=== PATIENT | female | born 1955 | race Caucasian/White ===

== ENCOUNTER → 2017-04-24 | Outpatient (CLI) | payer BC ==
[~2017-04-24] MED LIST: ATOR-54 PO; FLUO20CA37 PO; HYZ/10015 PO; LEVO75TA25 PO; METO1TAB31 PO; NITR0.4S UT; WLLSR/150 PO
[2017-04-24 16:19] LABS: RATIO 32.6 mcg/mg (0-30.0)
== END | disposition home or self-care (01) ==
LOC: C.LAB1850 14:45
PROVIDERS: ATTEND Internal Medicine Endocrinology, Diabetes & Metabolism
DX: E11.65 Type 2 diabetes mellitus with hyperglycemia (principal)

== ENCOUNTER → 2017-11-26 | Outpatient (CLI) | payer BC ==
[~2017-11-26] MED LIST changes: +METO-478 PO; -METO1TAB31 PO
[2017-11-26 09:46] LABS: HEMOGLOBIN A1C 7.5 % (4.5-5.6)
== END | disposition home or self-care (01) ==
LOC: C.LAB1850 07:34
PROVIDERS: ATTEND Internal Medicine Endocrinology, Diabetes & Metabolism
DX: E11.65 Type 2 diabetes mellitus with hyperglycemia (principal)

== ENCOUNTER 2018-01-03 19:08 | Emergency (ER) | payer BC ==
[~2018-01-03] VITALS: Ht 162.6 cm; Wt 81.6 kg
[2018-01-03 19:15] VITALS: TEMP 36.8; Ht 162.6 cm; Wt 81.6 kg
[2018-01-03 19:45] VITALS: O2SAT 97
[2018-01-03 19:47] LABS: BASO % 0.5 %; BASO ABS # 0.04 K/uL (0-0.2); EOS % 2.3 %; EOS ABS # 0.19 K/uL (0-0.5); HEMATOCRIT 41.8 % (37-47); HEMOGLOBIN 13.9 g/dL (12.0-16.0); IG# 0.02 K/uL (0.00-0.02); LYMPH % 25.3 %; LYMPH ABS # 2.05 K/uL (1.2-3.4); MEAN CELL VOLUME 88.2 fL (80-100); MEAN CORPUSCULAR HEMOGLOBIN 29.3 pg (25-34); MEAN CORPUSCULAR HGB CONC 33.3 g/dl (32-36); MEAN PLATELET VOLUME 10.1 fL (7.4-10.4); MONO % 5.8 %; MONO ABS # 0.47 K/uL (0.11-0.59); NEUT % 65.9 %; NEUT ABS # 5.34 K/uL (1.4-6.5); PLATELET COUNT 264 K/uL (130-400); RED CELL DISTRIBUTION WIDTH CV 14.1 % (11.5-14.5); RED CELL DISTRIBUTION WIDTH SD 45.7 fL (36.4-46.3); WHITE BLOOD COUNT 8.11 K/uL (4.8-10.8)
--- NOTE | 2018-01-03 19:50 | DIAGNOSTIC IMAGING REPORT ---
CHEST ONE VIEW PORTABLE CLINICAL HISTORY: EVALUATE ALTERED MENTAL STATUS/WEAKNESS COMPARISON STUDY: No previous studies for comparison. FINDINGS: The bones soft tissues and hemidiaphragms are normal. The cardiomediastinal silhouette is normal. The lungs are clear. The pulmonary vasculature is normal. IMPRESSION: Negative chest. The above report was generated using voice recognition software. It may contain grammatical, syntax or spelling errors. Electronically signed by: Víctor Pitts M.D. 01/03/2018 7:49 PM Dictated Date/Time: 01/03/2018 7:49 PM
[2018-01-03 19:57] LABS: INR 0.9 (0.9-1.1); PTT PATIENT 23.6 SECONDS (21.0-31.0)
[2018-01-03 20:05] LABS: ALBUMIN 4.3 gm/dl (3.4-5.0); ALT/SGPT 44 U/L (12-78); BLOOD UREA NITROGEN 16 mg/dl (7-18); CALCIUM 8.9 mg/dl (8.5-10.1); CARBON DIOXIDE 29 mmol/L (21-32); CREATININE 0.82 mg/dl (0.60-1.20); GLUCOSE 133 mg/dl (70-99); POTASSIUM 3.7 mmol/L (3.5-5.1); SODIUM 138 mmol/L (136-145)
[2018-01-03] MEDS ORDERED: ATOR-26 PO (20:15)
[2018-01-03 20:16] LABS: ALKALINE PHOSPHATASE 115 U/L (45-117); AST/SGOT 25 U/L (15-37); TOTAL PROTEIN 8.4 gm/dl (6.4-8.2)
[2018-01-03] MEDS ORDERED: ESCI1TAB10 PO (20:16)
[2018-01-03] MEDS ORDERED: FLUO10CA48 PO (20:18)
[2018-01-03] MEDS ORDERED: FURO-85 PO (20:20)
[2018-01-03] MEDS ORDERED: LEVO100T7 PO (20:22)
[2018-01-03] MEDS ORDERED: HYZ/10015 PO (20:29)
[2018-01-03] MEDS ORDERED: METF-384 PO (20:31)
[2018-01-03] MEDS ORDERED: MELO-84 PO (20:34)
[2018-01-03] MEDS ORDERED: NVLGI/PEN SQ ×2 (20:36→20:38)
[2018-01-03] MEDS ORDERED: LIRA1INJ2 SQ (20:42)
[2018-01-03] MEDS ORDERED: METO-217 PO (20:46)
[2018-01-03] MEDS ORDERED: CHOL500024 SQ (20:49)
--- NOTE | 2018-01-03 20:54 | DIAGNOSTIC IMAGING REPORT ---
BRAIN WITHOUT CONTRAST HISTORY: Neuropathy left facial numbness and drooping TECHNIQUE: Multiplanar multisequence MRI of the brain was performed without the use of contrast. COMPARISON STUDY: None. FINDINGS: Diffusion-weighted images are considered negative for an acute ischemic insult. There are several foci of increased signal within the periventricular deep white matter regions. This is consistent with chronic small vessel change. Ventricular system is midline. Sella and parasellar regions are unremarkable. IMPRESSION: No acute intracranial abnormality. Mild age-related chronic small vessel change. The above report was generated using voice recognition software. It may contain grammatical, syntax or spelling errors. Electronically signed by: Víctor Pitts M.D. 01/03/2018 8:53 PM Dictated Date/Time: 01/03/2018 8:52 PM
[2018-01-03] MEDS ORDERED: INSU100I23 SQ (21:11)
[2018-01-03] MEDS ORDERED: PRED20TA2 PO (21:16)
[2018-01-03] MEDS ORDERED: VALA1TAB2 PO (21:16)
--- NOTE | 2018-01-03 21:29 | EMERGENCY ROOM VISIT NOTE ---
History Report prepared by Beverley: Deanna Kinney Under the Supervision of: Dr. Silvestre Milner D.O. First contact with patient: 19:19 Chief Complaint: NEURO SYMPTOMS Stated Complaint: PARESTHESIA, LT SIDE FACE, NECK, HEADACHE History of Present Illness The patient is a 62 year old female who presents to the Emergency Room with complaints of persistent left sided facial numbness starting yesterday. She was sent to the ED after being seen at [facility]. She reports numbness to her tongue and left face. She has some spasms in the left side of her neck and a left sided headache. She feels like her balance is off and her feels that her speech is less clear than usual. She has never had this before. She denies numbness or weakness in the arms, legs, or back. She has a history of type 2 diabetes and hypothyroidism. She denies any history of stroke, [place] palsy, or shingles. She denies any chance of a tick bite. Source of History: patient, spouse/significant other Onset: yesterday Position: other (left face) Quality: numbness Timing: other (persistent) Associated Symptoms: + headache, + neck pain, No weakness Review of Systems See HPI for pertinent positives & negatives. A total of 10 systems reviewed and were otherwise negative. Past Medical & Surgical Medical Problems: (1) Diabetes (2) Hypertension Family History Cancer Diabetes mellitus Heart disease Hypertension Seizures Social History Smoking Status: Never Smoker Alcohol Use: none Drug Use: none Marital Status: Housing Status: lives with significant other Occupation Status: employed Current/Historical Medications Scheduled Atorvastatin (Lipitor), 80 MG PO DAILY Cholecalciferol (Vitamin D3 Ultra Potency), 50,000 UNITS SQ WK Escitalopram Oxalate (Lexapro), 20 MG PO DAILY Fluoxetine (Prozac), 30 MG PO DAILY Hctz/Losartan (Hyzaar 25MG/100MG), 1 TAB PO DAILY Insulin Aspart (Novolog Flexpen), 3 UNITS SQ BIDM Insulin Aspart (Novolog Flexpen), 15 UNITS SQ EVENING MEAL Insulin Glargine (Basaglar Kwikpen), 45 UNITS SQ HS Levothyroxine Sodium (Levothyroxine Sodium), 1 TAB PO DAILY Liraglutide (Weight Management (Saxenda), 1.2 MG SQ DAILY/UD Meloxicam (Mobic), 15 MG PO DAILY Metformin Hcl (Glucophage), 1,000 MG PO BID Metoprolol Succinate (Toprol Xl), 50 MG PO DAILY Prednisone (Prednisone Tab), 40 MG PO DAILY Valacyclovir Hcl (Valtrex), 1,000 MG PO TID Scheduled PRN Furosemide (Lasix), 20 MG PO BID PRN for EDEMA/WEIGHT GAIN Allergies Coded Allergies: No Known Allergies (Unverified , 09/22/12) Physical Exam Vital Signs Date Time Temp Pulse Resp B/P (MAP) Pulse Ox O2 Delivery O2 Flow Rate FiO2 01/03/18 21:33 96 24 146/88 98 01/03/18 21:08 84 01/03/18 19:47 78 16 154/97 97 Room Air 01/03/18 19:45 97 Room Air 01/03/18 19:15 36.8 76 18 170/91 98 Room Air Physical Exam GENERAL: Patient is awake, alert, and in no acute distress. Patient is resting comfortably and showing no signs of anxiety EYES: The conjunctivae are clear. The pupils are round and reactive. EARS, NOSE, MOUTH AND THROAT: The nose is without any evidence of any deformity. Mucous membranes are moist tongue is midline. TMs clear bilaterally. NECK: The neck is nontender and supple. RESPIRATORY: Normal respiratory effort is noted there is no evidence of wheezing rhonchi or rales CARDIOVASCULAR: Regular rate and rhythm noted there no murmurs rubs or gallops normal S1 normal S2 GASTROINTESTINAL: The abdomen is soft. Bowel sounds are present in all quadrants. Abdomen is nontender MUSCULOSKELETAL/EXTREMITIES: There is no evidence of gross deformity full range of motion is noted in the hips and shoulders SKIN: There is no obvious evidence of any rash. There are no petechiae, pallor or cyanosis noted. NEUROLOGIC: Patient is awake alert and oriented x3 strength is symmetric patellar reflexes are 2+ bilaterally. There was a left facial droop noted with involvement of the forehead, speech was clear. Medical Decision & Procedures ER Provider Diagnostic Interpretation: X-ray results as stated below per interpretation by me and the radiologist. Radiology results as stated below per my review and radiologist interpretation: CHEST ONE VIEW PORTABLE CLINICAL HISTORY: EVALUATE ALTERED MENTAL STATUS/WEAKNESS COMPARISON STUDY: No previous studies for comparison. FINDINGS: The bones soft tissues and hemidiaphragms are normal. The cardiomediastinal silhouette is normal. The lungs are clear. The pulmonary vasculature is normal. IMPRESSION: Negative chest. The above report was generated using voice recognition software. It may contain grammatical, syntax or spelling errors. Electronically signed by: Víctor Pitts M.D. 01/03/2018 7:49 PM Dictated Date/Time: 01/03/2018 7:49 PM BRAIN WITHOUT CONTRAST HISTORY: Neuropathy left facial numbness and drooping TECHNIQUE: Multiplanar multisequence MRI of the brain was performed without the use of contrast. COMPARISON STUDY: None. FINDINGS: Diffusion-weighted images are considered negative for an acute ischemic insult. There are several foci of increased signal within the periventricular deep white matter regions. This is consistent with chronic small vessel change. Ventricular system is midline. Sella and parasellar regions are unremarkable. IMPRESSION: No acute intracranial abnormality. Mild age-related chronic small vessel change. The above report was generated using voice recognition software. It may contain grammatical, syntax or spelling errors. Electronically signed by: Víctor Pitts M.D. 01/03/2018 8:53 PM Dictated Date/Time: 01/03/2018 8:52 PM Laboratory Results 01/03/18 19:30 Red Blood Count 4.74, Mean Corpuscular Volume 88.2, Mean Corpuscular Hemoglobin 29.3, Mean Corpuscular Hemoglobin Concent 33.3, Mean Platelet Volume 10.1, Neutrophils (%) (Auto) 65.9, Lymphocytes (%) (Auto) 25.3, Monocytes (%) (Auto) 5.8, Eosinophils (%) (Auto) 2.3, Basophils (%) (Auto) 0.5, Neutrophils # (Auto) 5.34, Lymphocytes # (Auto) 2.05, Monocytes # (Auto) 0.47, Eosinophils # (Auto) 0.19, Basophils # (Auto) 0.04 01/03/18 19:30 Test 01/03/18 19:30 01/03/18 20:02 White Blood Count 8.11 K/uL (4.8-10.8) Red Blood Count 4.74 M/uL (4.2-5.4) Hemoglobin 13.9 g/dL (12.0-16.0) Hematocrit 41.8 % (37-47) Mean Corpuscular Volume 88.2 fL (80-100) Mean Corpuscular Hemoglobin 29.3 pg (25-34) Mean Corpuscular Hemoglobin Concent 33.3 g/dl (32-36) Platelet Count 264 K/uL (130-400) Mean Platelet Volume 10.1 fL (7.4-10.4) Neutrophils (%) (Auto) 65.9 % Lymphocytes (%) (Auto) 25.3 % Monocytes (%) (Auto) 5.8 % Eosinophils (%) (Auto) 2.3 % Basophils (%) (Auto) 0.5 % Neutrophils # (Auto) 5.34 K/uL (1.4-6.5) Lymphocytes # (Auto) 2.05 K/uL (1.2-3.4) Monocytes # (Auto) 0.47 K/uL (0.11-0.59) Eosinophils # (Auto) 0.19 K/uL (0-0.5) Basophils # (Auto) 0.04 K/uL (0-0.2) RDW Standard Deviation 45.7 fL (36.4-46.3) RDW Coefficient of Variation 14.1 % (11.5-14.5) Immature Granulocyte % (Auto) 0.2 % Immature Granulocyte # (Auto) 0.02 K/uL (0.00-0.02) Prothrombin Time 9.4 SECONDS (9.0-12.0) Prothromb Time International Ratio 0.9 (0.9-1.1) Activated Partial Thromboplast Time 23.6 SECONDS (21.0-31.0) Partial Thromboplastin Ratio 0.9 Anion Gap 6.0 mmol/L (3-11) Est Creatinine Clear Calc Drug Dose 75.4 ml/min Estimated GFR () 90.1 Estimated GFR (Non- 77.8 BUN/Creatinine Ratio 20.0 (10-20) Calcium Level 8.9 mg/dl (8.5-10.1) Magnesium Level 2.2 mg/dl (1.8-2.4) Total Bilirubin 0.3 mg/dl (0.2-1) Direct Bilirubin < 0.1 mg/dl (0-0.2) Aspartate Amino Transf (AST/SGOT) 25 U/L (15-37) Alanine Aminotransferase (ALT/SGPT) 44 U/L (12-78) Alkaline Phosphatase 115 U/L (45-117) Troponin I < 0.015 ng/ml (0-0.045) Total Protein 8.4 gm/dl (6.4-8.2) Albumin 4.3 gm/dl (3.4-5.0) Thyroid Stimulating Hormone (TSH) 3.690 uIu/ml (0.300-4.500) Lyme Disease IgG Antibody NEG (NEG) Lyme Disease IgM Antibody NEG (NEG) Urine Color YELLOW Urine Appearance CLOUDY (CLEAR) Urine pH 7.5 (4.5-7.5) Urine Specific [place] 1.015 (1.000-1.030) Urine Protein NEG (NEG) Urine Glucose (UA) NEG (NEG) Urine Ketones NEG (NEG) Urine Occult Blood NEG (NEG) Urine Nitrite NEG (NEG) Urine Bilirubin NEG (NEG) Urine Urobilinogen NEG (NEG) Urine Leukocyte Esterase NEG (NEG) Urine WBC (Auto) 1-5 /hpf (0-5) Urine RBC (Auto) 0-4 /hpf (0-4) Urine Hyaline Casts (Auto) 0 /lpf (0-5) Urine Epithelial Cells (Auto) 20-30 /lpf (0-5) Urine Bacteria (Auto) NEG (NEG) Laboratory results per my review. Medications Administered Medications (Trade) Dose Ordered Sig/Monique Route Start Time Stop Time Status Last Admin Dose Admin Valacyclovir HCl (Valtrex Tab) 1,000 mg NOW ONCE PO 01/03/18 21:15 01/03/18 21:16 DC 01/03/18 21:31 1,000 MG Prednisone (PredniSONE TAB) 60 mg NOW STAT PO 01/03/18 21:09 01/03/18 21:11 DC 01/03/18 21:30 60 MG ECG Per My Interpretation Indication: weakness Rate (beats per minute): 70 Rhythm: normal sinus Findings: no ectopy, other (no acute ST segment abnormality) Comparison ECG Date: no prior available ED Course 1919: The patient was evaluated in room B12B. A complete history and physical examination were performed. 2108: Prednisone 60 mg PO. 2110: Upon reevaluation, the patient is resting comfortably. I discussed the results and treatment plan with her. She verbalized agreement of the treatment plan. She was discharged home. 2114: Valtrex Tab 1000 mg PO. Medical Decision Prior records/ancillary studies reviewed and summarized above. Nursing notes reviewed. Additional history obtained from spouse. Differential diagnosis: Etiologies such as metabolic, infection, hypo/hyperglycemia, electrolyte abnormalities, cardiac sources, intracerebral event, toxicologic, neurologic, as well as others were entertained. The patient is a 62-year-old female who presented to the emergency department for an evaluation of left-sided facial droop. The patient did not have any other symptoms and appears to have forehead involvement but she was seen at the [facility] and sent to the emergency department for possible stroke. I discussed patient's laboratory and radiographic studies with her. She was started on Valtrex and prednisone. She was encouraged to follow-up with her primary care physician as soon as possible. She was also encouraged to return the emergency department immediately if symptoms change worsen or the need arises. Medication Reconcilliation Current Medication List: was personally reviewed by me Blood Pressure Screening Patient's blood pressure: Elevated blood pressure Blood pressure disposition: Elevated BP felt to be situational Impression Primary Impression: Kevin's palsy Scribe Attestation The scribe's documentation has been prepared under my direction and personally reviewed by me in its entirety. I confirm that the note above accurately reflects all work, treatment, procedures, and medical decision making performed by me. Departure Information Dispostion Home / Self-Care Prescriptions Prednisone (Prednisone Tab) 20 Mg Tab 40 MG PO DAILY, #10 TAB Prov: Silvestre Milner, DO 01/03/18 Valacyclovir Hcl (VALTREX) 1 Gm Tab 1000 MG PO TID, #21 TAB Prov: Silvestre Milner, DO 01/03/18 Referrals Megan Valencia M.D. (PCP) Forms HOME CARE DOCUMENTATION FORM, IMPORTANT VISIT INFORMATION, WORK / SCHOOL INSTRUCTIONS Patient Instructions ED [place] Palsy, My [facility] Additional Instructions Continue all medications as prescribed. Call your family doctor to schedule a follow-up appointment. Continue to monitor your blood sugar. Your blood sugars may be very irregular while you are taking the prednisone. Consider starting [id number] medication for the stomach such as Prilosec while you are on the prednisone as it may irritate your stomach.
[2018-01-03 21:33] VITALS: BP 146/88; PULSE 96; O2SAT 98
== END 2018-01-03 21:33 | disposition home or self-care (01) ==
LOC: C.EDB 19:11
DX: G51.0 Bell's palsy (principal); E11.9 Type 2 diabetes mellitus without complications; I10 Essential (primary) hypertension; Z83.3 Family history of diabetes mellitus; Z82.49 Family history of ischemic heart disease and other diseases of the circulatory system; Z82.0 Family history of epilepsy and other diseases of the nervous system; Z79.4 Long term (current) use of insulin

== ENCOUNTER 2023-08-18 07:58 | Observation (INO) ==
--- NOTE | 2023-08-08 09:36 | Anesthesiology Consultation ---
Date of Service August 08, 2023 Assessment & Plan (1) Encounter for pre-operative examination: Chart Review Chart Review: Acceptable Risk for Surgery and Patient NOT seen in Pre Admission Testing -BMP and POC glucose to be checked AM of surgery Infectious Disease screening: Per PAT nursing assessment on 08/08/23, No known infectious disease contacts in past 10 days or current infectious disease symptoms. No recent travel outside the country. History Surgery Operation Date: 08/18/23 12:10 Proposed Procedures p Bilateral Mastectomies with Left Axillary [place] Lymph Node Biopsy - Robi Geiger MD Height/Weight Height: 5 ft Weight: 75.75 kg Allergies Allergy/AdvReac Type Severity Reaction Status Date / Time No Known Allergies Allergy Verified 08/08/23 08:04 Medications Home Medications Medication Instructions Recorded Confirmed Last Taken acetone (urine) test (Ketostix #25 ea 05/11/19 09/21/19 08/06/19 strips) atorvastatin 80 mg tablet 80 mg PO PM 05/11/19 08/08/23 08/06/19 ergocalciferol (vitamin D2) 1,250 50,000 units PO WEEKLY #14 caps 05/11/19 08/08/23 08/06/19 mcg (50,000 unit) capsule furosemide 20 mg tablet (Lasix) 20 mg PO .COMPLEX 05/11/19 08/08/23 08/06/19 insulin aspart U-100 100 unit/mL 45 units subcut UD 05/11/19 08/08/23 08/06/19 (3 mL) subcutaneous pen (Novolog FlexPen U-100 Insulin aspart) lancets 33 gauge (OneTouch Delica #100 ea 05/11/19 09/21/19 08/06/19 Lancets) levothyroxine 100 mcg tablet 100 mcg PO QAM 05/11/19 08/08/23 08/06/19 pen needle, diabetic 32 gauge x #10 ea 05/11/19 09/21/19 08/06/19 5/32" (BD Ultra-Fine Kamala Pen Needle) blood sugar diagnostic (FreeStyle #6 Boxes 05/21/19 09/21/19 08/06/19 Precision Humza Strips) alendronate 70 mg tablet 70 mg PO WK 08/07/19 08/08/23 08/06/19 aspirin 81 mg tablet,delayed 81 mg PO QAM 1008/08/23 08/06/19 release (Karrie Low Dose Aspirin) FreeStyle Adán 14 Day Dewitt #1 ea 02/17/20 Unknown (flash glucose scanning reader) FreeStyle Adán 14 Day Sensor #7 ea 02/17/20 Unknown (flash glucose sensor) atenolol 25 mg tablet 25 mg PO QAM 08/08/23 08/08/23 Unknown insulin glargine 100 unit/mL 35 unit subcut PM 08/08/23 08/08/23 Unknown subcutaneous solution losartan 100 1 tab PO PM 08/08/23 08/08/23 Unknown mg-hydrochlorothiazide 25 mg tablet tirzepatide 5 mg/0.5 mL 5 mg subcut WK 08/08/23 08/08/23 Unknown subcutaneous pen injector (Wardunjeffreyro) Past Medical History Medical History (Updated 08/08/23 @ 10:04 by Dara Pelaez PA-C) Anxiety hx of > none at present 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 tremor is mild; b/l hands and head. per neuro, 'mild and would not treat at this time'; plan to do further testing after breast surgery 2/2 FH of Parkinsons Past Family History Family History Other Diabetes Heart disease Hypertension Seizures Past Surgical History Surgical History History of breast biopsy History of cataract surgery bilat History of colonoscopy History of dilatation and curettage History of tonsillectomy History of tooth extraction Hx of laparoscopic gastric banding Social History Smoking Status: Never smoker Do You Dip or Chew Tobacco: No Hx Alcohol Use: Yes Alcohol type: hard liquor alcohol intake frequency: holidays/special occasions only Hx Substance Use: No substance use type: does not use Testing Laboratory Results 07/23/23 WBC: 8.32 H/H: 13.5/41.7 PLATELETS: 260 06/24/23 Ha1c: 8.2% Electrocardiogram Date: 07/23/23 Findings: + NSR @ (62bpm)
[~2023-08-18 07:58] MED LIST changes: +ACETAMINOPHEN 1000 MG/100 ML IV IV ONE; -ATOR-54 PO; +ENOXAPARIN INJ 30 MG/0.3 ML SYR SQ SCH; +FAMOTIDINE/PF 20 MG/2 ML VIAL IV ONE; -FLUO20CA37 PO; -HYZ/10015 PO; -LEVO75TA25 PO; +LR 15ML/HR IV SCH; -METO-478 PO; -NITR0.4S UT; -WLLSR/150 PO; +ceFAZolin 2000MG 2,000 MG/15 ML SYR IV SCH
[2023-08-18 09:45] LABS: BUN Creatinine Ratio 25.7 (10-20); Calcium 8.9 mg/dl (8.6-10.3); Creatinine Clr Calc Pharmacy 73.6 ml/min; Est GFR (African American) 105.4 ml/min; Est GFR (Non-African American) 90.9 ml/min; Potassium 3.9 mmol/L (3.5-5.1)
--- NOTE | 2023-08-18 09:47 | Nuclear Medicine Report ---
LYMPHOSCINTIGRAPHY CLINICAL HISTORY: Left breast cancer. PROCEDURE: Using standard sterile technique, 4 intradermal and one deep injection of 522.87 uCi of Ly mphoseek was placed in the left breast. The patient tolerated the procedure well. There were no immed iate complications. The patient was subsequently transported to the surgical suite. No imaging was ob tained at the referring physician's request. IMPRESSION: Injection of 522.87 uCi of Lymphoseek in the left breast. ACT 112: Negative or not required by law. Electronically signed by: Hola Lei M.D. 08/18/2023 9:45 AM
[2023-08-18] MEDS ORDERED: ONDANSETRON INJ 2 MG/ML 2 ML VIAL IV PRN (10:03)
[2023-08-18] MEDS ORDERED: SCOPOLAMINE 1 MG TDSY TD ONE ×3 (10:03→10:51)
[2023-08-18] MEDS ORDERED: ePHEDrine sulfate 50 MG/ML AMP IV PRN (10:03)
[2023-08-18] MEDS ORDERED: PROMETHAZINE HCL 6.25 MG in SODIUM CHLORIDE 0.9% 50 ML IV PRN (10:03)
[2023-08-18] MEDS ORDERED: ATROPINE SULFATE 0.1 MG/ML 10ML SYR IV PRN (10:03)
--- NOTE | 2023-08-18 10:11 | History & Physical Bridge Note ---
Date of Service August 18, 2023 History & Physical Bridge Note I have examined the patient, reviewed the History & Physical and in the interval since the performance of the History & Physical I have noted the following changes of clinical significance: no changes noted
[2023-08-18] MEDS ORDERED: BUPIVACAINE 0.25% PF 30 ML VIAL ONE (10:37)
[2023-08-18] MEDS ORDERED: BUPIVACAINE LIPOSOME 1.3% 266 MG/20 ML VIAL ONE (10:37)
[2023-08-18] MEDS ORDERED: ISOSULFAN BLUE 10 MG/ML VIAL 5 ML ONE (10:37)
[2023-08-18] MEDS ORDERED: SODIUM CHLORIDE 0.9% PF 50 ML VIAL ONE (10:37)
[2023-08-18] MEDS ORDERED: MIDAZOLAM HCL 1 MG/ML 2ML VIAL ONE ×2 (10:43)
[2023-08-18] MEDS ORDERED: LIDOCAINE 2% 2 ML VIAL/AMP(20MG/ML) INFIL ONE (10:44)
[2023-08-18] MEDS ORDERED: fentaNYL citrate PF 100 MCG/2 ML VIAL ONE ×2 (10:45)
[2023-08-18] MEDS ORDERED: HYDROmorphone INJ 2 MG/ML SYR/VIAL ONE (10:46)
[2023-08-18] MEDS ORDERED: DEXAMETHASONE SOD INJ 4 MG/ML VIAL ONE (10:48)
[2023-08-18] MEDS ORDERED: ONDANSETRON INJ 2 MG/ML 2 ML VIAL ONE ×2 (10:48→13:49)
[2023-08-18] MEDS ORDERED: METOCLOPRAMIDE HCL INJ 5 MG/ML 2 ML VIAL ONE (10:48)
[2023-08-18] MEDS ORDERED: PHENYLEPHRINE HCL 10 MG/ML VIAL ONE (11:30)
[2023-08-18] MEDS ORDERED: ePHEDrine sulfate 50 MG/ML AMP ONE (12:31)
[2023-08-18] MEDS ORDERED: SUGAMMADEX SODIUM 200 MG/2 ML VIAL IV ONE (12:36)
[2023-08-18] MEDS ORDERED: KETOROLAC 30 MG/ML VIAL ONE (12:37)
[2023-08-18] MEDS ORDERED: PROPOFOL IV EMULSION 10 MG/ML 20 ML VIAL IV ONE ×3 (12:38)
--- NOTE | 2023-08-18 14:08 | Post Operative Brief Note ---
Immediate Post Op Note v1 Date of Surgery August 18, 2023 Pre & Post Diagnosis Operation Date: 08/18/23 09:55 Pre-Op Diagnosis: Malignant Neoplasm Left Breast Post-Op Diagnosis: Malignant Neoplasm Left Breast I identified the patient and participated in the time-out.: Yes Procedure Operation Date: 08/18/23 09:55 Actual Procedures p Bilateral Mastectomies with Left Axillary [place] Lymph Node Biopsy(Bilateral) - Robi Geiger MD Surgeon Robi Geiger MD Appeals Assistant DUDLEY Schmitz assisted with tissue retraction, camera op, closure Estimated Blood Loss 30 Findings Consistent with Post-Op Diagnosis large mass left breast; sentinel lymph node x4 Drains Raheem-Wells Drain (10mm Flat. 1- right breast, 1- left breast)
--- NOTE | 2023-08-18 14:17 | Operative Report ---
Post Operative Report Pre & Post Diagnosis Operation Date: 08/18/23 09:55 Pre-Op Diagnosis: Malignant Neoplasm Left Breast Post-Op Diagnosis: Malignant Neoplasm Left Breast I identified the patient and participated in the time-out.: Yes Procedure Operation Date: 08/18/23 09:55 Actual Procedures p Bilateral Mastectomies with Left Axillary [place] Lymph Node Biopsy(Bilateral) - Robi Geiger MD Surgeon Robi Geiger MD [employer] Property Manager DUDLEY Schmitz assisted with tissue retraction, camera op, closure Estimated Blood Loss 30 Findings Consistent with Post-Op Diagnosis Specimens 1. Right breast mastectomy 2. Left breast mastectomy 3. [place] lymph x1, hot and blue, 2040 count 4. [place] lymph node x2, hot, 150 count 5. [place] lymph node #3, hot, 175 count 6. [place] lymph node #4, hot, 345, Drains 10 Danish flat FERNANDO drain right breast 10 Danish flat FERNANDO drain left breast Anesthesia Type General Complications no immediate complication Description of Procedure the patient was taken to the operating room, placed supine on the operating table. A timeout is performed, perioperative antibiotics were administered, SCD boots were placed. After adequate anesthesia and analgesia was obtained, Ramirez catheter was placed. 5 cc of Lymphazurin blue was injected into and around the nipple areolar complex on the left side The patient was prepped and draped in the normal sterile fashion. Prior incision lines had been drawn on the right and left breast. We began on the right. Elliptical incision was made using the drawn out incision line with a 15 blade scalpel. This carried into the subcutaneous tissue. Flaps were raised with the Bovie electrocautery using a traction countertraction technique with Connolly's and Nunn retractors. A good plane between the subcutaneous tissue and breast tissue was obtained. The limits of the dissection were superiorly the clavicle, medially to the sternum, inferiorly to the rectus sheath; and laterally the axillary fat pad. Bleeders were controlled with the harmonic scalpel. The breast was then removed from the underlying pectoralis major muscle with the Bovie electrocautery, taking care to remove the fascia with the specimen. The breast was removed, oriented with sutures and ink, and was sent off the field. Attention was turned to hemostasis, which was attended to. The wound was copiously irrigated and suctioned free. A 10 Danish flat FERNANDO drain was placed through separate stab incision and was secured with 3-0 nylon suture. Subcutaneous tissue was closed with interrupted 3-0 Vicryl. The skin was closed with a running 4-0 Monocryl subcuticular stitch. Dermabond was applied. We then turned our attention to the left side. Again, Elliptical incision was made using the drawn out incision line with a 15 blade scalpel. This carried into the subcutaneous tissue. Flaps were raised with the Bovie electrocautery using a traction countertraction technique with Connolly's and Nunn retractors. A good plane between the subcutaneous tissue and breast tissue was obtained. The limits of the dissection were superiorly the clavicle, medially to the sternum, inferiorly to the rectus sheath; and laterally the axillary fat pad. once the superior and lateral flaps were raised, we turned our attention to the sentinel node. Using the neoprobe, we were able to identify the sentinel node. This was dissected free circumferentially with Bovie electrocautery as well as the harmonic scalpel. The node was removed, and the count was 2040. The node was blue. Further dissection and use of the neoprobe yielded 3 other sentinel lymph nodes. These were also removed with the electrocautery and the harmonic scalpel. The background radiation count was 38. We then turned our attention back to the breast, and continued with the mastectomy. The medial and inferior flaps were raised. Bleeders were controlled with the harmonic scalpel. The breast was then removed from the underlying pectoralis major muscle with the Bovie electrocautery, taking care to remove the fascia with the specimen. The breast was removed, oriented with sutures and ink, and was sent off the field. Attention was turned to hemostasis, which was attended to. The wound was copiously irrigated and suctioned free. A 10 Danish flat FERNANDO drain was placed through separate stab incision and was secured with 3-0 nylon suture. Subcutaneous tissue was closed with interrupted 3-0 Vicryl. The skin was closed with a running 4-0 Monocryl subcuticular stitch. Dermabond was applied. my field technical assistant was necessary throughout the procedure for tissue retraction, possible camera operation, and closure of the wounds. I understand that section 1842(b)(7)(D) of the Social Security act generally prohibits Medicare physician fee schedule payment for the services of assistants at surgery in teaching hospitals when qualified residents are available to furnish such services. I certify that the services for which payment is claimed were medically necessary and that no qualified resident was available to perform the services. I further understand that these services are subject to postpayment review by the Medicare carrier. I attest to the content of the Intraoperative Record and any orders documented therein. Any exceptions are noted below.
--- NOTE | 2023-08-18 15:20 | Anesthesiology Progress Note ---
Date of Service August 18, 2023 Anesthesia Post Procedure Vital Signs Vital Signs: Temp Pulse Pulse Resp BP Pulse Ox O2 Del Method 08/18/23 15:15 88 16 142/78 H 95 Oxymask 08/18/23 15:05 87 16 139/91 95 Oxymask 08/18/23 14:55 88 16 160/83 H 96 Oxymask 08/18/23 14:46 36.2 C L 90 16 171/86 H 96 Oxymask 08/18/23 08:45 36.7 C 63 18 141/82 H 100 Room Air O2 Flow Rate 08/18/23 15:15 5 08/18/23 15:05 5 08/18/23 14:55 5 08/18/23 14:46 5 08/18/23 08:45 Transfer of Care Handoff Completed per policy Notes Mental Status: alert / awake / arousable Patient Amnestic to Procedure: Yes Nausea / Vomiting: adequately controlled Pain: adequately controlled Airway Patency, RR, SpO2: stable & adequate BP & HR: stable & adequate Hydration State: stable & adequate Anesthetic Complications: no major complications apparent
[2023-08-18] MEDS: HYDROmorphone INJ 1 MG/ML SYRINGE IV PRN ×5 (15:21→17:32)
[2023-08-18] MEDS ORDERED: PROMETHAZINE HCL 12.5 MG in SODIUM CHLORIDE 0.9% 50 ML IV PRN (16:23)
[2023-08-18] MEDS ORDERED: MoRPHine SULFATE 4 MG/ML 1 ML CARP\\VIAL IV PRN (16:23)
--- NOTE | 2023-08-18 17:13 | Hospitalist Consultation ---
Date of Consultation August 18, 2023 Assessment & Plan (1) Cancer of left breast: This is a 67 y/o female with insulin-requiring DM, hypothyroidism, dyslipidemia, HTN, recent diagnosis of breast cancer, and other medical history as outlined who underwent bilateral mastectomy today by Dr. Geiger for left breast cancer. Currently, she is seen in PACU for a post-operative medical management consult. Her only complaint is pain related to procedure, which is being managed with prn medications. POD #0 Bilateral Mastectomy - Pain control, DVT prophylaxis, Activity per primary team - Encourage incentive spirometry - Labs in AM - CBC, BMP (2) Diabetes type 2, uncontrolled: Fluctuating blood sugars at home including a recent low in the 60s. Basal Lantus but reduced dose until maintain oral intake post-op Novolog Insulin sliding scale Diabetic diet when appropriate BSG ACHS (3) Hypothyroidism: Continue outpatient levothyroxine (4) Hypertension: BP slightly high in PACU but suspect due to pain - will continue to monitor. Resume home meds tomorrow. (5) Dyslipidemia: Plan Pt seen and reviewed with collaborating physician, Dr. Hebert. Plan of care discussed and as outlined above. Thank you for this consultation. We will continue to follow the patient with you. A member of the [facility] team is available 05/05 via [employer]. Please don't hesitate to reach out with questions. Hector Cobb PA-C Supervising Physician Co-Signing Physician Notes 67-year-old female with PMH of DM, hypothyroidism, HLD, HTN with recent diagnosis of left breast cancer underwent bilateral mastectomy today, was evaluated at PACU at bedside for medical management consult. Patient reports operative pain fairly under control with pain medications. Can continue home medications as able, sliding scale insulin while in hospital for diabetes. Pain management, nausea control. On exam: GENERAL: Alert and oriented x3. NAD, on 2L NC O2. HEENT: No pallor, no icterus. Pupils equal, round and reactive to light. Oral mucosa moist. NECK: No JVD, no neck masses. Chest: Clean dressing without soakage, c/d/i. Drains in place. HEART: S1 and S2 heard. Regular rate and rhythm. No murmur, no gallop. RESPIRATORY SYSTEM: Normal AP diameter. No accessory muscle use. No wheezing, no crackles. ABDOMEN: Soft, bowel sounds present, nontender, no distention. CENTRAL NERVOUS SYSTEM: No facial droop. Speech is clear. Obeys simple commands. Moves extremities. EXTREMITIES: No edema, no erythema seen. I have seen and examined the patient and have discussed the case with the provider above. I agree with the assessment and plan as stated. History of Present Illness Reason for Consultation: Post-operative Medical Management Requesting Physician: Dr. Robi Geiger Attending Physician: Robi Geiger MD History of Present Illness This is a 67 y/o female with insulin-requiring DM, hypothyroidism, dyslipidemia, HTN, recent diagnosis of breast cancer, and other medical history as outlined below who underwent bilateral mastectomy with sentinel node biopsy today by Dr. Geiger. We have been consulted to assist with post-operative medical management. Currently, pt is seen in PACU. She has some operative pain but this has overall been controlled on ordered pain meds. She denies chest pain, shortness of breath, palpitations, N/V. She still feels groggy and lightheaded from anesthesia but reports this is gradually improving. She uses a DexCom to monitor her blood sugar home. Over the last few days, she had a high of >300 but relates to a missed dose of insulin. This morning, her sugar was in the 120s. Allergies Allergy/AdvReac Type Severity Reaction Status Date / Time No Known Allergies Allergy Verified 08/18/23 09:02 Home Medications Medication Instructions Recorded Confirmed Type acetone (urine) test (Ketostix #25 ea 05/11/19 09/21/19 History strips) atorvastatin 80 mg tablet 80 mg PO PM 05/11/19 08/18/23 History ergocalciferol (vitamin D2) 1,250 50,000 units PO WEEKLY #14 caps 05/11/19 08/18/23 History mcg (50,000 unit) capsule furosemide 20 mg tablet (Lasix) 20 mg PO .COMPLEX 05/11/19 08/18/23 History insulin aspart U-100 100 unit/mL 5 - 25 units subcut UD 05/11/19 08/18/23 History (3 mL) subcutaneous pen (Novolog FlexPen U-100 Insulin aspart) lancets 33 gauge ([facility] ea 05/11/19 09/21/19 History Lancets) levothyroxine 100 mcg tablet 100 mcg PO QAM 05/11/19 08/18/23 History pen needle, diabetic 32 gauge x #10 ea 05/11/19 09/21/19 History 5/32" (BD Ultra-Fine Kamala Pen Needle) blood sugar diagnostic (FreeStyle #6 Boxes 05/21/19 09/21/19 Rx Precision Humza Strips) alendronate 70 mg tablet 70 mg PO WK 08/07/19 08/18/23 History aspirin 81 mg tablet,delayed 81 mg PO QAM 08/07/19 08/18/23 History release (Karrie Low Dose Aspirin) FreeStyle Adán 14 Day [place] #1 ea 02/17/20 Rx (flash glucose scanning reader) FreeStyle Adán 14 Day Sensor #7 ea 02/17/20 Rx (flash glucose sensor) atenolol 25 mg tablet 25 mg PO QAM 08/08/23 08/18/23 History insulin glargine 100 unit/mL 35 unit subcut PM 08/08/23 08/18/23 History subcutaneous solution losartan 100 1 tab PO PM 08/08/23 08/18/23 History mg-hydrochlorothiazide 25 mg tablet tirzepatide 5 mg/0.5 mL 5 mg subcut WK 08/08/23 08/18/23 History subcutaneous pen injector (Wardunjaro) Patient History Medical History Tremor pt saw neuro 08/2023. tremor is mild; b/l hands and head. 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 Breast cancer dx jul 01 2023 at [facility] > left breast Anxiety hx of > none at present History of COVID-2021; resolved Dyslipidemia Hypothyroidism Diabetes type 2, uncontrolled 06/24/23 Ha1c: 8.2% Hypertension Surgical History History of dilatation and curettage History of breast biopsy History of colonoscopy History of tooth extraction History of cataract surgery bilat History of tonsillectomy Hx of laparoscopic gastric banding Family History Mother Breast cancer Other Diabetes Heart disease Hypertension Seizures Social History Smoking Status: Never smoker Second Hand Exposure: No; Do You Dip or Chew Tobacco: No; Tobacco Cessation Education Requested by Patient: No Hx Alcohol Use: Yes Alcohol type: hard liquor Hx Substance Use: No Preferred Language: Upper Sorbian Communication Ability: Effective 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 Beliefs That Will Affect Care: None Current Living Situation: Spouse Other Information That Helps Us Care for You: No Feels Safe at Home: Yes Safety Concerns: Feels Safe At This Time Assistive Devices: None Review of Systems Review of Systems: All systems reviewed & are unremarkable except as noted in HPI & below Constitutional: no fever and no chills Eyes: no diplopia Ear, Nose, Mouth, Throat: no nasal congestion and no sore throat Respiratory: no cough and no dyspnea Cardiovascular: no chest pain and no palpitations Gastrointestinal: no abdominal pain, no nausea and no vomiting Genitourinary: no dysuria and no hematuria Integumentary: no yellowing of the skin Neurologic: + tremor(s) (being worked up by neurolog y); no dizziness and no headache(s) Physical Exam Physical Exam: General: awake, slightly groggy but oriented x 3, answers questions appropriately, NAD Mouth: slightly dry oral mucosa Neck: trachea midline Heart: RRR Lungs: diminished but clear Abdomen: soft, NT, +BS Extremities: no pedal edema, distal pulses intact and equal Skin: no jaundice, chest dressings C/D/I, +drains in place Results & Data Results & Data Vital Signs (Past 12 Hours) Vital Signs Temp Pulse Pulse Resp BP Pulse Ox O2 Del Method 08/18/23 16:50 36.4 C L 80 15 137/67 95 Nasal Cannula 08/18/23 16:35 81 14 140/75 96 Nasal Cannula 08/18/23 16:20 81 13 153/77 H 96 Nasal Cannula 08/18/23 16:05 80 14 150/82 H 96 Nasal Cannula 08/18/23 15:55 36.4 C L 82 14 137/81 96 Nasal Cannula 08/18/23 15:45 82 12 143/84 H 96 Nasal Cannula 08/18/23 15:35 84 12 148/78 H 97 Nasal Cannula 08/18/23 15:25 84 14 158/74 H 98 Nasal Cannula 08/18/23 15:15 88 16 142/78 H 95 Oxymask 08/18/23 15:05 87 16 139/91 95 Oxymask 08/18/23 14:55 88 16 160/83 H 96 Oxymask 08/18/23 14:46 36.2 C L 90 16 171/86 H 96 Oxymask 08/18/23 08:45 36.7 C 63 18 141/82 H 100 Room Air O2 Flow Rate 08/18/23 16:50 2 08/18/23 16:35 2 08/18/23 16:20 2 08/18/23 16:05 2 08/18/23 15:55 2 08/18/23 15:45 2 08/18/23 15:35 2 08/18/23 15:25 2 08/18/23 15:15 5 08/18/23 15:05 5 08/18/23 14:55 5 08/18/23 14:46 5 08/18/23 08:45 Laboratory Results 08/18/23 08/18/23 08/18/23 08:51 09:07 15:05 Sodium 138 Potassium 3.9 Chloride 106 Carbon Dioxide 28 Anion Gap 4 BUN 18 Creatinine 0.70 Est Cr Clr Drug Dosing 73.6 Est GFR ( Amer) 105.4 Est GFR (Non-Af Amer) 90.9 BUN/Creatinine Ratio 25.7 H Glucose 138 H POC Glucose 122 H 173 H Calcium 8.9 Diagnostic Findings [place] Node Without Imaging Nuclear Med 08/18/23 08:13 LYMPHOSCINTIGRAPHY CLINICAL HISTORY: Left breast cancer. PROCEDURE: Using standard sterile technique, 4 intradermal and one deep injection of 522.87 uCi of Lymphoseek was placed in the left breast. The patient tolerated the procedure well. There were no immediate complications. The patient was subsequently transported to the surgical suite. No imaging was obtained at the referring physician's request. IMPRESSION: Injection of 522.87 uCi of Lymphoseek in the left breast. ACT 112: Negative or not required by law. Electronically signed by: Hola Lei M.D. 08/18/2023 9:45 AM Medications Administered Enoxaparin Sodium (Enoxaparin Inj 30 Mg/0.3 Ml Syr) 30 mg SQ PREOP JODY Stop: 08/18/23 18:00 Last Admin: 08/18/23 09:23 Dose: 30 mg Documented By: MARBIN Hydromorphone HCl (Hydromorphone Inj 1 Mg/Ml Syringe) 0.25 mg IV Q5M PRN PRN Reason: PACU Use Only-Pain Stop: 08/18/23 18:04 Last Admin: 08/18/23 17:32 Dose: 0.25 mg Documented By: Admin: 08/18/23 15:36 Dose: 0.25 mg Documented By: Admin: 08/18/23 15:31 Dose: 0.25 mg Documented By: Admin: 08/18/23 15:26 Dose: 0.25 mg Documented By: Admin: 08/18/23 15:21 Dose: 0.25 mg Documented By: ODIN Lactated Ringer's (Lr) 1,000 mls @ 15 mls/hr IV .Q24H JODY Stop: 08/19/23 05:59 Last Infusion: 08/18/23 10:58 Dose: Infused Documented By: Admin: 08/18/23 09:06 Dose: 15 mls/hr Documented By: MARBIN Cefazolin Sodium (Ancef 2000mg) 2,000 mg in 15 mls @ 3.75 mls/min IV PREOP JODY; Protocol Stop: 08/18/23 18:00 Last Admin: 08/18/23 10:58 Dose: 3.75 mls/min Documented By: LUZ ELENA Discontinued Medications Bupivacaine HCl (Bupivacaine 0.25% Pf 30 Ml Vial) Confirm Administered Dose 30 ml .ROUTE .STK-MED ONE Stop: 08/18/23 10:38 Last Admin: 08/18/23 13:48 Dose: 20 ml Documented By: FLORENCE Bupivacaine Liposome (Bupivacaine Liposome 1.3% 266 Mg/20 Ml Vial) Confirm Administered Dose 266 mg .ROUTE .STK-MED ONE Stop: 08/18/23 10:38 Last Admin: 08/18/23 13:49 Dose: 266 mg Documented By: FLORENCE Isosulfan Blue (Isosulfan Blue 10 Mg/Ml Vial 5 Ml) Confirm Administered Dose 50 mg .ROUTE .STK-MED ONE Stop: 08/18/23 10:38 Last Admin: 08/18/23 12:03 Dose: 45 mg Documented By: TARUN Scopolamine (Scopolamine 1 Mg Tdsy) 1 mg TD ONE ONE Stop: 08/18/23 10:04 Last Admin: 08/18/23 10:06 Dose: 1 mg Documented By: MARBIN Scopolamine (Scopolamine 1 Mg Tdsy) Confirm Administered Dose 1 mg TD .STK-MED ONE Stop: 08/18/23 10:06 Last Admin: 08/18/23 10:06 Dose: Not Given Documented By: MARBIN Sodium Chloride (Sodium Chloride 0.9% Pf 50 Ml Vial) Confirm Administered Dose 50 ml .ROUTE .STK-MED ONE Stop: 08/18/23 10:38 Last Admin: 08/18/23 13:49 Dose: 20 ml Documented By: FLORENCE (1) Cancer of left breast Breast location: unspecified site of breast Estrogen receptor status: unspecified Patient sex: female Qualified Code(s): C50.912 - Malignant neoplasm of unspecified site of left female breast (2) Diabetes type 2, uncontrolled Glycemic state: with hyperglycemia Qualified Code(s): E11.65 - Type 2 diabetes mellitus with hyperglycemia (3) Hypothyroidism Hypothyroidism type: unspecified Qualified Code(s): E03.9 - Hypothyroidism, unspecified (4) Hypertension Hypertension type: primary hypertension Qualified Code(s): I10 - Essential (primary) hypertension
[2023-08-18] MEDS ORDERED: MoRPHine SULFATE 4 MG/ML 1 ML CARP\\VIAL ONE (19:01)
[2023-08-18] MEDS: MoRPHine SULFATE 2 MG/ML CARP IV PRN (19:04)
[2023-08-18] MEDS: ONDANSETRON INJ 2 MG/ML 2 ML VIAL IV PRN (19:17)
[2023-08-18] MEDS ORDERED: GLUCOSE 40% GEL 15 GM TUBE PO PRN (19:58)
[2023-08-18] MEDS ORDERED: GLUCOSE 10 TAB/TUBE PO PRN (19:58)
[2023-08-18] MEDS ORDERED: DEXTROSE 50% 50 ML SYRINGE IV PRN (19:58)
[2023-08-18] MEDS ORDERED: CARBOHYDRATES FOR HYPOGLYCEMIA PO PRN (19:58)
[2023-08-18] MEDS ORDERED: GLUCAGON FOR INJ 1 MG VIAL SQ PRN (19:58)
[2023-08-18] MEDS: CHECK SCOPOLAMINE PATCH PLACEMENT SCH ×2 (20:58→23:21)
[2023-08-18] MEDS: ATORVASTATIN 40 MG TAB PO SCH (21:30)
[2023-08-18] MEDS: LOSARTAN/HCTZ 50/12.5MG TAB PO SCH (21:30)
[2023-08-18] MEDS: LANTUS PER UNIT CHARGE SQ SCH (21:30)
[2023-08-18] MEDS: INSULIN ASPART PER UNIT CHARGE SC SCH (21:30)
[2023-08-18] MEDS: oxyCODONE/ACETAMINOPHEN 5mg/325mg TAB PO PRN (22:29)
[2023-08-19] MEDS: MoRPHine SULFATE 2 MG/ML CARP IV PRN ×2 (00:56→21:03)
[2023-08-19] MEDS: oxyCODONE/ACETAMINOPHEN 5mg/325mg TAB PO PRN ×3 (05:42→18:03)
[2023-08-19] MEDS: LEVOTHYROXINE SODIUM 100 MCG TABLET PO SCH (06:22)
[2023-08-19 07:59] LABS: Basophils # (auto) 0.05 K/uL (0.00-0.20); Basophils % (auto) 0.6 %; Eosinophils # (auto) 0.06 K/uL (0.00-0.50); Eosinophils % (auto) 0.7 %; Hematocrit (blood only) 31.1 % (37.0-47.0); Hemoglobin 9.9 g/dl (12.0-16.0); Immature Granulocytes # (auto) 0.04 K/uL (0.01-0.20); Immature Granulocytes % (auto) 0.5 %; Lymphocytes # (auto) 1.53 K/uL (1.20-3.40); Lymphocytes % (auto) 18.6 %; Mean Corpuscular Hemoglobin 29.2 pg (25.0-34.0); Mean Corpuscular Hgb Conc 31.8 g/dL (32.0-36.0); Mean Corpuscular Volume 91.7 fL (80.0-100.0); Mean Platelet Volume 10.9 fL (9.4-12.4); Monocytes % (auto) 9.7 %; Neutrophils # (auto) 5.75 K/uL (1.40-6.50); Neutrophils % (auto) 69.9 %; Platelet Count 248 K/uL (130-400); RDW Standard Deviation 47.5 fL (36.4-46.3); Red Blood Count 3.39 M/uL (4.20-5.40); White Blood Count 8.23 K/ul (4.8-10.8)
[2023-08-19 08:21] LABS: BUN Creatinine Ratio 22.1 (10-20); Calcium 8.1 mg/dl (8.6-10.3); Creatinine Clr Calc Pharmacy 75.8 ml/min; Est GFR (African American) 106.4 ml/min; Est GFR (Non-African American) 91.8 ml/min
[2023-08-19] MEDS: ASPIRIN 81 MG ECTAB PO SCH (09:00)
[2023-08-19] MEDS: CHECK SCOPOLAMINE PATCH PLACEMENT SCH ×2 (09:00→17:46)
[2023-08-19] MEDS: ATENOLOL 25 MG TABLET PO SCH (09:00)
[2023-08-19] MEDS: INSULIN ASPART PER UNIT CHARGE SC SCH ×4 (09:13→21:00)
[2023-08-19] MEDS: LANTUS PER UNIT CHARGE SQ SCH ×2 (09:13→21:00)
[2023-08-19 09:49] LABS: Estimated Average Glucose 194 mg/dl; Hemoglobin A1C 8.4 % (4.5-5.6)
[2023-08-19] MEDS ORDERED: KETOROLAC 30 MG/ML VIAL IV ONE (11:14)
--- NOTE | 2023-08-19 12:20 | Surgery Progress Note ---
Date of Service August 19, 2023 Assessment & Plan (1) Cancer of left breast: Plan POD # 1 s/p bilateral mastectomy with left sentinel lymph node biopsy avss postop pain moderate but controlled no n,v tolerating diet Plan: Will add one time dose of Toradol now Continue Percocet prn pain continue diabetic diet will recheck this afternoon if pain controlled will plan to discharge home Continue tariq drains to bulb suction Dr. Geiger has seen and examined pt, agrees with above. patient re-evaluated at 3:15 pm: Pain better after Toradol this am, pain about 2/10. Has not had anything since Toradol. Tolerating diet, urinating without difficulty, ambulated hallway Okay to discharge after dinner if feeling well and pain controlled with oral Percocet discharge instructions reviewed f/u in 1 week Rx for Percocet sent to pharmacy Admission and Anticipated Discharge Date Admission Date: August 18, 2023 Subjective feeling okay, having some pain, pain starting to increase this am. Had percocet two tabs this morning around 9:30 am. Was up to bathroom and had some coughing which caused pain no fevers or chills tolerating diet Physical Exam Constitutional: WD/WN, vitals as above no acute distress and not ill appearing Respiratory: normal respiratory effort; no respiratory distress, no labored breathing, no retractions and no cough Chest (Breasts): Additional Comments: surgical bra in place, incisions not inspected. Drains with bloody serosanguineous output, right sided drain more bloody. Skin: no rashes, warm and dry Psychiatric: A+Ox3, euthymic affect Results & Data Vital Signs (Past 12 Hours) Vital Signs Temp Pulse Pulse Resp BP Pulse Ox O2 Del Method 08/19/23 11:46 36.8 C 61 18 120/73 97 Room Air 08/19/23 10:46 75 119/70 98 Room Air 08/19/23 09:02 75 122/68 97 Room Air 08/19/23 08:12 36.5 C 71 16 95/59 L 97 Room Air 08/19/23 03:21 36.6 C 81 16 104/65 96 Room Air Laboratory Results 08/19/23 08/19/23 08/19/23 Range/Units 11:26 07:44 07:14 WBC 8.23 (4.8-10.8) K/ul RBC 3.39 L (4.20-5.40) M/uL Hgb 9.9 L (12.0-16.0) g/dl Hct 31.1 L (37.0-47.0) % MCV 91.7 (80.0-100.0) fL MCH 29.2 (25.0-34.0) pg MCHC 31.8 L (32.0-36.0) g/dL RDW Std Deviation 47.5 H (36.4-46.3) fL RDW Coeff of El 14.0 (11.5-14.5) % Plt Count 248 (130-400) K/uL MPV 10.9 (9.4-12.4) fL Immature Gran % (Auto) 0.5 % Neut % (Auto) 69.9 % Lymph % (Auto) 18.6 % [place] % (Auto) 9.7 % Eos % (Auto) 0.7 % Baso % (Auto) 0.6 % Neut # (Auto) 5.75 (1.40-6.50) K/uL Lymph # (Auto) 1.53 (1.20-3.40) K/uL [place] # (Auto) 0.80 H (0.11-0.59) K/uL Eos # (Auto) 0.06 (0.00-0.50) K/uL Baso # (Auto) 0.05 (0.00-0.20) K/uL Immature Gran # (Auto) 0.04 (0.01-0.20) K/uL Sodium 137 (136-145) mmol/L Potassium 4.0 (3.5-5.1) mmol/L Chloride 104 (98-107) mmol/L Carbon Dioxide 28 (21-32) mmol/L Anion Gap 5 (3-11) BUN 15 (6-23) mg/dl Creatinine 0.68 (0.6-1.2) mg/dl Est Cr Clr Drug Dosing 75.8 ml/min Est GFR ( Amer) 106.4 ml/min Est GFR (Non-Af Amer) 91.8 ml/min BUN/Creatinine Ratio 22.1 H (10-20) Glucose 140 H (70-99(Fasting)) mg/dl POC Glucose 168 H 137 H (70-99) mg/dl Estimat Average Glucose 194 mg/dl Hemoglobin A1c 8.4 H (4.5-5.6) % Calcium 8.1 L (8.6-10.3) mg/dl 08/18/23 08/18/23 Range/Units 20:07 15:05 WBC (4.8-10.8) K/ul RBC (4.20-5.40) M/uL Hgb (12.0-16.0) g/dl Hct (37.0-47.0) % MCV (80.0-100.0) fL MCH (25.0-34.0) pg MCHC (32.0-36.0) g/dL RDW Std Deviation (36.4-46.3) fL RDW Coeff of El (11.5-14.5) % Plt Count (130-400) K/uL MPV (9.4-12.4) fL Immature Gran % (Auto) % Neut % (Auto) % Lymph % (Auto) % [place] % (Auto) % Eos % (Auto) % Baso % (Auto) % Neut # (Auto) (1.40-6.50) K/uL Lymph # (Auto) (1.20-3.40) K/uL [place] # (Auto) (0.11-0.59) K/uL Eos # (Auto) (0.00-0.50) K/uL Baso # (Auto) (0.00-0.20) K/uL Immature Gran # (Auto) (0.01-0.20) K/uL Sodium (136-145) mmol/L Potassium (3.5-5.1) mmol/L Chloride (98-107) mmol/L Carbon Dioxide (21-32) mmol/L Anion Gap (3-11) BUN (6-23) mg/dl Creatinine (0.6-1.2) mg/dl Est Cr Clr Drug Dosing ml/min Est GFR ( Amer) ml/min Est GFR (Non-Af Amer) ml/min BUN/Creatinine Ratio (10-20) Glucose (70-99(Fasting)) mg/dl POC Glucose 239 H 173 H (70-99) mg/dl Estimat Average Glucose mg/dl Hemoglobin A1c (4.5-5.6) % Calcium (8.6-10.3) mg/dl (1) Cancer of left breast Breast location: unspecified site of breast Estrogen receptor status: unspecified Patient sex: female Qualified Code(s): C50.912 - Malignant neoplasm of unspecified site of left female breast
--- NOTE | 2023-08-19 15:11 | Hospitalist Progress Note ---
Date of Service August 19, 2023 Assessment & Plan (1) Cancer of left breast: Plan: This is a 67 y/o female with insulin-requiring DM, hypothyroidism, dyslipidemia, HTN, recent diagnosis of breast cancer, and other medical history as outlined who underwent bilateral mastectomy today by Dr. Geiger for left breast cancer. Currently, she is seen in PACU for a post-operative medical management consult. Her only complaint is pain related to procedure, which is being managed with prn medications. POD #1 Bilateral Mastectomy done on 08/18/2023 - Pain control, DVT prophylaxis, Activity per primary team - Encourage incentive spirometry -Management will be as per surgeon -Minimal discomfort and remains medically stable Acute blood loss anemia Hemoglobin dropped to 9.9 from 15.3 The patient remained asymptomatic We will monitor CBC (2) Diabetes type 2, uncontrolled: Plan: Fluctuating blood sugars at home including a recent low in the 60s. Basal Lantus but reduced dose until maintain oral intake post-op Novolog Insulin sliding scale Diabetic diet when appropriate BSG ACHS Blood sugar remains stable (3) Hypothyroidism: Plan: Continue outpatient levothyroxine (4) Hypertension: Plan: BP slightly high in PACU but suspect due to pain - will continue to monitor. Resume home meds tomorrow. Blood pressure remains stable (5) Dyslipidemia: Admission and Anticipated Discharge Date Admission Date: August 18, 2023 Subjective 08/19/2023 The patient was seen and examined in medical floor She is a status post bilateral mastectomy and left axillary sentinel node biopsy Minimal symptoms but denies any other significant symptoms following the procedure Review of Systems Review of Systems: All systems reviewed and are unremarkable except as noted below Physical Exam Physical Exam: Lying in bed comfortably Constitutional: well developed, well nourished and + obese Eyes: PERRL, conjunctivae normal, anicteric sclerae ENMT: external ear and nose normal, oropharynx normal Neck: trachea midline, no thyromegaly Respiratory: no respiratory distress Auscultation: lungs clear to auscultation bilaterally Cardiovascular: Rate/Rhythm: regular rate and regular rhythm; not tachycardic Heart Sounds: normal S1 and normal S2; no murmur Extremities: + edema (Trace edema bilaterally) Gastrointestinal (Abdomen): Inspection/Auscultation: normal bowel sounds; abdomen not distended Percussion/Palpation: abdomen soft; abdomen nontender Musculoskeletal: No acute arthritis involving any of the joint Neurologic: normal touch/pain/proprioception and moves all extremities; no focal motor deficits Psychiatric: A+Ox3, euthymic affect Lymphatic: no cervical or axillary lymphadenopathy Results & Data Results & Data Vital Signs (Past 12 Hours) Vital Signs Temp Pulse Pulse Resp BP Pulse Ox O2 Del Method 08/19/23 13:59 36.8 C 66 18 124/71 96 Room Air 08/19/23 11:46 36.8 C 61 18 120/73 97 Room Air 08/19/23 10:46 75 119/70 98 Room Air 08/19/23 09:02 75 122/68 97 Room Air 08/19/23 08:12 36.5 C 71 16 95/59 L 97 Room Air 08/19/23 03:21 36.6 C 81 16 104/65 96 Room Air Laboratory Results Short CBC 08/19/23 Range/Units 07:14 WBC 8.23 (4.8-10.8) K/ul Hgb 9.9 L (12.0-16.0) g/dl Hct 31.1 L (37.0-47.0) % Plt Count 248 (130-400) K/uL BMP 08/19/23 07:14 Sodium 137 Potassium 4.0 Chloride 104 Carbon Dioxide 28 BUN 15 Creatinine 0.68 Glucose 140 H Calcium 8.1 L Medications Administered Current Inpatient Medications Aspirin (Aspirin 81 Mg Ectab) 81 mg PO QAM JODY Stop: 09/18/23 08:59 Last Admin: 08/19/23 09:00 Dose: 81 mg Atenolol (Atenolol 25 Mg Tablet) 25 mg PO QAM JODY Stop: 09/18/23 08:59 Last Admin: 08/19/23 09:00 Dose: Not Given Atorvastatin Calcium (Atorvastatin 40 Mg Tab) 80 mg PO PM JODY Stop: 09/17/23 20:59 Last Admin: 08/18/23 21:30 Dose: 80 mg Dextrose (Dextrose 50% 50 Ml Syringe) 25 - 50 ml IV UD PRN; Protocol PRN Reason: Hypoglycemia Protocol Stop: 09/17/23 19:57 Glucagon (Glucagon For Inj 1 Mg Vial) 1 mg SQ UD PRN; Protocol PRN Reason: Hypoglycemia Protocol Stop: 09/17/23 19:57 Glucose (Glucose 10 Tab/Tube) 4 - 8 tab PO UD PRN; Protocol PRN Reason: Hypoglycemia Treatment Stop: 09/17/23 19:57 Glucose (Glucose 40% Gel 15 Gm Tube) 15 - 30 gm PO UD PRN; Protocol PRN Reason: Hypoglycemia Protocol Stop: 09/17/23 19:57 HCTZ/Losartan Potassium (Losartan/Hctz 50/12.5mg Tab) 1 tab PO PM [facility] Stop: 09/17/23 20:59 Last Admin: 08/18/23 21:30 Dose: 1 tab Promethazine HCl 12.5 mg/ (Sodium Chloride) 50.5 mls @ 204 mls/hr IV Q6H PRN PRN Reason: Nausea And Vomiting Stop: 09/17/23 16:22 Insulin Aspart (Insulin Aspart Per Unit Charge) 0 units SC ACHS [facility] Stop: 09/17/23 20:59 Last Admin: 08/19/23 12:26 Dose: 5 units Insulin Glargine (Lantus Per Unit Charge) 8 units SQ BID [facility] Stop: 09/17/23 20:59 Last Admin: 08/19/23 09:13 Dose: 8 units Levothyroxine Sodium (Levothyroxine Sodium 100 Mcg Tablet) 100 mcg PO DAILYBB [facility] Stop: 09/18/23 06:29 Last Admin: 08/19/23 06:22 Dose: 100 mcg Miscellaneous (Remove Transderm-Scop Patch) 1 each N/A ONE ONE Stop: 08/21/23 06:01 Miscellaneous (Check Scopolamine Patch Placement) 1 each N/A QS [facility] Stop: 08/21/23 05:59 Last Admin: 08/19/23 09:00 Dose: 1 each Miscellaneous (Carbohydrates For Hypoglycemia ) 15 - 30 gm PO UD PRN PRN Reason: Hypoglycemia Protocol Stop: 09/17/23 19:57 Morphine Sulfate (Morphine Sulfate 4 Mg/Ml 1 Ml Carp\Vial) 4 mg IV Q3H PRN PRN Reason: Pain (6,7,8,9,10) Stop: 09/01/23 16:22 Morphine Sulfate (Morphine Sulfate 2 Mg/Ml Carp) 2 mg IV Q3H PRN PRN Reason: Pain (1,2,3,4,5) & Pre PT Stop: 09/01/23 16:22 Last Admin: 08/19/23 00:56 Dose: 2 mg Ondansetron HCl (Ondansetron Inj 2 Mg/Ml 2 Ml Vial) 4 mg IV Q4H PRN PRN Reason: Nausea And Vomiting Stop: 09/17/23 16:22 Last Admin: 08/18/23 19:17 Dose: 4 mg Oxycodone/Acetaminophen (Oxycodone/Acetaminophen 5mg/325mg Tab) 2 tab PO Q4H PRN PRN Reason: SEVERE Pain (7,8,9,10) Stop: 09/01/23 16:22 Last Admin: 08/19/23 09:45 Dose: 2 tab Oxycodone/Acetaminophen (Oxycodone/Acetaminophen 5mg/325mg Tab) 1 tab PO Q4H PRN PRN Reason: MODERATE Pain (4,5,6) & Pre PT Stop: 09/01/23 16:22 Last Admin: 08/19/23 05:42 Dose: 1 tab (1) Cancer of left breast Breast location: unspecified site of breast Estrogen receptor status: unspecified Patient sex: female Qualified Code(s): C50.912 - Malignant neoplasm of unspecified site of left female breast (2) Diabetes type 2, uncontrolled Glycemic state: with hyperglycemia Qualified Code(s): E11.65 - Type 2 diabetes mellitus with hyperglycemia (3) Hypothyroidism Hypothyroidism type: unspecified Qualified Code(s): E03.9 - Hypothyroidism, unspecified (4) Hypertension Hypertension type: primary hypertension Qualified Code(s): I10 - Essential (primary) hypertension
[2023-08-19] MEDS: ONDANSETRON INJ 2 MG/ML 2 ML VIAL IV PRN (18:45)
[2023-08-19] MEDS: ATORVASTATIN 40 MG TAB PO SCH (21:04)
[2023-08-19] MEDS: LOSARTAN/HCTZ 50/12.5MG TAB PO SCH (21:04)
[2023-08-20] MEDS: CHECK SCOPOLAMINE PATCH PLACEMENT SCH ×2 (00:06→08:12)
[2023-08-20] MEDS: oxyCODONE/ACETAMINOPHEN 5mg/325mg TAB PO PRN ×2 (05:37→09:33)
[2023-08-20] MEDS: LEVOTHYROXINE SODIUM 100 MCG TABLET PO SCH (05:37)
[2023-08-20] MEDS: ASPIRIN 81 MG ECTAB PO SCH (08:12)
[2023-08-20] MEDS: ATENOLOL 25 MG TABLET PO SCH (08:12)
[2023-08-20 08:21] LABS: Basophils # (auto) 0.05 K/uL (0.00-0.20); Basophils % (auto) 0.6 %; Eosinophils # (auto) 0.11 K/uL (0.00-0.50); Eosinophils % (auto) 1.3 %; Hematocrit (blood only) 31.5 % (37.0-47.0); Hemoglobin 10.2 g/dl (12.0-16.0); Immature Granulocytes # (auto) 0.03 K/uL (0.01-0.20); Immature Granulocytes % (auto) 0.3 %; Lymphocytes # (auto) 1.62 K/uL (1.20-3.40); Lymphocytes % (auto) 18.7 %; Mean Corpuscular Hemoglobin 28.9 pg (25.0-34.0); Mean Corpuscular Hgb Conc 32.4 g/dL (32.0-36.0); Mean Corpuscular Volume 89.2 fL (80.0-100.0); Mean Platelet Volume 10.9 fL (9.4-12.4); Monocytes # (auto) 0.68 K/uL (0.11-0.59); Monocytes % (auto) 7.9 %; Neutrophils # (auto) 6.16 K/uL (1.40-6.50); Neutrophils % (auto) 71.2 %; Platelet Count 251 K/uL (130-400); RDW Coefficient of Variation 14.2 % (11.5-14.5); RDW Standard Deviation 45.9 fL (36.4-46.3); Red Blood Count 3.53 M/uL (4.20-5.40); White Blood Count 8.65 K/ul (4.8-10.8)
[2023-08-20 08:46] LABS: Calcium 8.1 mg/dl (8.6-10.3); Magnesium 1.9 mg/dl (1.7-2.4); Potassium 4.1 mmol/L (3.5-5.1)
[2023-08-20 08:52] LABS: BUN Creatinine Ratio 21.7 (10-20); Creatinine Clr Calc Pharmacy 74.7 ml/min; Est GFR (African American) 105.9 ml/min; Est GFR (Non-African American) 91.4 ml/min; Phosphorus 2.5 mg/dl (2.5-4.9)
[2023-08-20] MEDS: INSULIN ASPART PER UNIT CHARGE SC SCH (08:52)
[2023-08-20] MEDS: LANTUS PER UNIT CHARGE SQ SCH (08:53)
--- NOTE | 2023-08-20 10:31 | Discharge Summary ---
Date of Service August 20, 2023 Admission HPI Per Admitting Provider Aixa is a 67 year-old female who presented to [facility] on Friday08[facility]18[facility]2023 for elective bilateral mastectomy with left sentinel lymph node biopsy for left breast cancer by Dr. Robi Geiger. Principal Diagnosis Left breast cancer Discharge Exam Constitutional WD/WN, vitals as above cooperative and comfortable; no acute distress and not ill appearing Respiratory normal respiratory effort; no respiratory distress, no labored breathing and no retractions Chest (Breasts) Additional Comments: Inspection of the dressings on chest wall are clean/dry/intact. incision not inspected. Drain with bloody serosanguineous output, more serosanguineous on left side. Skin no rashes, warm and dry Psychiatric A+Ox3, euthymic affect Discharge Data Allergies Allergy/AdvReac Type Severity Reaction Status Date / Time No Known Allergies Allergy Verified 08/18/23 09:02 Consultations 08/18/23 16:23 Consult Hospitalist Routine Procedures Performed Operation Date: 08/18/23 09:55 Actual Procedures p Bilateral Mastectomies with Left Axillary [place] Lymph Node Biopsy(Bilateral) - Robi Geiger MD Hospital Course (1) Cancer of left breast: Patient taken to operating room for bilateral mastectomy and left sentinel lymph node biopsy. Patient tolerated procedure without difficulty. Patient was transferred to recovery then to medical/surgical floor for postoperative care. Diet was advanced as tolerated. Pain management with po Percocet and IV morphin e as needed, IV antiemetics as needed, activity as tolerated, scds for dvt prophylaxis. POD # 1 pain was moderately increasing in morning and required IV morphine. One dose of IV Toradol was given which helped control pain. Patient then developed increasing pain in the evening on POD # 1 with diarrhea and some palpitations so she was kept overnight again for observation. POD # 2 avss, hemodynamically stable. Patients pain was better controlled in the morning and tolerating diet without any nausea or vomiting. She was discharged home on POD # 2 in stable condition. Total Time Total Time Spent Total Time Spent (In Minutes): 30 minutes Total Time Includes: Examination of the Patient, Discharge Planning and Medication Reconciliation Discharge Plan Discharge Items Patient Disposition: Home - Self-Care Reason For Visit: LEFT BREAST CANCER Discharge Diagnosis: Left breast cancer s/p bilateral mastectomy with left sentinel lymph node biopsy Activity: Per Instructions section Non-emergency contact: Primary Care Provider Call non-emergency contact if: you have any medication questions, your pain is not controlled, your pain is worsening, your pain is concerning for you, you have a fever, your temperature is above 101, your wound has increased redness, your wound has increased drainage and your wound pain has increased Follow-up/Referrals: Robi Geiger MD [Physician] - 08/28/23 10:15 am Favian Castellon, DO [Primary Care Provider] - Diet: Carb Consistent or DM2 Addtl Attending Provider Instructions: MEDICATIONS: Resume previous medications unless instructed otherwise by your surgeon. * Percocet 5/325 mg one tablet every 4 hours as needed for pain. * May take extra strength Tylenol as needed for mild to moderate pain. 500 mg every 6 hours as needed Avoid taking 3,00 mg of Tylenol in 24 hour period. Each tablet of Percocet has 325 mg of Tylenol in it SPECIAL CARE INSTRUCTIONS: * Wear bra day and night until seen in office. * Sponge bath around incision and drain sites. Try to keep area clean and dry. * Surgical glue will fall off on its own * you will go home with surgical drains, record output amount and color. Call office once this output becomes less than 30 cc in 24 hours period for 2 consecutive days. Call office if the output increases or there is a lot of bloody output. * Call the surgeon's office with any questions or concerns - (ex. temperature higher than 101 degrees F, excessive bleeding or pain). FOLLOW UP VISIT: If not already scheduled, please call the office for a follow-up appointment for next week at . Pending Studies at Discharge: Yes (pathology , will be reviewed at postop visit) Stand-Alone Forms: My [facility] [employer], Pain - Opioid Pain Management, Smoking Cessation Medications and DC Order Prescriptions: New oxycodone-acetaminophen [Percocet] 5-325 mg tablet 1 tab PO Q4H PRN (Reason: pain) Qty: 18 0RF Continued (DME) FreeStyle Precision Humza Strips strip See Dose Instructions .ROUTE .MEDSUPPLY Qty: 6 3RF Dose Instruction: As directed Rx Instructions: test 3 times daily as needed to calibrate meter (DME) FreeStyle Adán 14 Day [place] Misc See Dose Instructions .ROUTE .MEDSUPPLY Qty: 1 0RF Dose Instruction: As directed Rx Instructions: For use with FreeStyle Adán 14 Day Sensors (DME) FreeStyle Adán 14 Day Sensor Kit See Dose Instructions .ROUTE .MEDSUPPLY Qty: 7 3RF Dose Instruction: As directed Rx Instructions: For use with FreeStyle Adán 14 day [place] Device (DME) pen needle, diabetic [BD Ultra-Fine Kamala Pen Needle] 32 gauge x 5/32" needle See Dose Instructions .ROUTE .MEDSUPPLY Qty: 10 Rx Instructions: Inject insulin 4 times a day (DME) Ketostix strip See Dose Instructions .ROUTE .MEDSUPPLY Qty: 25 Rx Instructions: Test urine 2-3 times a day furosemide [Lasix] 20 mg tablet 20 mg PO .COMPLEX Patient Comments: 20 mg PO Twice a day prn for fluid accumulation or weight gain ; Rx Instructions: 20 mg PO Twice a day prn for fluid accumulation or weight gain ; Novolog FlexPen U-100 Insulin 100 unit/mL (3 mL) insulin pen 5 - 25 units SQ UD Patient Comments: 45 unit SQ Breakfast =5 and Lunch = 15 units, Dinner = 25 units plus sliding scale ; Rx Instructions: 5 units in am; 15 units lunch; 25 units at dinner ([facility]) lancets [OneTouch Delica Lancets] 33 gauge [facility] See Dose Instructions .ROUTE .MEDSUPPLY Qty: 100 Rx Instructions: Test blood sugars 2 times day ergocalciferol (vitamin D2) 50,000 unit capsule 50,000 units PO WEEKLY Qty: 14 Patient Comments: takes on Fridays alendronate 70 mg tablet 70 mg PO WK Patient Comments: takes on Fridays aspirin [Karrie Low Dose Aspirin] 81 mg Tablet,Delayed Release (Dr/Ec) 81 mg PO QAM levothyroxine 100 mcg tablet 100 mcg PO QAM Patient Comments: 100 mcg PO TAKE ON AN EMPTY STOMACH WITH A FULL GLASS OF WATER, WAIT 30 MINUTES TO EAT, DRINK, OR TAKE MEDICATIONS; Rx Instructions: 100 mcg PO TAKE ON AN EMPTY STOMACH WITH A FULL GLASS OF WATER, WAIT 30 MINUT ES TO EAT, DRINK, OR TAKE MEDICATIONS; atorvastatin 80 mg tablet 80 mg PO PM insulin glargine 100 unit/mL Solution 35 unit SUBCUT PM atenolol 25 mg Tablet 25 mg PO QAM losartan-hydrochlorothiazide 100-25 mg Tablet 1 tab PO PM Mounjaro 5 mg/0.5 mL Pen Injector 5 mg SUBCUT WK Patient Comments: takes on Fridays > last dose 08/08/23 Discharge Orders: Discharge Order (Routine); Ordered 08/20/23 Ordered By: Maria Teresa Paula/Other Patient Handouts: Managing Type 2 Diabetes, Mastectomy, Mastectomy: After Surgery Admission Data Admit Date/Time: 08/18/23 16:23 Attending Provider: Robi Geiger Admit Provider: Robi Geiger Primary Care Provider: Favian Castellon Other Providers: Brea Denny; Elke Klein I.; Aviva Tam; Cate Waite; Pita Cobb; Leatha Marie; Cony Dixon; Denver Joseph; Reza Shearer; Erwin Shaw; Clair Kelley; Vane Villegas; Carin Ryan; Arianna Roque; Valentin Grossman; Margarita Chambers; Lani Decker; Eleuterio Hay; Odette Gould I.; Ric Rivera; Charlotte Griffith; Frances Hebert; Mayco Anderson; Patrice Huitron; Anthony Fraga; Milan Wylie; Fanta Kirk; Jovita Fernandez Other Interventions: Discharge Summary Assessment (RN) Last Done: 08/19/23 16:19
--- OUTSIDE RECORDS SUMMARY | 2023-08-22 17:22 | External Medical Summary | Summary of Care ---
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 Encounter Details Date Type Department Care Team Description 07/23/2023 Office Visit General Surgery, [facility] [address] [place] [id number] Robi Geiger MD [address] [place] [id number] Pre-op examination*; Malignant neoplasm of overlapping sites of left female breast, unspecified estrogen receptor status (HCC) Allergies No known active allergiesdocumented as of this encounter (statuses as of 07/23/2023) Medications Medication Sig Dispensed Refills Start Date End Date Status B-D Ultrafine III, 5MM, Pen MISC Use daily with insulin pen 1 Box Dosing Unit 11 02/01/20 16 Active aspirin 81 MG chewable tabletIndications: DM type 2, 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 with food. 100 Tab 5 02/27/20 16 Active Insulin Pen Needle 31G X 5 MM Use with Lantus and Novolog 4 times a day. Can substitute for preferred brand Dx E11.9 400 Each 3 01/19/20 22 Active Furosemide 20 MG Oral Tablet (Lasix)Indications :Localized edema TAKE 1 TABLET BY MOUTH TWICE DAILY NEEDED FOR FEET SWELLING, FLUID ACCUMULATION, OR WEIGHT GAIN 180 Tablet 3 08/16/20 22 Active Atorvastatin Calcium 80 MG Oral Tablet (Lipitor) Take 1 tablet by mouth once daily 90 Tablet 1 09/30/20 22 Active Levothyroxine Sodium 100 MCG Oral TabletIndications: Acquired hypothyroidism TAKE 1 TABLET BY MOUTH IN THE MORNING 30 MIN PRIOR TO BREAKFAST OR OTHER MEDS 90 Tablet 2 10/12/20 22 Active Atenolol 25 MG Oral Tablet (Tenormin)Indicati ons:HTN, goal below 130/80 Take 1 Tablet by mouth in the morning. 90 Tablet 3 10/29/19 23 Active Vitamin D (Ergocalciferol) 1.25 MG (51752 UT) Oral Capsule (Drisdol) Take 1 capsule by mouth once a week 12 Capsule 0 11/28/19 23 Active Dexcom G7 Sensor Use to test blood sugar 3 Each 11 03/26/20 23 Active Losartan Potassium-HCTZ 100-25 MG Oral Tablet (Hyzaar)Indication s:HTN, goal below 130/80 Take 1 tablet by mouth once daily 90 Tablet 3 05/13/20 23 Active Semglee (yfgn) 100 UNIT/ML Subcutaneous Solution Pen-injector INJECT 35 UNITS SUBCUTANEOUSLY AT BEDTIME 0 03/14/20 23 Active Alendronate Sodium 70 MG Oral Tablet (Fosamax) Take 1 Tablet by mouth once a week. with 8 oz. water 30 minutes before first meal of the day. Remain upright for 30 min after taking tablet. 15 Tablet 5 05/13/20 23 Active NovoLOG FlexPen 100 UNIT/ML Subcutaneous Solution Pen-injector INJECT 5 UNITS SUBCUTANEOUSLY IN THE MORNING, 10 UNITS AT LUNCH, AND 20 UNITS AT SUPPER 15 mL 11 05/13/20 23 Active Trulicity 4.5 MG/0.5ML Subcutaneous Solution Pen-injector (Dulaglutide) Inject 1 pen once weekly 6 mL 3 06/30/20 23 Active Mounjaro 5 MG/0.5ML Subcutaneous Solution Pen-injector (Tirzepatide) Inject 5 mg under the skin once a week. 2 mL 11 07/17/20 23 024 Active Dexcom G6 Neurology Teacher Device Use as directed . Use to test blood sugar 1 Each 0 09/19/20 22 023 Discontinued documented as of this encounter (statuses as of 07/23/2023) Active Problems Problem Noted Date MDD (major depressive disorder), recurre nt episode, moderate 10/25/2021 Depression with anxiety 10/31/2020 Non compliance w medication regimen 02/2019 High risk for fracture due to osteoporos is by DEXA scan 10/02/2018 Type 2 diabetes mellitus with hemoglobin A1c goal of less than 8.0% 08/12/2017 HTN, goal below 130/80 12/18/2015 Overview: Per HTN Protocol #27. Dyslipidemia 09/27/2009 Overview: Per Lipid Taxonomy. 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 Mild LVH HTN, GOAL BELOW 140/80 06/01/2012 6 Overview: Per HTN Protocol #27. Dysfunction of eustachian tube 09/20/2011 0 10/31/2020 Acute suppurative otitis media 04/16/2011 0 07/10/2011 HTN, goal below 130/80 09/06/2009 2 DM type 2, not at goal 08/10/2009 7 Overview: Per Diabetes Taxonomy. Type 2 diabetes mellitus wit h hemoglobin A1c goal of less than 7.0% 12/02/2006 08/10/2009 Overview: Per Diabetes Taxonomy. ICD-10 update of inactive term ADVANCE DIRECTIVE INFORMATION 06/30/2006 Overview: Information gien to patient. Dyslipidemia, goal to be determined 12/20/2004 09/27/2009 Overview: Per Lipid Taxonomy. HTN, goal below 140/90 12/20/2004 9 FAMILY HX-BREAST MALIG 10/01/2001 1 Other otosclerosis 10/31/2020 documented as of this encounter (statuses as of 07/23/2023) Immunizations Name Administration Dates Next Due COVID-19 mRNA, LNP-s, No Pre serve, 2-Dose Series (Pfizer) 08/15/2021,01/23/2021,12/29/2020 Hepatitis B, 20+ yrs 06/29/2015,01/19/2015,01/19 Pneumococcal Conjugate Vacci ne, 20-valent ([id number]) 06/27/2022 Pneumococcal Polysaccharide PPV23 (Pneumovax) 02/10/2007 SEASONAL INFLUENZA, PF, 6 M & Above, IM , (FLULAVAL or FLUZONE) 10/13/2022,08/17/2020,09/14/2018 Season Influenza, Cell Culte r, 18+ Yrs, With Preserv (Flucelvax) 07/18/2017 Seasonal Influenza, Quadriva lent, No Preserve, Mdck 07/01/2019 Seasonal Influenza, Split, I IV3, With Preserve, Inj 07/01/2019,07/20/2015,08/13/2014,07/30,07/10/2011,07/05/2010,09/06/2009 ,08/20/2007 TD, Preservative Free 03/16/2019 TDAP (age 11 and older)(Adacel) 12/26/2008 Zoster Vaccine Recombinant (Shingrix) 04/23/2022 ,10/25/2021 documented as of this encounter Social History Tobacco Use Types Packs/Day Years Used Date Smoking Tobacco: Never Smokeless Tobacco: Never Alcohol Use Standard Drinks/Week Comments Yes 0 (1 standard drink = 0.6 oz pur e alcohol) rare Food Insecurity Answer Date Recorded Within the past 12 months, y ou worried that your food would run out before you got money to buy more. Never true 04/30/2023 Within the past 12 months, t he food you bought just didn't last and you didn't have money to get more. Never true 04/30/2023 Sex Assigned at Date Recorded Female 09/19/2020 8:[address] Job Start Date Occupation Industry Not on file Not on file Not on file documented as of this encounter Last Filed Vital Signs Vital Sign Reading Time Taken Comments Blood Pressure - - Pulse - - Temperature - - Respiratory Rate - - Oxygen Saturation - - Inhaled Oxygen Concentration - - Weight 77.7 kg (171 lb 3.2 oz) 07/23/2023 8:38 A M EDT Height - - Body Mass Index 33.72 07/08/2023 11:26 AM EDT documented in this encounter Progress Notes * Robi Geiger MD - 07/23/2023 2:13 PM EDT [facility] Chief Complaint Patient presents with Follow Up After MRI, enlarging mass of the left upper outer quadrant of her breast. REASON FOR CONSULTATION: Left breast mass HISTORY: Aixa Cruz is a 67 year old year old female who returns following ultrasound-guided needle biopsy of solid portion of large cystic lesion in her left breast. The pathology came back withfragments of adenocarcinoma, favoring breast primary. She denies any new complaints. She is now status post MRI, which demonstrated the large mass in the left breast as well as a satellite lesion. She has seen Dr. Zapata yesterday. BREAST HISTORY: Mass: Yes; left upper outer, duration 6 months to 1 year Breast Pain: no Nipple discharge: No Previous problems/surgeries: None Breast Cancer: no Other Cancers: no GYNECOLOGIC HISTORY: Menarche at age: 15 Menopause at age: Mid 50s Number of children: 1 Patient's age at first live : 37 Ever take oral contraceptives? Yes, history of use for 20 year(s) Ever take estrogen? No RADIOLOGIC INTERPRETATION: Result MAMMOGRAM DIAGNOSTIC JANET BILATERAL US BREAST LIMITED LEFT History Lump in upper outer quadrant of left breast Encounter for screening mammogram for breast cancer Family medical history includes breast cancer in mother (age of onset: 72). Films Compared 05/28/2022 MAMMOGRAM DIAGNOSTIC JANET LEFT, 05/28/2022 US BREAST LIMITED LEFT, 04/10/2022 MAMMOGRAM SCREENING JANET BILATERAL, and 04/10/2021 MAMMOGRAM SCREENING JANET BILATERAL Findings Left Patient presents with enlarging left breast upper outer quadrant mass. There is a visible contour bulge an easily palpable lump on my exam. MAMMOGRAM DIAGNOSTIC JANET BILATERAL The left breast is heterogeneously dense, which may obscure small masses. There is a 43 mm x 33 mm x 48 mm high density, oval mass with partly circumscribed/partly obscured margins seen in the upper outer quadrant of the left breast in the middle depth. US BREAST LIMITED LEFT The breast tissue has a heterogeneous background echotexture. There is an oval, parallel, complex cystic and solid mass with mostly circumscribed margins with posterior enhancement seen in the left breast at 2 o'clock, 2 cm from the nipple. The mass correlates with the palpable mass noted during physical examination. The mass correlates with the prior mammogram finding. This is mostly anechoic. Portions of the wall are thickened. There is a 4 x 4 mm avascular projection from the lateral wall. A thick septation is seen at the inferolateral margin. The massis otherwise anechoic. Further evaluation is recommended as this does not meet criteria for simple cyst. Ultrasound-guided core biopsy could be performed. The patient indicated that she would prefer to have it surgically excised rather than undergoing ultrasound core biopsy. No axillary lymphadenopathy is appreciated. Right MAMMOGRAM DIAGNOSTIC JANET BILATERAL There is no evidence of suspicious masses, calcifications, or other abnormal findings in the right breast. Impression Left MAMMOGRAM DIAGNOSTIC JANET BILATERAL: Left breast 43 mm x 33 mm x 48 mm mass at the upper outer middle position. Assessment: 4 - Suspicious finding. Surgical consultation/biopsy is recommended. US BREAST LIMITED LEFT: Left breast mass at the 2 o'clock position. Assessment: 4 - Suspicious finding. Surgical consultation/biopsy is recommended. Right MAMMOGRAM DIAGNOSTIC JANET BILATERAL No mammographic evidence of malignancy. BI-RADS Category: 4 - Suspicious. Recommendation Surgical consultation is recommended for the left breast for potential excision as desired by the patient. Resume annual screening mammography is recommended for the right breast. Result MRI BREAST BILATERAL W WO CONTRAST History Malignant neoplasm of overlapping sites of left female breast, unspecified estrogen receptor status(hcc). Recent diagnosis of adenocarcinoma of the left breast following ultrasound- guided biopsy of a suspicious complex cystic mass on 06/24/2023. Family medical history includes breast cancer in mother (age of onset: 72). Technique MR (magnetic resonance) imaging was performed utilizing multiple sequences. Following the intravenous administration of gadolinium, dynamic scanning was performed. Kinetic analysis was evaluated with[employer] software. Films Compared Mammogram and ultrasound dated 05/29/2023. Findings Left. The left breast has heterogeneous fibroglandular tissue. There is marked background parenchymal enhancement. The biopsy-proven malignancy, corresponds to a complex solid cystic mass with enhancement of the solid components and the thickened bet[place]ourt of the cystic component. It demonstrates mixed enhancement kinetics including washout. It measures approximately 4.2 x 4.0 x 4.2 cm (series 8, image 62 and series 18, image 128). Low suspicion enhancing foci are present inferior (series 8 image 70 and series 18, image 124 ) andanterior to the mass (series 8, image 63, and series 18, image 129). The anterior focus of enhancement is approximately 1 cm anterior to the biopsy-proven malignancy and approximately 1.6 cm from thenipple. The inferior foci of enhancement are approximately 1 cm from the biopsy-proven malignancy. Assuming the these foci of enhancement anterior and inferior to the malignancy represent additionaldisease, the total disease extent will measure 5.4 cm in the maximal nidia-posterior, and 4.5 cm in the maximal craniocaudal dimensions. There is no axillary or internal mammary lymphadenopathy. Right. The right breast has heterogeneous fibroglandular tissue. There is marked background parenchymal enhancement. No suspicious mass or nonmass enhancement is seen. There is no axillary or internal mammary lymphadenopathy. Impression The biopsy-proven malignancy corresponds to a mixed cystic/solid enhancing mass with mixed kineticsincluding washout in the upper outer and central left breast measuring approximately 4.2 x 4.0 x 4.2 cm. Low suspicion foci of enhancement are inferior and anterior to the biopsy-proven malignancy. If these represent additional disease, the total disease extent would measure 5.4 cm and 4.5 cm in the maximal anterior-posterior and craniocaudal dimensions respectively. No MRI evidence of malignancy in the right breast. No suspicious axillary or internal mammary lymphadenopathy. BI-RADS Category: 6 - Known Biopsy-Proven Malignancy. Recommendation Continued surgical follow-up regarding biopsy-proven malignancy in the left breast. If confirmation of anterior or inferior extent would alter management, the foci of enhancement anterior to the malignancy (series 8, image 63) and inferior to the malignancy (series 8, image 70) are amenable to MRI guided biopsy. MY INTERPRETATION: I have reviewed the films personally and concur with the read. FAMILY HISTORY: Family history of breast or ovarian cancer: Yes; and mother - postmenopausal unilateral Family history of other cancer: See below Family History Problem Relation Age of Onset Neurological Disorder Father seizures, hearing loss Hearing loss Father Heart Disorder Mother CABG age 72, lifelong tachycardias Hypertension Mother Diabetes Mother Arthritis Mother Breast Cancer Mother 72 Hearing loss Mother Heart Disorder Grandfather (Paternal) [place] Hearing loss Grandfather (Paternal) Stroke Grandmother (Maternal) Hearing loss Sister Hearing loss Brother Hearing loss Grandfather (Maternal) Asthma Son PAST MEDICAL HISTORY: Past Medical History: Diagnosis Date Depression with anxiety 10/31/2020 Dyslipidemia, goal to be determined Essential and other specified forms of tremor essential tremor High risk for fracture due to osteoporosis by DEXA scan 10/02/2018 HTN, goal below 140/90 Non compliance w medication regimen 09/16/2019 PAST SURGICAL HISTORY: Past Surgical History: Procedure Laterality Date COLONOSCOPY, DIAGNOSTIC (RECTUM) 02/11/2011 diverticulosis, repeat in 5 years COLONOSCOPY, DIAGNOSTIC (RECTUM) 02/13/2016 adenomatous polyp, repeat 3 yrs/COLONOSCOPY FLEXIBLE PROXIMAL DIAGNOSTIC performed by Silvestre Max MD at ENDOSCOPY [facility] COLONOSCOPY, DIAGNOSTIC (RECTUM) 07/20/2019 biopsies show adenomatous polyps/recall 3 years/COLONOSCOPY FLEXIBLE PROXIMAL DIAGNOSTIC performed by Sudhakar Martell MD at ENDOSCOPY [facility] COLONOSCOPY, DIAGNOSTIC (RECTUM) 08/23/2022 benign adenomatous polyp, diverticulosis, repeat 3 yrs / COLONOSCOPY FLEXIBLE PROXIMAL DIAGNOSTIC performed by Sudhakar Martell MD at ENDOSCOPY [facility] INJECT DX/THER SUBSTANCE INTERLAMINAR LUMBAR/SACRAL W IMAGE GUIDE 11/05/2021 INJECTION SPINE LUMBAR OR SACRAL performed by Raimundo An DO at OR [facility] INJECT DX/THER SUBSTANCE INTERLAMINAR LUMBAR/SACRAL W IMAGE GUIDE 03/20/2022 INJECTION SPINE LUMBAR OR SACRAL performed by Raimundo An DO at OR [facility] INJECT DX/THER SUBSTANCE INTERLAMINAR LUMBAR/SACRAL W IMAGE GUIDE 11/13/2022 INJECTION SPINE LUMBAR OR SACRAL performed by Raimundo An DO at OR [facility] INJECT DX/THER SUBSTANCE INTERLAMINAR LUMBAR/SACRAL W IMAGE GUIDE 05/14/2023 INJECTION SPINE LUMBAR OR SACRAL performed by Raimundo An DO at OR [facility] PATIENT EDU, LAP-BAND SURGERY REMOVE CATARACT, INSERT LENS PROSTH Left 04/30/2018 left EXTRACAPSULAR CATARACT REMOVAL WITH INTRAOCULAR LENS performed by Martin Donnelly MD at OR [facility] REMOVE CATARACT, INSERT LENS PROSTH Right 05/12/2018 right EXTRACAPSULAR CATARACT REMOVAL WITH INTRAOCULAR LENS performed by Martin Donnelly MD at OR [facility] REMOVE TONSILS & ADENOIDS, UNDER 12 REVISION OF MIDDLE EAR BONE Dr. Allred US GUIDED BREAST BIOPSY LEFT Left 06/24/2023 ALLERGIES: Allergies as of 07/23/2023 (No Known Allergies) MEDICATIONS: Current Outpatient Medications Medication Sig Dispense Refill B-D Ultrafine III, 5MM, Pen MISC Use daily with insulin pen 1 Box Dosing Unit 11 aspirin 81 MG chewable tablet Take 1 Tab by mouth daily. with food. 100 Tab 5 Insulin Pen Needle 31G X 5 MM Use with Lantus and Novolog 4 times a day. Can substitute for preferred brand Dx E11.9 400 Each 3 Furosemide 20 MG Oral Tablet (Lasix) TAKE 1 TABLET BY MOUTH TWICE DAILY NEEDED FOR FEET SWELLING, FLUID ACCUMULATION, OR WEIGHT GAIN 180 Tablet 3 Atorvastatin Calcium 80 MG Oral Tablet (Lipitor) Take 1 tablet by mouth once daily 90 Tablet 1 Levothyroxine Sodium 100 MCG Oral Tablet TAKE 1 TABLET BY MOUTH IN THE MORNING 30 MIN PRIOR TO BREAKFAST OR OTHER MEDS 90 Tablet 2 Atenolol 25 MG Oral Tablet (Tenormin) Take 1 Tablet by mouth in the morning. 90 Tablet 3 Vitamin D (Ergocalciferol) 1.25 MG (21059 UT) Oral Capsule (Drisdol) Take 1 capsule by mouth once aweek 12 Capsule 0 Dexcom G7 Sensor Use to test blood sugar 3 Each 11 Losartan Potassium-HCTZ 100-25 MG Oral Tablet (Hyzaar) Take 1 tablet by mouth once daily 90 Tablet 3 Semglee (yfgn) 100 UNIT/ML Subcutaneous Solution Pen-injector INJECT 35 UNITS SUBCUTANEOUSLY AT BEDTIME Alendronate Sodium 70 MG Oral Tablet (Fosamax) Take 1 Tablet by mouth once a week. with 8 oz. water30 minutes before first meal of the day. Remain upright for 30 min after taking tablet. 15 Tablet 5 NovoLOG FlexPen 100 UNIT/ML Subcutaneous Solution Pen-injector INJECT 5 UNITS SUBCUTANEOUSLY IN THEMORNING, 10 UNITS AT LUNCH, AND 20 UNITS AT SUPPER 15 mL 11 Trulicity 4.5 MG/0.5ML Subcutaneous Solution Pen-injector (Dulaglutide) Inject 1 pen once weekly 6 mL 3 Mounjaro 5 MG/0.5ML Subcutaneous Solution Pen-injector (Tirzepatide) Inject 5 mg under the skin once a week. 2 mL 11 No current facility-administered medications for this visit. SOCIAL HISTORY: Social History Socioeconomic History Marital status: Spouse name: Not on file Number of children: Not on file Years of education: Not on file Highest education level: Not on file Occupational History Occupation: unemployed Tobacco Use Smoking status: Never Smokeless tobacco: Never Vaping Use Vaping Use: Never used Substance and Sexual Activity Alcohol use: Yes Comment: rare Drug use: No Sexual activity: Not Currently Partners: Male Other Topics Concern Not on file Social History Narrative Not on file Social Determinants of Health Financial Resource Strain: Not on file Food Insecurity: No Food Insecurity Worried About Running Out of Food in the Last Year: Never true Ran Out of Food in the Last Year: Never true Transportation Needs: Not on file Physical Activity: Not on file Stress: Not on file Social Connections: Not on file Intimate Partner Violence: Not on file Housing Stability: Not on file ROS: GEN: no weight loss, fever, fatigue HEENT: no changes in vision or hearing, no sinus problems, no sore throat, no hoarseness RESPIRATORY: no cough, wheezing, SOB or change in breathing CARDIOVASCULAR: no exertional chest pain, dyspnea, palpitations GI: no melena or hemetemeis, no change in bowel habits : no dysuria, hematuria, frequency MUSCULOSKELETAL: no change in joint pains, no new arthritis PSYCHIATRIC: no significant anxiety or depression, unchanged sleep pattern HEME: no bleeding tendency, no clotting tendency NEURO: no significant headache, no seizures , no tremors SKIN: no new rashes, no itching PHYSICAL EXAM: Weight 77.7 kg (171 lb 3.2 oz), last menstrual period 03/13/2011. Constitutional: alert, healthy, well nourished Head: normocephalic, atraumatic Eyes: conjunctiva non-injected, sclera white Extremities: no edema, no skin discoloration Neuro: alert, gait normal, motor normal Skin: no obvious rashes or significant lesions ASSESSMENT: 67-year-old woman with enlarging mass of the left upper outer quadrant of her breast. Biopsy demonstrates adenocarcinoma. PLAN: I had a long discussion with her concerning the MRI findings. We went over the biopsy findings as well as the other imaging. I presented mastectomy versus breast conservation therapy. In this situation, breast conservation therapy would be incredibly difficult in terms of conserving a decent cosmetic outcome. She is leaning towards bilateral mastectomy. We did discuss mastectomy in detail including risks, benefits, postoperative course and restrictions. I discussed contralateral mastectomy with her as well. We discussed that the overall absolute risk reduction for breast cancer is smallwith contralateral risk reduction mastectomy. After discussion with multiple questions that were ans wered to her satisfaction, she would like to proceed with bilateral mastectomy with left sentinel lymph node biopsy. Consent has been obtained, and we will proceed with bilateral mastectomy with left sentinel lymph node biopsy at the hospital at the earliest convenience. I spent a total of 40-54 minutes (exact time 45 mins) on the date of service in preparation, delivery, and documentation of the care provided to Aixa Cruz excluding any time spent in the performance of separately billed services. Robi Geiger MD 07/02/2023 documented in this encounter Procedure Notes * Madi Garsia DO - 07/23/2023 8:40 AM EDTAssociated Order(s): EKG REASON FOR STUDY: pre op CONCLUSIONS: Normal sinus rhythm Normal ECG No previous ECGs available Ventricular Rate: 62 Atrial Rate: 62 ME Interval: 130 QRS Duration: 86 QT/QTc: 404/410 ms P-R-T [place]: 53 : 53 : 36 degrees documented in this encounter Nursing Notes * Marianna Hernandez LPN - 07/23/2023 10:36 AM EDT Patient scheduled at [facility] for bilateral mastectomy with Dr Robi Geiger. Date of Test: tbs Medications reviewed. EKG not obtained, needs one but was not given, will call her to go to [facility] Labs: obtained Permit signed. Patient verbalizes understanding of pre- and post op instructions. Written instructions given for review at later date. Marianna Hernandez LPN 07/23/2023 * ANYI Ward - 07/23/2023 8:38 AM EDT Chief Complaint Patient presents with Follow Up After MRI, enlarging mass of the left upper outer quadrant of her breast. Verified patient. No pain. Patient is here after MRI. documented in this encounter Plan of Treatment Upcoming Encounters Date Type Specialty Care Team Description 09/01/2023 Office Visit Hematology Oncology Eleuterio Zapata MD [address] [facility] [place] [address] 09/03/2023 Office Visit General Surgery Robi Geiger MD [address] [place] [id number] 09/24/2023 Office Visit Pharmacy [facility] [address] [place] [id number] 10/29/2023 Imaging Radiology 10/29/2023 Imaging Radiology 12/19/2023 Telemedicine Hematology Oncology Alisson Waters, MS [address] [place] [address] 01/20/2024 Office Visit Family Medicine Favian Castellon DO [address] [place] [id number] 01/26/2024 Office Visit Neurology Sommer Che PA-C [address] [facility] [place], [place] [address] Scheduled Procedures Name Priority Associated Diagnoses Date/Ti me COLONOSCOPY FLEXIBLE PROXIMAL DIAGNOSTIC Recall History of colon polyps Health Maintenance Due Date Last Done Comments DIABETES-EYE EXAM 05/31/2023 05/31/2022, , 08/11/2020, Additional history exists COVID-19 Vaccine ( season) 2023 08/15/2021, 01/23/2021, 12/29/2020 Influenza Vaccine (FLU shot) (#1) 2023 10/13/2022, 08/17/2020, 07/01/2019, Additional history exists Depression Screening 10/29/2023 10/29/2022 HbA1c 12/23/2023 06/24/2023, 03/13, 01/07/2023, Additional history exists Albumin/Creatinine Ratio 01/08/2024 023, 06/26/2022, 01/02/2022, Additional history exists TSH 01/08/2024 01/07/2023, 06/13, 07/03/2021, Additional history exists Diabetic Foot Exam 05/13/2024 05/13/2023, 0 04/23/2022, 04/24/2021, Additional history exists GFR 05/13/2024 05/13/2023, 12/12, 06/26/2022, Additional history exists Mammogram 05/29/2024 05/29/2023, 05/13, 04/10/2022, Additional history exists DXA Scan 12/18/2024 12/18/2022, 10/02/2018 COLONOSCOPY-EVERY 3 YRS AGES 18-100 08/23/2025 08/23/2022, 08/23/2022, 07/20/2019, Additional history exists Lipid Panel 01/08/2028 01/07/2023, 06/13, 01/02/2022, Additional history exists DTaP,Tdap,and Td Vaccines (3 - Td or Tdap) 03/16/2029 03/16/2019, 12/26/2008 Hepatitis B Completed 06/29/2015, 0 06/2015, 01/19/2014 Pap Smear Discontinued 09/19/2020, 10/2016, 09/25/2012, Additional history exists Zoster Vaccines Completed 04/23/2022, 10/25/2021 Pneumococcal Vaccine: 65+ Years Completed 06/27/2022, 02/10/2007 VITAMIN D LEVEL ONCE IN A LIFETIME-USE SMARTSET# 43361 Completed 02/14/2023, 09/15/2019, 01/21/2019, Additional history exists GARDASIL-HPV IMMUNIZATION SERIES Aged Out No longer eligible based on patient's age to complete this topic HIV Screening Discontinued MENINGOCOCCAL (MENACTRA/MENVEO) Aged Out No longer eligible based on patient's age to complete this topic documented as of this encounter Medical Devices Implanted Type Area Heavy Duty Diesel Mechanic Device Identifier Shelf Expiration Date Model / Serial / Lot Lens 24.0 Mx60e - [id number] - [id number] Implanted:Qty: 1 on 04/30/2018 by Martin Donnelly MD at OR [facility] Left: Eye [employer] LOMB 01/10/2021 [id number]-25.0 / [id number] / [id number] +23.0d Implanted:Qty: 1 on 05/12/2018 by Martin Donnelly MD at OR [facility] Right: Eye 07/12/2020 [id number] / [id number] / [id number] Duraclip 16mm Xlg Repostn - [id number] Implanted:Qty: 2 on 08/23/2022 by Sudhakar Martell MD at ENDOSCOPY [facility] CONMED JESSICA 11/28/2023 [id number] / / documented as of this encounter Procedures Procedure Name Priority Date/Time Associated Diagnosis Comments ME ECG ROUTINE ECG W/LEAST 12 LDS I&R ONLY Routine 07/23/2023 8:40 AM EDT Pre-op examination documented in this encounter Results * CBC (07/23/2023 10:02 AM EDT) WBC 8.32 4.00 - 10.80 K/uL 07/23/2023 10:12 AM EDT LABORATORY [facility] 57-10 RBC 4.52 3.85 - 5.15 M/uL 07/23/2023 10:12 AM EDT LABORATORY [place] 57-10 HGB 13.5 12.0 - 15.3 g/dL 07/23/2023 10:12 AM EDT LABORATORY [facility] [place] 57-10 HCT 41.7 36.0 - 45.2 % 07/23/2023 10:12 AM EDT LABORATORY [facility] 57-10 MCV 92.3 81.5 - 97.5 fL 07/23/2023 10:12 AM EDT LABORATORY [facility] 57-10 MCH 29.9 27.0 - 34.0 pg 07/23/2023 10:12 AM EDT LABORATORY [facility] 57-10 MCHC 32.4 32.0 - 36.0 g/dL 07/23/2023 10:12 AM EDT LABORATORY [facility] [place] 57-10 RDW 14.1 11.5 - 15.5 % 07/23/2023 10:12 AM EDT LABORATORY [facility] 57-10 PLT 260 140 - 400 K/uL 07/23/2023 10:12 AM EDT LABORATORY [facility] 57-10 MPV 10.7 6.6 - 11.1 fL 07/23/2023 10:12 AM EDT LABORATORY [facility] 57-10 Blood Venous blood specimen / Unknown Venipuncture / Unknown 07/23/2023 10:02 AM EDT 07/23/2023 10:02 AM EDT Robi Geiger MD LAB BLOOD ORDER MIN LABORATORY [facility] [place] 57-10 [address] [place] [address] * EKG (07/23/2023 8:40 AM EDT) 07/23/2023 8:40 AM EDT Procedure Note Madi Garsia, DO - 07/23/2023 8:40 AM EDT REASON FOR STUDY: pre op CONCLUSIONS: Normal sinus rhythm Normal ECG No previous ECGs available Ventricular Rate: 62 Atrial Rate: 62 ME Interval: 130 QRS Duration: 86 QT/QTc: 404/410 ms P-R-T [place]: 53 : 53 : 36 degrees Robi Geiger MD EKG [facility] documented in this encounter Visit Diagnoses Diagnosis Pre-op examination- Primary Preoperative examination, unspecified Malignant neoplasm of overlapping sites of left female breast, unspecified estrogen receptor status (HCC) documented in this encounter Advance Directives Latest Code Status on File Code Status Date Activated Date Inactivated Comments Full Code 05/12/2018 7:34 AM 05/12/2018 1:41 PM This order reflects the patients wishes and were consensually agreed upon. Code Status History Code Status Date Activated Date Inactivated Comments Full Code 04/30/2018 7:25 AM 04/30/2018 1:27 PM This order reflects the patients wishes and were consensually agreed upon. Care Teams Handhole Machine Operator Relationship Specialty Start Date End Date Favian Castellon DO [address] [place] [address] PCP - General Family Medicine 11/05/19 documented as of this encounter
--- OUTSIDE RECORDS SUMMARY | 2023-08-22 17:22 | External Medical Summary | Summary of Care ---
Author Name Unknown Organization [facility] Address [address] [facility] [place] [address] Phone [phone] Care Team Providers Care Outside Barrel Lathe Operator Name Role Phone Favian Castellon Primary Care Provider Reason for Referral * Precert (Within 10 days (routine)) - Pending Review Specialty Diagnoses / Procedures Referred By Suellen mercer Referred To Contact Radiology Diagnoses Tremor Procedures NM BRAIN SPECT WITH Sommer Grubbs PA-C [address] [facility] [place] [address] Referral ID Status Reason Start Date Expiration Date V isits Requested Visits Authorized [id number] Pending Review 07/30/2023 999 999 Reason for Visit * Reason Comments Return Neuro Tremor Encounter Details Date Type Department Care Team Description 07/23/2023 Office Visit Neurology State Fariha Callahan [address] [facility] [place] [address] Sommer Che PA-C [address] [facility] [place] [address] Tremor* Allergies No known active allergiesdocumented as of [...] 23 Active Vitamin D (Ergocalciferol) 1.25 MG (62393 UT) Oral Capsule (Drisdol) Take 1 capsule by mouth once a week 12 Capsule 0 11/28/19 23 Active Dexcom G7 Sensor Use to test blood sugar 3 Each 03/26/20 23 Active Losartan Potassium-HCTZ 100-25 MG [...] 11 07/17/20 23 024 Active Dexcom G6 Trucking Contractor Device Use as directed . Use to [...] mRNA, LNP-s, No Pre serve, 2-Dose Series ([employer]) 08/15/2021,01/23/2021,12/29/2020 Hepatitis B, 20+ yrs 06/29/2015,01/19/2015,01/19 Pneumococcal Conjugate Vacci ne, 20-valent ([id number]) 06/27/2022 Pneumococcal Polysaccharide PPV23 (Pneumovax) 02/10/2007 SEASONAL [...] Sign Reading Time Taken Comments Blood Pressure 132/80 07/23/2023 10:31 AM EDT Pulse 61 07/23/2023 10:31 AM EDT Temperature 36.4 C (97.5 F) 07/23/2023 10:31 AM E DT Respiratory Rate 16 07/23/2023 10:31 AM EDT Oxygen Saturation - - Inhaled Oxygen Concentration - - Weight 77.6 kg (171 lb) 07/23/2023 10:31 AM EDT Height - - Body Mass Index 33.68 07/08/2023 11:26 AM EDT documented in this encounter Progress Notes * Sommer Che PA-C - 07/23/2023 10:32 AM EDT HISTORY & PHYSICAL EXAMINATION - NEUROLOGY Name: Aixa Cruz Date: 07/23/2023 Time: 10:32 AM Referring Provider: Sommer Che, * Chief Complaint: Chief Complaint Patient presents with Return Neuro Tremor This is a 67 year old right handed woman returns today for follow up for tremor. HPI & Source of HPI The patient was the historian, and she is reliable. She started to have a tremor over 10 years ago predominantly her head but some in her hands with writing. It has been getting a bit worse but not interfering with her ADLs. The head tremor is intermittent and the hand tremor is not as often more with writing at this point. There are 3 siblings of her fathers that have parkinson's and she was concerns that is what she is developing. She does not smoke, minimal EtOH use, modest caffeine use, no other drugs. No change in medications has been on Effexor for about 3 years. She is doing well and would not want to start a medication at this point. It is getting worse but still not interrupting her ADL. Stress brings out the tremor. She did have a fall going up stairs shewas carrying a lot and missed a step, she did not hit her head. She was recently diagnosed with breast CA which she is having a double mastectomy. She still thinksshe has parkinson's because of the strong family history. The tremor is getting worse. CP, SOB, abdominal pain, one sided weakness, numbness tingling N, V, new bowel or bladder issues. I have reviewed the patient's medications and allergies, past medical, surgical, social and family history, updating these as appropriate. See Histories section of the electronic medical record for adisplay of this information. Patient Active Problem List Diagnosis Code Acquired hypothyroidism E03.9 Bariatric surgery status Z98.84 Dyslipidemia E78.5 HTN, goal below 130/80 I10 Type 2 diabetes mellitus with hemoglobin A1c goal of less than 8.0% (HCC) E11.9 High risk for fracture due to osteoporosis by DEXA scan M81.0 Non compliance w medication regimen Z91.148 Depression with anxiety F41.8 MDD (major depressive disorder), recurrent episode, moderate (HCC) F33.1 Family History Problem Relation Age of Onset Neurological Disorder Father seizures, hearing loss Hearing loss Father Heart Disorder Mother CABG age 72, lifelong tachycardias Hypertension Mother Diabetes Mother Arthritis Mother Breast Cancer Mother 72 Hearing loss Mother Heart Disorder Grandfather (Paternal) CA Hearing loss Grandfather (Paternal) Stroke Grandmother (Maternal) Hearing loss Sister Hearing loss Brother Hearing loss Grandfather (Maternal) Asthma Son Medications: Are you taking your medications? yes Current Outpatient Medications Medication Sig Dispense Refill [...] Tablet 3 Vitamin D (Ergocalciferol) 1.25 MG (94865 UT) Oral Capsule (Drisdol) Take 1 capsule [...] No current facility-administered medications for this visit. Review of patient's allergies indicates: No Known Allergies Review of Systems: A total number of 10 systems were reviewed pertinent negative and positives not addressed in HPI are listed in the following review. Physical Exam: Constitutional: BP 132/80 | Pulse 61 | Temp 36.4 C (97.5 F) (Tympanic) | Resp 16 | Wt 77.6 kg (171 lb) | LMP 03/13/2011 | BMI 33.68 kg/m | BSA 1.81 m , appearance nourished, healthy, and normal Ears, Nose, Mouth and Throat: mucous membranes moist, no injection and skin normal, eyes normal Cardiovascular: normal S-1 and S-2 and regular rate and rhythm Respiratory: clear to auscultation (CTA) and no rales, ronchi or wheeze Musculoskeletal: no peripheral edema Skin: normal and intact Eyes: extraocular muscles intact (EOMI), normal eye blink frequency NEUROLOGIC EXAMINATION: Mental status: Alert and interactive Oriented to full date and location Oriented to person Speech fluent with no evidence of aphasia Cranial Nerves Normal findings for Cranial Nerves II - XII Coordination: rapid alternating movements are intact: Bilateral and on [id number], fine reaching tremor no resting tremor no cogwheeling. Gait/Stance: Posture normal. Gait tandem gait steady bilateral arm swing Motor: Negative for pronator drift of out stretched arms with eyes closed. Strength: Normal - 5/5 all extremities LABORATORY: Recent labs reviewed Review of prior Studies: No recent imaging available. Impression: Aixa Cruz is a 67 year old woman with a history of tremor. Her neurologic examination today reveals no new focal deficit. The history and examination are suggestive of diagnosis/problem list. Testing and Referrals ordered: JG scan ICD-10-CM 1. Tremor R25.1 Return in 6 months or sooner if needed JG scan order to confirm or refute parkinsonism- will wait until after her breast surgery to have done Tremor is mild at this point would not treat PCP for medical management Call with questions concerns. Medical Decision Making (determined by lowest of 2 of 3 elements): The medical decision making element of the number and complexity of problems addressed included at least 1 or more chronic illnesses with exacerbation, progression, or side effects of treatment (level 4). The medical decision making element of risk of complications, morbidity, and mortality of patient management is moderate (level 4) due to prescription drug management (moderate risk). The medical decision making element of the amount and complexity of data reviewed and analyzed included an independent interpretation of a test (level 4 at least). When 2 of 3 reach level 4, then this element is considered extensive (level 5). I personally spent a total of 30 minutes. This time was for a new office or established visit and was on the same calendar day. Education / Consultation - Topics covered as I spent 20 minutes, which is greater than 50% of this visit, counseling the patient on: Diagnostic Results Prognosis Importance of compliance with chosen treatment options Risk factor reductions Patient and family education Consulted with physician: Jovanny Avila DO was available for direct supervision. Copy of note sent to PCP and Referring Provider. Total time of visit: 30 minutes. Sommer Che PA-C Neurology [facility] [place] [address] [facility] [place] [address] 07/23/2023 10:32 AM documented in this encounter Nursing Notes * ANYI Juarez - 07/23/2023 10:31 AM EDT Chief Complaint Patient presents with Return Neuro Tremor documented in this encounter Plan of Treatment Upcoming Encounters Date Type Specialty Care Team Description 09/01/2023 Office Visit Hematology Oncology Eleuterio Zapata MD [address] [place] [address] 09/03/2023 Office Visit General Surgery Robi Geiger MD [address] [place] [address] 09/24/2023 Office Visit Pharmacy [facility] [address] [place] [address] 12/19/2023 Telemedicine Hematology Oncology Alisson Waters, MS [address] [place] [address] 01/20/2024 Office Visit Family Medicine Favian Castellon DO [address] [place] [address] 01/26/2024 Office Visit Neurology Sommer Che PA-C [address] [place] [address] Scheduled Orders Name Type Priority Associated Diagnoses Orde r Schedule NM BRAIN SPECT WITH DATSCAN Medical Imaging Routine Tremor Expected: 07/30/2023, Expires: 08/23/2024 Scheduled Procedures Name Priority Associated Diagnoses Date/Ti [...] 03/16/2029 03/16/2019, 12/26/2008 Hepatitis B Completed 06/29/2015, 04/0 06/2015, 01/19/2014 Pap Smear Discontinued 09/19/2020, 06/0 10/2016, 09/25/2012, Additional history exists Zoster Vaccines Completed 04/23/2022, 10/25/2021 Pneumococcal Vaccine: 65+ Years Completed 06/27/2022, 02/10/2007 VITAMIN D LEVEL ONCE IN A LIFETIME-USE SMARTSET# [id number] Completed 02/14/2023, 09/15/2019, 01/21/2019, Additional history exists GARDASIL-HPV IMMUNIZATION SERIES Aged Out No longer eligible based on patient's age to complete this topic HIV Screening Discontinued MENINGOCOCCAL (MENACTRA/MENVEO) Aged Out No longer eligible based on patient's age to complete this topic documented as of this encounter Medical Devices Implanted Type Area Whipper Beater Device Identifier Shelf Expiration Date Model / Serial / Lot Lens 24.0 Mx60e - [id number] - [id number] Implanted:Qty: 1 on 04/30/2018 by Martin Donnelly MD at OR [facility] Left: Eye [employer]CH [employer] LOMB 01/10/2021 [id number]-22.0 / [id number] / [id number] Mx60 +23.0d Implanted:Qty: 1 on 05/12/2018 by Martin Donnelly MD at OR [facility] Right: Eye 07/12/2020 EQ7432.0 / [id number] / [id number] Duraclip 16mm Xlg Repostn - [id number] Implanted:Qty: 2 on 08/23/2022 by Sudhakar Martell MD at ENDOSCOPY [facility] CONMED JESSICA 11/28/2023 [id number] / / documented as of this encounter Visit Diagnoses Diagnosis Tremor- Primary Abnormal involuntary movements documented in this encounter Advance Directives Latest [...] and were consensually agreed upon. Care Teams Outside Barrel Lathe Operator Relationship Specialty Start Date End Date Favian Castellon DO [address] [place] [address] PCP - General Family Medicine 11/05/19 documented as of this encounter"
--- OUTSIDE RECORDS SUMMARY | 2023-08-22 17:22 | External Medical Summary | Summary of Care ---
Author Name Unknown Organization [facility] Address [address] [facility] [place] [address] Phone [phone] Care Team Providers Care Water Supply Technician Name Role Phone Favian Castellon Primary Care Provider Reason for Visit * Reason Onset Date Comments Appointment 07/23/2023 Nuclear Med Encounter Details Date Type Department Care Team Description 07/23/2023 Telephone Neurology [facility] [place] [address] [place] [address] Sommer Che PA-C [address] [place] [address] Appointment (Nuclear Med) Allergies No known active allergiesdocumented as of this encounter (statuses as of 07/23/2023) Medications Medication Sig Dispensed Refills Start Date End Date Status B-D Ultrafine III, 5MM, Pen MISC Use daily with insulin pen 1 Box Dosing Unit 11 02/01/2016 Active aspirin 81 MG chewable tabletIndications:D M type 2, 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 with food. 100 Tab 5 02/27/2016 Active Insulin Pen Needle 31G X 5 MM Use with Lantus and Novolog 4 times a day. Can substitute for preferred brand Dx E11.9 400 Each 3 01/18/2022 Active Furosemide 20 MG Oral Tablet (Lasix)Indications: Localized edema TAKE 1 TABLET BY MOUTH TWICE DAILY NEEDED FOR FEET SWELLING, FLUID ACCUMULATION, OR WEIGHT GAIN 180 Tablet 3 08/16/2022 Active Atorvastatin Calcium 80 MG Oral Tablet (Lipitor) Take 1 tablet by mouth once daily 90 Tablet 1 09/30/2022 Active Levothyroxine Sodium 100 MCG Oral TabletIndications:A cquired hypothyroidism TAKE 1 TABLET BY MOUTH IN THE MORNING 30 MIN PRIOR TO BREAKFAST OR OTHER MEDS 90 Tablet 2 10/12/2022 Active Atenolol 25 MG Oral Tablet (Tenormin)Indicatio ns:HTN, goal below 130/80 Take 1 Tablet by mouth in the morning. 90 Tablet 3 10/29/2022 Active Vitamin D (Ergocalciferol) 1.25 MG (40055 UT) Oral Capsule (Drisdol) Take 1 capsule by mouth once a week 12 Capsule 0 11/28/2022 Active Dexcom G7 Sensor Use to test blood sugar 3 Each 11 03/26/2023 Active Losartan Potassium-HCTZ 100-25 MG Oral Tablet (Hyzaar)Indications :HTN, goal below 130/80 Take 1 tablet by mouth once daily 90 Tablet 3 05/13/2023 Active Semglee (yfgn) 100 UNIT/ML Subcutaneous Solution Pen-injector INJECT 35 UNITS SUBCUTANEOUSLY AT BEDTIME 0 03/14/2023 Active Alendronate Sodium 70 MG Oral Tablet (Fosamax) Take 1 Tablet by mouth once a week. with 8 oz. water 30 minutes before first meal of the day. Remain upright for 30 min after taking tablet. 15 Tablet 5 05/13/2023 Active NovoLOG FlexPen 100 UNIT/ML Subcutaneous Solution Pen-injector INJECT 5 UNITS SUBCUTANEOUSLY IN THE MORNING, 10 UNITS AT LUNCH, AND 20 UNITS AT SUPPER 15 mL 11 05/13/2023 Active Trulicity 4.5 MG/0.5ML Subcutaneous Solution Pen-injector (Dulaglutide) Inject 1 pen once weekly 6 mL 3 06/30/2023 Active Mounjaro 5 MG/0.5ML Subcutaneous Solution Pen-injector (Tirzepatide) Inject 5 mg under the skin once a week. 2 mL 11 07/17/2023 07/16/20 24 Active documented as of this encounter (statuses as [...] yrs 06/29/2015,01/19/2015,01/19 Pneumococcal Conjugate Vacci ne, 20-valent ([id number]) 06/27/2022 Pneumococcal Polysaccharide PPV23 (Pneumovax) 02/10/2007 SEASONAL [...] on file documented as of this encounter Miscellaneous Notes * Telephone Encounter - Marianna Hernandez LPN - 07/23/2023 10:47 AM EDT Please schedule patient for EKG either here or [place] office. It was ordered but not given * Telephone Encounter - DONAVAN Norris - 07/23/2023 10:45 AM EDT Please call pt to schedule a nuc med datscan documented in this encounter Plan of Treatment Upcoming Encounters Date Type Specialty Care Team Description 09/01/2023 Office Visit Hematology Oncology Eleuterio Zapata MD [address] [place] [address] 09/03/2023 Office Visit General Surgery Robi Geiger MD [address] [place] [address] 09/24/2023 Office Visit Pharmacy [facility] [address] [place] [address] 12/19/2023 Telemedicine Hematology Oncology Uriel Watersher [place], MS [address] [place] [address] 01/20/2024 Office Visit Family Medicine Favian Castellon DO [address] [place] [address] 01/26/2024 Office Visit Neurology Sommer Che PA-C [address] [place] [address] Scheduled Procedures Name Priority Associated Diagnoses Date/Ti [...] 03/16/2029 03/16/2019, 12/26/2008 Hepatitis B Completed 06/29/2015, 040 06/2015, 01/19/2014 Pap Smear Discontinued 09/19/2020, 06/0 10/2016, 09/25/2012, Additional history exists Zoster Vaccines Completed 04/23/2022, 10/25/2021 Pneumococcal Vaccine: 65+ Years Completed 06/27/2022, 02/10/2007 VITAMIN D LEVEL ONCE IN A LIFETIME-USE SMARTSET# [id number] Completed 02/14/2023, 09/15/2019, 01/21/2019, Additional history exists GARDASIL-HPV IMMUNIZATION SERIES Aged Out No longer eligible based on patient's age to complete this topic HIV Screening Discontinued MENINGOCOCCAL (MENACTRA/MENVEO) Aged Out No longer eligible based on patient's age to complete this topic documented as of this encounter Medical Devices Implanted Type Area Design Lead Device Identifier Shelf Expiration Date Model / Serial / Lot Lens 24.0 Mx60e - [id number] - [id number] Implanted:Qty: 1 on 04/30/2018 by Martin Donnelly MD at OR [facility] Left: Eye BAUSCH & LOMB 01/10/2021 [id number]-24.0 / [id number] / [id number] Mx60 +23.0d Implanted:Qty: 1 on 05/12/2018 by Martin Donnelly MD at OR [facility] Right: Eye 07/12/2020 [id number] / [id number] / [id number] Duraclip 16mm Xlg Repostn - [id number] Implanted:Qty: 2 on 08/23/2022 by Sudhakar Martell MD at ENDOSCOPY [facility] [employer] JESSICA 11/28/2023 [id number] / / documented as of this encounter Advance Directives Latest Code Status [...] and were consensually agreed upon. Care Teams Water Supply Technician Relationship Specialty Start Date End Date Favian Castellon DO [address] [place] [address] PCP - General Family Medicine 11/05/19 documented as of this encounter
--- OUTSIDE RECORDS SUMMARY | 2023-08-22 17:22 | External Medical Summary | Summary of Care ---
Author Name Unknown Organization [facility] Address [address] [facility] [place] [address] Phone [phone] Care Team Providers Care Drain Layer Name Role Phone Favian Castellon Primary Care Provider Reason for Visit * Reason Comments Outpatient Testing Encounter Details Date Type Department Care Team Description 07/23/2023 [facility] [address] [facility] [address] [facility] [address] Pre-op examination Allergies No known active allergiesdocumented as of [...] WEIGHT GAIN 180 Tablet 3 08/16/2022 Active Dexcom G6 Quilt Maker Device Use as directed . Use to test blood sugar 1 Each 0 09/19/2022 Active Atorvastatin Calcium 80 MG Oral Tablet [...] 10/29/2022 Active Vitamin D (Ergocalciferol) 1.25 MG (59824 UT) Oral Capsule (Drisdol) Take 1 capsule [...] yrs 06/29/2015,01/19/2015,01/19 Pneumococcal Conjugate Vacci ne, 20-valent ([id number]) 06/27/2022 Pneumococcal Polysaccharide PPV23 (Pneumovax) 02/10/2007 SEASONAL [...] on file documented as of this encounter Plan of Treatment Upcoming Encounters Date Type Specialty Care Team Description 07/23/2023 Office Visit Neurology Sommer Che PA-C [address] [place] [address] 09/01/2023 Office Visit Hematology Oncology Eleuterio Zapata MD [address] [place] [address] 09/03/2023 Office Visit General Surgery Robi Geiger MD [address] [place] [address] 09/24/2023 Office Visit Pharmacy [facility] [address] [place] [address] 12/19/2023 Telemedicine Hematology Oncology Alisson Waters, MS [address] [place], [place] [id number] 01/20/2024 Office Visit Family Medicine Favian Castellon DO [address] [place] [address] Scheduled Procedures Name Priority Associated Diagnoses Date/Ti [...] 03/16/2029 03/16/2019, 12/26/2008 Hepatitis B Completed 06/29/2015, 06/2015, 01/19/2014 Pap Smear Discontinued 09/19/2020, 0610/2016, 09/25/2012, Additional history exists Zoster Vaccines Completed 04/23/2022, 10/25/2021 Pneumococcal Vaccine: 65+ Years Completed 06/27/2022, 02/10/2007 VITAMIN D LEVEL ONCE IN A LIFETIME-USE SMARTSET# 39248 Completed 02/14/2023, 09/15/2019, 01/21/2019, Additional history exists GARDASIL-HPV IMMUNIZATION SERIES Aged Out No longer eligible based on patient's age to complete this topic HIV Screening Discontinued MENINGOCOCCAL (MENACTRA/MENVEO) Aged Out No longer eligible based on patient's age to complete this topic documented as of this encounter Medical Devices Implanted Type Area Hand Mold Maker Device Identifier Shelf Expiration Date Model / Serial / Lot Lens 24.0 Mx60e - [id number] - [id number] Implanted:Qty: 1 on 04/30/2018 by Martin Donnelly MD at OR [facility] Left: Eye [employer] LOMB 01/10/2021 [id number]-32.0 / [id number] / [id number] Mx60 +23.0d Implanted:Qty: 1 on 05/12/2018 by Martin Donnelly MD at OR [facility] Right: Eye 07/12/2020 UT4807.0 / [id number] / [id number] Duraclip 16mm Xlg Repostn - [id number] Implanted:Qty: 2 on 08/23/2022 by Sudhakar Martell MD at [facility] CONMED JESSICA 11/28/2023 [id number] / / documented as of this encounter Procedures Procedure Name Priority Date/Time Associated Diagnosis Comments CBC Routine 07/23/2023 10:02 AM EDT Pre-op examination documented in this encounter Results * CBC (07/23/2023 10:02 AM EDT) WBC 8.32 4.00 - 10.80 K/uL 07/23/2023 10:12 AM EDT [facility]10 RBC 4.52 3.85 - 5.15 M/uL 07/23/2023 10:12 AM EDT [facility] 57-10 HGB 13.5 12.0 - 15.3 g/dL 07/23/2023 10:12 AM EDT [facility] 57-10 HCT 41.7 36.0 - 45.2 % 07/23/2023 10:12 AM EDT [facility] 57-10 MCV 92.3 81.5 - 97.5 fL 07/23/2023 10:12 AM EDT [facility] 57-10 MCH 29.9 27.0 - 34.0 pg 07/23/2023 10:12 AM EDT [facility] 57-10 MCHC 32.4 32.0 - 36.0 g/dL 07/23/2023 10:12 AM EDT [facility] 57-10 RDW 14.1 11.5 - 15.5 % 07/23/2023 10:12 AM EDT [facility] 57-10 PLT 260 140 - 400 K/uL 07/23/2023 10:12 AM EDT [facility] 57-10 MPV 10.7 6.6 - 11.1 fL 07/23/2023 10:12 AM EDT [facility] 57-10 Blood Venous blood specimen / Unknown Venipuncture / Unknown 07/23/2023 10:02 AM EDT 07/23/2023 10:02 AM EDT Robi Geiger MD LAB BLOOD ORDER MIN [facility] 57-10 [address] [place] [address] documented in this encounter Visit Diagnoses Diagnosis Pre-op examination Preoperative examination, unspecified documented in this encounter Advance Directives Latest [...] and were consensually agreed upon. Care Teams Drain Layer Relationship Specialty Start Date End Date Favian Castellon DO [address] [place] [address] PCP - General Family Medicine 11/05/19 documented as of this encounter
--- OUTSIDE RECORDS SUMMARY | 2023-08-22 17:22 | External Medical Summary | Summary of Care ---
Author Name Unknown Organization [facility] Address [address] [facility] [place] [address] Phone [phone] Care Team Providers Care Reel Operator Name Role Phone Favian Castellon Primary Care Provider Reason for Visit * Reason Onset Date Comments Appointment 07/23/2023 Nuclear Med Encounter Details Date Type Department Care Team Description 07/23/2023 Telephone Neurology [facility] [place] [address] [place] [address] Sommer Che PA-C [address] [place] [address] Appointment (Nuclear Med) Allergies No known active [...] 10/29/2022 Active Vitamin D (Ergocalciferol) 1.25 MG (32691 UT) Oral Capsule (Drisdol) Take 1 capsule [...] yrs 06/29/2015,01/19/2015,01/19 Pneumococcal Conjugate Vacci ne, 20-valent ([id number]) 06/27/2022 Pneumococcal Polysaccharide PPV23 (Pneumovax) 02/10/2007 SEASONAL [...] schedule patient for EKG either here or [place] office. It was ordered but not given * Telephone Encounter - DONAVAN Norris - 07/23/2023 10:45 AM EDT Please call pt to schedule a nuc med datscan documented in this encounter Plan of Treatment Upcoming Encounters Date Type Specialty Care Team Description 09/01/2023 Office Visit Hematology Oncology Eleuterio Zapata MD [address] [place] [address] 09/03/2023 Office Visit General Surgery Robi Geiger MD [address] [place] [address] 09/24/2023 Office Visit Pharmacy [facility] [address] [place] [address] 12/19/2023 Telemedicine Hematology Oncology Uriel Watersher [place], MS [address] [place] [address] 01/20/2024 Office Visit Family Medicine Favian Castellon DO [address] [place] [address] 01/26/2024 Office Visit Neurology Sommer Che PA-C [address] [place] [address] [address] Scheduled Procedures Name Priority Associated Diagnoses Date/Ti [...] D LEVEL ONCE IN A LIFETIME-USE SMARTSET# 01431 Completed 02/14/2023, 09/15/2019, 01/21/2019, Additional history exists GARDASIL-HPV IMMUNIZATION SERIES Aged Out No longer eligible based on patient's age to complete this topic HIV Screening Discontinued MENINGOCOCCAL (MENACTRA/MENVEO) Aged Out No longer eligible based on patient's age to complete this topic documented as of this encounter Medical Devices Implanted Type Area Roll Repairer Device Identifier Shelf Expiration Date Model / Serial / Lot Lens 24.0 Mx60e - [id number] - [id number] Implanted:Qty: 1 on 04/30/2018 by Martin Donnelly MD at OR [facility] Left: Eye BAUSCH [employer] LOMB 01/10/2021 [id number]-44.0 / [id number] / [id number] Mx60 +23.0d Implanted:Qty: 1 on 05/12/2018 by Martin Donnelly MD at OR [facility] Right: Eye 07/12/2020 BF2785.0 / [id number] / [id number] Duraclip 16mm Xlg Repostn - [id number] Implanted:Qty: 2 on 08/23/2022 by Sudhakar aMrtell MD at ENDOSCOPY [facility] Sqrrl JESSICA 11/28/2023 [id number] / / documented as of this encounter [...] and were consensually agreed upon. Care Teams Reel Operator Relationship Specialty Start Date End Date Favian Castellon DO [address] [place] [address] PCP - General Family Medicine 11/05/19 documented as of this encounter
--- OUTSIDE RECORDS SUMMARY | 2023-08-22 17:22 | External Medical Summary | Summary of Care ---
Author Name Unknown Organization [facility] Address [address] [place] [address] Phone [phone] Care Team Providers Care Binder Layer Name Role Phone Favian Castellon Primary Care Provider Reason for Referral * Precert (Within 10 days (routine)) - Pending Review Specialty Diagnoses / Procedures Referred By Suellen mercer Referred To Contact Radiology Diagnoses Malignant neoplasm of overlapping sites of left female breast, unspecified estrogen receptor status (HCC) Procedures NM LYMPHATICS AND LYMPH NODE IMAGING Robi Geiger MD [address] [place] [address] Referral ID Status Reason Start Date Expiration Date V isits Requested Visits Authorized [id number] Pending Review 08/18/2023 999 999 Reason for Visit * Reason Onset Date Comments Order Request 07/28/2023 Encounter Details Date Type Department Care Team Description 07/28/2023 Telephone General Surgery, [facility] [address] [place] [address] Robi Geiger MD [address] [place] [address] Order Request Allergies No known active allergiesdocumented as of this encounter (statuses as of 07/28/2023) Medications Medication Sig Dispensed Refills Start Date [...] 10/29/2022 Active Vitamin D (Ergocalciferol) 1.25 MG (93884 UT) Oral Capsule (Drisdol) Take 1 capsule [...] as of this encounter (statuses as of 07/28/2023) Active Problems Problem Noted Date MDD (major [...] as of this encounter (statuses as of 07/28/2023) Resolved Problems Problem Noted Date Resolved Date [...] as of this encounter (statuses as of 07/28/2023) Immunizations Name Administration Dates Next Due COVID-19 mRNA, LNP-s, No Pre serve, 2-Dose Series (Pfizer) 08/15/2021,01/23/2021,12/29/2020 Hepatitis B, 20+ yrs 06/29/2015,01/19/2015,01/19 Pneumococcal Conjugate Vacci ne, 20-valent (Llqhttk69) 06/27/2022 Pneumococcal Polysaccharide PPV23 (Pneumovax) 02/10/2007 SEASONAL [...] encounter Miscellaneous Notes * Telephone Encounter - Jeny Mcgrath LPN - 07/28/2023 9:59 AM EDT Order placed. Erika, please print and fax to [facility]. * Telephone Encounter - DONAVAN Pacheco - 07/28/2023 9:43 AM EDT Kelly at [facility] calling requesting order be sent for Lymphocentigraphy injection for Nuc Med for pt'supcoming appt. Please fax to [phone]. documented in this encounter Plan of Treatment Upcoming Encounters Date Type Specialty Care Team Description 08/18/2023 Office Visit Surgery Robi Geiger MD [address] [place] [address] 09/01/2023 Office Visit Hematology Oncology Eleuterio Zapata MD 200 [place] [address] 09/03/2023 Office Visit General Surgery Robi Geiger MD [address] [place] [address] 09/24/2023 Office Visit Pharmacy [facility] [address] [place] [address] 10/29/2023 Imaging Radiology 10/29/2023 Imaging Radiology 12/19/2023 Telemedicine Hematology Oncology Jt Alisson Adamson, MS [address] [place] [address] 01/20/2024 Office Visit Family Medicine Favian Castellon DO [address] [place] [address] 01/26/2024 Office Visit Neurology Sommer Che PA-C 200 [place] [address] Scheduled Orders Name Type Priority Associated Diagnoses Orde r Schedule NM LYMPHATICS AND LYMPH NODE IMAGING Medical Imaging Routine Malignant neoplasm of overlapping sites of left female breast, unspecified estrogen receptor status (HCC) Expected: 08/18/2023, Expires: 08/28/2024 Scheduled Procedures Name Priority Associated Diagnoses Date/Ti [...] 03/13, 01/07/2023, Additional history exists Albumin/Creatinine Ratio 01/08/202401/07/2 023, 06/26/2022, 01/02/2022, Additional history exists TSH [...] 040 06/2015, 01/19/2014 Pap Smear Discontinued 09/19/2020, 060 10/2016, 09/25/2012, Additional history exists Zoster Vaccines Completed 04/23/2022, 10/25/2021 Pneumococcal Vaccine: 65+ Years Completed 06/27/2022, 02/10/2007 VITAMIN D LEVEL ONCE IN A LIFETIME-USE SMARTSET# 34033 Completed 02/14/2023, 09/15/2019, 01/21/2019, Additional history exists GARDASIL-HPV IMMUNIZATION SERIES Aged Out No longer eligible based on patient's age to complete this topic HIV Screening Discontinued MENINGOCOCCAL (MENACTRA/MENVEO) Aged Out No longer eligible based on patient's age to complete this topic documented as of this encounter Medical Devices Implanted Type Area Batter Out Device Identifier Shelf Expiration Date Model / Serial / Lot Lens 24.0 Mx60e - [id number] - [id number] Implanted:Qty: 1 on 04/30/2018 by Martin Donnelly MD at OR [facility] Left: Eye BAUSCH [employer] LOMB 01/10/2021 [id number]-80.0 / [id number] / [id number] Mx60 +23.0d Implanted:Qty: 1 on 05/12/2018 by Martin Donnelly MD at OR [facility] Right: Eye 07/12/2020 [id number] / [id number] / [id number] Duraclip 16mm Xlg Repostn - [id number] Implanted:Qty: 2 on 08/23/2022 by Sudhakar Martell MD at [facility] CONMED JESSICA 11/28/2023 [id number] / / documented as of this encounter Visit Diagnoses Diagnosis Malignant neoplasm of overlapping sites of left female breast, unspecified estrogen receptor status (HCC)- Primary documented in this encounter Advance Directives Latest [...] and were consensually agreed upon. Care Teams Binder Layer Relationship Specialty Start Date End Date Favian Castellon DO [address] [place] [address] PCP - General Family Medicine 11/05/19 documented as of this encounter
--- OUTSIDE RECORDS SUMMARY | 2023-08-22 17:23 | External Medical Summary | Summary of Care ---
Author Name Unknown Organization [facility] Address [address] [facility] [place] [address] Phone [phone] Care Team Providers Care Police Detention Attendant Name Role Phone Favian Castellon DO Primary Care Provider Reason for Visit * Reason Onset Date Comments Pre Cert/Prior Auth 07/17/2023 Peer to peer needed for PET Encounter Details Date Type Department Care Team Description 07/17/2023 Telephone Hematology/Oncology [facility] [address] [place] [address] Outpatient, Precert DO NOT CHANGE - JS Pre Cert/Prior Auth (Peer to peer needed f... Allergies No known active allergiesdocumented as of this encounter (statuses as of 07/17/2023) Medications Medication Sig Dispensed Refills Start Date [...] 180 Tablet 3 08/16/2022 Active Dexcom G6 Manager Of Internal Audit Device Use as directed . Use to [...] 10/29/2022 Active Vitamin D (Ergocalciferol) 1.25 MG (94268 UT) Oral Capsule (Drisdol) Take 1 capsule [...] Trulicity 4.5 MG/0.5ML Subcutaneous Solution Pen-injector (Dulaglutide) INJECT 1 PEN SUBCUTANEOUSLY ONCE A WEEK 4 mL 3 07/01/2023 Active Trulicity 4.5 MG/0.5ML Subcutaneous Solution Pen-injector (Dulaglutide) Inject 1 pen once weekly 6 mL 3 06/30/2023 Active documented as of this encounter (statuses as of 07/17/2023) Active Problems Problem Noted Date MDD (major [...] as of this encounter (statuses as of 07/17/2023) Resolved Problems Problem Noted Date Resolved Date [...] as of this encounter (statuses as of 07/17/2023) Immunizations Name Administration Dates Next Due COVID-19 mRNA, LNP-s, No Pre serve, 2-Dose Series (Pfizer) 08/15/2021,01/23/2021,12/29/2020 Hepatitis B, 20+ yrs 06/29/2015,01/19/2015,01/19 Pneumococcal Conjugate Vacci ne, 20-valent (Fssdkxg16) 06/27/2022 Pneumococcal Polysaccharide PPV23 (Pneumovax) 02/10/2007 SEASONAL [...] encounter Miscellaneous Notes * Telephone Encounter - Vicki Bledsoe LPN - 07/17/2023 12:55 PM EDT Called [employer] and spoke to insurance healthcare representative, gave number #[phone] for phone call. Cannot schedule peer to peer, Dr. Zapata needs to call today. Dr. Zapata: Please call and reference tracking #[id number] for denial of PET CT that is scheduled for tomorrow at [facility]. Also sent TT to Dr. Zapata to notify since he is at [facility] today. * Telephone Encounter - Alisson DONAVAN Padron - 07/17/2023 12:12 PM EDT The PET SCAN requested for Aixa Cruz is currently awaiting Txad-ga-Rvxf Review with [employer]. We kindly request a Nurse, [place], [place], or Physician, call and reference tracking #[id number] to engage in a discussion with a Physician Reviewer to obtain the necessary authorization. PT IS COMING IN TOMORROW 07/18 Based on the clinical documentation provided, the approval of the requested imaging study is contingent upon the completion of a Ymqx-im-Yunm Review. We urge you to initiate this review process promptly, adhering to any specified timeframes, or at your earliest convenience if no specific timeframe has been provided. In the event that a Rjpj-ro-Hzcl Review cannot be conducted, we kindly request that a Clinician contact the patient to discuss and propose an alternative treatment plan. Your prompt attention to thismatter is greatly appreciated. Denial Rationale: Requests for further information and a peer to peer discussion are being sent to the ordering physician. However, if no further information is received within the regulatory time frame, this determination will become final. Your doctors request for a(n) PET Scan with CT for Attenuation has been denied. Your doctor asked for coverage for you to have a(n) PET Scan with CT for Attenuation to treat the following problem that you have: you have a breast problem. This request was denied because all the clinical notes needed to make a decision were not sent. The following notes were requested but have not been sent: doctor's notes that say you did other picture tests first (such as CT (Computed Tomography), MRI (Magnetic Resonance Imaging), ultrasound and/or bone scan). We need to know those tests do not show your doctor how to treat you DONAVAN Estevez 07/17/2023, 12:12 PM documented in this encounter Plan of Treatment Upcoming Encounters Date Type Specialty Care Team Description 07/18/2023 Imaging Radiology 07/21/2023 Office Visit Hematology Oncology Eleuterio Zapata MD [address] [facility] [address] 07/23/2023 Office Visit General Surgery Robi Geiger MD [address] [place] [address] 09/24/2023 Office Visit Pharmacy [facility] [address] [place] [address] 10/31/2023 Office Visit Neurology Sommer Che PA-C [address] [facility] [place] [address] 12/19/2023 Telemedicine Hematology Oncology Alisson Waters, MS [address] [place] [address] 01/20/2024 Office Visit Family Medicine Favian Castellon DO [address] [place] [address] Scheduled Procedures Name Priority Associated Diagnoses Date/Ti [...] 04/0 06/2015, 01/19/2014 Pap Smear Discontinued 09/19/2020, 060 10/2016, 09/25/2012, Additional history exists Zoster Vaccines Completed 04/23/2022, 10/25/2021 Pneumococcal Vaccine: 65+ Years Completed 06/27/2022, 02/10/2007 VITAMIN D LEVEL ONCE IN A LIFETIME-USE SMARTSET# 09465 Completed 02/14/2023, 09/15/2019, 01/21/2019, Additional history exists GARDASIL-HPV IMMUNIZATION SERIES Aged Out No longer eligible based on patient's age to complete this topic HIV Screening Discontinued MENINGOCOCCAL (MENACTRA/MENVEO) Aged Out No longer eligible based on patient's age to complete this topic documented as of this encounter Medical Devices Implanted Type Area Gas Dispatcher Device Identifier Shelf Expiration Date Model / Serial / Lot Lens 24.0 Mx60e - [id number] - [id number] Implanted:Qty: 1 on 04/30/2018 by Martin Donnelly MD at OR [facility] Left: Eye BAUSCH [employer] LOMB 01/10/2021 [id number]-46.0 / [id number] / [id number] Mx60 +23.0d Implanted:Qty: 1 on 05/12/2018 by Martin Donnelly MD at OR [facility] Right: Eye 07/12/2020 [id number] / [id number] / [id number] Duraclip 16mm Xlg Repostn - [id number] Implanted:Qty: 2 on 08/23/2022 by Sudhakar Martell MD at ENDOSCOPY [facility] Handmade Mobile JESSICA 11/28/2023 [id number] / / documented as of this encounter [...] and were consensually agreed upon. Care Teams Police Detention Attendant Relationship Specialty Start Date End Date Favian Castellon DO [address] [place] [address] PCP - General Family Medicine 11/05/19 documented as of this encounter
--- OUTSIDE RECORDS SUMMARY | 2023-08-22 17:23 | External Medical Summary | Summary of Care ---
Author Name Unknown Organization [facility] Address [address] [facility] [place] [address] Phone [phone] Care Team Providers Care Airdrop Systems Technician Name Role Phone Favian Castellon Primary Care Provider Encounter Details Date Type Department Care Team Description 07/17/2023 Orders Only Pharmacy, [facility] [address] [facility] [place] [address] [facility] [place] [address] Allergies No known active allergiesdocumented as of this encounter (statuses as of 07/17/2023) Medications Medication Sig Dispensed Refills Start Date End Date Status B-D Ultrafine III, 5MM, Pen MISC Use daily with insulin pen 1 Box Dosing Unit 11 6 Active aspirin 81 MG chewable tabletIndications:D M type 2, 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 with food. 100 Tab 5 6 Active Insulin Pen Needle 31G X 5 MM Use with Lantus and Novolog 4 times a day. Can substitute for preferred brand Dx E11.9 400 Each 3 2 Active Furosemide 20 MG Oral Tablet (Lasix)Indications: Localized edema TAKE 1 TABLET BY MOUTH TWICE DAILY NEEDED FOR FEET SWELLING, FLUID ACCUMULATION, OR WEIGHT GAIN 180 Tablet 3 2 Active Dexcom G6 Dry Can Tender Device Use as directed . Use to test blood sugar 1 Each 0 2 Active Atorvastatin Calcium 80 MG Oral Tablet (Lipitor) Take 1 tablet by mouth once daily 90 Tablet 1 2 Active Levothyroxine Sodium 100 MCG Oral TabletIndications:A cquired hypothyroidism TAKE 1 TABLET BY MOUTH IN THE MORNING 30 MIN PRIOR TO BREAKFAST OR OTHER MEDS 90 Tablet 2 2 Active Atenolol 25 MG Oral Tablet (Tenormin)Indicatio ns:HTN, goal below 130/80 Take 1 Tablet by mouth in the morning. 90 Tablet 3 3 Active Vitamin D (Ergocalciferol) 1.25 MG (39477 UT) Oral Capsule (Drisdol) Take 1 capsule by mouth once a week 12 Capsule 0 3 Active Dexcom G7 Sensor Use to test blood sugar 3 Each 11 3 Active Losartan Potassium-HCTZ 100-25 MG Oral Tablet (Hyzaar)Indications :HTN, goal below 130/80 Take 1 tablet by mouth once daily 90 Tablet 3 3 Active Semglee (yfgn) 100 UNIT/ML Subcutaneous Solution Pen-injector INJECT 35 UNITS SUBCUTANEOUSLY AT BEDTIME 0 3 Active Alendronate Sodium 70 MG Oral Tablet (Fosamax) Take 1 Tablet by mouth once a week. with 8 oz. water 30 minutes before first meal of the day. Remain upright for 30 min after taking tablet. 15 Tablet 5 3 Active NovoLOG FlexPen 100 UNIT/ML Subcutaneous Solution Pen-injector INJECT 5 UNITS SUBCUTANEOUSLY IN THE MORNING, 10 UNITS AT LUNCH, AND 20 UNITS AT SUPPER 15 mL 11 3 Active Trulicity 4.5 MG/0.5ML Subcutaneous Solution Pen-injector (Dulaglutide) Inject 1 pen once weekly 6 mL 3 3 Active Mounjaro 5 MG/0.5ML Subcutaneous Solution Pen-injector (Tirzepatide) Inject 5 mg under the skin once a week. 2 mL 3 07/16/20 24 Active Trulicity 4.5 MG/0.5ML Subcutaneous Solution Pen-injector (Dulaglutide) INJECT 1 PEN SUBCUTANEOUSLY ONCE A WEEK 4 mL 3 07/17/20 23 Discontinu ed(Medicat ion List Clean Up) documented as of this encounter (statuses as [...] yrs 06/29/2015,01/19/2015,01/19 Pneumococcal Conjugate Vacci ne, 20-valent (Onszkvo59) 06/27/2022 Pneumococcal Polysaccharide PPV23 (Pneumovax) 02/10/2007 SEASONAL [...] Encounters Date Type Specialty Care Team Description 07/21/2023 Office Visit Hematology Oncology Eleuterio Zapata MD [address] [place] [address] 07/23/2023 Office Visit General Surgery Robi Geiger MD [address] [place] [address] 09/24/2023 Office Visit Pharmacy [facility] [place] [address] [place] [address] 10/31/2023 Office Visit Neurology Sommer Che PA-C [address] [place] [address] 12/19/2023 Telemedicine Hematology Oncology Alisson Waters, MS [address], [place] [id number] 01/20/2024 Office Visit Family Medicine Favian Castellon DO [address] [place] [address] Scheduled Procedures Name Priority Associated Diagnoses Date/Ti [...] D LEVEL ONCE IN A LIFETIME-USE SMARTSET# 36567 Completed 02/14/2023, 09/15/2019, 01/21/2019, Additional history exists GARDASIL-HPV IMMUNIZATION SERIES Aged Out No longer eligible based on patient's age to complete this topic HIV Screening Discontinued MENINGOCOCCAL (MENACTRA/MENVEO) Aged Out No longer eligible based on patient's age to complete this topic documented as of this encounter Medical Devices Implanted Type Area Post Doc Fellowship Device Identifier Shelf Expiration Date Model / Serial / Lot Lens 24.0 Mx60e - [id number] - [id number] Implanted:Qty: 1 on 04/30/2018 by Martin Donnelly MD at OR [facility] Left: Eye BAUSCH & LOMB 01/10/2021 [id number]-42.0 / [id number] / [id number] Mx60 +23.0d Implanted:Qty: 1 on 05/12/2018 by Martin Donnelly MD at OR [facility] Right: Eye 07/12/2020 ND0649.0 / [id number] / [id number] Duraclip 16mm Xlg [facility] - [id number] Implanted:Qty: 2 on 08/23/2022 by Sudhakar Martell MD at [facility] [employer] JESSICA 11/28/2023 [id number] / / documented as of this encounter [...] and were consensually agreed upon. Care Teams Airdrop Systems Technician Relationship Specialty Start Date End Date Favian Castellon DO [address] [place] [address] PCP - General Family Medicine 11/05/19 documented as of this encounter
--- OUTSIDE RECORDS SUMMARY | 2023-08-22 17:23 | External Medical Summary | Summary of Care ---
Author Name Unknown Organization [facility] Address [address] [facility] [place] [address] Phone [phone] Care Team Providers Care Collar Runner Name Role Phone Favian Castellon DO Primary Care Provider Reason for Visit * Reason Onset Date Comments Pre Cert/Prior Auth 07/17/2023 Peer to peer needed for PET Encounter Details Date Type Department Care Team Description 07/17/2023 Telephone Hematology/Oncology [facility] [address] [place] [address] Outpatient, Precert DO NOT CHANGE - JS [...] 180 Tablet 3 08/16/2022 Active Dexcom G6 Rum Processing Operator Device Use as directed . Use to [...] 10/29/2022 Active Vitamin D (Ergocalciferol) 1.25 MG (03329 UT) Oral Capsule (Drisdol) Take 1 capsule [...] yrs 06/29/2015,01/19/2015,01/19 Pneumococcal Conjugate Vacci ne, 20-valent (Cudnntz87) 06/27/2022 Pneumococcal Polysaccharide PPV23 (Pneumovax) 02/10/2007 SEASONAL [...] Encounter - Vicki Bledsoe LPN - 07/17/2023 2:[address] Zapata states: "Denied for pet. No more test at this point " [place]: Appointment needs to be canceled for PET scan tomorrow. Scan was denied. Called patient, she is meeting with Dr. Geiger on Friday. Notified that scan was denied and she will talk to Dr. Zapata about options and care during appointment on 07/21/23, verbalizes understanding. * Telephone Encounter - Vicki Bledsoe LPN - 07/17/2023 12:55 PM EDT Called [employer] and spoke to union contract representative, gave number #[phone] for phone call. Cannot schedule peer to peer, Dr. Zapata needs to call today. Dr. Zapata: Please call and reference tracking #[id number] for denial of PET CT that is scheduled for tomorrow at [facility]. Also sent TT to Dr. Zapata to notify since he is at [facility] today. * Telephone Encounter - DONAVAN Estevez - 07/17/2023 12:12 PM EDT The PET SCAN requested for Aixa Cruz is currently awaiting Wpve-mb-Lxrg Review with [employer]. We kindly request a Nurse, DUDLEY, [place], or Physician, call and reference tracking #[id number] to engage in a discussion with a Physician Reviewer to obtain the necessary authorization. PT IS COMING IN TOMORROW 07/18 Based on the clinical documentation provided, the approval of the requested imaging study is contingent upon the completion of a Ywdn-ot-Anaw Review. We urge you to initiate this review process promptly, adhering to any specified timeframes, or at your earliest convenience if no specific timeframe has been provided. In the event that a Fvfx-ay-Oznm Review cannot be conducted, we kindly request [...] Hematology Oncology Eleuterio Zapata MD [address] [place] [address] 07/23/2023 Office Visit General Surgery Robi Geiger MD [address] [place] [address] 09/24/2023 Office Visit Pharmacy [facility] [place] [address] [place] [address] 10/31/2023 Office Visit Neurology Sommer Che PA-C [address] [place] [address] 12/19/2023 Telemedicine Hematology Oncology Alisson Waters, MS [address] [place] [address] 01/20/2024 Office Visit Family Medicine Favian Castellon, [address] [place] [address] Scheduled Procedures Name Priority Associated Diagnoses Date/Ti [...] D LEVEL ONCE IN A LIFETIME-USE SMARTSET# 38202 Completed 02/14/2023, 09/15/2019, 01/21/2019, Additional history exists GARDASIL-HPV IMMUNIZATION SERIES Aged Out No longer eligible based on patient's age to complete this topic HIV Screening Discontinued MENINGOCOCCAL (MENACTRA/MENVEO) Aged Out No longer eligible based on patient's age to complete this topic documented as of this encounter Medical Devices Implanted Type Area Manager Market Device Identifier Shelf Expiration Date Model / Serial / Lot Lens 24.0 Mx60e - [id number] - [id number] Implanted:Qty: 1 on 04/30/2018 by Martin Donnelly MD at OR [facility] Left: Eye BAUSCH & LOMB 01/10/2021 [id number]-42.0 / [id number] / [id number] Mx60 +23.0d Implanted:Qty: 1 on 05/12/2018 by Martin Donnelly MD at OR [facility] Right: Eye 07/12/2020 WA9597.0 / [id number] / [id number] Duraclip 16mm Xlg [employer] - [id number] Implanted:Qty: 2 on 08/23/2022 by Sudhakar Martell MD at ENDOSCOPY [facility] CONMED JESSICA 11/28/2023 [id number] / / documented as of this encounter [...] and were consensually agreed upon. Care Teams Collar Runner Relationship Specialty Start Date End Date Favian Castellon DO [address] [place] [address] PCP - General Family Medicine 11/05/19 documented as of this encounter
--- OUTSIDE RECORDS SUMMARY | 2023-08-22 17:23 | External Medical Summary | Summary of Care ---
Author Name Unknown Organization [facility] Address [address] [facility] [place] [address] Phone [phone] Care Team Providers Care Project Development Engineer Name Role Phone Favian Castellon Primary Care Provider Encounter Details Date Type Department Care Team Description 07/17/2023 Telephone Pharmacy, [facility] [address] [facility] [place] [phone] [facility] [address] [facility] [place] [id number] Allergies No known active allergiesdocumented as of [...] 180 Tablet 3 2 Active Dexcom G6 Cell Manager Device Use as directed . Use to [...] 3 Active Vitamin D (Ergocalciferol) 1.25 MG (12430 UT) Oral Capsule (Drisdol) Take 1 capsule [...] once weekly 6 mL 3 3 Active Trulicity 4.5 MG/0.5ML Subcutaneous Solution Pen-injector (Dulaglutide) INJECT 1 PEN SUBCUTANEOUSLY ONCE A WEEK 4 mL 3 3 07/17/20 23 Discontinu ed(Medicat ion List [...] yrs 06/29/2015,01/19/2015,01/19 Pneumococcal Conjugate Vacci ne, 20-valent (Xzhuilo32) 06/27/2022 Pneumococcal Polysaccharide PPV23 (Pneumovax) 02/10/2007 SEASONAL [...] encounter Miscellaneous Notes * Telephone Encounter - Piper Reyez [facility] - 07/17/2023 3:26 PM EDT Patient Phone Numbers Spoke to patient via phone. She was recently diagnosed with blood cancer. Notes having some issues with dexcom but has that in hand. Piper Reyez, Pharm D, BCACP Clinical Pharmacist 07/17/2023, 3:29 PM documented in this encounter Plan of Treatment Upcoming Encounters Date Type Specialty Care Team Description 07/21/2023 Office Visit Hematology Oncology Eleuterio Zapata MD [address] [facility] [place] [address] 07/23/2023 Office Visit General Surgery Robi Geiger MD [address] [place] [address] 09/24/2023 Office Visit Pharmacy [facility] [place] [address] [place] [address] 10/31/2023 Office Visit Neurology Sommer Che PA-C [address] [place] [address] 12/19/2023 Telemedicine Hematology Oncology Alisson Waters, MS [address] [place] [address] 01/20/2024 Office Visit Family Medicine Favian Castellon DO [address] [place] [address] Scheduled Procedures Name Priority Associated Diagnoses Date/Ti me COLONOSCOPY FLEXIBLE PROXIMAL DIAGNOSTIC Recall History of colon polyps Health Maintenance Due Date Last Done Comments DIABETES-EYE EXAM 05/31/2023 05/31/2022, , 08/11/2020, Additional history exists COVID-19 Vaccine (24 season) 2023 08/15/2021, 01/23/2021, 12/29/2020 Influenza Vaccine [...] D LEVEL ONCE IN A LIFETIME-USE SMARTSET# 56772 Completed 02/14/2023, 09/15/2019, 01/21/2019, Additional history exists GARDASIL-HPV IMMUNIZATION SERIES Aged Out No longer eligible based on patient's age to complete this topic HIV Screening Discontinued MENINGOCOCCAL (MENACTRA/MENVEO) Aged Out No longer eligible based on patient's age to complete this topic documented as of this encounter Medical Devices Implanted Type Area Bag Mender Device Identifier Shelf Expiration Date Model / Serial / Lot Lens 24.0 Mx60e - [id number] - [id number] Implanted:Qty: 1 on 04/30/2018 by Martin Donnelly MD at OR [facility] Left: Eye BAUSCH & LOMB 01/10/2021 IJ52E-09.0 / [id number] / [id number] Mx60 +23.0d Implanted:Qty: 1 on 05/12/2018 by Martin Donnelly MD at OR [facility] Right: Eye 07/12/2020 TT2191.0 / [id number] / [id number] Duraclip 16mm Xlg [facility] - [id number] Implanted:Qty: 2 on 08/23/2022 by Sudhakar Martell MD at ENDOSCOPY [facility] [employer] 11/28/2023 [id number] / / documented as of this encounter [...] and were consensually agreed upon. Care Teams Project Development Engineer Relationship Specialty Start Date End Date Favian Castellon DO [address] [place] [address] PCP - General Family Medicine 11/05/19 documented as of this encounter
--- OUTSIDE RECORDS SUMMARY | 2023-08-22 17:23 | External Medical Summary | Summary of Care ---
Author Name Unknown Organization [facility] Address [address] [facility] [place] [address] Phone [phone] Care Team Providers Care Wrapper Caser Name Role Phone Favian Castellon DO Primary Care Provider Reason for Visit * Reason Onset Date Comments Pre Cert/Prior Auth 07/17/2023 Peer to peer needed for PET Encounter Details Date Type Department Care Team Description 07/17/2023 Telephone Hematology/Oncology [facility] [address] [place] [address] Outpatient, Precert DO NOT CHANGE - JS [...] 180 Tablet 3 2 Active Dexcom G6 Historian Research Assistant Device Use as directed . Use to [...] 3 Active Vitamin D (Ergocalciferol) 1.25 MG (67433 UT) Oral Capsule (Drisdol) Take 1 capsule [...] yrs 06/29/2015,01/19/2015,01/19 Pneumococcal Conjugate Vacci ne, 20-valent (Salxjxs22) 06/27/2022 Pneumococcal Polysaccharide PPV23 (Pneumovax) 02/10/2007 SEASONAL [...] encounter Miscellaneous Notes * Telephone Encounter - Debra Robles RN - 07/17/2023 3:35 PM EDT Scheduling: please cancel PET tomorrow. Thanks! * Telephone Encounter - Vicki Bledsoe LPN - 07/17/2023 2:[address] Zapata states: "Denied for pet. No more test at this point " [place]: Appointment needs to be canceled for PET scan tomorrow. Scan was denied. Called patient, she is meeting with Dr. Geiger on Friday. Notified that scan was denied and she will talk to Dr. Zapata about options and care during appointment on 07/21/23, verbalizes understanding. * Telephone Encounter - Vicki Bledsoe LPN - 07/17/2023 12:55 PM EDT Called [employer] and spoke to bank representative, gave number #[phone] for phone call. Cannot schedule peer to peer, Dr. Zapata needs to call today. Dr. Zapata: Please call and reference tracking #[id number] for denial of PET CT that is scheduled for tomorrow at [facility]. Also sent TT to Dr. Zapata to notify since he is at [facility] today. * Telephone Encounter - DONAVAN Estevez - 07/17/2023 12:12 PM EDT The PET SCAN requested for Aixa Cruz is currently awaiting Duai-qk-Xjfc Review with [employer]. We kindly request a Nurse, DUDLEY, [place], or Physician, call and reference tracking #[id number] to engage in a discussion with a Physician Reviewer to obtain the necessary authorization. PT IS COMING IN TOMORROW 07/18 Based on the clinical documentation provided, the approval of the requested imaging study is contingent upon the completion of a Qhjf-oc-Onpr Review. We urge you to initiate this review process promptly, adhering to any specified timeframes, or at your earliest convenience if no specific timeframe has been provided. In the event that a Yher-td-Llsm Review cannot be conducted, we kindly request [...] Hematology Oncology Eleuterio [facility]ata MD [address] [facility] [address] 07/23/2023 Office Visit General Surgery Robi Geiger MD [address] [place] [address] 09/24/2023 Office Visit Pharmacy [place] [address] [place] [address] 10/31/2023 Office Visit Neurology Sommer Che PA-C [address] [facility] [place] [address] 12/19/2023 Telemedicine Hematology Oncology [place], MS [address] [facility] [address] 01/20/2024 Office Visit Family Medicine Favian Castellon, [address] [place] [address] Scheduled Procedures Name Priority Associated Diagnoses Date/Ti [...] D LEVEL ONCE IN A LIFETIME-USE SMARTSET# 42150 Completed 02/14/2023, 09/15/2019, 01/21/2019, Additional history exists GARDASIL-HPV IMMUNIZATION SERIES Aged Out No longer eligible based on patient's age to complete this topic HIV Screening Discontinued MENINGOCOCCAL (MENACTRA/MENVEO) Aged Out No longer eligible based on patient's age to complete this topic documented as of this encounter Medical Devices Implanted Type Area Household Appliance Installer Device Identifier Shelf Expiration Date Model / Serial / Lot Lens 24.0 Mx60e - [id number] - [id number] Implanted:Qty: 1 on 04/30/2018 by Martin Donnelly MD at OR [facility] Left: Eye BAUSCH & LOMB 01/10/2021 GD14O-24.0 / [id number] / [id number] Mx60 +23.0d Implanted:Qty: 1 on 05/12/2018 by Martin Donnelly MD at OR [facility] Right: Eye 07/12/2020 [id number] / [id number] / [id number] Duraclip 16mm Xlg Repostn - [id number] Implanted:Qty: 2 on 08/23/2022 by Sudhakar Martell MD at ENDOSCOPY [facility] [employer]otemed[employer] JESSICA 11/28/2023 [id number] / / documented as of this encounter [...] and were consensually agreed upon. Care Teams Wrapper Caser Relationship Specialty Start Date End Date Favian Castellon DO [address] [place] [address] PCP - General Family Medicine 11/05/19 documented as of this encounter
--- OUTSIDE RECORDS SUMMARY | 2023-08-22 17:23 | External Medical Summary ---
Author Name Unknown Address Unknown Organization [facility] [place] [address] [place] [address] Laboratory Report Ordering Provider Test Date Status KATARINA CACERES 07/23/2023 10:02:18 Final Observation Date Value Abnormality Reference (Units ) Status WBC, Total 07/23/2023 10:02:18 8.32 4.00-10.8 0 (K/uL) Final RBC 07/23/2023 10:02:18 4.52 3.85-5.15 (M/uL) Final Hemoglobin 07/23/2023 10:02:18 13.5 12.0-15.3 (g/dL) Final HCT 07/23/2023 10:02:18 41.7 36.0-45.2 (%) Final MCV 07/23/2023 10:02:18 92.3 81.5-97.5 (fL) Final MCH 07/23/2023 10:02:18 29.9 27.0-34.0 (pg) Final MCHC 07/23/2023 10:02:18 32.4 32.0-36.0 (g/dL) Final RDW 07/23/2023 10:02:18 14.1 11.5-15.5 (%) Final Platelets 07/23/2023 10:02:18 260 140-400 (K /uL) Final MPV 07/23/2023 10:02:18 10.7 6.6-11.1 ( fL) Final Performing Location [facility] [place] [address]
--- OUTSIDE RECORDS SUMMARY | 2023-08-22 17:23 | External Medical Summary | Summary of Care ---
Author Name Unknown Organization [facility] Address [address] [facility] [place] [address] Phone [phone] Care Team Providers Care Engineering Psychologist Name Role Phone Favian Castellon Primary Care Provider Reason for Visit * Reason Comments Follow Up Encounter Details Date Type Department Care Team Description 07/21/2023 Office Visit Hematology/Oncology [place] Fariha Callahan [address] [facility] [place] [address] Eleuterio Zapata MD [address] [facility] [place] [address] Breast carcinoma, female, left (HCC)* Allergies No known active allergiesdocumented as of this encounter (statuses as of 07/21/2023) Medications Medication Sig Dispensed Refills Start Date [...] 180 Tablet 3 08/16/2022 Active Dexcom G6 Patient Service Rep Device Use as directed . Use to [...] 10/29/2022 Active Vitamin D (Ergocalciferol) 1.25 MG (70991 UT) Oral Capsule (Drisdol) Take 1 capsule [...] as of this encounter (statuses as of 07/21/2023) Active Problems Problem Noted Date MDD (major [...] as of this encounter (statuses as of 07/21/2023) Resolved Problems Problem Noted Date Resolved Date [...] as of this encounter (statuses as of 07/21/2023) Immunizations Name Administration Dates Next Due COVID-19 mRNA, LNP-s, No Pre serve, 2-Dose Series (Pfizer) 08/15/2021,01/23/2021,12/29/2020 Hepatitis B, 20+ yrs 06/29/2015,01/19/2015,01/19 Pneumococcal Conjugate Vacci ne, 20-valent ([id number]) 06/27/2022 Pneumococcal Polysaccharide PPV23 (Pneumovax) 02/10/2007 SEASONAL [...] Date Smoking Tobacco: Never Smokeless Tobacco: Never Tobacco Cessation:Counseling Given: Not Answered Alcohol Use Standard Drinks/Week Comments Yes 0 [...] Sign Reading Time Taken Comments Blood Pressure 152/78 07/21/2023 8:40 AM EDT Pulse 66 07/21/2023 8:40 AM EDT Temperature 36.7 C (98.1 F) 07/21/2023 8:40 AM ED T Respiratory Rate 16 07/21/2023 8:40 AM EDT Oxygen Saturation 97% 07/21/2023 8:40 AM EDT Inhaled Oxygen Concentration - - Weight 77.6 kg (171 lb) 07/21/2023 8:40 AM EDT Height - - Body Mass Index 33.68 07/08/2023 11:26 AM EDT documented in this encounter Progress Notes * Eleuterio Zapata MD - 07/21/2023 8:41 AM EDT Outpatient Consult Note Data Source: Patient, Epic record. Data Source: Patient, Epic record. 07/21/2023 8:41 AM Aixa G Salomonmaile [id number] 67 year old Patient Encounter: HEMATOLOGY/ONCOLOGY [facility] Cancer Diagnosis: Left breast cancer, pathology consistent with complex cystic lesion with the small detached fragments of adenocarcinoma, ER/NJ and HER2 Musa negative. She shani clinically stage T2 N0 disease. Current Treatment: For discussion Previous Treatment: None Oncologic History : 67-year-old and mammogram done on 05/29/2023 which revealed 43 mm x 33 mm x 48 mm mass at the upperouter middle position, no enlarged lymph nodes in the axillary area. Ultrasound-guided core biopsy was done on 06/24/2023 and pathology is consistent with complex cystic mass core biopsy with few small detached fragments of adenocarcinoma, ER/NJ and HER2 Musa negative. Final Diagnosis A. Left breast, 2:00 complex cystic lesion, core biopsy: Cores of breast tissue with few small detached fragments of adenocarcinoma Estrogen Receptor (ER) protein expression is NEGATIVE Progesterone Receptor (NJ) protein expression is NEGATIVE HER2 oncoprotein expression is NEGATIVE Patient is scheduled for the MRI breast on 07/14/2023. Overall clinically she is stable without any new symptoms. Denies any headache, blurred vision, chest pain shortness breath palpitation abdominal pain or distention, new bone pain, nausea, vomiting, fever, night sweats, weight loss, bleeding. She denies smoking. Drinks alcohol rarely/socially. Family history significant for mother was diagnosed of breast cancer at the age of 72. Interval History: I had discussed with the pathology and the recommended repeat biopsy diagnosis. Overall clinically she is stable without any new symptoms complain. She had MRI breast done on 07/14/2023 which shows complex solid cystic mass with enhancement of the solid components and the thickened betancourt of the cystic component. It demonstrates mixed enhancement kinetics including washout, It measures approximately 4.2 x 4.0 x 4.2 cm, Low suspicion enhancing foci are present inferior, no axillary or internal mammary lymphadenopathy. LABS/IMAGING: Results for orders placed or performed in visit on 06/24/23 HEMOGLOBIN A1C Result Value Ref Range Hemoglobin A1C 8.2 (H) 4.0 - 5.6 % Estimated Average Glucose 189 (H) <126 mg/dL REVIEW OF SYSTEMS: General: No Fever, chills, night sweats, or weight loss. HEENT: No change in visual acuity, blurred or double vision. No epistaxis, facial pain, nasal discharge or change in hearing. Denies dysphagia, no muscosal ulceration, or sores noted. Cardiovascular: No chest pain, ASHTON, or palpitations Respiratory: No shortness of breath, cough, hemoptysis, or pleuritic chest pain Gastrointestinal: No abdominal pain, nausea, vomiting, diarrhea, rectal pain or bleeding Genitourinary: Denies Hematuria or dysuria Musculoskeletal: Chronic back pain Psychiatric: No vegetative signs of depression Endocrine: No symptoms of hypothyroidism or hyperglycemia Hematologic: No bleeding or lymph nodes noted As mentioned above, all of the systems were reviewed in full and are unremarkable. Past Medical History: Diagnosis Date Depression with anxiety 10/31/2020 Dyslipidemia, goal to be determined Essential and other specified forms of tremor essential tremor High risk for fracture due to osteoporosis by DEXA scan 10/02/2018 HTN, goal below 140/90 Non compliance w medication regimen 09/16/2019 Current Outpatient Medications Medication Sig Dispense Refill [...] ACCUMULATION, OR WEIGHT GAIN 180 Tablet 3 Dexcom G6 Patient Service Rep Device Use as directed . Use to test blood sugar 1 Each 0 Atorvastatin Calcium 80 MG Oral Tablet (Lipitor) [...] Tablet 3 Vitamin D (Ergocalciferol) 1.25 MG (88232 UT) Oral Capsule (Drisdol) Take 1 capsule [...] No current facility-administered medications for this visit. Social History Tobacco Use Smoking status: Never Smokeless tobacco: Never Vaping Use Vaping Use: Never used Substance Use Topics Alcohol use: Yes Comment: rare Drug use: No Review of patient's allergies indicates: No Known Allergies PHYSICAL EXAMINATION: General Appearance: Healthy appearing patient in no acute distress BP 152/78 (BP Site: Left Arm, BP Position: Sitting, BP Cuff Size: Regular) | Pulse 66 | Temp 36.7 C (98.1 F) (Tympanic) | Resp 16 | Wt 77.6 kg (171 lb) | LMP 03/13/2011 | SpO2 97% | BMI 33.68 kg/m | BSA 1.81 m Vitals reviewed. HEENT: No oral or pharyngeal masses, ulceration or thrush noted, no sinus tenderness. Neck is supple with no thyromegaly or JVD noted. Lymph Nodes: No lymphadenopathy noted in the occipital, pre and post auricular, cervical, supra andinfraclavicular, axillary, epitrochlear, inguinal, and popliteal region. Lungs/Thorax: Clear to auscultation, no accessory muscles of respiration being used. Heart: Regular rate and rhythm, normal S1, S2 Abdomen: Soft, nontender, bowel sounds present, no appreciable hepatosplenomegaly, no palpable masses Extremeties: Good pulses bilaterally, no peripheral edema. Musculoskeletal: No pain on palpation over bony prominence, no edema, no evidence of gout, no jointor bony deformity ASSESSMENT: 67-year-old female with a past medical history significant for dyslipidemia, hypertension and diabetes was referred with recent diagnosis of left breast cancer which was found the mammogram. On the ultrasound there is complex cystic and solid mass with mostly circumscribed margins. Biopsy from the mass revealed complex cystic mass with small few detached fragments of adenocarcinoma. ER/NJ and HER2 Musa negative. Clinically patient has stage T2 N0 disease. She had MRI breast done which shows the same solid/cystic component and the tumor size is 4.2 x 4 x4.2 cm and there is a low suspicious enhancing foci present inferiorly, no enlarged lymph nodes on the MRI. I had also discussed pathology with the pathologist and recommend repeat biopsy for confirming the diagnosis. Patient has follow-up appointment with Dr. Geiger on 07/23/2023. She is considering bilateral mastectomy. Again discussed with the patient and family including son and about the diagnosis and MRI finding. Further management will depend on the final pathology. PET scan was denied by the insurance. PLAN: As above. Return to clinic in 6 weeks. The patient voiced understanding of all of the above. All questions and concerns were addressed in an apparently satisfactory manner. Eleuterio Zapata MD (This note was completed using the dictation program Fluency Direct. As such, there may be misspellings, word substitutions, or other variations that should not change the essence of the clinical content of this encounter note. If there is need for further clarification, please direct questions to me.) documented in this encounter Nursing Notes * Jackie Castellon CMA - 07/21/2023 8:41 AM EDT Patient identifed by name and birthdate Do you have any concerns about pain management for today's visit? Yes. Patient instructed to discuss pain concerns with provider during the visit today Living Will or Advance Directive for Health Care as noted on the problem list. [facility] is a way you can talk to your provider on line through e-mail. Would you like to sign up? I can activate it for you? ALREADY ACTIVE Filed Vitals: 07/21/23 0840 BP: 152/78 Pulse: 66 Resp: 16 Temp: 36.7 C (98.1 F) TempSrc: Tympanic SpO2: 97% Weight: 77.6 kg (171 lb) Patient was instructed to not get up on the exam table/exam chair until directed and assisted by their provider; patient is to remain seated in the chair/ wheelchair/ exam table/ exam chair for fall prevention and safety reasons. Patient is aware to have assistance to step down off exam table/exam chair with personnel. Patient voiced full comprehension of instructions. documented in this encounter Plan of Treatment Upcoming Encounters Date Type Specialty Care Team Description 07/23/2023 Office Visit General Surgery Robi Geiger MD [address] [place] [address] 07/23/2023 Office Visit Neurology Sommer Che PA-C [address] [place] [address] 09/01/2023 Office Visit Hematology Oncology Eleuterio Zapata MD [address] [place] [address] 09/24/2023 Office Visit [facility] [place] [address] [place] [address] 12/19/2023 Telemedicine Hematology Oncology [place] Alisson Adamson, MS [address] [facility] [place] [address] 01/20/2024 Office Visit Family Medicine Favian Castellon DO [address] [place] [address] Scheduled Procedures Name Priority Associated Diagnoses Date/Ti [...] D LEVEL ONCE IN A LIFETIME-USE SMARTSET# 28560 Completed 02/14/2023, 09/15/2019, 01/21/2019, Additional history exists GARDASIL-HPV IMMUNIZATION SERIES Aged Out No longer eligible based on patient's age to complete this topic HIV Screening Discontinued MENINGOCOCCAL (MENACTRA/MENVEO) Aged Out No longer eligible based on patient's age to complete this topic documented as of this encounter Medical Devices Implanted Type Area Barrel Assembler Helper Device Identifier Shelf Expiration Date Model / Serial / Lot Lens 24.0 Mx60e - [id number] - [id number] Implanted:Qty: 1 on 04/30/2018 by Martin Donnelly MD at OR [facility] Left: Eye [employer] LOMB 01/10/2021 [id number]-18.0 / [id number] / [id number] Mx60 +23.0d Implanted:Qty: 1 on 05/12/2018 by Martin Donnelly MD at OR [facility] Right: Eye 07/12/2020 [id number] / [id number] / [id number] Duraclip 16mm Xlg Repostn - [id number] Implanted:Qty: 2 on 08/23/2022 by Sudhakar Martell MD at ENDOSCOPY [facility] [employer] 11/28/2023 [id number] / / documented as of this encounter Visit Diagnoses Diagnosis Breast carcinoma, female, left (HCC)- Primary documented in this encounter Advance [...] and were consensually agreed upon. Care Teams Engineering Psychologist Relationship Specialty Start Date End Date Favian Castellon DO [address] [place] [address] PCP - General Family Medicine 11/05/19 documented as of this encounter"
--- OUTSIDE RECORDS SUMMARY | 2023-08-22 17:24 | External Medical Summary | Summary of Care ---
Author Name Unknown Organization [facility] Address [address] [place] [address] Phone [phone] Care Team Providers Care Tour Bus Driver/Guide Name Role Phone Favian Castellon DO Primary Care Provider Reason for Visit * Reason Onset Date Comments Genetic Counseling 07/08/2023 Referral Encounter Details Date Type Department Care Team Description 07/08[facility]2023 [facility] [address] [place] [address] Radha Perkins CHRA Genetic Counseling (Referral) Allergies No known active allergiesdocumented as of this encounter (statuses as of 07/08/2023) Medications Medication Sig Dispensed Refills Start Date [...] 180 Tablet 3 08/16/2022 Active Dexcom G6 Inbound Sales Consultant Device Use as directed . Use to [...] 10/29/2022 Active Vitamin D (Ergocalciferol) 1.25 MG (60219 UT) Oral Capsule (Drisdol) Take 1 capsule [...] as of this encounter (statuses as of 07/08/2023) Active Problems Problem Noted Date MDD (major [...] as of this encounter (statuses as of 07/08/2023) Resolved Problems Problem Noted Date Resolved Date [...] as of this encounter (statuses as of 07/08/2023) Immunizations Name Administration Dates Next Due COVID-19 mRNA, LNP-s, No Pre serve, 2-Dose Series (Pfizer) 08/15/2021,01/23/2021,12/29/2020 Hepatitis B, 20+ yrs 06/29/2015,01/19/2015,01/19 Pneumococcal Conjugate Vacci ne, 20-valent ([id number]) 06/27/2022 Pneumococcal Polysaccharide PPV23 (Pneumovax) 02/10/2007 Season Influenza, Cell Culte r, 18+ Yrs, With Preserv (Flucelvax) 07/18/2017 Seasonal Influenza, PF, 6 mo ns & Above, IM , (Flulaval) 10/13/2022,08/17/2020,09/14/2018 Seasonal Influenza, Quadriva lent, No Preserve, Mdck [...] Encounters Date Type Specialty Care Team Description 07/14/2023 Hospital Encounter Radiology 07/18/2023 Appointment Radiology 07/21/2023 Office Visit Hematology Oncology Eleuterio Zapata MD [address] [place] [address] 09/09/2023 Office Visit Neurology Sommer Che PA-C [address] [facility], [place] [address] 09/24/2023 Office Visit Pharmacy [facility] [place] [address] [place] [address] 01/20/2024 Office Visit Family Medicine Favian Castellon DO [address] [place] [address] Scheduled Procedures Name Priority Associated Diagnoses Date/Ti me COLONOSCOPY FLEXIBLE PROXIMAL DIAGNOSTIC Recall History of colon polyps Health Maintenance Due Date Last Done Comments COVID-19 Vaccine (4 - Pfizer series) 10/10/2021 08/15/2021, 01/23/2021, 12/29/2020 DIABETES-EYE EXAM 05/31/2023 05/31/2022, , 08/11/2020, Additional history exists Influenza Vaccine (FLU shot) (#1) 2023 10/13/2022, 08/17/2020, 07/01/2019, Additional history exists Depression Screening 10/29/2023 10/29/2022 HbA1c 12/23/2023 06/24/2023, 03/13, 01/07/2023, Additional history exists Albumin/Creatinine Ratio 01/08/2024 023, 06/26/2022, 01/02/2022, Additional history exists TSH 01/08/2024 01/07/2023, 06/13, 07/03/2021, Additional history exists Diabetic Foot Exam 05/13/2024 05/13/2023, 0 04/23/2022, 04/24/2021, Additional history exists GFR 05/13/2024 05/13/2023, 0305/2023, 06/26/2022, Additional history exists Mammogram 05/29/2024 05/29/2023, 05/13, 04/10/2022, Additional history exists DXA Scan 12/18/2024 12/18/2022, 10/02/2018 COLONOSCOPY-EVERY 3 YRS AGES 18-100 08/23/2025 08/23/2022, 08/23/2022, 07/20/2019, Additional history exists Lipid Panel 01/08/2028 01/07/2023, 06/13, 01/02/2022, Additional history exists DTaP,Tdap,and Td Vaccines (3 - Td or Tdap) 03/16/2029 03/16/2019, 12/26/2008 Hepatitis B Completed 06/29/2015, 06/2015, 01/19/2014 Pap Smear Discontinued 09/19/2020, 10/2016, 09/25/2012, Additional history exists Zoster Vaccines Completed 04/23/2022, 10/25/2021 Pneumococcal Vaccine: 65+ Years Completed 06/27/2022, 02/10/2007 VITAMIN D LEVEL ONCE IN A LIFETIME-USE SMARTSET# 60732 Completed 02/14/2023, 09/15/2019, 01/21/2019, Additional history exists GARDASIL-HPV IMMUNIZATION SERIES Aged Out No longer eligible based on patient's age to complete this topic HIV Screening Discontinued MENINGOCOCCAL (MENACTRA/MENVEO) Aged Out No longer eligible based on patient's age to complete this topic documented as of this encounter Medical Devices Implanted Type Area Aircraft Pilot Device Identifier Shelf Expiration Date Model / Serial / Lot Lens 24.0 Mx60e - [id number] - [id number] Implanted:Qty: 1 on 04/30/2018 by Martin Donnelly MD at OR [facility] Left: Eye [employer] LOMB 01/10/2021 [id number]-16.0 / [id number] / [id number] Mx60 +23.0d Implanted:Qty: 1 on 05/12/2018 by Martin Donnelly MD at OR [facility] Right: Eye 07/12/2020 [id number] / [id number] / [id number] Duraclip 16mm Xlg Repostn - [id number] Implanted:Qty: 2 on 08/23/2022 by Sudhakar Martell MD at [facility] [employer] [facility] 11/28/2023 [id number] / / documented as of this encounter [...] and were consensually agreed upon. Care Teams Tour Bus Driver/Guide Relationship Specialty Start Date End Date Favian Castellon DO [address] [place] [address] PCP - General Family Medicine 11/05/19 documented as of this encounter
--- OUTSIDE RECORDS SUMMARY | 2023-08-22 17:24 | External Medical Summary | Summary of Care ---
Author Name Unknown Organization [facility] Address [address] [facility] [place] [address] Phone [phone] Care Team Providers Care Picture Painter Name Role Phone Favian Castellon DO Primary Care Provider Reason for Visit * Reason Onset Date Comments Pre Cert/Prior Auth 07/17/2023 Peer to peer needed for PET Encounter Details Date Type Department Care Team Description 07/17/2023 Telephone Hematology/Oncology [facility] [address] [place] [address] Outpatient, Precert DO NOT CHANGE - JS [...] 180 Tablet 3 08/16/2022 Active Dexcom G6 Patch Sander Device Use as directed . Use to [...] 10/29/2022 Active Vitamin D (Ergocalciferol) 1.25 MG (83864 UT) Oral Capsule (Drisdol) Take 1 capsule [...] yrs 06/29/2015,01/19/2015,01/19 Pneumococcal Conjugate Vacci ne, 20-valent ([id number]) 06/27/2022 Pneumococcal Polysaccharide PPV23 (Pneumovax) 02/10/2007 SEASONAL [...] PM EDT Called [employer] and spoke to field representative, gave number #[phone] for phone call. Cannot schedule peer to peer, Dr. Zapata needs to call today. Dr. Zapata: Please call and reference tracking #[id number] for denial of PET CT that is scheduled for tomorrow at [facility]. Also sent TT to Dr. Zapata to notify since he is at [facility] today. * Telephone Encounter - Alisson DONAVAN Padron - 07/17/2023 12:12 PM EDT The PET SCAN requested for Aixa Cruz is currently awaiting Bvge-up-Twkl Review with [employer]. We kindly request a Nurse, [place]UD[place], [place], or Physician, call and reference tracking #[id number] to engage in a discussion with a Physician Reviewer to obtain the necessary authorization. PT IS COMING IN TOMORROW 07/18 Based on the clinical documentation provided, the approval of the requested imaging study is contingent upon the completion of a Zecm-fi-Qrkr Review. We urge you to initiate this review process promptly, adhering to any specified timeframes, or at your earliest convenience if no specific timeframe has been provided. In the event that a Kvfz-zg-Atby Review cannot be conducted, we kindly request [...] Visit Hematology Oncology Eleuterio Zapata MD [address] [place] [address] 07/23/2023 Office Visit General Surgery Robi Geiger MD [address] [place] [address] 09/24/2023 Office Visit Pharmacy [facility] [address] [place] [address] 10/31/2023 Office Visit Neurology Sommer Che PA-C [address] [facility] [place] [address] 12/19/2023 Telemedicine Hematology Oncology Alisson [place], MS [address] [place] [address] 01/20/2024 Office Visit Family Medicine Favian Castellon DO [address] [place] [address] Scheduled Procedures Name Priority Associated Diagnoses Date/Ti [...] D LEVEL ONCE IN A LIFETIME-USE SMARTSET# 32903 Completed 02/14/2023, 09/15/2019, 01/21/2019, Additional history exists GARDASIL-HPV IMMUNIZATION SERIES Aged Out No longer eligible based on patient's age to complete this topic HIV Screening Discontinued MENINGOCOCCAL (MENACTRA/MENVEO) Aged Out No longer eligible based on patient's age to complete this topic documented as of this encounter Medical Devices Implanted Type Area School Bus Technician Device Identifier Shelf Expiration Date Model / Serial / Lot Lens 24.0 Mx60e - [id number] - [id number] Implanted:Qty: 1 on 04/30/2018 by Martin Donnelly MD at OR [facility] Left: Eye BAUSCH [employer] LOMB 01/10/2021 [id number]-91.0 / [id number] / [id number] Mx60 +23.0d Implanted:Qty: 1 on 05/12/2018 by Martin Donnelly MD at OR [facility] Right: Eye 07/12/2020 [id number] / [id number] / [id number] Duraclip 16mm Xlg Repostn - [id number] Implanted:Qty: 2 on 08/23/2022 by Sudhakar Martell MD at ENDOSCOPY [facility] [employer]ESS[employer] 11/28/2023 [id number] / / documented as of this encounter [...] and were consensually agreed upon. Care Teams Picture Painter Relationship Specialty Start Date End Date Favian Castellon DO [address] [place] [address] PCP - General Family Medicine 11/05/19 documented as of this encounter
--- OUTSIDE RECORDS SUMMARY | 2023-08-22 17:24 | External Medical Summary | Summary of Care ---
Author Name Unknown Organization [facility] Address [address] [place] [facility] [place] [address] Phone [phone] Care Team Providers Care [employer] Teacher Name Role Phone Favian Castellon Primary Care Provider Reason for Referral * Precert (Within 10 days (routine)) - Authorized Specialty Diagnoses / Procedures Referred By Contac t Referred To Contact Radiology Diagnoses Malignant neoplasm of overlapping sites of left female breast, unspecified estrogen receptor status (HCC) Procedures MRI BREAST BILATERAL W WO CONTRAST Robi Geiger MD [address] [place] [address] Referral ID Status Reason Start Date Expiration Date V isits Requested Visits Authorized [id number] Authorized Precert 07/02/2023 08/01/2023 999 999 Reason for Visit * Precert (Within 10 days (routine)) - Authorized Specialty Diagnoses / Procedures Referred By Contac t Referred To Contact Radiology Diagnoses Malignant neoplasm of overlapping sites of left female breast, unspecified estrogen receptor status (HCC) Procedures MRI BREAST BILATERAL W WO CONTRAST Robi Geiger MD [address] [place] [address] Referral ID Status Reason Start Date Expiration Date V isits Requested Visits Authorized [id number] Authorized Precert 07/02/2023 08/01/2023 999 999 Encounter Details Date Type Department Care Team Description 07/14/2023 Hospital Encounter Radiology, [address] [place] [address] Arrived Allergies No known active allergiesdocumented as of this encounter (statuses as of 07/15/2023) Medications Medication Sig Dispensed Refills Start Date [...] 180 Tablet 3 08/16/2022 Active Dexcom G6 Commercial Art Instructor Device Use as directed . Use to [...] 10/29/2022 Active Vitamin D (Ergocalciferol) 1.25 MG (79485 UT) Oral Capsule (Drisdol) Take 1 capsule [...] as of this encounter (statuses as of 07/15/2023) Active Problems Problem Noted Date MDD (major [...] as of this encounter (statuses as of 07/15/2023) Resolved Problems Problem Noted Date Resolved Date [...] as of this encounter (statuses as of 07/15/2023) Immunizations Name Administration Dates Next Due COVID-19 mRNA, LNP-s, No Pre serve, 2-Dose Series ([employer]) 08/15/2021,01/23/2021,12/29/2020 Hepatitis B, 20+ yrs 06/29/2015,01/19/2015,01/19 Pneumococcal Conjugate Vacci ne, 20-valent ([id number]) 06/27/2022 Pneumococcal Polysaccharide PPV23 (Pneumovax) 02/10/2007 SEASONAL [...] Date Type Specialty Care Team Description 07/18/2023 Appointment Radiology 07/21/2023 Office Visit Hematology Oncology Eleuterio Zapata MD [address] [facility] [place] [address] 09/24/2023 Office Visit Pharmacy [facility] [place] [facility] [place] [address] 10/31/2023 Office Visit Neurology Sommer Che PA-C [address] [place] [address] 12/19/2023 Telemedicine Hematology Oncology Alisson Waters, MS [address] [place] [address] 01/20/2024 Office Visit Family Medicine Favian Castellon DO [address] [place] [address] Pending Results Name Type Priority Associated Diagnoses Date /Time MRI BREAST BILATERAL W WO CONTRAST Medical Imaging Routine Malignant neoplasm of overlapping sites of left female breast, unspecified estrogen receptor status (HCC) 07/14/2023 9:51 AM EDT Scheduled Orders Name Type Priority Associated Diagnoses Orde r Schedule MRI BREAST BILATERAL W WO CONTRAST Medical Imaging Routine Malignant neoplasm of overlapping sites of left female breast, unspecified estrogen receptor status (HCC) 1 Occurrences starting 07/14/2023 until 07/14/2023 Scheduled Procedures Name Priority Associated Diagnoses Date/Ti [...] D LEVEL ONCE IN A LIFETIME-USE SMARTSET# 31390 Completed 02/14/2023, 09/15/2019, 01/21/2019, Additional history exists GARDASIL-HPV IMMUNIZATION SERIES Aged Out No longer eligible based on patient's age to complete this topic HIV Screening Discontinued MENINGOCOCCAL (MENACTRA/MENVEO) Aged Out No longer eligible based on patient's age to complete this topic documented as of this encounter Medical Devices Implanted Type Area Investment Accountant Device Identifier Shelf Expiration Date Model / Serial / Lot Lens 24.0 Mx60e - [id number] - [id number] Implanted:Qty: 1 on 04/30/2018 by Martin Donnelly MD at OR [facility] Left: Eye BAUSCH & LOMB 01/10/2021 [id number]-25.0 / [id number] / [id number] Mx60 +23.0d Implanted:Qty: 1 on 05/12/2018 by Martin Donnelly MD at OR [facility] Right: Eye 07/12/2020 [id number] / [id number] / [id number] Duraclip 16mm Xlg Repostn - [id number] Implanted:Qty: 2 on 08/23/2022 by Sudhakar Martell MD at ENDOSCOPY [facility] [employer]ing JESSICA 11/28/2023 [id number] / / documented as of this encounter Visit Diagnoses Diagnosis Malignant neoplasm of overlapping sites of left female breast, unspecified estrogen receptor status (HCC) documented in this encounter Administered Medications Inactive Administered Medications - up to 3 most recent administrations Medication Order MAR Action Action Date Dose Rate Site gadobutrol (Gadavist) inj 7.6 mL 7.6 mL (rounded from 7.61 mL = 0.1 mL/kg 76.1 kg), Intravenous, ONCE, On Fri07/14/23 at 0933, For 1 dose, Radiology Medication Routing (Non-IR) Given 07/14/2023 9:27 AM EDT 10 mL documented in this encounter Advance Directives Latest [...] and were consensually agreed upon. Care Teams [employer] Teacher Relationship Specialty Start Date End Date Favian Castellon DO [address] [place] [address] PCP - General Family Medicine 11/05/19 documented as of this encounter
--- OUTSIDE RECORDS SUMMARY | 2023-08-22 17:24 | External Medical Summary | Summary of Care ---
Author Name Unknown Organization [facility] Address [address] [facility] [place] [address] Phone [phone] Care Team Providers Care Screwhead Polisher Name Role Phone Favian Castellon DO Primary Care Provider Reason for Visit * Reason Onset Date Comments Appointment 07/08/2023 Encounter Details Date Type Department Care Team Description 07/08/2023 Telephone Hematology/Oncology Sergio Zavala [place] [address] [place] [address] Eleuterio Zapata MD [address] [place] [address] Appointment Allergies No known active allergiesdocumented as of [...] 180 Tablet 3 08/16/2022 Active Dexcom G6 Ict Support Engineer Device Use as directed . Use to [...] 10/29/2022 Active Vitamin D (Ergocalciferol) 1.25 MG (25571 UT) Oral Capsule (Drisdol) Take 1 capsule [...] yrs 06/29/2015,01/19/2015,01/19 Pneumococcal Conjugate Vacci ne, 20-valent ([id number]) 06/27/2022 Pneumococcal Polysaccharide PPV23 (Pneumovax) 02/10/2007 Season [...] encounter Miscellaneous Notes * Telephone Encounter - DONAVAN Vargas - 07/08/2023 12:08 PM EDT Patient scheduled for a PET/CT SCAN @ [facility] for 07/18/23 @ 8:45am. Patient given prep instructions. documented in this encounter Plan of Treatment Upcoming Encounters Date Type Specialty Care Team Description 07/14/2023 Hospital Encounter Radiology 07/18/2023 Appointment Radiology 07/21/2023 Office Visit Hematology Oncology Eleuterio Zapata MD [address] [place] [address] 09/09/2023 Office Visit Neurology Sommer Che PA-C [address] [place] [address] 09/24/2023 Office Visit Pharmacy [facility] [place] [address] [place] [address] 01/20/2024 Office Visit Family Medicine Favian Castellon DO [address] [place] [address] Scheduled Procedures Name Priority Associated Diagnoses Date/Ti [...] D LEVEL ONCE IN A LIFETIME-USE SMARTSET# [id number] Completed 02/14/2023, 09/15/2019, 01/21/2019, Additional history exists GARDASIL-HPV IMMUNIZATION SERIES Aged Out No longer eligible based on patient's age to complete this topic HIV Screening Discontinued MENINGOCOCCAL (MENACTRA/MENVEO) Aged Out No longer eligible based on patient's age to complete this topic documented as of this encounter Medical Devices Implanted Type Area Staff Research Associate Device Identifier Shelf Expiration Date Model / Serial / Lot Lens 24.0 Mx60e - [id number] - [id number] Implanted:Qty: 1 on 04/30/2018 by Martin Donnelly MD at OR [facility] Left: Eye BAUSCH & LOMB 01/10/2021 [id number]-24.0 / [id number] / [id number] Mx60 +23.0d Implanted:Qty: 1 on 05/12/2018 by Martin Donnelly MD at OR [facility] Right: Eye 07/12/2020 [id number] / [id number] / [id number] Duraclip 16mm Xlg Repostn - [id number] Implanted:Qty: 2 on 08/23/2022 by Sudhakar Martell MD at [facility] [employer] JESSICA 11/28/2023 [id number] / / documented as of this encounter [...] and were consensually agreed upon. Care Teams Screwhead Polisher Relationship Specialty Start Date End Date Favian Castellon DO [address] [place] [address] PCP - General Family Medicine 11/05/19 documented as of this encounter
--- OUTSIDE RECORDS SUMMARY | 2023-08-22 17:24 | External Medical Summary | Summary of Care ---
Author Name Unknown Organization [facility] Address [address] [place] [address] Phone [phone] Care Team Providers Care Crystal Mounter Name Role Phone Favian Castellon DO Primary Care Provider Reason for Referral * Evaluate & Treat - Unlimited Visits (Within 10 days (routine)) - Pending Review Specialty Diagnoses / Procedures Referred By Suellen mercer Referred To Contact Medical Genetics / Hematology Oncology Diagnoses Breast carcinoma, female, left (HCC) Eleuterio Zapata MD [address] [place] [address] Referral ID Status Reason Start Date Expiration Date Visits Requested Visits Authorized [id number] Pending Review Specialty Services Required 07/08/2023 999 999 Question Answer Referral Priority Within 10 days (routine) Is this referral request related to one of the following genetics sub-specialties? If unsure of category, use Medical Genetics Ask-A-Doc. Cancer Personal history of cancer? Yes Type of cancer and age at diagnosis: Breast Family history of cancer? Yes Describe family history of cancer: Mother amrbella ca * Precert (Within 10 days (routine)) - Pending Review Specialty Diagnoses / Procedures Referred By Suellen mercer Referred To Contact Radiology Diagnoses Breast carcinoma, female, left (HCC) Procedures PET CT SKULL BASE TO MID-THIGH Eleuterio Zapata MD [address] [place] [address] Referral ID Status Reason Start Date Expiration Date V isits Requested Visits Authorized [id number] Pending Review 07/15/2023 999 999 Reason for Visit * Reason Comments Consultation Consultation - Hernandez rodriguez neoplasm of Overlapping sites of the left breast * Evaluate & Treat - Unlimited Visits (Within 3 days (urgent)) - Pending Review Specialty Diagnoses / Procedures Referred By Suellen mercer Referred To Contact Hematology/Oncology / Hematology Oncology Diagnoses Malignant neoplasm of overlapping sites of left female breast, unspecified estrogen receptor status (HCC) Robi Geiger MD [address] [place] [address] Referral ID Status Reason Start Date Expiration Date Visits Requested Visits Authorized [id number] Pending Review Specialty Services Required 07/02/2023 999 999 Encounter Details Date Type Department Care Team Description 07/08/2023 Office Visit [facility]ology[facility] [place] [address] [facility] [place] [address] Eleuterio Zapata MD [address] [facility] [place] [address] Breast carcinoma, female, left (HCC)* Allergies No [...] 180 Tablet 3 08/16/2022 Active Dexcom G6 Physical Education Teacher Device Use as directed . Use [...] 10/29/2022 Active Vitamin D (Ergocalciferol) 1.25 MG (99656 UT) Oral Capsule (Drisdol) Take 1 capsule [...] Lipid Taxonomy. HTN, goal below 140/90 12/20/2004 11/25/200 9 FAMILY HX-BREAST MALIG 10/01/2001 1 Other otosclerosis 10/31/2020 documented as of this encounter (statuses as of 07/08/2023) Immunizations Name Administration Dates Next Due COVID-19 mRNA, LNP-s, No Pre serve, 2-Dose Series (Pfizer) 08/15/2021,01/23/2021,12/29/2020 Hepatitis B, 20+ yrs 06/29/2015,01/19/2015,01/19 Pneumococcal Conjugate Vacci ne, 20-valent ([id number]) 06/27/2022 Pneumococcal Polysaccharide PPV23 (Pneumovax) 02/10/2007 Season [...] Sign Reading Time Taken Comments Blood Pressure 138/79 07/08/2023 11:26 AM EDT Pulse 83 07/08/2023 11:26 AM EDT Temperature 36.9 C (98.4 F) 07/08/2023 1 1:26 AM EDT Respiratory Rate 16 07/08/2023 11:2 6 AM EDT Oxygen Saturation 97% 07/08/2023 11: 26 AM EDT Inhaled Oxygen Concentration - - Weight 76.1 kg (167 lb 11.2 oz) 023 11:26 AM EDT Height 151.8 cm (4' 11.75") 07/08/2023 11:26 AM EDT Body Mass Index 33.03 07/08/2023 11:26 AM EDT documented in this encounter Progress Notes * Eleuterio Zapata MD - 07/08/2023 11:36 AM EDT Outpatient Consult Note Data Source: Patient, Epic record. 07/08/2023 11:36 AM Aixa Elie Cruz [id number] 67 year old DO Robi Martínez MD Patient Encounter: HEMATOLOGY/ONCOLOGY [facility] Reason for consult: Left breast cancer, pathology consistent with complex cystic lesion with the small detached fragments of adenocarcinoma, ER/MN and HER2 Musa negative. She shani clinically stage T2 N0 disease. HPI: 67-year-old female with a past medical history significant for dyslipidemia, hypertension and diabetes was referred with the above diagnosis. She underwent a mammogram on 05/28/2022 which shows the left breast is heterogeneously dense, which may obscure small masses. There is a 28 mm mass within the left upper outer quadrant breast at area of palpable concern. Targeted ultrasound demonstrates a corresponding simple cyst within the left breast 2 o'clock 1 cm from the nipple measuring 23 x 16 x 26 mm. She had follow-up ultrasound and mammogram done on 05/29/2023 which revealed 43 mm x 33 mm x 48 mm mass at the upper outer middle position, no enlarged lymph nodes in the axillary area. Ultrasound-guided core biopsy was done on 06/24/2023 and pathology is consistent with complex cystic mass core biopsy with few small detached fragments of adenocarcinoma, ER/MN and HER2 Musa negative. Final Diagnosis A. Left breast, 2:00 complex cystic lesion, core biopsy: Cores of breast tissue with few small detached fragments of adenocarcinoma Estrogen Receptor (ER) protein expression is NEGATIVE Progesterone Receptor (MN) protein expression is NEGATIVE HER2 oncoprotein expression [...] breast cancer at the age of 74. Past Medical History: Diagnosis Date Depression with [...] WEIGHT GAIN 180 Tablet 3 Dexcom G6 Physical Education Teacher Device Use as directed . Use [...] Tablet 3 Vitamin D (Ergocalciferol) 1.25 MG (31929 UT) Oral Capsule (Drisdol) Take 1 capsule [...] Subcutaneous Solution Pen-injector (Dulaglutide) INJECT 1 PEN SUBCUTANEOUSLYONCE A WEEK 4 mL 3 Trulicity 4.5 MG/0.5ML Subcutaneous Solution Pen-injector (Dulaglutide) Inject 1 pen once weekly 6 mL 3 No current facility-administered medications for this visit. Social History Socioeconomic History Marital status: Spouse [...] on file Housing Stability: Not on file Family History Problem Relation Age of Onset Neurological Disorder Father seizures, hearing loss Hearing loss Father Heart Disorder Mother CABG age 72, lifelong tachycardias Hypertension Mother Diabetes Mother Arthritis Mother Breast Cancer Mother 72 Hearing loss Mother Heart Disorder Grandfather (Paternal) ID Hearing loss Grandfather (Paternal) Stroke Grandmother (Maternal) Hearing loss Sister Hearing loss Brother Hearing loss Grandfather (Maternal) Asthma Son REVIEW OF SYSTEMS: General: No Fever, chills, [...] bleeding Genitourinary: Denies Hematuria or dysuria Musculoskeletal: No bone pain Skin: No skin rash or lesions noted Neurologic: No numbness, weakness, neuropathic pain or change in cognitive function Psychiatric: No vegetative signs of depression Endocrine: No symptoms of hypothyroidism or hyperglycemia Hematologic: No bleeding or lymph nodes noted As mentioned above, all other systems were reviewed in full and are unremarkable. Review of patient's allergies indicates: No Known Allergies PHYSICAL EXAMINATION: General Appearance: Healthy appearing patient in no acute distress BP 138/79 (BP Site: Left Arm, BP Position: Sitting, BP Cuff Size: Regular) | Pulse 83 | Temp 36.9 C (98.4 F) (Oral) | Resp 16 | Ht 1.518 m (4' 11.75") | Wt 76.1 kg (167 lb 11.2 oz) | LMP 03/13/2011 | SpO2 97% | BMI 33.03 kg/m | BSA 1.79 m Vitals were reviewed. HEENT: No oral or pharyngeal masses, ulceration or thrush noted, no sinus tenderness. Neck is supple with no thyromegaly or JVD noted. Lymph Nodes: No lymphadenopathy noted in the occipital, pre and post auricular, cervical, supra andinfraclavicular, axillary, epitrochlear, inguinal, and popliteal region. Lungs/Thorax: Clear to auscultation, no accessory muscles of respiration being used. Heart: Regular rate and rhythm, normal S1, S2. Abdomen: Soft, nontender, bowel sounds present, no appreciable hepatosplenomegaly, no palpable masses Extremeties: Good pulses bilaterally, no peripheral edema. Skin: Normal skin tone with no rash, petechiae, ecchymosis noted. Musculoskeletal: No pain on palpation over bony [...] with small few detached fragments of adenocarcinoma. ER/MN and HER2 Musa negative. Clinically patient has stage T2 N0 disease. Discussed with Dr. Geiger about the ultrasound finding. Patient is scheduled for the MRI of the breast on 07/14/2023 to further clarify the cystic/solid component of the tumor. I will also request a PET scan to rule out any metastasis. I have also ask pathologist for his opinion about repeat biopsy. The options of treatment include surgery upfront followed by the adjuvant chemotherapy which will give more information about the pathology and the status of the markers including estrogen receptors/progesterone receptors and HER2 Musa. If the MRI shows mostly solid component then she will benefit with neoadjuvant chemotherapy. Discussed with the patient and family including , son and daughter in-law about the diagnosis and the pathology finding. Also discussed the finding of the ultrasound. Patient will be re-evaluated by Dr. Geiger after the MRI of the breast. I will also request the PET scan to rule out any metastatic disease. PLAN: As above. Return to clinic for follow-up after the MRI and PET scan on 07/21/2023. The patient voiced understanding of all of [...] in this encounter Nursing Notes * Jackie Castellon, CLINICAL DATA MANAGEMENT DIRECTOR - 07/08/2023 11:27 AM EDT Patient identifed by name and birthdate Do you have any concerns about pain management for today's visit? No Living Will or Advance Directive for Health Care as noted on the problem list. [facility] is a way you can talk to your provider on line through e-mail. Would you like to sign up? I can activate it for you? ALREADY ACTIVE Filed Vitals: 07/08/23 1126 BP: 138/79 Pulse: 83 Resp: 16 Temp: 36.9 C (98.4 F) TempSrc: Oral SpO2: 97% Weight: 76.1 kg (167 lb 11.2 oz) Height: 1.518 m (4' 11.75") Patient was instructed to not get up [...] Visit Hematology Oncology Eleuterio Zapata MD [address] [facility] [place] [address] 09/09/2023 Office Visit Neurology Sommer Che PA-C [address] [facility] [place] [address] 09/24/2023 Office Visit Pharmacy [facility] [place] [address] [place] [address] 01/20/2024 Office Visit Family Medicine Favian Castellon DO [address] [place] [address] Scheduled Orders Name Type Priority Associated Diagnoses Orde r Schedule PET CT SKULL BASE TO MID-THIGH Medical Imaging Routine Breast carcinoma, female, left (HCC) Expected: 07/15/2023, Expires: 08/07/2024 Scheduled Procedures Name Priority Associated Diagnoses Date/Ti me COLONOSCOPY FLEXIBLE PROXIMAL DIAGNOSTIC Recall History of colon polyps Scheduled Referrals Name Type Priority Associated Diagnoses Orde r Schedule GENETICS REFERRAL OP Referral Within 10 days (routine) Breast carcinoma, female, left (HCC) Ordered: 07/08/2023 Health Maintenance Due Date Last Done Comments [...] 040 06/2015, 01/19/2014 Pap Smear Discontinued 09/19/2020, 0610/2016, 09/25/2012, Additional history exists Zoster Vaccines Completed 04/23/2022, 10/25/2021 Pneumococcal Vaccine: 65+ Years Completed 06/27/2022, 02/10/2007 VITAMIN D LEVEL ONCE IN A LIFETIME-USE SMARTSET# 26517 Completed 02/14/2023, 09/15/2019, 01/21/2019, Additional history exists GARDASIL-HPV IMMUNIZATION SERIES Aged Out No longer eligible based on patient's age to complete this topic HIV Screening Discontinued MENINGOCOCCAL (MENACTRA/MENVEO) Aged Out No longer eligible based on patient's age to complete this topic documented as of this encounter Medical Devices Implanted Type Area Bricklayer Paving Brick Device Identifier Shelf Expiration Date Model / Serial / Lot Lens 24.0 Mx60e - [id number] - [id number] Implanted:Qty: 1 on 04/30/2018 by Martin Donnelly MD at OR [facility] Left: Eye BAUSCH & LOMB 01/10/2021 [id number]-94.0 / [id number] / [id number] Mx60 +23.0d Implanted:Qty: 1 on 05/12/2018 by Martin Donnelly MD at OR [facility] Right: Eye 07/12/2020 [id number] / [id number] / [id number] Duraclip 16mm Xlg Repostn - [id number] Implanted:Qty: 2 on 08/23/2022 by Sudhakar Martell MD at ENDOSCOPY [facility] [employer] JESSICA 11/28/2023 [id number] / / documented as of this encounter [...] and were consensually agreed upon. Care Teams Crystal Mounter Relationship Specialty Start Date End Date Favian Castellon DO [address] [facility] [place] [address] PCP - General Family Medicine 11/05/19 documented as of this encounter
--- OUTSIDE RECORDS SUMMARY | 2023-08-22 17:24 | External Medical Summary | Summary of Care ---
Author Name Unknown Organization [facility] Address [address] [place] [address] Phone [phone] Care Team Providers Care Director Of Federal Sales Name Role Phone Favian Castellon DO Primary Care Provider Reason for Referral * Evaluate & Treat - Unlimited Visits (Within 3 days (urgent)) - Pending Review Specialty Diagnoses / Procedures Referred By Contac t Referred To Contact Hematology/Oncology / Hematology Oncology Diagnoses Malignant neoplasm of overlapping sites of left female breast, unspecified estrogen receptor status (HCC) Robi Geiger MD [address] [address] Referral ID Status Reason Start Date Expiration Date Visits Requested Visits Authorized [id number] Pending Review Specialty Services Required 07/02/2023 999 999 Question Answer Referral Priority Within 3 days (urgent) Reason for Referral Malignant Oncology (Solid Organ Cancer) Comments Locally advanced left breast cancer * Precert (Within 10 days (routine)) - Authorized Specialty Diagnoses / Procedures Referred By Contac t Referred To Contact Radiology Diagnoses Malignant neoplasm of overlapping sites of left female breast, unspecified estrogen receptor status (HCC) Procedures MRI BREAST BILATERAL W WO CONTRAST Robi Geiger MD [address] [place] [address] Referral ID Status Reason Start Date Expiration Date V isits Requested Visits Authorized [id number] Authorized Precert 07/02/2023 08/01/2023 999 999 Reason for Visit * Reason Comments Follow Up Hx HRBC. A cyst on l eft breast increased. Encounter Details Date Type Department Care Team Description 07/02/2023 Office Visit General Surgery, [facility] [address] [place] [address] Robi Geiger MD [address] [place] [address] Malignant neoplasm of overlapping sites of left female breast, unspecified estrogen receptor status (HCC)* Allergies No known active allergiesdocumented as of this encounter (statuses as of 07/02/2023) Medications Medication Sig Dispensed Refills Start Date [...] 180 Tablet 3 2 Active Dexcom G6 Garment Fitter Device Use as directed . Use to [...] 3 Active Vitamin D (Ergocalciferol) 1.25 MG (25893 UT) Oral Capsule (Drisdol) Take 1 capsule [...] ONCE A WEEK 4 mL 3 3 Active Trulicity 4.5 MG/0.5ML Subcutaneous Solution Pen-injector (Dulaglutide) Inject 1 pen once weekly 6 mL 3 3 Active Escitalopram Oxalate 10 MG Oral Tablet (Lexapro)Indication s:MDD (major depressive disorder), recurrent episode, moderate (HCC) Take one tablet by mouth daily for 2-4 weeks, then decrease to a half tablet by mouth daily for 2-4 weeks, then stop the medication 30 Tablet 1 3 07/02/20 23 Discontinu ed(Patient preference /discontin uation) documented as of this encounter (statuses as of 07/02/2023) Active Problems Problem Noted Date MDD (major [...] as of this encounter (statuses as of 07/02/2023) Resolved Problems Problem Noted Date Resolved Date [...] as of this encounter (statuses as of 07/02/2023) Immunizations Name Administration Dates Next Due COVID-19 mRNA, LNP-s, No Pre serve, 2-Dose Series (Pfizer) 08/15/2021,01/23/2021,12/29/2020 Hepatitis B, 20+ yrs 06/29/2015,01/19/2015,01/19 Pneumococcal Conjugate Vacci ne, 20-valent ([id number]) 06/27/2022 Pneumococcal Polysaccharide PPV23 (Pneumovax) 02/10/2007 Season [...] Sign Reading Time Taken Comments Blood Pressure 126/59 07/02/2023 8:39 AM EDT Pulse 62 07/02/2023 8:39 AM EDT Temperature - - Respiratory Rate - - Oxygen Saturation - - Inhaled Oxygen Concentration - - Weight 75.8 kg (167 lb 3.2 oz) 07/02/2023 8:39 A M EDT Height - - Body Mass Index 32.65 08/23/2022 7:43 AM EST documented in this encounter Progress Notes * Robi Geiger MD - 07/02/2023 1:47 PM EDT [facility] Chief Complaint Patient presents with Follow Up Hx HRBC. A cyst on left breast increased. REASON FOR CONSULTATION: Left breast mass HISTORY: Aixa Cruz is a 67 year old year old female who returns following ultrasound-guided needle biopsy of solid portion of large cystic lesion in her left breast. The pathology came back with fragments of adenocarcinoma, favoring breast primary. She denies any new complaints. BREAST HISTORY: Mass: Yes; left upper outer, [...] mammography is recommended for the right breast. MY INTERPRETATION: I have reviewed the films personally with the radiologist and concur with the read. FAMILY HISTORY: [...] performed by Silvestre Max MD at [facility] COLONOSCOPY, DIAGNOSTIC (RECTUM) 07/20/2019 biopsies show adenomatous polyps/recall 3 years/COLONOSCOPY FLEXIBLE PROXIMAL DIAGNOSTIC performed by Sudhakar Martell MD at [facility] COLONOSCOPY, DIAGNOSTIC (RECTUM) 08/23/2022 benign adenomatous polyp, diverticulosis, repeat 3 yrs / COLONOSCOPY FLEXIBLE PROXIMAL DIAGNOSTIC performed by Sudhakar Martell MD at [facility] INJECT DX/THER SUBSTANCE INTERLAMINAR LUMBAR/SACRAL W IMAGE GUIDE 11/05/2021 INJECTION SPINE LUMBAR OR SACRAL performed by Haines Tae An, DO at OR [facility] INJECT DX/THER SUBSTANCE INTERLAMINAR LUMBAR/SACRAL W IMAGE GUIDE 03/20/2022 INJECTION SPINE LUMBAR OR SACRAL performed by Raimundo Tae An, DO at OR [facility] INJECT DX/THER SUBSTANCE INTERLAMINAR LUMBAR/SACRAL W IMAGE GUIDE 11/13/2022 INJECTION SPINE LUMBAR OR SACRAL performed by Raimundo Tae An, DO at OR [facility] INJECT DX/THER SUBSTANCE INTERLAMINAR LUMBAR/SACRAL W IMAGE GUIDE 05/14/2023 INJECTION SPINE LUMBAR OR SACRAL performed by Haines Tae An, DO at OR [facility] PATIENT EDU, LAP-BAND SURGERY REMOVE CATARACT, INSERT LENS PROSTH Left 04/30/2018 left EXTRACAPSULAR CATARACT REMOVAL WITH INTRAOCULAR LENS performed by Martin Donnelly MD at [facility] REMOVE CATARACT, INSERT LENS PROSTH Right 05/12/2018 right EXTRACAPSULAR CATARACT REMOVAL WITH INTRAOCULAR LENS performed by Martin Donnelly MD at [facility] REMOVE TONSILS & ADENOIDS, UNDER [address] REVISION OF MIDDLE EAR BONE Dr. Allred US GUIDED BREAST BIOPSY LEFT Left 06/24/2023 ALLERGIES: Allergies as of 07/02/2023 (No Known Allergies) MEDICATIONS: Current Outpatient Medications [...] WEIGHT GAIN 180 Tablet 3 Dexcom G6 Garment Fitter Device Use as directed . Use to [...] Tablet 3 Vitamin D (Ergocalciferol) 1.25 MG (18456 UT) Oral Capsule (Drisdol) Take 1 capsule [...] no new rashes, no itching PHYSICAL EXAM: Blood pressure 126/59, pulse 62, weight 75.8 kg (167 lb 3.2 oz), last menstrual period 03/13/2011. Constitutional: alert, healthy, well nourished Head: normocephalic, atraumatic Eyes: conjunctiva non-injected, sclera white Extremities: no edema, no skin discoloration Neuro: alert, gait normal, motor normal Skin: no obvious rashes or significant lesions BREAST EXAMINATION Right Breast: No evidence of mass, skin retraction, nipple inversion, Pagets, peau d'orange, arm edema, nipple discharge, palpable axillary adenopathy, or palpable supraclavicular adenopathy. There are no surgical scars. Left Breast: No evidence of skin retraction, nipple inversion, Pagets, peau d'orange, arm edema, nipple discharge, palpable axillary adenopathy, or palpable supraclavicular adenopathy. Evidence of mass, upper outer quadrant, 4 x 4.5 cm, 1-2 o'clock, 2 cm from nipple There are no surgical scars. ASSESSMENT: 67-year-old woman with enlarging mass of the left upper outer quadrant of her breast. Biopsy demonstrates adenocarcinoma. PLAN: I had a long discussion with her concerning the biopsy findings. The cystic lesion measures 4.8 x 4.4 cm, representing what appears to be a locally advanced breast cancer. We will have her undergo breast MRI for further evaluation. We will have her see the medical oncologists for evaluation. Given the size of the lesion, she may be a candidate for neoadjuvant treatment prior to surgery. We will have her return to clinic once the MRI and oncology appointments are complete. She will call with any new or concerning symptoms in the meantime. Robi Geiger MD 07/02/2023 documented in this encounter Nursing Notes * ANYI Ward - 07/02/2023 8:40 AM EDT Chief Complaint Patient presents with Follow Up Hx HRBC. A cyst on left breast increased. Verified patient. No pain, but some sensations in general. documented in this encounter Plan of Treatment Upcoming Encounters Date Type Specialty Care Team Description 07/08/2023 Office Visit Hematology Oncology Eleuterio Zapata MD [address] [facility] [place] [address] 07/14/2023 Appointment Radiology 09/09/2023 Office Visit Neurology Sommer Che PA-C [address] [place] [address] 09/24/2023 Office Visit Pharmacy [facility] [place] [address] [place] [address] 01/20/2024 Office Visit Family Medicine Favian Castellon DO [address] [place] [address] Scheduled Orders Name Type Priority Associated Diagnoses Orde r Schedule MRI BREAST BILATERAL W WO CONTRAST Medical Imaging Routine Malignant neoplasm of overlapping sites of left female breast, unspecified estrogen receptor status (HCC) Expected: 07/02/2023, Expires: 08/01/2024 Scheduled Procedures Name Priority Associated Diagnoses Date/Ti me COLONOSCOPY FLEXIBLE PROXIMAL DIAGNOSTIC Recall History of colon polyps Scheduled Referrals Name Type Priority Associated Diagnoses Orde r Schedule HEMATOLOGY/ONCOLOGY REFERRAL OP Referral Within 3 days (urgent) Malignant neoplasm of overlapping sites of left female breast, unspecified estrogen receptor status (HCC) Ordered: 07/02/2023 Health Maintenance Due Date Last Done Comments [...] 04/0 06/2015, 01/19/2014 Pap Smear Discontinued 09/19/2020, 0610/2016, 09/25/2012, Additional history exists Zoster Vaccines Completed 04/23/2022, 10/25/2021 Pneumococcal Vaccine: 65+ Years Completed 06/27/2022, 02/10/2007 VITAMIN D LEVEL ONCE IN A LIFETIME-USE SMARTSET# 02973 Completed 02/14/2023, 09/15/2019, 01/21/2019, Additional history exists GARDASIL-HPV IMMUNIZATION SERIES Aged Out No longer eligible based on patient's age to complete this topic HIV Screening Discontinued MENINGOCOCCAL (MENACTRA/MENVEO) Aged Out No longer eligible based on patient's age to complete this topic documented as of this encounter Medical Devices Implanted Type Area Technical Support Consultant Device Identifier Shelf Expiration Date Model / Serial / Lot Lens 24.0 Mx60e - [id number] - [id number] Implanted:Qty: 1 on 04/30/2018 by Martin Donnelly MD at OR [facility] Left: Eye [employer] 01/10/2021 [id number]-50.0 / [id number] / [id number] Mx60 +23.0d Implanted:Qty: 1 on 05/12/2018 by Martin Donnelly MD at OR [facility] Right: Eye 07/12/2020 HO5099.0 / [id number] / [id number] Duraclip 16mm Xlg Repostn - [id number] Implanted:Qty: 2 on 08/23/2022 by Sudhakar Martell MD at [facility] [employer] JESSICA 11/28/2023 [id number] / / documented as of this encounter [...] and were consensually agreed upon. Care Teams Director Of Federal Sales Relationship Specialty Start Date End Date Favian Castellon, DO [address] [place] [address] PCP - General Family Medicine 11/05/19 documented as of this encounter
--- OUTSIDE RECORDS SUMMARY | 2023-08-22 17:24 | External Medical Summary | Summary of Care ---
Author Name Unknown Organization [facility] Address [address] [facility] [place] [address] Phone [phone] Care Team Providers Care Telecommunications Equipment Installer Name Role Phone Favian Castellon DO Primary Care Provider Reason for Visit * Reason Onset Date Comments Appointment 07/08/2023 Encounter Details Date Type Department Care Team Description 07/08/2023 Telephone Hematology/Oncology [facility] [place] [address] [place] [address] Eleuterio Zapata MD [address] [place] [address] Appointment Allergies No known active allergiesdocumented as [...] 180 Tablet 3 08/16/2022 Active Dexcom G6 Finisher Card Tender Device Use as directed . Use [...] 10/29/2022 Active Vitamin D (Ergocalciferol) 1.25 MG (38187 UT) Oral Capsule (Drisdol) Take 1 capsule [...] yrs 06/29/2015,01/19/2015,01/19 Pneumococcal Conjugate Vacci ne, 20-valent ([id number]) 06/27/2022 Pneumococcal Polysaccharide PPV23 (Pneumovax) 02/10/2007 Season [...] Telephone Encounter - DONAVAN Vargas - 07/08/2023 12:16 PM EDT Genetics-please contact patient for an appt in regards to Answer Referral Priority Within 10 days (routine) Is this referral request related to one of the following genetics sub- specialties? If unsure of category, use Medical Genetics Ask-A-Doc. Cancer Personal history of cancer? Yes Type of cancer and age at diagnosis: Breast Family history of cancer? Yes Describe family history of cancer: Mother marbella ca Referral (Pending Review) ID: [id number] Created on: 07/08/2023 Referred by Referred to Eleuterio Zapata MD Medical Genetics Thank you documented in this encounter Plan of Treatment Upcoming Encounters Date Type Specialty Care Team Description 07/14/2023 Hospital Encounter Radiology 07/18/2023 Appointment Radiology 07/21/2023 Office Visit Hematology Oncology Eleuterio Zapata MD [address] [place] [address] 09/09/2023 Office Visit Neurology Sommer Che PA-C [address] [place] [address] 09/24/2023 Office Visit Pharmacy [facility] [place] [address] [place] [address] 01/20/2024 Office Visit Family Medicine Favian Castellon DO [address] [place] [address] Scheduled Procedures Name Priority Associated Diagnoses Date/Ti [...] D LEVEL ONCE IN A LIFETIME-USE SMARTSET# 93614 Completed 02/14/2023, 09/15/2019, 01/21/2019, Additional history exists GARDASIL-HPV IMMUNIZATION SERIES Aged Out No longer eligible based on patient's age to complete this topic HIV Screening Discontinued MENINGOCOCCAL (MENACTRA/MENVEO) Aged Out No longer eligible based on patient's age to complete this topic documented as of this encounter Medical Devices Implanted Type Area Technical Sales Director Device Identifier Shelf Expiration Date Model / Serial / Lot Lens 24.0 Mx60e - [id number] - [id number] Implanted:Qty: 1 on 04/30/2018 by Martin Donnelly MD at OR [facility] Left: Eye [employer]OM[employer] 01/10/2021 [id number]-12.0 / [id number] / [id number] Mx60 +23.0d Implanted:Qty: 1 on 05/12/2018 by Martin Donnelly MD at OR [facility] Right: Eye 07/12/2020 DX7623.0 / [id number] / [id number] Duraclip 16mm Xlg Repostn - [id number] Implanted:Qty: 2 on 08/23/2022 by Sudhakar Martell MD at ENDOSCOPY [facility] [employer] JESSICA 11/28/2023 [id number] / / documented as of this encounter [...] and were consensually agreed upon. Care Teams Telecommunications Equipment Installer Relationship Specialty Start Date End Date Favian Castellon DO [address] [place] [address] PCP - General Family Medicine 11/05/19 documented as of this encounter
--- OUTSIDE RECORDS SUMMARY | 2023-08-22 17:25 | External Medical Summary ---
Author Name Unknown Address Unknown Organization K01:[facility] - [address] [place] [address] Laboratory Report Ordering Provider Test Date Status DONOVAN BETANCOURT 06/24/2023 13:47:21 Final Observation Date Value Abnormality Reference (Units ) Status HbA1C 06/24/2023 13:47:21 8.2 Above high normal 4. 0-5.6 (%) Final The use of HbA1c to monitor glycemic status is based on normal hemoglobin and HbA composition. This test should not be used in patients with abnormal hemoglobin that affects the half life of the red blood cell or the in vivo glycation rates. Glucose, estimated average 06/24/2023 13:47:21 189 Above high normal <126 (mg/dL) Bobby murillo Performing Location [facility] - [address] [place] [address]
--- OUTSIDE RECORDS SUMMARY | 2023-08-22 17:25 | External Medical Summary | Summary of Care ---
Author Name Unknown Organization [facility] Address [address] [facility] [place] [address] Phone [phone] Care Team Providers Care Videographer Name Role Phone Favian Castellon DO Primary Care Provider Reason for Visit * Reason Onset Date Comments Medication Refill 06/30/2023 Encounter Details Date Type Department Care Team Description 06/30/2023 Telephone Pharmacy, [facility] [address] [place] [address] Otoniel Marroquin, [facility] [address] [place] [address] Medication Refill Allergies No known active allergiesdocumented as of this encounter (statuses as of 06/30/2023) Medications Medication Sig Dispensed Refills Start Date [...] 180 Tablet 3 2 Active Dexcom G6 Oncology Consultant Device Use as directed . Use [...] 3 Active Vitamin D (Ergocalciferol) 1.25 MG (98679 UT) Oral Capsule (Drisdol) Take 1 capsule [...] AT SUPPER 15 mL 11 3 Active Escitalopram Oxalate 10 MG Oral Tablet (Lexapro)Indication s:MDD (major depressive disorder), recurrent episode, moderate (HCC) Take one tablet by mouth daily for 2-4 weeks, then decrease to a half tablet by mouth daily for 2-4 weeks, then stop the medication 30 Tablet 1 3 Active Trulicity 4.5 MG/0.5ML Subcutaneous Solution Pen-injector (Dulaglutide) Inject 1 pen once weekly 6 mL 3 3 Active Trulicity 4.5 MG/0.5ML Subcutaneous Solution Pen-injector (Dulaglutide) Inject 1 pen once weekly 6 mL 3 2 06/30/20 23 Discontinu ed(Refill) documented as of this encounter (statuses as of 06/30/2023) Active Problems Problem Noted Date MDD (major [...] as of this encounter (statuses as of 06/30/2023) Resolved Problems Problem Noted Date Resolved Date [...] as of this encounter (statuses as of 06/30/2023) Immunizations Name Administration Dates Next Due COVID-19 mRNA, LNP-s, No Pre serve, 2-Dose Series (Pfizer) 08/15/2021,01/23/2021,12/29/2020 Hepatitis B, 20+ yrs 06/29/2015,01/19/2015,01/19 Pneumococcal Conjugate Vacci ne, 20-valent ([id number]) 06/27/2022 Pneumococcal Polysaccharide PPV23 (Pneumovax) 02/10/2007 Season [...] encounter Miscellaneous Notes * Telephone Encounter - Otoniel Marroquin RPh - 06/30/2023 3:25 PM EDT Trulicity order sent. Otoniel Marroquin PharmD Clinical Pharmacist [facility] 06/30/2023 3:30 PM documented in this encounter Plan of Treatment Upcoming Encounters Date Type Specialty Care Team Description 07/02/2023 Office Visit General Surgery Robi Geiger MD [address] [place] [address] 09/09/2023 [facility] [address] 09/24/2023 Office Visit Pharmacy [facility] [place] [address] [place] [address] 01/20/2024 Office Visit Family Medicine Favian Castellon DO [address] [place] [address] Scheduled Procedures Name Priority Associated Diagnoses Date/Ti [...] D LEVEL ONCE IN A LIFETIME-USE SMARTSET# 63136 Completed 02/14/2023, 09/15/2019, 01/21/2019, Additional history exists GARDASIL-HPV IMMUNIZATION SERIES Aged Out No longer eligible based on patient's age to complete this topic HIV Screening Discontinued MENINGOCOCCAL (MENACTRA/MENVEO) Aged Out No longer eligible based on patient's age to complete this topic documented as of this encounter Medical Devices Implanted Type Area Forest Firefighter Device Identifier Shelf Expiration Date Model / Serial / Lot Lens 24.0 Mx60e - [id number] - [id number] Implanted:Qty: 1 on 04/30/2018 by Martin Donnelly MD at OR [facility] Left: Eye [employer]OM[employer] 01/10/2021 [id number]-43.0 / [id number] / [id number] Mx60 +23.0d Implanted:Qty: 1 on 05/12/2018 by Martin Donnlely MD at OR [facility] Right: Eye 07/12/2020 ON7770.0 / [id number] / [id number] Duraclip 16mm Xlg Repostn - [id number] Implanted:Qty: 2 on 08/23/2022 by Sudhakar Martell MD at [facility] [employer] 11/28/2023 [id number] / / documented as of this encounter [...] and were consensually agreed upon. Care Teams Videographer Relationship Specialty Start Date End Date Favian Castellon DO [address] [facility] [place] [address] PCP - General Family Medicine 11/05/19 documented as of this encounter
--- OUTSIDE RECORDS SUMMARY | 2023-08-22 17:25 | External Medical Summary | Summary of Care ---
Author Name Unknown Organization [facility] Address [address] [facility] [place] [address] Phone [phone] Care Team Providers Care Sound Recording Technician Name Role Phone Favian Castellon Primary Care Provider Reason for Visit * Reason Comments Dosage Adjustment In Person (Anticoag Cl inic) Diabetes Follow-Up Encounter Details Date Type Department Care Team Description 06/25/2023 Office Visit Pharmacy, [facility] [address] [facility] [place] [address] [facility] [address] [place] [address] Type 2 diabetes mellitus with hemoglobin A1c goal of less than 8.0% ([facility])* Allergies No known active allergiesdocumented as of this encounter (statuses as of 06/25/2023) Medications Medication Sig Dispensed Refills Start Date [...] Dx E11.9 400 Each 3 01/18/2022 Active Trulicity 4.5 MG/0.5ML Subcutaneous Solution Pen-injector (Dulaglutide) Inject 1 pen once weekly 6 mL 3 03/28/2022 Active Furosemide 20 MG Oral Tablet (Lasix)Indications: Localized edema TAKE 1 TABLET BY MOUTH TWICE DAILY NEEDED FOR FEET SWELLING, FLUID ACCUMULATION, OR WEIGHT GAIN 180 Tablet 3 08/16/2022 Active Dexcom G6 Supply Specialist Device Use as directed . Use to [...] 10/29/2022 Active Vitamin D (Ergocalciferol) 1.25 MG (16788 UT) Oral Capsule (Drisdol) Take 1 capsule [...] AT SUPPER 15 mL 11 05/13/2023 Active Escitalopram Oxalate 10 MG Oral Tablet (Lexapro)Indication s:MDD (major depressive disorder), recurrent episode, moderate (HCC) Take one tablet by mouth daily for 2-4 weeks, then decrease to a half tablet by mouth daily for 2-4 weeks, then stop the medication 30 Tablet 1 05/13/2023 Active documented as of this encounter (statuses as of 06/25/2023) Active Problems Problem Noted Date MDD (major [...] as of this encounter (statuses as of 06/25/2023) Resolved Problems Problem Noted Date Resolved Date [...] as of this encounter (statuses as of 06/25/2023) Immunizations Name Administration Dates Next Due COVID-19 mRNA, LNP-s, No Pre serve, 2-Dose Series (Pfizer) 08/15/2021,01/23/2021,12/29/2020 Hepatitis B, 20+ yrs 06/29/2015,01/19/2015,01/19 Pneumococcal Conjugate Vacci ne, 20-valent (Smumahg19) 06/27/2022 Pneumococcal Polysaccharide PPV23 (Pneumovax) 02/10/2007 Season [...] on file documented as of this encounter Progress Notes * Piperaron Reyez, [facility] - 06/25/2023 8:37 AM EDT Images from the original note were not included. Medication Therapy Disease [facility] - Diabetes Management Progress Note Aixa Cruz, identified by name and date of , is a 67 year old female being seen for diabetes management/education. Patient presents for return diabetic visit. DIABETES: Current diabetic medications: INCREASE: Novolog 5 units with breakfast 10 units with lunch and 20 units with supper Semglee 35 units at bedtime Trulicity 4.5 mg weekly Medication Injection Site: Abdomen Lifestyle: Diet: unchanged Glucose Review/SMBG: Readings obtained from patient device Hypoglycemia: Does your blood sugar go below 70 mg/dL? No Hyperglycemia symptoms present: none Recent Labs Units 06/24/23 1347 03/25/23 1244 01/07/23 0751 HEMOGLOBIN A1C - [facility] % 8.2* 8.4* 8.4* Recent Labs Units 05/13/23 0857 01/07/23 0751 06/26/22 0925 ESTIMATED GLOMERULAR FILTRATION RATE - [facility] mL/min >90 >90 >90 CREATININE - [facility] mg/dL 0.7 0.6 0.6 HYPERTENSION: Patient on ACEi/ARB: yes BP Readings from Last 3 Encounters: 06/06/23 141/77 05/14/23 132/94 05/13/23 122/76 Blood pressure at goal: yes HYPERLIPIDEMIA: Patient is taking moderate or high intensity statin: yes HEALTH MAINTENANCE REVIEW: Health Maintenance Due Topic Date Due COVID-19 Vaccine (4 - Pfizer series) 10/10/2021 DIABETES-EYE EXAM 05/31/2023 Influenza Vaccine (FLU shot) (1) 06/13/2023 ASSESSMENT & PLAN: No diagnosis found. BG Readings - Blood sugars uncontrolled. A1c did improve slightly, still having elevations especially after lunch and dinner. Medications - Reviewed current regimen, patient is adherent to regimen. Recommending increase novolog with lunch and dinner meals. Diet, Exercise, Lifestyle - No significant lifestyle changes since last visit. Discussed with patient . Patient is agreeable to CGM- Dexcom Patient aware to contact clinic if any hypoglycemia before next visit. MEDICATION CHANGES: yes, see below; [facility] pharmacy[facility] Medications: INCREASE: Novolog 5 units with breakfast 15 units with lunch and 25 units with supper Semglee 35 units at bedtime Trulicity 4.5 mg weekly HEALTH MAINTENANCE INTERVENTIONS: Labs: Up to Date Immunizations: due for influenza Foot Exam: Up to Date Eye Exam: Up to Date Annual Wellness Visit: N/A FOLLOW UP: Return to clinic in 12 weeks 09/24/2023 Piper Reyez [facility] Clinical Pharmacist - Hvac Technician [facility] 06/25/2023, 8:37 AM documented in this encounter Plan of Treatment Upcoming Encounters Date Type Specialty Care Team Description 07/02/2023 Office Visit General Surgery Robi Geiger MD [address] [place] [address] 09/09/2023 Office Visit Neurology Sommer Che PA-C [address] [place] [address] 09/24/2023 Office Visit Pharmacy [facility] [place] [address] [place] [address] 01/20/2024 Office Visit Family Medicine Favian Castellon DO [address] [place] [address] Scheduled Procedures Name Priority Associated Diagnoses Date/Ti [...] D LEVEL ONCE IN A LIFETIME-USE SMARTSET# 30304 Completed 02/14/2023, 09/15/2019, 01/21/2019, Additional history exists GARDASIL-HPV IMMUNIZATION SERIES Aged Out No longer eligible based on patient's age to complete this topic HIV Screening Discontinued MENINGOCOCCAL (MENACTRA/MENVEO) Aged Out No longer eligible based on patient's age to complete this topic documented as of this encounter Medical Devices Implanted Type Area Benzol Still Operator Device Identifier Shelf Expiration Date Model / Serial / Lot Lens 24.0 Mx60e - [id number] - [id number] Implanted:Qty: 1 on 04/30/2018 by Martin Donnelly MD at OR [facility] Left: Eye [employer]OM[employer] 01/10/2021 [id number]-95.0 / [id number] / [id number] Mx60 +23.0d Implanted:Qty: 1 on 05/12/2018 by Martin Donnelly MD at OR [facility] Right: Eye 07/12/2020 HC7972.0 / [id number] / [id number] Duraclip 16mm Xlg Repostn - [id number] Implanted:Qty: 2 on 08/23/2022 by Sudhakar Martell MD at ENDOSCOPY [facility] [employer] 11/28/2023 [id number] / / documented as of this encounter Visit Diagnoses Diagnosis Type 2 diabetes mellitus with hemoglobin A1c goal of less than 8.0% (HCC)- Primary documented in this encounter Advance [...] and were consensually agreed upon. Care Teams Sound Recording Technician Relationship Specialty Start Date End Date Favian Castellon DO [address] [place] [address] PCP - General Family Medicine 11/05/19 documented as of this encounter
--- OUTSIDE RECORDS SUMMARY | 2023-08-22 17:25 | External Medical Summary | Summary of Care ---
Author Name Unknown Organization [facility] Address [address] [facility] [place] [address] Phone [phone] Care Team Providers Care Speech Professor Name Role Phone Favian Castellon Primary Care Provider Reason for Visit * Reason Onset Date Comments Appointment 07/02/2023 Encounter Details Date Type Department Care Team Description 07/02/2023 Telephone General Surgery, [facility] [address] [place] [address] Robi Geiger MD [address] [place] [address] Appointment Allergies No known active allergiesdocumented as [...] 180 Tablet 3 08/16/2022 Active Dexcom G6 Flange Machine Operator Device Use as directed . Use [...] 10/29/2022 Active Vitamin D (Ergocalciferol) 1.25 MG (89923 UT) Oral Capsule (Drisdol) Take 1 capsule [...] yrs 06/29/2015,01/19/2015,01/19 Pneumococcal Conjugate Vacci ne, 20-valent ([id number]) 06/27/2022 Pneumococcal Polysaccharide PPV23 (Pneumovax) 02/10/2007 Season [...] Miscellaneous Notes * Telephone Encounter - DONAVAN Major - 07/02/2023 9:31 AM EDT Patient needs scheduled with med/onc. Please call patient and arrange. documented in this encounter Plan of Treatment Upcoming Encounters Date Type Specialty Care Team Description 07/14/2023 Appointment Radiology 09/09/2023 Office Visit Neurology Sommer Che PA-C [address] [place], [place] [address] 09/24/2023 Office Visit Pharmacy [facility] [place] [address] [place] [address] 01/20/2024 Office Visit Family Medicine Favian Castellon DO [address] [place] [address] Scheduled Procedures Name Priority Associated Diagnoses Date/Ti [...] 0 06/2015, 01/19/2014 Pap Smear Discontinued 09/19/2020, 060 10/2016, 09/25/2012, Additional history exists Zoster Vaccines Completed 04/23/2022, 10/25/2021 Pneumococcal Vaccine: 65+ Years Completed 06/27/2022, 02/10/2007 VITAMIN D LEVEL ONCE IN A LIFETIME-USE SMARTSET# 24928 Completed 02/14/2023, 09/15/2019, 01/21/2019, Additional history exists GARDASIL-HPV IMMUNIZATION SERIES Aged Out No longer eligible based on patient's age to complete this topic HIV Screening Discontinued MENINGOCOCCAL (MENACTRA/MENVEO) Aged Out No longer eligible based on patient's age to complete this topic documented as of this encounter Medical Devices Implanted Type Area Aircraft Powerplant Repairer Device Identifier Shelf Expiration Date Model / Serial / Lot Lens 24.0 Mx60e - [id number] - [id number] Implanted:Qty: 1 on 04/30/2018 by Martin Donnelly MD at [facility] Left: Eye [employer]OM[employer] 01/10/2021 [id number]-15.0 / [id number] / [id number] Mx60 +23.0d Implanted:Qty: 1 on 05/12/2018 by Martin Donnelly MD at OR [facility] Right: Eye 07/12/2020 FN7751.0 / [id number] / [id number] Duraclip 16mm Xlg Repostn - [id number] Implanted:Qty: 2 on 08/23/2022 by Sudhakar Martell MD at [facility] [employer] 11/28/2023 [id number] / / documented as of this encounter [...] and were consensually agreed upon. Care Teams Speech Professor Relationship Specialty Start Date End Date Favian Castellon DO [address] [place] [address] PCP - General Family Medicine 11/05/19 documented as of this encounter
--- OUTSIDE RECORDS SUMMARY | 2023-08-22 17:25 | External Medical Summary | Summary of Care ---
Author Name Unknown Organization [facility] Address [address] [facility] [place] [address] Phone [phone] Care Team Providers Care Policy Advisor Name Role Phone Lesly Castellon DO Primary Care Provider Reason for Visit * Reason Comments eRx-Medication Refill Encounter Details Date Type Department Care Team Description 06/28/2023 Refill Pharmacy, [facility] [address] [place] [address] Lesly Castellon DO [address] [place] [address] Allergies No known active allergiesdocumented as of this encounter (statuses as of 07/01/2023) Medications Medication Sig Dispensed Refills Start Date [...] 180 Tablet 3 08/16/2022 Active Dexcom G6 Fish And Wildlife Technician Device Use as directed . Use to [...] 10/29/2022 Active Vitamin D (Ergocalciferol) 1.25 MG (53660 UT) Oral Capsule (Drisdol) Take 1 capsule [...] the medication 30 Tablet 1 05/13/2023 Active Trulicity 4.5 MG/0.5ML Subcutaneous Solution Pen-injector (Dulaglutide) INJECT 1 PEN SUBCUTANEOUSLY ONCE A WEEK 4 mL 3 07/01/2023 Active documented as of this encounter (statuses as of 07/01/2023) Active Problems Problem Noted Date MDD (major [...] as of this encounter (statuses as of 07/01/2023) Resolved Problems Problem Noted Date Resolved Date [...] as of this encounter (statuses as of 07/01/2023) Immunizations Name Administration Dates Next Due COVID-19 mRNA, LNP-s, No Pre serve, 2-Dose Series (Pfizer) 08/15/2021,01/23/2021,12/29/2020 Hepatitis B, 20+ yrs 06/29/2015,01/19/2015,01/19 Pneumococcal Conjugate Vacci ne, 20-valent ([id number]) 06/27/2022 Pneumococcal Polysaccharide PPV23 (Pneumovax) 02/10/2007 Season [...] encounter Miscellaneous Notes * Telephone Encounter - Lesly Castellon DO - 07/01/2023 7:52 AM EDTSigned Prescriptions: Disp Refills Trulicity 4.5 MG/0.5ML Subcutaneous Soluti*4 mL 3 Sig: INJECT 1 PEN SUBCUTANEOUSLY ONCE A WEEK Authorizing Provider: LESLY CASTELLON * Telephone Encounter - Kaitlyn Fournier LPN - 07/01/2023 7:42 AM EDTPending Prescriptions: Disp Refills Trulicity 4.5 MG/0.5ML Subcutaneous Soluti*4 mL 0 Sig: INJECT 1 PEN SUBCUTANEOUSLY ONCE A WEEK * Telephone Encounter - Kaitlyn Fournier LPN - 07/01/2023 7:40 AM EDT Duplicate request, script filled yesterday documented in this encounter Plan of Treatment Upcoming Encounters Date Type Specialty Care Team Description 07/02/2023 Office Visit General Surgery Robi Geiger MD [address] [place] [address] 09/09/2023 Office Visit Neurology Sommer Che PA-C [address] [facility] [place], [place] [address] 09/24/2023 Office Visit Pharmacy [facility] [place] [address] [place] [address] 01/20/2024 Office Visit Family Medicine Lesly Castellon DO [address] [place] [address] Scheduled Procedures Name Priority Associated Diagnoses Date/Ti [...] D LEVEL ONCE IN A LIFETIME-USE SMARTSET# 40147 Completed 02/14/2023, 09/15/2019, 01/21/2019, Additional history exists GARDASIL-HPV IMMUNIZATION SERIES Aged Out No longer eligible based on patient's age to complete this topic HIV Screening Discontinued MENINGOCOCCAL (MENACTRA/MENVEO) Aged Out No longer eligible based on patient's age to complete this topic documented as of this encounter Medical Devices Implanted Type Area Energy Management Specialist Device Identifier Shelf Expiration Date Model / Serial / Lot Lens 24.0 Mx60e - [id number] - [id number] Implanted:Qty: 1 on 04/30/2018 by Martin Donnelly MD at OR [facility] Left: Eye [employer]OM[employer] 01/10/2021 [id number]-77.0 / [id number] / [id number] Mx60 +23.0d Implanted:Qty: 1 on 05/12/2018 by Martin Donnelly MD at OR [facility] Right: Eye 07/12/2020 BT1463.0 / [id number] / [id number] Duraclip 16mm Xlg Repostn - [id number] Implanted:Qty: 2 on 08/23/2022 by Sudhakar Martell MD at [facility] [employer] JESSICA 11/28/2023 [id number] / / documented as of this encounter [...] and were consensually agreed upon. Care Teams Policy Advisor Relationship Specialty Start Date End Date Lesly Castellon DO [address] [place] [address] PCP - General Family Medicine 11/05/19 documented as of this encounter
--- OUTSIDE RECORDS SUMMARY | 2023-08-22 17:25 | External Medical Summary | Summary of Care ---
Author Name Unknown Organization [facility] Address [address] [facility] [place] [address] Phone [phone] Care Team Providers Care Gauger Delivery Name Role Phone Favian Castellon Primary Care Provider Reason for Visit * Reason Comments Outpatient Testing Encounter Details Date Type Department Care Team Description 06/24/2023 Laboratory Laboratory, [facility] [address] [facility] [place] [address] [facility] [address] [facility] [address] Type 2 diabetes mellitus with hemoglobin A1c goal of less than 8.0% ([facility]) Allergies No known active allergiesdocumented as of this encounter (statuses as of 06/24/2023) Medications Medication Sig Dispensed Refills Start Date [...] 180 Tablet 3 08/16/2022 Active Dexcom G6 Web Services Architect Device Use as directed . Use to [...] 10/29/2022 Active Vitamin D (Ergocalciferol) 1.25 MG (34472 UT) Oral Capsule (Drisdol) Take 1 capsule [...] as of this encounter (statuses as of 06/24/2023) Active Problems Problem Noted Date MDD (major [...] as of this encounter (statuses as of 06/24/2023) Resolved Problems Problem Noted Date Resolved Date [...] as of this encounter (statuses as of 06/24/2023) Immunizations Name Administration Dates Next Due COVID-19 mRNA, LNP-s, No Pre serve, 2-Dose Series (Pfizer) 08/15/2021,01/23/2021,12/29/2020 Hepatitis B, 20+ yrs 06/29/2015,01/19/2015,01/19 Pneumococcal Conjugate Vacci ne, 20-valent (Midrucw86) 06/27/2022 Pneumococcal Polysaccharide PPV23 (Pneumovax) 02/10/2007 Season [...] Encounters Date Type Specialty Care Team Description 06/25/2023 Office Visit [facility]acy [facility] [place] [address] [place] [address] 07/02/2023 Office Visit General Surgery Robi Geiger MD [address] [place] [address] 09/09/2023 [facility] [address] 01/20/2024 Office Visit Family Medicine Favian Castellon DO [address] [place] [address] Pending Results Name Type Priority Associated Diagnoses Date /Time HEMOGLOBIN A1C Lab Routine Type 2 diabetes mellitus with hemoglobin A1c goal of less than 8.0% ([facility]) 06/24/2023 1:47 PM EDT Scheduled Procedures Name Priority Associated Diagnoses Date/Ti me COLONOSCOPY FLEXIBLE PROXIMAL DIAGNOSTIC Recall History of colon polyps Health Maintenance Due Date Last Done Comments COVID-19 Vaccine (4 - Pfizer series) 10/10/2021 08/15/2021, 01/23/2021, 12/29/2020 DIABETES-EYE EXAM 05/31/2023 05/31/2022, , 08/11/2020, Additional history exists Influenza Vaccine (FLU shot) (#1) 2023 10/13/2022, 08/17/2020, 07/01/2019, Additional history exists HbA1c 09/24/2023 03/25/2023, 12/12, 09/18/2022, Additional history exists Depression Screening 10/29/2023 10/29/2022 Albumin/Creatinine Ratio 01/08/2024 023, 06/26/2022, 01/02/2022, Additional [...] 040 06/2015, 01/19/2014 Pap Smear Discontinued 09/19/2020, 10/2016, 09/25/2012, Additional history exists Zoster Vaccines Completed 04/23/2022, 10/25/2021 Pneumococcal Vaccine: 65+ Years Completed 06/27/2022, 02/10/2007 VITAMIN D LEVEL ONCE IN A LIFETIME-USE SMARTSET# 36945 Completed 02/14/2023, 09/15/2019, 01/21/2019, Additional history exists GARDASIL-HPV IMMUNIZATION SERIES Aged Out No longer eligible based on patient's age to complete this topic HIV Screening Discontinued MENINGOCOCCAL (MENACTRA/MENVEO) Aged Out No longer eligible based on patient's age to complete this topic documented as of this encounter Medical Devices Implanted Type Area Cat Tender Device Identifier Shelf Expiration Date Model / Serial / Lot Lens 24.0 Mx60e - [id number] - [id number] Implanted:Qty: 1 on 04/30/2018 by Martin Donnelly MD at OR [facility] Left: Eye [employer]OM[employer] 01/10/2021 [id number]-12.0 / [id number] / [id number] Mx60 +23.0d Implanted:Qty: 1 on 05/12/2018 by Martin Donnelly MD at OR [facility] Right: Eye 07/12/2020 CU4346.0 / [id number] / [id number] Duraclip 16mm Xlg Repostn - [id number] Implanted:Qty: 2 on 08/23/2022 by Sudhakar Martell MD at [facility] [employer] 11/28/2023 [id number] / / documented as of this encounter Visit Diagnoses Diagnosis Type 2 diabetes mellitus with hemoglobin A1c goal of less than 8.0% (HCC) documented in this encounter Advance Directives [...] and were consensually agreed upon. Care Teams Gauger Delivery Relationship Specialty Start Date End Date Favian Castellon DO [address] [place] [address] PCP - General Family Medicine 11/05/19 documented as of this encounter
--- OUTSIDE RECORDS SUMMARY | 2023-08-22 17:25 | External Medical Summary | Summary of Care ---
Author Name Unknown Organization [facility] Address [address] [facility] [place] [address] Phone [phone] Care Team Providers Care Fashion Buyer Name Role Phone Favian Castellon Primary Care Provider Reason for Visit * Reason Comments NEW PATIENT Evaluate for breast biopsy,mass of left breast * Evaluate & Treat - Unlimited Visits (Within 10 days (routine)) - Pending Review Specialty Diagnoses / Procedures Referred By Suellen mercer Referred To Contact General Surgery - Breast Surgery / Surgical Oncology Diagnoses Mass of upper outer quadrant of left breast Ledy Rodriguez CRNP [address] [place] [address] Referral ID Status Reason Start Date Expiration Date Visits Requested Visits Authorized [id number] Pending Review Specialty Services Required 05/13/[phone] Encounter Details Date Type Department Care Team Description 06/06/2023 Office Visit General Surgery, [facility] [address] [place] [address] Robi Geiger MD [address] [place] [address] Mass of upper outer quadrant of left breast* Allergies No known active allergiesdocumented as of this encounter (statuses as of 06/06/2023) Medications Medication Sig Dispensed Refills Start Date [...] 180 Tablet 3 08/16/2022 Active Dexcom G6 Jewelry Sales Associate Device Use as directed . Use to [...] 10/29/2022 Active Vitamin D (Ergocalciferol) 1.25 MG (71029 UT) Oral Capsule (Drisdol) Take 1 capsule [...] as of this encounter (statuses as of 06/06/2023) Active Problems Problem Noted Date MDD (major [...] as of this encounter (statuses as of 06/06/2023) Resolved Problems Problem Noted Date Resolved Date [...] as of this encounter (statuses as of 06/06/2023) Immunizations Name Administration Dates Next Due COVID-19 mRNA, LNP-s, No Pre serve, 2-Dose Series (TagArray) 08/15/2021,01/23/2021,12/29/2020 Hepatitis B, 20+ yrs 06/29/2015,01/19/2015,01/19 Pneumococcal Conjugate Vacci ne, 20-valent ([id number]) 06/27/2022 Pneumococcal Polysaccharide PPV23 (Pneumovax) 02/10/2007 Season [...] Sign Reading Time Taken Comments Blood Pressure 141/77 06/06/2023 8:00 AM EDT Pulse 67 06/06/2023 8:00 AM EDT Temperature 36.4 C (97.5 F) 06/06/2023 8:00 AM ED T Respiratory Rate - - Oxygen Saturation - - Inhaled Oxygen Concentration - - Weight 76 kg (167 lb 8 oz) 06/06/2023 8:00 AM ED T Height - - Body Mass Index 32.71 08/23/2022 7:43 AM EST documented in this encounter Progress Notes * Robi Geiger MD - 06/06/2023 8:39 AM EDT [facility] Chief Complaint Patient presents with NEW PATIENT Evaluate for breast biopsy,mass of left breast REASON FOR CONSULTATION: Left breast mass HISTORY: Aixa Cruz is a 67 year old year old female who is seen at the request of ALEXANDRIA Boyce for evaluation of an enlarging left breast mass. She underwent a mammogram in May of last year which demonstrated a 2.2 cm simple cyst in the left breast. A proximally 1 month later, shenoted a mass in this location. It has been increasing in size. She just underwent routine screeningmammography this month which demonstrated a 4.4 x 4.5 cm mass in the left upper outer quadrant. This was labeled BI-RADS 4. She has a family history of breast cancer in her mother at 72. No history of ovarian cancer. She denies any new onset of headaches, abdominal pain, bone pain, fevers or chills, weight loss or fatigue. She denies chest pain or shortness of breath. BREAST HISTORY: Mass: Yes; left upper outer, [...] performed by Silvestre Max MD at ENDOSCOPY [facility] COLONOSCOPY, DIAGNOSTIC (RECTUM) 07/20/2019 biopsies show adenomatous polyps/recall 3 years/COLONOSCOPY FLEXIBLE PROXIMAL DIAGNOSTIC performed by Sudhakar Martell MD at ENDOSCOPY [facility] COLONOSCOPY, DIAGNOSTIC (RECTUM) 08/23/2022 benign adenomatous polyp, diverticulosis, repeat 3 yrs / COLONOSCOPY FLEXIBLE PROXIMAL DIAGNOSTIC performed by Sudhakar Martell MD at ENDOSCOPY [facility] INJECT DX/THER SUBSTANCE INTERLAMINAR LUMBAR/SACRAL W IMAGE GUIDE 11/05/2021 INJECTION SPINE LUMBAR OR SACRAL performed by Raimundo An DO at [facility] INJECT DX/THER SUBSTANCE INTERLAMINAR LUMBAR/SACRAL W IMAGE GUIDE 03/20/2022 INJECTION SPINE LUMBAR OR SACRAL performed by Raimundo An DO at [facility] INJECT DX/THER SUBSTANCE INTERLAMINAR LUMBAR/SACRAL W IMAGE GUIDE 11/13/2022 INJECTION SPINE LUMBAR OR SACRAL performed by Raimundo An DO at OR [facility] INJECT DX/THER SUBSTANCE INTERLAMINAR LUMBAR/SACRAL W IMAGE GUIDE 05/14/2023 INJECTION SPINE LUMBAR OR SACRAL performed by Raimundo An DO at OR [facility] PATIENT EDU, LAP-BAND SURGERY REMOVE CATARACT, INSERT LENS PROSTH Left 04/30/2018 left EXTRACAPSULAR CATARACT REMOVAL WITH INTRAOCULAR LENS performed by Martin Donnelly MD at OR [facility] REMOVE CATARACT, INSERT LENS PROSTH Right 05/12/2018 right EXTRACAPSULAR CATARACT REMOVAL WITH INTRAOCULAR LENS performed by Martin Donnelly MD at OR [facility] REMOVE TONSILS & ADENOIDS, UNDER 12 REVISION OF MIDDLE EAR BONE Dr. Allred ALLERGIES: Allergies as of 06/06/2023 (No Known Allergies) MEDICATIONS: Current Outpatient Medications [...] preferred brand Dx E11.9 400 Each 3 Trulicity 4.5 MG/0.5ML Subcutaneous Solution Pen-injector (Dulaglutide) Inject 1 pen once weekly 6 mL 3 Furosemide 20 MG Oral Tablet (Lasix) TAKE 1 TABLET BY MOUTH TWICE DAILY NEEDED FOR FEET SWELLING, FLUID ACCUMULATION, OR WEIGHT GAIN 180 Tablet 3 Dexcom G6 Jewelry Sales Associate Device Use as directed . Use to [...] Tablet 3 Vitamin D (Ergocalciferol) 1.25 MG (37443 UT) Oral Capsule (Drisdol) Take 1 capsule [...] 20 UNITS AT SUPPER 15 mL 11 Escitalopram Oxalate 10 MG Oral Tablet (Lexapro) Take one tablet by mouth daily for 2-4 weeks, thendecrease to a half tablet by mouth daily for 2-4 weeks, then stop the medication 30 Tablet 1 No current facility-administered medications for this visit. [...] rashes, no itching PHYSICAL EXAM: Blood pressure 141/77, pulse 67, temperature 36.4 C (97.5 F), weight 76 kg (167 lb 8 oz), last menstrual period 03/13/2011. Constitutional: alert, healthy, well nourished Head: normocephalic, atraumatic Eyes: conjunctiva non-injected, sclera white Neck: supple, no adenopathy Lungs: clear to auscultation, breath sounds are equal and symmetric Heart: regular rate & rhythm and no murmur, gallops or rubs Abdomen: soft, non-tender Extremities: no edema, no skin discoloration Neuro: [...] the left upper outer quadrant of her breast PLAN: I had a long discussion with her concerning the mass/cyst. There is a thickened wall and solid component to the cystic lesion. I discussed with her that prefer having a biopsy of this area to determine whether this is a cyst or cancer prior to excision. If there were to be cancer, she may require alternate modalities of therapy prior to a surgery. All her questions were extensively answered. We will plan to set her up for ultrasound-guided biopsy of the solid portion of the mass. She willreturn to clinic once this is complete. She will call with any new or concerning symptoms in the meantime. I spent a total of 40-54 minutes (exact time 50 mins) on the date of service in preparation, delivery, and documentation of the care provided to Aixa Cruz excluding any time spent in the performance of separately billed services. Robi Geiger MD 06/06/2023 8:39 AM documented in this encounter Nursing Notes * Marianna Hernandez LPN - 06/06/2023 8:16 AM EDT Social Director Documentation Provider requested hotel concierge. Name of hotel concierge: Marianna Hernandez * Marianna Hernandez LPN - 06/06/2023 8:02 AM EDT Chief Complaint Patient presents with NEW PATIENT Evaluate for breast biopsy,mass of left breast Patient presents today for evaluation of patient found the lump. Patient had mammogram done at [facility] on 06/08/2023. BREAST HISTORY: Mass: No Breast Pain: no Nipple discharge: No Previous problems/surgeries: None Breast Cancer: no Other Cancers: no GYNECOLOGIC HISTORY: LMP: Patient's last menstrual period was 03/13/2011. Patient is postmenopausal. Menarche at age: 15 Menopause at age: mid 50's Number of children: 1 Patient's age at first live : 37 Did you breast feed any of your children: Yes Ever take oral contraceptives? Yes, history of use for 20 year(s) Ever take estrogen? No Family History of Breast Cancer: Yes documented in this encounter Plan of Treatment Upcoming Encounters Date Type Specialty Care Team Description 06/24/2023 Imaging Radiology 06/24/2023 Imaging Radiology 06/25/2023 Office Visit [facility] [address] [place] [address] 07/02/2023 Office Visit General Surgery Robi Geiger MD [address] [place] [address] 09/09/2023 Office Visit Neurology Sommer Che PA-C [address] [place] [address] 01/20/2024 Office Visit Family Medicine Favian Castellon DO [address] [place] [address] Scheduled Orders Name Type Priority Associated Diagnoses Orde r Schedule US GUIDED BREAST BIOPSY LEFT Medical Imaging Routine Mass of upper outer quadrant of left breast Expected: 06/06/2023, Expires: 07/07/2024 Scheduled Procedures Name Priority Associated Diagnoses Date/Ti [...] 03/25/2023, 12/12, 09/18/2022, Additional history exists Depression Screening, Annual for Pts 12 and Over 10/29/2023 10/29/2022 Albumin/Creatinine Ratio 01/08/2024 023, 06/26/2022, 01/02/2022, Additional history exists TSH 01/08/2024 01/07/2023, 06/13, 07/03/2021, Additional history exists DIABETES-FOOT EXAM 05/13/2024 05/13/2023, 0 04/23/2022, 04/24/2021, Additional history [...] D LEVEL ONCE IN A LIFETIME-USE SMARTSET# 56784 Completed 02/14/2023, 09/15/2019, 01/21/2019, Additional history exists GARDASIL-HPV IMMUNIZATION SERIES Aged Out No longer eligible based on patient's age to complete this topic HIV Screening Discontinued MENINGOCOCCAL (MENACTRA/MENVEO) Aged Out No longer eligible based on patient's age to complete this topic documented as of this encounter Medical Devices Implanted Type Area Lathmaker Device Identifier Shelf Expiration Date Model / Serial / Lot Lens 24.0 Mx60e - [id number] - [id number] Implanted:Qty: 1 on 04/30/2018 by Martin Donnelly MD at OR [facility] Left: Eye BAUSCH & LOMB 01/10/2021 [id number]-23.0 / [id number] / [id number] Mx60 +23.0d Implanted:Qty: 1 on 05/12/2018 by Martin Donnelly MD at OR [facility] Right: Eye 07/12/2020 [id number] / [id number] / [id number] Duraclip 16mm Xlg Repostn - [id number] Implanted:Qty: 2 on 08/23/2022 by Sudhakar Martell MD at [facility] [employer] 11/28/2023 [id number] / / documented as of this encounter Visit Diagnoses Diagnosis Mass of upper outer quadrant of left breast- Primary documented in this encounter Advance Directives [...] and were consensually agreed upon. Care Teams Fashion Buyer Relationship Specialty Start Date End Date Favian Castellon DO [address] [place] [address] PCP - General Family Medicine 11/05/19 documented as of this encounter
--- OUTSIDE RECORDS SUMMARY | 2023-08-22 17:25 | External Medical Summary | Summary of Care ---
Author Name Unknown Organization [facility] Address [address] [facility] [place] [address] Phone [phone] Care Team Providers Care Natural Remedy Consultant Name Role Phone Favian Castellon Primary Care Provider Encounter Details Date Type Department Care Team Description 06/24/2023 Orders Only Pharmacy, [facility] [address] [facility] [place] [address] [facility] [address] [facility] [place] [id number] Type 2 diabetes mellitus with hemoglobin A1c goal of less than 8.0% ([facility])* Allergies No known active allergiesdocumented as of [...] 180 Tablet 3 08/16/2022 Active Dexcom G6 Park Superintendent Device Use as directed . Use to [...] 10/29/2022 Active Vitamin D (Ergocalciferol) 1.25 MG (34697 UT) Oral Capsule (Drisdol) Take 1 capsule [...] yrs 06/29/2015,01/19/2015,01/19 Pneumococcal Conjugate Vacci ne, 20-valent ([id number]) 06/27/2022 Pneumococcal Polysaccharide PPV23 (Pneumovax) 02/10/2007 Season [...] Specialty Care Team Description 06/24/2023 Imaging Radiology Mass of upper outer quadrant of left breast 06/25/2023 Office Visit Pharmacy [facility] [place] [address] [place] [address] 07/02/2023 Office Visit General Surgery Robi Geiger MD [address] [place] [address] 09/09/2023 Office [facility] [address] [facility] [address] 01/20/2024 Office Visit Family Medicine Favian Castellon DO [address] [place] [address] Scheduled Orders Name Type Priority Associated Diagnoses Orde r Schedule HEMOGLOBIN A1C Lab Routine Type 2 diabetes mellitus with hemoglobin A1c goal of less than 8.0% (HCC) Expected: 06/24/2023 (Approximate), Expires: 06/24/2024 Scheduled Procedures Name Priority Associated Diagnoses Date/Ti [...] 0 06/2015, 01/19/2014 Pap Smear Discontinued 09/19/2020, 0610/2016, 09/25/2012, Additional history exists Zoster Vaccines Completed 04/23/2022, 10/25/2021 Pneumococcal Vaccine: 65+ Years Completed 06/27/2022, 02/10/2007 VITAMIN D LEVEL ONCE IN A LIFETIME-USE SMARTSET# 37074 Completed 02/14/2023, 09/15/2019, 01/21/2019, Additional history exists GARDASIL-HPV IMMUNIZATION SERIES Aged Out No longer eligible based on patient's age to complete this topic HIV Screening Discontinued MENINGOCOCCAL (MENACTRA/MENVEO) Aged Out No longer eligible based on patient's age to complete this topic documented as of this encounter Medical Devices Implanted Type Area Lift Builder Whole Device Identifier Shelf Expiration Date Model / Serial / Lot Lens 24.0 Mx60e - [id number] - [id number] Implanted:Qty: 1 on 04/30/2018 by Martin Donnelly MD at OR [facility] Left: Eye BAUSCH & LOMB 01/10/2021 [id number]-74.0 / [id number] / [id number] Mx60 +23.0d Implanted:Qty: 1 on 05/12/2018 by Martin Donnelly MD at OR [facility] Right: Eye 07/12/2020 [id number] / [id number] / [id number] Duraclip 16mm Xlg Repostn - [id number] Implanted:Qty: 2 on 08/23/2022 by Sudhakar Martell MD at ENDOSCOPY [facility] CONBawte JESSICA 11/28/2023 [id number] / / documented as of this encounter Visit Diagnoses Diagnosis Mass of upper outer quadrant of left breast Type 2 diabetes mellitus with hemoglobin A1c [...] and were consensually agreed upon. Care Teams Natural Remedy Consultant Relationship Specialty Start Date End Date Favian Castellon DO [address] [place] [address] PCP - General Family Medicine 11/05/19 documented as of this encounter
--- OUTSIDE RECORDS SUMMARY | 2023-08-22 17:26 | External Medical Summary | Summary of Care ---
Author Name Unknown Organization [facility] Address [address] [place] [address] Phone [phone] Care Team Providers Care Book Sorter Name Role Phone Favian Castellon Primary Care Provider Reason for Visit * Reason Onset Date Comments Referral 05/13/2023 Encounter Details Date Type Department Care Team Description 05/13/2023 Telephone General Surgery, [place] [address] [place] [address] Services, Scheduling [address] [place] [address] Referral Allergies No known active allergiesdocumented as of this encounter (statuses as of 05/13/2023) Medications Medication Sig Dispensed Refills Start Date [...] 180 Tablet 3 08/16/2022 Active Dexcom G6 Strategic Marketing Leader Device Use as directed . Use to [...] 10/29/2022 Active Vitamin D (Ergocalciferol) 1.25 MG (47545 UT) Oral Capsule (Drisdol) Take 1 capsule [...] as of this encounter (statuses as of 05/13/2023) Active Problems Problem Noted Date MDD (major [...] as of this encounter (statuses as of 05/13/2023) Resolved Problems Problem Noted Date Resolved Date [...] as of this encounter (statuses as of 05/13/2023) Immunizations Name Administration Dates Next Due COVID-19 mRNA, LNP-s, No Pre serve, 2-Dose Series (Pfizer) 08/15/2021,01/23/2021,12/29/2020 Hepatitis B, 20+ yrs 06/29/2015,01/19/2015,01/19 Pneumococcal Conjugate Vacci ne, 20-valent ([id number]) 06/27/2022 Pneumococcal Polysaccharide PPV23 (Pneumovax) 02/10/2007 Seasonal Influenza, Cell Cul ture, 18 Yrs & Older 07/18/2017 Seasonal Influenza, Quadriva lent, No Preserve, 6 Mons & Above, IM 10/13/2022,08/17/2020,09/14/2018 Seasonal Influenza, Quadriva lent, No Preserve, [...] encounter Miscellaneous Notes * Telephone Encounter - Cassy Mcdowell LPN - 05/13/2023 2:17 PM EDT Sent my g * Addendum Note - ALEXANDRIA Boyce - 05/13/2023 12:40 PM EDTAddended by: ALEXIA RUSSELL on: 05/13/2023 12:40 PM Modules accepted: Orders * Telephone Encounter - ALEXANDRIA Boyce - 05/13/2023 12:40 PM EDT Please notify patient she will need to have updated imaging prior to breast center visit * Telephone Encounter - Fanta Becerra LPN - 05/13/2023 12:10 PM EDT Referral from: Zeke IBRAHIM Consult: Breast Surgery For: left breast mass Referral received as detailed above. Noted that this cyst was documented on imaging from last year, 05/28/22. Updated imaging will be needed prior to scheduling, and pt is due for annual imaging this month. Prerequisite imaging has not been ordered/completed. Will request from referring provider. Cailin Becerra LPN Intake Nurse Navigator General Surgery and Breast Clinic [facility] documented in this encounter Plan of Treatment Upcoming Encounters Date Type Specialty Care Team Description 05/14/2023 Hospital Encounter Surgery Raimundo An, [address] [place] [address] 05/14/2023 Surgery Surgery Raimundo An DO [address] [place] [address] INJECTION SPINE LUMBAR OR SACRAL 06/25/2023 Office Visit Pharmacy [facility] [place] [address] [place] [address] 09/09/2023 Office Visit Neurology Sommer Che PA-C [address] [place] [address] 01/20/2024 Office Visit Family Medicine Favian Castellon DO [address] [place] [address] Scheduled Orders Name Type Priority Associated Diagnoses Orde r Schedule US BREAST LIMITED BILATERAL Medical Imaging Routine Lump in upper outer quadrant of left breast Encounter for screening mammogram for breast cancer Expected: 05/13/2023, Expires: 06/13/2024 MAMMOGRAM DIAGNOSTIC BILATERAL Medical Imaging Routine Lump in upper outer quadrant of left breast Encounter for screening mammogram for breast cancer Expected: 05/20/2023, Expires: 06/13/2024 Scheduled Procedures Name Priority Associated Diagnoses Date/Ti me INJECTION SPINE LUMBAR OR SACRAL Lumbar radiculopathy 05/14/2023 9:00 AM EDT COLONOSCOPY FLEXIBLE PROXIMAL DIAGNOSTIC Recall History of colon polyps Health Maintenance Due Date Last Done Comments COVID-19 Vaccine (4 - Pfizer series) 10/10/2021 08/15/2021, 01/23/2021, 12/29/2020 Mammogram 05/28/2023 05/28/2022, 03/14, 04/10/2021, Additional history exists DIABETES-EYE EXAM 05/31/2023 05/31/2022, , 08/11/2020, Additional [...] 05/13/2024 05/13/2023, 12/12, 06/26/2022, Additional history exists DXA Scan 12/18/2024 12/18/2022, [...] D LEVEL ONCE IN A LIFETIME-USE SMARTSET# 50081 Completed 02/14/2023, 09/15/2019, 01/21/2019, Additional history exists GARDASIL-HPV IMMUNIZATION SERIES Aged Out No longer eligible based on patient's age to complete this topic HIV Screening Discontinued MENINGOCOCCAL (MENACTRA/MENVEO) Aged Out No longer eligible based on patient's age to complete this topic documented as of this encounter Medical Devices Implanted Type Area Automatic Glove Turner And Former Device Identifier Shelf Expiration Date Model / Serial / Lot Lens 24.0 Mx60e - [id number] - [id number] Implanted:Qty: 1 on 04/30/2018 by Martin Donnelly MD at OR [facility] Left: Eye BAUSCH & LOMB 01/10/2021 [id number]-98.0 / [id number] / [id number] Mx60 +23.0d Implanted:Qty: 1 on 05/12/2018 by Martin Donnelly MD at OR [facility] Right: Eye 07/12/2020 [id number] / [id number] / [id number] Duraclip 16mm Xlg Repostn - [id number] Implanted:Qty: 2 on 08/23/2022 by Sudhakar Martell MD at [facility] CONMED JESSICA 11/28/2023 [id number] / / documented as of this encounter Visit Diagnoses Diagnosis Lump in upper outer quadrant of left breast- Primary Encounter for screening mammogram for breast cancer Lumbar radiculopathy Thoracic or lumbosacral neuritis or radiculitis, unspecified documented in this encounter Advance Directives [...] and were consensually agreed upon. Care Teams Book Sorter Relationship Specialty Start Date End Date Favian Castellon DO [address] [place] [address] PCP - General Family Medicine 11/05/19 documented as of this encounter
--- OUTSIDE RECORDS SUMMARY | 2023-08-22 17:26 | External Medical Summary | Summary of Care ---
Author Name Unknown Organization [facility] Address [address] [facility] [place] [address] Phone [phone] Care Team Providers Care Ivf Embryologist Name Role Phone Favian Castellon DO Primary Care Provider Reason for Visit * Auth/Cert Specialty Diagnoses / Procedures Referred By Contac t Referred To Contact Diagnoses Lumbar radiculopathy Lumbar radiculopathy [M54.16] Procedures INJECT DX/THER SUBSTANCE INTERLAMINAR LUMBAR/SACRAL W IMAGE GUIDE INJECTION SPINE LUMBAR OR SACRAL Referral ID Status Reason Start Date Expiration Date Visits Re quested Visits Authorized [id number] Encounter Details Date Type Department Care Team Description 05/14/2023 Hospital Encounter OR [facility], Operating Room [facility] [address] [place] [phone] CouRaimundo pathakDO [address] [place] [address] Allergies No known active allergiesdocumented as of this encounter (statuses as of 05/14/2023) Medications Medication Sig Dispensed Refills Start Date [...] 180 Tablet 3 08/16/2022 Active Dexcom G6 Turntable Engineer Device Use as directed . Use [...] 10/29/2022 Active Vitamin D (Ergocalciferol) 1.25 MG (73539 UT) Oral Capsule (Drisdol) Take 1 capsule [...] as of this encounter (statuses as of 05/14/2023) Active Problems Problem Noted Date MDD (major [...] as of this encounter (statuses as of 05/14/2023) Resolved Problems Problem Noted Date Resolved Date [...] as of this encounter (statuses as of 05/14/2023) Immunizations Name Administration Dates Next Due COVID-19 mRNA, LNP-s, No Pre serve, 2-Dose Series ([employer]) 08/15/2021,01/23/2021,12/29/2020 Hepatitis B, 20+ yrs 06/29/2015,01/19/2015,01/19 Pneumococcal Conjugate Vacci ne, 20-valent (Sqatizp45) 06/27/2022 Pneumococcal Polysaccharide PPV23 (Pneumovax) 02/10/2007 Seasonal [...] Sign Reading Time Taken Comments Blood Pressure 132/94 05/14/2023 9:06 AM EDT Pulse 68 05/14/2023 9:06 AM EDT Temperature 36.1 C (97 F) 05/14/2023 8:42 AM EDT Respiratory Rate 15 05/14/2023 9:06 AM EDT Oxygen Saturation 97% 05/14/2023 9:06 AM EDT Inhaled Oxygen Concentration - - Weight - - Height - - Body Mass Index - - documented in this encounter Discharge Instructions * Discharge Instr - AVS* Raimundo An DO - 05/14/2023 9:04 AM EDT [facility] [address] [place] [address] Discharge Date: 05/14/2023 You may call [facility] at [phone] during business hours. For after-hours emergencies call 911. Your attending physician at the time of your discharge was: Raimundo An DO [address] [place] [address] The information below provides you with the instructions and the list of medications you need to betaking following discharge from the hospital. If you have any questions, please ask before leaving.Please carry this letter with you when you see your doctor in the clinic. Diet: Resume your normal diet If you are diabetic, follow your blood sugars closely for next 2-3 days as they are likely to be elevated. If you are having difficulty controlling your blood sugars call your family doctor or the physician that treats your diabetes. Activity: Do not engage in strenuous activity today Resume your normal activities tomorrow Do not soak in water for 24 hours. No swimming, hot tub or bath but showering is allowed. Do not use heat on the injection site for 24 hours. If uncomfortable ice may be helpful. Some injections may make your arms or legs weak for a few hours. Be extremely careful when walking or changing positions that you do not fall. Have someone assist you for the next 6 hours. If weakness or numbness becomes progressive CALL IMMEDIATELY or GO TO THE NEAREST EMERGENCY ROOM Keep a diary of your pain until seen in the office to help us determine how effective the injectionwas Do not restart physical therapy or chiropractic manipulation until 48 hours after your injection Call : If weakness or numbness suddenly becomes worse or become progressive If the injection site becomes red, swollen, warm to the touch, begins to bleed or drain fluid, or is excessively painful. If you have any questions Medications: Resume all the medications you were taking prior to your injection. Resume your anticoagulants tomorrow unless otherwise instructed by your family physician, statistics professor or the anticoagulation clinic. Additional Instructions: Driving: . Date you may return to work or school: Follow Up: Call [phone] in 4 weeks. documented in this encounter Progress Notes * Raimundo An DO - 05/14/2023 9:04 AM EDT [facility] [address] [address] OUTPATIENT SURGERY DISCHARGE SUMMARY NOTE Name: Aixa Cruz Location: [facility] Date: 05/14/2023 Time: 9:04 AM Surgery Date: 05/14/2023 Procedure: Procedure(s): INJECTION SPINE LUMBAR OR SACRAL No laterality found for procedure #1 Surgeon: Surgeon(s): Raimundo An DO Discharge Diagnosis: Lumbar radicular pain After examination of this patient, I have determined she is ready for discharge to home when the patient meets criteria. Discharge instructions were given to the patient. documented in this encounter H&P Notes * Raimundo An DO - 05/14/2023 6:43 AM EDT Interventional Pain Pre-Procedure Assessment Name:Aixa Cruz Date:05/14/2023 Time:6:44 AM Procedure(s): Caudal epidural steroid injection Diagnosis: Lumbar radicular pain Pre-Procedure Assessment: Prior to the procedure, the patient was identified. The patient's history, medications and allergies were reviewed . The patient is competent. The risks and benefits of the proposed procedure and theplanned sedation were discussed with the patient. All questions were answered and informed consent for the procedure was obtained. Prior to Admission medications Medication Sig Last Dose Discont. Alendronate Sodium 70 MG Oral Tablet (Fosamax) Take 1 Tablet by mouth once a week. with 8 oz. water30 minutes before first meal of the day. Remain upright for 30 min after taking tablet. Escitalopram Oxalate 10 MG Oral Tablet (Lexapro) Take one tablet by mouth daily for 2-4 weeks, thendecrease to a half tablet by mouth daily for 2-4 weeks, then stop the medication Losartan Potassium-HCTZ 100-25 MG Oral Tablet (Hyzaar) Take 1 tablet by mouth once daily NovoLOG FlexPen 100 UNIT/ML Subcutaneous Solution Pen-injector INJECT 5 UNITS SUBCUTANEOUSLY IN THEMORNING, 10 UNITS AT LUNCH, AND 20 UNITS AT SUPPER Semglee (yfgn) 100 UNIT/ML Subcutaneous Solution Pen-injector INJECT 35 UNITS SUBCUTANEOUSLY AT BEDTIME Dexcom G7 Sensor Use to test blood sugar Vitamin D (Ergocalciferol) 1.25 MG (12863 UT) Oral Capsule (Drisdol) Take 1 capsule by mouth once aweek Atenolol 25 MG Oral Tablet (Tenormin) Take 1 Tablet by mouth in the morning. Levothyroxine Sodium 100 MCG Oral Tablet TAKE 1 TABLET BY MOUTH IN THE MORNING 30 MIN PRIOR TO BREAKFAST OR OTHER MEDS Atorvastatin Calcium 80 MG Oral Tablet (Lipitor) Take 1 tablet by mouth once daily Dexcom G6 Turntable Engineer Device Use as directed . Use to test blood sugar Furosemide 20 MG Oral Tablet (Lasix) TAKE 1 TABLET BY MOUTH TWICE DAILY NEEDED FOR FEET SWELLING, FLUID ACCUMULATION, OR WEIGHT GAIN Trulicity 4.5 MG/0.5ML Subcutaneous Solution Pen-injector (Dulaglutide) Inject 1 pen once weekly Insulin Pen Needle 31G X 5 MM Use with Lantus and Novolog 4 times a day. Can substitute for preferred brand Dx E11.9 aspirin 81 MG chewable tablet Take 1 Tab by mouth daily. with food. B-D Ultrafine III, 5MM, Pen MISC Use daily with insulin pen Review of patient's allergies indicates: No Known Allergies LMP 03/13/2011 Physical Exam: Mental Status Examination: alert and oriented. Airway Examination: normal oropharyngeal airway and neck mobility. Respiratory Examination: clear to auscultation. CV Examination: normal. ASA Grade: II - A patient with mild systemic disease. After reviewing the risks and benefits, the patient was deemed in satisfactory condition to undergothe procedure. The anesthesia plan was to use local anesthesia. Raimundo An DO 05/14/2023 documented in this encounter Nursing Notes * Ana Lilia Etienne RN - 05/14/2023 9:06 AM EDT Visited by Dr An. Verbalized understanding of discharge directions. Ready for discharge to home. * Azucena Villeda RN - 05/14/2023 9:01 AM EDT Band aid applied to area. Patient transferred to PACU 11 via wheelchair * Azucena Villeda RN - 05/14/2023 8:59 AM EDT Patient tolerating pain management injection well. documented in this encounter OR Notes * OR Surgeon - Raimundo An DO - 05/14/2023 9:05 AM EDT OPERATIVE RECORD OR [facility], Operating Room [facility] [address] [facility] [place] [address] Aixa Cruz : 1955 DOS: 05/14/2023 SERVICE: INTERVENTIONAL PAIN MANAGEMENT PRE-OP DIAGNOSIS: Lumbar radicular pain. POST-OP DIAGNOSIS: Same. SURGEON: Raimundo An DO. ASSISTANTS: None. ANESTHESIA: 2 cubic centimeters of 1% lidocaine. OPERATION: Caudal epidural steroid injection. FINDINGS: No intraoperative findings. ESTIMATED BLOOD LOSS: None. DRAINS: There were no drains placed. FLUIDS: No IV fluids. URINE OUTPUT: None. SPECIMEN: No specimens collected. COMPLICATIONS: None. CONDITION: Good. INDICATIONS AND HISTORY: Aixa Cruz presents in anticipation of undergoing epidural steroid injection for persistent low back and lower extremity radicular pain refractory to conservative treatment. The injection procedure was reviewed, as well as the risks of bleeding, infection, headache, nerve or spinal cord injury, worsening pain, or steroid side effects. DESCRIPTION OF OPERATION: After obtaining appropriate informed consent, Aixa Cruz was taken tothe fluoroscopy suite, placed in a prone position. Time-out was taken to properly identify the patient and procedure, and the sacral hiatus was identified and the overlying skin sterilely prepped with ChloraPrep and draped. 1% lidocaine, 2 cubic centimeters, was infiltrated in skin and subcutaneoustissue and a #25 gauge, 3-1/2 inch spinal needle was directed with fluoroscopic guidance through the sacral hiatus, into the sacral canal without pain or paresthesia. After negative aspiration for blood or cerebrospinal fluid, Omnipaque 180, 0.5 cubic centimeter was easily injected, showed appropriate epidural spread in P-A and lateral fluoroscopic views. There was no evidence of intravascular orsubarachnoid spread of contrast. Kenalog 40 mg with 5 cubic centimeters of preservative-free normalsaline was slowly and easily injected without pain. There was appropriate washout of contrast. The needle was removed. Patient tolerated procedure well. Aixa Cruz will be re-evaluated by phone in approximately 4 weeks, and was given appropriate discharge instructions following postprocedure monitoring. Raiumndo An DO 05/14/2023 9:05 AM documented in this encounter Plan of Treatment Upcoming Encounters Date Type Specialty Care Team Description 06/25/2023 Office Visit Pharmacy [facility] [address] [facility] [address] 09/09/2023 Office Visit Neurology Sommer Che PA-C [address] [facility] [place], [place] [address] 01/20/2024 Office Visit Family Medicine Favian Castellon DO [address] [place] [address] Scheduled Procedures Name Priority Associated Diagnoses Date/Ti me INJECTION SPINE LUMBAR OR SACRAL Lumbar radiculopathy 05/14/2023 8:57 AM EDT COLONOSCOPY FLEXIBLE PROXIMAL DIAGNOSTIC Recall [...] D LEVEL ONCE IN A LIFETIME-USE SMARTSET# 92394 Completed 02/14/2023, 09/15/2019, 01/21/2019, Additional history exists GARDASIL-HPV IMMUNIZATION SERIES Aged Out No longer eligible based on patient's age to complete this topic HIV Screening Discontinued MENINGOCOCCAL (MENACTRA/MENVEO) Aged Out No longer eligible based on patient's age to complete this topic documented as of this encounter Medical Devices Implanted Type Area Incident Response Engineer Device Identifier Shelf Expiration Date Model / Serial / Lot Lens 24.0 Mx60e - [id number] - [id number] Implanted:Qty: 1 on 04/30/2018 by Martin Donnelly MD at OR [facility] Left: Eye [employer]OMB 01/10/2021 [id number]-56.0 / [id number] / [id number] Mx60 +23.0d Implanted:Qty: 1 on 05/12/2018 by Martin Donnelly MD at OR [facility] Right: Eye 07/12/2020 [id number] / [id number] / [id number] Duraclip 16mm Xlg Repostn - [id number] Implanted:Qty: 2 on 08/23/2022 by Sudhakar Martell MD at ENDOSCOPY [facility] Property [employer] 11/28/2023 [id number] / / documented as of this encounter Procedures Procedure Name Priority Date/Time Associated Diagnosis Comments FLUORO INTERVENTIONAL PAIN PROCEDURE NONBILLABLE Routine 05/14/2023 9:05 AM EDT documented in this encounter Results * FLUORO INTERVENTIONAL PAIN PROCEDURE NONBILLABLE (05/14/2023 9:05 AM EDT) Narrative Scheduling, Silent - 05/14/2023 9:05 AM EDT This procedure will not be read by a Radiologist. Please see operative note. Raimundo An DO RAD FLUOROSCOPY documented in this encounter Administered Medications Inactive Administered Medications - up to 3 most recent administrations Medication Order MAR Action Action Date Dose Rate Site Iohexol (Omnipaque 180) inj 0.5 mL 0.5 mL, Injection, ONCE, On Fri05/14/23 at 0915, For 1 dose Given 05/14/2023 8:59 AM EDT 0.5 mL lidocaine 1 % inj 20 mg 20 mg (2 mL), Subcutaneous, ONCE, On Fri05/14/23 at 0915, For 1 dose Given 05/14/2023 8:58 AM EDT 20 mg Other-Specify Triamcinolone Acetonide (Kenalog) 40 MG/ML inj 40 mg 40 mg, Injection, ONCE, On Fri05/14/23 at 0915, For 1 dose Given 05/14/2023 9:00 AM EDT 40 mg documented in this encounter Active and Recently Administered Medications Times are shown in EDT. Scheduled Medication Order 05/12/2023 05/13/2023 05/14/2023 Iohexol (Omnipaque 180) inj 0.5 mL (COMPLETED) 0.5 mL, Injection, ONCE, On Fri05/14/23 at 0915, For 1 dose 0859 (Given - Provid er: Azucena Villeda RN) lidocaine 1 % inj 20 mg (COMPLETED) 20 mg (2 mL), Subcutaneous, ONCE, On Fri05/14/23 at 0915, For 1 dose 0858 (Given - Provid er: Azucena Villeda RN - Comment: caudal) Triamcinolone Acetonide (Kenalog) 40 MG/ML inj 40 mg (COMPLETED) 40 mg, Injection, ONCE, On Fri05/14/23 at 0915, For 1 dose 0900 (Given - Provid er: Azucena Villeda RN) documented in this encounter Advance Directives Latest [...] and were consensually agreed upon. Care Teams Ivf Embryologist Relationship Specialty Start Date End Date Favian Castellon, [address] [place] [address] PCP - General Family Medicine 11/05/19 documented as of this encounter
--- OUTSIDE RECORDS SUMMARY | 2023-08-22 17:26 | External Medical Summary | Summary of Care ---
Author Name Unknown Organization [facility] Address [address] [facility] [place] [address] Phone [phone] Care Team Providers Care Electrical Fitter Name Role Phone Favian Castellon Primary Care Provider Encounter Details Date Type Department Care Team Description 05/29/2023 Telephone Family Practice [facility] [address] [place] [address] Ledy Rodriguez CRNP [address] [place] [address] Allergies No known active allergiesdocumented as of this encounter (statuses as of 05/30/2023) Medications Medication Sig Dispensed Refills Start Date [...] 180 Tablet 3 08/16/2022 Active Dexcom G6 Claim Agent Device Use as directed . Use to [...] 10/29/2022 Active Vitamin D (Ergocalciferol) 1.25 MG (99393 UT) Oral Capsule (Drisdol) Take 1 capsule [...] as of this encounter (statuses as of 05/30/2023) Active Problems Problem Noted Date MDD (major [...] as of this encounter (statuses as of 05/30/2023) Resolved Problems Problem Noted Date Resolved Date [...] as of this encounter (statuses as of 05/30/2023) Immunizations Name Administration Dates Next Due COVID-19 mRNA, LNP-s, No Pre serve, 2-Dose Series (Pfizer) 08/15/2021,01/23/2021,12/29/2020 Hepatitis B, 20+ yrs 06/29/2015,01/19/2015,01/19 Pneumococcal Conjugate Vacci ne, 20-valent (Jufgeob20) 06/27/2022 Pneumococcal Polysaccharide PPV23 (Pneumovax) 02/10/2007 Season [...] encounter Miscellaneous Notes * Telephone Encounter - Fanta Becerra LPN - 05/30/2023 11:05 AM EDT Left message for patient yesterday after 1600 and again this morning at 1105, left my direct line and requested callback. All documented in the INN encounter from 05/13, and will continue documentation there. Cailin Becerra LPN Intake Nurse Navigator General Surgery and Breast Clinic [facility] * Telephone Encounter - ALEXANDRIA Boyce - 05/29/2023 10:21 PM EDT Breast imaging updated per request (see other encounter). Please schedule for breast clinic visit (referral placed at recent visit). documented in this encounter Plan of Treatment Upcoming Encounters Date Type Specialty Care Team Description 06/25/2023 Office Visit Pharmacy [facility] [place] [address] [place] [address] 09/09/2023 Office Visit Neurology Sommer Che PA-C [address] [facility] [place] [address] 01/20/2024 Office Visit Family Medicine Favian Castellon DO [address] [place] [address] Scheduled Procedures Name Priority Associated Diagnoses Date/Ti [...] D LEVEL ONCE IN A LIFETIME-USE SMARTSET# [id number] Completed 02/14/2023, 09/15/2019, 01/21/2019, Additional history exists GARDASIL-HPV IMMUNIZATION SERIES Aged Out No longer eligible based on patient's age to complete this topic HIV Screening Discontinued MENINGOCOCCAL (MENACTRA/MENVEO) Aged Out No longer eligible based on patient's age to complete this topic documented as of this encounter Medical Devices Implanted Type Area House Manager Device Identifier Shelf Expiration Date Model / Serial / Lot Lens 24.0 Mx60e - [id number] - [id number] Implanted:Qty: 1 on 04/30/2018 by Martin Donnelly MD at OR [facility] Left: Eye [employer]CH [employer] LOMB 01/10/2021 [id number]-36.0 / [id number] / [id number] Mx60 +23.0d Implanted:Qty: 1 on 05/12/2018 by Martin Donnelly MD at OR [facility] Right: Eye 07/12/2020 PA9807.0 / [id number] / [id number] Duraclip 16mm Xlg Repostn - [id number] Implanted:Qty: 2 on 08/23/2022 by Sudhakar Martell MD at ENDOSCOPY [facility] CONMED JESSICA 11/28/2023 [id number] / / documented as of this encounter [...] and were consensually agreed upon. Care Teams Electrical Fitter Relationship Specialty Start Date End Date Favian Castellon DO [address] [place] [address] PCP - General Family Medicine 11/05/19 documented as of this encounter
--- OUTSIDE RECORDS SUMMARY | 2023-08-22 17:26 | External Medical Summary | Summary of Care ---
Author Name Unknown Organization [facility] Address [address] [facility] [place] [address] Phone [phone] Care Team Providers Care Certified Pesticide Applicator Name Role Phone Favian Castellon Primary Care Provider Encounter Details Date Type Department Care Team Description 05/29/2023 Telephone Family Practice [facility] [address] [place] [address] Ledy Rodriguez CRNP [address] [place] [phone] Allergies No known active allergiesdocumented as of this encounter (statuses as of 06/02/2023) Medications Medication Sig Dispensed Refills Start Date [...] 180 Tablet 3 08/16/2022 Active Dexcom G6 Drupal Php Developer Device Use as directed . Use to [...] 10/29/2022 Active Vitamin D (Ergocalciferol) 1.25 MG (13307 UT) Oral Capsule (Drisdol) Take 1 capsule [...] as of this encounter (statuses as of 06/02/2023) Active Problems Problem Noted Date MDD (major [...] as of this encounter (statuses as of 06/02/2023) Resolved Problems Problem Noted Date Resolved Date [...] as of this encounter (statuses as of 06/02/2023) Immunizations Name Administration Dates Next Due COVID-19 mRNA, LNP-s, No Pre serve, 2-Dose Series (Pfizer) 08/15/2021,01/23/2021,12/29/2020 Hepatitis B, 20+ yrs 06/29/2015,01/19/2015,01/19 Pneumococcal Conjugate Vacci ne, 20-valent (Igdhucw90) 06/27/2022 Pneumococcal Polysaccharide PPV23 (Pneumovax) 02/10/2007 Season [...] Miscellaneous Notes * Telephone Encounter - DONAVAN Rojo - 06/02/2023 10:56 AM EDT Patient scheduled with Dr. Geiger on 06/06/23. * Telephone Encounter - DONAVAN Rojo - 05/30/2023 12:54 PM EDT LMOM for patient to callback and schedule. * Telephone Encounter - Fanta Becerra LPN - 05/30/2023 11:05 AM EDT Left message for patient yesterday after 1600 and again this morning at 1105, left my direct line and requested callback. All documented in the INN encounter from 05/13, and will continue documentation there. Cailin Becerra LPN Intake Nurse Navigator General Surgery and Breast Clinic [facility] * Telephone Encounter - ALEXANDRIA Boyce - 05/29/2023 10:21 PM EDT Breast imaging updated per request (see other encounter). Please schedule for breast clinic visit (referral placed at recent visit). documented in this encounter Plan of Treatment Upcoming Encounters Date Type Specialty Care Team Description 06/06/2023 Office Visit General Surgery Robi Geiger MD [address] [place] [address] 06/25/2023 Office Visit [facility] [place] [address] [place] [address] 09/09/2023 Office Visit Neurology Sommer Che PA-C [address] [facility] [place] [address] 01/20/2024 Office Visit Family Medicine Favian Castellon DO [address] [place] [address] Scheduled Procedures Name Priority Associated Diagnoses Date/Ti [...] 0 06/2015, 01/19/2014 Pap Smear Discontinued 09/19/2020, 0 10/2016, 09/25/2012, Additional history exists Zoster Vaccines Completed 04/23/2022, 10/25/2021 Pneumococcal Vaccine: 65+ Years Completed 06/27/2022, 02/10/2007 VITAMIN D LEVEL ONCE IN A LIFETIME-USE SMARTSET# 12970 Completed 02/14/2023, 09/15/2019, 01/21/2019, Additional history exists GARDASIL-HPV IMMUNIZATION SERIES Aged Out No longer eligible based on patient's age to complete this topic HIV Screening Discontinued MENINGOCOCCAL (MENACTRA/MENVEO) Aged Out No longer eligible based on patient's age to complete this topic documented as of this encounter Medical Devices Implanted Type Area Flare Breaker Device Identifier Shelf Expiration Date Model / Serial / Lot Lens 24.0 Mx60e - [id number] - [id number] Implanted:Qty: 1 on 04/30/2018 by Martin Donnelly MD at OR [facility] Left: Eye BAUSCH [employer] LOMB 01/10/2021 [id number]-96.0 / [id number] / [id number] Mx60 +23.0d Implanted:Qty: 1 on 05/12/2018 by Martin Donnelly MD at OR [facility] Right: Eye 07/12/2020 DM4808.0 / [id number] / [id number] Duraclip 16mm Xlg Repostn - [id number] Implanted:Qty: 2 on 08/23/2022 by Sudhakar Martell MD at ENDOSCOPY [facility] [employer] JESSICA 11/28/2023 [id number] / / documented as of this encounter [...] and were consensually agreed upon. Care Teams Certified Pesticide Applicator Relationship Specialty Start Date End Date Favian Castellon DO [address] [place] [address] PCP - General Family Medicine 11/05/19 documented as of this encounter
--- OUTSIDE RECORDS SUMMARY | 2023-08-22 17:26 | External Medical Summary | Summary of Care ---
Author Name Unknown Organization [facility] Address [address] [facility] [place] [address] Phone [phone] Care Team Providers Care Documentation Spec Name Role Phone Favian Castellon Primary Care Provider Encounter Details Date Type Department Care Team Description 05/29/2023 Telephone Family Practice [facility] [address] [place] [address] Ledy Rodriguez CRNP [address] [place] [address] Allergies No known active allergiesdocumented as of [...] 180 Tablet 3 08/16/2022 Active Dexcom G6 Global Director Air And Climate Change Device Use as directed . Use to [...] 10/29/2022 Active Vitamin D (Ergocalciferol) 1.25 MG (70844 UT) Oral Capsule (Drisdol) Take 1 capsule [...] yrs 06/29/2015,01/19/2015,01/19 Pneumococcal Conjugate Vacci ne, 20-valent ([id number]) 06/27/2022 Pneumococcal Polysaccharide PPV23 (Pneumovax) 02/10/2007 Season [...] Nurse Navigator General Surgery and Breast Clinic [facility] * Telephone Encounter - ALEXANDRIA Boyce - 05/29/2023 10:21 PM EDT Breast imaging updated per request (see other encounter). Please schedule for breast clinic visit (referral placed at recent visit). documented in this encounter Plan of Treatment Upcoming Encounters Date Type Specialty Care Team Description 06/25/2023 Office Visit Pharmacy [facility] [place] [address] [place] [address] 09/09/2023 Office Visit Neurology Sommer Che PA-C [facility] [place] [address] 01/20/2024 Office Visit Family Medicine Favian Castellon DO [address] [place] [address] Scheduled Procedures Name Priority Associated Diagnoses Date/Ti [...] D LEVEL ONCE IN A LIFETIME-USE SMARTSET# 77140 Completed 02/14/2023, 09/15/2019, 01/21/2019, Additional history exists GARDASIL-HPV IMMUNIZATION SERIES Aged Out No longer eligible based on patient's age to complete this topic HIV Screening Discontinued MENINGOCOCCAL (MENACTRA/MENVEO) Aged Out No longer eligible based on patient's age to complete this topic documented as of this encounter Medical Devices Implanted Type Area Hourly Sign Language Interpreter Device Identifier Shelf Expiration Date Model / Serial / Lot Lens 24.0 Mx60e - [id number] - [id number] Implanted:Qty: 1 on 04/30/2018 by Martin Donnelly MD at OR [facility] Left: Eye BAUSCH [employer] LOMB 01/10/2021 [id number]-28.0 / [id number] / [id number] Mx60 +23.0d Implanted:Qty: 1 on 05/12/2018 by Martin Donnelly MD at OR [facility] Right: Eye 07/12/2020 TH7256.0 / [id number] / [id number] Duraclip 16mm Xlg Repostn - [id number] Implanted:Qty: 2 on 08/23/2022 by Sudhakar Martell MD at ENDOSCOPY [facility] [employer] JESSICA 11/28/2023 [id number] / / documented as of this encounter [...] and were consensually agreed upon. Care Teams Documentation Spec Relationship Specialty Start Date End Date Favian Castellon DO [address] [place] [address] PCP - General Family Medicine 11/05/19 documented as of this encounter
--- OUTSIDE RECORDS SUMMARY | 2023-08-22 17:26 | External Medical Summary | Summary of Care ---
Author Name Unknown Organization [facility] Address [address] [place] [address] Phone [phone] Care Team Providers Care Yarn Wrapper Name Role Phone Favian Castellon Primary Care Provider Reason for Visit * Reason Onset Date Comments Referral 05/13/2023 Encounter Details Date Type Department Care Team Description 05/13/2023 Telephone General Surgery, [place] [address] [place] [address] Services, Scheduling [address] [place] [address] Referral Allergies No known active allergiesdocumented as [...] 180 Tablet 3 08/16/2022 Active Dexcom G6 Electronic Lab Technician Device Use as directed . Use [...] 10/29/2022 Active Vitamin D (Ergocalciferol) 1.25 MG (87636 UT) Oral Capsule (Drisdol) Take 1 capsule [...] yrs 06/29/2015,01/19/2015,01/19 Pneumococcal Conjugate Vacci ne, 20-valent ([id number]) 06/27/2022 Pneumococcal Polysaccharide PPV23 (Pneumovax) 02/10/2007 Season [...] Becerra LPN - 05/30/2023 11:05 AM EDT Second attempt to contact pt - left message asking for return call. First attempted yesterday after 1600. Cailin Becerra LPN Intake Nurse Navigator General Surgery and Breast Clinic 05/30/2023 * Telephone Encounter - Cassy Mcdowell LPN - 05/13/2023 2:17 PM EDT Sent my g * Addendum Note - ALEXANDRIA Boyce - 05/13/2023 12:40 PM EDTAddended by: LEDY RUSSELL on: 05/13/2023 12:40 PM Modules accepted: [...] Nurse Navigator General Surgery and Breast Clinic [facility] documented in this encounter Plan of Treatment Upcoming Encounters Date Type Specialty Care Team Description 06/25/2023 Office Visit Pharmacy [facility] [place] [address] [place] [address] 09/09/2023 [facility] [address] 01/20/2024 Office Visit Family Medicine Favian Castellon DO [address] [place] [address] Scheduled Procedures Name Priority Associated Diagnoses Date/Ti [...] D LEVEL ONCE IN A LIFETIME-USE SMARTSET# 46798 Completed 02/14/2023, 09/15/2019, 01/21/2019, Additional history exists GARDASIL-HPV IMMUNIZATION SERIES Aged Out No longer eligible based on patient's age to complete this topic HIV Screening Discontinued MENINGOCOCCAL (MENACTRA/MENVEO) Aged Out No longer eligible based on patient's age to complete this topic documented as of this encounter Medical Devices Implanted Type Area Brick Carrier Device Identifier Shelf Expiration Date Model / Serial / Lot Lens 24.0 Mx60e - [id number] - [id number] Implanted:Qty: 1 on 04/30/2018 by Martin Donnelly MD at OR [facility] Left: Eye BAUSCH & LOMB 01/10/2021 [id number]-99.0 / [id number] / [id number] Mx60 +23.0d Implanted:Qty: 1 on 05/12/2018 by Martin Donnelly MD at OR [facility] Right: Eye 07/12/2020 SV9545.0 / [id number] / [id number] Duraclip 16mm [facility]lg [facility] - [id number] Implanted:Qty: 2 on 08/23/2022 by Sudhakar Martell MD at [facility] [employer] [facility] 11/28/2023 [id number] / / documented as of this encounter Results * (ABNORMAL) MAMMOGRAM DIAGNOSTIC JANET BILATERAL (05/29/2023 12:42 PM EDT) Anatomical Region Laterality Modality Breast Bilateral Mammography Narrative 05/29/2023 1:46 PM EDT Result MAMMOGRAM DIAGNOSTIC JANET BILATERAL US BREAST [...] is seen at the inferolateral margin. The mass is otherwise anechoic. Further evaluation is recommended as [...] mammography is recommended for the right breast. Digital breast tomosynthesis was performed. This digital mammogram has been analyzed with the computer aided detection system. The findings and recommendations were discussed with the patient who expressed understanding. The referring clinical service was also notified. This notice contains the results of your recent mammogram, including information about breast density. If your mammogram shows that your breast tissue is dense, you should know that dense breast tissue is a common finding and is not abnormal. Statistics show many women could have dense or highly dense breasts. Dense breast tissue can make it harder to find cancer on a mammogram and may be associated with an increased risk of cancer. This information about the result of your mammogram is given to you to raise your awareness and to inform your conversations with your physician. Together, you can decide which screening options are right for you, based on your mammogram results, individual risk factors or physical examination. A report of your results was sent to your physician. Your mammographic breast density on today's study is described above. There are four categories of breast density on mammography. Fatty breasts and those with scattered fibroglandular tissue are not considered dense. Heterogeneously dense or extremely dense tissue is considered "dense". Please understand that assessment of breast density may vary from year to year. This examination was performed at [facility], [address] [place] [id number]. Ledy [facility] documented in this encounter Visit Diagnoses Diagnosis Lump in upper outer quadrant of left breast- Primary Encounter for screening mammogram for breast cancer Lump in upper outer quadrant of left breast Encounter for screening mammogram for breast cancer documented in this encounter Advance Directives Latest [...] and were consensually agreed upon. Care Teams Yarn Wrapper Relationship Specialty Start Date End Date Favian Castellon DO [address] [place] [address] PCP - General Family Medicine 11/05/19 documented as of this encounter
--- OUTSIDE RECORDS SUMMARY | 2023-08-22 17:27 | External Medical Summary ---
Author Name Unknown Address Unknown Organization K0G:[facility] [place] [address] Laboratory Report Ordering Provider Test Date Status DREW HALE 05/13/2023 08:57:20 Final Observation Date Value Abnormality Reference (Units ) Status BUN 05/13/2023 08:57:20 21 Above high normal 6-20 (mg/dL) Final Creatinine 05/13/2023 08:57:20 0.7 0.5-1.0 (mg/dL) Final Glomerular filtration rate/1.73 sq M.predicted [Volume Rate/Area] in Serum, Plasma or Blood by Creatinine-based formula (CKD-EPI) 05/13/2023 08:57:20 >90 >=60 (mL/min) Final eGFR is calculated based on the CKD-EPI 2020 equation SODIUM 05/13/2023 08:57:20 141 135-146 (m mol/L) Final Potassium 05/13/2023 08:57:20 4.5 3.5-5.1 (m mol/L) Final Cl 05/13/2023 08:57:20 102 98-107 (mm ol/L) Final CO2 05/13/2023 08:57:20 27 22-32 (mmo l/L) Final Anion gap 05/13/2023 08:57:20 12 7-15 (mmol /L) Final Glucose 05/13/2023 08:57:20 193 Above high normal 70 -120 (mg/dL) Final Calcium 05/13/2023 08:57:20 10.2 8.4-10.2 ( mg/dL) Final Performing Location [facility] [address] [place] [address]
--- OUTSIDE RECORDS SUMMARY | 2023-08-22 17:27 | External Medical Summary | Summary of Care ---
Author Name Unknown Organization [facility] Address [address] [facility] [place] [address] Phone [phone] Care Team Providers Care Director Of Customer Service Name Role Phone Lesly Castellon DO Primary Care Provider Reason for Visit * Reason Comments eRx-Medication Refill Encounter Details Date Type Department Care Team Description 05/11/2023 Refill Family Practice [facility] [address] [place] [phone] Lesly Castellon DO [address] [place] [id number] HTN, goal below 130/80 Allergies No known active allergiesdocumented as of [...] Dx E11.9 400 Each 3 2 Active Trulicity 4.5 MG/0.5ML Subcutaneous Solution Pen-injector (Dulaglutide) Inject 1 pen once weekly 6 mL 3 2 Active Furosemide 20 MG Oral Tablet (Lasix)Indications: Localized edema TAKE 1 TABLET BY MOUTH TWICE DAILY NEEDED FOR FEET SWELLING, FLUID ACCUMULATION, OR WEIGHT GAIN 180 Tablet 3 2 Active Dexcom G6 Painter Apprentice Device Use as directed . Use to [...] 3 Active Vitamin D (Ergocalciferol) 1.25 MG (67340 UT) Oral Capsule (Drisdol) Take 1 capsule by mouth once a week 12 Capsule 0 3 Active Dexcom G7 Sensor Use to test blood sugar 3 Each 11 3 Active Losartan Potassium-HCTZ 100-25 MG Oral Tablet (Hyzaar)Indications :HTN, goal below 130/80 Take 1 tablet by mouth once daily 90 Tablet 3 3 Active Losartan Potassium-HCTZ 100-25 MG Oral Tablet (Hyzaar)Indications :HTN, goal below 130/80 Take 1 tablet by mouth once daily 90 Tablet 1 2 05/13/20 23 Discontinued documented as of this encounter (statuses [...] mRNA, LNP-s, No Pre serve, 2-Dose Series ([employer]) 08/15/2021,01/23/2021,12/29/2020 Hepatitis B, 20+ yrs 06/29/2015,01/19/2015,01/19 Pneumococcal Conjugate Vacci ne, 20-valent (Xzdllaf58) 06/27/2022 Pneumococcal Polysaccharide PPV23 (Pneumovax) 02/10/2007 Seasonal [...] encounter Miscellaneous Notes * Telephone Encounter - Lauren Thomspon, [facility] - 05/13/2023 11:11 AM EDT Signed Prescriptions: Disp Refills Losartan Potassium-HCTZ 100-25 MG Oral Tab*90 Tab*3 Sig: Take 1tablet by mouth once dailyAuthorizing Provider: LESLY CASTELLON User: LAUREN THOMPSON documented in this encounter Plan of Treatment Upcoming Encounters Date Type Specialty Care Team Description 05/14/2023 Hospital Encounter Surgery Raimundo An, DO [address] [place] [address] 05/14/2023 Surgery Surgery Raimundo An, DO [address] [place] [address] INJECTION SPINE LUMBAR OR SACRAL 06/25/2023 Office Visit Pharmacy [facility] [place] [address] [place] [address] 09/09/2023 Office Visit Neurology Sommer Che PA-C [address] [place] [address], [place] [address] 01/20/2024 Office Visit Family Medicine Lesly Casteloln, [address] [place] [address] Scheduled Procedures Name Priority Associated Diagnoses Date/Ti [...] D LEVEL ONCE IN A LIFETIME-USE SMARTSET# 91672 Completed 02/14/2023, 09/15/2019, 01/21/2019, Additional history exists GARDASIL-HPV IMMUNIZATION SERIES Aged Out No longer eligible based on patient's age to complete this topic HIV Screening Discontinued MENINGOCOCCAL (MENACTRA/MENVEO) Aged Out No longer eligible based on patient's age to complete this topic documented as of this encounter Medical Devices Implanted Type Area Brush Holder Assembler Device Identifier Shelf Expiration Date Model / Serial / Lot Lens 24.0 Mx60e - [id number] - [id number] Implanted:Qty: 1 on 04/30/2018 by Martin Donnelly MD at OR [facility] Left: Eye BAUSCH & LOMB 01/10/2021 [id number]-03.0 / [id number] / [id number] Mx60 +23.0d Implanted:Qty: 1 on 05/12/2018 by Martin Donnelly MD at OR [facility] Right: Eye 07/12/2020 [id number] / [id number] / [id number] Duraclip 16mm Xlg Repostn - [id number] Implanted:Qty: 2 on 08/23/2022 by Sudhakar Martell MD at [facility] 11/28/2023 [id number] / / documented as of this encounter Visit Diagnoses Diagnosis HTN, goal below 130/80 Unspecified essential hypertension Lumbar radiculopathy Thoracic or lumbosacral neuritis or [...] consensually agreed upon. Care Teams Director Of Customer Service Relationship Specialty Start Date End Date Lesly Castellon DO [address] [place] [address] PCP - General Family Medicine 11/05/19 documented as of this encounter
--- OUTSIDE RECORDS SUMMARY | 2023-08-22 17:27 | External Medical Summary | Summary of Care ---
Author Name Unknown Organization [facility] Address [address] [facility] [place] [address] Phone [phone] Care Team Providers Care Supervising Chef Name Role Phone Favian Castellon DO Primary Care Provider Reason for Visit * Reason Onset Date Comments Follow Up 04/16/2023 Encounter Details Date Type Department Care Team Description 04/16/2023 Telephone Interventional [facility] Center, [facility] [address] [place] [address] CousinsFloydDO [address] [place] [address] Follow Up Allergies No known active allergiesdocumented as of this encounter (statuses as of 04/16/2023) Medications Medication Sig Dispensed Refills Start Date [...] once weekly 6 mL 3 03/28/2022 Active Escitalopram Oxalate 20 MG Oral Tablet (Lexapro)Indication s:MDD (major depressive disorder), recurrent episode, moderate (HCC) Take 1 tablet by mouth once daily 90 Tablet 3 05/29/2022 Active Additional Information Patient not taking.Reported on 10/29/2022 Furosemide 20 MG Oral Tablet (Lasix)Indications: Localized edema TAKE 1 TABLET BY MOUTH TWICE DAILY NEEDED FOR FEET SWELLING, FLUID ACCUMULATION, OR WEIGHT GAIN 180 Tablet 3 08/16/2022 Active Insulin Glargine 100 UNIT/ML Subcutaneous Solution Pen-injector (Lantus) Inject under the skin 35 Units before bedtime. 30 mL 3 08/16/2022 Active Takumii [place] G6 Senior Microsoft Consultant Device Use as directed . Use to test blood sugar 1 Each 0 09/19/2022 Active Dexcom G6 Transmitter Use as directed . Use 1 transmitter every 90 days to test blood sugar 1 Each 3 09/19/2022 Active Additional Information Patient not taking.Reported on 10/29/2022 Atorvastatin Calcium 80 MG Oral Tablet (Lipitor) Take 1 tablet by mouth once daily 90 Tablet 1 09/30/2022 Active Losartan Potassium-HCTZ 100-25 MG Oral Tablet [...] the morning. 90 Tablet 3 10/29/2022 Active NovoLOG FlexPen 100 UNIT/ML Subcutaneous Solution Pen-injector INJECT 5 UNITS SUBCUTANEOUSLY IN THE MORNING, 10 UNITS AT LUNCH, AND 15 UNITS AT SUPPER 15 mL 11 11/14/2022 Active Dulaglutide 1.5 MG/0.5ML Subcutaneous Solution Pen-injector (Trulicity) Inject 1.5 mg under the skin once a week. 2 mL 11 11/14/2022 Active Alendronate Sodium 70 MG Oral Tablet (Fosamax) Take 1 Tablet by mouth once a week. with 8 oz. water 30 minutes before first meal of the day. Remain upright for 30 min after taking tablet. 15 Tablet 5 11/25/2022 Active Vitamin D (Ergocalciferol) 1.25 MG (35433 UT) Oral Capsule (Drisdol) Take 1 capsule by mouth once a week 12 Capsule 0 11/28/2022 Active Dexcom G7 Sensor Use to test blood sugar 3 Each 11 03/26/2023 Active documented as of this encounter (statuses as of 04/16/2023) Active Problems Problem Noted Date MDD (major [...] as of this encounter (statuses as of 04/16/2023) Resolved Problems Problem Noted Date Resolved Date [...] as of this encounter (statuses as of 04/16/2023) Immunizations Name Administration Dates Next Due COVID-19 mRNA, LNP-s, No Pre serve, 2-Dose Series (Self-A-r-T) 08/15/2021,01/23/2021,12/29/2020 Hepatitis B, 20+ yrs 06/29/2015,01/19/2015,01/19 Pneumococcal Conjugate Vacci ne, 20-valent ([id number]) 06/27/2022 Pneumococcal Polysaccharide PPV23 (Pneumovax) 02/10/2007 Seasonal [...] got money to buy more. Never true 04/22/2022 Within the past 12 months, t he food you bought just didn't last and you didn't have money to get more. Never true 04/22/2022 Sex Assigned at Date Recorded Female 09/19/2020 8:[address] Job Start Date Occupation Industry Not on file Not on file Not on file documented as of this encounter Miscellaneous Notes * Addendum Note - Floyd Servin DO - 04/16/2023 9:13 AM EDTAddended by: FLOYD SERVIN on: 04/16/2023 09:13 AM Modules accepted: Orders * Telephone Encounter - Jolanta Mcnair - 04/16/2023 9:06 AM EDT Patient states she had 70-80% relief from her injection. The pain came back last month and she is requesting another injection. documented in this encounter Plan of Treatment Upcoming Encounters Date Type Specialty Care Team Description 05/14/2023 Office Visit Family Medicine Favian Castellon DO [address] [place] [address] 06/25/2023 Office Visit Pharmacy [facility] [place] [address] [place] [address] 09/09/2023 [facility] [address] Scheduled Orders Name Type Priority Associated Diagnoses Orde r Schedule INJECT DX/THER SUBSTANCE INTERLAMINAR LUMBAR/SACRAL W IMAGE GUIDE Procedures Routine Lumbar radicular pain Expected: 04/30/2023, Expires: 05/17/2024 Scheduled Procedures Name Priority Associated Diagnoses Date/Ti me COLONOSCOPY FLEXIBLE PROXIMAL DIAGNOSTIC Recall History of colon polyps Health Maintenance Due Date Last Done Comments COVID-19 Vaccine (4 - Pfizer series) 10/10/2021 08/15/2021, 01/23/2021, 12/29/2020 DIABETES-FOOT EXAM 04/23/2023 04/23/2022, 0 04/24/2021, 12/23/2019, Additional history exists Mammogram 05/28/2023 05/28/2022, 03/14, 04/10/2021, Additional history exists DIABETES-EYE EXAM 05/31/2023 05/31/2022, , 08/11/2020, Additional history exists Influenza Vaccine (FLU shot) (#1) 2023 10/13/2022, 08/17/2020, 07/01/2019, Additional history exists HbA1c 09/24/2023 03/25/2023, 12/12, 09/18/2022, Additional history exists Depression Screening, Annual for Pts 12 and Over 10/29/2023 10/29/2022 Albumin/Creatinine Ratio 01/08/2024 023, 06/26/2022, 01/02/2022, Additional history exists GFR 01/08/2024 01/07/2023, 06/13, 01/02/2022, Additional history exists TSH 01/08/2024 01/07/2023, 06/13, 07/03/2021, Additional history exists DXA Scan 12/18/2024 12/18/2022, [...] D LEVEL ONCE IN A LIFETIME-USE SMARTSET# [id number] Completed 02/14/2023, 09/15/2019, 01/21/2019, Additional history exists GARDASIL-HPV IMMUNIZATION SERIES Aged Out No longer eligible based on patient's age to complete this topic HIV Screening Discontinued MENINGOCOCCAL (MENACTRA/MENVEO) Aged Out No longer eligible based on patient's age to complete this topic documented as of this encounter Medical Devices Implanted Type Area Log Chain Worker Device Identifier Shelf Expiration Date Model / Serial / Lot Lens 24.0 Mx60e - [id number] - [id number] Implanted:Qty: 1 on 04/30/2018 by Martin Donnelly MD at OR [facility] Left: Eye BAUSCH & LOMB 01/10/2021 [id number]-40.0 / [id number] / [id number] Mx60 +23.0d Implanted:Qty: 1 on 05/12/2018 by Martin oDnnelly MD at OR [facility] Right: Eye 07/12/2020 [id number] / [id number] / [id number] Duraclip 16mm Xlg Repostn - [id number] Implanted:Qty: 2 on 08/23/2022 by Sudhakar Martell MD at ENDOSCOPY [facility] [email or web address] JESSICA 11/28/2023 [id number] / / documented as of this encounter Visit Diagnoses Diagnosis Lumbar radicular pain- Primary Thoracic or lumbosacral neuritis or radiculitis, unspecified [...] and were consensually agreed upon. Care Teams Supervising Chef Relationship Specialty Start Date End Date Favian Castellon DO [address] [place] [address] PCP - General Family Medicine 11/05/19 documented as of this encounter
--- OUTSIDE RECORDS SUMMARY | 2023-08-22 17:27 | External Medical Summary | Summary of Care ---
Author Name Unknown Organization [facility] Address [address] [place] [address] Phone [phone] Care Team Providers Care German Professor Name Role Phone Favian Castellon Primary Care Provider Reason for Visit * Reason Onset Date Comments Referral 05/13/2023 Encounter Details Date Type Department Care Team Description 05/13/2023 Telephone General Surgery, [place] [address] [place] [address] Services, Scheduling [address] [place] [address] Referral Allergies No known active allergiesdocumented as [...] 180 Tablet 3 08/16/2022 Active Dexcom G6 Wrapper Leaf Inspector Device Use as directed . Use to [...] 10/29/2022 Active Vitamin D (Ergocalciferol) 1.25 MG (98913 UT) Oral Capsule (Drisdol) Take 1 capsule [...] yrs 06/29/2015,01/19/2015,01/19 Pneumococcal Conjugate Vacci ne, 20-valent (Tcscayr26) 06/27/2022 Pneumococcal Polysaccharide PPV23 (Pneumovax) 02/10/2007 Seasonal [...] encounter Miscellaneous Notes * Addendum Note - ALEXANDRIA Boyce - [...] Nurse Navigator General Surgery and Breast [facility] documented in this encounter Plan of Treatment Upcoming Encounters Date Type Specialty Care Team Description 05/14/2023 Hospital Encounter Surgery Raimundo An DO [address] [place] [id number] 05/14/2023 Surgery Surgery Raimundo An DO [address] [place] [address] INJECTION SPINE LUMBAR OR SACRAL 06/25/2023 Office Visit Pharmacy [facility] [place] [address] [place] [address] 09/09/2023 Office Visit Neurology Sommer Che PA-C [address] [place] [address] 01/20/2024 Office Visit Family Medicine Favian Castellon DO [address] [place] [address] Scheduled Orders Name Type Priority Associated Diagnoses [...] D LEVEL ONCE IN A LIFETIME-USE SMARTSET# [id number] Completed 02/14/2023, 09/15/2019, 01/21/2019, Additional history exists GARDASIL-HPV IMMUNIZATION SERIES Aged Out No longer eligible based on patient's age to complete this topic HIV Screening Discontinued MENINGOCOCCAL (MENACTRA/MENVEO) Aged Out No longer eligible based on patient's age to complete this topic documented as of this encounter Medical Devices Implanted Type Area Portal Architect Device Identifier Shelf Expiration Date Model / Serial / Lot Lens 24.0 Mx60e - [id number] - [id number] Implanted:Qty: 1 on 04/30/2018 by Martin Donnelly MD at OR [facility] Left: Eye BAUSCH & LOMB 01/10/2021 [id number]-80.0 / [id number] / [id number] Mx60 +23.0d Implanted:Qty: 1 on 05/12/2018 by Martin Donnelly MD at OR [facility] Right: Eye 07/12/2020 VA1230.0 / [id number] / [id number] Duraclip 16mm Xlg Repostn - [id number] Implanted:Qty: 2 on 08/23/2022 by Sudhakar Martell MD at [facility] CONMED JESSICA 11/28/2023 [id number] / / documented as of this encounter [...] and were consensually agreed upon. Care Teams German Professor Relationship Specialty Start Date End Date Favian Castellon DO [address] [place] [id number] PCP - General Family Medicine 11/05/19 documented as of this encounter
--- OUTSIDE RECORDS SUMMARY | 2023-08-22 17:27 | External Medical Summary ---
Author Name Unknown Address Unknown Organization K01:[facility] - [address] [place] [address] Laboratory Report Ordering Provider Test Date Status ALEXIARICHCR 05/13/2023 08:57:20 Final Observation Date Value Abnormality Reference (Units ) Status Ferritin 05/13/2023 08:57:20 120 13-150 (ng /mL) Final Postmenopausal women have hi gher ferritin levels than pre-menopausal women. The above reference interval is based on pre-menopausal women. Performing Location [facility] - [address] [place] [address]
--- OUTSIDE RECORDS SUMMARY | 2023-08-22 17:27 | External Medical Summary | Summary of Care ---
Author Name Unknown Organization [facility] Address [address] [facility] [place] [address] Phone [phone] Care Team Providers Care Political Organizer Name Role Phone Favian Castellon DO Primary Care Provider Reason for Visit * Reason Onset Date Comments Follow Up 04/16/2023 Encounter Details Date Type Department Care Team Description 04/16/2023 Telephone Interventional Pain Center, [facility] [address] [place] [address] CousinsFloydDO [address] [place] [address] Follow Up Allergies No known active allergiesdocumented [...] before bedtime. 30 mL 3 08/16/2022 Active Vizsafe G6 Salvage Repairer Device Use as directed . Use to [...] 11/25/2022 Active Vitamin D (Ergocalciferol) 1.25 MG (80185 UT) Oral Capsule (Drisdol) Take 1 capsule [...] mRNA, LNP-s, No Pre serve, 2-Dose Series (Content Circles) 08/15/2021,01/23/2021,12/29/2020 Hepatitis B, 20+ yrs 06/29/2015,01/19/2015,01/19 Pneumococcal Conjugate Vacci ne, 20-valent ([id number]) 06/27/2022 Pneumococcal Polysaccharide PPV23 (Pneumovax) 02/10/2007 Seasonal [...] Favian Castellon DO [address] [place] [address] 06/25/2023 Office Visit Pharmacy [facility] [place] [address] [place] [address] 09/09/2023 [facility] [address] [facility] [address] Scheduled Orders Name Type Priority Associated Diagnoses [...] D LEVEL ONCE IN A LIFETIME-USE SMARTSET# [id number] Completed 02/14/2023, 09/15/2019, 01/21/2019, Additional history exists GARDASIL-HPV IMMUNIZATION SERIES Aged Out No longer eligible based on patient's age to complete this topic HIV Screening Discontinued MENINGOCOCCAL (MENACTRA/MENVEO) Aged Out No longer eligible based on patient's age to complete this topic documented as of this encounter Medical Devices Implanted Type Area Clam Dredge Boat Captain Device Identifier Shelf Expiration Date Model / Serial / Lot Lens 24.0 Mx60e - [id number] - [id number] Implanted:Qty: 1 on 04/30/2018 by Martin Donnelly MD at OR [facility] Left: Eye BAUSCH & LOMB 01/10/2021 [id number] / [id number] / [id number] Mx60 +23.0d Implanted:Qty: 1 on 05/12/2018 by Martin Donnelly MD at OR [facility] Right: Eye 07/12/2020 [id number] / [id number] / [id number] Duraclip 16mm Xlg Repostn - [id number] Implanted:Qty: 2 on 08/23/2022 by Sudhakar Martell MD at ENDOSCOPY [facility] Sphere 3d JESSICA 11/28/2023 [id number] / / documented as of this encounter [...] and were consensually agreed upon. Care Teams Political Organizer Relationship Specialty Start Date End Date Favian Castellon DO [address] [place] [address] PCP - General Family Medicine 11/05/19 documented as of this encounter
--- OUTSIDE RECORDS SUMMARY | 2023-08-22 17:27 | External Medical Summary | Summary of Care ---
Author Name Unknown Organization [facility] Address [address] [place] [address] Phone [phone] Care Team Providers Care Warehouse Attendant Name Role Phone Favian Castellon DO Primary Care Provider Reason for Referral * Evaluate & Treat - Unlimited Visits (Within 10 days (routine)) - Pending Review Specialty Diagnoses / Procedures Referred By Suellen mercer Referred To Contact General Surgery - Breast Surgery / Surgical Oncology Diagnoses Mass of upper outer quadrant of left breast Ledy Rodriguez CRNP [address] [place] [address] Referral ID Status Reason Start Date Expiration Date Visits Requested Visits Authorized [id number] Pending Review Specialty Services Required 05/13/[phone] Question Answer Referral Priority Within 10 days (routine) Is there suspicion that patient has Breast Cancer? No - she has a large, uncomfortable simple cyst Does the patient have 1st degree relative with history of breast cancer? Yes - mom diagnosed in 60s Reason for Visit * Reason Comments Return Visit 6 month Encounter Details Date Type Department Care Team Description 05/13/2023 Office Visit Family [facility] [address] [place] [id number] Ledy Rodriguez CRNP [address] [place] [address] Encounter for long-term (current) use of medications*; DM type 2 nursing care encounter ([facility]); Mass of upper outer quadrant of left breast; HTN, goal below 130/80; Acquired hypothyroidism; MDD (major depressive disorder), recurrent episode, moderate ([facility]); B12 deficiency; Dyslipidemia; Lumbar radiculopathy; Type 2 diabetes mellitus with hemoglobin A1c goal of less than 8.0% ([facility]); Lower leg edema; Nocturnal leg cramps Allergies No known active allergiesdocumented as of this encounter (statuses as of 05/13/2023) Medications Medication Sig Dispensed Refills Start Date End Date Status B-D Ultrafine III, 5MM, Pen MISC Use daily with insulin pen 1 Box Dosing Unit 11 02/01/20 16 Active aspirin 81 MG chewable tabletIndications: DM type 2, not at goal ([facility]) Take 1 Tab by mouth daily. with food. 100 Tab 5 02/27/20 16 Active Insulin Pen Needle 31G X 5 MM Use with Lantus and Novolog 4 times a day. Can substitute for preferred brand Dx E11.9 400 Each 3 01/19/20 22 Active Trulicity 4.5 MG/0.5ML Subcutaneous Solution Pen-injector (Dulaglutide) Inject 1 pen once weekly 6 mL 3 03/28/20 22 Active Furosemide 20 MG Oral Tablet (Lasix)Indications :Localized edema TAKE 1 TABLET BY MOUTH TWICE DAILY NEEDED FOR FEET SWELLING, FLUID ACCUMULATION, OR WEIGHT GAIN 180 Tablet 3 08/16/20 22 Active Dexcom G6 Clean Room Operator Device Use as directed . Use to test blood sugar 1 Each 0 09/19/20 22 Active Atorvastatin Calcium 80 MG Oral Tablet (Lipitor) Take 1 tablet by mouth once daily 90 Tablet 1 09/30/20 22 Active Losartan Potassium-HCTZ 100-25 MG Oral Tablet [...] 23 Active Vitamin D (Ergocalciferol) 1.25 MG (90987 UT) Oral Capsule (Drisdol) Take 1 capsule by mouth once a week 12 Capsule 0 11/28/19 23 Active Dexcom G7 Sensor Use to test blood sugar 3 Each 11 03/26/20 23 Active Semglee (yfgn) 100 UNIT/ML Subcutaneous [...] SUPPER 15 mL 11 05/13/20 23 Active Escitalopram Oxalate 10 MG Oral Tablet (Lexapro)Indicatio ns:MDD (major depressive disorder), recurrent episode, moderate (HCC) Take one tablet by mouth daily for 2-4 weeks, then decrease to a half tablet by mouth daily for 2-4 weeks, then stop the medication 30 Tablet 1 05/13/20 23 Active Escitalopram Oxalate 20 MG Oral Tablet (Lexapro)Indicatio ns:MDD (major depressive disorder), recurrent episode, moderate (HCC) Take 1 tablet by mouth once daily 90 Tablet 3 05/29/20 22 023 Discontinued Insulin Glargine 100 UNIT/ML Subcutaneous Solution Pen-injector (Lantus) Inject under the skin 35 Units before bedtime. 30 mL 3 08/16/20 22 023 Discontinued(Me dication List Clean Up) Dexcom G6 Transmitter Use as directed . Use 1 transmitter every 90 days to test blood sugar 1 Each 3 09/19/20 22 023 Discontinued(Me dication List Clean Up) NovoLOG FlexPen 100 UNIT/ML Subcutaneous Solution Pen-injector INJECT 5 UNITS SUBCUTANEOUSLY IN THE MORNING, 10 UNITS AT LUNCH, AND 15 UNITS AT SUPPER 15 mL 11 11/14/19 23 023 Discontinued Dulaglutide 1.5 MG/0.5ML Subcutaneous Solution Pen-injector (Trulicity) Inject 1.5 mg under the skin once a week. 2 mL 11 11/14/19 23 023 Discontinued Alendronate Sodium 70 MG Oral Tablet (Fosamax) Take 1 Tablet by mouth once a week. with 8 oz. water 30 minutes before first meal of the day. Remain upright for 30 min after taking tablet. 15 Tablet 5 11/25/19 23 023 Discontinued(Re fill) documented as of this encounter (statuses as [...] mRNA, LNP-s, No Pre serve, 2-Dose Series (Manflu) 08/15/2021,01/23/2021,12/29/2020 Hepatitis B, 20+ yrs 06/29/2015,01/19/2015,01/19 Pneumococcal Conjugate Vacci ne, 20-valent ([id number]) 06/27/2022 Pneumococcal Polysaccharide PPV23 (Pneumovax) 02/10/2007 Seasonal [...] Sign Reading Time Taken Comments Blood Pressure 122/76 05/13/2023 8:14 AM EDT Pulse 77 05/13/2023 8:14 AM EDT Temperature 36.7 C (98.1 F) 05/13/2023 8:14 AM ED T Respiratory Rate - - Oxygen Saturation 98% 05/13/2023 8:14 AM EDT Inhaled Oxygen Concentration - - Weight 74.8 kg (164 lb 14.4 oz) 05/13/2023 8:14 AM EDT Height - - Body Mass Index 32.2 08/23/2022 7:43 AM EST documented in this encounter Patient Instructions * Patient Instructions* Cassy Mcdowell LPN - 05/13/2023 8:06 AM EDT Diabetes: Keeping Feet Healthy Inspect your feet every day for signs of a problem. Diabetes can damage nerves in your feet and cause neuropathy. This condition makes it hard for you to feel injuries or sore spots. Diabetes can also change blood flow, making it harder for small problems, like a blister, to heal properly. In fact, minor injuries can quickly become serious infections that send you to the hospital. Practice self-care to protect your feet and keep them healthy. Take Special Care Inspect your feet daily for problems such as redness, blisters, cracks, dry skin, or numbness. Use a mirror to see the bottoms of your feet. Or, ask for help. Manage your diabetes. Monitor and control your blood sugar. Take all your medications as prescribed. Avoid walking barefoot, even indoors. Wash your feet with warm water and mild soap. Dry well, especially between toes. Dont treat corns or calluses yourself. Talk to your doctor or floor representative (a doctor who specializes in foot care) if you need assistance trimming your toenails. Use moisturizing cream or lotion if you have dry skin, but dont use it between toes. Dont use heating pads on your feet. If you have neuropathy, you could get a burn and not feel it. Stop smoking. Smoking restricts blood flow and can make it harder for wounds to heal. Have Regular Checkups Foot problems can develop quickly. So be sure to follow your healthcare teams schedule for regular checkups. During office visits, take off your shoes and socks as soon as you get in the exam room. Ask your healthcare provider to examine your feet for problems. This will make it easier to find and treat small skin irritations before they get worse. Regular checkups can also help keep track of the blood flow and feeling in your feet. If you have neuropathy, you may need to have checkups more often. Wear Proper Footwear Wearing proper footwear is very important. If areas of your feet have been damaged by too much pressure, your healthcare provider may recommend changing your footwear. In some cases, avoiding high heels or tight work boots may be all thats needed. Or, your healthcare provider may recommend special shoes or custom inserts. These help protect your feet and keep existing irritations from getting worse. If you need special footwear, ask your healthcare provider if you qualify for [employer] diabetic shoe program. Make Sure Shoes and Socks Fit Any pair of shoes--new or old--should feel comfortable as soon as you put them on. There shouldnt be any rubbing when you walk. Wear the right shoe for any activity. For instance, a running shoe is designed to keep your feet injury-free while jogging. Buy shoes at the end of the day, when your feet are larger. Make sure they provide support without feeling too loose. Make sure your socks fit, t oo. Wear soft, seamless, well-padded socks for activity. Cotton or microfiber socks are best to help to absorb sweat. To protect your feet, avoid shoes that are open-toed or open-heeled. If you have questions about what kinds of shoes and socks are best, talk to your healthcare team. Get Regular Exercise Regular exercise improves blood flow in your feet. It also increases foot strength and flexibility.Gentle exercises, like walking or riding a stationary bicycle, are best. You can also do special foot exercises. Just be sure to talk with your healthcare provider before starting any exercise program. Also mention if any exercise causes pain, redness, or other signs of foot problems. Note: If you have any kind of break in the skin of your foot or ankle, keep the area clean. Then call your doctor--especially if the area doesnt appear to be healing. 3518-0395 [employer], [address] [place] [address]. All rights reserved. This information is not intended as a substitute for professional medical care. Always follow your healthcare professional's instructions. documented in this encounter Progress Notes * ALEXANDRIA Boyce - 05/13/2023 8:47 AM EDT Images from the original note were not included. History of Present Illness Aixa Cruz is a 67 year old female that presents for Return Visit (6 month ) HPI Here for routine follow up. Having nocturnal leg cramps as well as a tightness in both legs with some mild edema. She's been taking lasix daily instead of PRN. She is following with [facility] for diabetes. Glucose has been improving, however she hasn't had her dexcom on for a couple of weeks because the new version is not adhering to her skin. She would like a referral to a breast surgeon to discuss removal of a cyst on her breast. It is benign but it is uncomfortable and painful. Her mother had breast cancer and it makes her nervous to have such a large cyst on her breast. She'd like to wean off of her lexapro. She went on it during a stressful time in her life many years ago and feels that things are going well now. She is following with Dr An for low back injections. She is also doing PT and massages every 3weeks. She follows with [facility]. Outpatient Medications Marked as Taking for the 05/13/23 encounter (Office Visit) with ALEXANDRIA Boyce Medication Sig Alendronate Sodium 70 MG Oral Tablet (Fosamax) [...] for 2-4 weeks, then stop the medication NovoLOG FlexPen 100 UNIT/ML Subcutaneous Solution Pen-injector INJECT 5 UNITS SUBCUTANEOUSLY INTHE MORNING, 10 UNITS AT LUNCH, AND 20 UNITS AT SUPPER Semglee (yfgn) 100 UNIT/ML Subcutaneous Solution Pen-injector INJECT 35 UNITS SUBCUTANEOUSLY ATBEDTIME Dexcom G7 Sensor Use to test blood sugar Vitamin D (Ergocalciferol) 1.25 MG (10589 UT) Oral Capsule (Drisdol) Take 1 capsule by mouth once a week Atenolol 25 MG Oral Tablet (Tenormin) Take 1 Tablet by mouth in the morning. Levothyroxine Sodium 100 MCG Oral Tablet TAKE 1 TABLET BY MOUTH IN THE MORNING 30 MIN PRIOR TO BREAKFAST OR OTHER MEDS Atorvastatin Calcium 80 MG Oral Tablet (Lipitor) Take 1 tablet by mouth once daily Losartan Potassium-HCTZ 100-25 MG Oral Tablet (Hyzaar) Take 1 tablet by mouth once daily Dexcom G6 Clean Room Operator Device Use as directed . Use [...] Pen MISC Use daily with insulin pen Physical Exam Vitals: 05/13/23 0814 Temp: 36.7 C (98.1 F) Pulse: 77 SpO2: 98% BP: 122/76 Physical Exam Vitals reviewed. Constitutional: Appearance: Normal appearance. HENT: Head: Normocephalic and atraumatic. Right Ear: Tympanic membrane, ear canal and external ear normal. Left Ear: Tympanic membrane, ear canal and external ear normal. Nose: Nose normal. Mouth/Throat: Mouth: Mucous membranes are moist. Eyes: Extraocular Movements: Extraocular movements intact. Conjunctiva/sclera: Conjunctivae normal. Pupils: Pupils are equal, round, and reactive to light. Cardiovascular: Rate and Rhythm: Normal rate and regular rhythm. Heart sounds: Normal heart sounds. Pulmonary: Effort: Pulmonary effort is normal. Breath sounds: Normal breath sounds. Abdominal: General: Bowel sounds are normal. There is no distension. Palpations: Abdomen is soft. Tenderness: There is no abdominal tenderness. Musculoskeletal: General: No swelling or tenderness. Cervical back: Neck supple. Right lower leg: No edema. Left lower leg: No edema. Lymphadenopathy: Cervical: No cervical adenopathy. Skin: General: Skin is warm and dry. Capillary Refill: Capillary refill takes less than 2 seconds. Neurological: Mental Status: She is alert and oriented to person, place, and time. Psychiatric: Behavior: Behavior normal. Assessment and Plan Encounter for long-term (current) use of medications Discussed relevant HM topics DM type 2 nursing care encounter (HCC) - DIABETES FOOT EXAM Mass of upper outer quadrant of left breast - HIGH RISK BREAST CLINIC, BREAST SURGERY REFERRAL OP HTN, goal below 130/80 At goal, continue current mgmt - BASIC METABOLIC PANEL; Future Acquired hypothyroidism Stable on recent labs MDD (major depressive disorder), recurrent episode, moderate ([facility]) Discussed indications for follow up; return if symptoms worsen - Escitalopram Oxalate 10 MG Oral Tablet (Lexapro); Take one tablet by mouth daily for 2-4 weeks, then decrease to a half tablet by mouth daily for 2-4 weeks, then stop the medication B12 deficiency Dyslipidemia Lumbar radiculopathy Managing as above Type 2 diabetes mellitus with hemoglobin A1c goal of less than 8.0% ([facility]) - BASIC METABOLIC PANEL; Future Lower leg edema Nocturnal leg cramps Consider gabapentin 300mg at bedtime if no improvement with the B-complex and benadryl discussed attoday's visit - BASIC METABOLIC PANEL; Future - FERRITIN; Future Wrap-Up Follow Up: Return in about 8 months (around 01/12/2024) for Return with Physician. | For: Return withPhysician | Check-out note: Labs today Schedule breast clinic Time: I spent a total of 40-54 minutes (exact time 40 mins) on the date of service in preparation, delivery, and documentation of the care provided to Aixa Cruz excluding any time spent in the performance of separately billed services. * Cassy Mcdowell LPN - 05/13/2023 8:06 AM EDT DM Foot Exam completed today. Provider aware. Cassy Mcdowell LPN Socks and Shoes Removed for Annual Diabetic Foot Screening RIGHT FOOT: No Reddened, Cracking, Or Open Areas Noted. RIGHT Dorsalis Pedis Pulse: Palpable RIGHT Posterior Tibial Pulse: Palpable RIGHT Monofilament:Patient reports feeling monofilament pressure on plantar surface of foot LEFT FOOT: No Reddened, Cracking or Open Areas Noted. LEFT Dorsalis Pedis Pulse: Palpable LEFT Posterior Tibial Pulse: Palpable LEFT Monofilament:Patient reports feeling monofilament pressure on plantar surface of foot Do you need diabetic shoes: No documented in this encounter Nursing Notes * Cassy Mcdowell LPN - 05/13/2023 8:07 AM EDT The patient has been properly identified by confirmation of name and date of . Chief Complaint Patient presents with Return Visit 6 month Pt had recent mammo & US, Dx with a cyst in L breast. Pt concerned with it due to the sensations she gets, mild pain. Mother had breast cancer and pt prefers it be removed and biopsied. BL legs feel very tight, pt is on Lasix. PT has been taking her med daily rather than PRN. Pt concerned with neuropathy. Sciatica pain, ongoing. Getting injection at Dr. An. Pt states she would like to taper off her lexapro. Feels like she dose not need it. documented in this encounter Plan of Treatment Upcoming Encounters Date Type Specialty Care Team Description 05/14/2023 Hospital Encounter Surgery Raimundo An, DO [address] [place] [address] 05/14/2023 Surgery Surgery Raimundo An, DO [address] [place] [address] INJECTION SPINE LUMBAR OR SACRAL 06/25/2023 Office Visit Pharmacy [facility] [address] [place] [id number] 09/09/2023 Office Visit Neurology Sommer Che PA-C [address] [facility], [place] [address] 01/20/2024 Office Visit Family Medicine Favian Castellon, [address] [place] [address] Pending Results Name Type Priority Associated Diagnoses Date /Time BASIC METABOLIC PANEL Lab Routine HTN, goal below 130/80 Type 2 diabetes mellitus with hemoglobin A1c goal of less than 8.0% (HCC) Nocturnal leg cramps 05/13/2023 8:57 AM EDT FERRITIN Lab Routine Nocturnal leg cramps 05/13/2023 8:57 AM EDT Scheduled Orders Name Type Priority Associated Diagnoses Orde r Schedule BASIC METABOLIC PANEL Lab Routine HTN, goal below 130/80 Type 2 diabetes mellitus with hemoglobin A1c goal of less than 8.0% (HCC) Nocturnal leg cramps Expected: 05/13/2023 (Approximate), Expires: 05/12/2024 FERRITIN Lab Routine Nocturnal leg cramps Expected: 05/13/2023 (Approximate), Expires: 05/12/2024 Scheduled Procedures Name Priority Associated Diagnoses Date/Ti me INJECTION SPINE LUMBAR OR SACRAL Lumbar radiculopathy 05/14/2023 9:00 AM EDT COLONOSCOPY FLEXIBLE PROXIMAL DIAGNOSTIC Recall History of colon polyps Scheduled Referrals Name Type Priority Associated Diagnoses Orde r Schedule HIGH RISK BREAST CLINIC, BREAST SURGERY REFERRAL OP Referral Within 10 days (routine) Mass of upper outer quadrant of left breast Ordered: 05/13/2023 Health Maintenance Due Date Last Done Comments [...] 05/13/2023, 0 04/23/2022, 04/24/2021, Additional history exists DXA Scan 12/18/2024 12/18/2022, [...] D LEVEL ONCE IN A LIFETIME-USE SMARTSET# [id number] Completed 02/14/2023, 09/15/2019, 01/21/2019, Additional history exists GARDASIL-HPV IMMUNIZATION SERIES Aged Out No longer eligible based on patient's age to complete this topic HIV Screening Discontinued MENINGOCOCCAL (MENACTRA/MENVEO) Aged Out No longer eligible based on patient's age to complete this topic documented as of this encounter Medical Devices Implanted Type Area Blanket Washer Device Identifier Shelf Expiration Date Model / Serial / Lot Lens 24.0 [id number] - [id number] - [id number] Implanted:Qty: 1 on 04/30/2018 by Martin Donnelly MD at OR [facility] Left: Eye [employer] 01/10/2021 [id number] / [id number] / [id number] Mx60 +23.0d Implanted:Qty: 1 on 05/12/2018 by Martin Donnelly MD at OR [facility] Right: Eye 07/12/2020 [id number] / [id number] / [id number] Duraclip 16mm Xlg Repostn - [id number] Implanted:Qty: 2 on 08/23/2022 by Sudhakar Martell MD at ENDOSCOPY [facility] [employer] 11/28/2023 [id number] / / documented as of this encounter Visit Diagnoses Diagnosis Encounter for long-term (current) use of medications- Primary Encounter for long-term (current) use of other medications DM type 2 nursing care encounter (HCC) Type II or unspecified type diabetes mellitus without mention of complication, not stated as uncontrolled Mass of upper outer quadrant of left breast HTN, goal below 130/80 Unspecified essential hypertension Acquired hypothyroidism Unspecified hypothyroidism MDD (major depressive disorder), recurrent episode, moderate (HCC) Major depressive disorder, recurrent episode, moderate B12 deficiency Other B-complex deficiencies Dyslipidemia Other and unspecified hyperlipidemia Lumbar radiculopathy Thoracic or lumbosacral neuritis or radiculitis, unspecified Type 2 diabetes mellitus with hemoglobin A1c goal of less than 8.0% (HCC) Lower leg edema Edema Nocturnal leg cramps Sleep related leg cramps Lumbar radiculopathy Thoracic or lumbosacral neuritis or [...] and were consensually agreed upon. Care Teams Warehouse Attendant Relationship Specialty Start Date End Date Favian Castellon DO [address] [place] [address] PCP - General Family Medicine 11/05/19 documented as of this encounter"
--- OUTSIDE RECORDS SUMMARY | 2023-08-22 17:27 | External Medical Summary | Summary of Care ---
Author Name Unknown Organization [facility] Address [address] [facility] [place] [address] Phone [phone] Care Team Providers Care Certified Prosthetist Vice President Name Role Phone Favian Castellon Primary Care Provider Reason for Visit * Reason Comments Outpatient Testing Encounter Details Date Type Department Care Team Description 05/13/2023 Laboratory Laboratory, [facility] [address] [facility] [place] [address] [facility] [address] [facility] [place] [address] [employer] Other*[id number]; HTN, goal below 130/80; Type 2 diabetes mellitus with hemoglobin A1c goal of less than 8.0% (HCC); Nocturnal leg cramps Allergies No known active [...] 180 Tablet 3 08/16/2022 Active Dexcom G6 Field Counsel Device Use as directed . Use to [...] 10/29/2022 Active Vitamin D (Ergocalciferol) 1.25 MG (39174 UT) Oral Capsule (Drisdol) Take 1 capsule by mouth once a week 12 Capsule 0 11/28/2022 Active Dexcom G7 Sensor Use to test blood sugar 3 Each 11 03/26/2023 Active Semglee (yfgn) 100 UNIT/ML Subcutaneous Solution [...] mRNA, LNP-s, No Pre serve, 2-Dose Series (ConsiderC) 08/15/2021,01/23/2021,12/29/2020 Hepatitis B, 20+ yrs 06/29/2015,01/19/2015,01/19 Pneumococcal Conjugate Vacci ne, 20-valent (Newdywy91) 06/27/2022 Pneumococcal Polysaccharide PPV23 (Pneumovax) 02/10/2007 Seasonal [...] Care Team Description 05/14/2023 Hospital Encounter Surgery DennyjanetteRaimundo Tae, DO [address] [place] [address] 05/14/2023 Surgery Surgery Raimundo An, DO [address] [place] [address] INJECTION SPINE LUMBAR OR SACRAL 06/25/2023 Office Visit Pharmacy [facility] [place] [address] [place] [address] 09/09/2023 Office Visit Neurology Sommer Che PA-C [address] [facility], [place] [address] 01/20/2024 Office Visit Family Medicine Favian Castellon, [address] [place] [address] Pending Results Name Type Priority Associated Diagnoses Date /Time MYCODE SUBSEQUENT ADULT Lab Routine [employer] Other*[id number] 05/13/2023 8:57 AM EDT BASIC METABOLIC PANEL Lab Routine HTN, goal below 130/80 Type 2 diabetes mellitus with hemoglobin A1c goal of less than 8.0% ([facility]) Nocturnal leg cramps 05/13/2023 8:57 AM EDT FERRITIN Lab Routine Nocturnal leg cramps 05/13/2023 8:57 AM EDT MYCODE SST1 Lab Routine [employer] Other*[id number] 05/13/2023 8:57 AM EDT MYCODE SST2 Lab Routine [employer] Other*[id number] 05/13/2023 8:57 AM EDT Scheduled Procedures Name Priority Associated Diagnoses [...] D LEVEL ONCE IN A LIFETIME-USE SMARTSET# 76704 Completed 02/14/2023, 09/15/2019, 01/21/2019, Additional history exists GARDASIL-HPV IMMUNIZATION SERIES Aged Out No longer eligible based on patient's age to complete this topic HIV Screening Discontinued MENINGOCOCCAL (MENACTRA/MENVEO) Aged Out No longer eligible based on patient's age to complete this topic documented as of this encounter Medical Devices Implanted Type Area Public Relations Counselor Device Identifier Shelf Expiration Date Model / Serial / Lot Lens 24.0 Mx60e - [id number] - [id number] Implanted:Qty: 1 on 04/30/2018 by Martin Donnelly MD at OR [facility] Left: Eye BAUSCH & LOMB 01/10/2021 [id number]-92.0 / [id number] / [id number] Mx60 +23.0d Implanted:Qty: 1 on 05/12/2018 by Martin Donnelly MD at OR [facility] Right: Eye 07/12/2020 UE3201.0 / [id number] / [id number] Duraclip 16mm Xlg Repostn - [id number] Implanted:Qty: 2 on 08/23/2022 by Sudhakar Martell MD at ENDOSCOPY [facility] CONSayah JESSICA 11/28/2023 [id number] / / documented as of this encounter Visit Diagnoses Diagnosis My[employer] Other*[id number] HTN, goal below 130/80 Unspecified essential hypertension Type 2 diabetes mellitus with hemoglobin A1c goal of less than 8.0% (HCC) Nocturnal leg cramps Sleep related leg cramps [...] were consensually agreed upon. Care Teams Certified Prosthetist Vice President Relationship Specialty Start Date End Date Favian Castellon DO [address] [place] [address] PCP - General Family Medicine 11/05/19 documented as of this encounter
--- OUTSIDE RECORDS SUMMARY | 2023-08-22 17:27 | External Medical Summary ---
Author Name Unknown Address Unknown Organization K01:LABORATORY [facility] [place] - [address] [place] [address] Laboratory Report Ordering Provider Test Date Status KELLY FAUST 05/13/2023 08:57:20 Final Observation Date Value Abnormality Reference (Units ) Status MYCODE SPECIMEN-SST 05/13/2023 08:57:20 Freezing of extracted DNA, whole blood and/or serum. Final Performing Location LABORATORY [facility] - [address] [place] [address]
--- OUTSIDE RECORDS SUMMARY | 2023-08-22 17:27 | External Medical Summary | Summary of Care ---
Author Name Unknown Organization [facility] Address [address] [place] [address] Phone [phone] Care Team Providers Care Construction Manager Name Role Phone Favian Castellon Primary Care Provider Reason for Visit * Reason Onset Date Comments Referral 05/13/2023 Encounter Details Date Type Department Care Team Description 05/13/2023 Telephone General Surgery, [place] [address] [place] [address] Services, Scheduling [address] [place] [address] Referral Allergies No known active allergiesdocumented as [...] 180 Tablet 3 08/16/2022 Active Dexcom G6 Sleeve Machine Tender Device Use as directed . Use [...] 10/29/2022 Active Vitamin D (Ergocalciferol) 1.25 MG (67507 UT) Oral Capsule (Drisdol) Take 1 capsule [...] yrs 06/29/2015,01/19/2015,01/19 Pneumococcal Conjugate Vacci ne, 20-valent (Qtnaxlj70) 06/27/2022 Pneumococcal Polysaccharide PPV23 (Pneumovax) 02/10/2007 Seasonal [...] Nurse Navigator General Surgery and Breast Clinic [facility] documented in this encounter Plan of Treatment Upcoming Encounters Date Type Specialty Care Team Description 05/14/2023 Hospital Encounter Surgery Raimundo An, [address] [place] [address] 05/14/2023 Surgery Surgery Raimundo An, [address] [place] [address] INJECTION SPINE LUMBAR OR SACRAL 06/25/2023 Office Visit Pharmacy [facility] [place] [address] [place] [address] 09/09/2023 Office Visit Neurology Sommer Che PA-C [address] [place], [place] [address] [address] 01/20/2024 Office Visit Family Medicine Favian Castellon, [address] [place] [address] Scheduled Procedures Name Priority Associated Diagnoses Date/Ti [...] D LEVEL ONCE IN A LIFETIME-USE SMARTSET# 38815 Completed 02/14/2023, 09/15/2019, 01/21/2019, Additional history exists GARDASIL-HPV IMMUNIZATION SERIES Aged Out No longer eligible based on patient's age to complete this topic HIV Screening Discontinued MENINGOCOCCAL (MENACTRA/MENVEO) Aged Out No longer eligible based on patient's age to complete this topic documented as of this encounter Medical Devices Implanted Type Area Media Professional Device Identifier Shelf Expiration Date Model / Serial / Lot Lens 24.0 Mx60e - [id number] - [id number] Implanted:Qty: 1 on 04/30/2018 by Martin Donnelly MD at OR [facility] Left: Eye BAUSCH & LOMB 01/10/2021 [id number]-75.0 / [id number] / [id number] Mx60 +23.0d Implanted:Qty: 1 on 05/12/2018 by Martin Donnelly MD at OR [facility] Right: Eye 07/12/2020 NW0639.0 / [id number] / [id number] Duraclip 16mm Xlg Repostn - [id number] Implanted:Qty: 2 on 08/23/2022 by Sudhakar Martell MD at ENDOSCOPY [facility] [employer] JESSICA 11/28/2023 [id number] / / documented as of this encounter [...] and were consensually agreed upon. Care Teams Construction Manager Relationship Specialty Start Date End Date Favian Castellon DO [address] [place] [address] PCP - General Family Medicine 11/05/19 documented as of this encounter
--- OUTSIDE RECORDS SUMMARY | 2023-08-22 17:27 | External Medical Summary ---
Author Name Unknown Address Unknown Organization K01:LAB[facility]ORY [facility] - [address] [place] [address] Laboratory Report Ordering Provider Test Date Status KELLY FAUST 05/13/2023 08:57:20 Final Observation Date Value Abnormality Reference (Units ) Status MYCODE SPECIMEN-SST 05/13/2023 08:57:20 Freezing of extracted DNA, whole blood and/or serum. Final Performing Location [facility] - [address] [place] [address]
--- OUTSIDE RECORDS SUMMARY | 2023-08-22 17:28 | External Medical Summary | Summary of Care ---
Author Name Unknown Organization [facility] Address [address] [facility] [place] [address] Phone [phone] Care Team Providers Care Bung Driver Name Role Phone Favian Castellon Primary Care Provider Reason for Visit * Reason Comments Outpatient Testing Encounter Details Date Type Department Care Team Description 03/25/2023 Laboratory Laboratory, [facility] [address] [facility] [place] [address] [facility] [address] [facility] [address] Type 2 diabetes mellitus with hemoglobin A1c goal of less than 8.0% ([facility]) Allergies No known active allergiesdocumented as of this encounter (statuses as of 03/25/2023) Medications Medication Sig Dispensed Refills Start Date [...] before bedtime. 30 mL 3 08/16/2022 Active Dexcom G6 Laundry Attendant Device Use as directed . Use to test blood sugar 1 Each 0 09/19/2022 Active Dexcom G6 Sensor Use as directed . Apply 1 sensor every 10 days 9 Each 3 09/19/2022 Active Additional Information Patient not taking.Reported on 10/29/2022 Dexcom G6 Transmitter Use as directed . [...] AT SUPPER 15 mL 11 11/14/2022 Active FreeStyle Adán 2 Sensor Use as directed. Use to test BG values every 14 days 2 Each 11 11/14/2022 Active Dulaglutide 1.5 MG/0.5ML Subcutaneous [...] 11/25/2022 Active Vitamin D (Ergocalciferol) 1.25 MG (83373 UT) Oral Capsule (Drisdol) Take 1 capsule by mouth once a week 12 Capsule 0 11/28/2022 Active documented as of this encounter (statuses as of 03/25/2023) Active Problems Problem Noted Date MDD (major [...] as of this encounter (statuses as of 03/25/2023) Resolved Problems Problem Noted Date Resolved Date [...] as of this encounter (statuses as of 03/25/2023) Immunizations Name Administration Dates Next Due COVID-19 mRNA, LNP-s, No Pre serve, 2-Dose Series (Pfizer) 08/15/2021,01/23/2021,12/29/2020 Hepatitis B, 20+ yrs 06/29/2015,01/19/2015,01/19 Pneumococcal Conjugate Vacci ne, 20-valent (Dfnljdm18) 06/27/2022 Pneumococcal Polysaccharide PPV23 (Pneumovax) 02/10/2007 Seasonal [...] Encounters Date Type Specialty Care Team Description 03/26/2023 Office Visit Pharmacy [facility] [place] [address] [place] [address] 05/14/2023 Office Visit Family Medicine Favian Castellon DO [address] [place] [address] 09/09/2023 Office Visit Neurology Sommer Che PA-C [address] [place] [address] Pending Results Name Type Priority Associated Diagnoses Date /Time HEMOGLOBIN A1C Lab Routine Type 2 diabetes mellitus with hemoglobin A1c goal of less than 8.0% ([facility]) 03/25/2023 12:44 PM EDT Scheduled Procedures Name Priority Associated Diagnoses Date/Ti me COLONOSCOPY FLEXIBLE PROXIMAL DIAGNOSTIC Recall History of colon polyps Health Maintenance Due Date Last Done Comments COVID-19 Vaccine (4 - Pfizer series) 10/10/2021 08/15/2021, 01/23/2021, 12/29/2020 DIABETES-FOOT EXAM 04/23/2023 04/23/2022, 0 04/24/2021, 12/23/2019, Additional history exists Mammogram 05/28/2023 05/28/2022, 03/14, 04/10/2021, Additional history exists DIABETES-EYE EXAM 05/31/2023 05/31/2022, , 08/11/2020, Additional history exists HbA1c 07/10/2023 01/07/2023, 04/2022, 06/26/2022, Additional history exists Depression Screening, Annual for Pts 12 and Over 10/29/2023 10/29/2022 Albumin/Creatinine Ratio 01/08/202401/07/ 023, 06/26/2022, 01/02/2022, Additional history exists GFR [...] Pneumococcal Vaccine: 65+ Years Completed 06/27/2022, 02/10/2007 Influenza Vaccine (FLU shot) Completed 10/13/2022, 08/17/2020, 07/01/2019, Additional history exists VITAMIN D LEVEL ONCE IN A LIFETIME-USE SMARTSET# 43638 Completed 02/14/2023, 09/15/2019, 01/21/2019, Additional history exists GARDASIL-HPV IMMUNIZATION SERIES Aged Out No longer eligible based on patient's age to complete this topic HIV Screening Discontinued MENINGOCOCCAL (MENACTRA/MENVEO) Aged Out No longer eligible based on patient's age to complete this topic documented as of this encounter Medical Devices Implanted Type Area Stripping Machine Operator Device Identifier Shelf Expiration Date Model / Serial / Lot Lens 24.0 Mx60e - [id number] - [id number] Implanted:Qty: 1 on 04/30/2018 by Martin Donnelly MD at OR [facility] Left: Eye BAUSCH & LOMB 01/10/2021 [id number]-86.0 / [id number] / [id number] Mx60 +23.0d Implanted:Qty: 1 on 05/12/2018 by Martin Donnelly MD at OR [facility] Right: Eye 07/12/2020 PG6880.0 / [id number] / [id number] Duraclip 16mm Xlg Repostn - [id number] Implanted:Qty: 2 on 08/23/2022 by [facility] [place] [facility] Navera 11/28/2023 [id number] / / documented as of this encounter [...] and were consensually agreed upon. Care Teams Bung Driver Relationship Specialty Start Date End Date Favian Castellon DO [address] [place] [address] PCP - General Family Medicine 11/05/19 documented as of this encounter
--- OUTSIDE RECORDS SUMMARY | 2023-08-22 17:28 | External Medical Summary ---
Author Name Unknown Address Unknown Organization K01:LAB[facility] [place] - [address] [place] [address] Laboratory Report Ordering Provider Test Date Status DONOVAN BETANCOURT 03/25/2023 12:44:42 Final Observation Date Value Abnormality Reference (Units ) Status HbA1C 03/25/2023 12:44:42 8.4 Above high normal 4. 0-5.6 (%) Final The use of HbA1c to monitor glycemic status is based on normal hemoglobin and HbA composition. This test should not be used in patients with abnormal hemoglobin that affects the half life of the red blood cell or the in vivo glycation rates. Glucose, estimated average 03/25/2023 12:44:42 194 Above high normal <126 (mg/dL) Bobby murillo Performing Location LAB[facility]ATORY [facility] - [address] [place] [address]
--- OUTSIDE RECORDS SUMMARY | 2023-08-22 17:28 | External Medical Summary | Summary of Care ---
Author Name Unknown Organization [facility] Address [address] [facility] [place] [address] Phone [phone] Care Team Providers Care Administrative Sales Assistant Name Role Phone Favian Castellon Primary Care Provider Encounter Details Date Type Department Care Team Description 03/01/2023 Patient Reported Data Patient Survey Ortho OBERD Allergies No known active allergiesdocumented as of this encounter (statuses as of 03/01/2023) Medications Medication Sig Dispensed Refills Start Date [...] 30 mL 3 08/16/2022 Active Dexcom G6 Manager Floral Device Use as directed . Use to [...] the skin once a week. 2 mL 11/14/2022 Active Alendronate Sodium 70 MG Oral Tablet (Fosamax) Take 1 Tablet by mouth once a week. with 8 oz. water 30 minutes before first meal of the day. Remain upright for 30 min after taking tablet. 15 Tablet 5 11/25/2022 Active Vitamin D (Ergocalciferol) 1.25 MG (48326 UT) Oral Capsule (Drisdol) Take 1 capsule by mouth once a week 12 Capsule 0 11/28/2022 Active documented as of this encounter (statuses as of 03/01/2023) Active Problems Problem Noted Date MDD (major [...] as of this encounter (statuses as of 03/01/2023) Resolved Problems Problem Noted Date Resolved Date [...] as of this encounter (statuses as of 03/01/2023) Immunizations Name Administration Dates Next Due COVID-19 mRNA, LNP-s, No Pre serve, 2-Dose Series (Egoscue) 08/15/2021,01/23/2021,12/29/2020 Hepatitis B, 20+ yrs 06/29/2015,01/19/2015,01/19 Pneumococcal Conjugate Vacci ne, 20-valent (Xewsnhd74) 06/27/2022 Pneumococcal Polysaccharide PPV23 (Pneumovax) 02/10/2007 Seasonal [...] Encounters Date Type Specialty Care Team Description 03/12/2023 Office Visit Pharmacy [facility] [place] [address] [place] [address] 03/17/2023 Office Visit Orthopedics Mikel Matias MD [address] [place] [address] 05/14/2023 Office Visit Family Medicine Favian Castellon DO [address] [place] [address] 09/05/2023 Office Visit Neurology Sommer Che PA-C [address] [place] [address] Scheduled Procedures Name Priority Associated Diagnoses Date/Ti me COLONOSCOPY FLEXIBLE PROXIMAL DIAGNOSTIC Recall History of colon polyps Health Maintenance Due Date Last Done Comments COVID-19 Vaccine (4 - Booster for Pfizer series) 10/10/2021 08/15/2021, 01/23/2021, 12/29/2020 DIABETES-FOOT EXAM 04/23/2023 04/23/2022, 0 04/24/2021, 12/23/2019, Additional history exists Mammogram 05/28/2023 05/28/2022, 0606/2022, 04/10/2021, Additional history exists DIABETES-EYE EXAM 05/31/2023 05/31/2022, , 08/11/2020, Additional history exists HgA1C 07/10/2023 01/07/2023, 12/0 04/2022, 06/26/2022, Additional history exists Depression Screening, Annual for Pts 12 and Over 10/29/2023 10/29/2022 Albumin/Creatinine Ratio 01/08/2024 023, 06/26/2022, 01/02/2022, Additional history exists GFR - Renal Function 01/08/2024 01/07/2023, 06/26/2022, 01/02/2022, Additional history exists TSH FOR THYROID MEDICATION MONITORING YEARLY 01/08/2024 01/07/2023, 06/26/2022, 07/03/2021, Additional history exists DXA Scan 12/18/2024 [...] D LEVEL ONCE IN A LIFETIME-USE SMARTSET# 87714 Completed 02/14/2023, 09/15/2019, 01/21/2019, Additional history exists GARDASIL-HPV IMMUNIZATION SERIES Aged Out No longer eligible based on patient's age to complete this topic HIV Screening Discontinued MENINGOCOCCAL (MENACTRA/MENVEO) Aged Out No longer eligible based on patient's age to complete this topic documented as of this encounter Medical Devices Implanted Type Area Seaming Inspector Device Identifier Shelf Expiration Date Model / Serial / Lot Lens 24.0 Mx60e - [id number] - [id number] Implanted:Qty: 1 on 04/30/2018 by Martin Donnelly MD at OR [facility] Left: Eye BAUSCH & LOMB 01/10/2021 [id number]-07.0 / [id number] / [id number] Mx60 +23.0d Implanted:Qty: 1 on 05/12/2018 by Martin Donnelly MD at OR [facility] Right: Eye 07/12/2020 VL3742.0 / [id number] / [id number] Duraclip 16mm Xlg Repostn - [id number] Implanted:Qty: 2 on 08/23/2022 by Sudhakar [place] MD at [facility] CONMED JESSICA 11/28/2023 [id number] / / documented as of this encounter [...] and were consensually agreed upon. Care Teams Administrative Sales Assistant Relationship Specialty Start Date End Date Favian Castellon DO [address] [place] [address] PCP - General Family Medicine 11/05/19 documented as of this encounter
--- OUTSIDE RECORDS SUMMARY | 2023-08-22 17:28 | External Medical Summary | Summary of Care ---
Author Name Unknown Organization [facility] Address [address] [facility] [place] [address] Phone [phone] Care Team Providers Care Compo Conveyor Operator Name Role Phone Favian Castellon Primary [...] 30 mL 3 08/16/2022 Active Dexcom G6 Adjunct Professor Of [place] History Device Use as directed . Use to [...] 11/25/2022 Active Vitamin D (Ergocalciferol) 1.25 MG (37904 UT) Oral Capsule (Drisdol) Take 1 capsule [...] mRNA, LNP-s, No Pre serve, 2-Dose Series (MST) 08/15/2021,01/23/2021,12/29/2020 Hepatitis B, 20+ yrs 06/29/2015,01/19/2015,01/19 Pneumococcal Conjugate Vacci ne, 20-valent (Uxcunxs30) 06/27/2022 Pneumococcal Polysaccharide PPV23 (Pneumovax) 02/10/2007 Seasonal [...] [facility] [place] [address] [place] [address] 03/17/2023 Office Visit Orthopedics Mikel Matias MD [address] [place] [address] 05/14/2023 Office Visit Family Medicine Favian Castellon DO [address] [place] [address] 09/05/2023 Office Visit Neurology Sommer Che PA-C [address] [place] [address] Scheduled Procedures Name Priority Associated Diagnoses Date/Ti [...] D LEVEL ONCE IN A LIFETIME-USE SMARTSET# 43825 Completed 02/14/2023, 09/15/2019, 01/21/2019, Additional history exists GARDASIL-HPV IMMUNIZATION SERIES Aged Out No longer eligible based on patient's age to complete this topic HIV Screening Discontinued MENINGOCOCCAL (MENACTRA/MENVEO) Aged Out No longer eligible based on patient's age to complete this topic documented as of this encounter Medical Devices Implanted Type Area Head Sampler Device Identifier Shelf Expiration Date Model / Serial / Lot Lens 24.0 Mx60e - [id number] - [id number] Implanted:Qty: 1 on 04/30/2018 by Martin Donnelly MD at OR [facility] Left: Eye BAUSCH & LOMB 01/10/2021 KP64Y-91.0 / [id number] / [id number] Mx60 +23.0d Implanted:Qty: 1 on 05/12/2018 by Martin Donnelly MD at OR [facility] Right: Eye 07/12/2020 XI0488.0 / [id number] / [id number] Duraclip 16mm Xlg Repostn - [id number] Implanted:Qty: 2 on 08/23/2022 by Sudhakar Mart[place] MD at [facility] CONMED JESSICA 11/28/2023 [id number] / / documented as of this encounter [...] and were consensually agreed upon. Care Teams Compo Conveyor Operator Relationship Specialty Start Date End Date Favian Castellon DO [address] [place] [address] PCP - General Family Medicine 11/05/19 documented as of this encounter
--- OUTSIDE RECORDS SUMMARY | 2023-08-22 17:28 | External Medical Summary | Summary of Care ---
Author Name Unknown Organization [facility] Address [address] [facility] [place] [address] Phone [phone] Care Team Providers Care Allied Health Professional Name Role Phone Favian Castellon Primary Care Provider Reason for Visit * Reason Comments Dosage Adjustment In Person (Anticoag Cl inic) Diabetes Follow-Up Encounter Details Date Type Department Care Team Description 03/26/2023 Office Visit Pharmacy, [facility] [address] [facility] [place] [address] [facility] [address] [facility] [place] [address] Type 2 diabetes mellitus with hemoglobin A1c goal of less than 8.0% ([facility])* Allergies No known active allergiesdocumented as of this encounter (statuses as of 03/26/2023) Medications Medication Sig Dispensed Refills Start Date [...] weekly 6 mL 3 03/28/20 22 Active Escitalopram Oxalate 20 MG Oral Tablet (Lexapro)Indicatio ns:MDD (major depressive disorder), recurrent episode, moderate (HCC) Take 1 tablet by mouth once daily 90 Tablet 3 05/29/20 22 Active Additional Information Patient not taking.Reported on 10/29/2022 Furosemide 20 MG Oral Tablet (Lasix)Indications :Localized edema TAKE 1 TABLET BY MOUTH TWICE DAILY NEEDED FOR FEET SWELLING, FLUID ACCUMULATION, OR WEIGHT GAIN 180 Tablet 3 08/16/20 22 Active Insulin Glargine 100 UNIT/ML Subcutaneous Solution Pen-injector (Lantus) Inject under the skin 35 Units before bedtime. 30 mL 3 08/16/20 22 Active Dexcom G6 Movie Stunt Performer Device Use as directed . Use to test blood sugar 1 Each 0 09/19/20 Active Dexcom G6 Transmitter Use as directed . Use 1 transmitter every 90 days to test blood sugar 1 Each 3 09/19/20 Active Additional Information Patient not taking.Reported on [...] morning. 90 Tablet 3 10/29/19 23 Active NovoLOG FlexPen 100 UNIT/ML Subcutaneous Solution Pen-injector INJECT 5 UNITS SUBCUTANEOUSLY IN THE MORNING, 10 UNITS AT LUNCH, AND 15 UNITS AT SUPPER 15 mL 11/14/19 23 Active Dulaglutide 1.5 MG/0.5ML Subcutaneous Solution Pen-injector (Trulicity) Inject 1.5 mg under the skin once a week. 2 mL 11/14/19 23 Active Alendronate Sodium 70 MG Oral Tablet (Fosamax) Take 1 Tablet by mouth once a week. with 8 oz. water 30 minutes before first meal of the day. Remain upright for 30 min after taking tablet. 15 Tablet 5 11/25/19 23 Active Vitamin D (Ergocalciferol) 1.25 MG (72222 UT) Oral Capsule (Drisdol) Take 1 capsule by mouth once a week 12 Capsule 0 11/28/19 23 Active Dexcom G7 Sensor Use to test blood sugar 3 Each 11 03/26/20 23 Active Dexcom G6 Sensor Use as directed . Apply 1 sensor every 10 days 9 Each 3 09/19/20 22 023 Discontinued FreeStyle Adán 2 Sensor Use as directed. Use to test BG values every 14 days 2 Each 11 11/14/19 23 023 Discontinued documented as of this encounter (statuses as of 03/26/2023) Active Problems Problem Noted Date MDD (major [...] as of this encounter (statuses as of 03/26/2023) Resolved Problems Problem Noted Date Resolved Date [...] as of this encounter (statuses as of 03/26/2023) Immunizations Name Administration Dates Next Due COVID-19 mRNA, LNP-s, No Pre serve, 2-Dose Series (Pfizer) 08/15/2021,01/23/2021,12/29/2020 Hepatitis B, 20+ yrs 06/29/2015,01/19/2015,01/19 Pneumococcal Conjugate Vacci ne, 20-valent ([id number]) 06/27/2022 Pneumococcal Polysaccharide PPV23 (Pneumovax) 02/10/2007 Seasonal [...] as of this encounter Progress Notes * Piper Reyez, [facility] - 03/26/2023 8:38 AM EDT Images from the original note were not included. Medication Therapy Disease Management [facility] - Diabetes Management Progress Note Aixa Cruz, identified by name and date of , is a 67 year old female being seen for diabetes management/education. Patient presents for return diabetic visit. DIABETES: Current diabetic medications: Novolog 5 units with breakfast 5 units with lunch and 15 units with supper plus sliding scale Semglee 35 units at bedtime Trulicity4.5mg weekly Medication Injection Site: Abdomen Lifestyle: Diet: unchanged Glucose Review/SMBG: Readings obtained from patient device Hypoglycemia: Does your blood sugar go below 70 mg/dL? No Hyperglycemia symptoms present: none Recent Labs Units 03/25/23 1244 01/07/23 0751 09/18/22 1158 HEMOGLOBIN A1C - [facility] % 8.4* 8.4* 7.4* Recent Labs Units 01/07/23 0751 06/26/22 0925 01/02/22 1106 ESTIMATED GLOMERULAR FILTRATION RATE - [facility] mL/min >90 >90 >90 CREATININE - [facility] mg/dL 0.6 0.6 0.6 HYPERTENSION: Patient on ACEi/ARB: yes BP Readings from Last 3 Encounters: 11/13/22 139/79 10/29/22 110/60 09/03/22 104/66 Blood pressure at goal: yes HYPERLIPIDEMIA: Patient is taking moderate or high intensity statin: yes HEALTH MAINTENANCE REVIEW: Health Maintenance Due Topic Date Due COVID-19 Vaccine (4 - Pfizer series) 10/10/2021 DIABETES-FOOT EXAM 04/23/2023 ASSESSMENT & PLAN: No diagnosis found. BG Readings - Blood sugars uncontrolled. A1c remains 8.4%. Medications - Reviewed current regimen, patient is adherent to regimen. Recommending based on CGM download to increase meal time insulin with lunch and dinner. Patient notes she will also be restarting golo supplement. Diet, Exercise, Lifestyle - No significant lifestyle changes since last visit. Discussed with patient. Patient is agreeable to CGM- will change to G7 Patient aware to contact clinic if any hypoglycemia before next visit. MEDICATION CHANGES: yes, see below; [facility] pharmacy[facility] Medications: INCREASE: Novolog 5 units with breakfast 10 units with lunch and 20 units with supper Semglee 35 units at bedtime Trulicity4.5mg weekly HEALTH MAINTENANCE INTERVENTIONS: Labs: Up to Date Immunizations: Up to Date Foot Exam: Up to Date Eye Exam: Up to Date Annual Wellness Visit: N/A FOLLOW UP: Return to clinic in 12 weeks 06/25/2023 Piper Reyez RPh Clinical Pharmacist - Cnc Router Operator Medication Therapy Management Clinic 03/26/2023, 8:39 AM documented in this encounter Plan of Treatment Upcoming Encounters Date Type Specialty Care Team Description 05/14/2023 Office Visit Family Medicine Favian Castellon DO [address] [place] [address] 06/25/2023 Office Visit [facility]acy [facility] [place] [address] [place] [address] 09/09/2023 Office Visit Neurology Sommer Che PA-C [address] [place] [address] Scheduled Procedures Name Priority Associated Diagnoses Date/Ti me COLONOSCOPY FLEXIBLE PROXIMAL DIAGNOSTIC Recall History of colon polyps Health Maintenance Due Date Last Done Comments COVID-19 Vaccine (4 - Pfizer series) 10/10/2021 08/15/2021, 01/23/2021, 12/29/2020 DIABETES-FOOT EXAM 04/23/2023 04/23/2022, 0 04/24/2021, 12/23/2019, Additional history exists Mammogram 05/28/2023 05/28/2022, 03/14, 04/10/2021, Additional history exists DIABETES-EYE EXAM 05/31/2023 05/31/2022, , 08/11/2020, Additional history exists HbA1c 09/24/2023 03/25/2023, 12/12, [...] D LEVEL ONCE IN A LIFETIME-USE SMARTSET# 17556 Completed 02/14/2023, 09/15/2019, 01/21/2019, Additional history exists GARDASIL-HPV IMMUNIZATION SERIES Aged Out No longer eligible based on patient's age to complete this topic HIV Screening Discontinued MENINGOCOCCAL (MENACTRA/MENVEO) Aged Out No longer eligible based on patient's age to complete this topic documented as of this encounter Medical Devices Implanted Type Area Medical Laboratory Manager Device Identifier Shelf Expiration Date Model / Serial / Lot Lens 24.0 Mx60e - [id number] - [id number] Implanted:Qty: 1 on 04/30/2018 by Martin Donnelly MD at OR [facility] Left: Eye BAUSCH & LOMB 01/10/2021 [id number]-82.0 / [id number] / [id number] Mx60 +23.0d Implanted:Qty: 1 on 05/12/2018 by Martin Donnelly MD at OR [facility] Right: Eye 07/12/2020 [id number] / [id number] / [id number] Duraclip 16mm Xlg Repostn - [id number] Implanted:Qty: 2 on 08/23/2022 by Sudhakar Martell MD at [facility] [employer] JESSICA 11/28/2023 [id number] / / documented as of this encounter Visit Diagnoses Diagnosis Type 2 diabetes mellitus with hemoglobin A1c goal of less than 8.0% ([facility])- Primary documented in this encounter Advance Directives [...] and were consensually agreed upon. Care Teams Allied Health Professional Relationship Specialty Start Date End Date Favian Castellon DO [address] [place] [address] PCP - General Family Medicine 11/05/19 documented as of this encounter
--- OUTSIDE RECORDS SUMMARY | 2023-08-22 17:28 | External Medical Summary | Summary of Care ---
Author Name Unknown Organization [facility] Address [address] [facility] [place] [address] Phone [phone] Care Team Providers Care Dyed Raw Stock Blower Feeder Name Role Phone Favian Castellon Primary Care [...] 30 mL 3 08/16/2022 Active Dexcom G6 Formula Bottler Device Use as directed . Use to [...] 11/25/2022 Active Vitamin D (Ergocalciferol) 1.25 MG (90605 UT) Oral Capsule (Drisdol) Take 1 capsule [...] mRNA, LNP-s, No Pre serve, 2-Dose Series (Bitnami) 08/15/2021,01/23/2021,12/29/2020 Hepatitis B, 20+ yrs 06/29/2015,01/19/2015,01/19 Pneumococcal Conjugate Vacci ne, 20-valent ([id number]) 06/27/2022 Pneumococcal Polysaccharide PPV23 (Pneumovax) 02/10/2007 Seasonal [...] [facility] [place] [address] [place] [address] 03/17/2023 Office Visit Orthopedics Mikel Matisa MD [address] [place] [address] 05/14/2023 Office Visit Family Medicine Favian Castellon DO [address] [place] [address] 09/05/2023 Office Visit Neurology Sommer Che PA-C [address] [place] [address] Scheduled Procedures Name Priority Associated Diagnoses Date/Ti [...] D LEVEL ONCE IN A LIFETIME-USE SMARTSET# [id number] Completed 02/14/2023, 09/15/2019, 01/21/2019, Additional history exists GARDASIL-HPV IMMUNIZATION SERIES Aged Out No longer eligible based on patient's age to complete this topic HIV Screening Discontinued MENINGOCOCCAL (MENACTRA/MENVEO) Aged Out No longer eligible based on patient's age to complete this topic documented as of this encounter Medical Devices Implanted Type Area Golf Tournament Consultant Device Identifier Shelf Expiration Date Model / Serial / Lot Lens 24.0 Mx60e - [id number] - [id number] Implanted:Qty: 1 on 04/30/2018 by Martin Donnelly MD at OR [facility] Left: Eye BAUSCH & LOMB 01/10/2021 [id number]-10.0 / [id number] / [id number] Mx60 +23.0d Implanted:Qty: 1 on 05/12/2018 by Martin Donnelly MD at OR [facility] Right: Eye 07/12/2020 [id number] / [id number] / [id number] Duraclip 16mm Xlg Repostn - [id number] Implanted:Qty: 2 on 08/23/2022 by Sudhakar Martell MD at [facility] [employer] JESSICA 11/28/2023 [id number] / / documented as of this encounter [...] and were consensually agreed upon. Care Teams Dyed Raw Stock Blower Feeder Relationship Specialty Start Date End Date Favian Castellon DO [address] [place] [address] PCP - General Family Medicine 11/05/19 documented as of this encounter
--- OUTSIDE RECORDS SUMMARY | 2023-08-22 17:28 | External Medical Summary | Summary of Care ---
Author Name Unknown Organization [facility] Address [address] [facility] [place] [address] Phone [phone] Care Team Providers Care Slimer Name Role Phone Favian Castellon Primary Care [...] 30 mL 3 08/16/2022 Active Dexcom G6 Group Chief Operator Device Use as directed . Use [...] 11/25/2022 Active Vitamin D (Ergocalciferol) 1.25 MG (99594 UT) Oral Capsule (Drisdol) Take 1 capsule [...] mRNA, LNP-s, No Pre serve, 2-Dose Series ([employer]) 08/15/2021,01/23/2021,12/29/2020 Hepatitis B, 20+ yrs 06/29/2015,01/19/2015,01/19 Pneumococcal Conjugate Vacci ne, 20-valent (Fvivydw89) 06/27/2022 Pneumococcal Polysaccharide PPV23 (Pneumovax) 02/10/2007 Seasonal [...] [facility] [place] [address] [place] [address] 03/17/2023 Office Visit Orthopedics Mikel Matias MD [address] [place] [address] 05/14/2023 Office Visit Family Medicine Favian Castellon DO [address] [place] [address] 09/05/2023 Office Visit Neurology Sommer Che PA-C [address] [place] [address] Scheduled Procedures Name Priority Associated Diagnoses Date/Ti [...] D LEVEL ONCE IN A LIFETIME-USE SMARTSET# 09663 Completed 02/14/2023, 09/15/2019, 01/21/2019, Additional history exists GARDASIL-HPV IMMUNIZATION SERIES Aged Out No longer eligible based on patient's age to complete this topic HIV Screening Discontinued MENINGOCOCCAL (MENACTRA/MENVEO) Aged Out No longer eligible based on patient's age to complete this topic documented as of this encounter Medical Devices Implanted Type Area Community Association Manager Device Identifier Shelf Expiration Date Model / Serial / Lot Lens 24.0 Mx60e - [id number] - [id number] Implanted:Qty: 1 on 04/30/2018 by Martin Donnelly MD at OR [facility] Left: Eye BAUSCH & LOMB 01/10/2021 [id number]-75.0 / [id number] / [id number] Mx60 +23.0d Implanted:Qty: 1 on 05/12/2018 by Martin Donnelly MD at OR [facility] Right: Eye 07/12/2020 WR7921.0 / [id number] / [id number] Duraclip 16mm Xlg Repostn - [id number] Implanted:Qty: 2 on 08/23/2022 by Sudhakar Martell MD at [facility] [employer] JESSICA 11/28/2023 [id number] / / documented as of this encounter [...] and were consensually agreed upon. Care Teams Slimer Relationship Specialty Start Date End Date Favian Castellon DO [address] [place] [address] PCP - General Family Medicine 11/05/19 documented as of this encounter
--- OUTSIDE RECORDS SUMMARY | 2023-08-22 17:28 | External Medical Summary | Summary of Care ---
Author Name Unknown Organization [facility] Address [address] [facility] [place] [address] Phone [phone] Care Team Providers Care Process Engineering Intern Name Role Phone Favian Castellon Primary Care [...] 30 mL 3 08/16/2022 Active Dexcom G6 Financing Analyst Device Use as directed . Use to [...] 11/25/2022 Active Vitamin D (Ergocalciferol) 1.25 MG (40339 UT) Oral Capsule (Drisdol) Take 1 capsule [...] mRNA, LNP-s, No Pre serve, 2-Dose Series (Burt) 08/15/2021,01/23/2021,12/29/2020 Hepatitis B, 20+ yrs 06/29/2015,01/19/2015,01/19 Pneumococcal Conjugate Vacci ne, 20-valent (Kuclujh97) 06/27/2022 Pneumococcal Polysaccharide PPV23 (Pneumovax) 02/10/2007 Seasonal [...] [facility] [place] [address] [place] [address] 03/17/2023 Office Visit Orthopedics Mikel Matias MD [address] [place] [address] 05/14/2023 Office Visit Family Medicine Favian Castellon DO [address] [place] [address] 09/05/2023 Office Visit Neurology Sommer Che PA-C [address] [place] [address] Scheduled Procedures Name Priority Associated Diagnoses Date/Ti [...] D LEVEL ONCE IN A LIFETIME-USE SMARTSET# 19077 Completed 02/14/2023, 09/15/2019, 01/21/2019, Additional history exists GARDASIL-HPV IMMUNIZATION SERIES Aged Out No longer eligible based on patient's age to complete this topic HIV Screening Discontinued MENINGOCOCCAL (MENACTRA/MENVEO) Aged Out No longer eligible based on patient's age to complete this topic documented as of this encounter Medical Devices Implanted Type Area Cab Supervisor Device Identifier Shelf Expiration Date Model / Serial / Lot Lens 24.0 Mx60e - [id number] - [id number] Implanted:Qty: 1 on 04/30/2018 by Martin Donnelly MD at OR [facility] Left: Eye BAUSCH & LOMB 01/10/2021 [id number]-85.0 / [id number] / [id number] Mx60 +23.0d Implanted:Qty: 1 on 05/12/2018 by Martin Donnelly MD at OR [facility] Right: Eye 07/12/2020 TH0627.0 / [id number] / [id number] Duraclip 16mm Xlg Repostn - [id number] Implanted:Qty: 2 on 08/23/2022 by Sudhakar Martell MD at [facility] CONMED JESSICA 11/28/2023 [id number] / / documented as of this encounter [...] and were consensually agreed upon. Care Teams Process Engineering Intern Relationship Specialty Start Date End Date Favian Castellon DO [address] [place] [address] PCP - General Family Medicine 11/05/19 documented as of this encounter
--- OUTSIDE RECORDS SUMMARY | 2023-08-22 17:28 | External Medical Summary | Summary of Care ---
Author Name Unknown Organization [facility] Address [address] [facility] [place] [address] Phone [phone] Care Team Providers Care Custodian Manager Name Role Phone Favian Castellon DO Primary Care Provider Reason for Visit * Reason Comments eRx-Medication Refill Encounter Details Date Type Department Care Team Description 02/12/2023 Refill Family Practice [facility] [address] [place] [phone] Favian Castellon DO [address] [place] [address] Encounter for long-term (current) use of medications* Allergies No known active allergiesdocumented as of this encounter (statuses as of 03/02/2023) Medications Medication Sig Dispensed Refills Start Date [...] 30 mL 3 08/16/2022 Active Dexcom G6 Dough Scaler And Mixer Device Use as directed . Use to [...] Active Dulaglutide 1.5 MG/0.5ML Subcutaneous Solution Pen-injector ([email or web address]) Inject 1.5 mg under the skin once a week. 2 mL 11 11/14/2022 Active Alendronate Sodium 70 MG Oral Tablet (Fosamax) Take 1 Tablet by mouth once a week. with 8 oz. water 30 minutes before first meal of the day. Remain upright for 30 min after taking tablet. 15 Tablet 5 11/25/2022 Active Vitamin D (Ergocalciferol) 1.25 MG (67237 UT) Oral Capsule (Drisdol) Take 1 capsule by mouth once a week 12 Capsule 0 11/28/2022 Active documented as of this encounter (statuses as of 03/02/2023) Active Problems Problem Noted Date MDD (major [...] as of this encounter (statuses as of 03/02/2023) Resolved Problems Problem Noted Date Resolved Date [...] as of this encounter (statuses as of 03/02/2023) Immunizations Name Administration Dates Next Due COVID-19 mRNA, LNP-s, No Pre serve, 2-Dose Series (Pfizer) 08/15/2021,01/23/2021,12/29/2020 Hepatitis B, 20+ yrs 06/29/2015,01/19/2015,01/19 Pneumococcal Conjugate Vacci ne, 20-valent ([id number]) 06/27/2022 Pneumococcal Polysaccharide PPV23 (Pneumovax) 02/10/2007 Seasonal [...] Telephone Encounter - Cassy Mcdowell LPN - 02/13/2023 8:39 AM EDT Sent my g * Telephone Encounter - Mk Aleman MD - 02/12/2023 5:32 PM EDT Refused Prescriptions: Disp Refills Vitamin D (Ergocalciferol) 1.25 MG (37537 *12 Cap*0 Sig: Take 1 capsule by mouth once a week Refused By: MK ALEMAN Reason for Refusal: Refill Not Appropriate * Telephone Encounter - Mk [place] MD - 02/12/2023 5:31 PM EDT Last vitamin D level from 2019. Needs updated bloodwork prior to refilling prescription vitamin D supplement. Lab work ordered. * Telephone Encounter - Ayana Orosco [facility] - 02/12/2023 5:12 PM EDTPending Prescriptions: Disp Refills Vitamin D (Ergocalciferol) 1.25 MG (26770 *12 Cap*0 Sig: Take 1 capsule by mouth once a week * Telephone Encounter - Ayana Orosco [facility] - 02/12/2023 5:11 PM EDT Telepharmacy is currently not authorized to approve refills for the pended medication(s) per refillprotocol. Please approve if appropriate. Patient needs update Vit D level. Lab ordered. Pending Prescriptions: Disp Refills Vitamin D (Ergocalciferol) 1.25 MG (41595*12 Cap*0 Sig: Take 1 capsule by mouth once a week Thank you, Ayana Orosco [facility] Clinical Pharmacist TelePharmacy 02/12/23 5:11 PM [phone] * Telephone Encounter - Ayana Orosco [facility] - 02/12/2023 5:08 PM EDT Did you pend patient's preferred pharmacy and medication before forwarding?yes Pharmacy: [facility] [address] [place] Pending Prescriptions: Disp Refills Vitamin D (Ergocalciferol) 1.25 MG (53113*12 Cap*0 Sig: Take 1 capsule by mouth once a week Last Visit: 10/29/2022 (in office), 11/03/2020 (telemedicine) Next Visit: 05/14/2023 If no future appointments scheduled, and last appointment is greater than a year ago, please schedule patient for a follow-up appointment Last date the medication was ordered: 11/28/2022 Is this request for a controlled substance?No Urine Drug Screen:No results found for this or any previous visit. Patient Phone Numbers Labs: Lab Results Component Value Date/Time CREAT 0.6 01/07/2023 07:51 AM CREAT 0.6 09/19/2020 09:00 AM POTASSIUM 4.4 01/07/2023 07:51 AM POTASSIUM 4.9 09/19/2020 09:00 AM TSH 0.26 (L) 01/07/2023 07:51 AM TSH 5.52 (H) 09/19/2020 09:00 AM LDLCALC 74 01/07/2023 07:51 AM LDLCALC 169 (H) 09/19/2020 09:00 AM LDLDIRECT 97 01/02/2022 11:06 AM LDLDIRECT NOT APPLICABLE 09/19/2020 09:00 AM LDLDIRECT 203 (H) 01/21/2019 08:28 AM ALT 30 01/07/2023 07:51 AM ALT 24 03/18/2017 08:02 AM HGBA1C 8.4 (H) 01/07/2023 07:51 AM HGBA1C 8.3 (H) 09/19/2020 09:00 AM documented in this encounter Plan of Treatment Upcoming Encounters Date Type Specialty Care Team Description 03/12/2023 Office Visit Pharmacy [facility] [place] [address] [place] [address] 03/17/2023 Office Visit Orthopedics Mikel Matias MD [address] [place] [address] 05/14/2023 Office Visit Family Medicine Favian Castellon DO [address] [place] [address] 09/05/2023 Office Visit Neurology Sommer Che PA-C [address] [place], [place] [address] [address] Scheduled Procedures Name Priority Associated Diagnoses Date/Ti [...] 08/11/2020, Additional history exists HgA1C 07/10/2023 01/07/2023, 04/2022, 06/26/2022, Additional history exists [...] D LEVEL ONCE IN A LIFETIME-USE SMARTSET# 00555 Completed 02/14/2023, 09/15/2019, 01/21/2019, Additional history exists GARDASIL-HPV IMMUNIZATION SERIES Aged Out No longer eligible based on patient's age to complete this topic HIV Screening Discontinued MENINGOCOCCAL (MENACTRA/MENVEO) Aged Out No longer eligible based on patient's age to complete this topic documented as of this encounter Medical Devices Implanted Type Area Gun Perforator Loader Device Identifier Shelf Expiration Date Model / Serial / Lot Lens 24.0 Mx60e - [id number] - [id number] Implanted:Qty: 1 on 04/30/2018 by Martin Donnelly MD at OR [facility] Left: Eye BAUSCH & LOMB 01/10/2021 [id number]-95.0 / [id number] / [id number] Mx60 +23.0d Implanted:Qty: 1 on 05/12/2018 by Martin Donnelly MD at OR [facility] Right: Eye 07/12/2020 VQ5699.0 / [id number] / [id number] Duraclip 16mm Xlg Repostn - [id number] Implanted:Qty: 2 on 08/23/2022 by Sudhakar Martell MD at ENDOSCOPY [facility] CONMED JESSICA 11/28/2023 [id number] / / documented as of this encounter Results * 25-HYDROXY VITAMIN D (02/14/2023 11:56 AM EDT) 25-Hydroxy Vitamin D 71 >19 ng/mL 02/14/2023 8:37 PM EDT [facility] [place] Venous blood specimen / Unknown Venipuncture / Unknown 02/14/2023 11:56 AM EDT 02/14/2023 11:56 AM EDT Narrative [facility] [place] 02/14/2023 8:37 PM EDT Deficient: <20 ng/mL Insufficient: 20-29 ng/mL Recommended/Optimum:30-50 ng/mL Vitamin D intoxication is rare. If suspicious of Vitamin D toxicity, evaluation of serum Calcium and PTH is recommended. Ayana Baigvanessa [facility] LAB BLOOD ORDERAB LES [facility] [address] [facility] [place] [address] documented in this encounter Visit Diagnoses Diagnosis Encounter for long-term (current) use of medications- Primary Encounter for long-term (current) use of other medications documented in this encounter Advance Directives Latest [...] and were consensually agreed upon. Care Teams Custodian Manager Relationship Specialty Start Date End Date Favian Castellon DO [address] [place] [address] PCP - General Family Medicine 11/05/19 documented as of this encounter
--- OUTSIDE RECORDS SUMMARY | 2023-08-22 17:28 | External Medical Summary | Summary of Care ---
Author Name Unknown Organization [facility] Address [address] [facility] [place] [address] Phone [phone] Care Team Providers Care Scientist Engineer Name Role Phone Favian Castellon Primary [...] 30 mL 3 08/16/2022 Active Dexcom G6 Automatic Toe Laster Device Use as directed . Use to [...] SUPPER 15 mL 11 11/14/2022 Active FreeStyle Aádn 2 Sensor Use as directed. Use to [...] 11/25/2022 Active Vitamin D (Ergocalciferol) 1.25 MG (30529 UT) Oral Capsule (Drisdol) Take 1 capsule [...] mRNA, LNP-s, No Pre serve, 2-Dose Series (BootstrapLabs) 08/15/2021,01/23/2021,12/29/2020 Hepatitis B, 20+ yrs 06/29/2015,01/19/2015,01/19 Pneumococcal Conjugate Vacci ne, 20-valent ([id number]) 06/27/2022 Pneumococcal Polysaccharide PPV23 (Pneumovax) 02/10/2007 Seasonal [...] [facility] [address] [place] [address] 03/17/2023 Office Visit Orthopedics Mikel Matias MD [address] [place] [address] 05/14/2023 Office Visit Family Medicine Favian Castellon DO [address] [place] [address] 09/05/2023 Office Visit Neurology Sommer Che PA-C [address] [place] [address] Scheduled Procedures Name Priority Associated Diagnoses Date/Ti [...] D LEVEL ONCE IN A LIFETIME-USE SMARTSET# 15090 Completed 02/14/2023, 09/15/2019, 01/21/2019, Additional history exists GARDASIL-HPV IMMUNIZATION SERIES Aged Out No longer eligible based on patient's age to complete this topic HIV Screening Discontinued MENINGOCOCCAL (MENACTRA/MENVEO) Aged Out No longer eligible based on patient's age to complete this topic documented as of this encounter Medical Devices Implanted Type Area Explosive Operator Bomb Device Identifier Shelf Expiration Date Model / Serial / Lot Lens 24.0 Mx60e - [id number] - [id number] Implanted:Qty: 1 on 04/30/2018 by Martin Donnelly MD at OR [facility] Left: Eye BAUSCH [employer] LOMB 01/10/2021 [id number]-84.0 / [id number] / [id number] Mx60 +23.0d Implanted:Qty: 1 on 05/12/2018 by Martin Donnelly MD at OR [facility] Right: Eye 07/12/2020 [id number] / [id number] / [id number] Duraclip 16mm Xlg Repostn - [id number] Implanted:Qty: 2 on 08/23/2022 by Sudhakar Martell MD at [facility] [employer] JESSICA 11/28/2023 [id number] / / documented as of this encounter [...] and were consensually agreed upon. Care Teams Scientist Engineer Relationship Specialty Start Date End Date Favian Castellon DO [address] [place] [address] PCP - General Family Medicine 11/05/19 documented as of this encounter
--- OUTSIDE RECORDS SUMMARY | 2023-08-22 17:28 | External Medical Summary | Summary of Care ---
Author Name Unknown Organization [facility] Address [address] [facility] [place] [address] Phone [phone] Care Team Providers Care Waterproofing Supervisor Name Role Phone Favian Castellon Primary Care Provider Reason for Visit * Reason Comments NEW PATIENT Encounter Details Date Type Department Care Team Description 03/17/2023 Office Visit Orthopaedics [facility] [address] [place] [address] Mikel Matias MD [address] [place] [address] Chronic left shoulder pain* Allergies No known active allergiesdocumented as of this encounter (statuses as of 03/17/2023) Medications Medication Sig Dispensed Refills Start Date [...] 30 mL 3 08/16/2022 Active Dexcom G6 Plant Protection Supervisor Device Use as directed . Use to [...] 11/25/2022 Active Vitamin D (Ergocalciferol) 1.25 MG (52178 UT) Oral Capsule (Drisdol) Take 1 capsule by mouth once a week 12 Capsule 0 11/28/2022 Active documented as of this encounter (statuses as of 03/17/2023) Active Problems Problem Noted Date MDD (major [...] as of this encounter (statuses as of 03/17/2023) Resolved Problems Problem Noted Date Resolved Date [...] as of this encounter (statuses as of 03/17/2023) Immunizations Name Administration Dates Next Due COVID-19 mRNA, LNP-s, No Pre serve, 2-Dose Series (Woto) 08/15/2021,01/23/2021,12/29/2020 Hepatitis B, 20+ yrs 06/29/2015,01/19/2015,01/19 Pneumococcal Conjugate Vacci ne, 20-valent ([id number]) 06/27/2022 Pneumococcal Polysaccharide PPV23 (Pneumovax) 02/10/2007 Seasonal [...] on file documented as of this encounter Patient Instructions * Patient Instructions* Mikel Matias MD - 03/17/2023 9:00 AM EDT Tylenol (Acetaminophen) Regular Strength 325 mg (1-2 tablets up to 4 times per day)and/or Ibuprofen 200mg (1-3 tab up to 4 times per day) with food (No other over the counter NSAID medications) Okay to take these medications at the same time or alternate. Use the lowest amount of medication as infrequently as possible to control your pain at a tolerablelevel Do not take Tylenol if drinking more than 3 alcohol drinks daily You can also try topical Voltaren gel (Diclofenac Sodium Topical Gel) which is over the counter up to 4 times per day Try heating pad documented in this encounter Progress Notes * Mikel Matias MD - 03/17/2023 8:52 AM EDT Aixa Cruz [id number] Aixa Cruz is a 67 year old female who presents for consultation to [facility] for left shoulder injury/pain. Consult requested by Self. Aixa Cruz is here unaccompanied History: Level of pain: reviewed and agree with Nursing Notes for HPI elements History - New patient right hand dominant left shoulder pain 12/20 x DOI injury 10/29/2022 fell Patient notes has been going to PT for shoulder is doing it at home now, has not seen improvement in pain. Last A1C 8.4 01/07/2023 Patient denies any injections or bracing or surgery ROS: ROS per HPI otherwise non-contributory Past Medical History: Diagnosis Date Depression with anxiety 10/31/2020 Dyslipidemia, goal to be determined Essential and other specified forms of tremor essential tremor High risk for fracture due to osteoporosis by DEXA scan 10/02/2018 HTN, goal below 140/90 Non compliance w medication regimen 09/16/2019 Family History Problem Relation Age of Onset Neurological Disorder Father seizures, hearing loss Hearing loss Father Heart Disorder Mother CABG age 72, lifelong tachycardias Hypertension Mother Diabetes Mother Arthritis Mother Breast Cancer Mother 72 Hearing loss Mother Heart Disorder Grandfather (Paternal) VA Hearing loss Grandfather (Paternal) Stroke Grandmother (Maternal) Hearing loss Sister Hearing loss Brother Hearing loss Grandfather (Maternal) Asthma Son Social History Socioeconomic History Marital status: Spouse [...] on file Housing Stability: Not on file Physical Exam Constitutional: Generally well-nourished and in no acute distress Psychiatric: Mood and Affect normal Eyes: EOMI Respiratory: Normal respiratory effort with regular rate and rhythm Shoulder Exam Inspection: Palpation: Tender palpate subacromial space left shoulder ROM: Forward Flexion (normal 180): L - 180, R - 180 Abduction (normal 180): L - 180, R - 180 External Rotation at 90 Abduction: L - 90, R - 90 Internal rotation at 90 Abduction: L - 90, R - 90 External rotation at 0: L - 70, R - 70 Internal Rotation: T12 bilateral Abduction created the greatest pain Strength: Forward flexion: L - 5/5, R - 5/5 Abduction: L - 5/5, R - 5/5 External Rotation: L - 5/5, R - 5/5 Internal Rotation: L - 5/5, R - 5/5 Special Tests: Motor to Distal AIN, PIN, Medial, Radial, Ulnar: Intact Bilateral Drop Arm: Negative Bilateral Impingment Tests: Neer: Positive left Biceps and labral tests: Speed (Biceps): Negative Bilateral Radiology (I have personally reviewed the following films): 10/30/2022: 3 View x-ray left shoulder FINDINGS There is no fracture or dislocation. Acromiohumeral distance is normal. There is mild degenerative change at the acromioclavicular joint. The bones are osteopenic. IMPRESSION IMPRESSION No acute fracture or dislocation of the left shoulder. Assessment and Plan: 1) left shoulder injury resulting in chronic pain Has been mostly doing home exercises which she was taught in physical therapy where she attends forher lumbar spine Has had improvement but not resolution of symptoms with those exercises I do not suspect a significant rotator cuff tear given she has full motion Suspect rotator cuff strain with underlying tendinosis Discussed options of continued home exercise program along with adding xisw-gtp-bynryeo medications, steroid injection, MRI For now she plans to continue home exercise program and likely use Voltaren gel. Medication recommendations I made were the following Tylenol (Acetaminophen) Regular Strength 325 mg (1-2 tablets up to 4 times per day)and/or Ibuprofen 200mg (1-3 tab up to 4 times per day) with food (No other over the counter NSAID medications) Okay to take these medications at the same time or alternate. Use the lowest amount of medication as infrequently as possible to control your pain at a tolerablelevel Do not take Tylenol if drinking more than 3 alcohol drinks daily You can also try topical Voltaren gel (Diclofenac Sodium Topical Gel) which is over the counter up to 4 times per day She will follow-up p.r.n. Mikel Matias MD Primary Care Sports Medicine Orthopaedics [address] [address] documented in this encounter Nursing Notes * Génesis Manning LPN - 03/17/2023 8:45 AM EDT New patient right hand dominant left shoulder pain 3/10 x DOI injury 10/29/2022 fell Patient notes has been going to PT for shoulder is doing it at home now, has not seen improvement in pain. Last A1C 8.4 01/07/2023 Patient denies any injections or bracing or surgery h/o INJECTION SPINE LUMBAR OR SACRAL 11/13/2022 documented in this encounter Plan of Treatment Upcoming Encounters Date Type Specialty Care Team Description 03/26/2023 Office Visit [facility]acy [facility] [address] [place] [address] 05/14/2023 Office Visit Family Medicine Favian Castellon DO [address] [place] [address] 09/05/2023 Office Visit Neurology Sommer Che PA-C [address] [facility] [place] [address] Scheduled Procedures Name Priority Associated Diagnoses Date/Ti me COLONOSCOPY FLEXIBLE PROXIMAL DIAGNOSTIC Recall History of colon polyps Health Maintenance Due Date Last Done Comments COVID-19 Vaccine (4 - Booster for Pfizer series) 10/10/2021 08/15/2021, 01/23/2021, 12/29/2020 DIABETES-FOOT EXAM 04/23/2023 04/23/2022, 0 04/24/2021, 12/23/2019, Additional history exists Mammogram 05/28/2023 05/28/2022, 06/06/2022, 04/10/2021, Additional history exists DIABETES-EYE EXAM 05/31/2023 05/31/2022, , 08/11/2020, Additional history exists HbA1c 07/10/2023 01/07/2023, 12/0 04/2022, 06/26/2022, Additional history [...] D LEVEL ONCE IN A LIFETIME-USE SMARTSET# 38203 Completed 02/14/2023, 09/15/2019, 01/21/2019, Additional history exists GARDASIL-HPV IMMUNIZATION SERIES Aged Out No longer eligible based on patient's age to complete this topic HIV Screening Discontinued MENINGOCOCCAL (MENACTRA/MENVEO) Aged Out No longer eligible based on patient's age to complete this topic documented as of this encounter Medical Devices Implanted Type Area Supervisor Customer Complaint Service Device Identifier Shelf Expiration Date Model / Serial / Lot Lens 24.0 Mx60e - [id number] - [id number] Implanted:Qty: 1 on 04/30/2018 by Martin Donnelly MD at OR [facility] Left: Eye BAUSCH [employer] LOMB 01/10/2021 [id number]-68.0 / [id number] / [id number] Mx60 +23.0d Implanted:Qty: 1 on 05/12/2018 by Martin Donnelly MD at OR [facility] Right: Eye 07/12/2020 LS3116.0 / [id number] / [id number] Duraclip 16mm Xlg Repostn - [id number] Implanted:Qty: 2 on 08/23/2022 by Sudhakar Martell MD at [facility] CONMED JESSICA 11/28/2023 [id number] / / documented as of this encounter Visit Diagnoses Diagnosis Chronic left shoulder pain- Primary Pain in joint, shoulder region documented in this encounter Advance Directives Latest [...] and were consensually agreed upon. Care Teams Waterproofing Supervisor Relationship Specialty Start Date End Date Favian Castellon DO [address] [place] [address] PCP - General Family Medicine 11/05/19 documented as of this encounter
--- OUTSIDE RECORDS SUMMARY | 2023-08-22 17:28 | External Medical Summary | Summary of Care ---
Author Name Unknown Organization [facility] Address [address] [facility] [place] [address] Phone [phone] Care Team Providers Care Loan And Credit Manager Name Role Phone Favian Castellon Primary Care Provider Encounter Details Date Type Department Care Team Description 02/28/2023 Orders Only Pharmacy, [facility] [address] [facility] [place] [id number] [facility] [address] [facility] [place] [id number] Type 2 diabetes mellitus with hemoglobin A1c goal of less than 8.0% ([facility])* Allergies No known active allergiesdocumented as of this encounter (statuses as of 02/28/2023) Medications Medication Sig Dispensed Refills Start Date [...] 30 mL 3 08/16/2022 Active Dexcom G6 Home Care Companion Device Use as directed . Use to [...] 11/25/2022 Active Vitamin D (Ergocalciferol) 1.25 MG (18199 UT) Oral Capsule (Drisdol) Take 1 capsule by mouth once a week 12 Capsule 0 11/28/2022 Active documented as of this encounter (statuses as of 02/28/2023) Active Problems Problem Noted Date MDD (major [...] as of this encounter (statuses as of 02/28/2023) Resolved Problems Problem Noted Date Resolved Date [...] as of this encounter (statuses as of 02/28/2023) Immunizations Name Administration Dates Next Due COVID-19 mRNA, LNP-s, No Pre serve, 2-Dose Series (Pfizer) 08/15/2021,01/23/2021,12/29/2020 Hepatitis B, 20+ yrs 06/29/2015,01/19/2015,01/19 Pneumococcal Conjugate Vacci ne, 20-valent ([id number]) 06/27/2022 Pneumococcal Polysaccharide PPV23 (Pneumovax) 02/10/2007 Seasonal [...] [facility] [address] [place] [address] 05/14/2023 Office Visit Family Medicine Favian Castellon DO [address] [place] [address] 09/05/2023 Office Visit Neurology Sommer Che PA-C [address] [place] [address] Scheduled Orders Name Type Priority Associated Diagnoses Orde r Schedule HEMOGLOBIN A1C Lab Routine Type 2 diabetes mellitus with hemoglobin A1c goal of less than 8.0% (HCC) Expected: 02/28/2023 (Approximate), Expires: 02/29/2024 Scheduled Procedures Name Priority Associated Diagnoses Date/Ti [...] D LEVEL ONCE IN A LIFETIME-USE SMARTSET# 28045 Completed 02/14/2023, 09/15/2019, 01/21/2019, Additional history exists GARDASIL-HPV IMMUNIZATION SERIES Aged Out No longer eligible based on patient's age to complete this topic HIV Screening Discontinued MENINGOCOCCAL (MENACTRA/MENVEO) Aged Out No longer eligible based on patient's age to complete this topic documented as of this encounter Medical Devices Implanted Type Area Garden Worker Device Identifier Shelf Expiration Date Model / Serial / Lot Lens 24.0 Mx60e - [id number] - [id number] Implanted:Qty: 1 on 04/30/2018 by Martin Donnelly MD at OR [facility] Left: Eye BAUSCH [employer] LOMB 01/10/2021 [id number]-51.0 / [id number] / [id number] Mx60 +23.0d Implanted:Qty: 1 on 05/12/2018 by Martin Donnelly MD at OR [facility] Right: Eye 07/12/2020 AG0038.0 / [id number] / [id number] Duraclip 16mm Xlg Repostn - [id number] Implanted:Qty: 2 on 08/23/2022 by Sudhakar Martell MD at [facility] [employer] 11/28/2023 [id number] / / documented as of this encounter Visit Diagnoses Diagnosis Type 2 diabetes mellitus with hemoglobin A1c goal of less than 8.0% ([facility])- Primary documented in this encounter Advance [...] and were consensually agreed upon. Care Teams Loan And Credit Manager Relationship Specialty Start Date End Date Favian Castellon DO [address] [place] [address] PCP - General Family Medicine 11/05/19 documented as of this encounter
--- OUTSIDE RECORDS SUMMARY | 2023-08-22 17:29 | External Medical Summary | Summary of Care ---
Author Name Unknown Organization [facility] Address [address] [facility] [place] [address] Phone [phone] Care Team Providers Care Salvage Cutter Name Role Phone Favian Castellon DO Primary Care Provider Reason for Visit * Reason Comments eRx-Medication Refill Encounter Details Date Type Department Care Team Description 02/12/2023 Refill Family Practice [facility] [address] [place] [phone] Favian Castellon DO [address] [place] [address] Encounter for long-term (current) use of medications* Allergies No known active allergiesdocumented as of this encounter (statuses as of 02/25/2023) Medications Medication Sig Dispensed Refills Start Date [...] mL 3 08/16/2022 Active Dexcom G6 Adjunct Faculty Device Use as directed . Use to [...] Active Dulaglutide 1.5 MG/0.5ML Subcutaneous Solution Pen-injector (CipherApps) Inject 1.5 mg under the skin once a week. 2 mL 11 11/14/2022 Active Alendronate Sodium 70 MG Oral Tablet (Fosamax) Take 1 Tablet by mouth once a week. with 8 oz. water 30 minutes before first meal of the day. Remain upright for 30 min after taking tablet. 15 Tablet 5 11/25/2022 Active Vitamin D (Ergocalciferol) 1.25 MG (45371 UT) Oral Capsule (Drisdol) Take 1 capsule by mouth once a week 12 Capsule 0 11/28/2022 Active documented as of this encounter (statuses as of 02/25/2023) Active Problems Problem Noted Date MDD (major [...] as of this encounter (statuses as of 02/25/2023) Resolved Problems Problem Noted Date Resolved Date [...] as of this encounter (statuses as of 02/25/2023) Immunizations Name Administration Dates Next Due COVID-19 mRNA, LNP-s, No Pre serve, 2-Dose Series (Pfizer) 08/15/2021,01/23/2021,12/29/2020 Hepatitis B, 20+ yrs 06/29/2015,01/19/2015,01/19 Pneumococcal Conjugate Vacci ne, 20-valent ([id number]) 06/27/2022 Pneumococcal Polysaccharide PPV23 (Pneumovax) 02/10/2007 Seasonal [...] Disp Refills Vitamin D (Ergocalciferol) 1.25 MG (44043 *12 Cap*0 Sig: Take 1 capsule by mouth once a week Refused By: MK ALEMAN Reason for Refusal: Refill Not Appropriate * Telephone Encounter - Mk Aleman MD - 02/12/2023 5:31 PM EDT Last vitamin D level from 2019. Needs updated bloodwork prior to refilling prescription vitamin D supplement. Lab work ordered. * Telephone Encounter - Ayana Orosco [facility] - 02/12/2023 5:12 PM EDTPending Prescriptions: Disp Refills Vitamin D (Ergocalciferol) 1.25 MG (35380 *12 Cap*0 Sig: Take 1 capsule by mouth once a week * Telephone Encounter - Ayana Orosco [facility] - 02/12/2023 5:11 PM EDT Telepharmacy is currently not authorized to approve refills for the pended medication(s) per refillprotocol. Please approve if appropriate. Patient needs update Vit D level. Lab ordered. Pending Prescriptions: Disp Refills Vitamin D (Ergocalciferol) 1.25 MG (32944*12 Cap*0 Sig: Take 1 capsule by mouth once a week Thank you, Ayana Orosco [facility] Clinical Pharmacist TelePharmacy 02/12/23 5:11 PM [phone] * Telephone Encounter - Ayana Orosco [facility] - 02/12/2023 5:08 PM EDT Did you pend patient's preferred pharmacy and medication before forwarding?yes Pharmacy: [facility] [address] Pending Prescriptions: Disp Refills Vitamin D (Ergocalciferol) 1.25 MG (75980*12 Cap*0 Sig: Take 1 capsule by mouth [...] Care Team Description 03/12/2023 Office Visit Pharmacy [facility] [place] [address] [place] [address] 05/14/2023 Office Visit Family Medicine Favian Castellon DO [address] [place] [address] 09/05/2023 Office Visit Neurology Sommer Che PA-C [address] [place], [place] [address] [address] Scheduled Procedures Name Priority Associated Diagnoses Date/Ti [...] 08/11/2020, Additional history exists HgA1C 07/10/2023 01/07/2023, 1204/2022, 06/26/2022, Additional history exists Depression Screening, Annual [...] D LEVEL ONCE IN A LIFETIME-USE SMARTSET# 59612 Completed 02/14/2023, 09/15/2019, 01/21/2019, Additional history exists GARDASIL-HPV IMMUNIZATION SERIES Aged Out No longer eligible based on patient's age to complete this topic HIV Screening Discontinued MENINGOCOCCAL (MENACTRA/MENVEO) Aged Out No longer eligible based on patient's age to complete this topic documented as of this encounter Medical Devices Implanted Type Area Citrix Lead Device Identifier Shelf Expiration Date Model / Serial / Lot Lens 24.0 Mx60e - [id number] - [id number] Implanted:Qty: 1 on 04/30/2018 by Martin Donnelly MD at OR [facility] Left: Eye BAUSCH & LOMB 01/10/2021 HH71N-67.0 / [id number] / [id number] Mx60 +23.0d Implanted:Qty: 1 on 05/12/2018 by Martin Donnelly MD at OR [facility] Right: Eye 07/12/2020 GP5954.0 / [id number] / [id number] Duraclip 16mm Xlg Repostn - [id number] Implanted:Qty: 2 on 08/23/2022 by Sudhakar Martell MD at ENDOSCOPY [facility] CONMED JESSICA 11/28/2023 [id number] / / documented as of this encounter Results * 25-HYDROXY VITAMIN D (02/14/2023 11:56 AM EDT) 25-Hydroxy Vitamin D 71 >19 ng/mL 02/14/2023 8:37 PM EDT LABORATORY [facility] Blood Venous blood specimen / Unknown Venipuncture / Unknown 02/14/2023 11:56 AM EDT 02/14/2023 11:56 AM EDT Narrative [facility]ATORY [facility] - 02/14/2023 8:37 PM EDT Deficient: <20 ng/mL Insufficient: 20-29 ng/mL Recommended/Optimum:30-50 ng/mL Vitamin D intoxication is rare. If suspicious of Vitamin D toxicity, evaluation of serum Calcium and PTH is recommended. Ayana Baigsanchezrobinson [facility] LAB BLOOD ORDERAB LES [facility] [address] [facility] [place] [address] documented in [...] and were consensually agreed upon. Care Teams Salvage Cutter Relationship Specialty Start Date End Date Favian Castellon DO [address] [place] [address] PCP - General Family Medicine 11/05/19 documented as of this encounter
== END 2023-08-20 11:31 | disposition home or self-care (01) ==
LOC: 3N 07:58 → ASU 07:58

== ENCOUNTER 2025-01-19 11:38 | Inpatient (IN) ==
[2025-01-19] MEDS: SODIUM CHLORIDE 0.9% 1,000 ML IV ONE (13:32)
[2025-01-19] MEDS: MoRPHine SULFATE 4 MG/ML 1 ML CARP\\VIAL IV STA ×2 (13:33→18:28)
[2025-01-19] MEDS: PANTOprazole 40 MG/10 ML SYR IV ONE (13:33)
[2025-01-19] MEDS: ONDANSETRON INJ 2 MG/ML 2 ML VIAL IV STA (13:33)
[2025-01-19 13:39] LABS: Basophils # (auto) 0.02 K/uL (0.00-0.20); Basophils % (auto) 0.3 %; Eosinophils # (auto) 0.18 K/uL (0.00-0.50); Eosinophils % (auto) 2.8 %; Hematocrit (blood only) 37.5 % (37.0-47.0); Hemoglobin 12.1 g/dl (12.0-16.0); Immature Granulocytes # (auto) 0.03 K/uL (0.01-0.20); Immature Granulocytes % (auto) 0.5 %; Lymphocytes # (auto) 0.51 K/uL (1.20-3.40); Mean Corpuscular Hemoglobin 27.3 pg (25.0-34.0); Mean Corpuscular Hgb Conc 32.3 g/dL (32.0-36.0); Mean Corpuscular Volume 84.7 fL (80.0-100.0); Mean Platelet Volume 9.7 fL (9.4-12.4); Monocytes # (auto) 0.52 K/uL (0.11-0.59); Monocytes % (auto) 8.2 %; Neutrophils % (auto) 80.2 %; Platelet Count 223 K/uL (130-400); RDW Coefficient of Variation 15.5 % (11.5-14.5); Red Blood Count 4.43 M/uL (4.20-5.40); White Blood Count 6.36 K/ul (4.8-10.8)
[2025-01-19 14:01] LABS: Albumin Globulin Ratio 1.1 (0.9-2); Albumin Level 3.8 gm/dl (3.4-5.0); BUN Creatinine Ratio 18.8 (10-20); Bilirubin,Total 0.5 mg/dl (0.2-1.0); Calcium 9.6 mg/dl (8.6-10.3); Creatinine Clr Calc Pharmacy 59.1 ml/min; Globulin 3.4 gm/dl (2.5-4.0); Magnesium 2.2 mg/dl (1.7-2.4); Potassium 4.1 mmol/L (3.5-5.1); Total Protein 7.2 gm/dl (6.0-8.3)
[2025-01-19 14:06] LABS: Prothrombin Time 10.9 Seconds (9.0-12.0)
[2025-01-19 14:46] LABS: Adenovirus PCR Not Detected (NotDetected); Bordetella parapertussis PCR Not Detected (NotDetected); Bordetella pertussis PCR Not Detected (NotDetected); Chlamydia pneumoniae PCR Not Detected (NotDetected); Coronavirus 229E PCR Not Detected (NotDetected); Coronavirus CoV-2 (COVID19)PCR Not Detected (NotDetected); Coronavirus HKU1 PCR Not Detected (NotDetected); Coronavirus NL63 PCR Not Detected (NotDetected); Coronavirus OC43PCR Not Detected (NotDetected); Human Metapneumovirus PCR Not Detected (NotDetected); Influenza A PCR Not Detected (NotDetected); Influenza B PCR Not Detected (NotDetected); Mycoplasma pneumoniae PCR Not Detected (NotDetected); Parainfluenza Virus 1 PCR Not Detected (NotDetected); Parainfluenza Virus 2 PCR Not Detected (NotDetected); Parainfluenza Virus 3 PCR Not Detected (NotDetected); Parainfluenza Virus 4 PCR Not Detected (NotDetected); Respiratory Syncytial VirusPCR Not Detected (NotDetected); Rhinovirus/Enterovirus PCR Not Detected (NotDetected)
[2025-01-19 15:06] LABS: Appearance Urine Clear (Clear); Bacteria Urine Automated None Seen (None Seen); Bilirubin Urine 1+ (Negative); Blood Urine Negative (Negative); Cast Urine Automated >20 /lpf (0-2); Color Urine Dark Yellow; Glucose Urine UA Negative (Negative); Hyaline Casts Urine Present /lpf (None Presnt); Ketones Urine Trace (Negative); Leukocyte Esterase Urine Negative (Negative); Mucus Urine Present (None Prsent); Nitrite Urine Negative (Negative); Protein Urine Trace (Negative); RBC Urine Automated 0-2 /hpf (0-2); Specific Gravity Urine 1.025 (1.000-1.030); Urobilinogen Urine Negative (Negative); WBC Urine Automated 0-5 /hpf (0-5)
[2025-01-19] MEDS: SODIUM CHLORIDE 0.9% 500 ML IV ONE (15:57)
[2025-01-19 16:08] LABS: Troponin I High Sensitivity 9.9 pg/ml (0-14)
--- NOTE | 2025-01-19 17:15 | Emergency Department Note ---
Impression & Plan Acute dehydration, Nausea & vomiting, Diarrhea, Intractable back pain, Metastasis to spinal column ED Provider Note ED Provider Note NAME: ARCELIA BARBOSA AGE:69 SEX: Female : 1955 ARRIVES VIA: Private vehicle INFORMANT: Patient ED PROVIDER(s): Marika Hutchins DO CHIEF COMPLAINT: Dehydration, referred by radiation oncology HPI: This is a 69-year-old female with known metastatic breast cancer who presents the emergency department after being seen for a radiation oncology appointment today. Staff there sent the patient here due to concern for 2 to 3 days of nausea, vomiting, diarrhea and concern for dehydration or electrolyte abnormalities. Patient is not currently receiving chemotherapy. Family bedside states she has not been taking her medications the last 2 to 3 days additionally. They note waxing and waning of her cognition as patient has mets in the brain additionally. Patient complains of mild abdominal pain and back pain but has known liver mets and spine mets. They states she has complained of these areas of pain previously. Patient was recently changed from oxycodone to morphine at home to help with pain control. No recent trauma or injury, no known sick contacts. She denies fevers or chills, chest pain, shortness of breath. She denies noting any blood in the emesis or stools. I did contact Urszula in radiation oncology via [employer] who had seen the patient this am and sent her to the ER. PAST MEDICAL HISTORY:See Below PAST SURGICAL HISTORY:See Below FAMILY HISTORY:See Below SOCIAL HISTORY:See Below HOME MEDICATIONS:See Below ALLERGIES:See Below VITALS:See Below PHYSICAL EXAMINATION: GENERAL: alert, well appearing, well nourished, no distress, non-toxic EYE EXAM: normal conjunctiva, PERRL and EOM's grossly intact OROPHARYNX: no exudate, no erythema, lips, buccal mucosa, and tongue normal and mucous membranes are dry NECK: supple, no nuchal rigidity, no adenopathy, non-tender LUNGS: Decreased bilaterally to auscultation. Normal chest wall mechanics, no w/r/r HEART: no murmurs, S1 normal and S2 normal ABDOMEN: abdomen soft, non-tender, normo-active bowel sounds, no masses, no rebound or guarding. SKIN: no rashes, petechiae, orbruising UPPER EXTREMITIES: upper extremities are grossly normal. FROM, nml pulses b/l. LOWER EXTREMITIES: No pitting edema. FROM, nml pulses b/l. NEURO EXAM: Intermittently confused, cranial nerves II-XII grossly intact, normal speech, no facial droop,nogross weakness of arms, no gross weakness of legs. Gross sensation intact. No ataxia. Vital Signs: reviewed and remarkable Differential Diagnosis: Dehydration, LURDES, medication ADR, electrolyte abnormality, GI bleed, typhlitis, worsening metastatic burden, bowel obstruction, as well as others were considered MEDICAL DECISION MAKING: This is a 69 yo female who presents to the ER after being referred here by radiation oncology due to concern for dehydration and electrolyte abnormality. She was afebrile and VS stable. Labs drawn and sent, IV established, EKG and CXR performed and interpreted at bedside, and patient placed on telemetry. She was started on IVF and given IV zofran and IV morphine. IV protonix added. Labs reassuring. Abd exam soft and nontender. No further vomiting or diarrhea while in the ER. Patient asked to try juice and felt well. She began to tolerate po. She was given additional IV pain medication and still had persistent back pain. She was given her oral keppra, morphine, and steroids. Patient continued to complain of pain. Lidoderm patch added. We discussed prior meds for her pain and concern for adequate pain control at home. After further discussion with family, case discussed with hospitalist team for additional evaluation. Consultation(s): 1824: Discussed with Heladio Cifuentes hospitalist team, for additional evaluation and mgmt. ER Treatment Provided: See below Diagnostics Interpreted By Me: -ECG: Normal sinus 93, normal axis, normal intervals, no acute ST/T wave changes -Cardiac Monitoring: An order was placed for continuous cardiac monitoring. The monitor shows a rate of 98 with normal sinus rhythm. -Laboratory studies: As stated above and show below. -Imaging studies: X-ray Chest: A single view study of the chest was reviewed and was negative for cardiomegaly, focal infiltrate, effusion, pulmonary edema, or wide mediastinum. Triage Nursing Note Reviewed Prior/Outside Records Reviewed Past Med/Surg History Problem List (Updated 01/20/25 @ 09:50 by Kalpana Corral PA-C) Metastatic breast cancer Metastasis to spinal column (Acute) Intractable back pain (Acute) Diarrhea (Acute) Nausea & vomiting (Acute) Acute dehydration (Acute) Breast cancer metastasized to brain (Acute 12/30/24) Malignant neoplasm of upper-outer quadrant of left breast in female, estrogen receptor negative (Chronic 06/24/23) Cancer of left breast Tremor pt saw neuro 08/2023. tremor is mild; b/l hands and head. per neuro, 'mild and would not treat at this time'; plan to do further testing after breast surgery 2/2 FH of Parkinsons Lumbar radiculopathy receives injections Lower extremity edema mild; takes lasix PRN Obesity Diabetes (Chronic) Hypertension (Chronic) Dyslipidemia Hypothyroidism Diabetes type 2, uncontrolled 06/24/23 Ha1c: 8.2% Medical History Port-A-Cath in place (09/18/23) Kevin's palsy hx 2017 > no further problems Breast cancer dx jul 01 2023 at [facility] > left breast Anxiety hx of > none at present History of COVID-2021; resolved Hypertension Surgical History History of bilateral mastectomy (08/18/23) Bilateral Mastectomies with Left Axillary [place] Lymph Node Biopsy(Bilateral) Dr. Robi Geiger History of dilatation and curettage History of breast biopsy (06/24/23) Left History of colonoscopy History of tooth extraction History of cataract surgery bilat History of tonsillectomy Hx of laparoscopic gastric banding Family History Mother , Passed Age 90 Breast cancer, Onset Age: 75 Lumpectomy and RT Father No problems noted. Brother No problems noted. Brother No problems noted. Brother No problems noted. Sister No problems noted. Sister No problems noted. Son No problems noted. 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 [employer] How many Children do You have: 1 Other Information That Helps Us Care for You: No Feels Safe at Home: Yes Safety Concerns: Feels Safe At This Time Childhood Exposure to Second-Hand Smoke: No Diet: regular caffeine: Yes during the past year weight has: remained stable Dental Care, Regularly: Yes Assistive Devices: Cane and Walker Allergies Allergies Allergy/AdvReac Type Severity Reaction Status Date / Time No Known Allergies Allergy Verified 01/03/25 09:48 Home Meds Home Medications Medication Instructions Recorded Confirmed acetone (urine) test (Ketostix #25 ea 05/11/19 01/10/25 strips) atorvastatin 80 mg tablet 80 mg PO PM 05/11/19 01/19/25 ergocalciferol (vitamin D2) 1,250 50,000 units PO WEEKLY #14 caps 05/11/19 01/19/25 mcg (50,000 unit) capsule insulin aspart U-100 100 unit/mL 5 - 25 units subcut UD 05/11/19 01/19/25 (3 mL) subcutaneous pen (Novolog FlexPen U-100 Insulin aspart) lancets 33 gauge (OneTouch Delica #100 ea 05/11/19 01/10/25 Lancets) levothyroxine 100 mcg tablet 100 mcg PO QAM 05/11/19 01/19/25 pen needle, diabetic 32 gauge x #10 ea 05/11/19 01/10/25 5/32" (BD Ultra-Fine [place]ala Pen Needle) aspirin 81 mg tablet,delayed 81 mg PO QAM 08/07/19 01/19/25 release (Karrie Low Dose Aspirin) atenolol 25 mg tablet 25 mg PO QAM 08/08/23 01/19/25 losartan 100 1 tab PO PM 08/08/23 01/19/25 mg-hydrochlorothiazide 25 mg tablet urea 20 % topical cream 1 applic topical BID PRN Other 02/24/24 01/19/25 insulin glargine 100 unit/mL 30 unit subcut HS 01/03/25 01/19/25 subcutaneous solution (Lantus U-100 Insulin) acetaminophen 500 mg tablet 1,000 mg PO Q8H PRN Pain 01/19/25 01/19/25 levetiracetam 500 mg tablet 500 mg PO BID 01/19/25 01/19/25 memantine 5 mg tablet 5 mg PO UD Memory 01/19/25 01/19/25 morphine 15 mg immediate release 15 mg PO Q4H PRN Pain 01/19/25 01/19/25 tablet omeprazole 20 mg capsule,delayed 20 mg PO DAILY 01/19/25 01/19/25 release sennosides 8.6 mg tablet 8.6 mg PO BID 01/19/25 01/19/25 tirzepatide 12.5 mg/0.5 mL 12.5 mg subcut WK 01/19/25 01/19/25 subcutaneous pen injector ([place]) Previous Rx's Medication Instructions Recorded blood sugar diagnostic (FreeStyle #6 Boxes 05/21/19 Precision Humza Strips) FreeStyle Adán 14 Day [place] #1 ea 02/17/20 (flash glucose scanning reader) FreeStyle Adán 14 Day Sensor #7 ea 02/17/20 (flash glucose sensor) dexamethasone 4 mg tablet 4 mg PO Q12H #30 tabs 01/17/25 Results & Data (ED) Vital Signs Vital Signs - 24 hr 01/19/25 11:40 01/19/25 12:18 01/19/25 12:28 Temperature 36.5 C Temperature Source Temporal Artery Scan Pulse Rate 99 H 91 H Pulse Rate [Apical] 90 Pulse Rhythm Regular Pulse Rhythm [Apical] Regular Pulse Strength [Apical] Normal Respiratory Rate 20 18 Respiratory Effort / Characteristics Non-Labored Spontaneous Non-Labored Spontaneous Respiratory Depth Normal Normal Respiratory Pattern Regular Regular Blood Pressure 118/77 Blood Pressure [Right Arm] 126/79 Blood Pressure Mean 90 Blood Pressure Mean [Right Arm] 94 Blood Pressure Position Sitting Blood Pressure Position [Right Arm] Lying Pulse Oximetry 95 96 Oxygen Delivery Method Room Air Room Air Sepsis Recent Fever Within 48 Hours No Sepsis New/Unexplained Change in Mental Status No Sepsis Action Taken by Nursing No Action Required 01/19/25 14:00 01/19/25 15:07 01/19/25 16:27 Temperature Temperature Source Pulse Rate 100 H Pulse Rate [Apical] 94 H 95 H Pulse Rhythm Pulse Rhythm [Apical] Regular Regular Pulse Strength [Apical] Normal Respiratory Rate 16 18 Respiratory Effort / Characteristics Non-Labored Spontaneous Non-Labored Spontaneous Respiratory Depth Normal Normal Respiratory Pattern Regular Blood Pressure Blood Pressure [Right Arm] 149/108 H 127/80 Blood Pressure Mean Blood Pressure Mean [Right Arm] 121 95 Blood Pressure Position Blood Pressure Position [Right Arm] Lying Pulse Oximetry 98 96 Oxygen Delivery Method Room Air Room Air Sepsis Recent Fever Within 48 Hours Sepsis New/Unexplained Change in Mental Status Sepsis Action Taken by Nursing 01/19/25 17:00 01/19/25 19:00 Temperature Temperature Source Pulse Rate Pulse Rate [Apical] 97 H 102 H Pulse Rhythm Pulse Rhythm [Apical] Regular Regular Pulse Strength [Apical] Normal Respiratory Rate 20 21 Respiratory Effort / Characteristics Non-Labored Spontaneous Non-Labored Spontaneous Respiratory Depth Normal Normal Respiratory Pattern Regular Regular Blood Pressure Blood Pressure [Right Arm] 146/81 H 125/88 Blood Pressure Mean Blood Pressure Mean [Right Arm] 102 100 Blood Pressure Position Blood Pressure Position [Right Arm] Lying Lying Pulse Oximetry 96 94 Oxygen Delivery Method Room Air Room Air Sepsis Recent Fever Within 48 Hours Sepsis New/Unexplained Change in Mental Status Sepsis Action Taken by Nursing Laboratory Data 01/20/25 06:00 01/20/25 06:00 Lab Results 01/19/25 01/19/25 01/19/25 Range/Units 13:15 13:20 14:40 WBC 6.36 (4.8-10.8) K/ul RBC 4.43 (4.20-5.40) M/uL Hgb 12.1 (12.0-16.0) g/dl Hct 37.5 (37.0-47.0) % MCV 84.7 (80.0-100.0) fL MCH 27.3 (25.0-34.0) pg MCHC 32.3 (32.0-36.0) g/dL RDW Std Deviation 47.0 H (36.4-46.3) fL RDW Coeff of El 15.5 H (11.5-14.5) % Plt Count 223 (130-400) K/uL MPV 9.7 (9.4-12.4) fL Immature Gran % (Auto) 0.5 % Neut % (Auto) 80.2 % Lymph % (Auto) 8.0 % [place] % (Auto) 8.2 % Eos % (Auto) 2.8 % Baso % (Auto) 0.3 % Neut # (Auto) 5.10 (1.40-6.50) K/uL Lymph # (Auto) 0.51 L (1.20-3.40) K/uL [place]lier # (Auto) 0.52 (0.11-0.59) K/uL Eos # (Auto) 0.18 (0.00-0.50) K/uL Baso # (Auto) 0.02 (0.00-0.20) K/uL Immature Gran # (Auto) 0.03 (0.01-0.20) K/uL PT 10.9 (9.0-12.0) Seconds INR 1.0 (0.9-1.1) Sodium 137 (136-145) mmol/L Potassium 4.1 (3.5-5.1) mmol/L Chloride 99 (98-107) mmol/L Carbon Dioxide 30 (21-32) mmol/L Anion Gap 8 (3-11) BUN 15 (6-23) mg/dl Creatinine 0.80 (0.6-1.2) mg/dl Est Cr Clr Drug Dosing 59.1 ml/min eGFR 80.71 BUN/Creatinine Ratio 18.8 (10-20) Glucose 123 H (70-99(Fasting)) mg/dl Calcium 9.6 (8.6-10.3) mg/dl Magnesium 2.2 (1.7-2.4) mg/dl Total Bilirubin 0.5 (0.2-1.0) mg/dl AST 47 H (13-39) U/L ALT 62 H (7-52) U/L Alkaline Phosphatase 211 H (34-104) U/L Troponin I High Sens 9.9 (0-14) pg/ml Total Protein 7.2 (6.0-8.3) gm/dl Albumin 3.8 (3.4-5.0) gm/dl Globulin 3.4 (2.5-4.0) gm/dl Albumin/Globulin Ratio 1.1 (0.9-2) Lipase 10 L (11-82) U/L Urine Color Dark Yellow Urine Appearance Clear (Clear) Urine pH 5.0 (4.5-7.5) Ur Specific [place] 1.025 (1.000-1.030) Urine Protein Trace H (Negative) Urine Glucose (UA) Negative (Negative) Urine Ketones Trace H (Negative) Urine Blood Negative (Negative) Urine Nitrite Negative (Negative) Urine Bilirubin 1+ H (Negative) Urine Urobilinogen Negative (Negative) Ur Leukocyte Esterase Negative (Negative) Urine WBC (Auto) 0-5 (0-5) /hpf Urine RBC (Auto) 0-2 (0-2) /hpf U Hyaline Cast (Auto) >20 H (0-2) /lpf U Epithel Cells (Auto) 6-10 H (0-2) /hpf Urine Bacteria (Auto) None Seen (None Seen) Hyaline Casts Present A (None Presnt) /lpf Urine Mucus Present A (None Prsent) Adenovirus (PCR) Not Detected (NotDetected) B. pertussis DNA (PCR) Not Detected (NotDetected) B.parapertussis DNA PCR Not Detected (NotDetected) C. pneumoniae DNA (PCR) Not Detected (NotDetected) Coronavirus OC43 (PCR) Not Detected (NotDetected) Coronavirus HKU1 (PCR) Not Detected (NotDetected) Coronavirus 229E (PCR) Not Detected (NotDetected) SARS-CoV-2 (PCR) Not Detected (NotDetected) Coronavirus NL63 (PCR) Not Detected (NotDetected) Human Metapneumovir PCR Not Detected (NotDetected) Influenza Type A (PCR) Not Detected (NotDetected) Influenza Type B (PCR) Not Detected (NotDetected) M. pneumoniae (PCR) Not Detected (NotDetected) Parainfluenza 1 (PCR) Not Detected (NotDetected) Parainfluenza 2 (PCR) Not Detected (NotDetected) Parainfluenza 3 (PCR) Not Detected (NotDetected) Parainfluenza 4 (PCR) Not Detected (NotDetected) RSV (PCR) Not Detected (NotDetected) Entero/Rhino (PCR) Not Detected (NotDetected) 01/19/25 Range/Units 16:44 WBC (4.8-10.8) K/ul RBC (4.20-5.40) M/uL Hgb (12.0-16.0) g/dl Hct (37.0-47.0) % MCV (80.0-100.0) fL MCH (25.0-34.0) pg MCHC (32.0-36.0) g/dL RDW Std Deviation (36.4-46.3) fL RDW Coeff of El (11.5-14.5) % Plt Count (130-400) K/uL MPV (9.4-12.4) fL Immature Gran % (Auto) % Neut % (Auto) % Lymph % (Auto) % [place] % (Auto) % Eos % (Auto) % Baso % (Auto) % Neut # (Auto) (1.40-6.50) K/uL Lymph # (Auto) (1.20-3.40) K/uL [place] # (Auto) (0.11-0.59) K/uL Eos # (Auto) (0.00-0.50) K/uL Baso # (Auto) (0.00-0.20) K/uL Immature Gran # (Auto) (0.01-0.20) K/uL PT (9.0-12.0) Seconds INR (0.9-1.1) Sodium (136-145) mmol/L Potassium (3.5-5.1) mmol/L Chloride (98-107) mmol/L Carbon Dioxide (21-32) mmol/L Anion Gap (3-11) BUN (6-23) mg/dl Creatinine (0.6-1.2) mg/dl Est Cr Clr Drug Dosing ml/min eGFR BUN/Creatinine Ratio (10-20) Glucose (70-99(Fasting)) mg/dl Calcium (8.6-10.3) mg/dl Magnesium (1.7-2.4) mg/dl Total Bilirubin (0.2-1.0) mg/dl AST (13-39) U/L ALT (7-52) U/L Alkaline Phosphatase (34-104) U/L Troponin I High Sens 7.3 (0-14) pg/ml Total Protein (6.0-8.3) gm/dl Albumin (3.4-5.0) gm/dl Globulin (2.5-4.0) gm/dl Albumin/Globulin Ratio (0.9-2) Lipase (11-82) U/L Urine Color Urine Appearance (Clear) Urine pH (4.5-7.5) Ur Specific [place] (1.000-1.030) Urine Protein (Negative) Urine Glucose (UA) (Negative) Urine Ketones (Negative) Urine Blood (Negative) Urine Nitrite (Negative) Urine Bilirubin (Negative) Urine Urobilinogen (Negative) Ur Leukocyte Esterase (Negative) Urine WBC (Auto) (0-5) /hpf Urine RBC (Auto) (0-2) /hpf U Hyaline Cast (Auto) (0-2) /lpf U Epithel Cells (Auto) (0-2) /hpf Urine Bacteria (Auto) (None Seen) Hyaline Casts (None Presnt) /lpf Urine Mucus (None Prsent) Adenovirus (PCR) (NotDetected) B. pertussis DNA (PCR) (NotDetected) B.parapertussis DNA PCR (NotDetected) C. pneumoniae DNA (PCR) (NotDetected) Coronavirus OC43 (PCR) (NotDetected) Coronavirus HKU1 (PCR) (NotDetected) Coronavirus 229E (PCR) (NotDetected) SARS-CoV-2 (PCR) (NotDetected) Coronavirus NL63 (PCR) (NotDetected) Human Metapneumovir PCR (NotDetected) Influenza Type A (PCR) (NotDetected) Influenza Type B (PCR) (NotDetected) M. pneumoniae (PCR) (NotDetected) Parainfluenza 1 (PCR) (NotDetected) Parainfluenza 2 (PCR) (NotDetected) Parainfluenza 3 (PCR) (NotDetected) Parainfluenza 4 (PCR) (NotDetected) RSV (PCR) (NotDetected) Entero/Rhino (PCR) (NotDetected) Administered Medications Acetaminophen (Acetaminophen 500 Mg Tab) 1,000 mg PO Q8H [facility] Stop: 02/18/25 21:59 Last Admin: 01/20/25 13:06 Dose: 1,000 mg Documented By: Admin: 01/20/25 05:53 Dose: 1,000 mg Documented By: Admin: 01/19/25 23:16 Dose: 1,000 mg Documented By: ACO Aspirin (Aspirin 81 Mg Ectab) 81 mg PO QAM JODY Stop: 02/19/25 08:59 Last Admin: 01/20/25 08:08 Dose: 81 mg Documented By: SHAILESH Atenolol (Atenolol 25 Mg Tablet) 25 mg PO QAM [facility] Stop: 02/18/25 21:53 Last Admin: 01/20/25 08:08 Dose: 25 mg Documented By: Admin: 01/19/25 23:19 Dose: 25 mg Documented By: IVA Dexamethasone (Dexamethasone 4 Mg Tab) 4 mg PO Q12H [facility] Stop: 02/19/25 08:59 Last Admin: 01/20/25 08:08 Dose: 4 mg Documented By: SHAILESH Enoxaparin Sodium (Enoxaparin Inj 40 Mg/0.4 Ml Syr) 40 mg SQ PM [facility] Stop: 02/18/25 21:53 Last Admin: 01/19/25 23:17 Dose: 40 mg Documented By: IVA Hydromorphone HCl (Hydromorphone Inj 1 Mg/Ml Syringe) 1 mg IV Q6H PRN PRN Reason: Severe Pain (Scale 7, 8, 9,10) Stop: 02/02/25 21:53 Last Admin: 01/20/25 15:21 Dose: 1 mg Documented By: SHAILESH Insulin Aspart (Insulin Aspart Per Unit Charge) 0 units SC ACHS [facility] Stop: 02/18/25 21:53 Last Admin: 01/20/25 17:44 Dose: 12 units Documented By: SHAILESH Co-signed By: MIRZA Admin: 01/20/25 13:03 Dose: 12 units Documented By: SHAILESH Co-signed By: MMS Admin: 01/20/25 09:09 Dose: 5 units Documented By: SHAILESH Co-signed By: [facility] Admin: 01/19/25 22:20 Dose: Not Given Documented By: IVA Co-signed By: ALE Levetiracetam (Levetiracetam 500 Mg Tab) 500 mg PO BID [facility] Stop: 02/18/25 21:53 Last Admin: 01/20/25 08:08 Dose: 500 mg Documented By: Admin: 01/19/25 23:19 Dose: 500 mg Documented By: IVA Levothyroxine Sodium (Levothyroxine Sodium 100 Mcg Tablet) 100 mcg PO DAILYBB [facility] Stop: 02/19/25 06:29 Last Admin: 01/20/25 05:53 Dose: 100 mcg Documented By: IVA Memantine (Memantine Hcl 5 Mg Tab) 5 mg PO BID JODY Stop: 02/18/25 21:53 Last Admin: 01/20/25 08:08 Dose: 5 mg Documented By: Admin: 01/19/25 23:18 Dose: 5 mg Documented By: IVA Ondansetron HCl (Ondansetron Inj 2 Mg/Ml 2 Ml Vial) 4 mg IV Q6H PRN PRN Reason: Nausea Stop: 02/18/25 21:53 Last Admin: 01/19/25 23:15 Dose: 4 mg Documented By: IVA Pantoprazole Sodium (Pantoprazole 40 Mg Tab) 40 mg PO DAILY JODY Stop: 02/19/25 08:59 Last Admin: 01/20/25 08:08 Dose: 40 mg Documented By: SHAILESH Discontinued Medications Dexamethasone (Dexamethasone 4 Mg Tab) 4 mg PO NOW ONE Stop: 01/19/25 18:09 Last Admin: 01/19/25 18:28 Dose: 4 mg Documented By: SALLIE Pantoprazole Sodium (Protonix) 40 mg in 10 mls @ 5 mls/min IV NOW ONE Stop: 01/19/25 12:49 Last Admin: 01/19/25 13:33 Dose: 5 mls/min Documented By: CHRISTEL Sodium Chloride (Nss) 1,000 mls @ 999 mls/hr IV .Q1H1M ONE Stop: 01/19/25 13:48 Last Infusion: 01/19/25 14:34 Dose: Infused Documented By: Admin: 01/19/25 13:32 Dose: 999 mls/hr Documented By: CHRISTEL Sodium Chloride (Nss) 500 mls @ 999 mls/hr IV .Q31M ONE Stop: 01/19/25 16:08 Last Infusion: 01/19/25 21:37 Dose: Infused Documented By: Admin: 01/19/25 15:57 Dose: 999 mls/hr Documented By: SALLIE Sodium Chloride (Nss) 500 mls @ 80 mls/hr IV .Q6H15M JODY Stop: 01/20/25 04:08 Last Infusion: 01/20/25 04:26 Dose: Infused Documented By: Admin: 01/19/25 22:11 Dose: 80 mls/hr Documented By: IVA Levetiracetam (Levetiracetam 500 Mg Tab) 500 mg PO NOW STA Stop: 01/19/25 16:50 Last Admin: 01/19/25 17:25 Dose: 500 mg Documented By: SALLIE Lidocaine (Lidocaine 5% 1 Patch) 1 patch TD NOW STA Stop: 01/19/25 18:11 Last Admin: 01/19/25 18:27 Dose: 1 patch Documented By: SALLIE Miscellaneous (Remove Lidoderm Patch) 1 each N/A ONE ONE Stop: 01/20/25 06:01 Last Admin: 01/20/25 05:53 Dose: 1 each Documented By: IVA Morphine Sulfate (Morphine Sulfate 4 Mg/Ml 1 Ml Carp\\Vial) 4 mg IV NOW STA Stop: 01/19/25 12:49 Last Admin: 01/19/25 13:33 Dose: 4 mg Documented By: CHRISTEL Morphine Sulfate (Morphine Sulfate Cr 15 Mg Tabcr) 15 mg PO NOW STA Stop: 01/19/25 16:50 Last Admin: 01/19/25 17:25 Dose: 15 mg Documented By: SALLIE Morphine Sulfate (Morphine Sulfate 4 Mg/Ml 1 Ml Carp\\Vial) 4 mg IV NOW STA Stop: 01/19/25 18:11 Last Admin: 01/19/25 18:28 Dose: 4 mg Documented By: SALLIE Ondansetron HCl (Ondansetron Inj 2 Mg/Ml 2 Ml Vial) 4 mg IV NOW STA Stop: 01/19/25 12:49 Last Admin: 01/19/25 13:33 Dose: 4 mg Documented By: CHRISTEL Discharge Plan Visit Data Chief Complaint: Vomiting Stated Complaint: CANCER, NOT EATING, VOMIT ED Provider: Marika Hutchins Discharge Problem: Acute dehydration, Nausea & vomiting, Diarrhea, Intractable back pain, Metastasis to spinal column Patient Disposition: Admitted As Inpatient Discharge Instructions Interventions: ED Discharge Assessment Last Done: 01/19/25 21:18
[2025-01-19] MEDS: levETIRAcetam 500 MG TAB PO STA (17:25)
[2025-01-19] MEDS: MoRPHine SULFATE CR 15 MG TABCR PO STA (17:25)
[2025-01-19] MEDS: LIDOCAINE 5% 1 PATCH TD STA (18:27)
[2025-01-19] MEDS: dexAMETHasone 4 MG TAB PO ONE (18:28)
--- OUTSIDE RECORDS SUMMARY | 2025-01-19 18:31 | External Medical Summary | Summary of Care ---
Author Name Unknown Organization [facility] Address [address] [facility] [place] [address] Phone [phone] Care Team Providers Care Corporate Driver Name Role Phone Favian Castellon Primary Care Provider Reason for Visit * Reason Onset Date Comments Outpatient Testing 01/12/2025 PDL1/ MyGenva r Encounter Details Date Type Department Care Team (Late st Contact Info) Description 01/12/2025 Telephone Hematology/Oncology Treatment, [place] [address] [place] [address] Eleuterio Zapata MD [address] [place] [address] Outpatient Testing (PDL1/ MyGenvar) Allergies No known active allergiesdocumented as of this encounter (statuses as of 01/18/2025) Medications B-D Ultrafine III, 5MM, Pen MISC Use [...] E11.9 400 Each 3 01/19/20 22 Active Levothyroxine Sodium 100 MCG Oral TabletIndications: Acquired hypothyroidism TAKE 1 TABLET BY MOUTH ONCE DAILY 30 MINUTES BEFORE BREAKFAST OR OTHER MEDICATIONS 90 Tablet 3 02/24/20 24 Active Alendronate Sodium 70 MG Oral Tablet (Fosamax) Take 1 Tablet by mouth once a week. with 8 oz. water 30 minutes before first meal of the day. Remain upright for 30 min after taking tablet. 15 Tablet 5 02/26/20 24 Active Dexcom G7 Sensor USE TO TEST BLOOD SUGAR 3 Each 11 03/10/20 24 Active NovoLOG FlexPen 100 UNIT/ML Subcutaneous Solution Pen-injector (insulin aspart)Indications :Type 2 diabetes mellitus with hemoglobin A1c goal of less than 8.0% (HCC) Inject 5 units under the skin with breakfast, 15 units at lunch, and 23 units at supper plus CF of 7 units with lunch and dinner if blood sugar >220 max 60 units/day 60 mL 2 03/25/20 24 Active Acetaminophen 500 MG Oral Tablet (Tylenol)Indicatio ns:H/O laparoscopic adjustable gastric banding,Breast carcinoma, female, right (HCC),Obesity, Class I, BMI 30.0-34.9 (see actual BMI),Type 2 diabetes mellitus with hemoglobin A1c goal of less than 8.0% (HCC),Esophageal dysphagia,Malignan t neoplasm of overlapping sites of left female breast, unspecified estrogen receptor status (HCC),HTN, goal below 130/80,Problem with vascular access,Pre-operati ve examination take 2 tabs by mouth every 8 hours pain after surgery for 3 days 18 Tablet 07/13/20 24 Active Ondansetron HCl 4 MG Oral TabletIndications: H/O laparoscopic adjustable gastric banding,Breast carcinoma, female, right (HCC),Obesity, Class I, BMI 30.0-34.9 (see actual BMI),Type 2 diabetes mellitus with hemoglobin A1c goal of less than 8.0% (HCC),Esophageal dysphagia,Malignan t neoplasm of overlapping sites of left female breast, unspecified estrogen receptor status (HCC),HTN, goal below 130/80,Problem with vascular access,Pre-operati ve examination 1 tablet by mouth every 8 hours as needed for nausea after surgery. 30 Tablet 1 07/13/20 24 Active Vitamin D (Ergocalciferol) 1.25 MG (94084 UT) Oral Capsule (Drisdol) Take 1 capsule by mouth once a week 12 Capsule 08/19/20 24 Active Atenolol 25 MG Oral Tablet (Tenormin)Indicati ons:HTN, goal below 130/80 TAKE 1 TABLET BY MOUTH IN THE MORNING 90 Tablet 3 09/11/20 24 Active Mounjaro 12.5 MG/0.5ML Subcutaneous Solution Auto-injector (Tirzepatide) Inject 12.5 mg under the skin once a week. 6 mL 3 09/15/20 24 025 Active Losartan Potassium-HCTZ 100-25 MG Oral Tablet (Hyzaar)Indication s:HTN, goal below 130/80 Take 1 tablet by mouth once daily 90 Tablet 2 10/12/20 24 Active Atorvastatin Calcium 80 MG Oral Tablet (Lipitor) Take 1 tablet by mouth once daily 90 Tablet 2 10/12/20 24 Active Insulin Glargine Solostar 100 UNIT/ML Subcutaneous Solution Pen-injector (Lantus SoloStar) Inject 33 Units under the skin at bedtime. 30 mL 5 12/16/19 25 Active levETIRAcetam 500 MG Oral Tablet (Keppra) Take 1 Tablet by mouth in the morning and 1 Tablet before bedtime. 60 Tablet 5 2:28 PM EDT 01/01/20 25 025 Active Morphine Sulfate 15 MG Oral Tablet (Msir)Indications: Cancer related pain Take 1 Tablet by mouth every 4 hours as needed for Pain, Severe. 60 Tablet 01/13/20 25 Active Polyethylene Glycol 3350 17 GM Oral Packet (Miralax)Indicatio ns:Constipation due to pain medication Take 1 Packet by mouth in the morning. 14 Each 01/13/20 25 Active Sennosides 8.6 MG Oral Tablet (Senokot) Take 1 Tablet by mouth in the morning and 1 Tablet before bedtime. Do all this for 14 days. 28 Tablet 5 2:28 PM EDT 01/01/20 25 025 Omeprazole 20 MG Oral Capsule Delayed Release (PriLOSEC) Take 1 Capsule by mouth in the morning for 14 days. 14 Capsule 5 2:28 PM EDT 01/02/20 25 025 documented as of this encounter (statuses as of 01/18/2025) Active Problems Problem Noted Date Diagnosed Date Brain mass 12/31/2024 Breast cancer metastasized to brain, left 2024 Triple negative breast cancer 12/30/2024 Palliative care encounter 12/30/2024 Goals of care, counseling/discussion 12/30/2024 Esophageal dysphagia 05/20/2024 Obesity, Class I, BMI 30.0-34.9 (see actual BMI) 03/31/2024 Persistent insomnia 03/31/2024 Lumbar degenerative disc disease 03/31/2024 Breast carcinoma, female, right 09/01/2023 Depression with anxiety 10/31/2020 Non compliance w medication regimen 09/16/2019 High risk for fracture due to osteoporosis by DE XA scan 10/02/2018 Type 2 diabetes mellitus wit h hemoglobin A1c goal of less than 8.0% 08/12/2017 HTN, goal below 130/80 12/18/2015 Overview: Per HTN Protocol #27. Dyslipidemia 09/27/2009 Overview (09/27/2009): Per Lipid Taxonomy. History of adjustable gastric banding 12/26/2008 Acquired hypothyroidism 07/16/2006 documented as of this encounter (statuses as of 01/18/2025) Resolved Problems Problem Noted Date Diagnosed Date Resolved Date Epileptic seizure 12/30/2024 12/31/2024 Neoplasm related pain 12/30/20242024 Other constipation 12/30/2024 Nausea and vomiting 12/30/2024 01/01/20 25 History of morbid obesity 10/30/2023 Class 1 obesity due to exces s calories with serious comorbidity and body mass index (BMI) of 32.0 to 32.9 in adult 10/30/2023 03/31/2024 Encounter for antineoplastic chemotherapy 09/02/2023 03/31/2024 MDD (major depressive disord er), recurrent episode, moderate 10/25/2021 03/31/2024 MDD (major depressive disord er), recurrent episode, moderate 03/16/2019 09/16/2019 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 Mild LVH HTN, GOAL BELOW 140/80 06/01/201201/17 Overview: Per HTN Protocol #27. Dysfunction of eustachian tube 09/20/2011 10/31/2020 Acute suppurative otitis media 04/16/2011 07/10/2011 HTN, goal below 130/80 09/06/200906/04 DM type 2, not at goal 08/10/200903/13 Overview (08/10/2009): Per Diabetes Taxonomy. Type 2 diabetes mellitus wit h hemoglobin A1c goal of less than 7.0% 12/02/2006 08/10/2009 Overview (02/06/2016): Per Diabetes Taxonomy. ICD-10 update of inactive term ADVANCE DIRECTIVE INFORMATION 06/30/2006 10/31/2020 Overview (06/30/2006): Information gien to patient. Dyslipidemia, goal to be determined 12/20/2004 09/27/2009 Overview (09/27/2009): Per Lipid Taxonomy. HTN, goal below 140/90 12/20/200409/06 FAMILY HX-BREAST MALIG 10/01/200110/31 Other otosclerosis 1 documented as of this encounter (statuses as of 01/18/2025) Immunizations Name Administration Dates Next Due COVID-19 mRNA, LNP-s, No Pre serve, 2-Dose Series (Pfizer) 08/15/2021,01/23/2021,12/29/2020 Hepatitis B, 20+ yrs 06/29/2015,01/19/2015,01/19 Pneumococcal Conjugate Vacci ne, 20-valent ([id number]) 06/27/2022 Pneumococcal Polysaccharide PPV23 (Pneumovax) 02/10/2007 Seasonal Influenza Vac., MDV , IM, 0.5 mL (Fluzone) 07/01/2019,07/20/2015,08/13/2014,07/30,07/10/2011,07/05/2010,09/06/2009 ,08/20/2007 Seasonal Influenza, High Dos e, Trivalent, PF, IM (Fluzone HD) 06/29/2024 Seasonal Influenza, MDCK, Tr ivalent, PF, (Flucelvax) 07/18/2017 Seasonal Influenza, PF, 6 M & above, IM , (FluLaval or Fluzone) 10/13/2022,08/17/2020,09/14/2018 Seasonal Influenza, Quadriva lent Hd (Fluzone Hd) 09/03/2023 Seasonal Influenza, Quadriva lent, No Preserve, Mdck 07/01/2019 TD, Preservative Free 03/16/2019 TDAP, Age 7 and older, IM (Adacel) 06/03/2024, Zoster Vaccine Recombinant (Shingrix) 04/23/2022 ,10/25/2021 documented as of this encounter Social History Tobacco Use Types Packs/Day Years Used Date Smoking Tobacco: Never Smokeless Tobacco: Never Alcohol Use Standard Drinks/Week Comments Yes 0 (1 standard drink = 0.6 oz pur e alcohol) rare PHQ-2 Answer Date Recorded PHQ Adult Total Score 0 10/29/2022 Hunger Vital Sign Answer Date Recorded Within the past 12 months, y ou worried that your food would run out before you got the money to buy more. Patient declined Within the past 12 months, t he food you bought just didn't last and you didn't have money to get more. Patient declined Childcare Answer Date Recorded Do you feel overwhelmed with taking care of a child, family member or friend? No 07/12/2024 Does your family need help f inding childcare? (Household - for ages 0-17 years) Not on file 07/12/2024 Clothing Answer Date Recorded Have you been unable to get clothing when it was really needed? No 07/12/2024 Is your family able to get c lothes or diapers when needed? (Household - for ages 0-17 years) Not on file 07/12/2024 Personal Safety Answer Date Recorded Do you feel unsafe or have concerns for your saf ety? No 12/30/2024 Do you have concerns for you r family's safety? (Household - for ages 0-17 years) Not on file 12/30/2024 Utilities Answer Date Recorded Do you have trouble paying y our heating, water, or electric bill? No 12/30/2024 Is your family able to pay t he heat, water, or electric bill? (Household - for ages 0-17 years) Not on file 12/30/2024 Does your family have access to good internet? (Household - for ages 0-17 years) Not on file 12/30/2024 Employment Status Answer Date Recorded Are you unemployed or without regular income? No 07/12/2024 Does the household have a re lar source of income? (Household - for ages 0-17 years) Not on file 07/12/2024 Social Connections Answer Date Recorded How often do you feel lonely or isolated from th ose around you? Never 07/12/2024 Financial Resource Strain Answer Date R ecorded Do you have any trouble payi ng for your medications, or do you think you might in the future? No 07/12/2024 Does your family have troubl e paying for medicine? (Household - for ages 0-17 years) Not on file 07/12/2024 Transportation Needs Answer Date Record ed Do you have trouble getting a ride to medical visits or work? (Adult - for ages 18 years and over) Not on file 12/30/2024 Does your family have a hard time getting a ride to doctors visits? (Household - for ages 0-17 years) Not on file 12/30/2024 Has lack of transportation k ept you from medical appointments, meetings, work, or from getting things needed for daily living? Check all that apply. No 12/30/2024 Do you (or your family) have trouble finding or paying for a ride (transportation)? (Household - for ages 0-17 years) Not on file 12/30/2024 Housing Stability Answer Date Recorded Do you currently live in a s helter or have no steady place to sleep at night? No 12/30/2024 Do you think you are at risk of becoming homeless? (Adult - for ages 18 years and over) Not on file 12/30/2024 Does your family worry about paying for your home or becoming homeless? (Household - for ages 0-17 years) Not on file 0 12/30/2024 Are you homeless or worried that you might be in the future? No 12/30/2024 Are you (or your family) brianda eless or worried that you might be in the future? (Household - for ages 0-17 years) Not on file Food Insecurity Answer Date Recorded Do you need food for this week? No 07/12/2024 Are you able to get enough f ood for your family? (Household - for ages 0-17 years) Not on file 07/12/2024 Does your family need food t his week? (Household - for ages 0-17 years) Not on file 07/12/2024 Do you always have enough fo od for your family? (Household - for ages 0-17 years) Not on file 07/12/2024 Food Insecurity Answer Date Recorded Within the past 12 months, y ou worried that your food would run out before you got the money to buy more. Patient declined Within the past 12 months, t he food you bought just didn't last and you didn't have money to get more. Patient declined Do you need food for this week? No 12/30/2024 Comments No Sex and Gender Information Value Date Recorded Sex Assigned at Female 09/19/2020 8:17 AM EST Legal Sex Female 7:04 AM EST Gender Identity Female 09/19/2020 8:17 AM EST Sexual Orientation Straight 09/19/2020 8: 17 AM EST Occupation Industry Job Start Date Job End Date unemployed Not on file Not on file Not on file documented as of this encounter Functional Status * Are you deaf or do you have serious difficulty hearing? Answer Date of Assessment Author No 12/30/2024 3:10 AM Megan Daniels RN * Are you blind or do you have serious difficulty seeing, even when wearing glasses? Answer Date of Assessment Author No 12/30/2024 3:10 AM Megan Daniels RN * Do you have serious difficulty walking or climbing stairs? (5 years old or older) Answer Date of Assessment Author No 12/30/2024 3:10 AM Megan Daniels RN * Do you have difficulty dressing or bathing? (5 years old or older) Answer Date of Assessment Author No 12/30/2024 3:10 AM EDT Megan Bui RN * Because of a physical, mental, or emotional condition, do you have difficulty doing errands alone such as visiting a doctor’s office or shopping? (15 years old or older) Answer Date of Assessment Author No 12/30/2024 3:10 AM EDT Megan Bui RN documented as of this encounter Mental Status * Because of a physical, mental, or emotional condition, do you have serious difficulty concentrating, remembering, or making decisions? (5 years old or older) Answer Entry Date Author No 12/30/2024 3:10 AM EDT Megan Bui RN documented in this encounter Miscellaneous Notes * Telephone Encounter - Sabrina Robles RN - 01/18/2025 2:52 PM EDT TT sent to [facility] about biopsy. This is on their radar to schedule, radiologist is out untilnext week so patient will not be called until then to schedule. Clarified with Dr Zapata- biopsy can be providers choice, but would like it to be highest SUV that can be easily accessed. Left message for patient to return call to update her that [facility] will not be calling her until next week to schedule. Can offer to get her set up at [facility] for biopsy if she prefers. * Addendum Note - Sabrina Robles RN - 01/12/2025 3:19 PM EDTAddended by: SABRINA ROBLES on: 01/12/2025 03:19 PM Modules accepted: Orders * Telephone Encounter - Sabrina Robles RN - 01/12/2025 11:[address] Zapata saw patient today. Would like PDL1 added to previous biopsy. Order placed, message sent to pathology. Ordered repeat biopsy today- would like PDL1 and MyGenvar added to new biopsy as well. Will need towatch for this to be scheduled to add on testing. documented in this encounter Plan of Treatment Upcoming Encounters Date Type Department Care Team (Late st Contact Info) Description 01/19/2025 9:15 AM EDT Scheduled Telephone Palliative Medicine, [address] [place] [address] Oh, Nurse Palliative Medicine [address] [place] [address] 01/19/2025 12:30 PM EDT Telemedicine [facility] [address] [place] [address] Jose Mas PsyD [address] [place], [place] [id number] 01/27/2025 8:00 AM EDT Office Visit Family Practice [facility] [address] [place] [address] Favian Castellon, [address] [place] [address] 01/28/2025 1:28 PM EDT Hospital Encounter [facility], Operating Room [address] [address] Thom Palomino, DO [address] [place] [phone] 01/28/2025 1:28 PM EDT - 01/28/2025 1:54 PM EDT Surgery [facility], Operating Room [facility] [address] [facility] [place] [address] Thom Palomino DO [address] [place] [phone] INJECTION TRANSFORAMINAL EPIDURAL LUMBAR OR SACRAL 01/31/2025 2:30 PM EDT Imaging Radiology [address] [place] [address] 02/02/2025 10:00 AM EDT Office Visit Palliative Medicine [facility] [address] [place] [phone] Rakel Castillo MD [address] [place] [address] [place] [address] 02/02/2025 10:30 AM EDT Office Visit Hematology/Oncolo gy [facility] [address] [place] [phone] Eleuterio Zapata MD [address] [facility] [place] [address] 02/07/2025 10:45 AM EDT Office Visit Neurosurgery, [place] [address] [place] [address] Clinic, Brain Tumor Multidisciplinary [address] [place] [address] 03/23/2025 8:00 AM EDT Office Visit Pharmacy, [facility] [address] [place] [address] [facility] [address] [place] [address] 03/24/2025 8:40 AM EDT Office Visit Neurology [facility] [address] [place] [address] Tanya Mcpherson MD [address] [place] [address] Scheduled Procedures Name Priority Associated Diagnoses Date/Ti me INJECTION TRANSFORAMINAL EPIDURAL LUMBAR OR SACRAL Lumbar radiculopathy 01/28/2025 1:28 PM EDT COLONOSCOPY FLEXIBLE PROXIMAL DIAGNOSTIC Recall History of colon polyps Health Maintenance Due Date Last Done Comments Depression Monitoring 1969 COVID-19 Vaccine ( season) 2024 08/15/2021, 01/23/2021, 12/29/2020 TSH 01/21/2025 01/22/2024, 12/12, 06/26/2022, Additional history exists DXA Scan 12/18/2025 12/18/2022, 10/02/2018 Pap Smear Discontinued 09/19/2020, 10/2016, 09/25/2012, Additional history exists Zoster Vaccines Completed 04/23/2022, 10/25/2021 Colonoscopy Discontinued 08/23/2022, 08/13, 07/20/2019, Additional history exists Colorectal Cancer Screening Discontinued Diabetic Eye Exam Discontinued 11/13/2023, , 02/15/2021, Additional history exists Albumin/Creatinine Ratio Discontinued 024, 01/07/2023, 06/26/2022, Additional history exists Diabetic Foot Exam Discontinued 06/29/2024, 0 05/13/2023, 04/23/2022, Additional history exists Influenza Vaccine (FLU shot) Completed 06/29/2024, 09/03/2023, 10/13/2022, Additional history exists Cologuard Discontinued Fecal Occult Blood Test Discontinued Meningitis B Vaccine (Bexsero/Trumemba) Aged Out No longer eligible based on patient's age to complete this topic Sigmoidoscopy Discontinued documented as of this encounter Medical Devices Implanted Type Area Lace Paper Machine Operator Device Identifier Shelf Expiration Date Model / Serial / Lot Lens 24.0 [id number] - [id number] - [id number] Implanted:Qty : 1 on 04/30/2018 by Martin Donnelly MD at OR [facility] Left: Eye [employer] 01/10/2021 [id number]-97.0 / [id number] / [id number] Mx60 +23.0d Implanted:Qty : 1 on 05/12/2018 by Martin Donnelly MD at OR [facility] Right: Eye 07/12/2020 [id number] / [id number] / [id number] Duraclip 16mm Xlg Repostn - [id number] Implanted:Qty : 2 on 08/23/2022 by Sudhakar Martell MD at [facility] CONMED JESSICA 11/28/2023 [id number] / / Port Implant W/8f Poly Cath - [id number] Implanted:Qty : 1 on 09/18/2023 by Marty Quispe Jr., MD at OR [facility] BARD : PERIPHERAL VASCULAR [id number] 03/12/2025 [id number] / / [id number] documented as of this encounter Procedures Procedure Name Priority Date/Time Associated Diagnosis Comments ANATOMIC PATHOLOGY (BM/SURGICAL/CYTOLO GY) ADD ON REQUEST Routine 01/12/2025 3:17 PM EDT Breast carcinoma, female, right (HCC) Metastasis to bone (HCC) documented in this encounter Results * ANATOMIC PATHOLOGY (BM/SURGICAL/CYTOLOGY) ADD ON REQUEST (01/12/2025 3:17 PM EDT) 01/12/2025 3:17 PM EDT 01/12/2025 3:17 PM EDT Narrative LAB[facility]ORY [facility] - 01/18/2025 11:04 AM EDT Testing to be performed in house Eleuterio Zapata MD LAB BLOOD ORDERABLES Fin al Result LAB[facility]ATORY [facility] [address] [place] [address] documented in this encounter Visit Diagnoses Diagnosis Breast carcinoma, female, right (HCC)- Primary Metastasis to bone (HCC) Secondary malignant neoplasm of bone and bone marrow Lumbar radiculopathy Thoracic or lumbosacral neuritis or radiculitis, unspecified documented in this encounter Advance Directives * Full Code (Latest Code Status on File) Date Activated Date Inactivated Comments 12/30/2024 2:44 AM 12/31/2024 9:10 PM This order r eflects the patients wishes and were consensually agreed upon. Question Answer Comments Discussion of Advance Directives occurred with: Patient * Full Code Date Activated Date Inactivated Comments 08/04/2024 6:08 AM 08/04/2024 6:51 AM Question Answer Comments Discussion of Advance Direct kenzie occurred with: Not Discussed due to patient's condition * Full Code Date Activated Date Inactivated Comments 11/25/2023 9:19 AM 11/25/2023 5:03 PM This order r eflects the patients wishes and were consensually agreed upon. Question Answer Comments Discussion of Advance Direct kenzie occurred with: Not Discussed due to patient's condition * Full Code Date Activated Date Inactivated Comments 05/12/2018 7:34 AM 05/12/2018 1:41 PM This order r eflects the patients wishes and were consensually agreed upon. * Full Code Date Activated Date Inactivated Comments 04/30/2018 7:25 AM 04/30/2018 1:27 PM This order r eflects the patients wishes and were consensually agreed upon. Care Teams Corporate Driver Relationship Specialty Start Date End Date Favian Castellon DO [address] [place] [address] PCP - General Family Medicine 10/21/24 documented as of this encounter
--- OUTSIDE RECORDS SUMMARY | 2025-01-19 18:31 | External Medical Summary | Summary of Care ---
Author Name Unknown Organization [facility] Address [address] [facility] [address] Phone [phone] Care Team Providers Care Tester Sound Name Role Phone Favian Castellon Primary Care Provider Reason for Visit * Reason Onset Date Comments Encounter Created in Error 01/12/2025 Encounter Details Date Type Department Care Team (Late st Contact Info) Description 01/12/2025 Telephone Hematology/Oncology Treatment, [place] [address] [place] [address] Eleuterio Zapata MD 200 [place] [address] Encounter Created in Error Allergies No known active allergiesdocumented as of this encounter (statuses as of 01/12/2025) Medications B-D Ultrafine III, 5MM, Pen MISC [...] USE TO TEST BLOOD SUGAR 3 Each 03/10/20 24 Active NovoLOG FlexPen 100 UNIT/ML [...] 24 Active Vitamin D (Ergocalciferol) 1.25 MG (72815 UT) Oral Capsule (Drisdol) Take 1 capsule [...] and 1 Tablet before bedtime. 60 Tablet 12/31/2024 2:28 PM EDT 01/01/20 25 025 Active Sennosides 8.6 MG Oral Tablet (Senokot) Take 1 Tablet by mouth in the morning and 1 Tablet before bedtime. Do all this for 14 days. 28 Tablet 12/31/2024 2:28 PM EDT 01/01/20 25 025 Active Omeprazole 20 MG Oral Capsule Delayed Release (PriLOSEC) Take 1 Capsule by mouth in the morning for 14 days. 14 Capsule 12/31/2024 2:28 PM EDT 01/02/20 25 025 Active Morphine Sulfate 15 MG Oral Tablet (Msir)Indications: Cancer related pain Take 1 Tablet by mouth every 4 hours as needed for Pain, Severe. 60 Tablet 01/13/20 25 Active Polyethylene Glycol 3350 17 GM Oral Packet (Miralax)Indicatio ns:Constipation due to pain medication Take 1 Packet by mouth in the morning. 14 Each 01/13/20 25 Active documented as of this encounter (statuses as of 01/12/2025) Active Problems Problem Noted Date Diagnosed Date [...] as of this encounter (statuses as of 01/12/2025) Resolved Problems Problem Noted Date Diagnosed Date [...] as of this encounter (statuses as of 01/12/2025) Immunizations Name Administration Dates Next Due COVID-19 mRNA, LNP-s, No Pre serve, 2-Dose Series (Incuron) 08/15/2021,01/23/2021,12/29/2020 Hepatitis B, 20+ yrs 06/29/2015,01/19/2015,01/19 Pneumococcal Conjugate Vacci ne, 20-valent ([id number]) 06/27/2022 Pneumococcal Polysaccharide PPV23 (Pneumovax) 02/10/2007 Seasonal [...] Megan Bui RN documented in this encounter Plan of Treatment Upcoming Encounters Date Type Department Care Team (Late st Contact Info) Description 01/19/2025 9:15 AM EDT Scheduled Telephone Palliative Medicine, [address] 5th [place] [address] [place], Nurse Palliative Medicine [address] [address] 01/19/2025 12:30 PM EDT Telemedicine Psychology [facility] [address] [place] [address] Jose Mas PsyD [address] [place] [address] 01/27/2025 8:00 AM EDT Office Visit Family Practice [facility] [address] [place] [address] Favian Castellon, DO [address] [place] [address] 01/28/2025 1:28 PM EDT Hospital Encounter [facility], Operating Room [facility] [address] [place] [phone] Thom Palomino, DO [address] [place] [phone] 01/28/2025 1:28 PM EDT - 01/28/2025 1:54 PM EDT Surgery [place] [facility], Operating Room [facility] [address] [place] [address] Thom Palomino DO [address] [place] [phone] INJECTION TRANSFORAMINAL EPIDURAL LUMBAR OR SACRAL 01/31/2025 2:30 PM EDT Imaging Radiology [address] [place] [address] 02/02/2025 10:00 AM EDT Office Visit Palliative Medicine [facility] [phone] Rakel Castillo MD [address] [place] [address] [place], [place] [id number] 02/02/2025 10:30 AM EDT Office Visit Hematology/Oncolo gy [facility] 200 [facility] [place] [address] Eleuterio Zapata MD 200 [facility] [place] [address] 02/07/2025 10:45 AM EDT Office Visit Neurosurgery, [place] [address] [facility] [address] Clinic, Brain Tumor Multidisciplinary [address] [place] [address] 03/23/2025 8:00 AM EDT Office Visit Pharmacy, [facility] 132 [address] [facility] [place] [address] [facility] [place] [address] [place] [address] 03/24/2025 8:40 AM EDT Office Visit Neurology [facility] 200 [facility] [place] [address] Tanya Mcpherson MD 200 [facility] [place] [address] Scheduled Procedures Name Priority Associated Diagnoses Date/Ti [...] 12/18/2025 12/18/2022, 10/02/2018 Pap Smear Discontinued 09/19/2020, 0610/2016, 09/25/2012, Additional [...] this encounter Medical Devices Implanted Type Area Mask Inspector Device Identifier Shelf Expiration Date Model / Serial / Lot Lens 24.0 Mx60e - [id number] - [id number] Implanted:Qty : 1 on 04/30/2018 by Martin Donnelly MD at OR [facility] Left: Eye [employer]CH [employer] LOMB 01/10/2021 [id number]-73.0 / [id number] / [id number] Mx60 +23.0d Implanted:Qty : 1 on 05/12/2018 by Martin Donnelly MD at OR [facility] Right: Eye 07/12/2020 [id number] / [id number] / [id number] Duraclip 16mm Xlg Repostn - [id number] Implanted:Qty : 2 on 08/23/2022 by Sudhakar Martell MD at [facility] CONMED JESSICA 11/28/2023 [id number] / / Port Implant W/8f Poly Cath - [id number] Implanted:Qty : 1 on 09/18/2023 by Marty Quispe Jr., MD at [facility] BARD : PERIPHERAL VASCULAR [id number] 03/12/2025 [id number] / / [id number] documented as of this encounter Advance Directives * Full Code [...] and were consensually agreed upon. Care Teams Tester Sound Relationship Specialty Start Date End Date Favian Castellon DO 132 [place] [address] PCP - General Family Medicine 10/21/24 documented as of this encounter
--- OUTSIDE RECORDS SUMMARY | 2025-01-19 18:31 | External Medical Summary | Summary of Care ---
Author Name Unknown Organization [facility] Address [address] [facility] [place] [address] Phone [phone] Care Team Providers Care Book Cutter Name Role Phone Favian Castellon Primary Care Provider Reason for Visit * Reason Onset Date Comments Outpatient Testing 01/12/2025 PDL1/ MyGenva r Encounter Details Date Type Department Care Team (Late st Contact Info) Description 01/12/2025 Telephone Hematology/Oncology Treatment, [place] [address] [place] [address] Eleuterio Zapata MD 200 [place] [address] Outpatient Testing (PDL1/ MyGenvar) Allergies No known [...] 24 Active Vitamin D (Ergocalciferol) 1.25 MG (78488 UT) Oral Capsule (Drisdol) Take 1 capsule [...] yrs 06/29/2015,01/19/2015,01/19 Pneumococcal Conjugate Vacci ne, 20-valent ([id number]) 06/27/2022 Pneumococcal Polysaccharide PPV23 (Pneumovax) 02/10/2007 Seasonal [...] to return call to update her that [facility] will not be calling her until next week to schedule. Can offer to get her set up at [facility] for biopsy if she prefers. * Addendum [...] 9:15 AM EDT Scheduled Telephone Palliative Medicine, [address] 5th [place] [address] [place], Nurse Palliative Medicine [address] [place] [address] 01/19/2025 12:30 PM EDT Telemedicine Psychology [facility] [address] [place] [address] Jose Mas PsyD [address] [place], [place] [id number] 01/27/2025 8:00 AM EDT Office Visit Family Practice [facility] [address] [place] [address] Favian Castellon, [address] [place] [address] 01/28/2025 1:28 PM EDT Hospital Encounter [place] [facility], Operating Room [address] [phone] Thom Palomino, DO [address] [place] [phone] 01/28/2025 1:28 PM EDT - 01/28/2025 1:54 PM EDT Surgery [place] [facility], Operating Room [facility] [address] [place] [address] Thom Palomino DO [address] [place] [phone] INJECTION TRANSFORAMINAL EPIDURAL LUMBAR OR SACRAL 01/31/2025 2:30 PM EDT Imaging Radiology [address] [place] [address] 02/02/2025 10:00 AM EDT Office Visit Palliative Medicine [facility] [address] [place] [phone] Rakel Castillo MD [address] [place] [address] [place] [address] 02/02/2025 10:30 AM EDT Office Visit Hematology/Oncolo gy [facility] [address] [place] [address] Eleuterio Zapata MD [address] [facility] [place] [address] 02/07/2025 10:45 AM EDT Office Visit Neurosurgery, [place] [address] [place] [address] Clinic, Brain Tumor Multidisciplinary [address] [place] [address] 03/23/2025 8:00 AM EDT Office Visit Pharmacy, [facility] [address] [place] [address] [facility] [address] [place] [address] 03/24/2025 8:40 AM EDT Office Visit Neurology [facility] [address] [place] [address] Tanya Mcpherson MD [address] [place] [address] Scheduled Procedures Name Priority Associated Diagnoses Date/Ti [...] this encounter Medical Devices Implanted Type Area Assistant Sales Center Manager Device Identifier Shelf Expiration Date Model / Serial / Lot Lens 24.0 Mx60e - [id number] - [id number] Implanted:Qty : 1 on 04/30/2018 by Martin Donnelly MD at OR [facility] Left: Eye BAUSCH [employer] LOMB 01/10/2021 [id number]-43.0 / [id number] / [id number] Mx60 +23.0d Implanted:Qty : 1 on 05/12/2018 by Martin Donnelly MD at OR [facility] Right: Eye 07/12/2020 QU8884.0 / [id number] / [id number] Duraclip 16mm Xlg Repostn - [id number] Implanted:Qty : 2 on 08/23/2022 by Sudhakar Martell MD at [facility] [employer] JESSICA 11/28/2023 [id number] / / Port Implant W/8f Poly Cath - [id number] Implanted:Qty : 1 on 09/18/2023 by Marty Quispe Jr., MD at OR [facility] BARD : PERIPHERAL VASCULAR [id number] 03/12/2025 [id number] / / [id number] documented as of this encounter Procedures Procedure Name Priority Date/Time Associated Diagnosis Comments ANATOMIC PATHOLOGY (BM/SURGICAL/CYTOLO GY) ADD ON REQUEST Routine 01/12/2025 3:17 PM EDT Breast carcinoma, female, right (HCC) Metastasis to bone (HCC) documented in this encounter Results * ANATOMIC PATHOLOGY (BM/SURGICAL/CYTOLOGY) ADD ON REQUEST (01/12/2025 3:17 PM EDT) 01/12/2025 3:17 PM EDT 01/12/2025 3:17 PM EDT Narrative [facility] - 01/18/2025 11:04 AM EDT Testing to be performed in house Eleuterio Zapata MD LAB BLOOD ORDERABLES Fin al Result [facility] 100 [place] [address] documented in this encounter Visit [...] were consensually agreed upon. Care Teams Book Cutter Relationship Specialty Start Date End Date Favian Castellon DO 132 [place] [address] PCP - General Family Medicine 10/21/24 documented as of this encounter
--- OUTSIDE RECORDS SUMMARY | 2025-01-19 18:31 | External Medical Summary | Summary of Care ---
Author Name Unknown Organization [facility] Address [address] [facility] [address] Phone [phone] Care Team Providers Care Log Sawyer Name Role Phone Favian Castellon Primary Care Provider Reason for Visit * Reason Onset Date Comments Precert Approved 01/12/2025 Morphine Encounter Details Date Type Department Care Team (Late st Contact Info) Description 01/12/2025 Telephone Palliative Medicine, [facility] 400 [facility] 5th [place] [address] Rakel Castillo MD 400 [place] [address] Precert Approved (Morphine) Allergies No known active allergiesdocumented as of this encounter (statuses as of 01/14/2025) Medications B-D Ultrafine III, 5MM, Pen MISC [...] 24 Active Vitamin D (Ergocalciferol) 1.25 MG (07477 UT) Oral Capsule (Drisdol) Take 1 capsule [...] as of this encounter (statuses as of 01/14/2025) Active Problems Problem Noted Date Diagnosed Date [...] as of this encounter (statuses as of 01/14/2025) Resolved Problems Problem Noted Date Diagnosed Date [...] as of this encounter (statuses as of 01/14/2025) Immunizations Name Administration Dates Next Due COVID-19 mRNA, LNP-s, No Pre serve, 2-Dose Series (Pfizer) 08/15/2021,01/23/2021,12/29/2020 Hepatitis B, 20+ yrs 06/29/2015,01/19/2015,01/19 Pneumococcal Conjugate Vacci ne, 20-valent (Gcvtqvt69) 06/27/2022 Pneumococcal Polysaccharide PPV23 (Pneumovax) 02/10/2007 Seasonal [...] 12/30/2024 3:10 AM Megan Daniels RN * Because of a physical, mental, or emotional condition, do you have difficulty doing errands alone such as visiting a doctor’s office or shopping? (15 years old or older) Answer Date of Assessment Author No 12/30/2024 3:10 AM Megan Daniels RN documented as of this encounter Mental Status * Because of a physical, mental, or emotional condition, do you have serious difficulty concentrating, remembering, or making decisions? (5 years old or older) Answer Entry Date Author No 12/30/2024 3:10 AM Megan Daniels RN documented in this encounter Miscellaneous Notes * Telephone Encounter - Roseann Sadler LPN - 01/12/2025 3:51 PM EDT PRIOR AUTHORIZATION Medication Name and Strength: Morphine Sulfate 15 MG Oral Tablet (Msir) Qty & Days Supply: #60 tablets/10 day supply ICD 10 Code(s): Cancer related pain [G89.3] Is there medical record documentation that the prescriber or the prescriber's delegate conducted a search of the [place] Prescription Drug Monitoring Program (PDMP) for the beneficiary's controlled substance prescription history? YES Therapeutic failure, intolerance or contraindication to alternative medications? (If yes, please list the medications): Yes, Oxycodone 5mg Is there medical record documentation of a diagnosis of active cancer? YES Is there medical record documentation of a diagnosis of sickle cell disease with crisis? NO Is there medical record documentation that the member is receiving hospice services? NO Is there medical record documentation that the member is receiving palliative care? 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 Going through brain radiation at [facility], has had 3 of 10 sessions. Stopped dexamethasone last Friday.She says the first tx was bad but the rest have been OK. Palliative symptoms: Pain: Located at: Everywhere, mostly lower back, upper back Currently taking: Oxycodone 5mg before bed - helps her sleep fora bout 3h. One day she took Oxycodone twice and felt very groggy. : ASSESSMENT/PLAN: Aixa Cruz is a/an 69 year old female referred for consultation to Palliative Medicine with theprimary diagnosis of: L breast CA, initially underwent chemo and bilateral mastectomy, then found to have brain metastases in December leading to hospital stay [place] [facility]. Currently getting XRT at [facility]. Cancer related pain Opioid induced constipation R sided weakness Insomnia, likely with component of anxiety Chronic back pain, scheduled for injection on 01/28 Goals of care - improve symptoms Recommendations: At this time she is OK with continuing tx, wants to fight this as much as possible. For pain, will stop Oxycodone and change to Morphine IR 15mg q4h PRN to see if she tolerates this better I have reviewed the patient’s controlled substance dispensing history in the Prescription Drug Monitoring Program in compliance with the [facility] regulations before prescribing a controlled substance. documented in this encounter Plan of Treatment Upcoming Encounters Date Type Department Care Team (Late st Contact Info) Description 01/19/2025 9:15 AM EDT Scheduled Telephone Palliative Medicine, [address]th [place] [address] [place], Nurse Palliative Medicine [address] [address] 01/19/2025 12:30 PM EDT Telemedicine Psychology [place] [address] [place] [address] Jose Mas PsyD [address] [place] [address] 01/27/2025 8:00 AM EDT Office Visit Family [facility] [place] [address] Favian Castellon, [address] [place] [address] 01/28/2025 1:28 PM EDT Hospital Encounter [facility], Operating Room [facility] [address] [place], [place] [address] [address] Thom Palomino, DO [address] [place] [phone] 01/28/2025 1:28 PM EDT - 01/28/2025 1:54 PM EDT Surgery [facility], Operating Room [facility] [address] [place] [address] [place] [phone] Thom Palomino, DO [address] [place] [address] INJECTION TRANSFORAMINAL EPIDURAL LUMBAR OR SACRAL 01/31/2025 2:30 PM EDT Imaging Radiology [address] [place] [address] 02/02/2025 10:00 AM EDT Office Visit Palliative Medicine [facility] [place] [facility] [address] Rakel Castillo MD 400 [place] [address] 02/02/2025 10:30 AM EDT Office Visit Hematology/Oncolo gy [facility] [place] 200 [facility] [place] [address] Eleuterio Zapata MD 200 [facility] [place] [address] 02/07/2025 10:45 AM EDT Office Visit Neurosurgery, [place] [address] [place] [address] Clinic, Brain Tumor Multidisciplinary [facility] [place] [place] [address] 03/23/2025 8:00 AM EDT Office Visit Pharmacy, [place] [facility] 132 [facility] [place] [address] [facility] [address] [place] [address] 03/24/2025 8:40 AM EDT Office Visit Neurology [facility] 200 [facility] [place] [address] Tanya Mcpherson MD [address] [place] [address] Scheduled Procedures Name Priority Associated Diagnoses Date/Ti [...] 12/18/2025 12/18/2022, 10/02/2018 Pap Smear Discontinued 09/19/2020, 06/10/2016, 09/25/2012, Additional history exists Zoster Vaccines Completed [...] this encounter Medical Devices Implanted Type Area Produce Associate Device Identifier Shelf Expiration Date Model / Serial / Lot Lens 24.0 Mx60e - [id number] - [id number] Implanted:Qty : 1 on 04/30/2018 by Martin Donnelly MD at OR [facility] Left: Eye BAUSCH [employer] LOMB 01/10/2021 [id number]-87.0 / [id number] / [id number] Mx60 +23.0d Implanted:Qty : 1 on 05/12/2018 by Martin Donnelly MD at OR [facility] Right: Eye 07/12/2020 [id number] / [id number] / [id number] Duraclip 16mm Xlg Repostn - [id number] Implanted:Qty : 2 on 08/23/2022 by Sudhakar Martell MD at ENDOSCOPY [facility] [employer]ESS[employer] 11/28/2023 [id number] / / Port Implant W/8f Poly Cath - [id number] Implanted:Qty : 1 on 09/18/2023 by Marty Quispe Jr., MD at OR [facility] BARD : PERIPHERAL VASCULAR [id number] 03/12/2025 [id number] / / [id number] documented as of this encounter Advance Directives [...] and were consensually agreed upon. Care Teams Log Sawyer Relationship Specialty Start Date End Date Favian Castellon DO [address] [place] [address] PCP - General Family Medicine 10/21/24 documented as of this encounter
--- OUTSIDE RECORDS SUMMARY | 2025-01-19 18:32 | External Medical Summary | Summary of Care ---
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 Equipment Installer Name Role Phone Favian Castellon Primary Care Provider Reason for Visit * Reason Comments Follow Up Scan Review Encounter Details Date Type Department Care Team (Late st Contact Info) Description 01/12/2025 2:00 PM EDT Office Visit Hematology/Oncology [facility] [address] [facility] [place] [id number] Eleuterio Zapata MD [address] [facility] [place] [address] Triple negative breast cancer (HCC)* Allergies No known active allergiesdocumented as of this encounter (statuses as of 01/12/2025) Medications B-D Ultrafine III, 5MM, Pen MISC Use daily with insulin pen 1 Box Dosing Unit 11 016 Active aspirin 81 MG chewable tabletIndications :DM type 2, 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 with food. 100 Tab 5 016 Active Insulin Pen Needle 31G X 5 MM Use with Lantus and Novolog 4 times a day. Can substitute for preferred brand Dx E11.9 400 Each 3 022 Active Levothyroxine Sodium 100 MCG Oral TabletIndications :Acquired hypothyroidism TAKE 1 TABLET BY MOUTH ONCE DAILY 30 MINUTES BEFORE BREAKFAST OR OTHER MEDICATIONS 90 Tablet 3 Active Alendronate Sodium 70 MG Oral Tablet (Fosamax) Take 1 Tablet by mouth once a week. with 8 oz. water 30 minutes before first meal of the day. Remain upright for 30 min after taking tablet. 15 Tablet 5 Active Dexcom G7 Sensor USE TO TEST BLOOD SUGAR 3 Each 11 Active NovoLOG FlexPen 100 UNIT/ML Subcutaneous Solution Pen-injector (insulin aspart)Indication s:Type 2 diabetes mellitus with hemoglobin A1c goal of less than 8.0% (HCC) Inject 5 units under the skin with breakfast, 15 units at lunch, and 23 units at supper plus CF of 7 units with lunch and dinner if blood sugar >220 max 60 units/day 60 mL 2 Active Acetaminophen 500 MG Oral Tablet (Tylenol)Indicati ons:H/O laparoscopic adjustable gastric banding,Breast carcinoma, female, right (HCC),Obesity, Class I, BMI 30.0-34.9 (see actual BMI),Type 2 diabetes mellitus with hemoglobin A1c goal of less than 8.0% (HCC),Esophageal dysphagia,Maligna nt neoplasm of overlapping sites of left female breast, unspecified estrogen receptor status (HCC),HTN, goal below 130/80,Problem with vascular access,Pre-operat amilcar examination take 2 tabs by mouth every 8 hours pain after surgery for 3 days 18 Tablet Active Ondansetron HCl 4 MG Oral TabletIndications :H/O laparoscopic adjustable gastric banding,Breast carcinoma, female, right (HCC),Obesity, Class I, BMI 30.0-34.9 (see actual BMI),Type 2 diabetes mellitus with hemoglobin A1c goal of less than 8.0% (HCC),Esophageal dysphagia,Maligna nt neoplasm of overlapping sites of left female breast, unspecified estrogen receptor status (HCC),HTN, goal below 130/80,Problem with vascular access,Pre-operat amilcar examination 1 tablet by mouth every 8 hours as needed for nausea after surgery. 30 Tablet 1 024 Active Vitamin D (Ergocalciferol) 1.25 MG (62230 UT) Oral Capsule (Drisdol) Take 1 capsule by mouth once a week 12 Capsule Active Atenolol 25 MG Oral Tablet (Tenormin)Indicat ions:HTN, goal below 130/80 TAKE 1 TABLET BY MOUTH IN THE MORNING 90 Tablet 3 Active Mounjaro 12.5 MG/0.5ML Subcutaneous Solution Auto-injector (Tirzepatide) Inject 12.5 mg under the skin once a week. 6 mL 3 024 2024 Active Losartan Potassium-HCTZ 100-25 MG Oral Tablet (Hyzaar)Indicatio ns:HTN, goal below 130/80 Take 1 tablet by mouth once daily 90 Tablet 2 Active Atorvastatin Calcium 80 MG Oral Tablet (Lipitor) Take 1 tablet by mouth once daily 90 Tablet 2 Active Insulin Glargine Solostar 100 UNIT/ML Subcutaneous Solution Pen-injector (Lantus SoloStar) Inject 33 Units under the skin at bedtime. 30 mL 5 Active levETIRAcetam 500 MG Oral Tablet (Keppra) Take 1 Tablet by mouth in the morning and 1 Tablet before bedtime. 60 Tablet 01/01/20 25 2:28 PM EDT 025 2024 Active Sennosides 8.6 MG Oral Tablet (Senokot) Take 1 Tablet by mouth in the morning and 1 Tablet before bedtime. Do all this for 14 days. 28 Tablet 01/01/20 25 2:28 PM EDT 025 2024 Active Omeprazole 20 MG Oral Capsule Delayed Release (PriLOSEC) Take 1 Capsule by mouth in the morning for 14 days. 14 Capsule 01/01/20 25 2:28 PM EDT 025 2024 Active dexAMETHasone 4 MG Oral Tablet (Decadron) Take 1 Tablet by mouth in the morning and 1 Tablet at noon and 1 Tablet before bedtime. Do all this for 20 days. 60 Tablet 025 2024 Discontinued oxyCODONE HCl 5 MG Oral Tablet (Oxy IR)Indications:Br east carcinoma, female, right (HCC),Metastasis to bone (HCC) Take 1 Tablet by mouth every 4 hours as needed for Pain, Breakthrough or Pain, Severe. 60 Tablet 025 2024 Discontinued documented as of this encounter (statuses [...] constipation 12/30/2024 Nausea and vomiting 12/30/2024 01/01/20 History of morbid obesity 10/30/2023 Class 1 [...] mRNA, LNP-s, No Pre serve, 2-Dose Series (Pins) 08/15/2021,01/23/2021,12/29/2020 Hepatitis B, 20+ yrs 06/29/2015,01/19/2015,01/19 Pneumococcal Conjugate Vacci ne, 20-valent ([id number]) 06/27/2022 Pneumococcal Polysaccharide PPV23 (Pneumovax) 02/10/2007 Seasonal [...] Sign Reading Time Taken Comments Blood Pressure 142/80 01/12/2025 11:01 AM EDT Pulse 88 01/12/2025 11:01 AM EDT Temperature 36.1 °C (97 °F) 01/12/2025 11:01 AM EDT Respiratory Rate - - Oxygen Saturation 97% 01/12/2025 11:01 AM EDT Inhaled Oxygen Concentration - - Weight 64.9 kg (143 lb 1.6 oz) 01/12/2025 11:01 AM EDT Height - - Body Mass Index 27.95 12/30/2024 3:10 AM EDT documented in this encounter Functional Status * Are you deaf or do you have serious difficulty hearing? Answer Date of Assessment Author No 12/30/2024 3:10 AM EDT Megan Bui RN * Are you blind or do you have serious difficulty seeing, even when wearing glasses? Answer Date of Assessment Author No 12/30/2024 3:10 AM EDT Megan Bui RN * Do you have serious difficulty walking or climbing stairs? (5 years old or older) Answer Date of Assessment Author No 12/30/2024 3:10 AM EDT Megan Bui RN * Do you have difficulty dressing [...] Megan Bui RN documented in this encounter Progress Notes * Eleuterio Zapata MD - 01/12/2025 2:09 PM EDT Outpatient Consult Note Data Source: Patient, Epic record. Data Source: Patient, Epic record. 01/12/2025 2:09 PM Aixa Cruz [id number] 69 year old Patient Encounter: HEMATOLOGY/ONCOLOGY [facility] Cancer Diagnosis: Left breast cancer, pathology consistent with complex cystic lesion with the small detached fragments of adenocarcinoma, ER/UT and HER2 Musa negative. She had clinically stage T2 N0 disease. 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 Patient has pT2 pN1 disease. Current Treatment: Observation Previous Treatment: Status post bilateral mastectomy on 08/18/2023 Completed adjuvant chemotherapy including dose dense AC followed by paclitaxel. Completed 4 cycles of AC and weekly Taxol.(09/25/2023 to 02/12/2024) Completed radiation therapy on 04/28/2024 Oncologic History : 69-year-old female with a past medical history significant [...] with few small detached fragments of adenocarcinoma, ER/UT and HER2 Musa negative. Final Diagnosis A. Left breast, 2:00 complex cystic lesion, core biopsy: Cores of breast tissue with few small detached fragments of adenocarcinoma Estrogen Receptor (ER) protein expression is NEGATIVE Progesterone Receptor (UT) protein expression is NEGATIVE HER2 oncoprotein expression [...] breast cancer at the age of 74. Patient underwent bilateral mastectomy on 08/18/2023. The left side pathology is consistent with invasive ductal carcinoma with 2 positive lymph nodes. The largest tumor size is 15 mm and grade 3. FINAL DIAGNOSIS A. Breast, right, mastectomy: - Intraductal papilloma with usual ductal hyperplasia. Fibrocystic change. - One benign-appearing incidental lymph node. B. Gantt lymph node #1, left axilla, biopsy: - Metastatic carcinoma involving 1 lymph node (/). - Size of metastasis: 20 mm in greatest dimension. - No extranodal invasion identified. C. Gantt lymph node #2, left axilla, biopsy: - Metastatic carcinoma involving 1 lymph node (1/). - Size of metastasis: 1.2 mm in greatest dimension. - No extranodal invasion identified. D. Gantt lymph node #3, left axilla, biopsy: - Negative for metastatic carcinoma (0/1). E. Breast, left, mastectomy: - Invasive ductal carcinoma. - See synoptic report. F. Gantt lymph node #4, left axilla, biopsy: - Negative for metastatic carcinoma (0/1) TUMOR Histologic Type: Invasive carcinoma of no special type (ductal) Glandular (Acinar) / Tubular Differentiation: Score 3 Nuclear Pleomorphism: Score 3 Mitotic Rate: Score 2 Overall Grade: Grade 3 (scores of 8 or 9) Tumor Size: Greatest dimension of largest invasive focus (Millimeters) - 50 mm Ductal Carcinoma In Situ (DCIS): Present Lymphatic and / or Vascular Invasion: Not identified Treatment Effect in the Breast: No known presurgical therapy MARGINS Margin Status for Invasive Carcinoma: All margins negative for invasive carcinoma Distance from Invasive Carcinoma to Closest Margin: 10 mm Closest Margin(s) to Invasive Carcinoma: Deep margin. Margin Status for DCIS: All margins negative for DCIS Distance from DCIS to Closest Margin: Greater than - 20 mm Closest Margin(s) to DCIS: Deep margin pT Category: pT2 pN Category: pN1a Immunotherapy Markers Tumor Mutational [place] (TMB): TMB Unit [place] 3.79 m/MB Low Microsatellite Instability Status (MSI): MSI Status 1.32 Stable Result Detail Homologous Recombination Deficiency/Repair (HRD/HRR): NEGATIVE for pathogenic/likely pathogenic mutations in the common homologous recombination repair genes on this panel. Homologous recombination repair genes analyzed: LAURIE, ATR, BARD1, BRCA1, BRCA2, BRIP1, CDK12, CHEK1,CHEK2, FANCA, FANCC, FANCD2, FANCE, FANCF, FANCL, HDAC2, MRE11, NBN, PALB2, RAD50, RAD51, RAD51B, RAD51C, RAD51D, RAD54L. Pathogenic/likely pathogenic mutations in other homologous recombination repair genes on this panel, if detected, are reported below. Tier I: Strong Significance Variants Single Nucleotide Variants and Insertions/Deletions Gene Variant Tier Amino Acid Change Nucleotide Change Consequence Allele Frequency Sequencing Depth PIK3CA P9444O Tier 1: Strong significance [id number]: [id number] Missense Variant 39.1% 1999 Tier II: Potential Significance Variants Single Nucleotide Variants and Insertions/Deletions Gene Variant Tier Amino Acid Change Nucleotide Change Consequence Allele Frequency Sequencing Depth PIK3CA P539R Tier 2: Potential significance [id number]: c.[id number]>G Missense Variant 36.1% 1996 Interval History: She was last seen on 12/21/2024 with complaint of generalized weakness, fatigue and subcutaneous nodules. She had a PET scan done on 12/29/2024 which unfortunately shows wide limit estimated disease including brain, lung, liver, bone, hiro and subcutaneous metastasis. She subsequently [facility] with episode of seizure and had further workup done including MRI of the brain which revealed multiple brain metastasis the bilateral cerebral and cerebellar hemisphere, largest metastasis in the left parieto-occipital junction. She was evaluated by the neurosurgical team and Neurologyteam. He was treated with Keppra. Because of the brain metastasis she was evaluated with the Radiation Oncology and currently she completed 3/10 fraction of radiation therapy. She is complaining of generalized weakness, fatigue and back pain. LABS/IMAGING: Results for orders placed or performed during the hospital encounter of 12/30/24 CBC Result Value Ref Range WBC 11.05 (H) 4.00 - 10.80 K/uL RBC 4.28 3.85 - 5.15 M/uL HGB 11.8 (L) 12.0 - 15.3 g/dL HCT 37.4 36.0 - 45.2 % MCV 87.4 81.5 - 97.5 fL MCH 27.6 27.0 - 34.0 pg MCHC 31.6 32.0 - 36.0 g/dL RDW 14.3 11.5 - 15.5 % PLT 299 140 - 400 K/uL MPV 9.4 6.6 - 11.1 fL nRBCs 0 <=0 /100 WBCs LACTATE Result Value Ref Range Lactate 1.1 0.4 - 2.0 mmol/L BASIC METABOLIC PANEL Result Value Ref Range BUN 15 6 - 20 mg/dL CREATININE 0.6 0.5 - 1.0 mg/dL EGFR >90 >=60 mL/min SODIUM 133 (L) 135 - 146 mmol/L POTASSIUM 4.6 3.5 - 5.1 mmol/L CHLORIDE 99 98 - 107 mmol/L CO2 21 (L) 22 - 32 mmol/L ANION GAP 13 7 - 15 mmol/L GLUCOSE 180 (H) 70 - 120 mg/dL CALCIUM 9.3 8.4 - 10.2 mg/dL MAGNESIUM Result Value Ref Range Magnesium 2.1 1.5 - 2.6 mg/dL PHOSPHORUS Result Value Ref Range Phosphorus 3.4 2.5 - 4.8 mg/dL HEPATIC FUNCTION PANEL Result Value Ref Range Albumin 3.8 3.8 - 5.0 g/dL AST 68 (H) 10 - 35 U/L Alkaline Phosphatase 204 (H) 35 - 130 U/L ALT 64 (H) 10 - 35 U/L Bilirubin, Total 0.2 <=1.2 mg/dL Bilirubin, Direct 0.1 0.0 - 0.3 mg/dL Protein 7.3 6.0 - 8.3 g/dL APTT Result Value Ref Range aPTT 25 21 - 38 seconds PT INR Result Value Ref Range Prothrombin Time 12.7 11.6 - 15.2 seconds INR 0.9 0.8 - 1.2 HEMOGLOBIN A1C Result Value Ref Range Hemoglobin A1C 7.1 (H) 4.0 - 5.6 % Estimated Average Glucose 157 (H) <126 mg/dL CBC Result Value Ref Range WBC 11.49 (H) 4.00 - 10.80 K/uL RBC 4.23 3.85 - 5.15 M/uL HGB 11.6 (L) 12.0 - 15.3 g/dL HCT 35.7 (L) 36.0 - 45.2 % MCV 84.4 81.5 - 97.5 fL MCH 27.4 27.0 - 34.0 pg MCHC 32.5 32.0 - 36.0 g/dL RDW 14.1 11.5 - 15.5 % PLT 316 140 - 400 K/uL MPV 10.0 6.6 - 11.1 fL nRBCs 0 <=0 /100 WBCs BASIC METABOLIC PANEL Result Value Ref Range BUN 14 6 - 20 mg/dL CREATININE 0.5 0.5 - 1.0 mg/dL EGFR >90 >=60 mL/min SODIUM 135 135 - 146 mmol/L POTASSIUM 4.5 3.5 - 5.1 mmol/L CHLORIDE 101 98 - 107 mmol/L CO2 21 (L) 22 - 32 mmol/L ANION GAP 13 7 - 15 mmol/L GLUCOSE 154 (H) 70 - 120 mg/dL CALCIUM 9.2 8.4 - 10.2 mg/dL MAGNESIUM Result Value Ref Range Magnesium 2.0 1.5 - 2.6 mg/dL PHOSPHORUS Result Value Ref Range Phosphorus 3.4 2.5 - 4.8 mg/dL CBC Result Value Ref Range WBC 14.58 (H) 4.00 - 10.80 K/uL RBC 4.27 3.85 - 5.15 M/uL HGB 11.7 (L) 12.0 - 15.3 g/dL HCT 35.6 (L) 36.0 - 45.2 % MCV 83.4 81.5 - 97.5 fL MCH 27.4 27.0 - 34.0 pg MCHC 32.9 32.0 - 36.0 g/dL RDW 14.1 11.5 - 15.5 % PLT 343 140 - 400 K/uL MPV 9.7 6.6 - 11.1 fL nRBCs 0 <=0 /100 WBCs BASIC METABOLIC PANEL Result Value Ref Range BUN 16 6 - 20 mg/dL CREATININE 0.5 0.5 - 1.0 mg/dL EGFR >90 >=60 mL/min SODIUM 137 135 - 146 mmol/L POTASSIUM 4.9 3.5 - 5.1 mmol/L CHLORIDE 101 98 - 107 mmol/L CO2 20 (L) 22 - 32 mmol/L ANION GAP 16 (H) 7 - 15 mmol/L GLUCOSE 202 (H) 70 - 120 mg/dL CALCIUM 9.4 8.4 - 10.2 mg/dL MAGNESIUM Result Value Ref Range Magnesium 2.1 1.5 - 2.6 mg/dL PHOSPHORUS Result Value Ref Range Phosphorus 2.3 (L) 2.5 - 4.8 mg/dL GLUCOSE METER, POINT OF CARE Result Value Ref Range Glucose - POCT 157 (H) 70 - 120 mg/dL GLUCOSE METER, POINT OF CARE Result Value Ref Range Glucose - POCT 218 (H) 70 - 120 mg/dL GLUCOSE METER, POINT OF CARE Result Value Ref Range Glucose - POCT 254 (H) 70 - 120 mg/dL GLUCOSE METER, POINT OF CARE Result Value Ref Range Glucose - POCT 273 (H) 70 - 120 mg/dL GLUCOSE METER, POINT OF CARE Result Value Ref Range Glucose - POCT 180 (H) 70 - 120 mg/dL GLUCOSE METER, POINT OF CARE Result Value Ref Range Glucose - POCT 269 (H) 70 - 120 mg/dL *Note: Due to a large number of results and/or encounters for the requested time period, some results have not been displayed. A complete set of results can be found in Results Review. REVIEW OF SYSTEMS: General: No Fever, chills, night sweats, HEENT: No change in visual acuity, blurred or double vision. No epistaxis, facial pain, nasal discharge or change in hearing. Denies dysphagia, no muscosal ulceration, or sores noted. Cardiovascular: No chest pain, ASHT[place], or palpitations Respiratory: No shortness of breath, cough, hemoptysis, or pleuritic chest pain Gastrointestinal: No abdominal pain, nausea, vomiting, diarrhea, rectal pain or bleeding Genitourinary: Denies Hematuria or dysuria Musculoskeletal: Complaining of back pain Psychiatric: No vegetative signs of [...] DEXA scan 10/02/2018 HTN, goal below 140/90 Lumbar degenerative disc disease 03/31/2024 Non compliance w medication regimen 09/16/2019 Obesity, Class I, BMI 30.0-34.9 (see actual BMI) 03/31/2024 Persistent insomnia 03/31/2024 Current Outpatient Medications Medication Sig Dispense Refill [...] preferred brand Dx E11.9 400 Each 3 Levothyroxine Sodium 100 MCG Oral Tablet TAKE 1 TABLET BY MOUTH ONCE DAILY 30 MINUTES BEFORE BREAKFAST OR OTHER MEDICATIONS 90 Tablet 3 Alendronate Sodium 70 MG Oral Tablet (Fosamax) Take 1 Tablet by mouth once a week. with 8 oz. water30 minutes before first meal of the day. Remain upright for 30 min after taking tablet. 15 Tablet 5 Dexcom G7 Sensor USE TO TEST BLOOD SUGAR 3 Each 11 NovoLOG FlexPen 100 UNIT/ML Subcutaneous Solution Pen-injector (insulin aspart) Inject 5 units under the skin with breakfast, 15 units at lunch, and 23 units at supper plus CF of 7 units with lunch and dinner if blood sugar >220 max 60 units/day 60 mL 2 Acetaminophen 500 MG Oral Tablet (Tylenol) take 2 tabs by mouth every 8 hours pain after surgery for 3 days 18 Tablet 0 Ondansetron HCl 4 MG Oral Tablet 1 tablet by mouth every 8 hours as needed for nausea after surgery. 30 Tablet 1 Vitamin D (Ergocalciferol) 1.25 MG (87425 UT) Oral Capsule (Drisdol) Take 1 capsule by mouth once aweek 12 Capsule 0 Atenolol 25 MG Oral Tablet (Tenormin) TAKE 1 TABLET BY MOUTH IN THE MORNING 90 Tablet 3 Mounjaro 12.5 MG/0.5ML Subcutaneous Solution Auto-injector (Tirzepatide) Inject 12.5 mg under the skin once a week. 6 mL 3 Losartan Potassium-HCTZ 100-25 MG Oral Tablet (Hyzaar) Take 1 tablet by mouth once daily 90 Tablet 2 Atorvastatin Calcium 80 MG Oral Tablet (Lipitor) Take 1 tablet by mouth once daily 90 Tablet 2 Insulin Glargine Solostar 100 UNIT/ML Subcutaneous Solution Pen-injector (Lantus SoloStar) Inject 33 Units under the skin at bedtime. 30 mL 5 levETIRAcetam 500 MG Oral Tablet (Keppra) Take 1 Tablet by mouth in the morning and 1 Tablet beforebedtime. 60 Tablet 0 Sennosides 8.6 MG Oral Tablet (Senokot) Take 1 Tablet by mouth in the morning and 1 Tablet before bedtime. Do all this for 14 days. 28 Tablet 0 Omeprazole 20 MG Oral Capsule Delayed Release (PriLOSEC) Take 1 Capsule by mouth in the morning for14 days. 14 Capsule 0 Morphine Sulfate 15 MG Oral Tablet (Msir) Take 1 Tablet by mouth every 4 hours as needed for Pain, Severe. 60 Tablet 0 Polyethylene Glycol 3350 17 GM Oral Packet (Miralax) Take 1 Packet by mouth in the morning. 14 Each0 No current facility-administered medications for this visit. Social History Tobacco Use Smoking status: Never Smokeless tobacco: Never Vaping Use Vaping status: Never Used Substance Use Topics Alcohol use: Yes Comment: rare Drug use: No Review of patient's allergies indicates: No Known Allergies PHYSICAL EXAMINATION: General Appearance: Weak appearing patient in no acute distress BP 142/80 (BP Site: Left Arm, BP Position: Sitting, BP Cuff Size: Regular) | Pulse 88 | Temp 36.1 °C (97 °F) (Tympanic) | Wt 64.9 kg (143 lb 1.6 oz) | LMP 03/13/2011 | SpO2 97% | BMI 27.95 kg/m² |BSA 1.66 m² Vitals reviewed. HEENT: No oral or pharyngeal [...] Good pulses bilaterally, no peripheral edema. Skin: Stable nodule on the right shoulder and decreasing no done on the skull ASSESSMENT: 69-year-old female with a past medical history significant for dyslipidemia, hypertension and diabetes was referred with recent diagnosis of left breast cancer which was found the mammogram. On the ultrasound there is complex cystic and solid mass with mostly circumscribed margins. Biopsy from the mass revealed complex cystic mass with small few detached fragments of adenocarcinoma. ER/UT and HER2 Musa negative. Clinically patient has stage T2 N0 disease. She had MRI breast done which shows the same solid/cystic component and the tumor size is 4.2 x 4 x4.2 cm and there is a low suspicious enhancing foci present inferiorly, no enlarged lymph nodes on the MRI. She underwent bilateral mastectomy and pathology on the left side is consistent with 5 cm grade 3 invasive ductal carcinoma with positive lymph nodes. Patient has pT2 pN1 disease. Her baseline PET scan was denied by the insurance because of the negative clinical lymph nodes. ER/UT/HER2 Musa were negative. Subsequently because of the positive lymph node she had a PET scan done on 09/19/2023 which was negative for metastatic disease. She was treated with adjuvant chemotherapy including dose dense AC followed by Taxol. She had issues with neuropathy and swelling of the lower extremity most likely because of the Taxol. She also completed radiation therapy. Patient was complaining of generalized weakness and fatigue and on physical examination she had palpable skin nodules. She had a PET scan done which shows extensive metastatic disease involving the brain, bone, liver hiro and subcutaneous nodules. She also had episode of seizure and currently she is on Keppra. Currently patient is receiving radiation therapy to the whole brain. She is complaining of pain in the back which may be because of the metastatic disease. I discussed with Dr. Ly from the Radiation Oncology and he agreed to look at the PET scan and may consider giving palliative radiation therapy to the painful area. Discussed with the patient in detail about diagnosis and prognosis reviewed all the available bloodtests and PET scan finding with her. I also reviewed the radiology images of the PET scan. Patient has extensive metastatic disease which is incurable. She can benefit with the palliative chemotherapy including combination of gemcitabine and carboplatin. I will also request the pathology for PD-L1. I will also request the IR for possible biopsy from the liver lesion to confirm the diagnosis and also look for the molecular targets. PLAN: As above. Dr. Ly from the Radiation therapy will consider palliative radiation therapy to the painful area. She will return clinic for follow-up in 3 weeks after the completion of the radiation therapy and will discuss the options of further treatment. The patient voiced understanding of all of [...] documented in this encounter Nursing Notes * Fanta Marshall CMA - 01/12/2025 11:02 AM EDT Patient identifed by name and [...] it for you? ALREADY ACTIVE Filed Vitals: 01/12/25 1101 BP: 142/80 Pulse: 88 Temp: 36.1 °C (97 °F) TempSrc: Tympanic SpO2: 97% Weight: 64.9 kg (143 lb 1.6 oz) Patient was instructed to not get up [...] 9:15 AM EDT Scheduled Telephone Palliative Medicine, [address] [place] [address] [place], Nurse Palliative Medicine [address] [address] 01/19/2025 12:30 PM EDT Telemedicine Psychology [place] [address] [place] [address] Jose Mas PsyD [address] [place] [address] 01/27/2025 8:00 AM EDT Office Visit Family Practice [facility] [address] [place] [address] Favian Castellon DO [address] [place] [address] 01/28/2025 1:28 PM EDT Hospital Encounter [facility], Operating Room [facility] [address] [place] [address] Thom Palomino, [address] [place] [phone] 01/28/2025 1:28 PM EDT - 01/28/2025 1:54 PM EDT Surgery OR [facility], Operating Room [facility] [address] [place] [address] Thom Palomino, DO [address] [place] [phone] INJECTION TRANSFORAMINAL EPIDURAL LUMBAR OR SACRAL 01/31/2025 2:30 PM EDT Imaging Radiology [address] [place] [address] 02/02/2025 10:00 AM EDT Office Visit Palliative Medicine [facility] [place] [address] [facility] [id number] Rakel Castillo MD [address] [place] [address] [place] [address] 02/02/2025 10:30 AM EDT Office Visit Hematology/Oncolo gy [facility] [place] [address] [facility] [place] [address] Eleuterio Zapata MD [address] [facility] [place] [address] 02/07/2025 10:45 AM EDT Office Visit Neurosurgery, [place] [address] [place] [address] Clinic, Brain Tumor Multidisciplinary [address] [place] [address] 03/23/2025 8:00 AM EDT Office Visit Pharmacy, [facility] [address] [place] [address] [facility] [place] [address] [facility] [place] [address] 03/24/2025 8:40 AM EDT Office Visit Neurology State Fariha Callahan 200 [facility] [place] [address] Tanya Mcpherson MD [address] [place] [address] Scheduled Orders Name Type Priority Associated Diagnoses Orde r Schedule IR BIOPSY Medical Imaging Routine Triple negative breast cancer (HCC) Ordered: 01/12/2025 Scheduled Procedures Name Priority Associated Diagnoses Date/Ti [...] this encounter Medical Devices Implanted Type Area Door Machine Operator Device Identifier Shelf Expiration Date Model / Serial / Lot Lens 24.0 Mx60e - [id number] - [id number] Implanted:Qty : 1 on 04/30/2018 by Martin Donnelly MD at OR [facility] Left: Eye BAUSCH & LOMB 01/10/2021 [id number]-31.0 / [id number] / [id number] Mx60 +23.0d Implanted:Qty : 1 on 05/12/2018 by Martin Donnelly MD at OR [facility] Right: Eye 07/12/2020 [id number] / [id number] / [id number] Duraclip 16mm Xlg Repostn - [id number] Implanted:Qty : 2 on 08/23/2022 by Sudhakar Martell MD at [facility] CONMED JESSICA 11/28/2023 [id number] / / Port Implant W/8f Poly Cath - [id number] Implanted:Qty : 1 on 09/18/2023 by Marty Quispe Jr., MD at OR [facility] BARD : PERIPHERAL VASCULAR [id number] 03/12/2025 [id number] / / [id number] documented as of this encounter Visit Diagnoses Diagnosis Triple negative breast cancer (HCC)- Primary Lumbar radiculopathy Thoracic or lumbosacral neuritis or [...] and were consensually agreed upon. Care Teams Ventilating Equipment Installer Relationship Specialty Start Date End Date Favian Castellon DO [address] [place] [address] PCP - General Family Medicine 10/21/24 documented as of this encounter"
--- OUTSIDE RECORDS SUMMARY | 2025-01-19 18:32 | External Medical Summary | Summary of Care ---
Author Name Unknown Organization [facility] Address [address] [place] [address] Phone [phone] Care Team Providers Care Hematology Oncology Consultant Name Role Phone Favian Castellonhiwot Primary Care Provider Reason for Referral * Evaluate & Treat - Unlimited Visits (Within 10 days (routine)) - Authorized Specialty Diagnoses / Procedures Referred By Suellen t Referred To Contact Psychology Diagnoses Cancer related pain Rakel Castillo MD [address] [place] [address] Phone: tel: fax: Referral ID Status Reason Start Date Expiration Date Visits Requested Visits Authorized [id number] Authorized Specialty Services Required 01/12/2025 [id number] Question Answer Referral Priority Within 10 days (routine) Where should this appointment be scheduled? [facility] Comments VIDEO VISIT - metastatic breast CA Reason for Visit * Evaluate & Treat - Unlimited Visits (Within 10 days (routine)) - Authorized Specialty Diagnoses / Procedures Referred By Contac t Referred To Contact Hospice and Palliative Medicine / Palliative Medicine Diagnoses Breast carcinoma, female, right (HCC) Triple negative breast cancer (HCC) Eleuterio Christensen MD 200 [place] [address] Phone: tel: fax: Referral ID Status Reason Start Date Expiration Date Visits Requested Visits Authorized [id number] Authorized Specialty Services Required 01/04/2025 [id number] Encounter Details Date Type Department Care Team (Late st Contact Info) Description 01/12/2025 11:00 AM EDT Office Visit Palliative Medicine [facility] [address] [place] [address] Rakel Castillo MD [address] [place] [address] Cancer related pain*; Constipation due to pain medication Allergies No known active allergiesdocumented as of [...] BREAKFAST OR OTHER MEDICATIONS 90 Tablet 3 024 Active Alendronate Sodium 70 MG Oral Tablet (Fosamax) Take 1 Tablet by mouth once a week. with 8 oz. water 30 minutes before first meal of the day. Remain upright for 30 min after taking tablet. 15 Tablet 5 024 Active Dexcom G7 Sensor USE TO TEST BLOOD SUGAR 3 Each 11 024 Active NovoLOG FlexPen 100 UNIT/ML Subcutaneous Solution Pen-injector (insulin aspart)Indication s:Type 2 diabetes mellitus with hemoglobin A1c goal of less than 8.0% (HCC) Inject 5 units under the skin with breakfast, 15 units at lunch, and 23 units at supper plus CF of 7 units with lunch and dinner if blood sugar >220 max 60 units/day 60 mL 2 024 Active Acetaminophen 500 MG Oral Tablet (Tylenol)Indicati [...] for nausea after surgery. 30 Tablet 1 Active Vitamin D (Ergocalciferol) 1.25 MG (87838 UT) Oral Capsule (Drisdol) Take 1 capsule [...] morning for 14 days. 14 Capsule 01/01/20 2:28 PM EDT 025 2024 Active Morphine Sulfate 15 MG Oral Tablet (Msir)Indications :Cancer related pain Take 1 Tablet by mouth every 4 hours as needed for Pain, Severe. 60 Tablet Active Polyethylene Glycol 3350 17 GM Oral Packet (Miralax)Indicati ons:Constipation due to pain medication Take 1 Packet by mouth in the morning. 14 Each Active dexAMETHasone 4 MG Oral Tablet (Decadron) [...] mRNA, LNP-s, No Pre serve, 2-Dose Series ([employer]) 08/15/2021,01/23/2021,12/29/2020 Hepatitis B, 20+ yrs 06/29/2015,01/19/2015,01/19 Pneumococcal Conjugate Vacci ne, 20-valent (Kphltkl25) 06/27/2022 Pneumococcal Polysaccharide PPV23 (Pneumovax) 02/10/2007 Seasonal [...] 07/12/2024 Does the household have a re gular source of income? (Household - for ages [...] Megan Bui RN documented in this encounter Patient Instructions * Patient Instructions* Roseann Sadler LPN - 01/12/2025 11:26 AM EDT Our Palliative Medicine Clinic is available Friday through Friday during business hours, so we are unavailable on weekends and holidays. Please ensure that you request refills early in the week as itmay take 1-2 days for them to be addressed and filled, for authorizations to be approved, or for the pharmacy to order them if needed. You can contact our office at [phone], which is our clinic in [place], or you can message us on [employer] R[employer]. If you have an emergency outside of these hours, we recommend calling your primary care clinic, Oncology office, or going to the ER if you have a medical emergency.-- documented in this encounter Progress Notes * Rakel Castillo MD - 01/12/2025 11:00 AM EDT Images from the original note were not included. Palliative Medicine Outpatient Consult Note [facility] Palliative Medicine Outreach [address] [place] [id number] Name: Aixa Cruz Date: 01/12/2025 Referring Provider: Eleuterio Christensen MD Reason for Consult: Goals of care; Pain and symptom management Patient accompanied by , history obtained from pt and . 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 Going through brain radiation at [facility], has had 3 of 10 sessions. Stopped dexamethasone last Friday.She says the first tx was bad but the rest have been OK. Palliative symptoms: Pain: Located at: Everywhere, mostly lower back, upper back Currently taking: Oxycodone 5mg before bed - helps her sleep fora bout 3h. One day she took Oxycodone twice and felt very groggy. : Nausea/Vomiting: no Appetite: poor - overall - on Mounjaro so expected to have lower appetite Constipation: working OK, was on stool softener Confusion: yes per - has word finding difficulties Sleep issues: not sleeping at all Dyspnea: no Mood issues: "fluctuates" - angry, Falls: no Other: Functional Status: - Palliative Performance Scale: 60% - Activities of Daily Living: (bolded items indicate areas of independence) 6/6 BADL (transfer, toilet, continence, bathe, dress self, feed self) 0/7 IADL (meds, transport, telephone, shop, housekeeping, meal prep, money management) - Ambulates: with cane - cannot stand, falling to the right SHx: Family Support: Son Sloan - whole family - [employer]ian family - has a great [place] Prior employment: Still working for [employer] - Works in [employer] - [employer] - able to work right now, contemplating to take STD Spiritual practice: goes to synagogue Favorite activities: Has a 7 mo grandson - Rodney - lives in [place] Smoking history: no Seldom alcohol use PHYSICAL EXAMINATION: Constitutional: no acute distress HENT: normocephalic, atraumatic. Eyes: anicteric, sclera and conjunctiva normal. Neck: no stridor Chest: normal respiratory effort Abdominal: nondistended Extremities: no edema Neuro: alert, oriented to person, place, and time Psych: normal mood and affect Data Review: External notes reviewed: - Reviewed notes from Dr christensen 01/12/2025, onc, cancer has spread now unfortunately - Reviewed notes from Hem onc nursing, she was started on Oxycoodne 5mg q4h PRN pain Lab / Imaging Results: Hb 11.7, on 12/31, normal Information obtained from for collateral history Discussion with other team members: I discussed patient with dr Christensen about plan of care Decision-making Capacity: Does Patient have Decisional Capacity? y Does Patient have a Healthcare Agent? Y, /son Sloan Discussion with Patient & Family: Met with patient and Introduced role of Outpatient Palliative Medicine team and reviewed symptoms as above. Reviewed patient's/family's understanding of current medical situation. They know she has metastatic disease. Hopeful that tx helps. She wants to fight this. Son will be looking into second opinions as well. Advanced Care Planning: AD: Provided PA AD for completion ASSESSMENT/PLAN: Aixa Cruz is a/an 69 year old female referred for consultation to Palliative Medicine with theprimary diagnosis of: L breast CA, initially underwent chemo and bilateral mastectomy, then found to have brain metastases in December leading to hospital stay at [facility]. Currently getting XRT at [facility]. Cancer related pain Opioid induced constipation [...] Drug Monitoring Program in compliance with the [facility] regulations before prescribing a controlled substance. Could not print HUONG but reviewed in person For bowels, continue Miralax/Senna. High risk of OIC with being on GLP-1 Behavioral health referral Will go to [facility] to see what kind of wheelchair she wants Provided PA AD to complete Follow up in 3 weeks, nurse call in 1 weeks. Pt is possibly able to do video visits. Next visit with me. Thank you for this consult. We appreciate the opportunity to take part in the care of your patient. Note routed back to referring provider Eleuterio Christensen MD and PCP Favian Castellon DO I spent a total of 45 minutes on the date of service in preparation, delivery, and documentation ofthe care provided to Aixa Cruz excluding any time spent in the performance of separately billed services. Billed as return since she saw colleague in [facility] MD [facility] [place] [facility] [phone] documented in this encounter Plan of Treatment Upcoming Encounters Date Type Department Care Team (Late st Contact Info) Description 01/19/2025 9:15 AM EDT Scheduled Telephone Palliative Medicine, [facility] [address] 5th Floor [place] [address] [place], Nurse Palliative Medicine [facility] 5th [address] [place] [address] 01/27/2025 8:00 AM EDT Office Visit Family Practice [facility] [address] [place] [address] Favian Castellon, DO [address] [place] [address] 01/28/2025 1:28 PM EDT Hospital Encounter [facility], Operating Room [facility] [address] [place] [phone] Thom Palomino, DO [address] [place] [phone] 01/28/2025 1:28 PM EDT - 01/28/2025 1:54 PM EDT Surgery [facility], Operating Room [facility] [address] [place] [phone] Thom Palomino, DO [address] [place] [phone] INJECTION TRANSFORAMINAL EPIDURAL LUMBAR OR SACRAL 01/31/2025 2:30 PM EDT Imaging Radiology [address] [place] [address] 02/02/2025 10:00 AM EDT Office Visit Palliative Medicine [facility] [address] [place] [address] Rakel Castillo MD [address] [place] [place] [address] 02/02/2025 10:30 AM EDT Office Visit Hematology/Oncolo gy Sergio Zavala [place] [address] [facility] [place] [address] Eleuterio Christensen MD [address] [facility] [place] [address] 02/07/2025 10:45 AM EDT Office Visit Neurosurgery, [place] [address] [place] [address] Clinic, Brain Tumor Multidisciplinary [address] [place] [address] 02/22/2025 1:00 PM EDT Telemedicine Psychology, Cancer Center Jake SHORT [address] [facility] [place] [id number] Radha Pettit PsyD [address] [place] [address] 03/23/2025 8:00 AM EDT Office Visit Pharmacy, [facility] [address] [facility] 132 [facility] [place] [address] 03/24/2025 8:40 AM EDT Office Visit Neurology State Fariha Callahan 200 [facility] [place] [address] Tanya Mcpherson MD [address] [facility] [place] [address] Scheduled Procedures Name Priority Associated Diagnoses Date/Ti me INJECTION TRANSFORAMINAL EPIDURAL LUMBAR OR SACRAL Lumbar radiculopathy 01/28/2025 1:28 PM EDT COLONOSCOPY FLEXIBLE PROXIMAL DIAGNOSTIC Recall History of colon polyps Scheduled Referrals Name Type Priority Associated Diagnoses Orde r Schedule ONCOLOGY BEHAVIORAL HEALTH REFERRAL OP Referral Within 10 days (routine) Cancer related pain Ordered: 01/12/2025 Health Maintenance Due Date Last Done Comments Depression Monitoring 1969 COVID-19 Vaccine ( season) 2024 08/15/2021, 01/23/2021, 12/29/2020 TSH 01/21/2025 01/22/2024, 12/12, 06/26/2022, Additional history exists DXA Scan 12/18/2025 12/18/2022, 10/02/2018 Pap Smear Discontinued 09/19/2020, 06/0 10/2016, 09/25/2012, [...] this encounter Medical Devices Implanted Type Area Client Director Device Identifier Shelf Expiration Date Model / Serial / Lot Lens 24.0 Mx60e - [id number] - [id number] Implanted:Qty : 1 on 04/30/2018 by Martin Donnelly MD at OR [facility] Left: Eye BAUSCH & LOMB 01/10/2021 [id number]-13.0 / [id number] / [id number] Mx60 +23.0d Implanted:Qty : 1 on 05/12/2018 by Martin Donnelly MD at OR [facility] Right: Eye 07/12/2020 [id number] / [id number] / [id number] Duraclip 16mm Xlg Repostn - [id number] Implanted:Qty : 2 on 08/23/2022 by Sudhakar Martell MD at [facility] JESSICA 11/28/2023 [id number] / / Port Implant W/8f Poly Cath - [id number] Implanted:Qty : 1 on 09/18/2023 by Marty Quispe Jr., MD at OR [facility] BARD : PERIPHERAL VASCULAR [id number] 03/12/2025 [id number] / / [id number] documented as of this encounter Visit Diagnoses Diagnosis Cancer related pain- Primary Neoplasm related pain (acute) (chronic) Constipation due to pain medication Other constipation Lumbar radiculopathy Thoracic or lumbosacral neuritis or [...] and were consensually agreed upon. Care Teams Hematology Oncology Consultant Relationship Specialty Start Date End Date Favian Castellon DO [address] [place] [address] PCP - General Family Medicine 10/21/24 documented as of this encounter
--- OUTSIDE RECORDS SUMMARY | 2025-01-19 18:32 | External Medical Summary ---
Author Name Unknown Address Unknown Organization K01:[facility] - [address] [place] [address] Laboratory Report Ordering Provider Test Date Status ROSETTA BHAT 01/12/2025 15:17:50 Final Observation Date Value Abnormality Reference (Units ) Status COMMENT 01/12/2025 15:17:50 Testing to be performed in house Final Performing Location [facility] - [address] [place] [address]
--- OUTSIDE RECORDS SUMMARY | 2025-01-19 18:32 | External Medical Summary | Summary of Care ---
Author Name Unknown Organization [facility] Address [address] [facility] [place] [address] Phone [phone] Care Team Providers Care Aerotriangulation Specialist Name Role Phone Favian Castellon Primary Care Provider Reason for Visit * Reason Onset Date Comments Precert In Process 01/04/2025 26 Kim Wolf Oxycodone Encounter Details Date Type Department Care Team (Late st Contact Info) Description 01/04/2025 Telephone Hematology/Oncology Sergio Zavala [place] [address] [place] [address] Services, Scheduling [address] [place] [address] Precert In Process (26 Kim Wolf Oxycodo... Allergies No known active allergiesdocumented as of this encounter (statuses as of 01/06/2025) Medications B-D Ultrafine III, 5MM, Pen MISC [...] 24 Active Vitamin D (Ergocalciferol) 1.25 MG (34251 UT) Oral Capsule (Drisdol) Take 1 capsule [...] 2:28 PM EDT 01/01/20 25 025 Active dexAMETHasone 4 MG Oral Tablet (Decadron) Take 1 Tablet by mouth in the morning and 1 Tablet at noon and 1 Tablet before bedtime. Do all this for 20 days. 60 Tablet 01/01/20 25 025 Active Sennosides 8.6 MG [...] 5 2:28 PM EDT 01/02/20 25 025 Active oxyCODONE HCl 5 MG Oral Tablet (Oxy IR)Indications:Beverly ast carcinoma, female, right (HCC),Metastasis to bone (HCC) Take 1 Tablet by mouth every 4 hours as needed for Pain, Breakthrough or Pain, Severe. 60 Tablet 01/05/20 25 Active documented as of this encounter (statuses as of 01/06/2025) Active Problems Problem Noted Date Diagnosed Date [...] as of this encounter (statuses as of 01/06/2025) Resolved Problems Problem Noted Date Diagnosed Date [...] as of this encounter (statuses as of 01/06/2025) Immunizations Name Administration Dates Next Due COVID-19 mRNA, LNP-s, No Pre serve, 2-Dose Series ([employer]) 08/15/2021,01/23/2021,12/29/2020 Hepatitis B, 20+ yrs 06/29/2015,01/19/2015,01/19 Pneumococcal Conjugate Vacci ne, 20-valent ([id number]) 06/27/2022 Pneumococcal Polysaccharide PPV23 (Pneumovax) 02/10/2007 Seasonal [...] No 07/12/2024 Does the household have a [facility] source of income? (Household - for ages [...] Telephone Encounter - Debra Robles RN - 01/06/2025 12:01 PM EDT Referral entered. * Telephone Encounter - Kim Rivero OSA - 01/06/2025 11:43 AM EDT Approved/Denied: approved Drug Name and Formulation: oxycodone 5 mg tab How Prescribed(directions/sig): Take 1 Tablet by mouth every 4 hours as needed for Pain, Breakthrough or Pain, Severe., Qty and Day Supply: 60/10 Did you receive insurance information from outside the chart? No, received insurance information within the chart Valid auth start date: 01/06/2025 Valid auth end date: 07/09/2025 Rx Insurance Info: [facility] Reference #: [email or web address] Rivero Medication Channeler Outsole 01/06/2025.11:43 AM * Telephone Encounter - Kim Rivero OSA - 01/05/2025 11:20 AM EDT [facility] Authorization Submission Submission Information: Medication: oxycodone 5 mg tab Portal used: [facility] Insurance: [facility] Authorization #/Macdonald: [id number] Kim Rivero Medication Channeler Outsole 01/05/2025.11:20 AM * Telephone Encounter - Debra Robles RN - 01/05/2025 9:43 AM EDT ICD-10: c50.911, c79.51 Start date: STAT Drugs: Disp Refills Start End oxyCODONE HCl 5 MG Oral Tablet (Oxy IR) 60 Tablet 0 01/04/2025 -- Sig - Route: Take 1 Tablet by mouth every 4 hours as needed for Pain, Breakthrough or Pain, Severe.- Oral Physician: Dr Faisal Ly * Telephone Encounter - Marimar Medina OSA - 01/04/2025 4:49 PM EDT Vinicio from [facility] pharmacy calling stating they can not fill patient's oxycodone for more than 30 pills without a prior auth. Please call Vinicio at [phone] with any other questions documented in this encounter Plan of Treatment Upcoming Encounters Date Type Department Care Team (Latest Contact Info) Description 01/12/2025 11:00 AM EDT Office Visit Palliative Medicine Sergio Zavala [place] 200 [facility] [place] [address] Rakel Castillo MD [address] [place] [address] [place] [address] 01/12/2025 2:00 PM EDT Office Visit Hematology/Oncolog y [facility] [place] [address] [place] [address] Eleuterio Zapata MD [address] [place] [address] 01/27/2025 8:00 AM EDT Office Visit Family Practice [facility] [address] [place] [address] Favian Castellon, DO [address] [place] [address] 01/28/2025 1:46 PM EDT Hospital Encounter [facility], Operating Room [facility] [address] [place] [phone] Thom Palomino, [address] [place] [phone] 01/28/2025 1:46 PM EDT - 01/28/2025 2:12 PM EDT Surgery [facility], Operating Room [facility] [address] [place] [phone] Thom Palomino, DO [address] [place] [phone] INJECTION TRANSFORAMINAL EPIDURAL LUMBAR OR SACRAL 03/23/2025 8:00 AM EDT Office Visit Pharmacy, [facility] [address] [place] [address] [facility] [address] [place] [address] 03/24/2025 8:40 AM EDT Office Visit Neurology [facility] [address] [place] [address] Tanya Mcpherson MD [address] [place] [address] Scheduled Procedures Name Priority Associated Diagnoses Date/Ti me INJECTION TRANSFORAMINAL EPIDURAL LUMBAR OR SACRAL Lumbar radiculopathy 01/28/2025 1:46 PM EDT COLONOSCOPY FLEXIBLE PROXIMAL DIAGNOSTIC Recall History of colon polyps Health Maintenance Due Date Last Done Comments Depression Monitoring 10/29/2023 10/29/2022 COVID-19 Vaccine ( season) 2024 08/15/2021, 01/23/2021, [...] this encounter Medical Devices Implanted Type Area Physicist Solid Earth Device Identifier Shelf Expiration Date Model / Serial / Lot Lens 24.0 Mx60e - [id number] - [id number] Implanted:Qty : 1 on 04/30/2018 by Martin Donnelly MD at OR [facility] Left: Eye BAUSCH & LOMB 01/10/2021 [id number]-44.0 / [id number] / [id number] Mx60 +23.0d Implanted:Qty : 1 on 05/12/2018 by Martin Donnelly MD at OR [facility] Right: Eye 07/12/2020 [id number] / [id number] / [id number] Duraclip 16mm Xlg Repostn - [id number] Implanted:Qty : 2 on 08/23/2022 by Sudhakar Martell MD at [facility] CONMED JESSICA 11/28/2023 [id number] / / Port Implant W/8f Poly Cath - [id number] Implanted:Qty : 1 on 09/18/2023 by Marty Quispe Jr., MD at [facility] BARD : PERIPHERAL VASCULAR [id number] 03/12/2025 [id number] / / [id number] documented as of this encounter Advance Directives [...] and were consensually agreed upon. Care Teams Aerotriangulation Specialist Relationship Specialty Start Date End Date Favian Castellon DO [address] [place] [address] PCP - General Family Medicine 10/21/24 documented as of this encounter
--- OUTSIDE RECORDS SUMMARY | 2025-01-19 18:32 | External Medical Summary | Summary of Care ---
Author Name Unknown Organization [facility] Address [address] [facility] [place] [address] Phone [phone] Care Team Providers Care Rat Exterminator Name Role Phone Favian Castellon Primary Care Provider Reason for Visit * Reason Onset Date Comments Outpatient Testing 01/12/2025 PDL1/ MyGenva r Encounter Details Date Type Department Care Team (Late st Contact Info) Description 01/12/2025 Telephone Hematology/Oncology Treatment, [place] [address] [place] [address] Eleuterio Zapata MD [address] [place] [address] Outpatient Testing (PDL1/ MyGenvar) Allergies No known [...] 24 Active Vitamin D (Ergocalciferol) 1.25 MG (70894 UT) Oral Capsule (Drisdol) Take 1 capsule [...] yrs 06/29/2015,01/19/2015,01/19 Pneumococcal Conjugate Vacci ne, 20-valent ([id number]) 06/27/2022 Pneumococcal Polysaccharide PPV23 (Pneumovax) 02/10/2007 Seasonal [...] documented in this encounter Miscellaneous Notes * Addendum Note - Sabrina Robles RN [...] 9:15 AM EDT Scheduled Telephone Palliative Medicine, [address] 5th Floor [place] [address] [place], Nurse Palliative Medicine [address] [place] [address] 01/19/2025 12:30 PM EDT Telemedicine Psychology [facility] [address] [place] [address] Jose Mas PsAaron [address] [place] [facility] [address] 01/27/2025 8:00 AM EDT Office Visit [facility] [address] [place] [address] Favian Castellon, [address] [place] [address] 01/28/2025 1:28 PM EDT Hospital Encounter [facility] Operating [facility] [address] [place] [phone] Thom Palomino, [address] [place] [phone] 01/28/2025 1:28 PM EDT - 01/28/2025 1:54 PM EDT Surgery [facility], Operating Room [facility] [address] [place] [phone] Thom Palomino DO [address] [place] [phone] INJECTION TRANSFORAMINAL EPIDURAL LUMBAR OR SACRAL 01/31/2025 2:30 PM EDT Imaging Radiology [address] [place] [address] 02/02/2025 10:00 AM EDT Office Visit Palliative Medicine [facility] [address] [facility] [address] [place] [phone] Rakel Castillo MD [address] [place] [address] [place] [address] 02/02/2025 10:30 AM EDT Office Visit Hematology/Oncolo gy [facility] [address] [place], [place] [address] Eleuterio Zapata MD [address] [place] [address] 02/07/2025 10:45 AM EDT Office Visit Neurosurgery, [place] [address] [place] [address] Clinic, Brain Tumor Multidisciplinary [address] [place] [address] 03/23/2025 8:00 AM EDT Office Visit Pharmacy, [facility] 132 [place] [address] [facility] 132 [place] [address] 03/24/2025 8:40 AM EDT Office Visit Neurology [facility] [address] [place], [place] [address] Tanya Mcpherson MD [address] [facility] [place] [address] Pending Results Name Type Priority Associated Diagnoses Date /Time ANATOMIC PATHOLOGY (BM/SURGICAL/CYTOLOGY) ADD ON REQUEST Lab Routine Breast carcinoma, female, right (HCC) Metastasis to bone (HCC) 01/12/2025 3:17 PM EDT Scheduled Procedures Name Priority Associated [...] this encounter Medical Devices Implanted Type Area Fabric Sourcer Device Identifier Shelf Expiration Date Model / Serial / Lot Lens 24.0 Mx60e - [id number] - [id number] Implanted:Qty : 1 on 04/30/2018 by Martin Donnelly MD at OR [facility] Left: Eye BAUSCH & LOMB 01/10/2021 [id number]-43.0 / [id number] / [id number] Mx60 +23.0d Implanted:Qty : 1 on 05/12/2018 by Martin Donnelly MD at OR [facility] Right: Eye 07/12/2020 IV0241.0 / [id number] / [id number] Duraclip 16mm Xlg Repostn - [id number] Implanted:Qty : 2 on 08/23/2022 by Sudhakar Martell MD at ENDOSCOPY [facility] CONMED JESSICA 11/28/2023 [id number] / / Port Implant W/8f Poly Cath - [id number] Implanted:Qty : 1 on 09/18/2023 by Marty Quispe Jr., MD at OR [facility] BARD : PERIPHERAL VASCULAR [id number] 03/12/2025 [id number] / / [id number] documented as of this encounter Visit Diagnoses [...] and were consensually agreed upon. Care Teams Rat Exterminator Relationship Specialty Start Date End Date Favian Castellon DO [address] [place] [address] PCP - General Family Medicine 10/21/24 documented as of this encounter
--- OUTSIDE RECORDS SUMMARY | 2025-01-19 18:32 | External Medical Summary | Summary of Care ---
Author Name Unknown Organization [facility] Address [address] [facility] [place] [address] Phone [phone] Care Team Providers Care Chef Passenger Vessel Name Role Phone Favian Castellon Primary Care Provider Reason for Visit * Reason Onset Date Comments Outpatient Testing 01/12/2025 PDL1/ MyGenva r Encounter Details Date Type Department Care Team (Late st Contact Info) Description 01/12/2025 Telephone Hematology/Oncology Treatment, [place] [address] [place] [address] Eleuterio Zapata MD 200 [place] [address] Outpatient Testing (PDL1/ MyGenvar) Allergies No known [...] 24 Active Vitamin D (Ergocalciferol) 1.25 MG (63770 UT) Oral Capsule (Drisdol) Take 1 capsule [...] yrs 06/29/2015,01/19/2015,01/19 Pneumococcal Conjugate Vacci ne, 20-valent (Tnnonkj74) 06/27/2022 Pneumococcal Polysaccharide PPV23 (Pneumovax) 02/10/2007 Seasonal [...] 9:15 AM EDT Scheduled Telephone Palliative Medicine, [address] 5th Floor [place] [address] [place], Nurse Palliative Medicine [address] [place] [address] 01/19/2025 12:30 PM EDT Telemedicine Psychology [facility] [address] [place] [address] Jose Mas PsAaron [address] [place] [facility] [place] [address] 01/27/2025 8:00 AM EDT Office Visit [facility] [address] [place] [address] Favian Castellon, [address] [place] [address] 01/28/2025 1:28 PM EDT Hospital Encounter [facility], Operating Room [facility] [address] [place] [phone] Thom Palomino, [address] [place] [phone] 01/28/2025 1:28 PM EDT - 01/28/2025 1:54 PM EDT Surgery [facility], Operating Room [facility] [address] [place] [phone] Thom Palomino DO [address] [place] [phone] INJECTION TRANSFORAMINAL EPIDURAL LUMBAR OR SACRAL 01/31/2025 2:30 PM EDT Imaging Radiology [address] [place] [address] 02/02/2025 10:00 AM EDT Office Visit Palliative Medicine [facility] [address] [phone] Rakel Castillo MD [address] [place] [address] [place] [address] 02/02/2025 10:30 AM EDT Office Visit Hematology/Oncolo gy [facility] [address] [place], [place] [address] Eleuterio Zapata MD [address] [place] [address] 02/07/2025 10:45 AM EDT Office Visit Neurosurgery, [place] [address] [place] [address] Clinic, Brain Tumor Multidisciplinary [address] [place] [address] 03/23/2025 8:00 AM EDT Office Visit Pharmacy, [facility] 132 [place] [address] [facility] 132 [place] [address] 03/24/2025 8:40 AM EDT Office Visit Neurology [facility] [address] [place], [place] [address] Tanya Mcpherson MD 200 [facility] [place] [address] Pending Results Name Type Priority Associated Diagnoses [...] encounter Medical Devices Implanted Type Area Head Of Biology Device Identifier Shelf Expiration Date Model / Serial / Lot Lens 24.0 Mx60e - [id number] - [id number] Implanted:Qty : 1 on 04/30/2018 by Martin Donnelly MD at OR [facility] Left: Eye BAUSCH & LOMB 01/10/2021 [id number]-97.0 / [id number] / [id number] Mx60 +23.0d Implanted:Qty : 1 on 05/12/2018 by Martin Donnelly MD at OR [facility] Right: Eye 07/12/2020 GU0049.0 / [id number] / [id number] Duraclip 16mm Xlg Repostn - [id number] Implanted:Qty : 2 on 08/23/2022 by Sudhakar Martell MD at ENDOSCOPY [facility] CONMED JESSICA 11/28/2023 [id number] / / Port Implant W/8f Poly Cath - [id number] Implanted:Qty : 1 on 09/18/2023 by Marty Quispe Jr., MD at OR [facility] BARD : PERIPHERAL VASCULAR [id number] 03/12/2025 [id number] / / [id number] documented as of this encounter Visit Diagnoses [...] and were consensually agreed upon. Care Teams Chef Passenger Vessel Relationship Specialty Start Date End Date Favian Castellon DO [address] [place] [address] PCP - General Family Medicine 10/21/24 documented as of this encounter
--- OUTSIDE RECORDS SUMMARY | 2025-01-19 18:32 | External Medical Summary | Summary of Care ---
Author Name Unknown Organization [facility] Address [address] [facility] [address] Phone [phone] Care Team Providers Care Special Machine Stitcher Name Role Phone CastellonGilbertojesús Sonhiwot Primary Care Provider Reason for Referral * Evaluate & Treat - Unlimited Visits (Within 10 days (routine)) - Authorized Specialty Diagnoses / Procedures Referred By Contamrik mercer Referred To Contact Hospice and Palliative Medicine / Palliative Medicine Diagnoses Breast carcinoma, female, right (HCC) Triple negative breast cancer (HCC) Eleuterio Zapata MD [address] [place] [address] [address] Phone: tel: fax: Referral ID Status Reason Start Date Expiration Date Visits Requested Visits Authorized [id number] Authorized Specialty Services Required 01/04/[phone] Question Answer Referral Priority Within 10 days (routine) Where should this appointment be scheduled? [facility] Reason for Referral: Cancer Palliative Medicine To Address: Pain & Symptom Management Referral Location Office Comments Metastatic breast cancer. Please discuss pain control measures going forward and symptom control. Thank you. Reason for Visit * Reason Onset Date Comments Advice 01/03/2025 Benny Follow Up 01/03/2025 Encounter Details Date Type Department Care Team (Late st Contact Info) Description 01/03/2025 Telephone Hematology/Oncology [place] [facility] Call[place] [address] [place] [phone] Eleuterio Zapata MD 200 [facility] [place] [address] Advice (Benny); Follow Up Allergies No known active allergiesdocumented as of this encounter (statuses as of 01/06/2025) Medications B-D Ultrafine III, 5MM, Pen MISC Use daily with insulin pen 1 Box Dosing Unit 11 02/01/20 16 Active aspirin 81 MG chewable tabletIndications: DM type 2, not at goal ([facility]) Take 1 Tab by mouth daily. with [...] hemoglobin A1c goal of less than 8.0% ([facility]) Inject 5 units under the skin with [...] hemoglobin A1c goal of less than 8.0% ([facility]),Esophageal dysphagia,Malignan t neoplasm of overlapping sites of [...] 24 Active Vitamin D (Ergocalciferol) 1.25 MG (79163 UT) Oral Capsule (Drisdol) Take 1 capsule [...] 14 Capsule 12/31/2024 2:28 PM EDT 01/02/20 025 Active documented as of this encounter (statuses [...] Epileptic seizure 12/30/2024 12/31/2024 Neoplasm related pain 12/30/[address] Other constipation 12/30/2024 Nausea and vomiting 12/30/2024 [...] 12/20/200409/06 FAMILY HX-BREAST MALIG 10/01/200110/31 Other otosclerosis documented as of this encounter (statuses as of 01/06/2025) Immunizations Name Administration Dates Next Due COVID-19 mRNA, LNP-s, No Pre serve, 2-Dose Series (Pfizer) 08/15/2021,01/23/2021,12/29/2020 Hepatitis B, 20+ yrs 06/29/2015,01/19/2015,01/19 Pneumococcal Conjugate Vacci ne, 20-valent (Lccysfq84) 06/27/2022 Pneumococcal Polysaccharide PPV23 (Pneumovax) 02/10/2007 Seasonal [...] of Assessment Author No 12/30/2024 3:10 AM EDMegan Gleason RN * Because of a physical, mental, [...] Entry Date Author No 12/30/2024 3:10 AM EDMegan Gleason RN documented in this encounter Miscellaneous Notes * Telephone Encounter - Tonny Rojas RN - 01/06/2025 3:01 PM EDT Called patient ,she was able to pickle maker the oxycodone and her pain is now 3/10, much better and more controllable. She is seeing Palliative Care and Dr. Zapata on 01/12. * Telephone Encounter - Tonny Rojas RN - 01/04/2025 4:21 PM EDT Spoke with Dr. Ly- will prescribe oxycodone 5mg every 4 hrs as needed for severe pain and refer to Palliative Medicine if patient is agreeable. Called patient. She is ok with Palliative Care referral, order placed. Script for Percocet sent to Dr. Ly to sign. N:S- please follow up with patient in 2 days to check on her pain status. * Telephone Encounter - Tonny Rojas RN - 01/04/2025 7:45 AM EDT Pt seen by Rad Onc yesterday, had her SIM and is planning to start 10 tx of XRT to the brain on 01/06. Dr. Zapata- patient states she has having 8/10 pain in her left abdomen that is constant. She statesshe was previously having this pain on her right side but that has stopped and now its her left abdomen. She does have Tramadol which she has been taking with little to no effect. * Telephone Encounter - Tonny Rojas RN - 01/04/2025 7:35 AM EDT HEMATOLOGY/ONCOLOGY HOSPITAL DISCHARGE FOLLOW-UP Call placed to patient to follow up after hospital discharge. Dates patient was admitted: 12/30/24 to 12/31/24 with a primary diagnosis of Breast Cancer Metastasized to Brain. Currently has the following complaints: Fatigue/Insomnia. Left sided abdominal pain she rates 8/10 constant . All current medications reviewed with patient. Patient verbalizes understanding of regimen. Post discharge hospital visit is scheduled and patient is aware. * Telephone Encounter - Mikel Montero OSA - 01/03/2025 4:41 PM EDT Patient called in stating she was in the Hospital last week and a lot has happened while she was there and she now needs a biopsy done as soon as possible. Patient states someone was suppose to reachout to her concerning this but she has not heard from anyone. Patient is asking for a call back first thing in the morning. She is very concerned about her condition and what she needs to have done and really needs to speak with someone as soon as possible. Please call her back at [phone] documented in this encounter Plan of Treatment Upcoming Encounters Date Type Department Care Team (Latest Contact Info) Description 01/12/2025 11:00 AM EDT Office Visit Palliative Medicine [facility] 200 [place] [phone] Rakel Castillo MD [address] [facility] [place] [address] 01/12/2025 2:00 PM EDT Office Visit Hematology/Oncolog y [facility] [address] [place] [phone] Eleuterio Zapata MD [facility] [address] 01/27/2025 8:00 AM EDT Office Visit Family Practice [facility] [address] [place] [address] Favian Castellon, DO [address] [place] [address] 01/28/2025 1:46 PM EDT Hospital Encounter [facility], Operating Room [facility] [address] [place] [address] [place] [address] Thom Palomino, DO [address] [place] [phone] 01/28/2025 1:46 PM EDT - 01/28/2025 2:12 PM EDT Surgery [facility], Operating Room [facility] [address] [place] [address] [place] [address] Thom Palomino DO [address] [place] [phone] INJECTION TRANSFORAMINAL EPIDURAL LUMBAR OR SACRAL 03/23/2025 8:00 AM EDT Office Visit Pharmacy, [facility] [place] [address] [facility] [address] [place] [address] 03/24/2025 8:40 AM EDT Office Visit Neurology [facility] [address] [place] [address] Tanya Mcpherson MD [address] [place] [address] Scheduled Procedures Name Priority Associated Diagnoses Date/Ti me INJECTION TRANSFORAMINAL EPIDURAL LUMBAR OR SACRAL Lumbar radiculopathy 01/28/2025 1:46 PM EDT COLONOSCOPY FLEXIBLE PROXIMAL DIAGNOSTIC Recall History of colon polyps Scheduled Referrals Name Type Priority Associated Diagnoses Orde r Schedule PALLIATIVE CARE REFERRAL OP Referral Within 10 days (routine) Breast carcinoma, female, right (HCC) Triple negative breast cancer (HCC) Ordered: 01/04/2025 Health Maintenance Due Date Last Done Comments [...] this encounter Medical Devices Implanted Type Area Roofer Device Identifier Shelf Expiration Date Model / Serial / Lot Lens 24.0 Mx60e - [id number] - [id number] Implanted:Qty : 1 on 04/30/2018 by Martin Donnelly MD at OR [facility] Left: Eye BAUSCH & LOMB 01/10/2021 [id number]-78.0 / [id number] / [id number] Mx60 +23.0d Implanted:Qty : 1 on 05/12/2018 by Martin Donnelly MD at OR [facility] Right: Eye 07/12/2020 WA0554.0 / [id number] / [id number] Duraclip 16mm Xlg Repostn - [id number] Implanted:Qty : 2 on 08/23/2022 by Sudhakar Martell MD at ENDOSCOPY [facility] CONMED JESSICA 11/28/2023 [id number] / / Port Implant W/8f Poly Cath - [id number] Implanted:Qty : 1 on 09/18/2023 by Marty Quispe Jr., MD at OR [facility] BARD : PERIPHERAL VASCULAR [id number] 03/12/2025 [id number] / / [id number] documented as of this encounter Visit Diagnoses Diagnosis Breast carcinoma, female, right (HCC)- Primary Triple negative breast cancer (HCC) Lumbar radiculopathy Thoracic or lumbosacral neuritis or [...] and were consensually agreed upon. Care Teams Special Machine Stitcher Relationship Specialty Start Date End Date Favian Castellon DO [address] [place] [address] PCP - General Family Medicine 10/21/24 documented as of this encounter
--- OUTSIDE RECORDS SUMMARY | 2025-01-19 18:32 | External Medical Summary | Summary of Care ---
Author Name Unknown Organization [facility] Address [address] [place] [address] Phone [phone] Care Team Providers Care Lamination Operator Name Role Phone Favian Castellon Primary Care Provider Reason for Visit * Reason Onset Date Comments Appointment 01/06/2025 Encounter Details Date Type Department Care Team (Late st Contact Info) Description 01/06/2025 Telephone [facility], [place] [address] [place] [address] Specified, Z No Resource [address] [place] [address] Appointment Allergies No known active allergiesdocumented as of this encounter (statuses as of 01/10/2025) Medications B-D Ultrafine III, 5MM, Pen MISC [...] 24 Active Vitamin D (Ergocalciferol) 1.25 MG (75814 UT) Oral Capsule (Drisdol) Take 1 capsule [...] as of this encounter (statuses as of 01/10/2025) Active Problems Problem Noted Date Diagnosed Date [...] as of this encounter (statuses as of 01/10/2025) Resolved Problems Problem Noted Date Diagnosed Date [...] Routine general medical exam ination at a [facility] care facility 07/09/2012 01/19/2014 Overview (07/09/2012): 06/24 [...] as of this encounter (statuses as of 01/10/2025) Immunizations Name Administration Dates Next Due COVID-19 mRNA, LNP-s, No Pre serve, 2-Dose Series (Pfizer) 08/15/2021,01/23/2021,12/29/2020 Hepatitis B, 20+ yrs 06/29/2015,01/19/2015,01/19 Pneumococcal Conjugate Vacci ne, 20-valent (Pkjossz33) 06/27/2022 Pneumococcal Polysaccharide PPV23 (Pneumovax) 02/10/2007 Seasonal [...] encounter Miscellaneous Notes * Telephone Encounter - Shannan Carrasco OSA - 01/10/2025 3:07 PM EDT Spoke to patient to schedule for Brain Tumor MDC in 1 month with MRI prior. Patient is scheduled for MRI on 01/31 and appt with Brain Tumor MDC on 02/07 * Telephone Encounter - Fanta oCurtney OSA - 01/06/2025 4:09 PM EDT Appt Needed Within: (Specify # of Days, Weeks, Months) -> 1 Mo Provider -> BRAIN TUMOR MULTIDISCIPLINARY CLINIC Released on: 12/31/2024 8:43 AM Please advise Ty documented in this encounter Plan of Treatment Upcoming Encounters Date Type Department Care Team (Latest Contact Info) Description 01/12/2025 11:00 AM EDT Office Visit Palliative Medicine [facility] [address] Rakel Castillo MD [address] [place] [address] [place] [address] 01/12/2025 2:00 PM EDT Office Visit Hematology/Oncolog y [facility] [place] [address] [place] [phone] Eleuterio Zapata MD [address] [place] [address] 01/27/2025 8:00 AM EDT Office Visit Family Practice [facility] [address] [place] [address] Favian Castellon, DO [address] [place] [address] 01/28/2025 1:46 PM EDT Hospital Encounter [facility] Operating [facility] [address] [place] [phone] Thmo Palomino, DO [address] [place] [phone] 01/28/2025 1:46 PM EDT - 01/28/2025 2:12 PM EDT Surgery [facility], Operating Room [facility] [address] [place] [phone] Thom Palomino, DO [address] [place] [address] INJECTION TRANSFORAMINAL EPIDURAL LUMBAR OR SACRAL 01/31/2025 2:30 PM EDT Imaging Radiology [address] [place] [address] 02/07/2025 10:45 AM EDT Office Visit [facility], [place] [facility] [address] Clinic, [facility] [address] [facility] [address] 03/23/2025 8:00 AM EDT Office Visit Pharmacy, [facility] [address] [facility] [place] [address] [facility] [address] [facility] [place] [address] 03/24/2025 8:40 AM EDT Office Visit Neurology [facility] [address] [place] [address] Tanya Mcpherson MD 200 [facility] [place] [address] Scheduled Procedures Name Priority Associated Diagnoses Date/Ti me INJECTION TRANSFORAMINAL EPIDURAL LUMBAR OR SACRAL Lumbar radiculopathy 01/28/2025 1:46 PM EDT COLONOSCOPY FLEXIBLE PROXIMAL DIAGNOSTIC Recall History of colon polyps Health Maintenance Due Date Last Done Comments Depression Monitoring 10/29/2023 COVID-19 Vaccine ( season) 2024 08/15/2021, 01/23/2021, [...] this encounter Medical Devices Implanted Type Area Business Intelligence Developer Device Identifier Shelf Expiration Date Model / Serial / Lot Lens 24.0 Mx60e - [id number] - [id number] Implanted:Qty : 1 on 04/30/2018 by Martin Donnelly MD at OR [facility] Left: Eye BAUSCH & LOMB 01/10/2021 ER99G-52.0 / [id number] / [id number] Mx60 +23.0d Implanted:Qty : 1 on 05/12/2018 by Martin Donnelly MD at OR [facility] Right: Eye 07/12/2020 KR0780.0 / [id number] / [id number] Duraclip 16mm Xlg Repostn - [id number] Implanted:Qty : 2 on 08/23/2022 by Sudhakar Martell MD at [facility] CONMED JESSICA 11/28/2023 [id number] / / Port Implant W/8f Poly Cath - [id number] Implanted:Qty : 1 on 09/18/2023 by Marty Quispe Jr., MD at OR [facility] BARD : PERIPHERAL VASCULAR [id number] 03/12/2025 [id number] / / [id number] documented as of this encounter Advance Directives [...] and were consensually agreed upon. Care Teams Lamination Operator Relationship Specialty Start Date End Date Favian Castellon DO [address] [place] [address] PCP - General Family Medicine 10/21/24 documented as of this encounter
--- OUTSIDE RECORDS SUMMARY | 2025-01-19 18:33 | External Medical Summary | Summary of Care ---
Author Name Unknown Organization [facility] Address [address] [facility] [place] [address] Phone [phone] Care Team Providers Care Information Technology Program Manager Name Role Phone Favian Castellon Primary Care Provider Reason for Visit * Reason Onset Date Comments Precert In Process 01/04/2025 26 Kim Wolf Oxycodone Encounter Details Date Type Department Care Team (Late st Contact Info) Description 01/04/2025 Telephone Hematology/Oncology Sergio Z[place] [address] [place] [address] Services, Scheduling [address] [place] [address] Precert In Process (26 Kim Wolf Oxycodo... Allergies No known active allergiesdocumented as of this encounter (statuses as of 01/05/2025) Medications B-D Ultrafine III, 5MM, Pen MISC [...] 24 Active Vitamin D (Ergocalciferol) 1.25 MG (31142 UT) Oral Capsule (Drisdol) Take 1 capsule [...] as of this encounter (statuses as of 01/05/2025) Active Problems Problem Noted Date Diagnosed Date [...] as of this encounter (statuses as of 01/05/2025) Resolved Problems Problem Noted Date Diagnosed Date [...] as of this encounter (statuses as of 01/05/2025) Immunizations Name Administration Dates Next Due COVID-19 mRNA, LNP-s, No Pre serve, 2-Dose Series ([employer]) 08/15/2021,01/23/2021,12/29/2020 Hepatitis B, 20+ yrs 06/29/2015,01/19/2015,01/19 Pneumococcal Conjugate Vacci ne, 20-valent ([id number]) 06/27/2022 Pneumococcal Polysaccharide PPV23 (Pneumovax) 02/10/2007 Seasonal [...] No 07/12/2024 Does the household have a [facility] medical cent[facility] source of income? (Household - for ages [...] encounter Miscellaneous Notes * Telephone Encounter - Kim Rivero OSA - 01/05/2025 11:20 AM EDT [facility] Authorization Submission Submission Information: Medication: oxycodone 5 mg tab Portal used: [facility] Insurance: [facility] Authorization #/Macdonald: [id number] Kim Rivero Medication Senior Software Engineering Manager 01/05/2025.11:20 AM * Telephone Encounter - Debra [...] - 01/04/2025 4:49 PM EDT Vinicio from [facility] pharmacy calling stating they can not fill patient's oxycodone for more than 30 pills without a prior auth. Please call Vinicio at [phone] with any other questions documented in this encounter Plan of Treatment Upcoming Encounters Date Type Department Care Team (Latest Contact Info) Description 01/12/2025 2:00 PM EDT Office Visit Hematology/Oncolog [facility] [place] [address] [place] [address] Eleuterio Zapata MD 200 [facility] [address] [place] [address] 01/27/2025 8:00 AM EDT Office Visit Family Practice [facility] [address] [place] [address] Favian Castellon, DO [address] [place] [address] 01/28/2025 1:46 PM EDT Hospital Encounter [facility] [address] [place] [phone] Thom Palomino, DO [address] [place] [phone] 01/28/2025 1:46 PM EDT - 01/28/2025 2:12 PM EDT Surgery [place] [facility], Operating Room [facility] [address] [place] [phone] Thom Palomino, DO [address] [place] [phone] INJECTION TRANSFORAMINAL EPIDURAL LUMBAR OR SACRAL 03/23/2025 8:00 AM EDT Office Visit Pharmacy, [facility] [address] [place] [address] [facility] [place] [address] [place] [address] 03/24/2025 8:40 AM EDT Office Visit Neurology [place] Fariha Callahan 200 [facility] [place] [address] Tanya Mcpherson MD 200 [facility] [place] [address] Scheduled Procedures Name Priority Associated Diagnoses Date/Ti [...] this encounter Medical Devices Implanted Type Area Whizzer Hand Device Identifier Shelf Expiration Date Model / Serial / Lot Lens 24.0 Mx60e - [id number] - [id number] Implanted:Qty : 1 on 04/30/2018 by Martin Donnelly MD at OR [facility] Left: Eye BAUSCH & LOMB 01/10/2021 OB03O-88.0 / [id number] / [id number] Mx60 +23.0d Implanted:Qty : 1 on 05/12/2018 by Martin Donnelly MD at OR [facility] Right: Eye 07/12/2020 AE1998.0 / [id number] / [id number] Duraclip 16mm Xlg Repostn - [id number] Implanted:Qty : 2 on 08/23/2022 by Sudhakar Martell MD at [facility] CONMED JESSICA 11/28/2023 [id number] / / Port Implant W/8f Poly Cath - [id number] Implanted:Qty : 1 on 09/18/2023 by Marty Quispe Jr., MD at OR [facility] BARD : PERIPHERAL VASCULAR [id number] 03/12/2025 [id number] / / [id number] documented as of this encounter Advance Directives [...] and were consensually agreed upon. Care Teams Information Technology Program Manager Relationship Specialty Start Date End Date Favian Castellon DO [address] [place] [address] PCP - General Family Medicine 10/21/24 documented as of this encounter
--- OUTSIDE RECORDS SUMMARY | 2025-01-19 18:33 | External Medical Summary | Summary of Care ---
Author Name Unknown Organization [facility] Address [address] [facility] [place] [address] Phone [phone] Care Team Providers Care Enrollment Management Coordinator Name Role Phone Favian Castellon Primary Care Provider Reason for Visit * Reason Onset Date Comments Precert In Process 01/04/2025 26 Kim Wolf Oxycodone Encounter Details Date Type Department Care Team (Late st Contact Info) Description 01/04/2025 Telephone Hematology/Oncology Sergio Zavala [place] [address] [place] [address] Services, Scheduling [address] [place] [address] Precert In Process (26 Kim Wolf Oxycodo... [...] 24 Active Vitamin D (Ergocalciferol) 1.25 MG (26593 UT) Oral Capsule (Drisdol) Take 1 capsule [...] mRNA, LNP-s, No Pre serve, 2-Dose Series ([employer]) 08/15/2021,01/23/2021,12/29/2020 Hepatitis B, 20+ yrs 06/29/2015,01/19/2015,01/19 Pneumococcal Conjugate Vacci ne, 20-valent ([id number]) 06/27/2022 Pneumococcal Polysaccharide PPV23 (Pneumovax) 02/10/2007 Seasonal [...] No 07/12/2024 Does the household have a [facility] source of income? (Household - for [...] Rivero OSA - 01/05/2025 11:20 AM EDT [facility] Authorization Submission Submission Information: Medication: oxycodone 5 mg tab Portal used: [facility] Insurance: [facility] Authorization #/Macdonald: [id number] Kim Rivero Medication Fulling Machine Operator 01/05/2025.11:20 AM * Telephone Encounter - Debra [...] - 01/04/2025 4:49 PM EDT Vinicio from [facility] pharmacy calling stating they can not fill patient's oxycodone for more than 30 pills without a prior auth. Please call Vinicio at [phone] with any other questions documented in this encounter Plan of Treatment Upcoming Encounters Date Type Department Care Team (Latest Contact Info) Description 01/12/2025 2:00 PM EDT [facility] [place] [address] [place] [address] Eleuterio Zapata MD [address] [facility] [address] [place] [address] 01/27/2025 8:00 AM EDT Office Visit Family Practice [facility] [address] [place] [address] Favian Castellon, DO [address] [place] [address] 01/28/2025 1:46 PM EDT Hospital Encounter [place] [facility], Operating Room OSHP [address] [place] [phone] Thom Palomino, DO [address] [place] [phone] 01/28/2025 1:46 PM EDT - 01/28/2025 2:12 PM EDT Surgery [place] [facility], Operating Room OSHP [address] [place] [phone] Thom Palomino, DO [address] [place] [phone] INJECTION TRANSFORAMINAL EPIDURAL LUMBAR OR SACRAL 03/23/2025 8:00 AM EDT Office Visit Pharmacy, [facility] [address] [place] [address] [facility] [place] [address] [place] [address] 03/24/2025 8:40 AM EDT Office Visit Neurology State Fariha Callahan 200 [facility] [place] [address] Tanya Mcpherson MD 200 [facility] [place] [address] Scheduled Procedures Name Priority Associated Diagnoses Date/Ti [...] this encounter Medical Devices Implanted Type Area Wood Borer Device Identifier Shelf Expiration Date Model / Serial / Lot Lens 24.0 Mx60e - [id number] - [id number] Implanted:Qty : 1 on 04/30/2018 by Martin Donnelly MD at OR [facility] Left: Eye BAUSCH & LOMB 01/10/2021 SE16O-80.0 / [id number] / [id number] Mx60 +23.0d Implanted:Qty : 1 on 05/12/2018 by Martin Donnelly MD at OR [facility] Right: Eye 07/12/2020 KI4196.0 / [id number] / [id number] Duraclip 16mm Xlg Repostn - [id number] Implanted:Qty : 2 on 08/23/2022 by Sudhakar Martell MD at [facility] CONMED JESSICA 11/28/2023 [id number] / / Port Implant W/8f Poly Cath - [id number] Implanted:Qty : 1 on 09/18/2023 by Marty Quispe Jr., MD at OR [facility] BARD : PERIPHERAL VASCULAR [id number] 03/12/2025 [id number] / / [id number] documented as of this encounter Advance Directives [...] and were consensually agreed upon. Care Teams Enrollment Management Coordinator Relationship Specialty Start Date End Date Favian Castellon DO [address] [place] [address] PCP - General Family Medicine 10/21/24 documented as of this encounter
--- OUTSIDE RECORDS SUMMARY | 2025-01-19 18:33 | External Medical Summary | Summary of Care ---
Author Name Unknown Organization [facility] Address [address] [facility] [place] [address] Phone [phone] Care Team Providers Care Cryptologic Supervisor Name Role Phone Favian Castellon Primary Care Provider Reason for Visit * Reason Onset Date Comments Precert In Process 01/04/2025 26 Kim Wolf Oxycodone Encounter Details Date Type Department Care Team (Late st Contact Info) Description 01/04/2025 Telephone Hematology/Oncology Sergio Zavala [place] [address] [place] [address] Services, Scheduling [address] [place] [address] Precert In Process (26 Kim Wolf Oxycodo... [...] 24 Active Vitamin D (Ergocalciferol) 1.25 MG (16588 UT) Oral Capsule (Drisdol) Take 1 capsule [...] mRNA, LNP-s, No Pre serve, 2-Dose Series ([employer]) 08/15/2021,01/23/2021,12/29/2020 Hepatitis B, 20+ yrs 06/29/2015,01/19/2015,01/19 Pneumococcal Conjugate Vacci ne, 20-valent (Rezumjl36) 06/27/2022 Pneumococcal Polysaccharide PPV23 (Pneumovax) 02/10/2007 Seasonal [...] No 07/12/2024 Does the household have a [facility] source of income? (Household - for [...] Rivero OSA - 01/05/2025 11:20 AM EDT [facility] Authorization Submission Submission Information: Medication: oxycodone 5 mg tab Portal used: [facility] Insurance: [facility] Authorization #/Macdonald: [id number] Kim Rivero Medication Band Singer 01/05/2025.11:20 AM * Telephone Encounter - Debra [...] - 01/04/2025 4:49 PM EDT Vinicio from [facility] pharmacy calling stating they can not fill patient's oxycodone for more than 30 pills without a prior auth. Please call Vinicio at [phone] with any other questions documented in this encounter Plan of Treatment Upcoming Encounters Date Type Department Care Team (Latest Contact Info) Description 01/12/2025 2:00 PM EDT Office Visit [facility] [place] [address] [place] [address] Eleuterio Zapata MD 200 [facility] [place] [address] 01/27/2025 8:00 AM EDT Office Visit Family Practice [facility] [address] [place] [address] Favian Castellon, DO [address] [place] [address] 01/28/2025 1:46 PM EDT Hospital Encounter [facility], Operating Room OSHP [address] [place] [phone] Thom Palomino, DO [address] [place] [phone] 01/28/2025 1:46 PM EDT - 01/28/2025 2:12 PM EDT Surgery [place] [facility], Operating Room OSHP [address] [place] [phone] Thom Palomino, DO [address] [place] [phone] INJECTION TRANSFORAMINAL EPIDURAL LUMBAR OR SACRAL 03/23/2025 8:00 AM EDT Office Visit Pharmacy, [facility] [address] [place] [address] [facility] [place] [address] [place] [address] 03/24/2025 8:40 AM EDT Office Visit Neurology State Fariha Callahan 200 [facility] [place] [address] Tanya Mcpherson MD 200 [facility] [place] [address] Scheduled Procedures Name Priority Associated Diagnoses Date/Ti [...] this encounter Medical Devices Implanted Type Area Molding And Trim Installer Device Identifier Shelf Expiration Date Model / Serial / Lot Lens 24.0 Mx60e - [id number] - [id number] Implanted:Qty : 1 on 04/30/2018 by Martin Donnelly MD at OR [facility] Left: Eye BAUSCH & LOMB 01/10/2021 QB75T-23.0 / [id number] / [id number] Mx60 +23.0d Implanted:Qty : 1 on 05/12/2018 by Martin Donnelly MD at OR [facility] Right: Eye 07/12/2020 OR3500.0 / [id number] / [id number] Duraclip 16mm Xlg Repostn - [id number] Implanted:Qty : 2 on 08/23/2022 by Sudhakra Martell MD at [facility] CONMED JESSICA 11/28/2023 [id number] / / Port Implant W/8f Poly Cath - [id number] Implanted:Qty : 1 on 09/18/2023 by Marty Quispe Jr., MD at OR [facility] BARD : PERIPHERAL VASCULAR [id number] 03/12/2025 [id number] / / [id number] documented as of this encounter Advance Directives [...] and were consensually agreed upon. Care Teams Cryptologic Supervisor Relationship Specialty Start Date End Date Favian Castellon DO [address] [place] [address] PCP - General Family Medicine 10/21/24 documented as of this encounter
--- OUTSIDE RECORDS SUMMARY | 2025-01-19 18:33 | External Medical Summary | Summary of Care ---
Author Name Unknown Organization [facility] Address [address] [facility] [address] Phone [phone] Care Team Providers Care Skills Instructor Name Role Phone CastellonGilbertojesús Sonhiwot Primary Care Provider Reason for Referral * Evaluate & Treat - Unlimited Visits (Within 10 days (routine)) - Authorized Specialty Diagnoses / Procedures Referred By Contamrik mercer Referred To Contact Hospice and Palliative Medicine / Palliative Medicine Diagnoses Breast carcinoma, female, right (HCC) Triple negative breast cancer (HCC) Eleuterio Zapata MD [address] [address] Phone: tel: fax: Referral ID Status Reason Start Date Expiration Date Visits Requested Visits Authorized [id number] Authorized Specialty Services Required 01/04/2025 999 999 [...] Hematology/Oncology [place] Callahan [address] [place] [phone] Eleuterio Zapata MD 200 [facility] [place] [place] [address] Advice (Benny); Follow Up Allergies No known active allergiesdocumented as of this encounter (statuses as of 01/05/2025) Medications B-D Ultrafine III, 5MM, Pen MISC Use daily with insulin pen 1 Box Dosing Unit 11 02/01/20 16 Active aspirin 81 MG chewable tabletIndications: DM type 2, not at goal ([facility]) Take 1 Tab by mouth daily. with [...] hemoglobin A1c goal of less than 8.0% ([facility]) Inject 5 units under the skin with [...] hemoglobin A1c goal of less than 8.0% ([facility]),Esophageal dysphagia,Malignan t neoplasm of overlapping sites of [...] 24 Active Vitamin D (Ergocalciferol) 1.25 MG (40701 UT) Oral Capsule (Drisdol) Take 1 capsule [...] yrs 06/29/2015,01/19/2015,01/19 Pneumococcal Conjugate Vacci ne, 20-valent (Szexwtt29) 06/27/2022 Pneumococcal Polysaccharide PPV23 (Pneumovax) 02/10/2007 Seasonal [...] 12/30/2024 3:10 AM EDMegan Gleason RN * Are you blind or do you have serious difficulty seeing, even when wearing glasses? Answer Date of Assessment Author No 12/30/2024 3:10 AM EDMegan Gleason RN * Do you have serious difficulty [...] 01/04/2025 7:45 AM EDT Pt seen by Gerry Avelar yesterday, had her SIM and is planning [...] as possible. Please call her back at [phone] documented in this encounter Plan of Treatment Upcoming Encounters Date Type Department Care Team (Latest Contact Info) Description 01/12/2025 2:00 PM EDT Office Visit Hematology/Oncolog y [facility] [address] [place] [phone] Eleuterio Zapata MD [address] [place] [address] 01/27/2025 8:00 AM EDT Office Visit Family Practice [facility] [address] [place] [address] Favian Castellon DO [address] [place] [address] 01/28/2025 1:46 PM EDT Hospital Encounter [facility], Operating Room OSHP [address] [place] [phone] Thom Palomino DO [address] [place] [phone] 01/28/2025 1:46 PM EDT - 01/28/2025 2:12 PM EDT Surgery [place] [facility], Operating Room O[facility] [address] [place] [phone] Thom Palomino DO [address] [place] [phone] INJECTION TRANSFORAMINAL EPIDURAL LUMBAR OR SACRAL 03/23/2025 8:00 AM EDT [facility] [address] [place] [address] [facility] [address] [place] [address] 03/24/2025 8:40 AM EDT Office Visit Neurology [facility] [address] [place] [address] Tanya Mcpherson MD [address] [place] [address], [place] [address] Scheduled Procedures Name Priority Associated Diagnoses Date/Ti [...] this encounter Medical Devices Implanted Type Area It Security Manager Device Identifier Shelf Expiration Date Model / Serial / Lot Lens 24.0 Mx60e - [id number] - [id number] Implanted:Qty : 1 on 04/30/2018 by Martin Donnelly MD at OR [facility] Left: Eye BAUSCH & LOMB 01/10/2021 DN92J-77.0 / [id number] / [id number] Mx60 +23.0d Implanted:Qty : 1 on 05/12/2018 by Martin Donnelly MD at OR [facility] Right: Eye 07/12/2020 OX1624.0 / [id number] / [id number] Duraclip 16mm Xlg Repostn - [id number] Implanted:Qty : 2 on 08/23/2022 by Sudhakar Martell MD at [facility] CONMED EJSSICA 11/28/2023 [id number] / / Port Implant W/8f Poly Cath - [id number] Implanted:Qty : 1 on 09/18/2023 by Marty Quispe Jr., MD at OR [facility] BARD : PERIPHERAL VASCULAR [id number] 03/12/2025 [id number] / / [id number] documented as of this encounter Visit Diagnoses [...] and were consensually agreed upon. Care Teams Skills Instructor Relationship Specialty Start Date End Date Favian Castellon DO [address] [place] [address] PCP - General Family Medicine 10/21/24 documented as of this encounter
--- OUTSIDE RECORDS SUMMARY | 2025-01-19 18:33 | External Medical Summary | Summary of Care ---
Author Name Unknown Organization [facility] Address [address] [facility] [place] [address] Phone [phone] Care Team Providers Care Remote Operations Producer Name Role Phone Favian Castellon Primary Care Provider Reason for Visit * Reason Onset Date Comments Precert In Process 01/04/2025 26 Kim Wolf Oxycodone Encounter Details Date Type Department Care Team (Late st Contact Info) Description 01/04/2025 Telephone Hematology/Oncology Sergio Zavala [place] [address] [place] [address] Services, Scheduling [address] [place] [address] Precert In Process (26 Kim Wolf Oxycodo... [...] 24 Active Vitamin D (Ergocalciferol) 1.25 MG (53507 UT) Oral Capsule (Drisdol) Take 1 capsule [...] mRNA, LNP-s, No Pre serve, 2-Dose Series ([employer]) 08/15/2021,01/23/2021,12/29/2020 Hepatitis B, 20+ yrs 06/29/2015,01/19/2015,01/19 Pneumococcal Conjugate Vacci ne, 20-valent (Msiuzuv37) 06/27/2022 Pneumococcal Polysaccharide PPV23 (Pneumovax) 02/10/2007 Seasonal [...] No 07/12/2024 Does the household have a [facility] source of income? (Household - [...] Rivero OSA - 01/05/2025 11:20 AM EDT [facility] Authorization Submission Submission Information: Medication: oxycodone 5 mg tab Portal used: [facility] Insurance: [facility] Authorization #/Macdonald: [id number] Kim Rivero Medication Recruiting Associate 01/05/2025.11:20 AM * Telephone Encounter - Debra [...] - 01/04/2025 4:49 PM EDT Vinicio from [facility] pharmacy calling stating they can not fill patient's oxycodone for more than 30 pills without a prior auth. Please call Vinicio at [phone] with any other questions documented in this encounter Plan of Treatment Upcoming Encounters Date Type Department Care Team (Latest Contact Info) Description 01/12/2025 2:00 PM EDT Office Visit Hematology/Oncolog [facility] [place] [address] [place] [address] Eleuterio Zapata MD 200 [facility] [place] [address] 01/27/2025 8:00 AM EDT Office Visit Family Practice [facility] [address] [place] [address] Favian Castellon, DO [address] [place] [address] 01/28/2025 1:46 PM EDT Hospital Encounter [place] [facility], Operating Room O[facility] [address] [place] [phone] Thom Palomino, DO [address] [place] [phone] 01/28/2025 1:46 PM EDT - 01/28/2025 2:12 PM EDT Surgery [place] [facility], Operating Room [facility] [address] [place] [phone] Thom Palomino, DO [address] [place] [phone] INJECTION TRANSFORAMINAL EPIDURAL LUMBAR OR SACRAL 03/23/2025 8:00 AM EDT Office Visit Pharmacy, [facility] [address] [address] [address] [facility] [place] [address] [address] [address] 03/24/2025 8:40 AM EDT Office Visit Neurology [place] Fariha Callahan 200 [facility] [place] [address] Tanya Mcpherson MD 200 [facility] [place] [address] Scheduled Procedures Name Priority Associated Diagnoses Date/Ti [...] this encounter Medical Devices Implanted Type Area Md Senior Research Scientist Device Identifier Shelf Expiration Date Model / Serial / Lot Lens 24.0 Mx60e - [id number] - [id number] Implanted:Qty : 1 on 04/30/2018 by Martin Donnelly MD at OR [facility] Left: Eye BAUSCH & LOMB 01/10/2021 NJ62G-24.0 / [id number] / [id number] Mx60 +23.0d Implanted:Qty : 1 on 05/12/2018 by Martin Donnelly MD at OR [facility] Right: Eye 07/12/2020 MO5019.0 / [id number] / [id number] Duraclip 16mm Xlg Repostn - [id number] Implanted:Qty : 2 on 08/23/2022 by Sudhakar Martell MD at [facility] CONMED JESSICA 11/28/2023 [id number] / / Port Implant W/8f Poly Cath - [id number] Implanted:Qty : 1 on 09/18/2023 by Marty Quispe Jr., MD at OR [facility] BARD : PERIPHERAL VASCULAR [id number] 03/12/2025 [id number] / / [id number] documented as of this encounter Advance Directives [...] and were consensually agreed upon. Care Teams Remote Operations Producer Relationship Specialty Start Date End Date Favian Castellon DO [address] [place] [address] PCP - General Family Medicine 10/21/24 documented as of this encounter
--- OUTSIDE RECORDS SUMMARY | 2025-01-19 18:33 | External Medical Summary | Summary of Care ---
Author Name Unknown Organization [facility] Address [address] [facility] [address] Phone [phone] Care Team Providers Care Employment Recruiter Name Role Phone CastellonGilbertojesús Sonhiwot Primary Care Provider Reason for Referral * Evaluate & Treat - Unlimited Visits (Within 10 days (routine)) - Authorized Specialty Diagnoses / Procedures Referred By Contamrik mercer Referred To Contact Hospice and Palliative Medicine / Palliative Medicine Diagnoses Breast carcinoma, female, right (HCC) Triple negative breast cancer (HCC) Eleuterio Zapata MD [address] [address] Phone: tel: fax: Referral ID Status Reason Start Date Expiration Date Visits Requested Visits Authorized [id number] Authorized Specialty Services Required 01/04/2025 999 999 [...] Hematology/Oncology [place] Fariha Callahan [address] [place] [phone] Eleuterio Zapata MD 200 [facility] [place] [address] Advice (Benny); Follow Up Allergies No known active allergiesdocumented as of this encounter (statuses as of 01/05/2025) Medications B-D Ultrafine III, 5MM, Pen MISC Use daily with insulin pen 1 Box Dosing Unit 11 02/01/20 16 Active aspirin 81 MG chewable tabletIndications: DM type 2, not at goal ([facility]) Take 1 Tab by mouth daily. with [...] goal of less than 8.0% ([facility]) Inject 5 units under the skin with [...] goal of less than 8.0% ([facility]),Esophageal dysphagia,Malignan t neoplasm of overlapping sites of [...] 24 Active Vitamin D (Ergocalciferol) 1.25 MG (95218 UT) Oral Capsule (Drisdol) Take 1 capsule [...] yrs 06/29/2015,01/19/2015,01/19 Pneumococcal Conjugate Vacci ne, 20-valent (Aihybkb52) 06/27/2022 Pneumococcal Polysaccharide PPV23 (Pneumovax) 02/10/2007 Seasonal [...] as possible. Please call her back at [phone] documented in this encounter Plan of Treatment Upcoming Encounters Date Type Department Care Team (Latest Contact Info) Description 01/12/2025 2:00 PM EDT Office Visit Hematology/Oncolog y [facility] [address] [place] [phone] Eleuterio Zapata MD [address] [place] [address] 01/27/2025 8:00 AM EDT Office Visit Family Practice [facility] [address] [place] [address] Favian Castellon DO [address] [place] [address] 01/28/2025 1:46 PM EDT Hospital Encounter [facility], Operating Room [facility] [address] [place] [phone] Thom Palomino DO [address] [place] [phone] 01/28/2025 1:46 PM EDT - 01/28/2025 2:12 PM EDT Surgery [facility], Operating Room [facility] [address] [place] [phone] Thom Palomino DO [address] [place] [phone] INJECTION TRANSFORAMINAL EPIDURAL LUMBAR OR SACRAL 03/23/2025 8:00 AM EDT [facility] [address] [place] [address] [facility] [address] [place] [address] 03/24/2025 8:40 AM EDT Office Visit Neurology [facility] [address] [place] [address] Tanya Mcpherson MD [address] [place] [address], [place] [address] Scheduled Procedures Name Priority Associated Diagnoses Date/Ti [...] this encounter Medical Devices Implanted Type Area Denial Management Representative Device Identifier Shelf Expiration Date Model / Serial / Lot Lens 24.0 Mx60e - [id number] - [id number] Implanted:Qty : 1 on 04/30/2018 by Martin Donnelly MD at OR [facility] Left: Eye BAUSCH [employer] LOMB 01/10/2021 [id number]-89.0 / [id number] / [id number] Mx60 +23.0d Implanted:Qty : 1 on 05/12/2018 by Martin Donnelly MD at OR [facility] Right: Eye 07/12/2020 [id number] / [id number] / [id number] Duraclip 16mm Xlg Repostn - [id number] Implanted:Qty : 2 on 08/23/2022 by Sudhakar Martell MD at [facility] CONMED JESSICA 11/28/2023 [id number] / / Port Implant W/8f Poly Cath - [id number] Implanted:Qty : 1 on 09/18/2023 by Marty Quispe Jr., MD at OR [facility] BARD : PERIPHERAL VASCULAR [id number] 03/12/2025 [id number] / / [id number] documented as of this encounter Visit Diagnoses [...] and were consensually agreed upon. Care Teams Employment Recruiter Relationship Specialty Start Date End Date Favian Castellon DO [address] [address] PCP - General Family Medicine 10/21/24 documented as of this encounter
--- OUTSIDE RECORDS SUMMARY | 2025-01-19 18:33 | External Medical Summary | Summary of Care ---
Author Name Unknown Organization [facility] Address [address] [facility] [place] [address] Phone [phone] Care Team Providers Care Supercalender Operator Helper Name Role Phone Favian Castellon Primary Care Provider Reason for Visit * Reason Onset Date Comments Medication Refill 01/04/2025 Encounter Details Date Type Department Care Team (Late st Contact Info) Description 01/04/2025 Refill Hematology/Oncology [facility] [place] 200 [facility] [place] [phone] Faisal Ly MD 200 [facility] [place] [address] Breast carcinoma, female, right (HCC)*; Metastasis to bone (HCC) Allergies No known active allergiesdocumented as [...] 24 Active Vitamin D (Ergocalciferol) 1.25 MG (86101 UT) Oral Capsule (Drisdol) Take 1 capsule [...] mRNA, LNP-s, No Pre serve, 2-Dose Series (HexaTech) 08/15/2021,01/23/2021,12/29/2020 Hepatitis B, 20+ yrs 06/29/2015,01/19/2015,01/19 Pneumococcal Conjugate Vacci ne, 20-valent (Lfydtnx20) 06/27/2022 Pneumococcal Polysaccharide PPV23 (Pneumovax) 02/10/2007 Seasonal [...] encounter Miscellaneous Notes * Telephone Encounter - Faisal Ly MD - 01/04/2025 4:36 PM EDT E-prescribed oxycodone * Telephone Encounter - Tonny Rojas RN - 01/04/2025 4:25 PM EDT Pended 5mg Oxycodone for 8/10 pain. PDMP reviewed per [place] regulations. No concerns. Last Script written by N/A # of tablets ordered 60 for 10 day supply Date script written 01/04/25 documented in this encounter Plan of Treatment Upcoming Encounters Date Type Department Care Team (Latest Contact Info) Description 01/12/2025 2:00 PM EDT Office Visit Hematology/Oncolog y [place] Fariha Callahan [address] [phone] Eleuterio Zapata MD [address] [address] 01/27/2025 8:00 AM EDT Office Visit Family Practice [facility] [address] [place] [address] Favian Castellon, DO [address] [place] [address] 01/28/2025 1:46 PM EDT Hospital Encounter [facility], Operating Room [facility] [address] [place] [phone] Thom Palomino, DO [address] [place] [phone] 01/28/2025 1:46 PM EDT - 01/28/2025 2:12 PM EDT Surgery [place] [facility], Operating Room [address] [phone] Thom Palomino, DO [address] [place] [phone] INJECTION TRANSFORAMINAL EPIDURAL LUMBAR OR SACRAL 03/23/2025 8:00 AM EDT Office Visit Pharmacy, [facility] [address] [place] [address] [facility] [address] [place] [address] 03/24/2025 8:40 AM EDT Office Visit Neurology [facility] [address] [place] [address] Tanya Mcpherson MD [address] [place] [address] Scheduled Procedures Name Priority Associated Diagnoses Date/Ti [...] this encounter Medical Devices Implanted Type Area Research Geologist Device Identifier Shelf Expiration Date Model / Serial / Lot Lens 24.0 Mx60e - [id number] - [id number] Implanted:Qty : 1 on 04/30/2018 by Martin Donnelly MD at OR [facility] Left: Eye BAUSCH & LOMB 01/10/2021 [id number]-75.0 / [id number] / [id number] Mx60 +23.0d Implanted:Qty : 1 on 05/12/2018 by Martin Donnelly MD at OR [facility] Right: Eye 07/12/2020 ZU4020.0 / [id number] / [id number] Duraclip 16mm Xlg Repostn - [id number] Implanted:Qty : 2 on 08/23/2022 by Sudhakar Martell MD at ENDOSCOPY [facility] CONMED JESSICA 11/28/2023 [id number] / / Port Implant W/8f Poly Cath - [id number] Implanted:Qty : 1 on 09/18/2023 by Marty Quispe Jr., MD at OR [facility] BARD : PERIPHERAL VASCULAR [id number] 03/12/2025 [id number] / / [id number] documented as of this encounter Visit Diagnoses [...] and were consensually agreed upon. Care Teams Supercalender Operator Helper Relationship Specialty Start Date End Date Favian Castellon DO [address] [place] [address] PCP - General Family Medicine 10/21/24 documented as of this encounter
--- OUTSIDE RECORDS SUMMARY | 2025-01-19 18:33 | External Medical Summary | Summary of Care ---
Author Name Unknown Organization [facility] Address [address] [facility] [place] [address] Phone [phone] Care Team Providers Care Injection Mold Tooling Technician Name Role Phone Favian Castellon Primary Care Provider Reason for Visit * Reason Onset Date Comments Precert In Process 01/04/2025 26 Kim Wolf Oxycodone Encounter Details Date Type Department Care Team (Late st Contact Info) Description 01/04/2025 Telephone Hematology/Oncology [address] [place] [address] [place] [phone] Services, Scheduling [address] [place] [address] Precert In Process (26 Kim Wolf Oxycodo... [...] 24 Active Vitamin D (Ergocalciferol) 1.25 MG (36355 UT) Oral Capsule (Drisdol) Take 1 capsule [...] mRNA, LNP-s, No Pre serve, 2-Dose Series (Gemidis) 08/15/2021,01/23/2021,12/29/2020 Hepatitis B, 20+ yrs 06/29/2015,01/19/2015,01/19 Pneumococcal Conjugate Vacci ne, 20-valent (Xbvdoey23) 06/27/2022 Pneumococcal Polysaccharide PPV23 (Pneumovax) 02/10/2007 Seasonal [...] No 07/12/2024 Does the household have a [employer] source of income? (Household - for ages [...] auth end date: 07/09/2025 Rx Insurance Info: [facility] Reference #: [email or web address] Rivero Medication Power Bender Operator 01/06/2025.11:43 AM * Telephone Encounter - Kim Rivero OSA - 01/05/2025 11:20 AM EDT [facility] Authorization Submission Submission Information: Medication: oxycodone 5 mg tab Portal used: [facility] Insurance: [facility] Authorization #/Macdonald: [id number] Kim Rivero Medication Power Bender Operator 01/05/2025.11:20 AM * Telephone Encounter - [...] - 01/04/2025 4:49 PM EDT Vinicio from [facility] pharmacy calling stating they can not fill patient's oxycodone for more than 30 pills without a prior auth. Please call Vinicio at [phone] with any other questions documented in this encounter Plan of Treatment Upcoming Encounters Date Type Department Care Team (Latest Contact Info) Description 01/12/2025 11:00 AM EDT Office Visit Palliative Medicine [place] 200 [facility] [place] [phone] Rakel Castillo MD [address] [place] [address] [place] [address] 01/12/2025 2:00 PM EDT Office Visit Hematology/Oncolog y [facility] [place] [address] [place] [phone] Eleuterio Zapata MD [address] [place] [address] 01/27/2025 8:00 AM EDT Office Visit Family Practice [facility] [address] [place] [address] Favian Castellon, DO [address] [place] [address] 01/28/2025 1:46 PM EDT Hospital Encounter [facility], Operating Room [facility] [address] [place] [phone] Thom Palomino, [address] [place] [phone] 01/28/2025 1:46 PM EDT - 01/28/2025 2:12 PM EDT Surgery [facility], Operating Room [facility] [address] [place] [phone] Thom Palomino, DO [address] [place] [phone] INJECTION TRANSFORAMINAL EPIDURAL LUMBAR OR SACRAL 03/23/2025 8:00 AM EDT Office Visit Pharmacy, [facility] [address] [place] [address] [facility] [address] [place] [address] 03/24/2025 8:40 AM EDT Office Visit Neurology [facility] [address] [place] [address] Tanya Mcpherson MD [address] [place] [address] Scheduled Procedures Name Priority Associated Diagnoses Date/Ti [...] encounter Medical Devices Implanted Type Area Public Policy Coordinator Device Identifier Shelf Expiration Date Model / Serial / Lot Lens 24.0 Mx60e - [id number] - [id number] Implanted:Qty : 1 on 04/30/2018 by Martin Donnelly MD at OR [facility] Left: Eye BAUSCH & LOMB 01/10/2021 VX54P-97.0 / [id number] / [id number] Mx60 +23.0d Implanted:Qty : 1 on 05/12/2018 by Martin Donnelly MD at OR [facility] Right: Eye 07/12/2020 RG3027.0 / [id number] / [id number] Duraclip 16mm Xlg Repostn - [id number] Implanted:Qty : 2 on 08/23/2022 by Sudhakar Martell MD at [facility] CONMED JESSICA 11/28/2023 [id number] / / Port Implant W/8f Poly Cath - [id number] Implanted:Qty : 1 on 09/18/2023 by Marty Quispe Jr., MD at [facility] BARD : PERIPHERAL VASCULAR [id number] 03/12/2025 [id number] / / [id number] documented as of this encounter Advance Directives [...] and were consensually agreed upon. Care Teams Injection Mold Tooling Technician Relationship Specialty Start Date End Date Favian Castellon DO [address] [place] [address] PCP - General Family Medicine 10/21/24 documented as of this encounter
--- OUTSIDE RECORDS SUMMARY | 2025-01-19 18:33 | External Medical Summary | Summary of Care ---
Author Name Unknown Organization [facility] Address [address] [facility] [place] [address] Phone [phone] Care Team Providers Care Warehouse Person Name Role Phone Favian Castellon Primary Care Provider Reason for Visit * Reason Onset Date Comments Precert In Process 01/04/2025 26 Kim Wolf Oxycodone Encounter Details Date Type Department Care Team (Late st Contact Info) Description 01/04/2025 Telephone Hematology/Oncology [place] [address] [place] [address] Services, Scheduling [address] [place] [address] Precert In Process (26 Kim Wolf Oxycodo... [...] 24 Active Vitamin D (Ergocalciferol) 1.25 MG (28503 UT) Oral Capsule (Drisdol) Take 1 capsule [...] mRNA, LNP-s, No Pre serve, 2-Dose Series (NexMed) 08/15/2021,01/23/2021,12/29/2020 Hepatitis B, 20+ yrs 06/29/2015,01/19/2015,01/19 Pneumococcal Conjugate Vacci ne, 20-valent (Nclsfxa00) 06/27/2022 Pneumococcal Polysaccharide PPV23 (Pneumovax) 02/10/2007 Seasonal [...] No 07/12/2024 Does the household have a [facility] source of income? (Household - [...] Rivero OSA - 01/05/2025 11:20 AM EDT [facility] Authorization Submission Submission Information: Medication: oxycodone 5 mg tab Portal used: [facility] Insurance: [facility] Authorization #/Macdonald: [id number] Kim Rivero Medication Can Tender 01/05/2025.11:20 AM * Telephone Encounter - Debra [...] - 01/04/2025 4:49 PM EDT Vinicio from [facility] pharmacy calling stating they can not fill patient's oxycodone for more than 30 pills without a prior auth. Please call Vinicio at [phone] with any other questions documented in this encounter Plan of Treatment Upcoming Encounters Date Type Department Care Team (Latest Contact Info) Description 01/12/2025 2:00 PM EDT Office Visit [facility] [address] [place] [phone] Eleuterio Zapata MD 200 [facility] [place] [address] 01/27/2025 8:00 AM EDT Office Visit Family Practice [facility] [address] [place] [address] Favian Castellon, DO [address] [place] [address] 01/28/2025 1:46 PM EDT Hospital Encounter [facility], Operating Room [facility] [address] [place] [phone] Thom Palomino, DO [address] [place] [phone] 01/28/2025 1:46 PM EDT - 01/28/2025 2:12 PM EDT Surgery [facility], Operating Room [facility] [address] [place] [phone] Thom Palomino, DO [address] [place] [phone] INJECTION TRANSFORAMINAL EPIDURAL LUMBAR OR SACRAL 03/23/2025 8:00 AM EDT Office Visit Pharmacy, [facility] [address] [place] [address] [facility] [place] [address] [place] [address] 03/24/2025 8:40 AM EDT Office Visit Neurology [place] 200 [facility] [place] [address] Tanya Mcpherson MD 200 [facility] [place] [address] Scheduled Procedures Name Priority Associated Diagnoses Date/Ti [...] this encounter Medical Devices Implanted Type Area Fisheries Biologist Device Identifier Shelf Expiration Date Model / Serial / Lot Lens 24.0 Mx60e - [id number] - [id number] Implanted:Qty : 1 on 04/30/2018 by Martin Donnelly MD at OR [facility] Left: Eye BAUSCH & LOMB 01/10/2021 FM86H-88.0 / [id number] / [id number] Mx60 +23.0d Implanted:Qty : 1 on 05/12/2018 by Martin Donnelly MD at OR [facility] Right: Eye 07/12/2020 PG6987.0 / [id number] / [id number] Duraclip 16mm Xlg Repostn - [id number] Implanted:Qty : 2 on 08/23/2022 by Sudhakar Martell MD at [facility] CONMED JESSICA 11/28/2023 [id number] / / Port Implant W/8f Poly Cath - [id number] Implanted:Qty : 1 on 09/18/2023 by Marty Quispe Jr., MD at OR [facility] BARD : PERIPHERAL VASCULAR [id number] 03/12/2025 [id number] / / [id number] documented as of this encounter Advance Directives [...] were consensually agreed upon. Care Teams Warehouse Person Relationship Specialty Start Date End Date Favian Castellon DO [address] [place] [address] PCP - General Family Medicine 10/21/24 documented as of this encounter
--- OUTSIDE RECORDS SUMMARY | 2025-01-19 18:34 | External Medical Summary | Summary of Care ---
Author Name Unknown Organization [facility] Address [address] [facility] [place] [address] Phone [phone] Care Team Providers Care Mixing Engineer Name Role Phone Gilberto Castellonr Fran Primary Care Provider Encounter Details Date Type Department Care Team (Late st Contact Info) Description 12/29/2024 Orders Only Neurology, [place] [address] [place] [address] Prosper Jeronimo DO [address] [place] [address] Allergies No known active allergiesdocumented as of this encounter (statuses as of 12/31/2024) Medications B-D Ultrafine III, 5MM, Pen MISC Use daily with insulin pen 1 Box Dosing Unit 11 02/01/20 16 Suspended aspirin 81 MG chewable tabletIndications :DM type 2, 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 with food. 100 Tab 5 02/27/20 16 Suspended Insulin Pen Needle 31G X 5 MM Use with Lantus and Novolog 4 times a day. Can substitute for preferred brand Dx E11.9 400 Each 3 01/19/20 22 Suspended Levothyroxine Sodium 100 MCG Oral TabletIndications :Acquired hypothyroidism TAKE 1 TABLET BY MOUTH ONCE DAILY 30 MINUTES BEFORE BREAKFAST OR OTHER MEDICATIONS 90 Tablet 3 02/24/20 24 Suspended Miebo 1.338 GM/ML Ophthalmic Solution INSTILL ONE DROP INTO BOTH EYES FOUR TIMES DAILY . BOTTLE PREPARATION IS REQUIRED. REFER TO PACKAGE INSERT FOR SPECIAL PREPARATION AND ADMIN 02/19/20 24 Suspended Alendronate Sodium 70 MG Oral Tablet (Fosamax) Take 1 Tablet by mouth once a week. with 8 oz. water 30 minutes before first meal of the day. Remain upright for 30 min after taking tablet. 15 Tablet 5 02/26/20 24 Suspended Dexcom G7 Sensor USE TO TEST BLOOD SUGAR 3 Each 11 03/10/20 24 Suspended NovoLOG FlexPen 100 UNIT/ML Subcutaneous Solution Pen-injector (insulin aspart)Indication s:Type 2 diabetes mellitus with hemoglobin A1c goal of less than 8.0% (HCC) Inject 5 units under the skin with breakfast, 15 units at lunch, and 23 units at supper plus CF of 7 units with lunch and dinner if blood sugar >220 max 60 units/day 60 mL 2 03/25/20 24 Suspended Acetaminophen 500 MG Oral Tablet (Tylenol)Indicati ons:H/O [...] for 3 days 18 Tablet 07/13/20 24 Suspended Ondansetron HCl 4 MG Oral TabletIndications :H/O [...] after surgery. 30 Tablet 1 07/13/20 24 Suspended Additional Information Patient not taking.Reported on 10/21/2024 Vitamin D (Ergocalciferol) 1.25 MG (54688 UT) Oral Capsule (Drisdol) Take 1 capsule by mouth once a week 12 Capsule 08/19/20 24 Suspended Atenolol 25 MG Oral Tablet (Tenormin)Indicat ions:HTN, goal below 130/80 TAKE 1 TABLET BY MOUTH IN THE MORNING 90 Tablet 3 09/11/20 24 Suspended Furosemide 20 MG Oral Tablet (Lasix)Indication s:Localized edema TAKE 1 TABLET BY MOUTH TWICE DAILY NEEDED FOR FEET SWELLING, FLUID ACCUMULATION OR WEIGHT GAIN 180 Tablet 1 09/11/20 24 Suspended Mounjaro 12.5 MG/0.5ML Subcutaneous Solution Auto-injector (Tirzepatide) Inject 12.5 mg under the skin once a week. 6 mL 3 09/15/20 24 025 Suspended Losartan Potassium-HCTZ 100-25 MG Oral Tablet (Hyzaar)Indicatio ns:HTN, goal below 130/80 Take 1 tablet by mouth once daily 90 Tablet 2 10/12/20 24 Suspended Atorvastatin Calcium 80 MG Oral Tablet (Lipitor) Take 1 tablet by mouth once daily 90 Tablet 2 10/12/20 24 Suspended Insulin Glargine Solostar 100 UNIT/ML Subcutaneous Solution Pen-injector (Lantus SoloStar) Inject 33 Units under the skin at bedtime. 30 mL 5 12/16/19 25 Suspended dexAMETHasone 4 MG Oral Tablet (Decadron)Indicat ions:Breast carcinoma, female, right (HCC) Take 1 Tablet by mouth in the morning and 1 Tablet before bedtime. 20 Tablet 12/30/19 25 Suspended documented as of this encounter (statuses as of 12/31/2024) Active Problems Problem Noted Date Diagnosed Date Epileptic seizure 12/30/2024 Breast cancer metastasized to brain, left 2024 Triple negative breast cancer 12/30/2024 Neoplasm related pain 12/30/2024 Other constipation 12/30/2024 Nausea and vomiting 12/30/2024 Palliative care encounter 12/30/2024 Goals of [...] as of this encounter (statuses as of 12/31/2024) Resolved Problems Problem Noted Date Diagnosed Date Resolved Date History of morbid obesity 10/30/2023 Class 1 [...] as of this encounter (statuses as of 12/31/2024) Immunizations Name Administration Dates Next Due COVID-19 mRNA, LNP-s, No Pre serve, 2-Dose Series ([employer]) 08/15/2021,01/23/2021,12/29/2020 Hepatitis B, 20+ yrs 06/29/2015,01/19/2015,01/19 Pneumococcal Conjugate Vacci ne, 20-valent ([id number]) 06/27/2022 Pneumococcal Polysaccharide PPV23 (Pneumovax) 02/10/2007 Seasonal [...] PM EDT Office Visit Hematology/Oncolog y [facility] [address] [place] [phone] Eleuterio Zapata MD [address] [place] [address] 01/27/2025 8:00 AM EDT Office Visit Family Practice [facility] [address] [place] [address] Favian Castellon, DO [address] [place] [address] 01/28/2025 1:46 PM EDT Hospital Encounter [facility] [address] [place] [address] [place] [address] Thom Palomino, DO [address] [place] [phone] 01/28/2025 1:46 PM EDT - 01/28/2025 2:12 PM EDT Surgery [facility], Operating Room [facility] [address] [place] [address] [place] [address] Thom Palomino DO [address] [place] [phone] INJECTION TRANSFORAMINAL EPIDURAL LUMBAR OR SACRAL 03/23/2025 8:00 AM EDT Office Visit Pharmacy, [facility] [address] [place] [address] [facility] [address] [place] [address] 03/24/2025 8:40 AM EDT Office [facility] [address] [place] [address] Tanya Mcpherson MD [address] [place] [address] Scheduled Procedures Name Priority Associated Diagnoses Date/Ti me INJECTION TRANSFORAMINAL EPIDURAL LUMBAR OR SACRAL Lumbar radiculopathy 01/28/2025 1:46 PM EDT COLONOSCOPY FLEXIBLE PROXIMAL DIAGNOSTIC Recall History of colon polyps Health Maintenance Due Date Last Done Comments Cologuard 2002 Fecal Occult Blood Test 2002 Sigmoidoscopy 2002 Depression Monitoring 10/29/2023 10/29/2022 COVID-19 Vaccine ( season) 2024 08/15/2021, 01/23/2021, 12/29/2020 Diabetic Eye Exam 11/13/2024 11/13/2023, , 02/15/2021, Additional history exists TSH 01/21/2025 01/22/2024, 12/12, 06/26/2022, Additional history exists Diabetic Foot Exam 06/29/2025 06/29/2024, 0 05/13/2023, 04/23/2022, Additional history exists Colonoscopy 08/23/2025 08/23/2022, 08/13, 07/20/2019, Additional history exists Colorectal Cancer Screening 08/23/2025 DXA Scan 12/18/2025 12/18/2022, 10/02/2018 Lipid Panel 11/20/2028 11/20/2023, 12/12, 06/26/2022, Additional history exists DTap/Tdap Vaccines (4 - Td or Tdap) 06/03/2034 06/03/2024, 03/16/2019, 12/26/2008 Hepatitis B Vaccine Completed 06/29/2015, 01/19/2015, 01/19/2014 *NEPHROLOGY REFERRAL DUE TO RESISTANT HTN Addressed 04/27/2018 (Not indicated) Overridden with the intention of not completing the topic Pap Smear Discontinued 09/19/2020, 0610/2016, 09/25/2012, Additional history exists Zoster Vaccines Completed 04/23/2022, 10/25/2021 Pneumococcal Vaccine: 50+ Years Completed 06/27/2022, 02/10/2007 Albumin/Creatinine Ratio Discontinued 024, 01/07/2023, 06/26/2022, Additional history exists Influenza Vaccine (FLU shot) Completed 06/29/2024, 09/03/2023, 10/13/2022, Additional history exists HPV (Gardasil) Vaccine Aged Out No lo nger eligible based on patient's age to complete this topic MENINGOCOCCAL (MENACTRA/MENVEO) Aged Out No longer eligible based on patient's age to complete this topic Meningitis B Vaccine (Bexsero/Trumemba) Aged Out No longer eligible based on patient's age to complete this topic documented as of this encounter Medical Devices Implanted Type Area Client Support Coordinator Device Identifier Shelf Expiration Date Model / Serial / Lot Lens 24.0 Mx60e - [id number] - [id number] Implanted:Qty : 1 on 04/30/2018 by Martin Donnelly MD at OR [facility] Left: Eye [employer] LOMB 01/10/2021 [id number] / [id number] / [id number] Mx60 +23.0d Implanted:Qty : 1 on 05/12/2018 by Martin Donnelly MD at OR [facility] Right: Eye 07/12/2020 HO5424.0 / [id number] / [id number] Duraclip 16mm Xlg Repostn - [id number] Implanted:Qty : 2 on 08/23/2022 by Sudhakar Martell MD at ENDOSCOPY [facility] CONMED JESSICA 11/28/2023 [id number] / / Port Implant W/8f Poly Cath - [id number] Implanted:Qty : 1 on 09/18/2023 by Marty Quispe Jr., MD at OR [facility] BARD : PERIPHERAL VASCULAR [id number] 03/12/2025 [id number] / / [id number] documented as of this encounter Procedures Procedure Name Priority Date/Time Associated Diagnosis Comments RADIOLOGY EXAM - CT (IMAGES ONLY, NO REPORT) Routine 12/29/2024 9:00 PM EDT documented in this encounter Results * RADIOLOGY EXAM - CT (IMAGES ONLY, NO REPORT) (12/29/2024 9:00 PM EDT) 12/29/2024 9:00 PM EDT Narrative Scheduling, Silent - 12/31/2024 9:31 AM EDT This is an imaging study not interpreted or resulted by a [facility] or [employer] contracted radiologist. Prosper REDD CT Final Result documented in this encounter Advance Directives * Full Code (Latest Code Status on File) Date Activated Date Inactivated Comments 12/30/2024 2:44 AM This order ref lects the patients wishes and were consensually agreed [...] and were consensually agreed upon. Care Teams Mixing Engineer Relationship Specialty Start Date End Date Favian Castellon DO [address] [place] [address] PCP - General Family Medicine 10/21/24 documented as of this encounter
--- OUTSIDE RECORDS SUMMARY | 2025-01-19 18:34 | External Medical Summary | Summary of Care ---
Author Name Unknown Organization [facility] Address [address] [facility] [place] [address] Phone [phone] Care Team Providers Care Scanner Operator Name Role Phone Favian Castellon Primary Care Provider Reason for Visit * Reason Onset Date Comments Appointment 12/29/2024 Rad Onc Encounter Details Date Type Department Care Team (Late st Contact Info) Description 12/29/2024 Telephone Hematology/Oncology [facility] [place] [address] [place] [address] Eleuterio Zapata MD 200 [place] [address] Appointment (Rad Onc) Allergies No known active allergiesdocumented as of [...] for nausea after surgery. 30 Tablet 1 10/01/20 24 Suspended Additional Information Patient not taking.Reported on 10/21/2024 Vitamin D (Ergocalciferol) 1.25 MG (09733 UT) Oral Capsule (Drisdol) Take 1 capsule [...] yrs 06/29/2015,01/19/2015,01/19 Pneumococcal Conjugate Vacci ne, 20-valent ([id number]) 06/27/2022 Pneumococcal Polysaccharide PPV23 (Pneumovax) 02/10/2007 Seasonal [...] encounter Miscellaneous Notes * Telephone Encounter - Peng Purdy OSA - 12/31/2024 10:37 AM EDT Images pushed to [facility] as requested. * Telephone Encounter - Debra Robles RN - 12/31/2024 8:46 AM EDT Patient admitted in [place]. Radiology: can you please push MRI images from 12/30/24 to [facility]? Thanks! * Telephone Encounter - Tonny Rojas RN - 12/29/2024 4:53 PM EDT Sent TT to [facility] Rad Onc to see if patient can be seen for follow up prior to office visit with Dr. Zapata on 01/12. She is having Brain MRI completed tomorrow, will need to push images to [facility] system for them to review as well. documented in this encounter Plan of Treatment Upcoming Encounters Date Type Department Care Team (Latest Contact Info) Description 01/12/2025 2:00 PM EDT Office Visit Hematology/Oncolog y [facility] [address] [place] [phone] Eleuterio Zapata MD [address] [place] [address] 01/27/2025 8:00 AM EDT Office Visit Family Practice [facility] [address] [place] [address] Favian Castellon DO [address] [place] [address] 01/28/2025 1:46 PM EDT Hospital Encounter [facility], Operating Room [facility] [address] [place] [phone] Thom Palomino, [address] [place] [phone] 01/28/2025 1:46 PM EDT - 01/28/2025 2:12 PM EDT Surgery [facility], Operating Room [facility] [address] [place] [phone] Thom Palomino DO [address] [place] [phone] INJECTION TRANSFORAMINAL EPIDURAL LUMBAR OR SACRAL 03/23/2025 8:00 AM EDT Office Visit [facility] [address] [place] [address] [facility] [address] [place] [address] 03/24/2025 8:40 AM EDT Office Visit Neurology [facility] [address] [place] [address] Tanya Mcpherson MD 200 [facility], [place] [address] Scheduled Procedures Name Priority Associated Diagnoses Date/Ti [...] completing the topic Pap Smear Discontinued 09/19/2020, 06/0 10/2016, 09/25/2012, [...] this encounter Medical Devices Implanted Type Area Desulfurizer Operator Device Identifier Shelf Expiration Date Model / Serial / Lot Lens 24.0 Mx60e - [id number] - [id number] Implanted:Qty : 1 on 04/30/2018 by Martin Donnelly MD at OR [facility] Left: Eye [employer]CH [employer] LOMB 01/10/2021 [id number]-55.0 / [id number] / [id number] Mx60 +23.0d Implanted:Qty : 1 on 05/12/2018 by Martin Donnelly MD at OR [facility] Right: Eye 07/12/2020 OW1042.0 / [id number] / [id number] Duraclip 16mm Xlg Repostn - [id number] Implanted:Qty : 2 on 08/23/2022 by Sudhakar Martell MD at ENDOSCOPY [facility] CONMED JESSICA 11/28/2023 [id number] / / Port Implant W/8f Poly Cath - [id number] Implanted:Qty : 1 on 09/18/2023 by Marty Quispe Jr., MD at OR [facility] BARD : PERIPHERAL VASCULAR [id number] 03/12/2025 [id number] / / [id number] documented as of this encounter Advance Directives [...] and were consensually agreed upon. Care Teams Scanner Operator Relationship Specialty Start Date End Date Favian Castellon DO [address] [place] [address] PCP - General Family Medicine 10/21/24 documented as of this encounter
--- OUTSIDE RECORDS SUMMARY | 2025-01-19 18:34 | External Medical Summary | Summary of Care ---
Author Name Unknown Organization [facility] Address [address] [facility] [place] [place] [address] Phone [phone] Care Team Providers Care Anesthesia Attending Name Role Phone Favian Castellon Primary Care Provider Reason for Visit * Reason Onset Date Comments Advice 12/31/2024 Benny Encounter Details Date Type Department Care Team (Late st Contact Info) Description 12/31/2024 Telephone Hematology/Oncology, [facility] [address] [place] [address] Benny, Eleuterio Perez MD [address] [place], [place] [phone] Advice (Benny) Allergies No known active allergiesdocumented as of [...] 24 Active Vitamin D (Ergocalciferol) 1.25 MG (19575 UT) Oral Capsule (Drisdol) Take 1 capsule [...] 2:28 PM EDT 01/02/20 25 025 Active documented as of this encounter (statuses as of 12/31/2024) Active Problems Problem Noted Date Diagnosed Date Brain mass 12/31/2024 Breast cancer metastasized to brain, left 03/20/ 2025 Triple negative breast cancer 12/30/2024 Palliative care [...] mRNA, LNP-s, No Pre serve, 2-Dose Series ([employer]) 08/15/2021,01/23/2021,12/29/2020 Hepatitis B, 20+ yrs 06/29/2015,01/19/2015,01/19 Pneumococcal Conjugate Vacci ne, 20-valent ([id number]) 06/27/2022 Pneumococcal Polysaccharide PPV23 (Pneumovax) 02/10/2007 Seasonal [...] Assessment Author No 12/30/2024 3:10 AM Megan Daniels, RN * Because of a physical, mental, [...] Encounter - Debra Robles RN - 12/31/2024 4:05 PM EDT Per chart review, oncology met with patient after patient called office to discuss plan. * Telephone Encounter - Pari Medina OSA - 12/31/2024 2:12 PM EDT Patient calling insisting to speak to a nurse said she is about to be released from the hospital does not want to be released until she knows what her hem/onc plan of care is going to be and noone knows there. documented in this encounter Plan of Treatment Upcoming Encounters Date Type Department Care Team (Latest Contact Info) Description 01/12/2025 2:00 PM EDT Office Visit Hematology/Oncolog y [facility] [place] [address] [place] [phone] Eleuterio Zapata MD [address] [place] [address] 01/27/2025 8:00 AM EDT Office Visit [facility] [address] [place] [address] Favian Castellon DO [address] [place] [address] 01/28/2025 1:46 PM EDT Hospital Encounter [facility], Operating Room [facility] [address] [place] [phone] Thom Palomino, DO [address] [place] [phone] 01/28/2025 1:46 PM EDT - 01/28/2025 2:12 PM EDT Surgery [facility], Operating Room [facility] [address] [place] [phone] Thom Palomino, DO [address] [place] [phone] INJECTION TRANSFORAMINAL EPIDURAL LUMBAR OR SACRAL 03/23/2025 8:00 AM EDT Office Visit Pharmacy, [facility] [address] [place] [address] [facility] [address] [place] [address] 03/24/2025 8:40 AM EDT Office Visit Neurology [facility] 200 [facility] [address] Tanya Mcpherson MD [address] [facility] [place] [address] Scheduled Procedures Name Priority Associated Diagnoses Date/Ti me INJECTION TRANSFORAMINAL EPIDURAL LUMBAR OR SACRAL Lumbar radiculopathy 01/28/2025 1:46 PM EDT COLONOSCOPY FLEXIBLE PROXIMAL DIAGNOSTIC Recall History of colon polyps Health Maintenance Due Date Last Done Comments Depression Monitoring 10/29/2023 10/29/2022 COVID-19 Vaccine ( season) 2024 08/15/2021, 01/23/2021, 12/29/2020 TSH 01/21/2025 01/22/2024, 12/12, 06/26/2022, Additional history exists DXA Scan 12/18/2025 12/18/2022, 10/02/2018 *NEPHROLOGY REFERRAL DUE TO RESISTANT HTN Addressed [...] this encounter Medical Devices Implanted Type Area Editor City Device Identifier Shelf Expiration Date Model / Serial / Lot Lens 24.0 Mx60e - [id number] - [id number] Implanted:Qty : 1 on 04/30/2018 by Martin Donnelly MD at OR [facility] Left: Eye BAUSCH [employer] LOMB 01/10/2021 [id number]-27.0 / [id number] / [id number] Mx60 +23.0d Implanted:Qty : 1 on 05/12/2018 by Martin Donnelly MD at OR [facility] Right: Eye 07/12/2020 SD3609.0 / [id number] / [id number] Duraclip 16mm Xlg Repostn - [id number] Implanted:Qty : 2 on 08/23/2022 by Sudhakar Martell MD at ENDOSCOPY [facility] CONMED JESSICA 11/28/2023 [id number] / / Port Implant W/8f Poly Cath - [id number] Implanted:Qty : 1 on 09/18/2023 by Marty Quispe Jr., MD at OR [facility] BARD : PERIPHERAL VASCULAR [id number] 03/12/2025 [id number] / / [id number] documented as of this encounter Advance Directives [...] and were consensually agreed upon. Care Teams Anesthesia Attending Relationship Specialty Start Date End Date Favian Castellon DO [address] [place] [address] PCP - General Family Medicine 10/21/24 documented as of this encounter
--- OUTSIDE RECORDS SUMMARY | 2025-01-19 18:34 | External Medical Summary | Summary of Care ---
Author Name Unknown Organization [facility] Address [address] [place] [address] Phone [phone] Care Team Providers Care Journal Box Inspector Name Role Phone Lesly Castellon DO Primary Care Provider Reason for Referral * Evaluate & Treat - Unlimited Visits (Within 3 days (urgent)) - Authorized Specialty Diagnoses / Procedures Referred By Contac t Referred To Contact Occupational Medicine / Occupational Therapy Diagnoses Brain mass Triple negative breast cancer (HCC) Jason Sheppard DO [address] [place] [address] Phone: tel: fax: Referral ID Status Reason Start Date Expiration Date Visits Requested Visits Authorized [id number] Authorized Specialty Services Required 12/31/2024 [id number] Question Answer Referral Priority Within 3 days (urgent) Where should this appointment be scheduled? [facility] Comments Discharge Order * Evaluate & Treat - Unlimited Visits (Within 3 days (urgent)) - Authorized Specialty Diagnoses / Procedures Referred By Contac t Referred To Contact Physical Therapy / Physical Medicine And Rehab Diagnoses Brain mass Triple negative breast cancer (HCC) Jason Sheppard DO [address] [place] [address] Phone: tel: fax: Referral ID Status Reason Start Date Expiration Date Visits Requested Visits Authorized [id number] Authorized Specialty Services Required 12/31/2024 999 [id number] Question Answer Referral Priority Within 3 days (urgent) Where should this appointment be scheduled? [facility] Comments Discharge Order Reason for Visit * Auth/Cert Specialty Diagnoses / Procedures Referred By Suellen mercer Referred To Contact Diagnoses Status epilepticus (HCC) Status Epilepticus Eduardo Ly MD [address] [place] [address] Phone: tel: fax: Admissions, [facility] [address] [place] [address] Referral ID Status Reason Start Date Expiration Date Visits Re quested Visits Authorized [id number] Encounter Details Date Type Department Care Team (Latest Contact Info) Description 12/30/2024 2:43 AM EDT - 12/31/2024 5:10 PM EDT Hospital Encounter NSICU [facility], Neuroscience Intensive Care Unit, [place] 4th Floor [address] [id number] Eduardo Ly MD [address], [place] [id number] Bridgett Summers MD [address], [place] [id number] Pt Handout (on AVS) Discharge Disposition: Home - Self Care Allergies No known active allergiesdocumented as of this encounter (statuses as of 01/01/2025) Medications B-D Ultrafine III, 5MM, Pen MISC Use daily with insulin pen 1 Box Dosing Unit 11 016 Active aspirin 81 MG chewable tabletIndications :DM type 2, not at goal ([facility]) Take 1 Tab by mouth daily. with [...] 024 Active Vitamin D (Ergocalciferol) 1.25 MG (64507 UT) Oral Capsule (Drisdol) Take 1 capsule by mouth once a week 12 Capsule 024 Active Atenolol 25 MG Oral Tablet (Tenormin)Indicat [...] 60 Tablet 01/01/20 25 2:28 PM EDT 2024 Active dexAMETHasone 4 MG Oral Tablet (Decadron) Take 1 Tablet by mouth in the morning and 1 Tablet at noon and 1 Tablet before bedtime. Do all this for 20 days. 60 Tablet 025 2024 Active Sennosides 8.6 MG Oral Tablet (Senokot) Take 1 Tablet by mouth in the morning and 1 Tablet before bedtime. Do all this for 14 days. 28 Tablet 01/01/20 25 2:28 PM EDT 2024 Active Omeprazole 20 MG Oral Capsule Delayed Release (PriLOSEC) Take 1 Capsule by mouth in the morning for 14 days. 14 Capsule 01/01/20 25 2:28 PM EDT 2024 Active Miebo 1.338 GM/ML Ophthalmic Solution INSTILL ONE DROP INTO BOTH EYES FOUR TIMES DAILY . BOTTLE PREPARATION IS REQUIRED. REFER TO PACKAGE INSERT FOR SPECIAL PREPARATION AND ADMIN 2024 Discontinued Furosemide 20 MG Oral Tablet (Lasix)Indication s:Localized edema TAKE 1 TABLET BY MOUTH TWICE DAILY NEEDED FOR FEET SWELLING, FLUID ACCUMULATION OR WEIGHT GAIN 180 Tablet 1 024 2024 Discontinued dexAMETHasone 4 MG Oral Tablet (Decadron)Indicat ions:Breast carcinoma, female, right (HCC) Take 1 Tablet by mouth in the morning and 1 Tablet before bedtime. 20 Tablet 025 2024 Discontinued documented as of this encounter (statuses as of 01/01/2025) Active Problems Problem Noted Date Diagnosed Date [...] as of this encounter (statuses as of 01/01/2025) Resolved Problems Problem Noted Date Diagnosed Date [...] as of this encounter (statuses as of 01/01/2025) Immunizations Name Administration Dates Next Due COVID-19 mRNA, LNP-s, No Pre serve, 2-Dose Series (PandaDoc) 08/15/2021,01/23/2021,12/29/2020 Hepatitis B, 20+ yrs 06/29/2015,01/19/2015,01/19 Pneumococcal Conjugate Vacci ne, 20-valent ([id number]) 06/27/2022 Pneumococcal Polysaccharide PPV23 (Pneumovax) 02/10/2007 Seasonal [...] No 07/12/2024 Does the household have a [facility] source of income? (Household - for ages [...] Sign Reading Time Taken Comments Blood Pressure 123/79 12/31/2024 3:00 PM EDT Pulse 83 12/31/2024 3:00 PM EDT Temperature 36.4 °C (97.5 °F) 12/31/2024 2:00 PM ED T Respiratory Rate 18 12/31/2024 3:00 PM EDT Oxygen Saturation 98% 12/31/2024 3:00 PM EDT Inhaled Oxygen Concentration - - Weight 66.3 kg (146 lb 2.6 oz) 12/31/2024 6:00 A M EDT Height 152.4 cm (5') 12/30/2024 3:10 AM EDT Body Mass Index 28.55 12/30/2024 3:10 AM EDT documented in this [...] Megan Bui RN documented in this encounter Discharge Summaries * Jason Sheppard DO - 12/31/2024 4:00 PM EDT [address] [place] [address] Admission Date: 12/30/2024 Discharge Date: 12/31/2024 RECOMMENDED TO DO FOR NEXT PROVIDER(S): Dr. Lesly Castellon DO (or Covering PCP), Patient was seen at [facility] for neurological monitoring on EEG and evaluation for seizures REASON(S) FOR MEDICATION CHANGE(S): Started on Keppra for seizures Started on Dexamethasone for vasogenic edema from tumors Started on Omeprazole for steroids above DISPOSITION ON DISCHARGE: home DISCHARGE DIAGNOSES: Active Hospital Problems Diagnosis *Principal Diagnosis - Breast cancer metastasized to brain, left (HCC) Brain mass Triple negative breast cancer (HCC) Palliative care encounter Goals of care, counseling/discussion Resolved Hospital Problems Diagnosis Date Resolved Epileptic seizure (HCC) 12/31/2024 Neoplasm related pain 12/31/2024 Other constipation 12/31/2024 Nausea and vomiting 12/31/2024 ADMISSION HISTORY & PHYSICAL EXAM (focused): Aixa is a 69 y/o female with a PMH significant for depression, anxiety, DLD, hypothyroidism, DM, essential tremor, HTN, lumbar degenerative disc disease, obesity, breast cancer with mets to the lung, brain and bone. Aixa presented to [facility]'s ED with for evaluation of seizure like activity. While in the ED the patient was reported to have another seizure. She has no prior history of seizures and is not on any AEDs. She is being transferred to [facility] for neurological services. At the time of her ICU arrival the patient is alert and oriented to person, place and event. She explained that she was at [employer] study tonight went she started to "feel off" noting that she couldn't figure out how to get out of her car. She denied headache, motor or visual deficits. Her then took her to the ED for evaluation. At the time of my assessment the patient is complaint free and neurologically intact. ACTIVE HOSPITAL PROBLEMS: Principal Problem: Breast cancer metastasized to brain, left (HCC) Active Problems: Triple negative breast cancer (HCC) Palliative care encounter Goals of care, counseling/discussion Brain mass HOSPITAL COURSE (focused): Patient was loaded with Keppra and had head imaging that was concerning for a parietal lobe mass. She was evaluated by Neurology and Neurosurgery who agreed with continuingKeppra, obtaining LTM and MRI. She had imaging of her chest abdomen and pelvis which showed mets toher lung, liver, bone, peritoneum, and lymph nodes. She was evaluated Oncology and Radiation Oncology who agreed with whole-brain radiation and consider chemotherapy after a biopsy with tissue pathology. Patient had no seizure burden noted on long-term monitoring EEG and Neurosurgery signed off patient with follow-up outpatient Radiation Oncology along with medical Oncology. Patient was tolerating diet and was evaluated by PT/OT along with speech therapy. On 12/31 patient was deemed stable enough for discharge home and will follow-up with outpatient Radiation Oncology and has a appointment scheduled with Medical Oncology. Vent/ABG: no Operations & Procedures: None Complications: none significant Labs: CHEMISTRY: BUN, Creatinine, GFR Estimated, Sodium, Potassium, Chloride, Carbon Dioxide, Glucose, Calcium (see below for most recent value): Lab Results Component Value Date/Time BUN 16 12/31/2024 05:50 AM BUN 15 09/19/2020 09:00 AM CREAT 0.5 12/31/2024 05:50 AM CREAT 0.6 09/19/2020 09:00 AM GFRESTIMATED >60.0 09/19/2020 09:00 AM NA 137 12/31/2024 05:50 AM NA 141 09/19/2020 09:00 AM POTASSIUM 4.9 12/31/2024 05:50 AM POTASSIUM 4.9 09/19/2020 09:00 AM CL 101 12/31/2024 05:50 AM CL 105 09/19/2020 09:00 AM CO2 20 (L) 12/31/2024 05:50 AM CO2 25 09/19/2020 09:00 AM CA 9.4 12/31/2024 05:50 AM CA 9.2 09/19/2020 09:00 AM HEMOGLOBIN: Hgb (see below for last three most recent values): Lab Results Component Value Date/Time HGB 11.7 (L) 12/31/2024 05:50 AM HGB 11.6 (L) 12/30/2024 05:22 AM HGB 11.8 (L) 12/30/2024 03:10 AM HGB 13.9 09/19/2020 09:00 AM HGB 14.7 03/20/2020 09:36 AM HGB 13.9 01/03/2018 12:00 AM HGB 12.7 12/28/2015 04:41 PM Imaging (focused): CCM Imaging: yes - MRI BRAIN W WO CONTRAST Result Date: 12/30/2024 IMPRESSION 1. Multiple brain metastases in the bilateral cerebral and cerebellar hemispheres, several of them containing small amount of chronic blood products and/or mineralization. 2. The largest metastasis at the left parietooccipital junction measures up to 2.5 cm and in conjunction with moderate surrounding vasogenic edema is producing a local mass effect. All other metastases are subcentimeter in size without significant edema or mass effect. 3. Chronic unrelated findings as detailed above. MR GUIDED BRAIN LOCALIZATION BRAINLAB Result Date: 12/30/2024 IMPRESSION 1. Multiple brain metastases in the bilateral cerebral and cerebellar hemispheres, several of them containing small amount of chronic blood products and/or mineralization. 2. The largest metastasis at the left parietooccipital junction measures up to 2.5 cm and in conjunction with moderate surrounding vasogenic edema is producing a local mass effect. All other metastases are subcentimeter in size without significant edema or mass effect. 3. Chronic unrelated findings as detailed above. MRI NEURO 3-D RECONSTRUCTION Result Date: 12/30/2024 IMPRESSION 1. Multiple brain metastases in the bilateral cerebral and cerebellar hemispheres, several of them containing small amount of chronic blood products and/or mineralization. 2. The largest metastasis at the left parietooccipital junction measures up to 2.5 cm and in conjunction with moderate surrounding vasogenic edema is producing a local mass effect. All other metastases are subcentimeter in size without significant edema or mass effect. 3. Chronic unrelated findings as detailed above. CT CHEST/ABDOMEN/PELVIS WITH IV CONTRAST WITH ORAL CONTRAST Result Date: 12/30/2024 IMPRESSION Thoracic and abdominal metastases involving the lungs, liver, lymph nodes, peritoneum, subcutaneous tissues, and bones. PET CT SKULL BASE TO MID-THIGH FDG Result Date: 12/29/2024 IMPRESSION Widely disseminated disease, including brain, lung, liver, bone, hiro, and subcutaneousmetastases. Added to the [facility] result communication system on 12/29/2024 at 16:17. Test Results Still Pending at Discharge: none MEDICATIONS: CCM discharge medications: Discharge medications MEDICATION UPDATES AT DISCHARGE START taking these medications INSTRUCTIONS levETIRAcetam 500 MG Tablet Commonly known as: Keppra Take 1 Tablet by mouth in the morning and 1 Tablet before bedtime. omeprazole 20 MG Cpdr Commonly known as: PriLOSEC Start taking on: January 01, 2025 Take 1 Capsule by mouth in the morning for 14 days. Senna Tablet Take 1 Tablet by mouth in the morning and 1 Tablet before bedtime. Do all this for 14 days. CHANGE how you take these medications INSTRUCTIONS dexAMETHasone 4 MG Tabs Tablet Commonly known as: Decadron What changed: when to take this Take 1 Tablet by mouth in the morning and 1 Tablet at noon and 1 Tablet before bedtime. Do all thisfor 20 days. CONTINUE taking these medications INSTRUCTIONS Acetaminophen 500 MG Tablet Commonly known as: Tylenol take 2 tabs by mouth every 8 hours pain after surgery for 3 days alendronate 70 MG Tablet Commonly known as: Fosamax Take 1 Tablet by mouth once a week. with 8 oz. water 30 minutes before first meal of the day. Remain upright for 30 min after taking tablet. aspirin 81 MG chewable tablet Take 1 Tab by mouth daily. with food. Atenolol 25 MG Tablet Commonly known as: Tenormin TAKE 1 TABLET BY MOUTH IN THE MORNING atorvaSTATin 80 MG Tablet Commonly known as: Lipitor Take 1 tablet by mouth once daily B-D Ultrafine III (5MM) Pen Misc Use daily with insulin pen Dexcom G7 Sensor Misc USE TO TEST BLOOD SUGAR Ergocalciferol (Vitamin D2) 1.25 MG (43819 UT) Capsule Commonly known as: Drisdol Take 1 capsule by mouth once a week Insulin Glargine Solostar 100 UNIT/ML Sopn Commonly known as: Lantus SoloStar Inject 33 Units under the skin at bedtime. Insulin Pen Needle 31G X 5 MM Use with Lantus and Novolog 4 times a day. Can substitute for preferred brand Dx E11.9 levothyroxine 100 MCG Tablet Commonly known as: Levoxyl TAKE 1 TABLET BY MOUTH ONCE DAILY 30 MINUTES BEFORE BREAKFAST OR OTHER MEDICATIONS losartan-hctz 100-25 mg per tab 100-25 MG per tablet Commonly known as: Hyzaar Take 1 tablet by mouth once daily Mounjaro 12.5 MG/0.5ML Soaj Generic drug: Tirzepatide Inject 12.5 mg under the skin once a week. NovoLOG FlexPen 100 UNIT/ML Sopn Generic drug: insulin aspart Inject 5 units under the skin with breakfast, 15 units at lunch, and 23 units at supper plus CF of 7 units with lunch and dinner if blood sugar >220 max 60 units/day ondansetron 4 MG Tablet Commonly known as: Zofran 1 tablet by mouth every 8 hours as needed for nausea after surgery. STOP taking these medications Furosemide 20 MG Tablet Commonly known as: Lasix Miebo 1.338 GM/ML Soln Generic drug: Perfluorohexyloctane SCHEDULED FOLLOW-UP: Future Appointments Appt Date/Time Provider Department 01/12/2025 2:00 PM Eleuterio Zapata MD Hematology/Oncology [facility] 01/27/2025 8:00 AM Lesly Castellon DO Family Practice [facility] 03/23/2025 8:00 AM [facility] 03/24/2025 8:40 AM Tanya Mcpherson MD Neurology [facility] OTHER INFORMATION: Vital Signs (last recorded): Most Recent Systolic BP: 123 mmHg (12/31/24 1500) Most Recent Diastolic BP: 79 mmHg (12/31/24 1500) Pulse: 83 (12/31/24 1500) Resp: 18 (12/31/24 1500) Most Recent Temperature: 36.39 C (12/31/24 1400) Weight: 66.3 kg (146 lb 2.6 oz) (12/31/24 0600) SpO2: 98 % (12/31/24 1500) O2 flow rate: 2 L/MIN (12/30/24 0800) Allergies: Patient has no known allergies. Activity: Activity as tolerated, Can not drive or operate heavy machinery Diet: age appropriate diet and diabetic diet Code Status: Full Code Condition on Discharge: fair Indwelling Devices: none Delacruz Fall Scale: Fall Score: 35 (12/31/24 0800) Reference range: 0-24=minimal fall risk; 25-50=moderate fall risk; greater than 50=high fall risk. Isolation status: None Cognition: normal CONSULTS ORDERED: NEUROLOGY CONSULT IP NEUROLOGY CONSULT IP NEUROSURGERY CONSULT IP PALLIATIVE MEDICINE CONSULT IP ONCOLOGY CONSULT IP ADULT SPEECH THERAPY CONSULT IP (ACUTE CARE REHAB) RADIATION ONCOLOGY CONSULT IP ADULT PHYSICAL THERAPY CONSULT IP ADULT OCCUPATIONAL THERAPY CONSULT IP REFERRING PHYSICIAN: REF: TAE NOGUERA [address] [place] [address] (office) [phone] (fax) PRIMARY CARE PROVIDER: PCP: Lesly Castellon DO [address] / [place] [address] (office) [phone] (fax) Note: To contact a physician responsible for this patient’s hospital care, please call [facility] [phone]. Cosigned by Bridgett Summers MD at 12/31/2024 7:03 PM EDT documented in this encounter Discharge Instructions * Discharge Instr - AVS* Jason Sheppard DO - 12/31/2024 1:23 PM EDT Discharge Date: 12/31/2024 The information below provides you with the instructions and the list of medications you need to betaking following discharge from the hospital. If you have any questions, please ask before leaving. If you have questions after leaving, you can reach us at the numbers below. YOUR HOSPITAL PROVIDERS: Discharging Provider: Bridgett Summers MD Fellow Provider: Jason Sheppard DO Provider Department: Critical Care Medicine IF YOU HAVE QUESTIONS: - To reach this Provider Friday through Friday (8:00 AM to 4:30 PM) for any questions or test results: Call [phone] - For after-hours concerns: Call [phone] and have your provider paged, or the provider on callfor the Department of Critical Care Medicine paged. - Please note, the discharging provider will not be able to provide you with any medications refills. Please discuss these with your primary care provider. FOR WORSENING SYMPTOMS: - If you have new symptoms, or your symptoms get worse, please contact your Discharge Provider or Primary Care Provider (PCP). If these providers are not available, you can go to your local [facility] during their business hours. - In an EMERGENCY situation: Call 911 or go to the nearest emergency room. A BRIEF SUMMARY OF YOUR HOSPITAL STAY: You came to the hospital due to seizure like activity and had CT scan and MRI that showed metastatic disease from your breast cancer in your brain. You were evaluated by Neurosurgery, Neurology, Medical Oncology, Radiation Oncology, and Palliative medicine. You were started on Keppra an anti seizure medication and steroids to help reduce inflammation from your brain tumor. Your seizures stopped and your plan was discussed to go home and receive therapy near your house Your main diagnosis at discharge was: Metastatic breast cancer to brain, lung, bone, lymph nodes, and liver Operations & Procedures performed: None Complications: None Inpatient test results that are pending at discharge: None Advance Directive Documented: Advance Directive Does the Patient have an Advance Directive? No YOUR FOLLOW UP APPOINTMENTS: Primary Care Provider Information: PCP: LESLY CASTELLON [address] [place] [address] [phone] An appointment was requested with PCP within 1 week of discharge and your radiation oncologist willdiscuss with radiation here. (Please take this form to this visit with your primary care physician.) INSTRUCTIONS: Diet: Regular Activity: As tolerated You can not drive or operate heavy machinery Call your primary care physician or seek medical attention if you have fevers, chills, have chest pain, shortness of breath, non-stop vomiting or diarrhea, confusion, or seizures return If you fee suicidal or homicidal, please call the crisis hotline at [phone] ([phone]). MEDICATION CHANGES START TAKING THE FOLLOWING MEDICATIONS: 1. Keppra - Take 500 mg, twice daily 2. Dexamethasone - Take 4 mg, three times daily 3. Pepcid - Take 20 mg, once daily CONTINUE TAKING ALL OTHER MEDICINES PRESCRIBED documented in this encounter Progress Notes * Luis Martinez MD - 12/31/2024 4:26 PM EDT The patient was seen by Kim IBRAHIM under my direction. She discussed the case with me and I agreed with her workup and occlusions. I saw the patient the neuro ICU. We discussed that she needs palliative whole-brain radiation +/- hippocampal sparing. She would like to start as soon as possibleand we agreed that she should see her prior radiation oncologist in [place].. I called Mamie MARTINEZ, radiation oncologist [facility], on his cell phone. We discussed the patient's case and he agreed that he would contact the patient on Friday directly or through family for an appointment next week. The patient can have radiation in [place] closer to home. Thank you for allowing us to participate in the care of this patient. Thank you, Rey Armstrong documented in this encounter H&P Notes * Maria Del Carmen Cruz CRNP - 12/30/2024 2:19 AM EDT HISTORY & PHYSICAL EXAMINATION - Critical Care Medicine [facility] [address] Name: Aixa Cruz Location: [facility] A434/[id number] Date: 12/29/2024 Time: 11:19 PM Care during the described time interval was provided by me. I have reviewed this patient's available data, including medical history, events of note, physical examination and test results. DATE OF ADMISSION: 12/30/2024 PRESENTING PROBLEM: New onset seizures in the setting of metastatic disease HPI: Aixa is a 69 y/o female with a PMH significant for depression, anxiety, DLD, hypothyroidism,DM, essential tremor, HTN, lumbar degenerative disc disease, obesity, breast cancer with mets to the lung, brain and bone. Aixa presented to [facility] ED with for evaluation of seizure like activity. While in the ED the patient was reported to have another seizure. She has no prior history of seizures and is not on any AEDs. She is being transferred to [facility] for neurological services. At the time of her ICU arrival the patient is alert and oriented to person, place and event. She explained that she was at [employer] study tonight went she started to "feel off" noting that she couldn't figure out how to get out of her car. She denied headache, motor or visual deficits. Her then took her to the ED for evaluation. At the time of my assessment the patient is complaint free and neurologically intact. PAST MEDICAL HISTORY: Past Medical History: Diagnosis [...] (see actual BMI) 03/31/2024 Persistent insomnia 03/31/2024 PAST SURGICAL HISTORY: Past Surgical History: Procedure Laterality Date COLONOSCOPY, DIAGNOSTIC (RECTUM) 02/11/2011 diverticulosis, repeat in 5 years COLONOSCOPY, DIAGNOSTIC (RECTUM) 02/13/2016 adenomatous polyp, repeat 3 yrs/COLONOSCOPY FLEXIBLE PROXIMAL DIAGNOSTIC performed by Silvestre Max MD at ENDOSCOPY [facility] COLONOSCOPY, DIAGNOSTIC (RECTUM) 07/20/2019 biopsies show adenomatous polyps/recall 3 years/COLONOSCOPY FLEXIBLE PROXIMAL DIAGNOSTIC performed by Sudhakar Martell MD at ENDOSCOPY [facility] COLONOSCOPY, DIAGNOSTIC (RECTUM) 08/23/2022 benign adenomatous polyp, diverticulosis, repeat 3 yrs / COLONOSCOPY FLEXIBLE PROXIMAL DIAGNOSTIC performed by Sudhakar Martell MD at ENDOSCOPY [facility] EGD, FLEXIBLE, DIAGNOSTIC N/A 11/25/2023 ESOPHAGOGASTRODUODENOSCOPY (EGD), FLEXIBLE, TRANSORAL, DIAGNOSTIC performed by Kwesi Nichols MD at [facility] GASTRIC BAND & PORT REMOVAL, LAPAROSCOPIC N/A 08/04/2024 LAPAROSCOPIC GASTRIC RESTRICTIVE SURGERY REMOVE BAND AND PORT performed by Kwesi Nichols MD at [facility] INJECT DX/THER SUBSTANCE INTERLAMINAR LUMBAR/SACRAL W IMAGE GUIDE 11/05/2021 INJECTION SPINE LUMBAR OR SACRAL performed by Raimundo An DO at [facility] INJECT DX/THER SUBSTANCE INTERLAMINAR LUMBAR/SACRAL W IMAGE GUIDE 03/20/2022 INJECTION SPINE LUMBAR OR SACRAL performed by Raimundo An DO at OR [facility] INJECT DX/THER SUBSTANCE INTERLAMINAR LUMBAR/SACRAL W IMAGE GUIDE 11/13/2022 INJECTION SPINE LUMBAR OR SACRAL performed by Raimundo An DO at [facility] INJECT DX/THER SUBSTANCE INTERLAMINAR LUMBAR/SACRAL W IMAGE GUIDE 05/14/2023 INJECTION SPINE LUMBAR OR SACRAL performed by Raimundo An DO at [facility] INJECT DX/THER SUBSTANCE INTERLAMINAR LUMBAR/SACRAL W IMAGE GUIDE 05/31/2024 INJECTION SPINE LUMBAR OR SACRAL performed by Thom Palomino DO at [facility] INJECT DX/THER SUBSTANCE INTERLAMINAR LUMBAR/SACRAL W IMAGE GUIDE Left 10/21/2024 INJECTION SPINE LUMBAR OR SACRAL performed by Thom Palomino DO at [facility] TUNN ACC DEV;5 YRS/OLDER Right 09/18/2023 INSERT TUNNELED CENTRAL VENOUS ACCESS WITH SUBQ PORT performed by Marty Quispe Jr., MD at OR [facility] PATIENT EDU, LAP-BAND SURGERY REMOVE CATARACT, INSERT LENS PROSTH Left 04/30/2018 left EXTRACAPSULAR CATARACT REMOVAL WITH INTRAOCULAR LENS performed by Martin Donnelly MD at OR [facility] REMOVE CATARACT, INSERT LENS PROSTH Right 05/12/2018 right EXTRACAPSULAR CATARACT REMOVAL WITH INTRAOCULAR LENS performed by Martin Donnelly MD at OR [facility] REMOVE TONSILS & ADENOIDS, UNDER 12 REVISION OF MIDDLE EAR BONE Dr. Allred SURGICAL PROCEDURE ONLY Right 02/26/2024 Remove right port by Dr Robi Yun. US GUIDED BREAST BIOPSY LEFT Left 06/24/2023 FAMILY HISTORY: non-contributory SOCIAL HISTORY: Social History Tobacco Use Smoking status: Never Smokeless tobacco: Never Vaping Use Vaping status: Never Used Substance Use Topics Alcohol use: Yes Comment: rare Drug use: No PRIOR TO ADMISSION MEDS: Prior to Admission medications Medication Sig Last Dose Discont. dexAMETHasone 4 MG Oral Tablet (Decadron) Take 1 Tablet by mouth in the morning and 1 Tablet beforebedtime. Insulin Glargine Solostar 100 UNIT/ML Subcutaneous Solution Pen-injector (Lantus SoloStar) Inject 33 Units under the skin at bedtime. Atorvastatin Calcium 80 MG Oral Tablet (Lipitor) Take 1 tablet by mouth once daily Losartan Potassium-HCTZ 100-25 MG Oral Tablet (Hyzaar) Take 1 tablet by mouth once daily Mounjaro 12.5 MG/0.5ML Subcutaneous Solution Auto-injector (Tirzepatide) Inject 12.5 mg under the skin once a week. Atenolol 25 MG Oral Tablet (Tenormin) TAKE 1 TABLET BY MOUTH IN THE MORNING Furosemide 20 MG Oral Tablet (Lasix) TAKE 1 TABLET BY MOUTH TWICE DAILY NEEDED FOR FEET SWELLING, FLUID ACCUMULATION OR WEIGHT GAIN Vitamin D (Ergocalciferol) 1.25 MG (31360 UT) Oral Capsule (Drisdol) Take 1 capsule by mouth once aweek Acetaminophen 500 MG Oral Tablet (Tylenol) take 2 tabs by mouth every 8 hours pain after surgery for 3 days Ondansetron HCl 4 MG Oral Tablet 1 tablet by mouth every 8 hours as needed for nausea after surgery. Patient not taking: Reported on 10/21/2024 NovoLOG FlexPen 100 UNIT/ML Subcutaneous Solution Pen-injector (insulin aspart) Inject 5 units under the skin with breakfast, 15 units at lunch, and 23 units at supper plus CF of 7 units with lunch and dinner if blood sugar >220 max 60 units/day Dexcom G7 Sensor USE TO TEST BLOOD SUGAR Alendronate Sodium 70 MG Oral Tablet (Fosamax) Take 1 Tablet by mouth once a week. with 8 oz. water30 minutes before first meal of the day. Remain upright for 30 min after taking tablet. Levothyroxine Sodium 100 MCG Oral Tablet TAKE 1 TABLET BY MOUTH ONCE DAILY 30 MINUTES BEFORE BREAKFAST OR OTHER MEDICATIONS Miebo 1.338 GM/ML Ophthalmic Solution INSTILL ONE DROP INTO BOTH EYES FOUR TIMES DAILY . BOTTLE PREPARATION IS REQUIRED. REFER TO PACKAGE INSERT FOR SPECIAL PREPARATION AND ADMIN Patient not taking: Reported on 10/21/2024 Insulin Pen Needle 31G X 5 MM Use with Lantus and Novolog 4 times a day. Can substitute for preferred brand Dx E11.9 aspirin 81 MG chewable tablet Take 1 Tab by mouth daily. with food. B-D Ultrafine III, 5MM, Pen MISC Use daily with insulin pen ALLERGIES: Patient has no known allergies. ROS: Constitutional: (-) fever chills sweats or weight loss Eyes: (-) negative, no amaurosis fugax, pain, blurred vision, or redness Cardiovascular: (-) negative: no chest pain, dyspnea, syncope, or palpitations Pulmonary: (-) negative: no cough, wheezing, or shortness of breath Skin: (-) negative: no rash or new or changing moles Neurology: (-) negative: no focal neurologic defect PHYSICAL EXAMINATION: Most Recent Vital Signs: BP: 130 mmHg/82 mmHg (12/30/24244) Pulse: 93 (12/30/24244) Resp: 24 (12/30/24244) Temp: 36.22 C (12/30/24244) Temp Summary: Temp Min: 36.2 °C (97.2 °F) Max: 36.2 °C (97.2 °F) SpO2: 98 % (12/30/24244) O2 flow rate: 2 L/MIN (12/30/24244) Supplemental O2 Delivery: Nasal Cannula (12/30/24244) Constitutional: no acute distress Chest: normal respiratory effort, lungs clear to auscultation and percussion Abdomen: normal: soft, bowel sounds normal, no masses, tenderness or organomegaly Skin: warm, dry, intact: Neuro: alert, oriented to person, place, and time, normal mental status exam, sensory normal LABORATORY VALUES: reviewed RADIOGRAPHIC STUDIES: reviewed Patient is being admitted for: Tonic-clonic seizures Active Problems: L parietal metastatic lesion Transaminitis (Liver metastases) Hyperglycemia * No active hospital problems. * POA = Present On Admission SYSTEM BASED PLAN: Neurologic/Pain Seizure L parietal metastatic lesion PMH: Depression, Anxiety, Essential tremor, Breast CA with mets to the lung, bone, liver and brain - Neurology and neurosurgery following, appreciate recommendations -MRI imaging per neurosurgery -CT CAP w/ w/o -ASMs per neurology - Keppra 500 mg BID - Decadron 10 mg, now, 4 mg Q6 after - Seizure precautions - LTM 12-24 hours - Will obtain stat CT head for acute change in neurologic status Cardiovascular No active issues PMH: HTN, DLD, Obesity -Continuous cardio/pulmonary monitoring -Echo 11/28/2023 EF 60%, mild TR and MR -ANALOG [employer] DES[employer] atorvastatin continued, holding [employer] HTN meds Respiratory No active issues PMH: Breast CA with mets to the lung, liver, bone, and brain -Encourage flutter and incentive utilization Gastrointestinal/Hepatobiliary Transaminitis PMH: Breast CA with mets to the lung, liver, bone, and brain GI prophylaxis: Yes, while on steroids Diet: NPO, except meds Bowel regimen: senna Endocrine Hyperglycemia PMH: DM, hypothyroidism - Medium dose sliding scale insulin - [employer] levothyroxine continued Infectious Disease No signs of active infection at this time. Renal/Electrolytes/Fluids No acute concerns - Strict I/Os/daily weight - Replete electrolytes as needed Heme/Onc PMH: Breast CA with mets to the lung, bone, and brain -PET scan today 12/29 showing widely metastatic disease including brain, lung, liver, bone -Bilateral mastectomy 08/18/2023 DVT prophylaxis: SCDS only MSK/Other No acute issues PMH: Breast CA with mets to the lung, liver, bone, and brain - PT/OT as able Lines/Drains/Ramirez - PIV x 2 - PICC RUE GLOBAL ISSUES: Analgesia: no pain Sedation: N/A Delirium/Confusion Assessment Method for ICU (CAM-ICU): CAM-ICU negative HOB Elevation: greater than 30 degress Nutrition: NPO except medications DVT Prophylaxis: pneumatic compression devices alone due to chemoprophylaxis contraindication Stress Ulcer Prophylaxis: PPI therapy for other indication Glycemic Control: not controlled - put in protocol Central Line Necessity Reviewed: reviewed and needed Ramirez: N/A Disposition: transfer to step down Patient's decisional capacity: has capacity to make decisions Communication with Patient/Family: No meeting held. Goals of Care: improve mental status to baseline I have provided critical care diagnostic services for neurologic failure and therapeutic services with frequent evaluation and titration of therapies for this patient on the date referenced above. Time devoted to patient care services described in this note equal: 30 minutes total critical care time exclusive of time spent performing procedures or time spent by another provider or resident. ALEXANDRIA Robertson 12/30/2024 4:19 AM Cosigned by Eduardo Ly MD at 12/30/2024 6:56 AM EDT Associated attestation - Eduardo Ly MD - 12/30/2024 6:56 AM EDT I have reviewed the advanced practitioner's documentation on the date of service referenced in note, and I agree with, and take responsibility for the plan of care. documented in this encounter Procedure Notes * Junior Nava, - 12/31/2024 5:28 AM EDT VIDEO ELECTROENCEPHALOGRAM REPORT LONG-TERM MONITORING Name: Aixa Cruz Referring Provider: Malachi Location: Inpatient Date and Time of Study: 12/30/24 06:28 - 12/31/2024 1034; 16:52-18:08 Clinical Summary: Aixa Cruz is a 69 year old female with brain metastasis and seizures Neuroactive Medications: Keppra Technical Summary: This video EEG monitoring procedure was performed using 21 scalp electrodes in the international 10/20 system placement with additional scalp, precordial and other surface electrodes used for electrical referencing and artifact detection. Video monitoring was utilized and reviewed periodically by the diagnostic technologist and the physician for electroclinical correlation. Findings: The EEG background was continuous and reactive with good spontaneous variability. In the most wakeful state, the anterior-posterior gradient was well-organized with a posterior dominant rhythm of up to 9 Hz. Activity consisted of normal voltage alpha with intermixed faster frequencies. State changes were seen with symmetric stage II sleep transients, including vertex waves, sleep spindles, and K complexes. There were occasional intrusions of generalized theta slowing during wakefulness. There was nearly continuous polymorphic theta-delta slowing over the left temporoparietal region. There were no epileptiform discharges or electrographic seizures. No patient events were marked forreview. Impression: This was an abnormal continuous video EEG recording due to: 1. Left temporoparietal slowing suggesting focal cerebral dysfunction in that region. 2. Diffuse slowing suggesting a mild degree of diffuse or multifocal cerebral dysfunction of non-specific etiology. There were no epileptiform discharges. No electrographic seizures were captured. documented in this encounter Consult Notes * Adán Nettles, OTR/L - 12/31/2024 4:09 PM EDTAssociated Order(s): ADULT OCCUPATIONAL THERAPY CONSULT IP GENERAL EVALUATION - Occupational Therapy [address] [address] Name: Aixa Cruz Location: [facility] [place] A434/A Date: 12/31/2024 Time: 4:11 PM Aixa Cruz is a 69 year old female. Patient Status: Inpatient Insurance: Payor: [employer] [facility] ([employer]) Plan: [employer] Product Type: *No Product type* Patient Seen: at bedside, nursing cleared patient for therapy Patient Identified By: Name, ID Band and Date Diagnosis: breast cancer metastisized to brain (12/31/241543) Status of treatment: Evaluation completed (12/31/241543) Orders: OT evaluation and treatment (12/31/241543) Precautions: Falls;Safety (12/31/241543) Total Treatment Time: 14 (12/31/241543) Past Medical History: Past Medical History: Diagnosis Date Depression with anxiety 10/31/2020 Dyslipidemia, goal to be determined Essential and other specified forms of tremor essential tremor High risk for fracture due to osteoporosis by DEXA scan 10/02/2018 HTN, goal below 140/90 Lumbar degenerative disc disease 03/31/2024 Non compliance w medication regimen 09/16/2019 Obesity, Class I, BMI 30.0-34.9 (see actual BMI) 03/31/2024 Persistent insomnia 03/31/2024 Past Surgical History: Past Surgical History: Procedure Laterality Date COLONOSCOPY, DIAGNOSTIC (RECTUM) 02/11/2011 diverticulosis, repeat in 5 years COLONOSCOPY, DIAGNOSTIC (RECTUM) 02/13/2016 adenomatous polyp, repeat 3 yrs/COLONOSCOPY FLEXIBLE PROXIMAL DIAGNOSTIC performed by Silvestre Max MD at ENDOSCOPY [facility] COLONOSCOPY, DIAGNOSTIC (RECTUM) 07/20/2019 biopsies show adenomatous polyps/recall 3 years/COLONOSCOPY FLEXIBLE PROXIMAL DIAGNOSTIC performed by Sudhakar Martell MD at ENDOSCOPY [facility] COLONOSCOPY, DIAGNOSTIC (RECTUM) 08/23/2022 benign adenomatous polyp, diverticulosis, repeat 3 yrs / COLONOSCOPY FLEXIBLE PROXIMAL DIAGNOSTIC performed by Sudhakar Martell MD at ENDOSCOPY [facility] EGD, FLEXIBLE, DIAGNOSTIC N/A 11/25/2023 ESOPHAGOGASTRODUODENOSCOPY (EGD), FLEXIBLE, TRANSORAL, DIAGNOSTIC performed by Kwesi Nichols MD at [facility] GASTRIC BAND & PORT REMOVAL, LAPAROSCOPIC N/A 08/04/2024 LAPAROSCOPIC GASTRIC RESTRICTIVE SURGERY REMOVE BAND AND PORT performed by Kwesi Nichols MD at [facility] INJECT DX/THER SUBSTANCE INTERLAMINAR LUMBAR/SACRAL W IMAGE GUIDE 11/05/2021 INJECTION SPINE LUMBAR OR SACRAL performed by [place] Tae An, DO at OR [facility] INJECT DX/THER SUBSTANCE INTERLAMINAR LUMBAR/SACRAL W IMAGE GUIDE 03/20/2022 INJECTION SPINE LUMBAR OR SACRAL performed by [place] Tae An, DO at OR [facility] INJECT DX/THER SUBSTANCE INTERLAMINAR LUMBAR/SACRAL W IMAGE GUIDE 11/13/2022 INJECTION SPINE LUMBAR OR SACRAL performed by [place] Tae An, DO at OR [facility] INJECT DX/THER SUBSTANCE INTERLAMINAR LUMBAR/SACRAL W IMAGE GUIDE 05/14/2023 INJECTION SPINE LUMBAR OR SACRAL performed by [place] Tae An, DO at OR [facility] INJECT DX/THER SUBSTANCE INTERLAMINAR LUMBAR/SACRAL W IMAGE GUIDE 05/31/2024 INJECTION SPINE LUMBAR OR SACRAL performed by Thom Palomino DO at OR [facility] INJECT DX/THER SUBSTANCE INTERLAMINAR LUMBAR/SACRAL W IMAGE GUIDE Left 10/21/2024 INJECTION SPINE LUMBAR OR SACRAL performed by Thom Palomino DO at OR [facility] ACC DEV;5 YRS/OLDER Right 09/18/2023 INSERT TUNNELED CENTRAL VENOUS ACCESS WITH SUBQ PORT performed by Marty Quispe Jr., MD at OR [facility] PATIENT EDU, LAP-BAND SURGERY REMOVE CATARACT, INSERT LENS PROSTH Left 04/30/2018 left EXTRACAPSULAR CATARACT REMOVAL WITH INTRAOCULAR LENS performed by Martin Donnelly MD at OR [facility] REMOVE CATARACT, INSERT LENS PROSTH Right 05/12/2018 right EXTRACAPSULAR CATARACT REMOVAL WITH INTRAOCULAR LENS performed by Martin Donnelly MD at OR [facility] REMOVE TONSILS & ADENOIDS, UNDER [address] REVISION OF MIDDLE EAR BONE Dr. Allred SURGICAL PROCEDURE ONLY Right 02/26/2024 Remove right port by Dr Robi Yun. US GUIDED BREAST BIOPSY LEFT Left 06/24/2023 Social History/Disposition Lives with: Spouse (12/31/241539) Assistance available: Yes (12/31/241539) Dwelling type: Multi-story home (12/31/241539) Entry steps: 1 (12/31/241539) Inside steps: 4 - 6 (12/31/241539) Bedroom location: 2nd floor (12/31/241539) Bath location: 2nd floor full bath (12/31/241539) Prior Level of Function Reported by: Patient (12/31/241543) Ambulation: Ambulatory without device (12/31/241543) Grooming: Independent (12/31/241543) Bathing: Independent (12/31/241543) Dressing: Independent (12/31/241543) Feeding: Independent (12/31/241543) Toileting: Independent (12/31/241543) Driving: Yes (12/31/241543) Durable Medical Equipment at home: Quad cane;Rolling walker (12/31/241543) Subjective: Patient in chair upon arrival. Agreeable to OT session; family present at bedside. Pain: No complaints of pain Observations Consciousness: Alert (12/31/241543) Orientation: Oriented times 4 (12/31/241543) Psychosocial: Patient can communicate basic needs;Patient can converse in a social setting (12/31/241543) Sitting posture: Forward head;Rounded shoulders (12/31/241543) Standing posture: Forward head;Rounded shoulders (12/31/241543) Safety awareness: The Patient verbalizes insight of current deficits. (12/31/241543) Other Findings Endurance: Fair (12/31/241543) Light touch sensation: LUE;RUE;Intact (12/31/241543) Coordination: LUE;RUE;Intact (12/31/241543) Current Functional Status: Bilateral Upper Extremity Range of Motion: WFL (12/31/241543) Strength Assessment: (BUE at least 3+/5, not formally assessed) (12/31/241543) Dressing Upper Body: Supervision (Please comment) (12/31/241543) Lower Body: Supervision (Please comment) (to doff/don socks) (12/31/241543) Functional Ambulation Assistive Device: No device (handheld assist) (12/31/241543) Distance in feet:: 160 (12/31/241543) Level of Assistance: Contact Guard (12/31/241543) OT Transfers Sit-Stand: Supervision (Please comment) (12/31/241543) Stand-Sit: Supervision (Please comment) (12/31/241543) Balance Sit (Static): Fair (12/31/241543) Sit (Dynamic): Fair (12/31/241543) Stand (Static): Fair (12/31/241543) Stand (Dynamic): Fair (-) (12/31/241543) Alarm Status Patient positioned in: Chair (12/31/241543) With: Pressure pad alarm intact and functioning and call kevin in reach (12/31/241543) Patient and Family Goals: to get well and to return home Patient Education Education Topic: Role of OT;Plan of care goals (12/31/241543) Review of Precautions: Safety;Fall (12/31/241543) Method of Education: Verbalized to patient (12/31/241543) Education Provided to: Patient (12/31/241543) Response to Education: Receptive and agreeable to education (12/31/241543) Barriers to learning: Medical status (12/31/241543) Preferred learning method: Combination (12/31/241543) Treatment Provided: Evaluation Moderate Complexity 14 minutes - 01121: Patient was cooperative and pleasant during treatment session. Moderate complexity evaluation performed and 3-5 activity limitations were identified, including ADL deficit, functional mobility deficit, bed mobility deficit, decreased strength, decreased endurance, and impaired balance. Minimal or moderate modification of the functional task was necessary to complete the evaluation. Deficits Requiring O.T. Treatment: Deficits requiring O.T. treatment needs: ADL/self-care;Balance;Endurance;Functional mobility;Safety;Upper extremity strength (12/31/24 154) Assessment: Patient was admitted to [facility] [place] on 12/30/24 for above dx. Patient was cooperative and agreeable to participate in OT evaluation this date. Prior to admission patient was independent with ADLs/IADLs and mobility. During session patient performed functional transfers and self-care tasks with supervision. Functional mobility completed with contact guard and handheld assist. Patient slightly unsteady at times. Encouraged patient to perform dressing tasks seated and to use cane/walker if shefelt unsteady at home. Following session patient seated in chair with all needs met. Currently, patients presents with minor deficits in ADLs, functional transfers and mobility, as well as decreased s trength, endurance, balance and safety. Patient would benefit from continued OT services to improveindependence in ADLs and functional mobility. When medically appropriate, Please consider home withpost-acute care services which may include home health or outpatient therapy. The level of care will be determined in collaboration with the patient, family/caregiver and care team members. Goals: Demonstrates Self-Care at: UB Bathing: modified independent LB Bathing: modified independent UB Dressing: modified independent to don gown/robe/shirt LB Dressing: modified independent to don socks/shoes/pants Grooming: independent Toileting: modified independent Demonstrates Bed Mobility at: Supine to sit: modified independent Sit to supine: modified independent Rolling left/right: modified independent Side-lying<>sit: modified independent Demonstrates balance at: Dynamic/Static Sitting balance: Fair+ Dynamic/Static Standing balance: Fair+ Transfers: Sit to Stand: modified independent Stand to Sit: modified independent Toilet: modified independent Functional Ambulation at modified independent with AD PRN Demonstrates standing/activity endurance at 15 minutes to increase participation in functional mobility and ADL tasks Increase Strength of B UEs 1/2 muscle grade Goal Time Frame: 6 visits Treatment Plan: Safety, Bed mobility training, Functional Ambulation, Transfer Training, Upper extremity strengthening, Balance activities, ADL training and Endurance Anticipated Frequency (on eval): 1 to 3 times per week (12/31/24 1544) AM-PAC Help From Another Person Eating Meals: None (12/31/241543) Help From Another Person Taking Care of Personal Grooming: A little (12/31/241543) Help From Another Person To Put On/Take Off Upper Body Clothing: A little (12/31/241543) Help From Another Person To Put On/Take Off Lower Body Clothing: A little (12/31/241543) Help From Another Person Toileting: A little (12/31/241543) Help From Another Person Bathing: A little (12/31/241543) OT AM-PAC Score: 19 (12/31/241543) OT AM-PAC t-Scale Score: 40.22 (12/31/241543) HLM (Highest Level of Mobility) Goal: Level 6 walk 10 steps or more (12/31/241539) A portion of this AM-PAC assessment not scored based on functional assessment; rather clinical decision making utilized based on current findings and/or prior level of function. Please refer to future AM-PAC calculations of functional ability as they become available. * Grady Damico, PT - 12/31/2024 3:40 PM EDTAssociated Order(s): ADULT PHYSICAL THERAPY CONSULT IP GENERAL EVALUATION - Physical Therapy [address] [address] Name: Aixa Cruz Location: [facility] [place] A434/A Date: 12/31/2024 Time: 3:40 PM Aixa Cruz is a 69 year old female. Patient Status: Inpatient Insurance: Payor: [employer] - [place] ([facility]) Plan: [employer] Product Type: *No Product type* Patient Seen: at bedside, nursing cleared patient for therapy Patient Identified By: Name, ID Band, and Date Subjective: Pt seen in room, agreeable to exam. Pt sitting OOB in a chair. Diagnosis: seizures in the setting of metastatic disease (12/31/24 154) Status of treatment: Evaluation completed (12/31/241539) Orders: PT evaluation and treatment;OOB (12/31/24 154) Precautions: Alarms (12/31/24 154) Total Treatment Time--free text: 14 (12/31/24 154) Past Medical History: Past Medical History: Diagnosis Date Depression with anxiety 10/31/2020 Dyslipidemia, goal to be determined Essential and other specified forms of tremor essential tremor High risk for fracture due to osteoporosis by DEXA scan 10/02/2018 HTN, goal below 140/90 Lumbar degenerative disc disease 03/31/2024 Non compliance w medication regimen 09/16/2019 Obesity, Class I, BMI 30.0-34.9 (see actual BMI) 03/31/2024 Persistent insomnia 03/31/2024 Past Surgical History: Past Surgical History: Procedure Laterality Date COLONOSCOPY, DIAGNOSTIC (RECTUM) 02/11/2011 diverticulosis, repeat in 5 years COLONOSCOPY, DIAGNOSTIC (RECTUM) 02/13/2016 adenomatous polyp, repeat 3 yrs/COLONOSCOPY FLEXIBLE PROXIMAL DIAGNOSTIC performed by Silvestre Max MD at ENDOSCOPY [facility] COLONOSCOPY, DIAGNOSTIC (RECTUM) 07/20/2019 biopsies show adenomatous polyps/recall 3 years/COLONOSCOPY FLEXIBLE PROXIMAL DIAGNOSTIC performed by Sudhakar Martell MD at ENDOSCOPY [facility] COLONOSCOPY, DIAGNOSTIC (RECTUM) 08/23/2022 benign adenomatous polyp, diverticulosis, repeat 3 yrs / COLONOSCOPY FLEXIBLE PROXIMAL DIAGNOSTIC performed by Sudhakar Martell MD at ENDOSCOPY [facility] EGD, FLEXIBLE, DIAGNOSTIC N/A 11/25/2023 ESOPHAGOGASTRODUODENOSCOPY (EGD), FLEXIBLE, TRANSORAL, DIAGNOSTIC performed by Kwesi Nichols MD at [facility] GASTRIC BAND & PORT REMOVAL, LAPAROSCOPIC N/A 08/04/2024 LAPAROSCOPIC GASTRIC RESTRICTIVE SURGERY REMOVE BAND AND PORT performed by Kwesi Nichols MD at [facility] INJECT DX/THER SUBSTANCE INTERLAMINAR LUMBAR/SACRAL W IMAGE GUIDE 11/05/2021 INJECTION SPINE LUMBAR OR SACRAL performed by Raimundo An DO at OR [facility] INJECT DX/THER SUBSTANCE INTERLAMINAR LUMBAR/SACRAL W IMAGE GUIDE 03/20/2022 INJECTION SPINE LUMBAR OR SACRAL performed by Raimundo An DO at OR [facility] INJECT DX/THER SUBSTANCE INTERLAMINAR LUMBAR/SACRAL W IMAGE GUIDE 11/13/2022 INJECTION SPINE LUMBAR OR SACRAL performed by Raimundo An DO at OR [facility] INJECT DX/THER SUBSTANCE INTERLAMINAR LUMBAR/SACRAL W IMAGE GUIDE 05/14/2023 INJECTION SPINE LUMBAR OR SACRAL performed by Raimundo An DO at OR [facility] INJECT DX/THER SUBSTANCE INTERLAMINAR LUMBAR/SACRAL W IMAGE GUIDE 05/31/2024 INJECTION SPINE LUMBAR OR SACRAL performed by Thom Palomino DO at OR [facility] INJECT DX/THER SUBSTANCE INTERLAMINAR LUMBAR/SACRAL W IMAGE GUIDE Left 10/21/2024 INJECTION SPINE LUMBAR OR SACRAL performed by Thom Palomino DO at OR [facility] TUNN ACC DEV;5 YRS/OLDER Right 09/18/2023 INSERT TUNNELED CENTRAL VENOUS ACCESS WITH SUBQ PORT performed by Marty Quispe Jr., MD at OR [facility] PATIENT EDU, LAP-BAND SURGERY REMOVE CATARACT, INSERT LENS PROSTH Left 04/30/2018 left EXTRACAPSULAR CATARACT REMOVAL WITH INTRAOCULAR LENS performed by Martin Donnelly MD at OR [facility] REMOVE CATARACT, INSERT LENS PROSTH Right 05/12/2018 right EXTRACAPSULAR CATARACT REMOVAL WITH INTRAOCULAR LENS performed by Martin Donnelly MD at OR [facility] REMOVE TONSILS & ADENOIDS, UNDER 12 REVISION OF MIDDLE EAR BONE Dr. Allred SURGICAL PROCEDURE ONLY Right 02/26/2024 Remove right port by Dr Robi Yun. US GUIDED BREAST BIOPSY LEFT Left 06/24/2023 Social History/Disposition Lives with: Spouse (12/31/24 1540) Assistance available: Yes (12/31/24 1540) Dwelling type: Multi-story home (12/31/24 1540) Entry steps: 1 (12/31/24 1540) Inside steps: 4 - 6 (12/31/24 1540) Bedroom location: 2nd floor (12/31/24 1540) Bath location: 2nd floor full bath (12/31/24 1540) Prior Level of Function Reported by: Patient (12/31/24 1540) Ambulation: Ambulatory without device (12/31/24 1540) Devices at home: Rolling walker;Quad cane (12/31/24 1540) Observations Consciousness: Alert (12/31/24 1540) Orientation: Oriented times 4 (12/31/241539) Psychosocial: Patient can communicate basic needs;Patient can converse in a social setting (12/31/241539) Sitting Posture: Rounded shoulders (12/31/241539) Standing Posture: Rounded shoulders (12/31/241539) Pain: No complaints of pain LOWER EXTREMITY ASSESSMENT: LE MMT: WFL LE ROM: WFL Transfers Sit-Stand: Supervision (12/31/241539) Stand-Sit: Supervision (12/31/241539) Ambulation Assist: Supervision (12/31/241539) Distance Ambulated (feet): 160 (12/31/241539) Assistive Device: No device (12/31/241539) Number of Stairs: 12 (12/31/241539) Level of Assistance: Contact Guard;Right Rail (12/31/241539) Ambulatory safety: Patient verbalizes insight of current deficits;Patient demonstrates carryover ofinsight during functional tasks (12/31/241539) Balance Sit (Static): Fair (12/31/241539) Sit (Dynamic): Fair (12/31/241539) Stand (Static): Fair (12/31/241539) Stand (Dynamic): Fair (12/31/241539) Patient and or Family Goal(s): to get well and to return home Patient Education Review of Precautions: Fall (12/31/241539) Safety Awareness: Patient verbalizes insight of current deficits;Patient demonstrates carryover of insight during functional tasks (12/31/241539) Preferred learning method: Combination (12/31/241539) Barriers to learning: None (12/31/241539) Method of Education: Verbalized to patient;Patient demonstrated task (12/31/241539) Topic of Education: Safety with mobility, Goals/plan of care, and Stair training Method of Education: Verbal discussion and explanation provided to patient: verbalized understanding and or agreement of this information Treatment Provided: Evaluation Low Complexity 14 minutes - [id number]: Patient was cooperative during treatment session. Low complexity evaluation performed with indication of no personal factors or comorbidities that impact plan of care. Patient presents with limitations in transfers, gait, elevations,and balance, which will impact plan of care. These limitations will be addressed by the goals set for this patient. Alarm Status Patient positioned in: Chair (12/31/241539) With: Pressure pad alarm intact and functioning and call kevin in reach (12/31/241539) Following session patient seated OOB in chair with chair alarm activated. Chair alarm (did not havecord to plug into call kevin system and/or room did not have port to plug cord into call kevin system). Patient's nurse was made aware. Assessment: Aixa Cruz is a 69 year old female admitted with seizures in the setting of metastatic disease. On exam pt has good LE strength. Pt reports numbness in B feet 2º to chemotherapy. Pt was able to transfer and ambulate without device. Pt demonstrated mild imbalance however she was franklyn to self correct. Pt able to ambulate on stairs with railings. Pt demonstrated imbalance while attempting reciprocal gait however balance improved with step-to pattern. Pt may benefit from continued PT services to work on deficits to maximize functional independence. Please consider home with post-acute care services which may include home health or outpatient therapy. The level of care will be determined in collaboration with the patient, family/caregiver and care team members. Deficits requiring P.T. treatment needs: Mobility;Balance (12/31/241539) Goals: Demonstrate Bed Mobility with : Supine to Sit: Modified Independent Sit to Supine: Modified Independent Demonstrate Transfers with: Sit to Stand: Modified Independent Stand to Sit: Modified Independent Demonstrate Ambulation: Device: None Distance in feet: 200 feet Level of Assistance on level surface: Modified Independent Demonstrate Stairclimbing: Number of steps: 6 : 1 rail, and Level of Assistance: Modified Independent Increase Balance: Fair + with Dynamic Standing Time Frame: 6 visits Treatment Plan: Bed mobility training, Transfer training, Gait training, Elevation training, and Balance activities Equipment needs: No device (12/31/241539) Anticipated Frequency (on eval): 1 to 3 times per week (12/31/241539) AM-PAC Score With Stairs : 20 (12/31/241539) Some items of AM-PAC not tested due to overall medical status, grades determined based on clinical judgement of how patient may do at this time had they been assessed. * Kim Moreno, [place] - 12/31/2024 9:28 AM EDTAssociated Order(s): RADIATION ONCOLOGY CONSULT IP RADIATION ONCOLOGY CONSULT [address] [id number] Name: Aixa Cruz Location: [facility] [place] [facility] A434/A Date: 12/31/2024 Time: 9:29 AM REQUESTING SERVICE: Medicine REASON FOR CONSULT: "Triple negative breast cancer with mets to lung, liver, brain, bone and nodes" HPI: 69F with history of TN L breast cancer diagnosed via biopsy 06/2023, path showed complex cysticlesion with the small detached fragments of adenocarcinoma, ER/MT negative/HER2 Musa negative. S/p bilateral mastectomy on 08/18/2023, L-side pathology showed 5 cm grade 3 invasive ductal carcinoma with positive lymph nodes, pT2 pN1 disease. 09/2023 post b/l mastectomies PET CT showed no FDG PET- CT evidence for residual or metastatic breast cancer. Patient completed adjuvant chemotherapy 02/12/24. Patient completed adjuvant radiation therapy 04/28/24 (at [facility]). Patient was last seen in med/onc 12/21/24 where she c/o generalized weakness, episodes of lightheadedness, headache, altered balance, and new palpable nodule on the R scapula. Patient found to haveelevated liver enzymes and alkaline phosphatase, suspicious for recurrent/metastatic disease. Dr Zapata ordered MRI brain and PET scan. On 12/29 PET scan revealed widely disseminated disease, includingbrain, lung, liver, bone, hiro, and subcutaneous metastases. Patient presented to [facility] ED 12/29 with seizure like activity. Patient found to have a large left parietal mass with edema. She received steroids and was transferred to [facility] for further management. MRIbrain showed multiple brain metastases in the bilateral cerebral and cerebellar hemispheres, largest metastasis at the left parietooccipital junction measuring 2.5 cm and in conjunction with moderatesurrounding vasogenic edema. NSG consulted, no role for surgery given diffuse brain mets. Rad/onc consulted for evaluation and treatment recommendations. CT C/A/P showed thoracic and abdominal metastases involving the lungs, liver, lymph nodes, peritoneum, subcutaneous tissues, and bones. Neurologyfollowing for epilepsy, started on Keppra. 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 Patient reports altered gait for last two months which she at that time attributed to her neuropathy from her chemo. Patient reports new palpable nodule in R scapula area for 3 weeks. Patient reports acute onset confusion and seizure at home 2 days ago lead to ED evaluation. Patient denies any JOE, N/V, altered vision or double vision. Patient denies any fever, chills, shortness of breath, chest pain or cough. Patient denies any new focal musculoskeletal aches or pains or new focal numbness or weakness. Patient denies recent weight changes or decreased appetite. All additional systems were reviewed and are negative. PRIOR THERAPY: 06/2023 diagnosed via biopsy, complex cystic lesion with the small detached fragments of adenocarcinoma, ER/MT negative/HER2 Musa negative. 08/18/2023 bilateral mastectomy 09/25/23 - 02/12/24 adjuvant chemotherapy including dose dense AC followed by paclitaxel. Completed 4cycles of AC and weekly Taxol [Dr Zapata] 04/28/24 Adjuvant Radiation therapy L chestwall/regional Lns ([facility]) PAST MEDICAL HISTORY: Past Medical History: Diagnosis [...] (see actual BMI) 03/31/2024 Persistent insomnia 03/31/2024 PAST SURGICAL HISTORY: Past Surgical History: Procedure Laterality Date COLONOSCOPY, DIAGNOSTIC (RECTUM) 02/11/2011 diverticulosis, repeat in 5 years COLONOSCOPY, DIAGNOSTIC (RECTUM) 02/13/2016 adenomatous polyp, repeat 3 yrs/COLONOSCOPY FLEXIBLE PROXIMAL DIAGNOSTIC performed by Silvestre Max MD at [facility] COLONOSCOPY, DIAGNOSTIC (RECTUM) 07/20/2019 biopsies show adenomatous polyps/recall 3 years/COLONOSCOPY FLEXIBLE PROXIMAL DIAGNOSTIC performed by Sudhakar Martell MD at [facility] COLONOSCOPY, DIAGNOSTIC (RECTUM) 08/23/2022 benign adenomatous polyp, diverticulosis, repeat 3 yrs / COLONOSCOPY FLEXIBLE PROXIMAL DIAGNOSTIC performed by Sudhakar Martell MD at [facility]COPY [facility] EGD, FLEXIBLE, DIAGNOSTIC N/A 11/25/2023 ESOPHAGOGASTRODUODENOSCOPY (EGD), FLEXIBLE, TRANSORAL, DIAGNOSTIC performed by Kwesi Nichols MD at [facility] GASTRIC BAND & PORT REMOVAL, LAPAROSCOPIC N/A 08/04/2024 LAPAROSCOPIC GASTRIC RESTRICTIVE SURGERY REMOVE BAND AND PORT performed by Kwesi Nichols MD at [facility] INJECT DX/THER SUBSTANCE INTERLAMINAR LUMBAR/SACRAL W IMAGE GUIDE 11/05/2021 INJECTION SPINE LUMBAR OR SACRAL performed by Raimundo An DO at OR [facility] INJECT DX/THER SUBSTANCE INTERLAMINAR LUMBAR/SACRAL W IMAGE GUIDE 03/20/2022 INJECTION SPINE LUMBAR OR SACRAL performed by Raimundo An DO at OR [facility] INJECT DX/THER SUBSTANCE INTERLAMINAR LUMBAR/SACRAL W IMAGE GUIDE 11/13/2022 INJECTION SPINE LUMBAR OR SACRAL performed by Raimundo An DO at OR [facility] INJECT DX/THER SUBSTANCE INTERLAMINAR LUMBAR/SACRAL W IMAGE GUIDE 05/14/2023 INJECTION SPINE LUMBAR OR SACRAL performed by Raimundo An DO at OR [facility] INJECT DX/THER SUBSTANCE INTERLAMINAR LUMBAR/SACRAL W IMAGE GUIDE 05/31/2024 INJECTION SPINE LUMBAR OR SACRAL performed by Thom Palomino DO at OR [facility] INJECT DX/THER SUBSTANCE INTERLAMINAR LUMBAR/SACRAL W IMAGE GUIDE Left 10/21/2024 INJECTION SPINE LUMBAR OR SACRAL performed by Thom Palomino DO at OR [facility] INSER TUNN ACC DEV;5 YRS/OLDER Right 09/18/2023 INSERT TUNNELED CENTRAL VENOUS ACCESS WITH SUBQ PORT performed by Marty Quispe Jr., MD at OR [facility] PATIENT EDU, LAP-BAND SURGERY REMOVE CATARACT, INSERT LENS PROSTH Left 04/30/2018 left EXTRACAPSULAR CATARACT REMOVAL WITH INTRAOCULAR LENS performed by Martin Donnelly MD at OR [facility] REMOVE CATARACT, INSERT LENS PROSTH Right 05/12/2018 right EXTRACAPSULAR CATARACT REMOVAL WITH INTRAOCULAR LENS performed by Martin Donnelly MD at OR [facility] REMOVE TONSILS & ADENOIDS, UNDER 12 REVISION OF MIDDLE EAR BONE Dr. Allred SURGICAL PROCEDURE ONLY Right 02/26/2024 Remove right port by Dr Robi Yun. US GUIDED BREAST BIOPSY LEFT Left 06/24/2023 FAMILY HISTORY: Family History Problem Relation Name Age of Onset Coronary Artery disease Mother CABG age 72; tachycardia-lifelong Hypertension Mother Diabetes Mother Arthritis Mother Breast Cancer Mother 72 lumpectomy, radiation Hearing loss Mother age related Neurological Disorder Father seizures, hearing loss Hearing loss Father age related Hearing loss Sister 15 teens Hearing loss Brother age related Stroke Grandmother (Maternal) COD Hearing loss Grandfather (Maternal) began fairly young in life but not congenital Heart Disorder Grandfather (Paternal) AL Hearing loss Grandfather (Paternal) age related Other (Liang's Esophagus) Son Sloan Asthma Son Sloan Parkinsonism Aunt (Paternal) Cancer Aunt (Paternal) Parkinsonism Uncle (Paternal) Parkinsonism Uncle (Paternal) SOCIAL HISTORY: Social History Tobacco Use Smoking status: Never Smokeless tobacco: Never Vaping Use Vaping status: Never Used Substance Use Topics Alcohol use: Yes Comment: rare Drug use: No ALLERGIES: Patient has no known allergies. ROS: As per HPI MEDICATIONS: Medications were reviewed. Current Facility-Administered Medications Medication Dose Route Frequency Provider Last Rate Last Admin hEParin inj 5,000 Units 5,000 Units Subcutaneous Q8H Jason Sheppard DO insulin aspart (NovoLOG) inj Subcutaneous Q6H Maria Del Carmen Cruz CRNP 12 Units at 12/31/24 1202 Acetaminophen (Tylenol) tab 650 mg 650 mg Oral Q8H PRN Jason Sheppard DO 650 mg at 12/30/24 1606 atorvaSTATin (Lipitor) tab 80 mg 80 mg Oral Daily(AM) Maria Del Carmen Cruz CRNP 80 mg at 12/31/24 0826 chlorHEXIDINE (Periogard) 0.12 % oral rinse 15 mL 15 mL Oral mucosal membrane BID (799,1999) Maria Del Carmen Cruz CRNP 15 mL at 12/31/24 0831 dexAMETHasone (Decadron) tab 4 mg 4 mg Oral Q6H Maria Del Carmen Cruz CRNP 4 mg at 12/31/24 1201 dextrose 50% inj 25 mL 25 mL IV Push PRN Maria Del Carmen Cruz CRNP dextrose 50% inj 50 mL 50 mL IV Push PRN Maria Del Carmen Cruz CRNP glucagon (Glucagen) inj 1 mg 1 mg Intramuscular PRN Maria Del Carmen Cruz CRNP Glucose (Glutose 15) 40 % gel 15 g of glucose 15 g of glucose Oral PRN Maria Del Carmen Cruz CRNP Glucose (Glutose 15) 40 % gel 30 g of glucose 30 g of glucose Oral PRN Maria Del Carmen Cruz CRNP glucose chew tab 16 g 16 g Oral PRN Maria Del Carmen Cruz CRNP levETIRAcetam (Keppra) tab 500 mg 500 mg Oral BID(AM/PM) Maria Del Carmen Cruz CRNP 500 mg at 12/31/24 0826 levothyroxine (Levoxyl) tab 100 mcg 100 mcg Oral Daily 0630 Maria Del Carmen Cruz CRNP 100 mcgat 12/31/24 0614 omeprazole (PriLOSEC) cap 20 mg 20 mg Oral Daily(AM) Akanksha Greer DO 20 mg at 12/31/24 0826 ondansetron (Zofran) tab 4 mg 4 mg Oral Q8H PRN Maria Del Carmen Cruz CRNP Oral Hygiene: Mouth Swab with dentifrice Oral Q4H Limited (00;04;12;16) Maria Del Carmen Cruz CRNP Given at 12/31/24 0400 senna (Senokot) 1 Tablet 1 Tablet Oral BID(AM/PM) Jason Sheppard DO 1 Tablet at 12/31/24 0826 sodium chloride 0.9 % flush peripheral fernando 3 mL 3 mL IV Push Q8H Maria Del Carmen Cruz CRNP 3 mL at 12/31/24 0600 ZUBROD PERFORMANCE SCALE: 2 - ambulatory and capable of all self-care but unable to carry out any work activities, up and about more than 50% of waking hours PHYSICAL EXAMINATION: Most Recent Vital Signs: BP: 127 mmHg/79 mmHg (12/31/24 09) Pulse: 83 (12/31/24 09) Resp: 16 (12/31/24899) Temp: 36.28 C (12/31/24 08) Temp Summary: Temp Min: 36.2 °C (97.2 °F) Max: 36.9 °C (98.4 °F) SpO2: 98 % (12/31/24899) O2 flow rate: 2 L/MIN (12/30/24 0800) Supplemental O2 Delivery: Room Air, None (12/31/24899) Weight: 66.3 kg (146 lb 2.6 oz) (12/31/24 06) Weight: weight recently stable General: alert and oriented, no apparent distress, cognition normal, and speech normal Eyes: sclera non-icteric bilaterally and extra-ocular movements intact bilaterally Head and face: facial strength symmetric Lymphatics: no cervical adenopathy and no supraclavicular adenopathy Lower extremities: non-edematous bilaterally and palpable peripheral pulses bilaterally Upper extremities: non-edematous bilaterally and normal range of motion Neurologic: asymmetric strength, R-side weakness > L-side LABS: Labs reviewed as indicated below: CBC Results: Results for orders placed or performed during the hospital encounter of 12/30/24 CBC Result Value Ref Range WBC 14.58 [...] 11.1 fL nRBCs 0 <=0 /100 WBCs IMAGING: I personally reviewed the following images and diagnostic studies. (Impression copies from medical chart) 12/29/[address] IMPRESSION Widely disseminated disease, including brain, lung, liver, bone, hiro, and subcutaneous metastases. 12/30/24 CT C/A/P IMPRESSION Thoracic and abdominal metastases involving the lungs, liver, lymph nodes, peritoneum, subcutaneoustissues, and bones. 12/30/24 MRI brain IMPRESSION 1. Multiple brain metastases in the bilateral cerebral and cerebellar hemispheres, several of them containing small amount of chronic blood products and/or mineralization. 2. The largest metastasis at the left parietooccipital junction measures up to 2.5 cm and in conjunction with moderate surrounding vasogenic edema is producing a local mass effect. All other metastases are subcentimeter in size without significant edema or mass effect. IMPRESSION: 69F with history of TN L breast cancer diagnosed via biopsy 06/2023, path showed complex cystic lesion with the small detached fragments of adenocarcinoma, ER/MT negative/HER2 Musa negative. S/p bilateral mastectomy on 08/18/2023, L-side pathology showed 5 cm grade 3 invasive ductal carcinoma with positive lymph nodes, pT2 pN1 disease. 09/2023 post b/l mastectomies PET CT showed no FDG PET- CT evidence for residual or metastatic breast cancer. Patient completed adjuvant chemotherapy 02/12/24. Patient completed adjuvant radiation therapy 04/28/24 (at [facility]). Patient now admitted with new widely disseminated disease, including brain, lung, liver, bone, hiro,and subcutaneous metastases. PLAN: Patient was discussed with Dr Martinez. Recommend whole brain RT, +/- JOE. Patient would like to get her radiation closer to home in [place]. Thank you for having asked us to take part in this patient's care. I spent a total of 67 minutes coordinating, documenting, and providing care for this patient excluding time spent in the performance of separately billed services or time spent by another provider/QHP. Cosigned by Luis Martinez MD at 12/31/2024 4:25 PM EDT * Connor Cabrera MD - 12/30/2024 9:48 PM EDTAssociated Order(s): PALLIATIVE MEDICINE CONSULT IP CONSULT NOTE - Palliative Medicine [facility] [place]-[address] [id number] Name: Aixa Cruz Location: [facility] [place] [facility] A434/A Date: 12/30/2024 Time: 9:48 PM REQUESTING SERVICE: Critical Care REASON FOR CONSULT: We have been asked to see this patient for goals of care. " Ordered Notify Me 12/30/24 0255 Palliative Medicine Consult IP ONCE, Routine Complete Discontinue Comments: new onset seizures in the setting of metastatic breast ca with mets to the brain, liver, lung and bone Provider: (Not yet assigned) Question Answer Comment Reason for Consult: Cancer Palliative Medicine To Address: Goals of Care Consulting Provider: Heladio Mariscal " HPI: "Aixa is a 69 y/o female with a PMH significant for depression, anxiety, DLD, hypothyroidism, DM, essential tremor, HTN, lumbar degenerative disc disease, obesity, breast cancer with mets to the lung, brain and bone. Aixa presented to [facility] ED with for evaluation of seizure like activity. While in the ED the patient was reported to have another seizure. She was found to have a large left parietal mass with edema. She received steroids prior to transfer. She had no prior history of seizures and is not on any AEDs. She was transferred to [facility] for neurological services on 12/30/24 to ICU. Onc History: Patient of Dr Zapata: Cancer Diagnosis: Left breast cancer, pathology consistent with complex cystic lesion with the small detached fragments of adenocarcinoma, ER/MT and HER2 Musa negative. She had clinically [...] to 02/12/2024) Completed radiation therapy on 04/28/2024 Oncology History Treatment Summary Treatment Summary Breast carcinoma, female, right (HCC) 09/01/2023 Initial Diagnosis Breast carcinoma, female, right (HCC) 09/25/2023 - 02/12/2024 Chemotherapy OP Dose-Dense AC followed by Paclitaxel weekly (Breast) [id number] 03/24/2024 - 07/28/2024 Supportive Therapy SCP - PORT FLUSH Plan Provider: Eleuterio Zapata MD Treatment goal: Supportive Line of treatment: [No plan line of treatment] " This note was copy/pasted from Dr. Dean, dated on 12/30. PALLIATIVE ENCOUNTER FROM TODAY'S VISIT: 12/30/2024 very pleasant lady interviewed while son, [id number] and were at bedside. She recalls having noted 2-4 weeks ago that this development of nodular lesions 1st over her skull also over the neck and shoulder area, largest over the left parietal area, that was associated after a few days with increasing pain, persistent sharp to stabbing, partially improved with acetaminophen, 6 to 8/10, no significant noticeable exacerbating features. Patient was evaluated by Dr. Zapata, and was recommended to have an MRI of her brain, this then led to an episode where she started having difficulty with approximately, not knowing how to start her vehicle having to be driven home and subsequently developed being generalized tonic-clonic seizure that led to her presenting to [facility] Emergency Department for evaluation and treatment. She was started on steroid treatments and transferred to [facility] Associated 20 lb weight loss over 10 months well on GLP-1, no other major symptom management burden. REVIEW OF SYMPTOMS: [Severity scale of each symptom should be based on how the patient feels now.] 1. Pain Assessment: Yes: Location: see HPI Current Analgesic Regimen: Yes: Acetaminophen 2. Shortness of Breath Assessment: None Current Regimen: None 3. Nausea Assessment: None Current Regimen: Yes: 5-HT3 antagonists: Ondansetron 4. Tiredness/Fatigue Assessment: Yes: Severity: 5 10 Current Regimen: None 5. Drowsiness Assessment: Yes: / 10 6. Depression Assessment: 1. During the past month, has patient been bothered by feeling down, depressed, or hopeless? No 2. During the past month, has patient been bothered by having little interest or pleasure in doing things? No Current Regimen: none 7. Anxiety Assessment: None Current Regimen: None 8. Anorexia/Lack of Appetite: None Current Regimen: None 9. Delirium/Agitation: No Current Regimen: none 10. Well-being Assessment: None 11. Constipation Assessment: Yes Current Regimen: Yes: Stool softener: Docusate and Stimulant laxative (bisacodyl, senna) 12. Insomnia Assessment: None Current Regimen: None 13. Oropharyngeal Secretions or Cough: No Current Regimen: none Rest of the review of systems negative. FUNCTIONALITY: 50% - Ambulation: Mainly sit/lie, Unable to do any work / Extensive disease. Self-care: Considerable assistance required. Intake: Normal or reduced. Conscious level: Full or confusion. ADVANCED DIRECTIVES AND [place] ORDERS FOR LIFE-SUSTAINING TREATMENT: Patient has not completed PAST MEDICAL HISTORY: Past Medical History: Diagnosis [...] (see actual BMI) 03/31/2024 Persistent insomnia 03/31/2024 PAST SURGICAL HISTORY: Past Surgical History: Procedure Laterality Date COLONOSCOPY, DIAGNOSTIC (RECTUM) 02/11/2011 diverticulosis, repeat in 5 years COLONOSCOPY, DIAGNOSTIC (RECTUM) 02/13/2016 adenomatous polyp, repeat 3 yrs/COLONOSCOPY FLEXIBLE PROXIMAL DIAGNOSTIC performed by Silvestre Max MD at [facility]COPY [facility] COLONOSCOPY, DIAGNOSTIC (RECTUM) 07/20/2019 biopsies show adenomatous polyps/recall 3 years/COLONOSCOPY FLEXIBLE PROXIMAL DIAGNOSTIC performed by Sudhakar Martell MD at [facility] COLONOSCOPY, DIAGNOSTIC (RECTUM) 08/23/2022 benign adenomatous polyp, diverticulosis, repeat 3 yrs / COLONOSCOPY FLEXIBLE PROXIMAL DIAGNOSTIC performed by Sudhakar Martell MD at [facility] EGD, FLEXIBLE, DIAGNOSTIC N/A 11/25/2023 ESOPHAGOGASTRODUODENOSCOPY (EGD), FLEXIBLE, TRANSORAL, DIAGNOSTIC performed by Kwesi Nichols MD at [facility] GASTRIC BAND & PORT REMOVAL, LAPAROSCOPIC N/A 08/04/2024 LAPAROSCOPIC GASTRIC RESTRICTIVE SURGERY REMOVE BAND AND PORT performed by Kwesi Nichols MD at [facility] INJECT DX/THER SUBSTANCE INTERLAMINAR LUMBAR/SACRAL W IMAGE GUIDE 11/05/2021 INJECTION SPINE LUMBAR OR SACRAL performed by Raimundo An, DO at OR [facility] INJECT DX/THER SUBSTANCE INTERLAMINAR LUMBAR/SACRAL W IMAGE GUIDE 03/20/2022 INJECTION SPINE LUMBAR OR SACRAL performed by Raimundo Tae An, DO at OR [facility] INJECT DX/THER SUBSTANCE INTERLAMINAR LUMBAR/SACRAL W IMAGE GUIDE 11/13/2022 INJECTION SPINE LUMBAR OR SACRAL performed by Raimundo An, DO at OR [facility] INJECT DX/THER SUBSTANCE INTERLAMINAR LUMBAR/SACRAL W IMAGE GUIDE 05/14/2023 INJECTION SPINE LUMBAR OR SACRAL performed by Raimundo Tae An, DO at OR [facility] INJECT DX/THER SUBSTANCE INTERLAMINAR LUMBAR/SACRAL W IMAGE GUIDE 05/31/2024 INJECTION SPINE LUMBAR OR SACRAL performed by Thom Palomino DO at OR [facility] INJECT DX/THER SUBSTANCE INTERLAMINAR LUMBAR/SACRAL W IMAGE GUIDE Left 10/21/2024 INJECTION SPINE LUMBAR OR SACRAL performed by Thom Palomino DO at OR [facility] TUNN ACC DEV;5 YRS/OLDER Right 09/18/2023 INSERT TUNNELED CENTRAL VENOUS ACCESS WITH SUBQ PORT performed by Marty Quispe Jr., MD at OR [facility] PATIENT EDU, LAP-BAND SURGERY REMOVE CATARACT, INSERT LENS PROSTH Left 04/30/2018 left EXTRACAPSULAR CATARACT REMOVAL WITH INTRAOCULAR LENS performed by Martin Donnelly MD at OR [facility] REMOVE CATARACT, INSERT LENS PROSTH Right 05/12/2018 right EXTRACAPSULAR CATARACT REMOVAL WITH INTRAOCULAR LENS performed by Martin Donnelly MD at OR [facility] REMOVE TONSILS & ADENOIDS, UNDER 12 REVISION OF MIDDLE EAR BONE Dr. Allred SURGICAL PROCEDURE ONLY Right 02/26/2024 Remove right port by Dr Robi Yun. US GUIDED BREAST BIOPSY LEFT Left 06/24/2023 FAMILY HISTORY: Family History Problem Relation Name Age of Onset Coronary Artery disease Mother CABG age 72; tachycardia-lifelong Hypertension Mother Diabetes Mother Arthritis Mother Breast Cancer Mother 72 lumpectomy, radiation Hearing loss Mother age related Neurological Disorder Father seizures, hearing loss Hearing loss Father age related Hearing loss Sister 15 teens Hearing loss Brother age related Stroke Grandmother (Maternal) COD Hearing loss Grandfather (Maternal) began fairly young in life but not congenital Heart Disorder Grandfather (Paternal) [place] Hearing loss Grandfather (Paternal) age related Other (Liang's Esophagus) Son Sloan Asthma Son Sloan Parkinsonism Aunt (Paternal) Cancer Aunt (Paternal) Parkinsonism Uncle (Paternal) Parkinsonism Uncle (Paternal) SOCIAL HISTORY: Social History Tobacco Use Smoking status: Never Smokeless tobacco: Never Vaping Use Vaping status: Never Used Substance Use Topics Alcohol use: Yes Comment: rare Drug use: No Family Support: Spouse: Primary, Child: Secondary, and Other family: Secondary PSYCHOSOCIAL ASSESSMENT: At times, I worry I will be a burden to my family: Other not addressed today Pertinent Social Factors: 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 Excellent support. Strong jose,hindu community is a strong source of support. Restorationism denomination.. ALLERGIES: Patient has no known allergies. PHYSICAL EXAMINATION: Most Recent Vital Signs: BP: 116 mmHg/78 mmHg (12/30/242099) Pulse: 88 (12/30/242099) Resp: 17 (12/30/242099) Temp: 36.78 C (12/30/241999) Temp Summary: Temp Min: 35.9 °C (96.6 °F) Max: 36.8 °C (98.2 °F) SpO2: 98 % (12/30/242099) O2 flow rate: 2 L/MIN (12/30/24 08) Supplemental O2 Delivery: Room Air, None (12/30/242099) Vital Signs Last 24 Hours: Systolic BP: Most Recent Systolic BP Av.1 mmHg Min: 93 mmHg Max: 130 mmHg Temperature: Most Recent Temperature Av.4 C Min: 35.89 C Max: 36.78 C Pulse: Pulse Av.1 Min: 81 Max: 93 Respirations: Resp Av.7 Min: 11 Max: 24 SpO2: SpO2 Av.3 % Min: 94 % Max: 100 % On exam chronically ill appearing, gaunt, normocephalic, atraumatic, large tender, left parietal mass, behind left ear and over right shoulder, anicteric sclerae, normal respiratory effort. Awake, alert and oriented. Normal mood and affect. LABS REVIEWED: yes, reviewed Results for orders placed or performed during [...] Range Phosphorus 3.4 2.5 - 4.8 mg/dL GLUCOSE METER, POINT OF CARE Result Value Ref Range Glucose - POCT 157 (H) 70 - 120 mg/dL GLUCOSE METER, POINT OF CARE Result Value Ref Range Glucose - POCT 218 (H) 70 - 120 mg/dL GLUCOSE METER, POINT OF CARE Result Value Ref Range Glucose - POCT 254 (H) 70 - 120 mg/dL *Note: Due to a large number of results and/or encounters for the requested time period, some results have not been displayed. A complete set of results can be found in Results Review. IMAGING REVIEWED: yes, reviewed EXAM MRI scan of the brain without and with intravenous contrast, including the brain lab protocol, and DTI (diffusion tensor imaging) of the brain weighs white matter tractography - 12/30/2024. HISTORY 68 years old female with breast carcinoma and brain metastases scheduled for surgery. TECHNIQUE Multiplanar multisequential magnetic resonance imaging of the brain was performed before and after uneventful intravenous administration of gadolinium containing contrast as per brain tumor protocol and brain lab protocol. DTI imaging of the brain was performed in 3 orthogonal planes. Color coded white matter tractography maps were generated on the dedicated workstation. COMPARISON PET-CT scan from yesterday. FINDINGS There are multiple solid heterogeneously enhancing metastases in the bilateral cerebral and cerebellar hemispheres. The largest metastasis at the left parietooccipital junction measures up to 2.1 x 1.7 by 2.5 cm in the anteroposterior, transverse, and craniocaudal dimension. This tumor and surrounding moderate vasogenic edema are causing a local mass effect with partial effacement of surrounding cortical sulci and slight impingement of the posterior aspect of the left lateral ventricle. All other metastatic lesions are subcentimeter in size without significant associated edema or mass effect.Small foci of susceptibility artifact in the largest left parietooccipital and several other metastases probably represent small amount of chronic blood products and/or mineralization. There is no evidence of hemorrhage, midline shift, hydrocephalus, or extraaxial fluid collection. Mild generalizedage-related cerebral parenchymal atrophy is appreciated with compensatory dilatation of the ventricles, sulci, and basal cisterns. A few tiny nonspecific foci of T2 FLAIR hyperintensity in the bilateral cerebral white matter probably represent mild chronic small vessel ischemic changes. Themidline structures, including the pituitary gland, corpus callosum, brainstem, pineal region, and craniocervical junction are unremarkable. No restricted diffusion is identified to suspect acute ischemia. Expected flow voids are maintained in the main intracranial vessels. No calvarial abnormalities are detected. The [place] ocular lenses were surgically replaced; otherwise, the intraorbital contents are within normal limits. The paranasal sinuses and mastoid air cells are clear and well aerated. The brain metastases do not affect the main white matter tracks, which appear unremarkable. IMPRESSION IMPRESSION 1. Multiple brain metastases in the bilateral cerebral and cerebellar hemispheres, several of them containing small amount of chronic blood products and/or mineralization. 2. The largest metastasis at the left parietooccipital junction measures up to 2.5 cm and in conjunction with moderate surrounding vasogenic edema is producing a local mass effect. All other metastases are subcentimeter in size without significant edema or mass effect. 3. Chronic unrelated findings as detailed above. Exam Ended: 12/30/24 18:07 Last Resulted: 12/30/24 18:40 ASSESSMENT/PLAN: Aixa Cruz is a/an 69 year old female referred for consultation to Palliative Medicine with theprimary diagnosis of: Cancer: Metastatic left breast invasive ductal carcinoma, ER/MT and HER2 Musa negative, staged as T2 N0 disease upon diagnosis in August 2023, now with evidence of widely metastatic disease over lymph nodes, liver, osseous skeleton, now suspected over brain/central nervous system. She was treated with bilateral mastectomy in August 18, 2023 and completed adjuvant chemotherapy with dose dense AC followed by paclitaxel, as well as radiation therapy that was completed in April of 2024. Now admitted with development of neurocognitive changes together with new onset seizures beliefs be secondary to brain lesions suspected to be metastatic disease from a brain primary. Patient is scheduled to undergo resection and biopsy with subsequent NSG testing. Secondary Diagnoses are acquired hypothyroidism, hyperlipidemia, osteoporosis, vitamin-D deficiency, type 2 diabetes mellitus (insulin-dependent), essential hypertension, obesity class 1, generalizedosteoarthritis, history of depressive disorder with generalized anxiety disorder. Difficult conversations regarding setting goals of care: Introduced palliative care services. Discussed with patient and family understanding of disease etiology, trajectory of illness, and nature ofchronically progressive illness. Present during conversation with Dr. Cole, addressed role of palliative systemic treatment to look to stabilize disease. Communication was the we were before potentially very treatable disease. Patient has expressed a desire to pursue aggressive disease directed therapies as long as they are offered and deemed to be of meaningful benefit for life prolonging purposes. We did explore the importance of focusing on those elements of life that she finds to be most important, establishing based on values and beliefs what she would deemed acceptable and not acceptable. Encouraged further conversation with her family. Counseling and education on advance care planning, surrogacy. Provided emotional support through reflective listening and empathetic engagement. Triple negative breast cancer now with suspected metastatic SUSTAINABILITY OFFICER lesions: Goals to proceed with resection/excisional biopsy, conducting further molecular analysis/NGS analysis to direct further disease directed therapies. Seizure disorder/metastatic brain disease: Currently being provided with management of dexamethasone 4 mg by mouth every 6 hours, GI protection with PPI, and levetiracetam 500 mg by mouth twice daily. As soon as deemed adequate to initiate taper, look to dose dexamethasone in the morning and noon no later given prior history of persistent insomnia. Provide dosing with food. Neoplasm related pain: Appropriate to continue for now with as needed acetaminophen 650 mg by mouthevery 6 hours as needed. If insufficient relief may consider dosing with buprenorphine 0.1 mg IV every 6 hours as needed for [id number] neoplasm related pain. Other constipation/opioid-induced constipation: Patient to be continued continued on Senokot 1 tablet by mouth twice daily. Monitor symptom burden and adjust regimen as needed. Nausea/vomiting: Not an active issue, reasonable for now to keep the ondansetron at 4 mg IV/PO every 8 hours as needed. We appreciate your consult request and the opportunity to assist in the care of your patient. Please do not hesitate to call or page with additional questions or concerns. We will always try to remain available. * Farhana Crisostomo, LULY-OFFICE COORDINATOR RECEPTIONIST - 12/30/2024 2:48 PM EDT CLINICAL BEDSIDE SWALLOW EVALUATION - Speech-Language Pathology [address] [id number] Name: Aixa Cruz Location: [facility] [place] A434/A Date: 12/30/2024 Time: 2:48 PM Patient Status: Inpatient Insurance: Payor: [employer] [place] ([place] Clean) / Plan: [employer] / Product Type: *No Product type* / GENERAL INFORMATION: Admission Date: 12/30/2024 Referring Physician: DO Silver Pertinent Medical History: Per Epic H&P 12/30/24: " Aixa is a 69 y/o female with a PMH significant for depression, anxiety, DLD, hypothyroidism, DM, essential tremor, HTN, lumbar degenerative disc disease, obesity, breast cancer with mets to the lung, brain and bone. Aixa presented to [facility]'s ED with for evaluation of seizure like activity. While in the ED the patient was reported to have another seizure. She has no prior history of seizures and is not on any AEDs. She is being transferred to [facility] [place] [facility] for neurological services. At the time of her ICU arrival the patient is alert and oriented to person, place and event. She explained that she was at Bible study tonight went she started to "feel off" noting that she couldn't figure out how to get out of her car. She denied headache, motor or visual deficits. Her then took her to the ED for evaluation. At the time of my assessment the patient is complaint free and neurologically intact. " Per CT C/A/P 12/30/24: "IMPRESSION Thoracic and abdominal metastases involving the lungs, liver, lymph nodes, peritoneum, subcutaneoustissues, and bones." Past Medical History: Diagnosis Date Depression with anxiety 10/31/2020 Dyslipidemia, goal to be determined Essential and other specified forms of tremor essential tremor High risk for fracture due to osteoporosis by DEXA scan 10/02/2018 HTN, goal below 140/90 Lumbar degenerative disc disease 03/31/2024 Non compliance w medication regimen 09/16/2019 Obesity, Class I, BMI 30.0-34.9 (see actual BMI) 03/31/2024 Persistent insomnia 03/31/2024 Past Surgical History: Procedure Laterality Date COLONOSCOPY, DIAGNOSTIC (RECTUM) 02/11/2011 diverticulosis, repeat in 5 years COLONOSCOPY, DIAGNOSTIC (RECTUM) 02/13/2016 adenomatous polyp, repeat 3 yrs/COLONOSCOPY FLEXIBLE PROXIMAL DIAGNOSTIC performed by Silvestre Max MD at END[facility]COPY [facility] COLONOSCOPY, DIAGNOSTIC (RECTUM) 07/20/2019 biopsies show adenomatous polyps/recall 3 years/COLONOSCOPY FLEXIBLE PROXIMAL DIAGNOSTIC performed by Sudhakar Martell MD at [facility] COLONOSCOPY, DIAGNOSTIC (RECTUM) 08/23/2022 benign adenomatous polyp, diverticulosis, repeat 3 yrs / COLONOSCOPY FLEXIBLE PROXIMAL DIAGNOSTIC performed by Sudhakar Martell MD at [facility] EGD, FLEXIBLE, DIAGNOSTIC N/A 11/25/2023 ESOPHAGOGASTRODUODENOSCOPY (EGD), FLEXIBLE, TRANSORAL, DIAGNOSTIC performed by Kwesi Nichols MD at [facility] GASTRIC BAND & PORT REMOVAL, LAPAROSCOPIC N/A 08/04/2024 LAPAROSCOPIC GASTRIC RESTRICTIVE SURGERY REMOVE BAND AND PORT performed by Kwesi Nichols MD at [facility] INJECT DX/THER SUBSTANCE INTERLAMINAR LUMBAR/SACRAL W IMAGE GUIDE 11/05/2021 INJECTION SPINE LUMBAR OR SACRAL performed by [place] Tae An, DO at OR [facility] INJECT DX/THER SUBSTANCE INTERLAMINAR LUMBAR/SACRAL W IMAGE GUIDE 03/20/2022 INJECTION SPINE LUMBAR OR SACRAL performed by [place] Tae An, DO at OR [facility] INJECT DX/THER SUBSTANCE INTERLAMINAR LUMBAR/SACRAL W IMAGE GUIDE 11/13/2022 INJECTION SPINE LUMBAR OR SACRAL performed by Raimundo An, DO at OR [facility] INJECT DX/THER SUBSTANCE INTERLAMINAR LUMBAR/SACRAL W IMAGE GUIDE 05/14/2023 INJECTION SPINE LUMBAR OR SACRAL performed by Raimundo An, DO at OR [facility] INJECT DX/THER SUBSTANCE INTERLAMINAR LUMBAR/SACRAL W IMAGE GUIDE 05/31/2024 INJECTION SPINE LUMBAR OR SACRAL performed by Thom Palomino DO at OR [facility] INJECT DX/THER SUBSTANCE INTERLAMINAR LUMBAR/SACRAL W IMAGE GUIDE Left 10/21/2024 INJECTION SPINE LUMBAR OR SACRAL performed by Georgette, Max Navi, DO at OR [facility] INSER TUNN ACC DEV;5 YRS/OLDER Right 09/18/2023 INSERT TUNNELED CENTRAL VENOUS ACCESS WITH SUBQ PORT performed by Marty Quispe Jr., MD at OR [facility] PATIENT EDU, LAP-BAND SURGERY REMOVE CATARACT, INSERT LENS PROSTH Left 04/30/2018 left EXTRACAPSULAR CATARACT REMOVAL WITH INTRAOCULAR LENS performed by Martin Donnelly MD at OR [facility] REMOVE CATARACT, INSERT LENS PROSTH Right 05/12/2018 right EXTRACAPSULAR CATARACT REMOVAL WITH INTRAOCULAR LENS performed by Martin Donnelly MD at OR [facility] REMOVE TONSILS & ADENOIDS, UNDER 12 REVISION OF MIDDLE EAR BONE Dr. Allred SURGICAL PROCEDURE ONLY Right 02/26/2024 Remove right port by Dr Robi Yun. US GUIDED BREAST BIOPSY LEFT Left 06/24/2023 Current Diet/Dysphagia History: NPO except meds; nursing dysphagia screen not completed. Pt denies any hx of dysphagia and reports consuming regular solids with thin liquids prior to admission. Cognitive-Communication: Pt awake and alert, able to follow basic commands, and express wants/needsappropriately. Barriers to Learning: Medical Status Hearing Acuity: Deferred Best Learning Method: Auditory Pain: No complaints of pain ORAL MECHANISM EXAM: Facial Symmetry Within functional limits Labial Function Within functional limits Lingual Function Within functional limits Velar Function Did not assess Dentition: Natural PROTECTIVE MECHANISMS: Volitional Swallow Within Functional Limits Volitional Throat Clearing Did not test Volitional Cough Did not test Vocal Quality Within Functional Limits Tracheostomy Tube: Not Present Ventilator Status: Not Applicable SWALLOWING FUNCTION: ORAL PREPARATION PHASE: Puree (IDDSI Level 4): Within functional limits Soft and Bite-Sized (IDDSI Level 6): Within functional limits Regular (IDDSI Level 7): Within functional limits Thin Liquid (IDDSI Level 0): Within functional limits ORAL PHASE: Puree (IDDSI Level 4): Within functional limits Soft and Bite-Sized (IDDSI Level 6): Within functional limits Regular (IDDSI Level 7): Within functional limits Thin Liquid (IDDSI Level 0): Within functional limits PHARYNGEAL PHASE: Puree (IDDSI Level 4): Within functional limits Soft and Bite-Sized (IDDSI Level 6): Within functional limits Regular (IDDSI Level 7): Within functional limits Thin Liquid (IDDSI Level 0): Within functional limits RECOMMENDATIONS/PLAN: Videofluoroscopy: Not indicated Diet Level: Regular Liquid Level: Thin Presentation of Medication: As tolerated Positioning: Seated with 90 degree hip flexion Level of Supervision: Assist PRN Use of Straws: allowed Compensatory Techniques to be Utilized During PO Intake: Small Bites/Sips, Alternate Solids & Liquids, and Slow Rate of Intake Additional findings: N/A ANTICIPATED FREQUENCY (ON EVAL): N/A DIAGNOSIS/IMPRESSIONS: Diagnosis/Impressions: Oral and pharyngeal phases within functional limits Pt was presented with trials of thin liquids (IDDSI Level 0) via tsp, cup, and straw, puree (IDDSI level 4), soft & bite-sized (IDDSI level 6), and regular (IDDSI level 7) consistencies. Oral phase was judged to be within functional limits for trials presented. Pharyngeal phase suspected to be within functional limits for swallow timing and hyolaryngeal elevation. No overt s/s of penetration/aspiration noted for thin liquids via tsp, cup, and straw, puree, soft & bite-sized, or regular consistencies. Rehab Potential: N/A TREATMENT PLAN: Swallowing Treatment: Not Indicated Treatment Goals: N/A Additional Recommendations: If s/s of aspiration or difficulty noted, downgrade as appropriate and re-consult OFFICE COORDINATOR RECEPTIONIST. The above information was discussed with the patient/RN/Silver. Yes The patient/RN/Dr. Sheppard was in Agreement * Farhana Crisostomo CCC-OFFICE COORDINATOR RECEPTIONIST - 12/30/2024 2:03 PM EDTAssociated Order(s): ADULT SPEECH THERAPY CONSULT IP (ACUTE CARE REHAB) PROGRESS NOTE - Speech-Language Pathology [facility] [place]-[address] [id number] Name: Aixa Cruz Location: [facility] [place] A434/A Date: 12/30/2024 Time: 2:03 PM Patient Status: Inpatient Insurance: Payor: [employer] ([place] Clean) / Plan: [employer] / Product Type: *No Product type* / Patient Age: [age] year old Consult received and appreciated. Attempted to see pt for bedside swallow evaluation. Pt currently with Palliative Medicine. Will f/u as pt appropriate/available and as able. * Paula Dean MD - 12/30/2024 7:23 AM EDTAssociated Order(s): ONCOLOGY CONSULT IP CONSULT - Oncology [address] [id number] Name: Aixa Cruz Location: [facility] [place] A434/A Date: 12/30/2024 Time: 7:24 AM REQUESTING SERVICE: Critical care REASON FOR CONSULT: new onset seizures in the setting of metastatic breast ca with mets to the brain, liver, lung and bone Adm Dx: REFERRING PHYSICIAN: Dr Ly DIAGNOSIS: New onset seizures HISTORY OF PRESENT ILLNESS: Aixa is a 69 y/o female with a PMH significant for depression, anxiety, DLD, hypothyroidism, DM, essential tremor, HTN, lumbar degenerative disc disease, obesity, breastcancer with mets to the lung, brain and bone. Aixa presented to [facility]'s ED with for evaluation of seizure like activity. While in the ED the patient was reported to have another seizure. She was found to have a large left parietal mass with edema. She received steroids prior to transfer. She had no prior history of seizures and is not on any AEDs. She was transferred to [facility] [place] [facility] for neurological services on 12/30/24 to ICU. Onc History: Patient of Dr Zapata: Cancer Diagnosis: Left breast cancer, pathology consistent with complex cystic lesion with the small detached fragments of adenocarcinoma, ER/MT and HER2 Musa negative. She had clinically [...] to 02/12/2024) Completed radiation therapy on 04/28/2024 Treatment Summary Breast carcinoma, female, right (HCC) 09/01/2023 Initial Diagnosis Breast carcinoma, female, right (HCC) 09/25/2023 - 02/12/2024 Chemotherapy OP Dose-Dense AC followed by Paclitaxel weekly (Breast) [id number] 03/24/2024 - 07/28/2024 Supportive Therapy SCP - PORT FLUSH Plan Provider: Eleuterio Zapata MD Treatment goal: Supportive Line of treatment: [No plan line of treatment] PAST MEDICAL HISTORY: Past Medical History: Diagnosis [...] (see actual BMI) 03/31/2024 Persistent insomnia 03/31/2024 PAST SURGICAL HISTORY: Past Surgical History: Procedure Laterality Date COLONOSCOPY, DIAGNOSTIC (RECTUM) 02/11/2011 diverticulosis, repeat in 5 years COLONOSCOPY, DIAGNOSTIC (RECTUM) 02/13/2016 adenomatous polyp, repeat 3 yrs/COLONOSCOPY FLEXIBLE PROXIMAL DIAGNOSTIC performed by Silvestre Max MD at [facility]COPY [facility] COLONOSCOPY, DIAGNOSTIC (RECTUM) 07/20/2019 biopsies show adenomatous polyps/recall 3 years/COLONOSCOPY FLEXIBLE PROXIMAL DIAGNOSTIC performed by Sudhakar Martell MD at [facility] COLONOSCOPY, DIAGNOSTIC (RECTUM) 08/23/2022 benign adenomatous polyp, diverticulosis, repeat 3 yrs / COLONOSCOPY FLEXIBLE PROXIMAL DIAGNOSTIC performed by Sudhakar Martell MD at [facility] EGD, FLEXIBLE, DIAGNOSTIC N/A 11/25/2023 ESOPHAGOGASTRODUODENOSCOPY (EGD), FLEXIBLE, TRANSORAL, DIAGNOSTIC performed by Kwesi Nichols MD at [facility] GASTRIC BAND & PORT REMOVAL, LAPAROSCOPIC N/A 08/04/2024 LAPAROSCOPIC GASTRIC RESTRICTIVE SURGERY REMOVE BAND AND PORT performed by Kwesi Nichols MD at [facility] INJECT DX/THER SUBSTANCE INTERLAMINAR LUMBAR/SACRAL W IMAGE GUIDE 11/05/2021 INJECTION SPINE LUMBAR OR SACRAL performed by Raimundo An DO at [facility] INJECT DX/THER SUBSTANCE INTERLAMINAR LUMBAR/SACRAL W IMAGE GUIDE 03/20/2022 INJECTION SPINE LUMBAR OR SACRAL performed by Raimundo An DO at OR [facility] INJECT DX/THER SUBSTANCE INTERLAMINAR LUMBAR/SACRAL W IMAGE GUIDE 11/13/2022 INJECTION SPINE LUMBAR OR SACRAL performed by Raimundo An DO at OR [facility] INJECT DX/THER SUBSTANCE INTERLAMINAR LUMBAR/SACRAL W IMAGE GUIDE 05/14/2023 INJECTION SPINE LUMBAR OR SACRAL performed by Raimundo An, at OR [facility] INJECT DX/THER SUBSTANCE INTERLAMINAR LUMBAR/SACRAL W IMAGE GUIDE 05/31/2024 INJECTION SPINE LUMBAR OR SACRAL performed by Thom Palomino DO at OR [facility] INJECT DX/THER SUBSTANCE INTERLAMINAR LUMBAR/SACRAL W IMAGE GUIDE Left 10/21/2024 INJECTION SPINE LUMBAR OR SACRAL performed by Thom Palomino DO at OR [facility] INSER TUNN ACC DEV;5 YRS/OLDER Right 09/18/2023 INSERT TUNNELED CENTRAL VENOUS ACCESS WITH SUBQ PORT performed by Marty Quispe Jr., MD at OR [facility] PATIENT EDU, LAP-BAND SURGERY REMOVE CATARACT, INSERT LENS PROSTH Left 04/30/2018 left EXTRACAPSULAR CATARACT REMOVAL WITH INTRAOCULAR LENS performed by Martin Donnelly MD at OR [facility] REMOVE CATARACT, INSERT LENS PROSTH Right 05/12/2018 right EXTRACAPSULAR CATARACT REMOVAL WITH INTRAOCULAR LENS performed by Martin Donnelly MD at OR [facility] REMOVE TONSILS & ADENOIDS, UNDER 12 REVISION OF MIDDLE EAR BONE Dr. Allred SURGICAL PROCEDURE ONLY Right 02/26/2024 Remove right port by Dr Robi Yun. US GUIDED BREAST BIOPSY LEFT Left 06/24/2023 FAMILY HISTORY: Family History Problem Relation Name Age of Onset Coronary Artery disease Mother CABG age 72; tachycardia-lifelong Hypertension Mother Diabetes Mother Arthritis Mother Breast Cancer Mother 72 lumpectomy, radiation Hearing loss Mother age related Neurological Disorder Father seizures, hearing loss Hearing loss Father age related Hearing loss Sister 15 teens Hearing loss Brother age related Stroke Grandmother (Maternal) COD Hearing loss Grandfather (Maternal) began fairly young in life but not congenital Heart Disorder Grandfather (Paternal) AL Hearing loss Grandfather (Paternal) age related Other (Liang's Esophagus) Son Sloan Asthma Son Sloan Parkinsonism Aunt (Paternal) Cancer Aunt (Paternal) Parkinsonism Uncle (Paternal) Parkinsonism Uncle (Paternal) SOCIAL HISTORY: Social History Tobacco Use Smoking status: Never Smokeless tobacco: Never Vaping Use Vaping status: Never Used Substance Use Topics Alcohol use: Yes Comment: rare Drug use: No ALLERGIES: Patient has no known allergies. REVIEW OF SYSTEMS: JOE resoled post surgery, has palpable nodules on back of right shoulder and behind left ear which are painful, struggling with cognition at times, had 20 pound weight loss but was on mounjaro, reports peripheral neuropathy, _ loss of balance, couldn't remember how to start car and was taken to ER. PHYSICAL EXAM: Most Recent Vital Signs: BP: 109 mmHg/63 mmHg (12/30/24699) Pulse: 81 (12/30/24699) Resp: 14 (12/30/24699) Temp: 36.5 C (12/30/24599) Temp Summary: Temp Min: 35.9 °C (96.6 °F) Max: 36.5 °C (97.7 °F) SpO2: 98 % (12/30/24699) O2 flow rate: 2 L/MIN (12/30/24699) Supplemental O2 Delivery: Nasal Cannula (12/30/24699) PE: ECOG PS uncertain General: appears acutely ill but not in acute distress HEENT:Has bandage on head, PERRL, healing area on right side of tongue Lungs:CTA without use of accessory muscles, Card:S1S2 RRR Abd:Soft non tender EXT:HALE with equal strength bilaterally SKN: Palpable hard nodules behind left ear and right shoulder. LABS: I have personally reviewed the following labs CBC/DIFF CHEMISTRY Lab results within last 7 days (see chart for full results) Units 12/30/24 0522 BUN mg/dL 14 CREATININE mg/dL 0.5 EGFR mL/min >90 SODIUM mmol/L 135 POTASSIUM mmol/L 4.5 CHLORIDE mmol/L 101 CALCIUM mg/dL 9.2 Phosphorus mg/dL 3.4 Magnesium mg/dL 2.0 CO2 mmol/L 21* ANION GAP mmol/L 13 GLUCOSE mg/dL 154* Lab results within last 7 days (see chart for full results) Units 12/30/24 0522 WBC K/uL 11.49* HGB g/dL 11.6* PLT K/uL 316 LFTs Lab results within last 7 days (see chart for full results) Units 12/30/24 0310 Albumin g/dL 3.8 Protein g/dL 7.3 AST U/L 68* ALT U/L 64* Alkaline Phosphatase U/L 204* Bilirubin, Total mg/dL 0.2 Bilirubin, Direct mg/dL 0.1 RADIOLOGY: 12/29/24: PET CT: IMPRESSION Widely disseminated disease, including brain, lung, liver, bone, hiro, and subcutaneous metastases. 10/29/23: NM Brain: IMPRESSION Asymmetric dopamine transporter distribution, truncated on the right. Findings suggest Parkinsoniansyndrome, such as Parkinson's disease, multiple systems atrophy, or progressive supranuclear palsy. PATHOLOGY: 06/24/23: A. Left breast, 2:00 complex cystic lesion, core biopsy: Cores of breast tissue with few small detached fragments of adenocarcinoma 06/27/23 ER/MT/HER2 TMB 3.79, MSI 1.32, Tier 1: PIK3CA ER -, MT- ,HER2 -. 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 We reviewed all available records togetherincluding radiographic reports and images, pathologic reports, operative reports, procedure notes, and all available notes created by all medical providers involved in this case. I discussed the diagnosis, nature of the proposed intervention and its intended benefits, risks and adverse effects. Also discussed medically reasonable alternatives and their benefits, risks and adverse effects. Will need to await tissue diagnosis to confirm type of cancer and stage Will need to order NGS if this is cancer -Neurology is following -Keppra 500mg BID. 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 Left temporoparietal slowing suggesting focal cerebral dysfunction in that region. 2. Diffuse slowing suggesting a mild degree of diffuse or multifocal cerebral dysfunction of non-specific etiology. No epileptiform discharges or electrographic seizures were captured. Neurosurgical team is following -Ordered MRI brain, CT CAP to complete staging evaluation -Recommended Palliative consult -Recommended Radiation Oncology Awaiting possible surgical intervention - Recommend consult Radiation Oncology, -awaiting possible brain biopsy and path interpretation -Fu outpt Dr Zapata 01/12/25 after pathology has been obtained If this is cancer, then most likely treatment would be palliative and involve systemic chemo +/- RT Patient is seen and examined with Dr Dean. I spent a total of 80 minutes coordinating, documenting, and providing care for this patient excluding time spent in the performance of separately billed services or time spent by another provider/QHP. I have reviewed the advanced practitioner's documentation on the date of service referenced in note, and I agree with, and take responsibility for the plan of care. * Jordan Donaldson MD - 12/30/2024 2:49 AM EDTAssociated Order(s): NEUROLOGY CONSULT IP CONSULT - Neurology [address] [id number] Name: Aixa Cruz Location: [facility] [place] A434/A Date: 12/30/2024 Time: 2:49 AM Date and Time Neurology Team Notified of Consult: 12/30/2024 at 0250 Patient location: HOSPITAL. I was not in a hospital or clinic location. After connecting through [employer], patient was identified by name and date of and/or wristband checked. 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 My office door was closed. No one else was in the room with me.. Patient acknowledged consent and understanding of privacy and security of the Telemedicine visit and gave permission to have a telemedicine presenter stay in the room in order to assist with the history and to conduct the exam as needed. I informed the patient that I have reviewed their record in [employer] and presented the opportunity for them to ask any questions regarding the visit today. The patient agreed to participate. REQUESTING SERVICE: Critical Care Medicine REASON FOR CONSULT: seizure Person Providing History: Patient, chart review HPI: 69 year old female with metastatic breast cancer with metastases to liver, lung, bone, and brain evidenced on PET CT. Transferred from [facility] for new onset seizure. Found to have large left parietal mass with edema. Given steroids and transferred to [facility] [place] for further work up. She was treated with 2x doses of 20mg/kg Keppra. At the time of our encounter Aixa felt tired but was otherwise denying lateralized weakness, sensory changes, speech/language difficulties. PAST MEDICAL HISTORY: Past Medical History: Diagnosis [...] (see actual BMI) 03/31/2024 Persistent insomnia 03/31/2024 PAST SURGICAL HISTORY: Past Surgical History: Procedure Laterality Date COLONOSCOPY, DIAGNOSTIC (RECTUM) 02/11/2011 diverticulosis, repeat in 5 years COLONOSCOPY, DIAGNOSTIC (RECTUM) 02/13/2016 adenomatous polyp, repeat 3 yrs/COLONOSCOPY FLEXIBLE PROXIMAL DIAGNOSTIC performed by Silvestre Max MD at ENDOSCOPY [facility] COLONOSCOPY, DIAGNOSTIC (RECTUM) 07/20/2019 biopsies show adenomatous polyps/recall 3 years/COLONOSCOPY FLEXIBLE PROXIMAL DIAGNOSTIC performed by Sudhakar Martell MD at ENDOSCOPY [facility] COLONOSCOPY, DIAGNOSTIC (RECTUM) 08/23/2022 benign adenomatous polyp, diverticulosis, repeat 3 yrs / COLONOSCOPY FLEXIBLE PROXIMAL DIAGNOSTIC performed by Sudhakar Martell MD at ENDOSCOPY [facility] EGD, FLEXIBLE, DIAGNOSTIC N/A 11/25/2023 ESOPHAGOGASTRODUODENOSCOPY (EGD), FLEXIBLE, TRANSORAL, DIAGNOSTIC performed by Kwesi Nichols MD at [facility] GASTRIC BAND & PORT REMOVAL, LAPAROSCOPIC N/A 08/04/2024 LAPAROSCOPIC GASTRIC RESTRICTIVE SURGERY REMOVE BAND AND PORT performed by Kwesi Nichols MD at [facility] INJECT DX/THER SUBSTANCE INTERLAMINAR LUMBAR/SACRAL W IMAGE GUIDE 11/05/2021 INJECTION SPINE LUMBAR OR SACRAL performed by Raimundo An DO at [facility] INJECT DX/THER SUBSTANCE INTERLAMINAR LUMBAR/SACRAL W IMAGE GUIDE 03/20/2022 INJECTION SPINE LUMBAR OR SACRAL performed by Raimundo An DO at OR [facility] INJECT DX/THER SUBSTANCE INTERLAMINAR LUMBAR/SACRAL W IMAGE GUIDE 11/13/2022 INJECTION SPINE LUMBAR OR SACRAL performed by Raimundo An DO at [facility] INJECT DX/THER SUBSTANCE INTERLAMINAR LUMBAR/SACRAL W IMAGE GUIDE 05/14/2023 INJECTION SPINE LUMBAR OR SACRAL performed by Raimundo An DO at [facility] INJECT DX/THER SUBSTANCE INTERLAMINAR LUMBAR/SACRAL W IMAGE GUIDE 05/31/2024 INJECTION SPINE LUMBAR OR SACRAL performed by Thom Palomino DO at [facility] INJECT DX/THER SUBSTANCE INTERLAMINAR LUMBAR/SACRAL W IMAGE GUIDE Left 10/21/2024 INJECTION SPINE LUMBAR OR SACRAL performed by Thom Palomino DO at OR [facility] TUNN ACC DEV;5 YRS/OLDER Right 09/18/2023 INSERT TUNNELED CENTRAL VENOUS ACCESS WITH SUBQ PORT performed by Marty Quispe Jr., MD at OR [facility] PATIENT EDU, LAP-BAND SURGERY REMOVE CATARACT, INSERT LENS PROSTH Left 04/30/2018 left EXTRACAPSULAR CATARACT REMOVAL WITH INTRAOCULAR LENS performed by Martin Donnelly MD at OR [facility] REMOVE CATARACT, INSERT LENS PROSTH Right 05/12/2018 right EXTRACAPSULAR CATARACT REMOVAL WITH INTRAOCULAR LENS performed by Martin Donnelly MD at OR [facility] REMOVE TONSILS & ADENOIDS, UNDER 12 REVISION OF MIDDLE EAR BONE Dr. Allred SURGICAL PROCEDURE ONLY Right 02/26/2024 Remove right port by Dr Robi Yun. US GUIDED BREAST BIOPSY LEFT Left 06/24/2023 FAMILY HISTORY: Family History Problem Relation Name Age of Onset Coronary Artery disease Mother CABG age 72; tachycardia-lifelong Hypertension Mother Diabetes Mother Arthritis Mother Breast Cancer Mother 72 lumpectomy, radiation Hearing loss Mother age related Neurological Disorder Father seizures, hearing loss Hearing loss Father age related Hearing loss Sister 15 teens Hearing loss Brother age related Stroke Grandmother (Maternal) COD Hearing loss Grandfather (Maternal) began fairly young in life but not congenital Heart Disorder Grandfather (Paternal) AL Hearing loss Grandfather (Paternal) age related Other (Liang's Esophagus) Son Sloan Asthma Son Sloan Parkinsonism Aunt (Paternal) Cancer Aunt (Paternal) Parkinsonism Uncle (Paternal) Parkinsonism Uncle (Paternal) SOCIAL HISTORY: Social History Tobacco Use Smoking status: Never Smokeless tobacco: Never Vaping Use Vaping status: Never Used Substance Use Topics Alcohol use: Yes Comment: rare Drug use: No ALLERGIES: Patient has no known allergies. CURRENT MEDICATIONS: Note that completed medications (per the MAR) continue to display for 24 hours. Ordered medicationsto be given in the future also display. Current Facility-Administered Medications Medication Dose Route Frequency Provider atorvaSTATin (Lipitor) tab 80 mg 80 mg Oral Daily(AM) Maria Del Carmen Cruz CRNP chlorHEXIDINE (Periogard) 0.12 % oral rinse 15 mL 15 mL Oral mucosal membrane BID (0800,1999) Maria Del Carmen Cruz CRNP dexAMETHasone (Decadron) tab 4 mg 4 mg Oral BID(AM/PM) Maria Del Carmen Cruz CRNP dextrose 50% inj 25 mL 25 mL IV Push PRN Maria Del Carmen Cruz CRNP dextrose 50% inj 50 mL 50 mL IV Push PRN Maria Del Carmen Cruz CRNP glucagon (Glucagen) inj 1 mg 1 mg Intramuscular PRN Maria Del Carmen Cruz CRNP Glucose (Glutose 15) 40 % gel 15 g of glucose 15 g of glucose Oral PRN Maria Del Carmen Cruz CRNP Glucose (Glutose 15) 40 % gel 30 g of glucose 30 g of glucose Oral PRN Maria Del Carmen Cruz CRNP glucose chew tab 16 g 16 g Oral PRN Maria Del Carmen Cruz CRNP insulin aspart (NovoLOG) inj Subcutaneous Q6H Maria Del Carmen Cruz CRNP levETIRAcetam (Keppra) tab 500 mg 500 mg Oral BID(AM/PM) Maria Del Carmen Cruz CRNP levothyroxine (Levoxyl) tab 100 mcg 100 mcg Oral Daily 0630 Maria Del Carmen Cruz CRNP ondansetron (Zofran) tab 4 mg 4 mg Oral Q8H PRN Maria Del Carmen Cruz CRNP Oral Hygiene: Mouth Swab with dentifrice Oral Q4H Limited (00;04;12;16) Maria Del Carmen Cruz CRNP senna (Senokot) 1 Tablet 1 Tablet Oral Daily(AM) Maria Del Carmen Cruz CRNP sodium chloride 0.9 % flush peripheral fernando 3 mL 3 mL IV Push Q8H Gundlach, Maria Del Carmen Laney, CARD HAND ROS: All negative other than as noted in HPI PHYSICAL EXAMINATION: Most Recent Vital Signs: BP: 130 mmHg/82 mmHg (12/30/24244) Pulse: 93 (12/30/24244) Resp: 24 (12/30/24244) Temp: 36.22 C (12/30/24244) Temp Summary: Temp Min: 36.2 °C (97.2 °F) Max: 36.2 °C (97.2 °F) SpO2: 98 % (12/30/24244) O2 flow rate: 2 L/MIN (12/30/24244) Supplemental O2 Delivery: Nasal Cannula (12/30/24244) Weight: 66.6 kg (146 lb 13.2 oz) (12/30/24309) Height: 152.4 cm (5') (12/30/24309) Body mass index is 28.68 kg/m². Vital Signs Last 24 Hours: Systolic BP: Most Recent Systolic BP Av mmHg Min: 130 mmHg Max: 130 mmHg Temperature: Most Recent Temperature Av.22 C Min: 36.22 C Max: 36.22 C Pulse: Pulse Av Min: 93 Max: 93 Respirations: Resp Av Min: 24 Max: 24 SpO2: SpO2 Av % Min: 98 % Max: 98 % General Examination: Constitutional: Appearance non-obese, no deformities, and well groomed Head/face, ears, nose, throat, mouth: normocephalic, atraumatic. Right lateral tongue bite. Cardiovascular: regular rate and regular rhythm Psychiatric: normal judgement and insight, normal mood, and normal affect Neurologic Examination: Mental Status and Orientation: awake, alert, oriented x 3 Memory: intact to recent and remote recall Attention: normal Knowledge:normal Language: no aphasia Speech: no dysarthria Cranial Nerves: CN 2 - no visual defect on confrontation and pupils round, equal, reactive to light CN 3, 4, 6 - extra-ocular movements intact and no nystagmus CN 5 - facial sensation intact V1-3 CN 7 - no facial asymmetry CN 8 - intact hearing CN 9, 10 - palate symmetric, uvula midline, no deviation CN 11 - shoulder shrug full strength CN 12 - tongue protrudes midline Sensory: intact to light touch Coordination: intact with finger to nose testing and heel to bermudez normal Movement Examination: no no tremor noted in the head Muscle Tone: normal Muscle exam: strength 5/5 upper and lower extremities and no drift STUDIES: Labs: A1c 7.6% AST 49 Alk phos 206 ALT 58 Creatinine 0.6 Diagnostic Tests: PET CT Skull base 12/29/24: IMPRESSION Widely disseminated disease, including brain, lung, liver, bone, hiro, and subcutaneous metastases. Imaging: [place] Brain DATSCAN 10/29/23: IMPRESSION Asymmetric dopamine transporter distribution, truncated on the right. Findings suggest Parkinsoniansyndrome, such as Parkinson's disease, multiple systems atrophy, or progressive supranuclear palsy. CT Head ([facility]): large left parietal lobe mass with vasogenic edema IMPRESSION: 69 year old woman with history of Parkinson's disease (on no medications) and metastatic breast cancer with suspected metastatic lesion in the left parietal lobe. Multiple seizures of unclear semiology. Right lateral tongue bite on examination. Appears to be at her baseline now. RECOMMENDATIONS / PLAN: -Keppra 500mg BID. 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 Prosper Jeronimo acting as telepresenter. documented in this encounter Nursing Notes * Megan Bui RN - 12/30/2024 3:37 AM EDT Dual Licensed Skin Assessment completed by Megan Bui RN and Nhung Cid RN. The patient is/has a N/A Skin Breakdown (includes non blanchable erythema): Yes - Surgical/Procedural changes only. Patient has Double mastectomy healed, Dexcom RUQ, Tongue has reddened areas bilaterally on side appears patient bite tongue. documented in this encounter Miscellaneous Notes * Pt Handout (on AVS) - Jason Sheppard DO - 12/31/2024 1:13 PM EDT 97830 Metastatic Breast Cancer: What You Need to Know Being diagnosed with breast cancer can be scary. Learning that it has spread (metastasized) to other parts of the body can be even more upsetting. Researchers keep working on new treatments for metastatic breast cancer. Even though these can?t cure metastatic breast cancer, they can help manage it, sometimes for years. If you have been diagnosed with metastatic breast cancer, your healthcare team is there to support you. When breast cancer spreads In its early stages, breast cancer is only in the breast. Metastatic breast cancer is different. Itis called stage IV cancer. Cancer cells from the breast have spread and grown tumors in other partsof your body. This most often includes your bones, lungs, liver, or brain. These growths are still breast cancer. The new tumors are made up of breast cancer cells. Metastatic breast cancer can happen if you have an early-stage breast cancer that grows. Or stage IV breast cancer may be your first diagnosis. Healthcare providers can diagnose metastatic breast cancer with these: · Imaging tests like a CT scan, MRI, or PET scan · Tissue samples (biopsies) checked in a lab · Blood tests Know the symptoms Your symptoms depend on where the cancer has spread. Some common signs may include: · Bone pain or fractures · Shortness of breath · Lasting cough · Abdominal pain or swelling · Jaundice (yellowing of the skin or whites of the eyes) · Severe headaches or seizures · Vision problems · Confusion · Nausea or vomiting · Unexplained weight loss or loss of appetite It?s important to pay attention to your body. Tell your healthcare team about any new or worse symptoms. Finding cancer early can help your team manage it better. Ask your healthcare team what symptoms to watch for and when to report them. Understanding treatment options There is no cure for metastatic breast cancer. But treatment can help control it, manage symptoms, and improve your quality of life. Your treatment plan depends on the cancer?s subtype, location, and your overall health. Some commontreatment options include: · Hormone therapy. This treatment is used for hormone receptor-positive breast cancers. It helps block the ability of cancer cells to use hormones to grow. · Chemotherapy (chemo). This is medicine given by mouth or by IV (intravenous) line into a vein. It uses powerful medicines to kill or slow the growth of cancer cells. Chemo can be used alone or with other treatments. · Targeted therapy. These are medicines that target cancer cells with certain genetic mutations orproteins. This helps to block their growth and spread with less harm to healthy cells. · Immunotherapy. This treatment uses the body?s immune system to find and attack cancer cells. · Radiation therapy. This can relieve pain and control the spread of cancer in some parts of the body. It uses high-energy X-rays or other particles to kill cancer cells and shrink tumors. · Surgery. In some cases, surgery may be advised to remove tumors or ease symptoms caused by cancer growth. Be honest when you talk with your healthcare team. Make sure you fully understand your treatment options. This will help you make informed decisions about your care. Research and clinical trials Researchers are working to improve treatments. You can ask your cancer care provider about clinicaltrials. A clinical trial is a research study to test new treatments. You may have access to a new treatment when you join a study. Ask about the benefits and risks of a clinical trial for you. Getting support Living with metastatic breast cancer can be challenging. But you don?t have to face this on your own. There is a community of people ready to support you. You may deal with feelings like anxiety, sadness, anger, or hopelessness. But remember that many people who have stitcher operator active lives. Support groups and counseling can help you with your emotions. They can help you connect with others who have similar experiences. Ask your healthcare team for advice. They may recommend support groups online, in your area, or in your treatment center. There may be groups just for people with metastatic breast cancer. Ask your healthcare team who else you can talk to in your cancer care facility. There may be peopleto help you with stress, nutrition, financial questions, and other needs. This may include any of these: · Counselor · cinder worker · Navigator · facilities manager · Dietitian · boarding specialist · Machine Cutter Last Reviewed Date: 2023 00:00:00 © [employer]. All rights reserved. This information is not intended as a substitute for professional medical care. Always follow your healthcare professional's instructions. * Pt Handout (on AVS) - Jason Sheppard DO - 12/31/2024 1:12 PM EDT 76129 Breast Cancer: Support for Metastatic Cancer After a diagnosis of metastatic breast cancer, you may feel scared and overwhelmed. Know that you?re not alone. A community of people is available to share advice, knowledge, and resources. Finding support You can get help in many ways. Healthcare providers · Talk with your providers, including your oncologist. They know your situation better than anyone. They can advise support, counseling, and resources specific to you. · Your hospital may have a social worker aide, navigator, or case management director you can meet with. They can answer questions about your treatment. They can also connect you to hospital resources for treatment and counseling. Plus, they can discuss or point you to financial resources. Support groups · A support group connects you to people in a similar situation. It gives you a safe space to share your thoughts and concerns. You can also get information and tips from others. You can find both in-person or online groups through your local hospital, cancer center, and other cancer organizations. Online communities · There are online forums where people can share their experiences with metastatic breast cancer. Joining message boards and social media groups can make you feel less alone. This option works well for people who don?t feel comfortable speaking in public or can?t get to in-person support groups. Nonprofit organizations · Many nonprofit cancer organizations help people with cancer. Some may also provide financial assistance under certain conditions. Your healthcare team can suggest options. Or you can search onlinefor the right fit. Therapy and counseling · It can also be helpful to get professional help. There are mental health professionals who specialize in cancer-related counseling. But you can also talk with a personal therapist or counselor. Hospitals and cancer centers may provide these services. You can also see someone privately. Counseling options include in-person, phone, or online sessions. The most important thing is to find a way totalk that?s comfortable for you. Palliative care · Palliative care focuses on making the person more comfortable physically, emotionally, and spiritually at any point during a serious illness like advanced cancer. It may help ease pain and other distressing symptoms. It can improve quality of life. It?s also been shown to decrease anxiety and depression. Palliative care and resources may be available r in the hospital, clinic, or at home. It can also be offered at nursing homes and assisted living facilities. Hospice care · Hospice care may help when treatment for cancer is no longer the focus of care. It can offer comfort, resources, and support for end-of-life situations. Hospice care can occur at home, in hospitals, at a hospice residential facility, or assisted living and long term facilities depending on your needs. Communicating your needs It may feel hard or awkward telling your friends and family how to help. That?s normal. But it?s important to clearly express yourself openly and honestly. Sharing your diagnosis and treatment plan will allow your loved ones to understand your situation. They may want to help but don?t know how. Identify specific areas where they can step in to make your life easier, like cooking meals, running errands, driving you to an appointment, or taking care of your children. You may set boundaries with each person. That way they?ll have a clear idea of what you want (and what you don?t). It?s OK to ask for space or be alone when you need it. It may be helpful to share your fears and emotions with those closest to you when you?re ready. Youmay be feeling anxious, sad, angry, or hopeless, for example. Talking about how you feel could helpyou deal with your feelings. If all the offers of help and support are overwhelming, it may be a good idea to pick someone as your point person. They can communicate and coordinate your needs with others for you. Your needs will likely change as you continue through your treatment and when treatment ends. Let your loved ones know when that happens. Remember, you?re not alone during this time. You can be connected to the support you need. Last Reviewed Date: 2023 00:00:00 © [employer]. All rights reserved. This information is not intended as a substitute for professional medical care. Always follow your healthcare professional's instructions. * Pt Handout (on AVS) - Jason Sheppard DO - 12/31/2024 1:12 PM EDT Images from the original note were not included. Metastatic Breast Cancer - Video This is breast cancer that has spread to other parts of your body. We also call it "stage IV" breast cancer. This is the most advanced stage. It can affect you in different ways, depending on where the cancer cells have moved to. To view the video go to this web address: [email or web address] Or, scan this QR code with your smart phone 2019 [employer]. * Ancillary Progress Note - Akanksha Sarabia RDN - 12/31/2024 11:15 AM EDT CLINICAL NUTRITION ADULT RISK ASSESSMENT [address] [address] Name: Aixa Cruz Location: [facility] A434/A Date: 12/31/2024 Time: 1:22 PM How patient was identified (select 2): date and Name Aixa Cruz is a 69 year old female being assessed for clinical nutrition risk related to extended LOS Primary diagnosis: 69 year old female was admitted on 12/30/2024 and presents with New onset seizures in the setting of metastatic disease. Other pertinent information: The patient reports that she has a smaller appetite at baseline. Her food preferences were discussed and will be sent to the food production worker team. The patient denies consuming oral supplements at home, but she is amendable to trying some while she is admitted. The patient denies having any issues related to nausea, vomiting, constipation, or diarrhea. Anthropometrics Measurements Admission weight (for dietitians): 66.6 kg Height: 152.4 cm (5') (12/30/24 0310) Weight: 66.3 kg (146 lb 2.6 oz) (12/31/24 0600) BMI: 28.68 (12/30/24 0310) Usual Body Weight or EDW for Dialysis Patients: 66-68 kg Diet: Regular Previously followed diet: Regular Food Allergies/Intolerances: None. Oral Nutrition Supplement (ONS): N/A Pertinent medications/vitamins/minerals/supplements: Decadron, Novolog, Levoxyl, Senokot, Phos-Nak. RISK FACTORS: Adult Energy Intake: Less than 75% of estimated energy requirement for greater than 7 days (moderate, acute illness). Interpretation of Weight Change: No recent/significant weight change Skin: Intact NUTRITION RISK CATEGORY: Nutrition Risk Category: Low/Moderate (0-1 factors) Clinical Nutrition Recommendations: Diet: Continue current nutrition plan NUTRITION INTERVENTION/PLAN: Orders: Oral nutrition supplement added Milkshake, Vanilla (270 mL provides 319 calories, 7 grams protein, 35 grams carbohydrate) -daily Super Pudding Chocolate (188 kcals, 13g protein, 25.6 grams carbohydrate per 5.3oz)-daily Food preferences were sent to the food production worker team. Will follow and adjust nutritional plan as medical condition requires. Please contact for change(s)in patient condition requiring earlier intervention. Akanksha Sarabia RDN, LDN Registered Dietitian Hostess Host [facility] [phone] Available via [employer] * Communication - Ezequiel Ly MD - 12/31/2024 9:37 AM EDT Neurology Impression: brain tumor-related epilepsy Recommendations: disconnect from LTM EEG, continue Keppra at current dose. Do not start medicationsfor her Parkinson's at this encounter. Maintain March 24, 2025 neurology OP appointment. Patient should not drive; epilepsy reported to [facility]. Defer management of malignancy to medicine/oncology. Please call if further questions. * Care Plan - Megan Bui RN - 12/31/2024 6:28 AM EDT Clinical Goal(s): pt will remain free of seizures (12/30/241999) Possible barriers to meeting goal(s)/advancing plan of care: brain tumor Stability of the patient: Unstable - high likelihood or risk of patient condition declining or worsening Summary regarding today's goal(s): Met: NO ACTIVITY recorded Recommendations: continue Oral med reg. * Communication - Shabbir Hoff MD - 12/30/2024 7:54 AM EDT LTM EEG Preliminary Result Study reviewed 06:28-07:50. Findings: 1. Left temporoparietal slowing suggesting focal cerebral dysfunction in that region. 2. Diffuse slowing suggesting a mild degree of diffuse or multifocal cerebral dysfunction of non-specific etiology. No epileptiform discharges or electrographic seizures were captured. Final LTM EEG report to follow completion of the day's study. * Care Plan - Megan Bui RN - 12/30/2024 6:15 AM EDT Clinical Goal(s): patient remains seizure free for duration of shift. (12/30/24 0245) Possible barriers to meeting goal(s)/advancing plan of care: patient has brain tumor new Stability of the patient: Unstable - high likelihood or risk of patient condition declining or worsening Summary regarding today's goal(s): Met: patient had no sign of seizure activity Recommendations: continue to monitor * Respiratory Progress Note - Denilson Mccord RRT - 12/30/2024 4:23 AM EDT PATIENT DRIVEN PROTOCOL - Respiratory Care Services [address] [address] Name: Aixa Cruz Location: [facility] [place] A434/A Date: 12/30/2024 Time: 4:24 AM Patient Driven Protocol Summary: Initial evaluation performed. This Treatment Plan and medications will be reviewed by the Primary Care Team for any contraindications. Respiratory Care Treatment Plan Pulmonary Volume Expansion Therapy: Incentive Spirometry PRN to prevent or treat alveolar consolidation and atelectasis. . Secretion Management Treatment: Flutter TherapyPRN to enhance mobilization of secretions. . The patient will be re-evaluated: No re-evaluation needed. Indications for treatment met. The Triage Level is: (Assessment Score = 0 - 5) Level 5. Triage Level Definitions: Level 1 Severe Respiratory/Airway Compromise Level 2 Moderate Respiratory/Airway Compromise or high risk for pulmonary complications Level 3 Mild Respiratory/Airway Compromise or moderate risk for pulmonary complications Level 4 Episodic Respiratory/Airway Compromise or low risk for pulmonary complications Level 5 No Respiratory/Airway Compromise Triage 1 Triage 2 Triage 3 Triage 4 Triage 5 greater than 20 16 - 20 11 - 15 6 - 10 0 - 5 Medical Record Assessment Clinical Findings Pulmonary Status: 0 - No History Surgical Status: 0 - No Surgical History Chest X-Ray: 0 - Not Performed or performed greater than 3 days ago Assessment Score: 0 Patient Assessment Clinical Findings Respiratory Pattern: 1 - RR 21 - 25; Patient gets short of breath when hurrying on level ground or walking up a slight hill. Breath Sounds: 0 - Clear to auscultation Cough Effectiveness: 0 - Strong non-productive Sputum Production: 0 - No sputum production Level of Activity: 1 - Ambulatory with assist O2 needed to keep SpO2 greater than or equal to 92%: 1 - Oxygen 1-3 LPM or FiO2 less than 35% Assessment Score: 3 Total Assessment Score: 3 Breath Sounds: Inspiratory and expiratory clear and diminished bilaterally.. Cough and Sputum: A loose cough produced no sputum... CXR: NONE. Vital Signs: Resp: 24 (12/30/24244) Pulse: 93 (12/30/24244) Temp: 36.2 °C (97.2 °F) (12/30/24244) BP: 130/82 (12/30/24244) SpO2: 98 % (12/30/24244) PFT: Minimal Predicted IC: 0.675 L. Inspiratory capacity: 1.5L. Primary Service: Critical Care Medicine. Admitting Diagnosis: Status epilepticus (HCC) [G40.901] Pulmonary Diagnosis: Hypertension. documented in this encounter Plan of Treatment Upcoming Encounters Date Type Department Care Team (Latest Contact Info) Description 01/12/2025 2:00 PM EDT Office Visit Hematology/Oncolog y State Fariha Callahan [address] [place] [phone] Eleuterio Zapata MD [address] [place] [id number] 01/27/2025 8:00 AM EDT Office Visit Family Practice [facility] [address] [place] [address] Lesly Castellon, DO [address] [place] [address] 01/28/2025 1:46 PM EDT Hospital Encounter [facility] Operating Room [facility] [address] [place] [phone] Thom Palomino, DO [address] [place] [phone] 01/28/2025 1:46 PM EDT - 01/28/2025 2:12 PM EDT Surgery [facility], Operating Room [facility] [address] [place] [phone] Thom Palomino, DO [address] [place] [phone] INJECTION TRANSFORAMINAL EPIDURAL LUMBAR OR SACRAL 03/23/2025 8:00 AM EDT Office Visit Pharmacy, [facility] [address] [place] [id number] [facility] [address] [place] [address] 03/24/2025 8:40 AM EDT Office Visit Neurology [facility] [address] [place] [address] Tanya Mcpherson MD [address] [place] [id number] Scheduled Procedures Name Priority Associated Diagnoses Date/Ti me INJECTION TRANSFORAMINAL EPIDURAL LUMBAR OR SACRAL Lumbar radiculopathy 01/28/2025 1:46 PM EDT COLONOSCOPY FLEXIBLE PROXIMAL DIAGNOSTIC Recall History of colon polyps Scheduled Referrals Name Type Priority Associated Diagnoses Order Schedule PHYSICAL THERAPY REFERRAL OP Referral Within 3 days (urgent) Brain mass Triple negative breast cancer (HCC) Ordered: 12/31/2024 OCCUPATIONAL THERAPY REFERRAL OP Referral Within 3 days (urgent) Brain mass Triple negative breast cancer (HCC) Ordered: 12/31/2024 Health Maintenance Due Date Last Done Comments Depression Monitoring 10/29/2023 10/29/2022 COVID-19 Vaccine ( season) 2024 08/15/2021, 01/23/2021, 12/29/2020 TSH 01/21/2025 01/22/2024, 12/12, 06/26/2022, Additional history exists DXA Scan 12/18/2025 12/18/2022, 10/02/2018 *NEPHROLOGY REFERRAL DUE TO RESISTANT HTN Addressed 04/27/2018 (Not indicated) Overridden with the intention of not completing the topic Pap Smear Discontinued 09/19/2020, 10/2016, 09/25/2012, Additional [...] this encounter Medical Devices Implanted Type Area Filling And Packing Supervisor Device Identifier Shelf Expiration Date Model / Serial / Lot Lens 24.0 Mx60e - [id number] - [id number] Implanted:Qty : 1 on 04/30/2018 by Martin Donnelly MD at OR [facility] Left: Eye [employer]OMB 01/10/2021 [id number]-51.0 / [id number] / [id number] Mx60 +23.0d Implanted:Qty : 1 on 05/12/2018 by Martin Donnelly MD at OR [facility] Right: Eye 07/12/2020 CF7860.0 / [id number] / [id number] Duraclip 16mm Xlg Repostn - [id number] Implanted:Qty : 2 on 08/23/2022 by Sudhakar Martell MD at [facility] [employer]MED JESSICA 11/28/2023 [id number] / / Port Implant W/8f Poly Cath - [id number] Implanted:Qty : 1 on 09/18/2023 by Marty Quispe Jr., MD at OR [facility] BARD : PERIPHERAL VASCULAR [id number] 03/12/2025 [id number] / / [id number] documented as of this encounter Procedures Procedure Name Priority Date/Time Associated Diagnosis Comments GLUCOSE METER, POINT OF CARE KEVIN 12/31/2024 11:54 AM EDT GLUCOSE METER, POINT OF CARE KEVIN 12/31/2024 6:07 AM EDT BASIC METABOLIC PANEL Routine 12/31/2024 5:50 AM EDT PHOSPHORUS STAT 12/31/2024 5:50 AM EDT CBC Routine 12/31/2024 5:50 AM EDT MAGNESIUM STAT 12/31/2024 5:50 AM EDT GLUCOSE METER, POINT OF CARE KEVIN 12/31/2024 12:24 AM EDT EEG NEWSPAPER EDITOR MANAGING MONITORING Routine 12/31/2024 GLUCOSE METER, POINT OF CARE KEVIN 12/30/2024 6:12 PM EDT MRI NEURO 3-D RECONSTRUCTION Routine 12/30/2024 6:07 PM EDT MR GUIDED BRAIN LOCALIZATION BRAINLAB Routine 12/30/2024 6:06 PM EDT MRI BRAIN W WO CONTRAST Routine 12/31/19 6:05 PM EDT GLUCOSE METER, POINT OF CARE KEVIN 12/30/2024 11:[address] CHEST/ABDOMEN/PELVIS WITH IV CONTRAST WITH ORAL CONTRAST Routine 12/30/2024 8:38 AM EDT GLUCOSE METER, POINT OF CARE KEVIN 12/30/2024 5:39 AM EDT BASIC METABOLIC PANEL Routine 12/30/2024 5:22 AM EDT PHOSPHORUS STAT 12/30/2024 5:22 AM EDT CBC Routine 12/30/2024 5:22 AM EDT MAGNESIUM STAT 12/30/2024 5:22 AM EDT HEMOGLOBIN A1C Routine 12/30/2024 3:11 AM EDT HEPATIC FUNCTION PANEL STAT 3:10 AM EDT BASIC METABOLIC PANEL STAT 12/30/2024 3:10 AM EDT PT INR STAT 12/30/2024 3:10 AM EDT PHOSPHORUS STAT 12/30/2024 3:10 AM EDT APTT STAT 12/30/2024 3:10 AM EDT CBC STAT 12/30/2024 3:10 AM EDT MAGNESIUM STAT 12/30/2024 3:10 AM EDT LACTATE STAT 12/30/2024 3:09 AM EDT documented in this encounter Results * (ABNORMAL) GLUCOSE METER, POINT OF CARE (12/31/2024 11:54 AM EDT) Glucose - POCT 269(H) 70 - 120 mg/dL 12/31/2024 12:10 PM EDT So Protect Me Blood Whole blood specimen / Unknown 12/31/2024 11:54 AM EDT 12/31/2024 12:10 PM EDT Bridgett Summers MD LAB POINT OF CARE TEST DOCKED DEVICE UNSOLICITED RESULTS Final Result Performing Organization Address City/[facility]/ZIP Co de Phone Number [facility] [address] [place] [address] * (ABNORMAL) GLUCOSE METER, POINT OF CARE (12/31/2024 6:07 AM EDT) Glucose - POCT 180(H) 70 - 120 mg/dL 12/31/2024 6:12 AM EDT So Protect Me Blood Whole blood specimen / Unknown 12/31/2024 6:07 AM EDT 12/31/2024 6:12 AM EDT Bridgett Summers MD LAB POINT OF CARE TEST DOCKED DEVICE UNSOLICITED RESULTS Final Result [facility] [address] [place] [address] * (ABNORMAL) PHOSPHORUS (12/31/2024 5:50 AM EDT) Phosphorus 2.3(L) 2.5 - 4.8 mg/dL 12/31/2024 6:36 AM EDT LABORATORY [facility] Blood Venous blood specimen / Unknown Capillary / Unknown 12/31/2024 5:50 AM EDT 12/31/2024 6:09 AM EDT Maria Del Carmen Leeseric IBRAHIM LAB BLOOD ORDERABL ES Final Result Performing Organization Address City/[facility]/ZIP Co de Phone Number LABORATORY [facility] [address] [place] [address] * MAGNESIUM (12/31/2024 5:50 AM EDT) Magnesium 2.1 1.5 - 2.6 mg/dL 12/31/2024 6:36 AM EDT LABORATORY C Blood Venous blood specimen / Unknown Capillary / Unknown 12/31/2024 5:50 AM EDT 12/31/2024 6:09 AM EDT Maria Del Carmen Leeshervernell Cranetimur IBRAHIM LAB BLOOD ORDERABL ES Final Result Performing Organization Address [facility] de Phone Number LABORATORY [facility] [address] [place] [address] * (ABNORMAL) BASIC METABOLIC PANEL (12/31/2024 5:50 AM EDT) BUN 16 6 - 20 mg/dL 12/31/2024 6:36 AM EDT LABORATORY [facility] CREATININE 0.5 0.5 - 1.0 mg/dL 12/31/2024 6:36 AM EDT LABORATORY [facility] EGFR >90 >=60 mL/min 12/31/2024 6:36 AM EDT LABORATORY C Comment:eGFR is calculated b ased on the CKD-EPI 2020 equation. SODIUM 137 135 - 146 mmol/L 12/31/2024 6:36 AM EDT LABORATORY [facility] POTASSIUM 4.9 3.5 - 5.1 mmol/L 12/31/2024 6:36 AM EDT LABORATORY [facility] CHLORIDE 101 98 - 107 mmol/L 12/31/2024 6:36 AM EDT LABORATORY [facility] CO2 20(L) 22 - 32 mmol/L 12/31/2024 6:36 AM EDT LABORATORY [facility] ANION GAP 16(H) 7 - 15 mmol/L 12/31/2024 6:36 AM EDT LABORATORY [facility] GLUCOSE 202(H) 70 - 120 mg/dL 12/31/2024 6:36 AM EDT LABORATORY [facility] CALCIUM 9.4 8.4 - 10.2 mg/dL 12/31/2024 6:36 AM EDT LABORATORY [facility] Blood Venous blood specimen / Unknown Capillary / Unknown 12/31/2024 5:50 AM EDT 12/31/2024 6:09 AM EDT Maria Del Carmen IBRAHIM LAB BLOOD ORDERABL ES Final Result LABORATORY [facility] [address] [place] [address] * (ABNORMAL) CBC (12/31/2024 5:50 AM EDT) WBC 14.58(H) 4.00 - 10.80 K/uL 12/31/2024 6:03 AM EDT LABORATORY [facility] RBC 4.27 3.85 - 5.15 M/uL 12/31/2024 6:03 AM EDT LABORATORY [facility] HGB 11.7(L) 12.0 - 15.3 g/dL 12/31/2024 6:03 AM EDT LABORATORY [facility] HCT 35.6(L) 36.0 - 45.2 % 12/31/2024 6:03 AM EDT LABORATORY [facility] MCV 83.4 81.5 - 97.5 fL 12/31/2024 6:03 AM EDT LABORATORY [facility] MCH 27.4 27.0 - 34.0 pg 12/31/2024 6:03 AM EDT LABORATORY [facility] MCHC 32.9 32.0 - 36.0 g/dL 12/31/2024 6:03 AM EDT LABORATORY [facility] RDW 14.1 11.5 - 15.5 % 12/31/2024 6:03 AM EDT LABORATORY [facility] PLT 343 140 - 400 K/uL 12/31/2024 6:03 AM EDT LABORATORY [facility] MPV 9.7 6.6 - 11.1 fL 12/31/2024 6:03 AM EDT LABORATORY [facility] nRBCs 0 <=0 /100 WBCs 12/31/2024 6:03 AM EDT LABORATORY [facility] Blood Venous blood specimen / Unknown Capillary / Unknown 12/31/2024 5:50 AM EDT 12/31/2024 5:54 AM EDT us Maria Del Carmen IBRAHIM LAB BLOOD ORDERABL ES Final Result LABORATORY [facility] [address] [place] [address] * (ABNORMAL) GLUCOSE METER, POINT OF CARE (12/31/2024 12:24 AM EDT) [facility] Glucose - POCT 273(H) 70 - 120 mg/dL 12/31/2024 12:38 AM EDT [facility] Blood Whole blood specimen / Unknown 12/31/2024 12:24 AM EDT 12/31/2024 12:38 AM EDT us Bridgett Summers MD LAB POINT OF CARE TEST DOCKED DEVICE UNSOLICITED RESULTS Final Result Performing Organization Address City/[facility] Co de Phone Number [facility] [address] [place] [address] * EEG NEWSPAPER EDITOR MANAGING MONITORING (12/31/2024) Narrative Amber Altamirano TECH - 12/31/2024 [facility] MONIT[facility]-NEUROPHYSIOLOGY COMMENTS: NAME: Aixa Cruz MACHINE: [facility] 8947 MEDS: spenser Mccarthy HISTORY: 69 y/o female with a PMH significant for depression, anxiety, DLD, hypothyroidism, DM, essential tremor, HTN, lumbar degenerative disc disease, obesity, breast cancer with mets to the lung, brain and bone. Aixa presented to [facility] ED with for evaluation of seizure like activity. While in the ED the patient was reported to have another seizure. She has no prior history of seizures and is not on any AEDs. DATE/TIME STARTED:12/30 @ 627 DATE/TIME ENDED: 12/31@1034 DAY: 1 DATE: 12/30 -12/31 TIME: 7322-1203/ PB/EVENTS: COMMENTS: Bicentroparietal predom spike/slow discharges, L tp slow/bas This was an abnormal continuous video EEG recording due to: 1. Left temporoparietal slowing suggesting focal cerebral dysfunction in that region. 2. Diffuse slowing suggesting a mild degree of diffuse or multifocal cerebral dysfunction of non-specific etiology. REPORTING PHYS:MM BILLING: hu and 24hrs on 12/30 and 2-12hrs on 12/31 us Maria Del Carmen ISRAELNP MEDICINE Fi nal Result * (ABNORMAL) GLUCOSE METER, POINT OF CARE (12/30/2024 6:12 PM EDT) Pathologist [facility] Glucose - POCT 254(H) 70 - 120 mg/dL 12/30/2024 6:14 PM EDT Perfect CommerceEAST MOR[facility] COUNTY HOSPITALPossible Web Blood Whole blood specimen / Unknown 12/30/2024 6:12 PM EDT 12/30/2024 6:14 PM EDT us Bridgett Summers MD LAB POINT OF CARE TEST DOCKED DEVICE UNSOLICITED RESULTS Final Result [facility] [address] [place] [address] * MRI NEURO 3-D RECONSTRUCTION (12/30/2024 6:07 PM EDT) Anatomical Region Laterality Modality 3drecon Magnetic Resonan ce 12/30/2024 6:42 PM EDT Impressions 12/30/2024 6:40 PM EDT IMPRESSION 1. Multiple brain metastases in the bilateral cerebral and cerebellar hemispheres, several of them containing small amount of chronic blood products and/or mineralization. 2. The largest metastasis at the left parietooccipital junction measures up to 2.5 cm and in conjunction with moderate surrounding vasogenic edema is producing a local mass effect. All other metastases are subcentimeter in size without significant edema or mass effect. 3. Chronic unrelated findings as detailed above. Narrative 12/30/2024 6:40 PM EDT EXAM MRI scan of the brain without and with intravenous contrast, including the brain lab protocol, and DTI (diffusion tensor imaging) of the brain weighs white matter tractography - 12/30/2024. HISTORY 68 years old female with breast carcinoma and brain metastases scheduled for surgery. TECHNIQUE Multiplanar multisequential magnetic resonance imaging of the brain was performed before and after uneventful intravenous administration of gadolinium containing contrast as per brain tumor protocol and brain lab protocol. DTI imaging of the brain was performed in 3 orthogonal planes. Color coded white matter tractography maps were generated on the dedicated workstation. COMPARISON PET-CT scan from yesterday. FINDINGS There are multiple solid heterogeneously enhancing metastases in the bilateral cerebral and cerebellar hemispheres. The largest metastasis at the left parietooccipital junction measures up to 2.1 x 1.7 by 2.5 cm in the anteroposterior, transverse, and craniocaudal dimension. This tumor and surrounding moderate vasogenic edema are causing a local mass effect with partial effacement of surrounding cortical sulci and slight impingement of the posterior aspect of the left lateral ventricle. All other metastatic lesions are subcentimeter in size without significant associated edema or mass effect. Small foci of susceptibility artifact in the largest left parietooccipital and several other metastases probably represent small amount of chronic blood products and/or mineralization. There is no evidence of hemorrhage, midline shift, hydrocephalus, or extraaxial fluid collection. Mild generalized age-related cerebral parenchymal atrophy is appreciated with compensatory dilatation of the ventricles, sulci, and basal cisterns. A few tiny nonspecific foci of T2 FLAIR hyperintensity in the bilateral cerebral white matter probably represent mild chronic small vessel ischemic changes. The midline structures, including the pituitary gland, corpus callosum, brainstem, pineal region, and craniocervical junction are unremarkable. No restricted diffusion is identified to suspect acute ischemia. Expected flow voids are maintained in the main intracranial vessels. No calvarial abnormalities are detected. The [place] ocular lenses were surgically replaced; otherwise, the intraorbital contents are within normal limits. The paranasal sinuses and mastoid air cells are clear and well aerated. The brain metastases do not affect the main white matter tracks, which appear unremarkable. Procedure Note Jacob Gomez MD - 12/30/2024 EXAM MRI scan of the brain without and with intravenous contrast, including thebrain lab protocol, and DTI (diffusion tensor imaging) of the brain weighswhite matter tractography - 12/30/2024. HISTORY 68 years old female with breast carcinoma and brain metastases scheduledfor surgery. TECHNIQUE Multiplanar multisequential magnetic resonance imaging of the brain wasperformed before and after uneventful intravenous administration ofgadolinium containing contrast as per brain tumor protocol and brain labprotocol. DTI imaging of the brain was performed in 3 orthogonal planes. Colorcoded white matter tractography maps were generated on the dedicatedworkstation. COMPARISON PET-CT scan from yesterday. FINDINGS There are multiple solid heterogeneously enhancing metastases in thebilateral cerebral and cerebellar hemispheres. The largest metastasis atthe left parietooccipital junction measures up to 2.1 x 1.7 by 2.5 cm inthe anteroposterior, transverse, and craniocaudal dimension. This tumorand surrounding moderate vasogenic edema are causing a local mass effectwith partial effacement of surrounding cortical sulci and slightimpingement of the posterior aspect of the left lateral ventricle. Allother metastatic lesions are subcentimeter in size without significantassociated edema or mass effect. Small foci of susceptibility artifact inthe largest left parietooccipital and several other metastases probablyrepresent small amount of chronic blood products and/or mineralization.There is no evidence of hemorrhage, midline shift, hydrocephalus, orextraaxial fluid collection. Mild generalized age-related cerebralparenchymal atrophy is appreciated with compensatory dilatation of the ventricles, sulci, and basal cisterns. A few tiny nonspecific foci of [id number] hyperintensity in the bilateral cerebral white matter probablyrepresent mild chronic small vessel ischemic changes. The midlinestructures, including the pituitary gland, corpus callosum, brainstem,pineal region, and craniocervical junction are unremarkable. Norestricted diffusion is identified to suspect acute ischemia. Expectedflow voids are maintained in the main intracranial vessels. No calvarialabnormalities are detected. The [place] ocular lenses were surgicallyreplaced; otherwise, the intraorbital contents are within normal limits.The paranasal sinuses and mastoid air cells are clear and well aerated. The brain metastases do not affect the main white matter tracks, whichappear unremarkable. IMPRESSION IMPRESSION 1. Multiple brain metastases in the bilateral cerebral and cerebellarhemispheres, several of them containing small amount of chronic bloodproducts and/or mineralization. 2. The largest metastasis at the left parietooccipital junction measuresup to 2.5 cm and in conjunction with moderate surrounding vasogenic edemais producing a local mass effect. All other metastases are subcentimeter in size without significant edemaor mass effect. 3. Chronic unrelated findings as detailed above. us Denver Wade MD RAD MRI-MRA Final R esult * MR GUIDED BRAIN LOCALIZATION BRAINLAB (12/30/2024 6:06 PM EDT) Anatomical Region Laterality Modality Head, Neuro Magnetic Resonan ce 12/30/2024 6:42 PM EDT Impressions 12/30/2024 6:40 PM EDT IMPRESSION 1. Multiple brain metastases in the bilateral cerebral and cerebellar hemispheres, several of them containing small amount of chronic blood products and/or mineralization. 2. The largest metastasis at the left parietooccipital junction measures up to 2.5 cm and in conjunction with moderate surrounding vasogenic edema is producing a local mass effect. All other metastases are subcentimeter in size without significant edema or mass effect. 3. Chronic unrelated findings as detailed above. Narrative 12/30/2024 6:40 PM EDT EXAM MRI scan of the brain without and with intravenous contrast, including the brain lab protocol, and DTI (diffusion tensor imaging) of the brain weighs white matter tractography - 12/30/2024. HISTORY 68 years old female with breast carcinoma and brain metastases scheduled for surgery. TECHNIQUE Multiplanar multisequential magnetic resonance imaging of the brain was performed before and after uneventful intravenous administration of gadolinium containing contrast as per brain tumor protocol and brain lab protocol. DTI imaging of the brain was performed in 3 orthogonal planes. Color coded white matter tractography maps were generated on the dedicated workstation. COMPARISON PET-CT scan from yesterday. FINDINGS There are multiple solid heterogeneously enhancing metastases in the bilateral cerebral and cerebellar hemispheres. The largest metastasis at the left parietooccipital junction measures up to 2.1 x 1.7 by 2.5 cm in the anteroposterior, transverse, and craniocaudal dimension. This tumor and surrounding moderate vasogenic edema are causing a local mass effect with partial effacement of surrounding cortical sulci and slight impingement of the posterior aspect of the left lateral ventricle. All other metastatic lesions are subcentimeter in size without significant associated edema or mass effect. Small foci of susceptibility artifact in the largest left parietooccipital and several other metastases probably represent small amount of chronic blood products and/or mineralization. There is no evidence of hemorrhage, midline shift, hydrocephalus, or extraaxial fluid collection. Mild generalized age-related cerebral parenchymal atrophy is appreciated with compensatory dilatation of the ventricles, sulci, and basal cisterns. A few tiny nonspecific foci of T2 FLAIR hyperintensity in the bilateral cerebral white matter probably represent mild chronic small vessel ischemic changes. The midline structures, including the pituitary gland, corpus callosum, brainstem, pineal region, and craniocervical junction are unremarkable. No restricted diffusion is identified to suspect acute ischemia. Expected flow voids are maintained in the main intracranial vessels. No calvarial abnormalities are detected. The [place] ocular lenses were surgically replaced; otherwise, the intraorbital contents are within normal limits. The paranasal sinuses and mastoid air cells are clear and well aerated. The brain metastases do not affect the main white matter tracks, which appear unremarkable. Procedure Note Jacob Gomez MD - 12/30/2024 EXAM MRI scan of the brain without and with intravenous contrast, including thebrain lab protocol, and DTI (diffusion tensor imaging) of the brain weighswhite matter tractography - 12/30/2024. HISTORY 68 years old female with breast carcinoma and brain metastases scheduledfor surgery. TECHNIQUE Multiplanar multisequential magnetic resonance imaging of the brain wasperformed before and after uneventful intravenous administration ofgadolinium containing contrast as per brain tumor protocol and brain labprotocol. DTI imaging of the brain was performed in 3 orthogonal planes. Colorcoded white matter tractography maps were generated on the dedicatedworkstation. COMPARISON PET-CT scan from yesterday. FINDINGS There are multiple solid heterogeneously enhancing metastases in thebilateral cerebral and cerebellar hemispheres. The largest metastasis atthe left parietooccipital junction measures up to 2.1 x 1.7 by 2.5 cm inthe anteroposterior, transverse, and craniocaudal dimension. This tumorand surrounding moderate vasogenic edema are causing a local mass effectwith partial effacement of surrounding cortical sulci and slightimpingement of the posterior aspect of the left lateral ventricle. Allother metastatic lesions are subcentimeter in size without significantassociated edema or mass effect. Small foci of susceptibility artifact inthe largest left parietooccipital and several other metastases probablyrepresent small amount of chronic blood products and/or mineralization.There is no evidence of hemorrhage, midline shift, hydrocephalus, orextraaxial fluid collection. Mild generalized age-related cerebralparenchymal atrophy is appreciated with compensatory dilatation of the ventricles, sulci, and basal cisterns. A few tiny nonspecific foci of [id number] hyperintensity in the bilateral cerebral white matter probablyrepresent mild chronic small vessel ischemic changes. The midlinestructures, including the pituitary gland, corpus callosum, brainstem,pineal region, and craniocervical junction are unremarkable. Norestricted diffusion is identified to suspect acute ischemia. Expectedflow voids are maintained in the main intracranial vessels. No calvarialabnormalities are detected. The [place] ocular lenses were surgicallyreplaced; otherwise, the intraorbital contents are within normal limits.The paranasal sinuses and mastoid air cells are clear and well aerated. The brain metastases do not affect the main white matter tracks, whichappear unremarkable. IMPRESSION IMPRESSION 1. Multiple brain metastases in the bilateral cerebral and cerebellarhemispheres, several of them containing small amount of chronic bloodproducts and/or mineralization. 2. The largest metastasis at the left parietooccipital junction measuresup to 2.5 cm and in conjunction with moderate surrounding vasogenic edemais producing a local mass effect. All other metastases are subcentimeter in size without significant edemaor mass effect. 3. Chronic unrelated findings as detailed above. us Denver Wade MD RAD MRI-MRA Final R esult * MRI BRAIN W WO CONTRAST (12/30/2024 6:05 PM EDT) Anatomical Region Laterality Modality Neuro, Head Magnetic Resonan ce 12/30/2024 6:42 PM EDT Impressions 12/30/2024 6:40 PM EDT IMPRESSION 1. Multiple brain metastases in the bilateral cerebral and cerebellar hemispheres, several of them containing small amount of chronic blood products and/or mineralization. 2. The largest metastasis at the left parietooccipital junction measures up to 2.5 cm and in conjunction with moderate surrounding vasogenic edema is producing a local mass effect. All other metastases are subcentimeter in size without significant edema or mass effect. 3. Chronic unrelated findings as detailed above. Narrative 12/30/2024 6:40 PM EDT EXAM MRI scan of the brain without and with intravenous contrast, including the brain lab protocol, and DTI (diffusion tensor imaging) of the brain weighs white matter tractography - 12/30/2024. HISTORY 68 years old female with breast carcinoma and brain metastases scheduled for surgery. TECHNIQUE Multiplanar multisequential magnetic resonance imaging of the brain was performed before and after uneventful intravenous administration of gadolinium containing contrast as per brain tumor protocol and brain lab protocol. DTI imaging of the brain was performed in 3 orthogonal planes. Color coded white matter tractography maps were generated on the dedicated workstation. COMPARISON PET-CT scan from yesterday. FINDINGS There are multiple solid heterogeneously enhancing metastases in the bilateral cerebral and cerebellar hemispheres. The largest metastasis at the left parietooccipital junction measures up to 2.1 x 1.7 by 2.5 cm in the anteroposterior, transverse, and craniocaudal dimension. This tumor and surrounding moderate vasogenic edema are causing a local mass effect with partial effacement of surrounding cortical sulci and slight impingement of the posterior aspect of the left lateral ventricle. All other metastatic lesions are subcentimeter in size without significant associated edema or mass effect. Small foci of susceptibility artifact in the largest left parietooccipital and several other metastases probably represent small amount of chronic blood products and/or mineralization. There is no evidence of hemorrhage, midline shift, hydrocephalus, or extraaxial fluid collection. Mild generalized age-related cerebral parenchymal atrophy is appreciated with compensatory dilatation of the ventricles, sulci, and basal cisterns. A few tiny nonspecific foci of T2 FLAIR hyperintensity in the bilateral cerebral white matter probably represent mild chronic small vessel ischemic changes. The midline structures, including the pituitary gland, corpus callosum, brainstem, pineal region, and craniocervical junction are unremarkable. No restricted diffusion is identified to suspect acute ischemia. Expected flow voids are maintained in the main intracranial vessels. No calvarial abnormalities are detected. The [place] ocular lenses were surgically replaced; otherwise, the intraorbital contents are within normal limits. The paranasal sinuses and mastoid air cells are clear and well aerated. The brain metastases do not affect the main white matter tracks, which appear unremarkable. Procedure Note Jacob Gomez MD - 12/30/2024 EXAM MRI scan of the brain without and with intravenous contrast, including thebrain lab protocol, and DTI (diffusion tensor imaging) of the brain weighswhite matter tractography - 12/30/2024. HISTORY 68 years old female with breast carcinoma and brain metastases scheduledfor surgery. TECHNIQUE Multiplanar multisequential magnetic resonance imaging of the brain wasperformed before and after uneventful intravenous administration ofgadolinium containing contrast as per brain tumor protocol and brain labprotocol. DTI imaging of the brain was performed in 3 orthogonal planes. Colorcoded white matter tractography maps were generated on the dedicatedworkstation. COMPARISON PET-CT scan from yesterday. FINDINGS There are multiple solid heterogeneously enhancing metastases in thebilateral cerebral and cerebellar hemispheres. The largest metastasis atthe left parietooccipital junction measures up to 2.1 x 1.7 by 2.5 cm inthe anteroposterior, transverse, and craniocaudal dimension. This tumorand surrounding moderate vasogenic edema are causing a local mass effectwith partial effacement of surrounding cortical sulci and slightimpingement of the posterior aspect of the left lateral ventricle. Allother metastatic lesions are subcentimeter in size without significantassociated edema or mass effect. Small foci of susceptibility artifact inthe largest left parietooccipital and several other metastases probablyrepresent small amount of chronic blood products and/or mineralization.There is no evidence of hemorrhage, midline shift, hydrocephalus, orextraaxial fluid collection. Mild generalized age-related cerebralparenchymal atrophy is appreciated with compensatory dilatation of the ventricles, sulci, and basal cisterns. A few tiny nonspecific foci of [id number] hyperintensity in the bilateral cerebral white matter probablyrepresent mild chronic small vessel ischemic changes. The midlinestructures, including the pituitary gland, corpus callosum, brainstem,pineal region, and craniocervical junction are unremarkable. Norestricted diffusion is identified to suspect acute ischemia. Expectedflow voids are maintained in the main intracranial vessels. No calvarialabnormalities are detected. The [place] ocular lenses were surgicallyreplaced; otherwise, the intraorbital contents are within normal limits.The paranasal sinuses and mastoid air cells are clear and well aerated. The brain metastases do not affect the main white matter tracks, whichappear unremarkable. IMPRESSION IMPRESSION 1. Multiple brain metastases in the bilateral cerebral and cerebellarhemispheres, several of them containing small amount of chronic bloodproducts and/or mineralization. 2. The largest metastasis at the left parietooccipital junction measuresup to 2.5 cm and in conjunction with moderate surrounding vasogenic edemais producing a local mass effect. All other metastases are subcentimeter in size without significant edemaor mass effect. 3. Chronic unrelated findings as detailed above. us Denver Wade MD RAD MRI-MRA Final R esult * (ABNORMAL) GLUCOSE METER, POINT OF CARE (12/30/2024 11:45 AM EDT) Glucose - POCT 218(H) 70 - 120 mg/dL 12/30/2024 11:58 AM EDT [facility] [employer] [facility] Blood Whole blood specimen / Unknown 12/30/2024 11:45 AM EDT 12/30/2024 11:58 AM EDT us Bridgett Summers MD LAB POINT OF CARE TEST DOCKED DEVICE UNSOLICITED RESULTS Final Result [facility] [address] [place] [address] * CT CHEST/ABDOMEN/PELVIS WITH IV CONTRAST WITH ORAL CONTRAST (12/30/2024 8:38 AM EDT) Anatomical Region Laterality Modality Body, Chest, Abdomen, Pelvis, Cardio Computed Tomography 12/30/2024 9:16 AM EDT Impressions 12/30/2024 9:14 AM EDT IMPRESSION Thoracic and abdominal metastases involving the lungs, liver, lymph nodes, peritoneum, subcutaneous tissues, and bones. Narrative 12/30/2024 9:14 AM EDT EXAM EXAM: CT CHEST/ABDOMEN/PELVIS WITH IV CONTRAST WITH ORAL CONTRAST DATE and TIME: 12/30/2024 8:38 am HISTORY CLINICAL INFORMATION: Metastatic disease evaluation TECHNIQUE Oral contrast was administered. Intravenous contrast was administered. COMPARISON PET CT SKULL BASE TO MID-THIGH FDG, ACC: [id number], dated 2024-12-29 09:19:17 FINDINGS LINES AND DEVICES: None LUNGS AND AIRWAYS: *Multiple pulmonary nodules, including a 10 mm left upper lobe nodule, 13 mm right upper lobe nodule, 17 mm left lower lobe nodule, and 2.0 cm subpleural right lower lobe nodule. *Right lower lobe segmental endobronchial mucous plugging with mild partial atelectasis of the right lower lobe. PLEURA: No pleural effusion. VESSELS: Calcified coronary artery and thoracic aortic atherosclerotic plaque. HEART: No pericardial effusion. Mitral annular calcifications. MEDIASTINUM AND ARIE: Bilateral hilar lymphadenopathy, for example a left hilar lymph node measuring 1.5 cm in short axis. CHEST WALL/SOFT TISSUES: Bilateral mastectomies. Subcutaneous 1.2 x 2.1 cm lesion at the right upper back (4:32). No axillary lymphadenopathy by size criteria. 0.7 cm right axillary lymph node. ABDOMEN/PELVIS: LIVER: Multiple bilobar lesions, the largest measuring 3.9 cm in the left lobe and 3.0 cm in the right lobe. BILE DUCTS: Unremarkable GALLBLADDER: Cholelithiasis. PANCREAS: Unremarkable SPLEEN: 1.5 cm lesion. ADRENALS: Mild bilateral adrenal gland thickening. KIDNEYS/URETERS: Small cortical cysts and a few too small to characterize hypodensities. BLADDER: Ramirez catheter. BOWEL: Colonic diverticulosis. Normal caliber noninflamed appendix. Small hiatal hernia. Oral contrast in the thoracic esophagus consistent with reflux. LYMPH NODES: 1.3 cm aortocaval lymph node (4:413), 1.3 cm left peritoneal lymph node (4:14), and 0.9 cm left peritoneal lymph node (4:424). VESSELS: Atherosclerotic plaque. REPRODUCTIVE ORGANS: 0.6 cm hypodense lesion at the periphery of the posterior uterine body/fundus (11:98), possibly an implant. PERITONEUM/RETROPERITONEUM: 1.2 x 0.8 cm peritoneal nodule (4:519). Smaller peritoneal nodules, including a 0.5 cm nodule in the anterior abdomen (4:451). ABDOMINAL WALL/SOFT TISSUES: Partially calcified 1.8 x 2.8 cm subcutaneous nodule at the right anterior abdominal wall (4:436), and a few subcutaneous nodules measuring 0.6 cm (4:306), 0.7 cm (4:578), and 0.6 cm (4:686). BONES: Small lytic lesion at the right pubic tubercle additional FDG avid osseous foci on the preceding PET are less conspicuous on this study. Procedure Note Edgar Hernandez MD - 12/30/2024 EXAM EXAM: CT CHEST/ABDOMEN/PELVIS WITH IV CONTRAST WITH ORAL CONTRAST DATE and TIME: 12/30/2024 8:38 am HISTORY CLINICAL INFORMATION: Metastatic disease evaluation TECHNIQUE Oral contrast was administered. Intravenous contrast was administered. COMPARISON PET CT SKULL BASE TO MID-THIGH FDG, ACC: [id number], dated :19:17 FINDINGS LINES AND DEVICES: None LUNGS AND AIRWAYS: *Multiple pulmonary nodules, including a 10 mm left upper lobe nodule, 13mm right upper lobe nodule, 17 mm left lower lobe nodule, and 2.0 cmsubpleural right lower lobe nodule. *Right lower lobe segmental endobronchial mucous plugging with mildpartial atelectasis of the right lower lobe. PLEURA: No pleural effusion. VESSELS: Calcified coronary artery and thoracic aortic atheroscleroticplaque. HEART: No pericardial effusion. Mitral annular calcifications. MEDIASTINUM AND ARIE: Bilateral hilar lymphadenopathy, for example a lefthilar lymph node measuring 1.5 cm in short axis. CHEST WALL/SOFT TISSUES: Bilateral mastectomies. Subcutaneous 1.2 x 2.1cm lesion at the right upper back (4:32). No axillary lymphadenopathy bysize criteria. 0.7 cm right axillary lymph node. ABDOMEN/PELVIS: LIVER: Multiple bilobar lesions, the largest measuring 3.9 cm in the leftlobe and 3.0 cm in the right lobe. BILE DUCTS: Unremarkable GALLBLADDER: Cholelithiasis. PANCREAS: Unremarkable SPLEEN: 1.5 cm lesion. ADRENALS: Mild bilateral adrenal gland thickening. KIDNEYS/URETERS: Small cortical cysts and a few too small to characterizehypodensities. BLADDER: Ramirez catheter. BOWEL: Colonic diverticulosis. Normal caliber noninflamed appendix.Small hiatal hernia. Oral contrast in the thoracic esophagus consistentwith reflux. LYMPH NODES: 1.3 cm aortocaval lymph node (4:413), 1.3 cm left peritoneallymph node (4:14), and 0.9 cm left peritoneal lymph node (4:424). VESSELS: Atherosclerotic plaque. REPRODUCTIVE ORGANS: 0.6 cm hypodense lesion at the periphery of theposterior uterine body/fundus (11:98), possibly an implant. PERITONEUM/RETROPERITONEUM: 1.2 x 0.8 cm peritoneal nodule (4:519).Smaller peritoneal nodules, including a 0.5 cm nodule in the anteriorabdomen (4:451). ABDOMINAL WALL/SOFT TISSUES: Partially calcified 1.8 x 2.8 cm subcutaneousnodule at the right anterior abdominal wall (4:436), and a fewsubcutaneous nodules measuring 0.6 cm (4:306), 0.7 cm (4:578), and 0.6 cm(4:686). BONES: Small lytic lesion at the right pubic tubercle additional FDG avidosseous foci on the preceding PET are less conspicuous on this study. IMPRESSION IMPRESSION Thoracic and abdominal metastases involving the lungs, liver, lymph nodes,peritoneum, subcutaneous tissues, and bones. Maria Del Carmen IBRAHIM RAD CT Fi nal Result * (ABNORMAL) GLUCOSE METER, POINT OF CARE (12/30/2024 5:39 AM EDT) Pathologist [facility] Glucose - POCT 157(H) 70 - 120 mg/dL 12/30/2024 5:42 AM EDT [facility] Blood Whole blood specimen / Unknown 12/30/2024 5:39 AM EDT 12/30/2024 5:42 AM EDT Eduardo Ly MD LAB POINT OF CARE TE ST DOCKED DEVICE UNSOLICITED RESULTS Final Result [facility] [address] [place] [address] * PHOSPHORUS (12/30/2024 5:22 AM EDT) [facility] Phosphorus 3.4 2.5 - 4.8 mg/dL 12/30/2024 6:03 AM EDT LABORATORY [facility] Blood Capillary blood specimen / Unknown Capillary / Unknown 12/30/2024 5:22 AM EDT 12/30/2024 5:33 AM EDT Maria Del Carmen IBRAHIM LAB BLOOD ORDERABL ES Final Result LABORATORY [facility] [address] [place] [address] * MAGNESIUM (12/30/2024 5:22 AM EDT) Pathologist [facility] Magnesium 2.0 1.5 - 2.6 mg/dL 12/30/2024 6:03 AM EDT LABORATORY [facility] Blood Capillary blood specimen / Unknown Capillary / Unknown 12/30/2024 5:22 AM EDT 12/30/2024 5:33 AM EDT us Maria Del Carmen IBRAHIM LAB BLOOD ORDERABL ES Final Result Performing Organization Address City/[facility]/ZIP Co de Phone Number LABORATORY [facility] [address] [place] [address] * (ABNORMAL) BASIC METABOLIC PANEL (12/30/2024 5:22 AM EDT) Pathologist [facility] BUN 14 6 - 20 mg/dL 12/30/2024 6:03 AM EDT [facility] CREATININE 0.5 0.5 - 1.0 mg/dL 12/30/2024 6:03 AM EDT [facility] EGFR >90 >=60 mL/min 12/30/2024 6:03 AM EDT [facility] Comment:eGFR is calculated b ased on the CKD-EPI 2020 equation. SODIUM 135 135 - 146 mmol/L 12/30/2024 6:03 AM EDT [facility] POTASSIUM 4.5 3.5 - 5.1 mmol/L 12/30/2024 6:03 AM EDT [facility] CHLORIDE 101 98 - 107 mmol/L 12/30/2024 6:03 AM EDT [facility] CO2 21(L) 22 - 32 mmol/L 12/30/2024 6:03 AM EDT [facility] ANION GAP 13 7 - 15 mmol/L 12/30/2024 6:03 AM EDT [facility] GLUCOSE 154(H) 70 - 120 mg/dL 12/30/2024 6:03 AM EDT [facility] CALCIUM 9.2 8.4 - 10.2 mg/dL 12/30/2024 6:03 AM EDT [facility] Blood Capillary blood specimen / Unknown Capillary / Unknown 12/30/2024 5:22 AM EDT 12/30/2024 5:33 AM EDT us Maria Del Carmen IBRAHIM LAB BLOOD ORDERABL ES Final Result LABORATORY [facility] [address] [place] [address] * (ABNORMAL) CBC (12/30/2024 5:22 AM EDT) Pathologist [facility] WBC 11.49(H) 4.00 - 10.80 K/uL 12/30/2024 6:17 AM EDT LABORATORY [facility] RBC 4.23 3.85 - 5.15 M/uL 12/30/2024 6:17 AM EDT LABORATORY [facility] HGB 11.6(L) 12.0 - 15.3 g/dL 12/30/2024 6:17 AM EDT LAB[facility] HCT 35.7(L) 36.0 - 45.2 % 12/30/2024 6:17 AM EDT LABORATORY [facility] MCV 84.4 81.5 - 97.5 fL 12/30/2024 6:17 AM EDT LABORATORY [facility] MCH 27.4 27.0 - 34.0 pg 12/30/2024 6:17 AM EDT LABORATORY [facility] MCHC 32.5 32.0 - 36.0 g/dL 12/30/2024 6:17 AM EDT LABORATORY [facility] RDW 14.1 11.5 - 15.5 % 12/30/2024 6:17 AM EDT LABORATORY [facility] PLT 316 140 - 400 K/uL 12/30/2024 6:17 AM EDT LABORATORY [facility] MPV 10.0 6.6 - 11.1 fL 12/30/2024 6:17 AM EDT LABORATORY [facility] nRBCs 0 <=0 /100 WBCs 12/30/2024 6:17 AM EDT LABORATORY [facility] Blood Capillary blood specimen / Unknown Capillary / Unknown 12/30/2024 5:22 AM EDT 12/30/2024 5:33 AM EDT us Maria Del Carmen IBRAHIM LAB BLOOD ORDERABL ES Final Result LABORATORY [facility] [address] [place] [address] * (ABNORMAL) HEMOGLOBIN A1C (12/30/2024 3:11 AM EDT) [facility] Hemoglobin A1C 7.1(H) 4.0 - 5.6 % 12/30/2024 4:09 AM EDT LABORATORY [facility] Comment:The use of HbA1c to monitor glycemic status is based on normal hemoglobin and HbA composition. This test should not be used in patients with abnormal hemoglobin that affects the half life of the red blood cell or the in vivo glycation rates. Estimated Average Glucose 157(H) <126 mg/dL 12/30/2024 4:09 AM EDT LABORATORY [facility] Blood Venous blood specimen / Unknown Venipuncture / Unknown 12/30/2024 3:11 AM EDT 12/30/2024 3:18 AM EDT Maria Del Carmen IBRAHIM LAB BLOOD ORDERABL ES Final Result Performing Organization Address [facility] Co de Phone Number LABORATORY [address] [address] * PT INR (12/30/2024 3:10 AM EDT) Prothrombin Time 12.7 11.6 - 15.2 seconds 12/30/2024 3:31 AM EDT LABORATORY [facility] INR 0.9 0.8 - 1.2 12/30/2024 3:31 AM EDT LABORATORY [facility] Blood Venous blood specimen / Unknown Venipuncture / Unknown 12/30/2024 3:10 AM EDT 12/30/2024 3:17 AM EDT Narrative LABORATORY [facility] - 12/30/2024 3:31 AM EDT Warfarin Therapy INR: 2.0-3.0 conventional anticoagulation INR: 2.5-3.5 high intensity anticoagulation Maria Del Carmen IBRAHIM LAB BLOOD ORDERABL ES Final Result Performing Organization Address [facility] Co de Phone Number LABORATORY [address] [address] * APTT (12/30/2024 3:10 AM EDT) aPTT 25 21 - 38 seconds 12/30/2024 3:31 AM EDT LABORATORY [facility] Blood Venous blood specimen / Unknown Venipuncture / Unknown 12/30/2024 3:10 AM EDT 12/30/2024 3:17 AM EDT Narrative LABORATORY [facility] - 12/30/2024 3:31 AM EDT Anticoagulation may affect testing. Refer to [employer] Test Catalog for a list of effects. Maria Del Carmen IBRAHIM LAB BLOOD ORDERABL ES Final Result Performing Organization Address City/[facility]/ZIP Co de Phone Number LABORATORY [facility] [address] [place] [address] * (ABNORMAL) HEPATIC FUNCTION PANEL (12/30/2024 3:10 AM EDT) [facility] Albumin 3.8 3.8 - 5.0 g/dL 12/30/2024 3:47 AM EDT LABORATORY [facility] AST 68(H) 10 - 35 U/L 12/30/2024 3:47 AM EDT LAB[facility]ATORY [facility] Alkaline Phosphatase 204(H) 35 - 130 U/L 12/30/2024 3:47 AM EDT LAB[facility]ATORY [facility] ALT 64(H) 10 - 35 U/L 12/30/2024 3:47 AM EDT LAB[facility]ATORY [facility] Bilirubin, Total 0.2 <=1.2 mg/dL 12/30/2024 3:47 AM EDT LAB[facility]ATORY [facility] Bilirubin, Direct 0.1 0.0 - 0.3 mg/dL 12/30/2024 3:47 AM EDT LAB[facility]ATORY [facility] Protein 7.3 6.0 - 8.3 g/dL 12/30/2024 3:47 AM EDT LABORATORY [facility] Blood Venous blood specimen / Unknown Venipuncture / Unknown 12/30/2024 3:10 AM EDT 12/30/2024 3:18 AM EDT Maria Del Carmen IBRAHIM LAB BLOOD ORDERABL ES Final Result Performing Organization Address [facility]/ZIP Co de Phone Number LABORATORY [facility] [address] [place] [address] * PHOSPHORUS (12/30/2024 3:10 AM EDT) Phosphorus 3.4 2.5 - 4.8 mg/dL 12/30/2024 3:47 AM EDT LABORATORY C Blood Venous blood specimen / Unknown Venipuncture / Unknown 12/30/2024 3:10 AM EDT 12/30/2024 3:18 AM EDT Maria Del Carmen IBRAHIM LAB BLOOD ORDERABL ES Final Result Performing Organization Address [facility] Co de Phone Number LABORATORY [facility] [address] [place] [address] * MAGNESIUM (12/30/2024 3:10 AM EDT) Magnesium 2.1 1.5 - 2.6 mg/dL 12/30/2024 3:47 AM EDT LABORATORY C Blood Venous blood specimen / Unknown Venipuncture / Unknown 12/30/2024 3:10 AM EDT 12/30/2024 3:18 AM EDT Maria Del Carmen IBRAHIM LAB BLOOD ORDERABL ES Final Result Performing Organization Address [facility] de Phone Number LABORATORY [place] [address] [place] [address] * (ABNORMAL) BASIC METABOLIC PANEL (12/30/2024 3:10 AM EDT) Pathologist [facility] BUN 15 6 - 20 mg/dL 12/30/2024 3:47 AM EDT LABORATORY [facility] CREATININE 0.6 0.5 - 1.0 mg/dL 12/30/2024 3:47 AM EDT LABORATORY [facility] EGFR >90 >=60 mL/min 12/30/2024 3:47 AM EDT LABORATORY [facility] Comment:eGFR is calculated b ased on the CKD-EPI 2020 equation. SODIUM 133(L) 135 - 146 mmol/L 12/30/2024 3:47 AM EDT LAB[facility]ATORY [facility] POTASSIUM 4.6 3.5 - 5.1 mmol/L 12/30/2024 3:47 AM EDT LAB[facility]ATORY [facility] CHLORIDE 99 98 - 107 mmol/L 12/30/2024 3:47 AM EDT LAB[facility]ATORY [facility] CO2 21(L) 22 - 32 mmol/L 12/30/2024 3:47 AM EDT LAB[facility]ATORY [facility] ANION GAP 13 7 - 15 mmol/L 12/30/2024 3:47 AM EDT LAB[facility]ATORY [facility] GLUCOSE 180(H) 70 - 120 mg/dL 12/30/2024 3:47 AM EDT LAB[facility]ATORY [facility] CALCIUM 9.3 8.4 - 10.2 mg/dL 12/30/2024 3:47 AM EDT LAB[facility]ATORY [facility] Blood Venous blood specimen / Unknown Venipuncture / Unknown 12/30/2024 3:10 AM EDT 12/30/2024 3:18 AM EDT us Maria Del Carmen IBRAHIM LAB BLOOD ORDERABL ES Final Result LABORATORY [facility] [address] [place] [address] * (ABNORMAL) CBC (12/30/2024 3:10 AM EDT) WBC 11.05(H) 4.00 - 10.80 K/uL 12/30/2024 3:24 AM EDT LAB[facility]ATORY [facility] RBC 4.28 3.85 - 5.15 M/uL 12/30/2024 3:24 AM EDT LAB[facility]ATORY [facility] HGB 11.8(L) 12.0 - 15.3 g/dL 12/30/2024 3:24 AM EDT LAB[facility]ATORY [facility] HCT 37.4 36.0 - 45.2 % 12/30/2024 3:24 AM EDT LAB[facility]ATORY [facility] MCV 87.4 81.5 - 97.5 fL 12/30/2024 3:24 AM EDT LAB[facility]ATORY [facility] MCH 27.6 27.0 - 34.0 pg 12/30/2024 3:24 AM EDT LAB[facility]ATORY [facility] MCHC 31.6 32.0 - 36.0 g/dL 12/30/2024 3:24 AM EDT LAB[facility]ATORY [facility] RDW 14.3 11.5 - 15.5 % 12/30/2024 3:24 AM EDT LAB[facility]ATORY [facility] PLT 299 140 - 400 K/uL 12/30/2024 3:24 AM EDT LABORATORY [facility] MPV 9.4 6.6 - 11.1 fL 12/30/2024 3:24 AM EDT LABORATORY [facility] nRBCs 0 <=0 /100 WBCs 12/30/2024 3:24 AM EDT LABORATORY C Blood Venous blood specimen / Unknown Venipuncture / Unknown 12/30/2024 3:10 AM EDT 12/30/2024 3:18 AM EDT Maria Del Carmen IBRAHIM LAB BLOOD ORDERABL ES Final Result Performing Organization Address City/[facility]/ZIP Co de Phone Number LABORATORY [facility] [address] [place] [address] * LACTATE (12/30/2024 3:09 AM EDT) [facility] Lactate 1.1 0.4 - 2.0 mmol/L 12/30/2024 3:41 AM EDT LABORATORY [facility] Blood Venous blood specimen / Unknown Venipuncture / Unknown 12/30/2024 3:09 AM EDT 12/30/2024 3:18 AM EDT Maria Del Carmen IBRAHIM LAB BLOOD ORDERABL ES Final Result Performing Organization Address City/[facility]/ZIP Co de Phone Number LABORATORY [facility] [address] [place] [address] documented in this encounter Visit Diagnoses Diagnosis Breast cancer metastasized to brain, left (HCC)- Primary Chest pain Chest pain, unspecified Breast carcinoma, female, right (HCC) Brain mass Unspecified condition of brain Triple negative breast cancer (HCC) Epileptic seizure (HCC) Unspecified epilepsy without mention of intractable epilepsy Triple negative breast cancer (HCC) Neoplasm related pain Neoplasm related pain (acute) (chronic) Other constipation Nausea and vomiting Nausea with vomiting Palliative care encounter Encounter for palliative care Goals of care, counseling/discussion Other specified counseling Brain mass Unspecified condition of brain Lumbar radiculopathy Thoracic or lumbosacral neuritis or radiculitis, unspecified documented in this encounter Administered Medications Inactive Administered Medications - up to 3 most recent administrations Medication Order MAR Action Action Date Dose Rate Site Acetaminophen (Tylenol) tab 650 mg 650 mg, Oral, Q8H PRN Pain, Mild, Headache, Fever >38C(100.5F), Starting on Fri12/30/24 at 1557, Until Fri12/31/24 at 2110, Maximum of 4 grams (4000 mg) per day. Given 12/30/2024 4:06 PM EDT 650 mg atorvaSTATin (Lipitor) tab 80 mg 80 mg, Oral, Daily(AM), First dose on Fri12/30/24 at 0900, Until Discontinued Given 12/31/2024 8:26 AM EDT 80 mg Given 12/30/2024 7:59 AM EDT 80 mg Barium Sulfate 2% (Readi-Cat 2) oral susp 450 mL 450 mL, Oral, ONCE, On Fri12/30/24 at 0915, For 1 dose, Radiology Medication Routing (Non-IR) Given 12/30/2024 9:15 AM EDT 450 mL chlorHEXIDINE (Periogard) 0.12 % oral rinse 15 mL 15 mL, Oral mucosal membrane, BID (799,1999), First dose on Fri12/30/24 at 0800, Until Discontinued, Include oral/gum/tooth brushing with medication. Use prepackaged oral kit suction tooth brush if available. Given 12/31/2024 8:31 AM EDT 15 mL Given 12/30/2024 8:00 PM EDT 15 mL Given 12/30/2024 8:00 AM EDT 15 mL dexAMETHasone (Decadron) tab 4 mg 4 mg, Oral, Q6H, First dose (after last modification) on Fri12/30/24 at 1200, Until Discontinued Given 12/31/2024 12:01 PM EDT 4 mg Given 12/31/2024 6:13 AM EDT 4 mg Given 12/31/2024 12:29 AM EDT 4 mg dexAMETHasone Sodium Phosphate (Decadron) 10 MG/ML inj 10 mg 10 mg, IV Push, ONCE, On Michelle 12/30/24 at 0515, For 1 dose, PROTECT FROM LIGHT Given 12/30/2024 5:35 AM EDT 10 mg dextrose 50% inj 25 mL 25 mL, IV Push, PRN Hypoglycemia, Other, For blood glucose 54 - 69 mg/dL or 70 - 100 mg/dL with symptoms AND patient is unresponsive, NPO, OR unable to swallow, Starting on Fri12/30/24 at 0244, Until Fri12/31/24 at 2109, Administer IV. Recheck blood glucose after 15 minutes. Notify provider. dextrose 50% inj 50 mL 50 mL, IV Push, PRN Hypoglycemia, Other, For blood glucose below 54 mg/dL AND patient unresponsive, NPO, OR unable to swallow, Starting on Fri12/30/24 at 0244, Until Fri12/31/24 at 2109, Administer IV. Recheck blood glucose in 15 minutes. Notify provider. gadobutrol (Gadavist) inj 6.7 mL 6.7 mL (rounded from 6.66 mL = 0.1 mL/kg 66.6 kg), Intravenous, ONCE, On [facility] 12/30/24 at 1845, For 1 dose, Radiology Medication Routing (Non-IR) Given 12/30/2024 6:45 PM EDT 6.7 mL glucagon (Glucagen) inj 1 mg 1 mg, Intramuscular, PRN Hypoglycemia, Other, If patient is unresponsive, or NPO and has no IV access, Starting on Fri12/30/24 at 0244, Until Fri12/31/24 at 2109, NPO and no IV access with either 1) blood glucose less than 100 mg/dL and symptomatic OR 2) blood glucose less than 70 mg/dL and asymptomatic Glucose (Glutose 15) 40 % gel 15 g of glucose 15 g of glucose, Oral, PRN Hypoglycemia (low sugar), Other, For blood glucose 54 - 69 mg/dL or 70 - 100 mg/dL with symptoms AND patient alert WITH difficulty chewing/swallowing, Starting on Fri12/30/24 at 0244, Until Fri12/31/24 at 2109, Administer gel. Recheck blood glucose after 15 minutes. Notify provider. 37.5 gram tube = 15 grams glucose = 1 each Glucose (Glutose 15) 40 % gel 30 g of glucose 30 g of glucose, Oral, PRN Hypoglycemia (low sugar), Other, For blood glucose below 54 mg/dL AND patient alert WITH difficulty chewing/swallowing, Starting on Michelle 12/30/24 at 0244, Until Fri12/31/24 at 2110, Administer gel. Recheck blood glucose after 15 minutes. Notify provider. 37.5 gram tube = 15 grams glucose = 1 each glucose chew tab 16 g 16 g, Oral, PRN Hypoglycemia, Other, For blood glucose 54 - 69 mg/dL or 70 - 100 mg/dL with symptoms and patient alert without difficulty chewing/swallowing., Starting on Fri12/30/24 at 0244, Until Fri12/31/24 at 2110 hEParin inj 5,000 Units 5,000 Units, Subcutaneous, Q8H, First dose on Fri12/30/24 at 1530, Last dose on Fri12/30/24 at 2200, For 2 doses Given 12/30/2024 8:55 PM EDT 5,000 Units Abdomen Left Lower Given 12/30/2024 4:05 PM EDT 5,000 Units A bdomen Left Lower hEParin inj 5,000 Units 5,000 Units, Subcutaneous, Q8H, First dose on Fri12/31/24 at 1400, Until Discontinued insulin aspart (NovoLOG) inj Subcutaneous, Q6H, First dose on Fri12/30/24 at 0600, Until Discontinued, MEDIUM DOSE (Usual starting dose): Sliding Scale Correctional insulin may be given if the patient is NPO. Dose based on standard build from Insulin Calculator. Do not modify insulin doses in administration instructions!, Glucose less than 70 instructions: Obtain STAT lab blood glucose and call covering provider., Glucose 80-150 (units): 0, Glucose 151-200 (units): 2, Glucose 201-250 (units): 4, Glucose 251-300 (units): 6, Glucose greater than 300 (units): 8, Glucose greater than 300 instructions: Give suggested insulin dose and call covering provider. Given 12/30/2024 6:19 PM EDT 6 Units Abdomen Right Upper Given 12/30/2024 11:51 AM EDT 4 Units A bdomen Left Upper Given 12/30/2024 5:42 AM EDT 1 Units Ab domen Left Lower insulin aspart (NovoLOG) inj Subcutaneous, Q6H, First dose on Fri12/30/24 at 1900, Until Discontinued, HIGH DOSE - Steroid Patients (Steroid patient recommended Starting dose): Sliding Scale Correctional insulin may be given if the patient is NPO. Dose based on standard build from Insulin Calculator. Do not modify insulin doses in administration instructions!, Glucose less than 70 instructions: Obtain STAT lab blood glucose and call covering provider., Glucose 80-150 (units): 0, Glucose 151-200 (units): 4, Glucose 201-250 (units): 8, Glucose 251-300 (units): 12, Glucose greater than 300 (units): 15, Glucose greater than 300 instructions: Give suggested insulin dose and call covering provider. Given 12/31/2024 12:30 AM EDT 12 Units Abdomen Right Lower insulin aspart (NovoLOG) inj Subcutaneous, Q6H, First dose (after last modification) on Fri12/31/24 at 0600, Until Discontinued, HIGH DOSE - Steroid Patients (Steroid patient recommended Starting dose): Sliding Scale Correctional insulin may be given if the patient is NPO. Dose based on standard build from Insulin Calculator. Do not modify insulin doses in administration instructions!, Glucose less than 70 instructions: Obtain STAT lab blood glucose and call covering provider., Glucose 80-150 (units): 0, Glucose 151-200 (units): 4, Glucose 201-250 (units): 8, Glucose 251-300 (units): 12, Glucose greater than 300 (units): 15, Glucose greater than 300 instructions: Give suggested insulin dose and call covering provider. Given 12/31/2024 12:02 PM EDT 12 Units Abdomen Left Lower Given 12/31/2024 6:13 AM EDT 4 Units Ab domen Left Lower Iopamidol (Isovue 370) inj 80 mL 80 mL, Intravenous, ONCE, On Fri12/30/24 at 0915, For 1 dose, Radiology Medication Routing (Non-IR) Given 12/30/2024 9:15 AM EDT 80 mL levETIRAcetam (Keppra) tab 500 mg 500 mg, Oral, BID (.AM/PM), First dose on Fri12/30/24 at 0900, Until Discontinued Given 12/31/2024 8:26 AM EDT 500 mg Given 12/30/2024 8:55 PM EDT 500 mg Given 12/30/2024 7:59 AM EDT 500 mg levothyroxine (Levoxyl) tab 100 mcg 100 mcg, Oral, [id number], First dose on Fri12/30/24 at 0630, Until Discontinued Given 12/31/2024 6:14 AM EDT 100 mcg Given 12/30/2024 5:32 AM EDT 100 mcg omeprazole (PriLOSEC) cap 20 mg 20 mg, Oral, Daily(AM), First dose on Fri12/31/24 at 0900, Until Discontinued, This med should NOT be Crushed or Chewed Given 12/31/2024 8:26 AM EDT 20 mg Oral Hygiene: Mouth Swab with dentifrice Oral, Q4H LIMITED (00;04;12;16), First dose on Fri12/30/24 at 0400, Until Discontinued, To be used with 1.5% hydrogen peroxide solution or 0.05% cetylpyridium chloride oral rinse Given 12/31/2024 4:00 AM EDT Given 12/31/2024 12:00 AM EDT Given 12/30/2024 11:51 AM EDT 1 Kit Pantoprazole (Protonix) inj 20 mg 20 mg, IV Push, Q12H, First dose on Fri12/30/24 at 0900, Until Discontinued, IV push instructions: Flush I.V. Line before and after administration. In-line filter not required. 2-minute infusion: The volume of reconstituted solution (4mg/ml) to be injected may be administered intravenously over at least 2 minutes. ( Dilute each vial with 10 ml of 0.9% saline PF) Given 12/30/2024 7:59 AM EDT 20 mg potassium and sodium phosphate (Phos-Nak) oral powder 1 Packet 1 Packet, Oral, TID 06;12;18, First dose on Fri12/31/24 at 0730, Last dose on Fri12/31/24 at 0730, For 1 dose, Mix in 1/3 glass of water, stir well and administer promptly. 1 packet contains Phosphorus 250 mg (~8 mMoles) + potassium 280 mg (~7.125 mEq) + sodium 160mg (~7.125 mEq) Given 12/31/2024 8:25 AM EDT 1 Packet senna (Senokot) 1 Tablet 1 Tablet, Oral, Daily(AM), First dose on Fri12/30/24 at 0900, Until Discontinued Given 12/30/2024 7:59 AM EDT 1 Ta blet senna (Senokot) 1 Tablet 1 Tablet, Oral, BID (.AM/PM), First dose (after last modification) on Michelle 12/30/24 at 2100, Until Discontinued Given 12/31/2024 8:26 AM EDT 1 Tablet Given 12/30/2024 8:55 PM EDT 1 Tablet sodium chloride 0.9 % flush peripheral fernando 3 mL 3 mL, IV Push, Q8H, First dose on Michelle 12/30/24 at 0600, Until Discontinued, Do not flush if lock, PICC, or central line not in place; IV infusing or unable to flush. Given 12/31/2024 2:00 PM EDT 3 mL Given 12/31/2024 6:00 AM EDT 3 mL Given 12/30/2024 10:00 PM EDT 3 mL sodium chloride 0.9 % flush/inj 10 mL 10 mL, IV Push, ONCE, On [facility] 12/30/24 at 1845, For 1 dose, Do not flush if lock, PICC, or central line not in place; IV infusing or unable to flush., Radiology Medication Routing (Non-IR) Given 12/30/2024 6:45 PM EDT 10 mL documented in this encounter Active and Recently Administered Medications Times are shown in EDT. Scheduled Medication Order 12/29/2024 12/30/2024 12/31/2024 atorvaSTATin (Lipitor) tab 80 mg 80 mg, Oral, Daily(AM), First dose on Michelle 12/30/24 at 0900, Until Discontinued 0759 (Given - Provider: Denilson Davis RN) 0826 (Given - Provider: Kenji Graham RN) Barium Sulfate 2% (Readi-Cat 2) oral susp 450 mL (COMPLETED) 450 mL, Oral, ONCE, On [facility] 12/30/24 at 0915, For 1 dose, Radiology Medication Routing (Non-IR) 914 (Given - Provider: Caden Schwartz RT) chlorHEXIDINE (Periogard) 0.12 % oral rinse 15 mL 15 mL, Oral mucosal membrane, BID (799,1999), First dose on [facility] 12/30/24 at 0800, Until Discontinued, Include oral/gum/tooth brushing with medication. Use prepackaged oral kit suction tooth brush if available. 08 (Given - Provider: Denilson Davis RN)1999 (Given - Provider: Megan Bui RN) 0831 (Given - Provider: Kenji Graham, RN) dexAMETHasone (Decadron) tab 4 mg 4 mg, Oral, Q6H, First dose (after last modification) on Michelle 12/30/24 at 1200, Until Discontinued 1151 (Given - Provider: Denilson Davis RN)1819 (Given - Provider: Denilson Davis RN) 0029 (Given - Provider: Megan Bui RN)0613 (Given - Provider: Megan Bui RN)1201 (Given - Provider: Kenji Graham, RN) dexAMETHasone Sodium Phosphate (Decadron) 10 MG/ML inj 10 mg (COMPLETED) 10 mg, IV Push, ONCE, On Michelle 12/30/24 at 0515, For 1 dose, PROTECT FROM LIGHT 0535 (Given - Provider: Megan Bui RN) gadobutrol (Gadavist) inj 6.7 mL (COMPLETED) 6.7 mL (rounded from 6.66 mL = 0.1 mL/kg 66.6 kg), Intravenous, ONCE, On [facility] 12/30/24 at 1845, For 1 dose, Radiology Medication Routing (Non-IR) 1845 (Given - Provider: Alison Molina, RT (R)) hEParin inj 5,000 Units (COMPLETED) 5,000 Units, Subcutaneous, Q8H, First dose on Fri12/30/24 at 1530, Last dose on Fri12/30/24 at 2200, For 2 doses 1605 (Given - Provider: Denilson Davis RN)5 (Given - Provider: Megan Bui RN) hEParin inj 5,000 Units 5,000 Units, Subcutaneous, Q8H, First dose on Fri12/31/24 at 1400, Until Discontinued 1400 (Not Given - Provider: Denilson Davis RN - Reason: Refused-Notify Provider) insulin aspart (NovoLOG) inj (CANCELED) Subcutaneous, Q6H, First dose on Michelle 12/30/24 at 0600, Until Discontinued, MEDIUM DOSE (Usual starting dose): Sliding Scale Correctional insulin may be given if the patient is NPO. Dose based on standard build from Insulin Calculator. Do not modify insulin doses in administration instructions!, Glucose less than 70 instructions: Obtain STAT lab blood glucose and call covering provider., Glucose 80-150 (units): 0, Glucose 151-200 (units): 2, Glucose 201-250 (units): 4, Glucose 251-300 (units): 6, Glucose greater than 300 (units): 8, Glucose greater than 300 instructions: Give suggested insulin dose and call covering provider. 0542 (Given - Provider: Megan Bui RN)1151 (Given - Provider: Denilson Davis RN)1819 (Given - Provider: Denilson Davis RN) insulin aspart (NovoLOG) inj (CANCELED) Subcutaneous, Q6H, First dose on Fri12/30/24 at 1900, Until Discontinued, HIGH DOSE - Steroid Patients (Steroid patient recommended Starting dose): Sliding Scale Correctional insulin may be given if the patient is NPO. Dose based on standard build from Insulin Calculator. Do not modify insulin doses in administration instructions!, Glucose less than 70 instructions: Obtain STAT lab blood glucose and call covering provider., Glucose 80-150 (units): 0, Glucose 151-200 (units): 4, Glucose 201-250 (units): 8, Glucose 251-300 (units): 12, Glucose greater than 300 (units): 15, Glucose greater than 300 instructions: Give suggested insulin dose and call covering provider. 1900 (Not Given - Provider: Denilson Davis RN - Reason: Other- Please add reason in Comments - Comment: Already gave patient 1800 insulin dose) 0030 (Given - Provider: Megan Bui RN) insulin aspart (NovoLOG) inj Subcutaneous, Q6H, First dose (after last modification) on Fri12/31/24 at 0600, Until Discontinued, HIGH DOSE - Steroid Patients (Steroid patient recommended Starting dose): Sliding Scale Correctional insulin may be given if the patient is NPO. Dose based on standard build from Insulin Calculator. Do not modify insulin doses in administration instructions!, Glucose less than 70 instructions: Obtain STAT lab blood glucose and call covering provider., Glucose 80-150 (units): 0, Glucose 151-200 (units): 4, Glucose 201-250 (units): 8, Glucose 251-300 (units): 12, Glucose greater than 300 (units): 15, Glucose greater than 300 instructions: Give suggested insulin dose and call covering provider. 0613 (Given - Provid er: Megan Bui RN)1202 (Given - Provider: Kenji Graham, ISAIAH) Iopamidol (Isovue 370) inj 80 mL (COMPLETED) 80 mL, Intravenous, ONCE, On Fri12/30/24 at 0915, For 1 dose, Radiology Medication Routing (Non-IR) 0915 (Given - Provider: Caden Schwartz, RT) levETIRAcetam (Keppra) tab 500 mg 500 mg, Oral, BID (.AM/PM), First dose on Fri12/30/24 at 0900, Until Discontinued 0759 (Given - Provider: Denilson Davis RN)2055 (Given - Provider: Megan Bui RN) 0826 (Given - Provider: Kenji Graham, ISAIAH) levothyroxine (Levoxyl) tab 100 mcg 100 mcg, Oral, [id number], First dose on Fri12/30/24 at 0630, Until Discontinued 0532 (Given - Provider: Megan Bui RN) 0614 (Given - Provider: Megan Bui RN) omeprazole (PriLOSEC) cap 20 mg 20 mg, Oral, Daily(AM), First dose on Fri12/31/24 at 0900, Until Discontinued, This med should NOT be Crushed or Chewed 0826 (Given - Provid er: Kenji Graham, ISAIAH) Oral Hygiene: Mouth Swab with dentifrice Oral, Q4H LIMITED (00;04;12;16), First dose on Fri12/30/24 at 0400, Until Discontinued, To be used with 1.5% hydrogen peroxide solution or 0.05% cetylpyridium chloride oral rinse 0407 (Given - Provider: Megan Bui RN)1151 (Given - Provider: Denilson Davis RN)1600 (Not Given - Provider: Denilson Davis RN - Reason: Refused-Notify Provider) 0000 (Given - Provider: Megan Bui RN)0400 (Given - Provider: Megan Bui RN)1200 (Not Given - Provider: Kenji Graham RN - Reason: Refused-Notify Provider)1600 (Not Given - Provider: Denilson Davis RN - Reason: Refused-Notify Provider) Pantoprazole (Protonix) inj 20 mg (CANCELED) 20 mg, IV Push, Q12H, First dose on Fri12/30/24 at 0900, Until Discontinued, IV push instructions: Flush I.V. Line before and after administration. In-line filter not required. 2-minute infusion: The volume of reconstituted solution (4mg/ml) to be injected may be administered intravenously over at least 2 minutes. ( Dilute each vial with 10 ml of 0.9% saline PF) 0759 (Given - Provider: Denilson Davis RN) potassium and sodium phosphate (Phos-Nak) oral powder 1 Packet (COMPLETED) 1 Packet, Oral, TID 06;12;18, First dose on Fri12/31/24 at 0730, Last dose on Fri12/31/24 at 0730, For 1 dose, Mix in 1/3 glass of water, stir well and administer promptly. 1 packet contains Phosphorus 250 mg (~8 mMoles) + potassium 280 mg (~7.125 mEq) + sodium 160mg (~7.125 mEq) 0825 (Given - Provid er: Kenji Graham RN) senna (Senokot) 1 Tablet (CANCELED) 1 Tablet, Oral, Daily(AM), First dose on Fri12/30/24 at 0900, Until Discontinued 075 (Given - Provider: Denilson Davis RN) senna (Senokot) 1 Tablet 1 Tablet, Oral, BID (.AM/PM), First dose (after last modification) on Fri12/30/24 at 2100, Until Discontinued 2054 (Given - Provider: Megan Bui RN) 08 (Given - Provider: Kenji Graham RN) sodium chloride 0.9 % flush peripheral fernando 3 mL 3 mL, IV Push, Q8H, First dose on Fri12/30/24 at 0600, Until Discontinued, Do not flush if lock, PICC, or central line not in place; IV infusing or unable to flush. 0600 (Given - Provider: Megan Bui RN)1400 (Given - Provider: Denilson Davis RN)2200 (Given - Provider: Megan Bui, ISAIAH) 0600 (Given - Provider: Megan Bui, ISAIAH)1400 (Given - Provider: Denilson Davis RN) sodium chloride 0.9 % flush/inj 10 mL (COMPLETED) 10 mL, IV Push, ONCE, On Michelle 12/30/24 at 1845, For 1 dose, Do not flush if lock, PICC, or central line not in place; IV infusing or unable to flush., Radiology Medication Routing (Non-IR) 1845 (Given - Provider: Megan Bui, ISAIAH) PRN Medication Order 12/29/2024 12/30/2024 12/31/2024 Acetaminophen (Tylenol) tab 650 mg 650 mg, Oral, Q8H PRN Pain, Mild, Headache, Fever >38C(100.5F), Starting on Michelle 12/30/24 at 1557, Until Fri12/31/24 at 2110, Maximum of 4 grams (4000 mg) per day. 1606 (Given - Provider: Denilson Davis RN) dextrose 50% inj 25 mL 25 mL, IV Push, PRN Hypoglycemia, Other, For blood glucose 54 - 69 mg/dL or 70 - 100 mg/dL with symptoms AND patient is unresponsive, NPO, OR unable to swallow, Starting on Michelle 12/30/24 at 0244, Until Fri12/31/24 at 2110, Administer IV. Recheck blood glucose after 15 minutes. Notify provider. dextrose 50% inj 50 mL 50 mL, IV Push, PRN Hypoglycemia, Other, For blood glucose below 54 mg/dL AND patient unresponsive, NPO, OR unable to swallow, Starting on Michelle 12/30/24 at 0244, Until Fri12/31/24 at 2110, Administer IV. Recheck blood glucose in 15 minutes. Notify provider. glucagon (Glucagen) inj 1 mg 1 mg, Intramuscular, PRN Hypoglycemia, Other, If patient is unresponsive, or NPO and has no IV access, Starting on Michelle 12/30/24 at 0244, Until Fri12/31/24 at 2110, NPO and no IV access with either 1) blood glucose less than 100 mg/dL and symptomatic OR 2) blood glucose less than 70 mg/dL and asymptomatic Glucose (Glutose 15) 40 % gel 15 g of glucose 15 g of glucose, Oral, PRN Hypoglycemia (low sugar), Other, For blood glucose 54 - 69 mg/dL or 70 - 100 mg/dL with symptoms AND patient alert WITH difficulty chewing/swallowing, Starting on Michelle 12/30/24 at 0244, Until Fri12/31/24 at 2110, Administer gel. Recheck blood glucose after 15 minutes. Notify provider. 37.5 gram tube = 15 grams glucose = 1 each Glucose (Glutose 15) 40 % gel 30 g of glucose 30 g of glucose, Oral, PRN Hypoglycemia (low sugar), Other, For blood glucose below 54 mg/dL AND patient alert WITH difficulty chewing/swallowing, Starting on Michelle 12/30/24 at 0244, Until Fri12/31/24 at 2110, Administer gel. Recheck blood glucose after 15 minutes. Notify provider. 37.5 gram tube = 15 grams glucose = 1 each glucose chew tab 16 g 16 g, Oral, PRN Hypoglycemia, Other, For blood glucose 54 - 69 mg/dL or 70 - 100 mg/dL with symptoms and patient alert without difficulty chewing/swallowing., Starting on Michelle 12/30/24 at 0244, Until Fri12/31/24 at 0 ondansetron (Zofran) tab 4 mg 4 mg, Oral, Q8H PRN Nausea, Vomiting, Starting on Michelle 12/30/24 at 0356, Until Fri12/31/24 at 2110 documented in this encounter Advance Directives * [...] and were consensually agreed upon. Care Teams Journal Box Inspector Relationship Specialty Start Date End Date Lesly Castellon DO [address] [place] [address] PCP - General Family Medicine 10/21/24 documented as of this encounter
--- OUTSIDE RECORDS SUMMARY | 2025-01-19 18:34 | External Medical Summary | Summary of Care ---
Author Name Unknown Organization [facility] Address [address] [facility] [place] [address] Phone [phone] Care Team Providers Care Button Sewer Hand Name Role Phone Favian Castellon Primary Care Provider Reason for Visit * Reason Onset Date Comments Imaging Records Request 12/31/2024 Encounter Details Date Type Department Care Team (Late st Contact Info) Description 12/31/2024 Telephone Radiology Film File [address] [place] [address] Support, Imaging Radiology [address] [place] [address] Imaging Records Request Allergies No known active allergiesdocumented as [...] hemoglobin A1c goal of less than 8.0% ([facility]) Inject 5 units under the [...] on 10/21/2024 Vitamin D (Ergocalciferol) 1.25 MG (22838 UT) Oral Capsule (Drisdol) Take 1 capsule [...] Active Problems Problem Noted Date Diagnosed Date Breast cancer metastasized to brain, left 2024 [...] yrs 06/29/2015,01/19/2015,01/19 Pneumococcal Conjugate Vacci ne, 20-valent ([id number]) 06/27/2022 Pneumococcal Polysaccharide PPV23 (Pneumovax) 02/10/2007 Seasonal [...] encounter Miscellaneous Notes * Telephone Encounter - Michelle Arias, System Support - 12/31/2024 10:32 AM EDT Sathya Simmons requesting MRIs Brain 12/30/24 images be pushed through PACS. [place] Authorization to Release on file. Images pushed to [employer] PACS external connection. documented in this encounter Plan of Treatment Upcoming Encounters Date Type Department Care Team (Latest Contact Info) Description 01/12/2025 2:00 PM EDT Office Visit Hematology/Oncolog y [facility] [place] [address] [place] [phone] Eleuterio Zapata MD [address] [place] [address] 01/27/2025 8:00 AM EDT Office Visit Family [facility] [address] [place] [address] Favian Castellon, DO [address] [place] [address] 01/28/2025 1:46 PM EDT Hospital Encounter [facility] Operating Room [facility] [address] [place] [address] [place] [address] Thom Palomino, [address] [place] [phone] 01/28/2025 1:46 PM EDT - 01/28/2025 2:12 PM EDT Surgery [facility], Operating Room [facility] [address] [place], [place] [address] [address] Thom Palomino, DO [address] [place] [address] INJECTION TRANSFORAMINAL EPIDURAL LUMBAR OR SACRAL 03/23/2025 8:00 AM EDT Office Visit Pharmacy, [facility] [address] [facility] [place] [address] [place], [facility] [address] [facility] [place] [address] 03/24/2025 8:40 AM EDT Office Visit Neurology Sergio Z[facility] [place] [address] [place] [address] Tanya Mcpherson MD [address] [place] [address] Scheduled Procedures Name Priority Associated Diagnoses Date/Ti [...] completing the topic Pap Smear Discontinued 09/19/2020, 06/10/2016, 09/25/2012, Additional [...] encounter Medical Devices Implanted Type Area Supervisor Press Room Device Identifier Shelf Expiration Date Model / Serial / Lot Lens 24.0 Mx60e - [id number] - [id number] Implanted:Qty : 1 on 04/30/2018 by Martin Donnelly MD at OR [facility] Left: Eye [employer]OM[employer] 01/10/2021 [id number]-99.0 / [id number] / [id number] Mx60 +23.0d Implanted:Qty : 1 on 05/12/2018 by Martin Donnelly MD at OR [facility] Right: Eye 07/12/2020 HD3524.0 / [id number] / [id number] Duraclip 16mm Xlg Repostn - [id number] Implanted:Qty : 2 on 08/23/2022 by Sudhakar Martell MD at ENDOSCOPY [facility] Nano[employer]ord JESSICA 11/28/2023 [id number] / / Port Implant W/8f Poly Cath - [id number] Implanted:Qty : 1 on 09/18/2023 by Marty Quispe Jr., [place] at [facility] [place]NOTE 2] BARD : PERIPHERAL VASCULAR [id number] 03/12/2025 [id number] / / [id number] documented as of this encounter Advance Directives [...] and were consensually agreed upon. Care Teams Button Sewer Hand Relationship Specialty Start Date End Date Favian Castellon DO [address] [place] [address] PCP - General Family Medicine 10/21/24 documented as of this encounter
--- OUTSIDE RECORDS SUMMARY | 2025-01-19 18:34 | External Medical Summary | Summary of Care ---
Author Name Unknown Organization [facility] Address [address] [place] [address] Phone [phone] Care Team Providers Care Boot And Shoe Repairman Name Role Phone Favian Castellon Primary Care Provider Encounter Details Date Type Department Care Team (Latest Contact Info) Description 12/29/2024 9:00 PM EDT - 12/29/2024 11:59 PM EDT Hospital Encounter Radiology Film File [address] [place] [address] Arrived Discharge Disposition: Home - Self Care Allergies [...] 24 Active Vitamin D (Ergocalciferol) 1.25 MG (86875 UT) Oral Capsule (Drisdol) Take 1 capsule [...] bedtime. 30 mL 5 12/16/19 25 Active documented as of this encounter [...] yrs 06/29/2015,01/19/2015,01/19 Pneumococcal Conjugate Vacci ne, 20-valent (Ogczdtw19) 06/27/2022 Pneumococcal Polysaccharide PPV23 (Pneumovax) 02/10/2007 Seasonal [...] 2:00 PM EDT Office Visit Hematology/Oncolog y [facility] [address] [place] [phone] Eleuterio Zapata MD [address] [place] [address] 01/27/2025 8:00 AM EDT Office Visit Family Practice [facility] [address] [place] [address] Favian Castellon DO [address] [place] [address] 01/28/2025 1:46 PM EDT Hospital Encounter [facility], Operating Room [facility] [address] [place] [phone] Thom Palomino DO [address] [place] [phone] 01/28/2025 1:46 PM EDT - 01/28/2025 2:12 PM EDT Surgery [facility], Operating Room [facility] [address] [place] [address] [place] [address] Thom Palomino, DO [address] [place] [address] INJECTION TRANSFORAMINAL EPIDURAL LUMBAR OR SACRAL 03/23/2025 8:00 AM EDT Office Visit Pharmacy, [facility] [address] [place] [address] [facility] [address] [place] [address] 03/24/2025 8:40 AM EDT Office Visit Neurology [facility] [address] [facility] [place] [address] Tanya Mcpherson MD [address] [facility] [place] [address] Scheduled Procedures Name Priority Associated Diagnoses Date/Ti [...] this encounter Medical Devices Implanted Type Area Machine Shop Supervisor Device Identifier Shelf Expiration Date Model / Serial / Lot Lens 24.0 Mx60e - [id number] - [id number] Implanted:Qty : 1 on 04/30/2018 by Martin Donnelly MD at OR [facility] Left: Eye [employer] LOMB 01/10/2021 [id number]-18.0 / [id number] / [id number] Mx60 +23.0d Implanted:Qty : 1 on 05/12/2018 by Martin Donnelly MD at OR [facility] Right: Eye 07/12/2020 FN8408.0 / [id number] / [id number] Duraclip 16mm Xlg Repostn - [id number] Implanted:Qty : 2 on 08/23/2022 by Sudhakar Martell MD at [facility] CONMED JESSICA 11/28/2023 [id number] / / Port Implant W/8f Poly Cath - [id number] Implanted:Qty : 1 on 09/18/2023 by Marty Quispe Jr., MD at OR [facility] BARD : PERIPHERAL VASCULAR [id number] 03/12/2025 [id number] / / [id number] documented as of this encounter Procedures Procedure [...] study not interpreted or resulted by a [facility] or [facility] contracted radiologist. us Prosper Jeronimo DO RAD CT Final Result documented in this encounter [...] and were consensually agreed upon. Care Teams Boot And Shoe Repairman Relationship Specialty Start Date End Date Favian Castellon DO [address] [place] [address] PCP - General Family Medicine 10/21/24 documented as of this encounter
--- OUTSIDE RECORDS SUMMARY | 2025-01-19 18:34 | External Medical Summary | Summary of Care ---
Author Name Unknown Organization [facility] Address [address] [facility] [place] [address] Phone [phone] Care Team Providers Care Hop Picker Name Role Phone Favian Castellon Primary Care Provider Reason for Visit * Reason Onset Date Comments Appointment 12/29/2024 Rad Onc Encounter Details Date Type Department Care Team (Late st Contact Info) Description 12/29/2024 Telephone Hematology/Oncology [facility] [place] [address] [place] [phone] Eleuterio Zapata MD [address] [facility] [place] [address] Appointment (Rad Onc) Allergies No known active [...] on 10/21/2024 Vitamin D (Ergocalciferol) 1.25 MG (00718 UT) Oral Capsule (Drisdol) Take 1 capsule [...] yrs 06/29/2015,01/19/2015,01/19 Pneumococcal Conjugate Vacci ne, 20-valent ([id number]) 06/27/2022 Pneumococcal Polysaccharide PPV23 (Pneumovax) 02/10/2007 Seasonal [...] 12/31/2024 8:46 AM EDT Patient admitted in [place]. Radiology: can you please push MRI images from 12/30/24 to [facility]? Thanks! * Telephone Encounter - Tonny Rojas RN - 12/29/2024 4:53 PM EDT Sent TT to [facility] Rad Onc to see if patient can be seen for follow up prior to office visit with Dr. Zapata on 01/12. She is having Brain MRI completed tomorrow, will need to push images to [facility] system for them to review as well. documented in this encounter Plan of Treatment Upcoming Encounters Date Type Department Care Team (Latest Contact Info) Description 01/12/2025 2:00 PM EDT Office Visit Hematology/Oncolog y [facility] [address] [place], [place] [address] Eleuterio Zapata MD [address] [facility] [place] [address] 01/27/2025 8:00 AM EDT Office Visit Family Practice [facility] [address] [place] [address] Favian Castellon, DO [address] [place] [address] 01/28/2025 1:46 PM EDT Hospital Encounter [facility], Operating Room [facility] [address] [place] [phone] Thom Palomino, DO [address] [place] [phone] 01/28/2025 1:46 PM EDT - 01/28/2025 2:12 PM EDT Surgery [facility], Operating Room [facility] [address] [place] [phone] Thom Palomino, DO [address] [place] [phone] INJECTION TRANSFORAMINAL EPIDURAL LUMBAR OR SACRAL 03/23/2025 8:00 AM EDT Office Visit Pharmacy, [facility] [address] [place] [address] [facility] [address] [place] [address] 03/24/2025 8:40 AM EDT Office Visit Neurology [facility] [address] [place] [address] Tanya Mcpherson MD [address] [facility] [place] [address] Scheduled Procedures Name Priority Associated Diagnoses Date/Ti [...] this encounter Medical Devices Implanted Type Area Lending Activities Supervisor Device Identifier Shelf Expiration Date Model / Serial / Lot Lens 24.0 Mx60e - [id number] - [id number] Implanted:Qty : 1 on 04/30/2018 by Martin Donnelly MD at OR [facility] Left: Eye BA[employer]CH [employer] LOMB 01/10/2021 [id number]-75.0 / [id number] / [id number] Mx60 +23.0d Implanted:Qty : 1 on 05/12/2018 by Martin Donnelly MD at OR [facility] Right: Eye 07/12/2020 GZ3115.0 / [id number] / [id number] Duraclip 16mm Xlg Repostn - [id number] Implanted:Qty : 2 on 08/23/2022 by Sudhakar Martell MD at ENDOSCOPY [facility] CONMED JESSICA 11/28/2023 [id number] / / Port Implant W/8f Poly Cath - [id number] Implanted:Qty : 1 on 09/18/2023 by Marty Quispe Jr., MD at OR [facility] BARD : PERIPHERAL VASCULAR [id number] 03/12/2025 [id number] / / [id number] documented as of this encounter Advance Directives [...] and were consensually agreed upon. Care Teams Hop Picker Relationship Specialty Start Date End Date Favian Castellon DO [address] [place] [address] PCP - General Family Medicine 10/21/24 documented as of this encounter
--- OUTSIDE RECORDS SUMMARY | 2025-01-19 18:34 | External Medical Summary ---
Author Name Unknown Address Unknown Organization : Laboratory Report Ordering Provider Test Date Status FATUMA ARMSTRONG 12/31/2024 11:54:10 Final Observation Date Value Abnormality Reference (Units ) Status Glucose Point of Care 12/31/2024 11:54:10 269 Above high normal 70-120 (mg/dL) Final Performing Location
--- NOTE | 2025-01-19 18:35 | History & Physical Report ---
Date of Service January 19, 2025 Assessment & Plan (1) Intractable back pain: (2) Nausea & vomiting: (3) Metastasis to spinal column: (4) Breast cancer metastasized to brain: Plan: Patient is 69 year old female with PMH HTN, DM II, hypothyroidism, breast cancer in 2022 s/p bilateral mastectomy, recently diagnosed metastasis to spine, pelvis, liver, spleen, lungs, brain presented to ER with c/o N/V/D x 2 days. Recently diagnosed with metastatic cancer in 12/2024 after developed seizure and was found to have brain metastasis. Continue Keppra, dexamethasone, PPI Continue home oral morphine. (Recently oxycodone changed to morphine for attempt at further pain control). Add Dilaudid IV as needed breakthrough pain. Scheduled Tylenol, lidocaine patch Memantine started by radiation oncology and is currently being uptitrated. Currently on week 2 dose. Receiving radiation oncology with Dr Ly at [facility]. Will consult to determine further radiation recommendations Following with oncology, Dr Zapata. Recently saw [facility] palliative care #N/V/D During ER course patient reports improvement in symptoms and sipping on fluids and tolerating. No further diarrhea. Denies abdominal pain currently. IVF Liquid diet for now, plan to advance as patient tolerates Hold home laxative and monitor for further diarrhea Stool culture pending if would develop ongoing diarrhea (5) Hypertension: Plan: Continue atenolol Hold losartan, HCTZ (6) Diabetes type 2, uncontrolled: Plan: Insulin dependent A1c: 7.1 on 12/30/24 Currently decreased oral intake and liquid diet. Hold home insulin Novolog sliding scale per protocol and monitor. May need to further adjust as diet expands (7) Dyslipidemia: Plan: Continue atorvastatin (8) Hypothyroidism: Plan: Continue levothyroxine DVT Prophylaxis Lovenox SQ Admit telemetry Full Code as per discussion with pt. Wants to be full code for now, until further workup and recommendations by oncology Follows with Dr Castellon for routine care Pt was seen and care coordinated with Dr Hebert. See addendum I spent a total of 65 minutes reviewing notes, outpatient records, labs, medication, coordinating, documenting and providing care for this patient excluding time spent in the performance of separately billed services and excluding time spent by another provider/QHP. History of Present Illness Chief Complaint: N/V/D Primary Care Provider: Favian Castellon DO Patient is 69 year old female with PMH HTN, DM II, hypothyroidism, breast cancer in 2022 s/p bilateral mastectomy, recently diagnosed metastasis to spine, pelvis, liver, spleen, lungs, brain presented to ER with c/o N/V/D x 2 days. Recently diagnosed with metastatic cancer in 12/2024 after developed seizure and was found to have brain metastasis. Today was to have radiation to brain, however presented to radiation oncology clinic today with above symptoms so referred to ER. Reports Nausea, vomiting, diarrhea x 2 days. Denies hematemesis, hematochezia, melena. Not eating or drinking well past 3 days. Not taking medications past couple of days. Was taking sennosides twice daily since being on morphine. Was on oxycodone previously however last week was changed to oral morphine secondary to uncontrolled pain. Having ongoing back pain and abdominal pain. Denies any abdominal pain today. Receiving radiation oncology with Dr Ly at [facility]. Recently saw [facility]. Following with oncology, Dr Zapata. Family reports patient awaiting liver biopsy to determine further course with possible chemo. Family report over past several weeks since the seizure and diagnosis of brain mets patient having increased confusion, forgetfulness. States have seen progressive decline in functional status and now unable to walk and unable to feed herself. Family is hoping to get more assistance at home with wheelchair, possible hospital bed. Patient currently reports is aware of her current diagnosis but every thing just diagnosed so recently is trying to come to terms with diagnosis and figure out next steps. Currently wants to continue investigation and probable ongoing treatment. Is currently on Keppra and denies recurrent seizure. Denies fever/chills, cough, sore throat, CP, syncope, CP, SOB, orthopnea, palpitations, extremity edema, rashes, urinary symptoms. Allergies Allergy/AdvReac Type Severity Reaction Status Date / Time No Known Allergies Allergy Verified 01/03/25 09:48 Home Medications Medication Instructions Recorded Confirmed Type acetone (urine) test (Ketostix #25 ea 05/11/19 01/10/25 History strips) atorvastatin 80 mg tablet 80 mg PO PM 05/11/19 01/19/25 History ergocalciferol (vitamin D2) 1,250 50,000 units PO WEEKLY #14 caps 05/11/19 01/19/25 History mcg (50,000 unit) capsule insulin aspart U-100 100 unit/mL 5 - 25 units subcut UD 05/11/19 01/19/25 History (3 mL) subcutaneous pen (Novolog FlexPen U-100 Insulin aspart) lancets 33 gauge (OneTouch Delica #100 ea 05/11/19 01/10/25 History Lancets) levothyroxine 100 mcg tablet 100 mcg PO QAM 05/11/19 01/19/25 History pen needle, diabetic 32 gauge x #10 ea 05/11/19 01/10/25 History 5/32" (BD Ultra-Fine [place]ala Pen Needle) blood sugar diagnostic (FreeStyle #6 Boxes 05/21/19 01/10/25 Rx Precision Humza Strips) aspirin 81 mg tablet,delayed 81 mg PO QAM 08/07/19 01/19/25 History release (Karrie Low Dose Aspirin) FreeStyle Adán 14 Day [place] #1 ea 02/17/20 01/10/25 Rx (flash glucose scanning reader) FreeStyle Adán 14 Day Sensor #7 ea 02/17/20 01/10/25 Rx (flash glucose sensor) atenolol 25 mg tablet 25 mg PO QAM 08/08/23 01/19/25 History losartan 100 1 tab PO PM 08/08/23 01/19/25 History mg-hydrochlorothiazide 25 mg tablet urea 20 % topical cream 1 applic topical BID PRN Other 02/24/24 01/19/25 History insulin glargine 100 unit/mL 30 unit subcut HS 01/03/25 01/19/25 History subcutaneous solution (Lantus U-100 Insulin) dexamethasone 4 mg tablet 4 mg PO Q12H #30 tabs 01/17/25 01/19/25 Rx acetaminophen 500 mg tablet 1,000 mg PO Q8H PRN Pain 01/19/25 01/19/25 History levetiracetam 500 mg tablet 500 mg PO BID 01/19/25 01/19/25 History memantine 5 mg tablet 5 mg PO UD Memory 01/19/25 01/19/25 History morphine 15 mg immediate release 15 mg PO Q4H PRN Pain 01/19/25 01/19/25 History tablet omeprazole 20 mg capsule,delayed 20 mg PO DAILY 01/19/25 01/19/25 History release sennosides 8.6 mg tablet 8.6 mg PO BID 01/19/25 01/19/25 History tirzepatide 12.5 mg/0.5 mL 12.5 mg subcut WK 01/19/25 01/19/25 History subcutaneous pen injector ([place]) Past Med/Surg History Problem List Metastasis to spinal column (Acute) Intractable back pain (Acute) Diarrhea (Acute) Nausea & vomiting (Acute) Acute dehydration (Acute) Breast cancer metastasized to brain (Acute 12/30/24) Malignant neoplasm of upper-outer quadrant of left breast in female, estrogen receptor negative (Chronic 06/24/23) Cancer of left breast Tremor pt saw neuro 08/2023. tremor is mild; b/l hands and head. per neuro, 'mild and would not treat at this time'; plan to do further testing after breast surgery 2/2 FH of Parkinsons Lumbar radiculopathy receives injections Lower extremity edema mild; takes lasix PRN Obesity Diabetes (Chronic) Hypertension (Chronic) Dyslipidemia Hypothyroidism Diabetes type 2, uncontrolled 06/24/23 Ha1c: 8.2% Medical History Port-A-Cath in place (09/18/23) Kevin's palsy hx 2017 > no further problems Breast cancer dx jul 01 20[facility] > left breast Anxiety hx of > none at present History of COVID-2021; resolved Hypertension Surgical History History of bilateral mastectomy (08/18/23) Bilateral Mastectomies with Left Axillary [place] Lymph Node Biopsy(Bilateral) Dr. Robi Geiger History of dilatation and curettage History of breast biopsy (06/24/23) Left History of colonoscopy History of tooth extraction History of cataract surgery bilat History of tonsillectomy Hx of laparoscopic gastric banding Family History Mother , Passed Age 90 Breast cancer, Onset Age: 75 Lumpectomy and RT Father No problems noted. Brother No problems noted. Brother No problems noted. Brother No problems noted. Sister No problems noted. Sister No problems noted. Son No problems noted. 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 [employer] How many Children do You have: 1 Feels Safe at Home: Yes Childhood Exposure to Second-Hand Smoke: No Diet: regular caffeine: Yes during the past year weight has: remained stable Dental Care, Regularly: Yes Assistive Devices: None Review of Systems Review of Systems: All systems reviewed & are unremarkable except as noted in HPI & below Physical Exam Physical Exam: PE per Dr Hebert Results & Data Results & Data Vital Signs (Past 12 Hours) Vital Signs Temp Pulse Pulse Resp BP BP Pulse Ox 01/19/25 17:00 97 H 20 146/81 H 96 01/19/25 16:27 100 H 01/19/25 15:07 95 H 18 127/80 96 01/19/25 14:00 94 H 16 149/108 H 98 01/19/25 12:28 90 18 126/79 96 01/19/25 12:18 91 H 01/19/25 11:40 36.5 C 99 H 20 118/77 95 O2 Del Method 01/19/25 17:00 Room Air 01/19/25 16:27 01/19/25 15:07 Room Air 01/19/25 14:00 Room Air 01/19/25 12:28 Room Air 01/19/25 12:18 01/19/25 11:40 Room Air Laboratory Results Short CBC 01/19/25 Range/Units 13:15 WBC 6.36 (4.8-10.8) K/ul Hgb 12.1 (12.0-16.0) g/dl Hct 37.5 (37.0-47.0) % Plt Count 223 (130-400) K/uL BMP 01/19/25 13:15 Sodium 137 Potassium 4.1 Chloride 99 Carbon Dioxide 30 BUN 15 Creatinine 0.80 Glucose 123 H Calcium 9.6 Liver Function 01/19/25 Range/Units 13:15 Total Bilirubin 0.5 (0.2-1.0) mg/dl AST 47 H (13-39) U/L ALT 62 H (7-52) U/L Alkaline Phosphatase 211 H (34-104) U/L Albumin 3.8 (3.4-5.0) gm/dl Urine 01/19/25 Range/Units 14:40 Urine Color Dark Yellow Urine Appearance Clear (Clear) Urine pH 5.0 (4.5-7.5) Ur Specific [place] 1.025 (1.000-1.030) Urine Protein Trace H (Negative) Urine Glucose (UA) Negative (Negative) Supervising Physician Co-Signing Physician Notes 69-year-old lady with PMH of T2DM, HLD, HTN, esophageal dysphagia, triple negative left breast cancer status post bilateral mastectomy 08/18/2023 was sent in from the radiation office today due to concerns of dehydration given patient was not eating or taking medications since last 3 days ago [employer]AFER C[employer]TER and has been having vomiting and diarrhea since last 2 days ago WAFER CUTTER per family member. Patient denies any sore throat/fever/cough/chest pain. Patient reports some back pain, reports overall pain better control at bedside exam. After the surgery patient was deemed to be in remission until about 4 weeks ago when she noted subcutaneous nodules and had PET scan on 12/29/2024 which showed metastatic disease to brain, lung, liver, bone, nodes, subcutaneous tissue. She also had an episode of status epilepticus about 3 weeks ago [employer]AF[employer] CUTTER after which MRI brain was done which revealed multiple brain metastasis to the bilateral cerebral and cerebellar hemisphere. She was started on Keppra and was evaluated by neurosurgical team. Full code. Labs fairly WNL, tachycardic at the exam. Continue with IV hydration, nausea and pain control, bowel regimen, consult radiation oncology. Lovenox sc. on Exam GENERAL: Alert and oriented x3. NAD, on RA. Head tremor. Appears sick/weak/frail. HEENT: No pallor, no icterus. Pupils equal, round and reactive to light. Oral mucosa moist. NECK: No JVD, no neck masses. HEART: S1 and S2 heard. Regular rate and rhythm. No murmur, no gallop. RESPIRATORY SYSTEM: Normal AP diameter. No accessory muscle use. No wheezing, no crackles. ABDOMEN: Soft, bowel sounds present, nontender, no distention. CENTRAL NERVOUS SYSTEM: No facial droop. Speech is clear. Obeys simple commands. Moves extremities. EXTREMITIES: No edema, no erythema seen. I have seen and examined the patient and have discussed the case with the provider above. I agree with the assessment and plan as stated. Time spent: 35 min. (4) Breast cancer metastasized to brain Laterality: left Qualified Code(s): C50.912 - Malignant neoplasm of unspecified site of left female breast; C79.31 - Secondary malignant neoplasm of brain (5) Hypertension Hypertension type: primary hypertension Qualified Code(s): I10 - Essential (primary) hypertension (6) Diabetes type 2, uncontrolled Glycemic state: with hyperglycemia Qualified Code(s): E11.65 - Type 2 diabetes mellitus with hyperglycemia (8) Hypothyroidism Hypothyroidism type: unspecified Qualified Code(s): E03.9 - Hypothyroidism, unspecified
--- OUTSIDE RECORDS SUMMARY | 2025-01-19 18:35 | External Medical Summary | Summary of Care ---
Author Name Unknown Organization [facility] Address [address] [facility] [place] [address] Phone [phone] Care Team Providers Care Stallion Keeper Name Role Phone Favian Castellon DO Primary Care Provider Reason for Referral * Precert (Within 10 days (routine)) - Authorized Specialty Diagnoses / Procedures Referred By Contac t Referred To Contact Radiology Diagnoses Breast carcinoma, female, left (HCC) Procedures PET CT SKULL BASE TO MID-THIGH FDG Eleuterio Zapata MD [address] [place] [address] Phone: tel: fax: Referral ID Status Reason Start Date Expiration Date V isits Requested Visits Authorized [id number] Authorized Precert 12/21/2024 02/19/2025 999 999 Reason for Visit * Precert (Within 10 days (routine)) - Authorized Specialty Diagnoses / Procedures Referred By Contac t Referred To Contact Radiology Diagnoses Breast carcinoma, female, left (HCC) Procedures PET CT SKULL BASE TO MID-THIGH FDG Eleuterio Zapata MD [address] [place] [address] Phone: tel: fax: Referral ID Status Reason Start Date Expiration Date V isits Requested Visits Authorized [id number] Authorized Precert 12/21/2024 02/19/2025 999 999 Encounter Details Date Type Department Care Team (Latest Contact Info) Description 12/29/2024 7:42 AM EDT - 12/29/2024 7:43 AM EDT Hospital Encounter PET CT IMAGING, [facility] [address] [place], [place] [id number] Arrived Discharge Disposition: Home - Self Care Allergies No known active allergiesdocumented as of this encounter (statuses as of 12/30/2024) Medications B-D Ultrafine III, 5MM, Pen MISC [...] TEST BLOOD SUGAR 3 Each 03/10/20 24 Suspended NovoLOG FlexPen 100 UNIT/ML [...] on 10/21/2024 Vitamin D (Ergocalciferol) 1.25 MG (10815 UT) Oral Capsule (Drisdol) Take 1 capsule [...] bedtime. 30 mL 5 12/16/19 25 Suspended Hospital, Clinic, or Other Facility Administered Medication Ordered Dose Route Frequency Start Date End Date Status sodium chloride 0.9 % flush/inj 10 mL 10 mL IV PUSH ONCE 12/29/2024 12/29/2024 Ended documented as of this encounter (statuses as of 12/30/2024) Active Problems Problem Noted Date Diagnosed Date Esophageal dysphagia 05/20/2024 Obesity, Class I, BMI [...] as of this encounter (statuses as of 12/30/2024) Resolved Problems Problem Noted Date Diagnosed Date [...] as of this encounter (statuses as of 12/30/2024) Immunizations Name Administration Dates Next Due COVID-19 mRNA, LNP-s, No Pre serve, 2-Dose Series ([employer]) 08/15/2021,01/23/2021,12/29/2020 Hepatitis B, 20+ yrs 06/29/2015,01/19/2015,01/19 Pneumococcal Conjugate Vacci ne, 20-valent ([id number]) 06/27/2022 Pneumococcal Polysaccharide PPV23 (Pneumovax) 02/10/2007 Seasonal [...] Eleuterio Zapata MD [address] [place] [address] 01/27/2025 8:00 AM EDT Office Visit Family Practice [facility] [address] [place] [address] Favian Castellon, DO [address] [place] [address] 01/28/2025 1:46 PM EDT Hospital Encounter [facility] [address] [place] [address] [phone] Thom Palomino, [address] [place] [phone] 01/28/2025 1:46 PM EDT - 01/28/2025 2:12 PM EDT Surgery [facility], Operating Room [facility] [address] [place] [address] [phone] Thom Palomino, DO [address] [place] [phone] INJECTION TRANSFORAMINAL EPIDURAL LUMBAR OR SACRAL 03/23/2025 8:00 AM EDT Office Visit Pharmacy, [facility] [address] [place] [address] [facility] [address] [place] [address] Scheduled Procedures Name Priority Associated Diagnoses Date/Ti [...] 11/13/2024 11/13/2023, , 02/15/2021, Additional history exists DXA Scan 12/18/2024 12/18/2022, 10/02/2018 TSH 01/21/2025 01/22/2024, 12/12, 06/26/2022, Additional history exists Albumin/Creatinine Ratio 02/24/2025 024, 01/07/2023, 06/26/2022, Additional history exists Diabetic Foot Exam 06/29/2025 06/29/2024, 0 05/13/2023, 04/23/2022, Additional history exists HbA1c 07/02/2025 12/30/2024, 03/0 01/2025, 06/23/2024, Additional history exists Colonoscopy 08/23/2025 08/23/2022, 08/13, 07/20/2019, Additional history exists Colorectal Cancer Screening 08/23/2025 GFR 12/30/2025 12/30/2024, 2 , 12/14/2024, Additional history exists Lipid Panel 11/20/2028 11/20/2023, 2 05/2023, 06/26/2022, Additional history exists DTap/Tdap Vaccines (4 - Td or Tdap) 06/03/2034 06/03/2024, 03/16/2019, 12/26/2008 Hepatitis B Vaccine Completed 06/29/2015, 01/19/2015, 01/19/2014 *NEPHROLOGY REFERRAL DUE TO RESISTANT HTN Addressed 04/27/2018 (Not indicated) Overridden with the intention of not completing the topic Pap Smear Discontinued 09/19/2020, 0610/2016, 09/25/2012, Additional history exists Zoster Vaccines Completed 04/23/2022, 10/25/2021 Pneumococcal Vaccine: 50+ Years Completed 06/27/2022, 02/10/2007 VITAMIN D LEVEL ONCE IN A LIFETIME-USE SMARTSET# 59905 Completed 11/20/2023, 02/14/2023, 09/15/2019, Additional history exists Influenza Vaccine (FLU shot) [...] this encounter Medical Devices Implanted Type Area Air Quality Chemist Device Identifier Shelf Expiration Date Model / Serial / Lot Lens 24.0 Mx60e - [id number] - [id number] Implanted:Qty : 1 on 04/30/2018 by Martin Donnelly MD at OR [facility] Left: Eye BAUSCH [employer] LOMB 01/10/2021 [id number]-83.0 / [id number] / [id number] +23.0d Implanted:Qty : 1 on 05/12/2018 by Martin Donnelly MD at OR [facility] Right: Eye 07/12/2020 [id number] / [id number] / [id number] Duraclip 16mm Xlg Repostn - [id number] Implanted:Qty : 2 on 08/23/2022 by Sudhakar Martell MD at [facility] CONMED JESSICA 11/28/2023 [id number] / / Port Implant W/8f Poly Cath - [id number] Implanted:Qty : 1 on 09/18/2023 by Marty Quispe Jr., MD at OR [facility] BARD : PERIPHERAL VASCULAR [id number] 03/12/2025 [id number] / / [id number] documented as of this encounter Procedures Procedure Name Priority Date/Time Associated Diagnosis Comments PET CT SKULL BASE TO MID-THIGH Routine 12/29/2024 9:35 AM EDT Breast carcinoma, female, left (HCC) GLUCOSE METER, POINT OF CARE KEVIN 12/29/2024 8:02 AM EDT documented in this encounter Results * PET CT SKULL BASE TO MID-THIGH FDG (12/29/2024 9:35 AM EDT) Anatomical Region Laterality Modality Body, Chest, Abdomen, Pelvis Pos itron Emission Tomography (PET) 12/29/2024 4:21 PM EDT Impressions 12/29/2024 4:19 PM EDT IMPRESSION Widely disseminated disease, including brain, lung, liver, bone, hiro, and subcutaneous metastases. Added to the [facility] result communication system on 12/29/2024 at 16:17. Narrative 12/29/2024 4:19 PM EDT EXAM PET CT SKULL BASE TO MID-THIGH FDG - 12/29/2024 9:35 am HISTORY h/o breast ca with new nodules on right shoulder, neck left side COMPARISON PET-CT dated 09/19/2023 TECHNIQUE PET imaging was performed from the skull base to the mid thighs 58 minutes following the intravenous administration of 10.6 mCi of F-18 fluorodeoxyglucose (FDG). Low-dose CT was performed for anatomic localization and attenuation correction purposes and fused with the PET images on a separate workstation. The patient's glucose level at the time of radiotracer injection was 141 mg/dL. This is a follow up PET/CT for the above indication. FINDINGS Maximum blood pool SUV: 2.4 Maximum hepatic SUV: 3.1 HEAD/NECK: Hypermetabolic mass in the left parietal lobe, measuring approximately 2.4 x 1.7 cm with 10.4 SUV, though incompletely visualized. Surrounding vasogenic edema. No metabolically active cervical lymphadenopathy. CHEST: Bilateral mastectomies without focal uptake. Hypermetabolic right axillary node, measuring 1.3 x 0.9 cm with 4.5 SUV. Numerous hypermetabolic pulmonary nodules. A reference nodule in the left lower lobe measures 1.7 x 1.6 cm with 4.4 SUV. Hypermetabolic mediastinal and bilateral hilar lymphadenopathy. A reference subcarinal node measures 1.5 x 2.4 cm with 12.7 SUV. ABDOMEN/PELVIS: Numerous hypermetabolic hepatic hypodensities. Reference lesion in the left lobe measures 3.8 x 3.9 cm with 13.4 SUV. Few hypermetabolic retroperitoneal and mesenteric lymph nodes. A reference aortocaval node measures 1.0 x 1.8 cm with 12.1 SUV. Physiologic activity is present within the gastrointestinal and genitourinary systems. MUSCULOSKELETAL: Scattered hypermetabolic subcutaneous nodules. Reference lesions include: - Left neck overlying the proximal left SCM, measuring 0.8 cm with 3.9 SUV. - Overlying the right scapula, measuring 1.3 x 1.5 cm with 10.4 SUV. Numerous hypermetabolic foci throughout the axial and proximal appendicular skeleton. Reference lesions include: - Right proximal humerus, 10.8 SUV - T10 vertebral body, 7.7 SUV - Right ilium, 8.[address] FINDINGS: Lines/Devices: None. Head/Neck: Atherosclerosis. Chest: Mitral annular calcifications. Atherosclerosis. Abdomen/Pelvis: Cholelithiasis. Few colonic diverticula. Few dystrophic calcifications associated with the pocket from the removed gastric band reservoir. Musculoskeletal/Other: Degenerative osseous changes. Procedure Note Jag Hall DO - 12/29/[address] SKULL BASE TO MID-THIGH FDG - 12/29/2024 9:35 am HISTORY h/o breast ca with new nodules on right shoulder, neck left side COMPARISON PET-CT dated 09/19/2023 TECHNIQUE PET imaging was performed from the skull base to the mid thighs 58 minutesfollowing the intravenous administration of 10.6 mCi of F-18fluorodeoxyglucose (FDG). Low- dose CT was performed for anatomiclocalization and attenuation correction purposes and fused with the PETimages on a separate workstation. The patient's glucose level at the timeof radiotracer injection was 141 mg/dL. This is a follow up PET/CT for theabove indication. FINDINGS Maximum blood pool SUV: 2.4 Maximum hepatic SUV: 3.1 HEAD/NECK: Hypermetabolic mass in the left parietal lobe, measuring approximately 2.4x 1.7 cm with 10.4 SUV, though incompletely visualized. Surroundingvasogenic edema. No metabolically active cervical lymphadenopathy. CHEST: Bilateral mastectomies without focal uptake. Hypermetabolic right axillary node, measuring 1.3 x 0.9 cm with 4.5 SUV. Numerous hypermetabolic pulmonary nodules. A reference nodule in the leftlower lobe measures 1.7 x 1.6 cm with 4.4 SUV. Hypermetabolic mediastinal and bilateral hilar lymphadenopathy. Areference subcarinal node measures 1.5 x 2.4 cm with 12.7 SUV. ABDOMEN/PELVIS: Numerous hypermetabolic hepatic hypodensities. Reference lesion in theleft lobe measures 3.8 x 3.9 cm with 13.4 SUV. Few hypermetabolic retroperitoneal and mesenteric lymph nodes. Areference aortocaval node measures 1.0 x 1.8 cm with 12.1 SUV. Physiologic activity is present within the gastrointestinal andgenitourinary systems. MUSCULOSKELETAL: Scattered hypermetabolic subcutaneous nodules. Reference lesionsinclude: - Left neck overlying the proximal left SCM, measuring 0.8 cm with 3.9SUV. - Overlying the right scapula, measuring 1.3 x 1.5 cm with 10.4 SUV. Numerous hypermetabolic foci throughout the axial and proximalappendicular skeleton. Reference lesions include: - Right proximal humerus, 10.8 SUV - T10 vertebral body, 7.7 SUV - Right ilium, 8.[address] FINDINGS: Lines/Devices: None. Head/Neck: Atherosclerosis. Chest: Mitral annular calcifications. Atherosclerosis. Abdomen/Pelvis: Cholelithiasis. Few colonic diverticula. Few dystrophiccalcifications associated with the pocket from the removed gastric bandreservoir. Musculoskeletal/Other: Degenerative osseous changes. IMPRESSION IMPRESSION Widely disseminated disease, including brain, lung, liver, bone, hiro,and subcutaneous metastases. Added to the [facility] result communication system on 12/29/2024 at 16:17. us Eleuterio Zapata MD RAD NUCLEAR MED Final Re sult * (ABNORMAL) GLUCOSE METER, POINT OF CARE (12/29/2024 8:02 AM EDT) Glucose - POCT 141(H) 70 - 120 mg/dL 12/29/2024 8:21 AM EDT [facility]ALS[facility] [employer] Blood Whole blood specimen / Unknown 12/29/2024 8:02 AM EDT 12/29/2024 8:21 AM EDT us No Physician Data Unknown LAB POINT OF C ARE TEST DOCKED DEVICE UNSOLICITED RESULTS Final Result [facility] Tangible Play [facility] [address] [place] [address] documented in this encounter Visit Diagnoses Diagnosis Breast carcinoma, female, left (HCC) Lumbar radiculopathy Thoracic or lumbosacral neuritis or radiculitis, unspecified documented in this encounter Administered Medications Inactive Administered Medications - up to 3 most recent administrations Medication Order MAR Action Action Date Dose Rate Site fludeoxyglucose f-18 (Fdg) inj 10.64 millicurie 10.64 millicurie, Intravenous, ONCE, On Fri12/29/24 at 0829, For 1 dose, Radiology Medication Routing (Non-IR) Given 12/29/2024 8:23 AM EDT 10.64 millicuries sodium chloride 0.9 % flush/inj 10 mL 10 mL, IV Push, ONCE, On Fri12/29/24 at 0829, For 1 dose, Do not flush if lock, PICC, or central line not in place; IV infusing or unable to flush., Radiology Medication Routing (Non-IR) Given 12/29/2024 8:23 AM EDT 10 mL documented in this encounter Advance Directives * [...] and were consensually agreed upon. Care Teams Stallion Keeper Relationship Specialty Start Date End Date Favian Castellon DO [address] [address] PCP - General Family Medicine 10/21/24 documented as of this encounter
--- OUTSIDE RECORDS SUMMARY | 2025-01-19 18:35 | External Medical Summary ---
Author Name Unknown Address Unknown Organization : Laboratory Report Ordering Provider Test Date Status FATUMA ARMSTRONG 12/31/2024 06:07:35 Final Observation Date Value Abnormality Reference (Units ) Status Glucose Point of Care 12/31/2024 06:07:35 180 Above high normal 70-120 (mg/dL) Final Performing Location
--- OUTSIDE RECORDS SUMMARY | 2025-01-19 18:35 | External Medical Summary ---
Author Name Unknown Address Unknown Organization K01:[facility] [place] - [address] [place] [address] Laboratory Report Ordering Provider Test Date Status FIDENCIO GONZALEZ 12/30/2024 03:10:00 Final Anticoagulation may affect t esting. Refer to [employer] Test Catalog for a list of effects. Observation Date Value Abnormality Reference (Units ) Status aPTT panel - Platelet poor plasma 12/30/2024 03:10:00 25 21-38 (seconds) Final Performing Location [facility] [place] - [address] [place] [address]
--- OUTSIDE RECORDS SUMMARY | 2025-01-19 18:35 | External Medical Summary | Summary of Care ---
Author Name Unknown Organization [facility] Address [address] [facility] [place] [address] Phone [phone] Care Team Providers Care Pattern Keeper Name Role Phone Favian Castellon Primary Care Provider Reason for Visit * Reason Onset Date Comments Appointment 12/29/2024 Rad Onc Encounter Details Date Type Department Care Team (Late st Contact Info) Description 12/29/2024 Telephone Hematology/Oncology [facility] [place] [address] [place] [phone] Eleuterio Zapata MD [address] [place] [address] Appointment (Rad Onc) Allergies No known active [...] on 10/21/2024 Vitamin D (Ergocalciferol) 1.25 MG (70388 UT) Oral Capsule (Drisdol) Take 1 capsule [...] Breast cancer metastasized to brain, left 2024 Esophageal dysphagia 05/20/2024 Obesity, Class I, BMI [...] mRNA, LNP-s, No Pre serve, 2-Dose Series ([facility]) 08/15/2021,01/23/2021,12/29/2020 Hepatitis B, 20+ yrs 06/29/2015,01/19/2015,01/19 Pneumococcal Conjugate Vacci ne, 20-valent ([id number]) 06/27/2022 Pneumococcal Polysaccharide PPV23 (Pneumovax) 02/10/2007 Seasonal [...] 12/29/2024 4:53 PM EDT Sent TT to [facility] Rad Onc to see if patient can be seen for follow up prior to office visit with Dr. Zapata on 01/12. She is having Brain MRI completed tomorrow, will need to push images to [facility] system for them to review as well. documented in this encounter Plan of Treatment Upcoming Encounters Date Type Department Care Team (Latest Contact Info) Description 12/30/2024 8:45 AM EDT Imaging Radiology [address] [place] [address] 01/12/2025 2:00 PM EDT Office Visit Hematology/Oncolog y [facility] [place] [address] [place] [phone] Eleuterio Zapata MD [address] [place] [address] 01/27/2025 8:00 AM EDT Office Visit Family Practice [facility] [address] [place] [address] Favian Castellon, [address] [address] 01/28/2025 1:46 PM EDT Hospital Encounter [facility], Operating Room [facility] [address] [place] [address] [phone] Thom Palomino, [address] [place] [phone] 01/28/2025 1:46 PM EDT - 01/28/2025 2:12 PM EDT Surgery [facility], Operating Room [facility] [address] [place] [address] [place] [phone] Thom Palomino, DO [address] [place] [phone] INJECTION TRANSFORAMINAL EPIDURAL LUMBAR OR SACRAL 03/23/2025 8:00 AM EDT Office Visit Pharmacy, [facility] [address] [place] [address] [facility] [address] [place] [address] Scheduled Procedures Name Priority Associated Diagnoses Date/Ti [...] 04/23/2022, Additional history exists HbA1c 07/02/2025 12/30/2024, 030 01/2025, 06/23/2024, Additional history exists Colonoscopy 08/23/2025 08/23/2022, 08/13, 07/20/2019, Additional history exists Colorectal Cancer Screening 08/23/2025 GFR 12/30/2025 12/30/2024, 12/12, 12/14/2024, Additional history exists Lipid Panel 11/20/2028 11/20/2023, 12/12, 06/26/2022, Additional [...] D LEVEL ONCE IN A LIFETIME-USE SMARTSET# [id number] Completed 11/20/2023, 02/14/2023, 09/15/2019, Additional history exists [...] this encounter Medical Devices Implanted Type Area Ball Mill Operator Device Identifier Shelf Expiration Date Model / Serial / Lot Lens 24.0 Mx60e - [id number] - [id number] Implanted:Qty : 1 on 04/30/2018 by Martin Donnelly MD at OR [facility] Left: Eye [employer]US[employer] LOMB 01/10/2021 [id number]-74.0 / [id number] / [id number] Mx60 +23.0d Implanted:Qty : 1 on 05/12/2018 by Martin Donnelly MD at OR [facility] Right: Eye 07/12/2020 IA7843.0 / [id number] / [id number] Duraclip 16mm Xlg Repostn - [id number] Implanted:Qty : 2 on 08/23/2022 by Sudhakar Martell MD at [facility] CONMED JESSICA 11/28/2023 [id number] / / Port Implant W/8f Poly Cath - [id number] Implanted:Qty : 1 on 09/18/2023 by Marty Quispe Jr., MD at OR [facility] BARD : PERIPHERAL VASCULAR [id number] 03/12/2025 [id number] / / [id number] documented as of this encounter Advance Directives [...] and were consensually agreed upon. Care Teams Pattern Keeper Relationship Specialty Start Date End Date Favian Castellon DO [address] [place] [address] PCP - General Family Medicine 10/21/24 documented as of this encounter
--- OUTSIDE RECORDS SUMMARY | 2025-01-19 18:35 | External Medical Summary ---
Author Name Unknown Address Unknown Organization K01:[facility] - [address] [place] [address] Laboratory Report Ordering Provider Test Date Status FIDENCIO GONZALEZ 12/30/2024 03:10:00 Final Observation Date Value Abnormality Reference (Units ) Status Phosphate 12/30/2024 03:10:00 3.4 2.5-4.8 (m g/dL) Final Performing Location [facility] - [address] [place] [address]
--- OUTSIDE RECORDS SUMMARY | 2025-01-19 18:35 | External Medical Summary | Summary of Care ---
Author Name Unknown Organization [facility] Address [address] [place] [place] [address] Phone [phone] Care Team Providers Care Croze Machine Operator Name Role Phone Favian Castellon Primary Care Provider Reason for Visit * Reason Onset Date Comments Imaging Records Request 12/30/2024 Encounter Details Date Type Department Care Team (Late st Contact Info) Description 12/30/2024 Telephone Radiology Film File [address] [place] [address] Support, Imaging Radiology [address] [place] [address] Imaging Records Request Allergies No [...] A1c goal of less than 8.0% ([facility]) Inject 5 units under the skin with [...] on 10/21/2024 Vitamin D (Ergocalciferol) 1.25 MG (51534 UT) Oral Capsule (Drisdol) Take 1 capsule [...] mRNA, LNP-s, No Pre serve, 2-Dose Series ([employer]) 08/15/2021,01/23/2021,12/29/2020 Hepatitis B, 20+ yrs 06/29/2015,01/19/2015,01/19 Pneumococcal Conjugate Vacci ne, 20-valent ([id number]) 06/27/2022 Pneumococcal Polysaccharide PPV23 (Pneumovax) 02/10/2007 Seasonal [...] Encounter - Michelle Arias, System Support - 12/30/2024 10:13 AM EDT Sathya Simmons requesting PET CT 12/29/24, CT cap 12/30/24 images be pushed through PACS. [place] Authorization to Release on file. Images pushed to [place] PACS external connection. documented in this encounter Plan of Treatment Upcoming Encounters Date Type Department Care Team (Latest Contact Info) Description 01/12/2025 2:00 PM EDT Office Visit [facility] [address] [place] [phone] Eleuterio Zapata MD [address] [place] [address] 01/27/2025 8:00 AM EDT Office Visit Family Practice [facility] [address] [place] [address] Favian Castellon DO [address] [place] [address] 01/28/2025 1:46 PM EDT Hospital Encounter [facility], Operating Room [facility] [address] [place] [phone] Thom Palomino, [address] [place] [phone] 01/28/2025 1:46 PM EDT - 01/28/2025 2:12 PM EDT Surgery [facility], Operating Room [facility] [address] [place] [phone] Thom Palomino, DO [address] [place] [phone] INJECTION TRANSFORAMINAL EPIDURAL LUMBAR OR SACRAL 03/23/2025 8:00 AM EDT Office Visit Pharmacy, [facility] [address] [place] [address] [facility] 132 [facility] [place] [address] Scheduled Procedures Name Priority Associated Diagnoses Date/Ti [...] D LEVEL ONCE IN A LIFETIME-USE SMARTSET# 81663 Completed 11/20/2023, 02/14/2023, 09/15/2019, Additional history exists [...] this encounter Medical Devices Implanted Type Area Terrazzo Finisher Helper Device Identifier Shelf Expiration Date Model / Serial / Lot Lens 24.0 Mx60e - [id number] - [id number] Implanted:Qty : 1 on 04/30/2018 by Martin Donnelly MD at OR [facility] Left: Eye [employer]CH [employer] LOMB 01/10/2021 [id number]-63.0 / [id number] / [id number] Mx60 +23.0d Implanted:Qty : 1 on 05/12/2018 by Martin Donnelly MD at OR [facility] Right: Eye 07/12/2020 [id number] / [id number] / [id number] Duraclip 16mm Xlg Repostn - [id number] Implanted:Qty : 2 on 08/23/2022 by Sudhakar Martell MD at ENDOSCOPY [facility] CONMED JESSICA 11/28/2023 [id number] / / Port Implant W/8f Poly Cath - [id number] Implanted:Qty : 1 on 09/18/2023 by Marty Quispe Jr., MD at [facility] BARD : PERIPHERAL VASCULAR [id number] 03/12/2025 [id number] / / [id number] documented as of this encounter Advance Directives [...] and were consensually agreed upon. Care Teams Croze Machine Operator Relationship Specialty Start Date End Date Favian Castellon DO [address] [place] [address] PCP - General Family Medicine 10/21/24 documented as of this encounter
--- OUTSIDE RECORDS SUMMARY | 2025-01-19 18:35 | External Medical Summary ---
Author Name Unknown Address Unknown Organization : Laboratory Report Ordering Provider Test Date Status FATUMA ARMSTRONG 12/31/2024 00:24:30 Final Observation Date Value Abnormality Reference (Units ) Status Glucose Point of Care 12/31/2024 00:24:30 273 Above high normal 70-120 (mg/dL) Final Performing Location
--- OUTSIDE RECORDS SUMMARY | 2025-01-19 18:35 | External Medical Summary ---
Author Name Unknown Address Unknown Organization K01:[facility] - [address] [place] [address] Laboratory Report Ordering Provider Test Date Status FIDENCIO GONZALEZ 12/30/2024 05:22:00 Final Observation Date Value Abnormality Reference (Units ) Status Magnesium 12/30/2024 05:22:00 2.0 1.5-2.6 (m g/dL) Final Performing Location [facility] - [address] [place] [address]
--- OUTSIDE RECORDS SUMMARY | 2025-01-19 18:35 | External Medical Summary ---
Author Name Unknown Address Unknown Organization K01:[facility] [address] [place] [address] Laboratory Report Ordering Provider Test Date Status FIDENCIO GONZALEZ 12/30/2024 05:22:00 Final Observation Date Value Abnormality Reference (Units ) Status Phosphate 12/30/2024 05:22:00 3.4 2.5-4.8 (m g/dL) Final Performing Location [facility] - [address] [place] [address]
--- OUTSIDE RECORDS SUMMARY | 2025-01-19 18:35 | External Medical Summary | Summary of Care ---
Author Name Unknown Organization [facility] Address [address] [facility] [place] [address] Phone [phone] Care Team Providers Care Staffing Coordinator Name Role Phone Favian Castellon Primary Care Provider Reason for Referral * Evaluate & Treat - Unlimited Visits (Within 3 days (urgent)) - Authorized Specialty Diagnoses / Procedures Referred By Contamrik t Referred To Contact Radiation Oncology Diagnoses Breast carcinoma, female, right (HCC) Eleuterio Zapata MD [address] [place] [address] Phone: tel: fax: Referral ID Status Reason Start Date Expiration Date Visits Requested Visits Authorized [id number] Authorized Specialty Services Required 12/29/[phone] Question Answer Referral Priority Within 3 days (urgent) Where should this appointment be scheduled? [facility] Comments Breast ca with brain met on PET. MRI will be done 12/30 Encounter Details Date Type Department Care Team (Late st Contact Info) Description 12/29/2024 Orders Only Hematology/Oncology [facility] Fariha Callahan [address] [place] [phone] Eleuterio Zapata MD [address] [place] [address] Breast carcinoma, female, right (HCC)* Allergies No known active allergiesdocumented as of this encounter (statuses as of 12/30/2024) Medications B-D Ultrafine III, 5MM, Pen MISC Use daily with insulin pen 1 Box Dosing Unit 11 02/01/20 16 Active aspirin 81 MG chewable tabletIndications: DM type 2, not at goal ([facility]) Take 1 Tab by mouth daily. with [...] MEDICATIONS 90 Tablet 3 02/24/20 24 Active Miebo 1.338 GM/ML Ophthalmic Solution INSTILL ONE DROP INTO BOTH EYES FOUR TIMES DAILY . BOTTLE PREPARATION IS REQUIRED. REFER TO PACKAGE INSERT FOR SPECIAL PREPARATION AND ADMIN 02/19/20 24 Active Alendronate Sodium 70 MG Oral [...] goal of less than 8.0% ([facility]) Inject 5 units under the skin with breakfast, 15 units at lunch, and 23 units at supper plus CF of 7 units with lunch and dinner if blood sugar >220 max 60 units/day 60 mL 2 03/25/20 24 Active Acetaminophen 500 MG Oral Tablet (Tylenol)Indicatio ns:H/O laparoscopic adjustable gastric banding,Breast carcinoma, female, right ([facility]),Obesity, Class I, BMI 30.0-34.9 (see actual BMI),Type 2 diabetes mellitus with hemoglobin A1c goal of less than 8.0% ([facility]),Esophageal dysphagia,Malignan t neoplasm of overlapping sites of left female breast, unspecified estrogen receptor status ([facility]),HTN, goal below 130/80,Problem with vascular access,Pre-operati ve [...] surgery. 30 Tablet 1 07/13/20 24 Active Additional Information Patient not taking.Reported on 10/21/2024 Vitamin D (Ergocalciferol) 1.25 MG (78305 UT) Oral Capsule (Drisdol) Take 1 capsule by mouth once a week 12 Capsule 08/19/20 24 Active Atenolol 25 MG Oral Tablet (Tenormin)Indicati ons:HTN, goal below 130/80 TAKE 1 TABLET BY MOUTH IN THE MORNING 90 Tablet 3 09/11/20 24 Active Furosemide 20 MG Oral Tablet (Lasix)Indications :Localized edema TAKE 1 TABLET BY MOUTH TWICE DAILY NEEDED FOR FEET SWELLING, FLUID ACCUMULATION OR WEIGHT GAIN 180 Tablet 1 09/11/20 24 Active Mounjaro 12.5 MG/0.5ML Subcutaneous [...] bedtime. 30 mL 5 12/16/19 25 Active dexAMETHasone 4 MG Oral Tablet (Decadron)Indicati ons:Breast carcinoma, female, right (HCC) Take 1 Tablet by mouth in the morning and 1 Tablet before bedtime. 20 Tablet 12/30/19 25 Active documented as of this encounter [...] mRNA, LNP-s, No Pre serve, 2-Dose Series ([employer]) 08/15/2021,01/23/2021,12/29/2020 Hepatitis B, 20+ yrs 06/29/2015,01/19/2015,01/19 Pneumococcal Conjugate Vacci ne, 20-valent ([id number]) 06/27/2022 Pneumococcal Polysaccharide PPV23 (Pneumovax) 02/10/2007 Seasonal [...] have concerns for your saf ety? No 07/12/2024 Do you have concerns for you r family's safety? (Household - for ages 0-17 years) Not on file 07/12/2024 Utilities Answer Date Recorded Do you have trouble paying y our heating, water, or electric bill? Yes 07/12/2024 Is your family able to pay t he heat, water, or electric bill? (Household - for ages 0-17 years) Not on file 07/12/2024 Does your family have access to good internet? (Household - for ages 0-17 years) Not on file 07/12/2024 Employment Status Answer Date Recorded Are you [...] 18 years and over) Not on file 07/12/2024 Does your family have a hard time getting a ride to doctors visits? (Household - for ages 0-17 years) Not on file 07/12/2024 Has lack of transportation k ept you from medical appointments, meetings, work, or from getting things needed for daily living? Check all that apply. No 07/12/2024 Do you (or your family) have trouble finding or paying for a ride (transportation)? (Household - for ages 0-17 years) Not on file 07/12/2024 Housing Stability Answer Date Recorded Do you currently live in a s helter or have no steady place to sleep at night? No 07/12/2024 Do you think you are at risk of becoming homeless? (Adult - for ages 18 years and over) Not on file 07/12/2024 Does your family worry about paying for your home or becoming homeless? (Household - for ages 0-17 years) Not on file 0 07/12/2024 Are you homeless or worried that you might be in the future? No 07/12/2024 Are you (or your family) brianda eless [...] need food for this week? No 07/12/2024 Comments No Sex and Gender Information Value [...] as of this encounter Progress Notes * Eleuterio Zapata MD - 12/29/2024 4:44 PM EDT Patient had PET scan done today and it revealed widely metastatic disease including brain, lung, liver, bone hiro and subcutaneous metastasis. Discussed with the patient on the phone about the PET scan finding. She is scheduled for the MRI brain tomorrow. I am sending the prescription for Decadron 4 mg twice a day. I am also referring the patient for radiation. She has follow- up appointment with me on 01/12/2025 documented in this encounter Plan of Treatment Upcoming Encounters Date Type Department Care Team (Latest Contact Info) Description 12/30/2024 8:45 AM EDT Imaging Radiology [address] [place] [address] 01/12/2025 2:00 PM EDT Office Visit Hematology/Oncolog y [facility] [address] [place] [phone] Eleuterio Zapata MD [address] [place] [address] 01/27/2025 8:00 AM EDT Office Visit Family Practice [facility] [address] [place] [address] Favian Castellon, DO [address] [place] [address] 01/28/2025 1:46 PM EDT Hospital Encounter [facility] [address] [place] [phone] Thom Palomino, DO [address] [place] [phone] 01/28/2025 1:46 PM EDT - 01/28/2025 2:12 PM EDT Surgery [facility] [address] [place] [phone] Thom Palomino, DO [address] [place] [phone] INJECTION TRANSFORAMINAL EPIDURAL LUMBAR OR SACRAL 03/23/2025 8:00 AM EDT Office Visit Pharmacy, [facility] [address] [place] [address] [facility] [address] [place] [address] Scheduled Procedures Name Priority Associated Diagnoses Date/Ti me INJECTION TRANSFORAMINAL EPIDURAL LUMBAR OR SACRAL Lumbar radiculopathy 01/28/2025 1:46 PM EDT COLONOSCOPY FLEXIBLE PROXIMAL DIAGNOSTIC Recall History of colon polyps Scheduled Referrals Name Type Priority Associated Diagnoses Orde r Schedule RADIATION/ONCOLOGY REFERRAL OP Referral Within 3 days (urgent) Breast carcinoma, female, right (HCC) Ordered: 12/29/2024 Health Maintenance Due Date Last Done Comments Cologuard 2002 Fecal Occult Blood Test 2002 Sigmoidoscopy 2002 Depression Monitoring 10/29/2023 10/29/2022 COVID-19 Vaccine ( season) 2024 08/15/2021, 01/23/2021, 12/29/2020 Diabetic Eye Exam 11/13/2024 11/13/2023, , 02/15/2021, Additional history exists DXA Scan 12/18/2024 12/18/2022, 10/02/2018 TSH 01/21/2025 01/22/2024, 12/12, 06/26/2022, Additional history exists Albumin/Creatinine Ratio 02/24/2025 024, 01/07/2023, 06/26/2022, Additional history exists HbA1c 06/16/2025 12/14/2024, 06/13, 04/29/2024, Additional history exists Diabetic Foot Exam 06/29/2025 06/29/2024, 0 05/13/2023, 04/23/2022, Additional history exists Colonoscopy 08/23/2025 08/23/2022, 08/13, 07/20/2019, Additional history exists Colorectal Cancer Screening 08/23/2025 GFR 12/14/2025 12/14/2024, 09/12, 07/13/2024, Additional history exists Lipid Panel 11/20/2028 11/20/2023, [...] D LEVEL ONCE IN A LIFETIME-USE SMARTSET# [id number] Completed 11/20/2023, 02/14/2023, 09/15/2019, Additional history exists [...] this encounter Medical Devices Implanted Type Area Seed Cone Picker Device Identifier Shelf Expiration Date Model / Serial / Lot Lens 24.0 Mx60e - [id number] - [id number] Implanted:Qty : 1 on 04/30/2018 by Martin Donnelly MD at OR [facility] Left: Eye [employer] LOMB 01/10/2021 [id number] / [id number] / [id number] Mx60 +23.0d Implanted:Qty : 1 on 05/12/2018 by Martin Donnelly MD at OR [facility] Right: Eye 07/12/2020 [id number] / [id number] / [id number] Duraclip 16mm Xlg Repostn - [id number] Implanted:Qty : 2 on 08/23/2022 by Sudhakar Martell MD at ENDOSCOPY [facility] CONMED JESSICA 11/28/2023 [id number] / / Port Implant W/8f Poly Cath - [id number] Implanted:Qty : 1 on 09/18/2023 by Marty Quispe Jr., MD at OR [facility] BARD : PERIPHERAL VASCULAR [id number] 03/12/2025 [id number] / / [id number] documented as of this encounter Visit Diagnoses Diagnosis Breast carcinoma, female, right (HCC)- Primary Lumbar radiculopathy Thoracic or lumbosacral neuritis or radiculitis, unspecified documented in this encounter Advance Directives * Full Code (Latest Code Status on File) Date Activated Date Inactivated Comments 08/04/2024 6:08 [...] and were consensually agreed upon. Care Teams Staffing Coordinator Relationship Specialty Start Date End Date Favian Castellon DO [address] [place] [address] PCP - General Family Medicine 10/21/24 documented as of this encounter
--- OUTSIDE RECORDS SUMMARY | 2025-01-19 18:35 | External Medical Summary ---
Author Name Unknown Address Unknown Organization : Laboratory Report Ordering Provider Test Date Status FATUMA ARMSTRONG 12/30/2024 18:12:08 Final Observation Date Value Abnormality Reference (Units ) Status Glucose Point of Care 12/30/2024 18:12:08 254 Above high normal 70-120 (mg/dL) Final Performing Location
--- OUTSIDE RECORDS SUMMARY | 2025-01-19 18:35 | External Medical Summary | Summary of Care ---
Author Name Unknown Organization [facility] Address [address] [facility] [place] [address] Phone [phone] Care Team Providers Care Finish Remover Name Role Phone Favian Castellon DO Primary Care Provider Reason for Visit * Precert (Within 10 days (routine)) - Authorized Specialty Diagnoses / Procedures Referred By Suellen mercer Referred To Contact Radiology Diagnoses Breast carcinoma, female, left (HCC) Procedures PET CT SKULL BASE TO MID-THIGH FDG Eleuterio Zapata MD [address] [place] [address] Phone: tel: fax: Referral ID Status Reason Start Date Expiration Date V isits Requested Visits Authorized [id number] Authorized Precert 12/21/2024 02/19/[phone] Encounter Details Date Type Department Care Team (Latest Contact Info) Description 12/29/2024 7:44 AM EDT - 12/29/2024 11:59 PM EDT Hospital Encounter PET CT IMAGING, [facility] [address], [place] [id number] Arrived Discharge Disposition: Home - Self Care [...] hemoglobin A1c goal of less than 8.0% ([facility]) Inject 5 units under the skin with [...] hemoglobin A1c goal of less than 8.0% ([facility]),Esophageal dysphagia,Maligna nt neoplasm of overlapping sites of [...] on 10/21/2024 Vitamin D (Ergocalciferol) 1.25 MG (67123 UT) Oral Capsule (Drisdol) Take 1 capsule [...] mRNA, LNP-s, No Pre serve, 2-Dose Series ([employer]) 08/15/2021,01/23/2021,12/29/2020 Hepatitis B, 20+ yrs 06/29/2015,01/19/2015,01/19 Pneumococcal Conjugate Vacci ne, 20-valent ([id number]) 06/27/2022 Pneumococcal Polysaccharide PPV23 (Pneumovax) 02/10/2007 Seasonal [...] PM EDT [facility] [address] [place] [phone] Eleuterio Zapata MD [address] [place] [address] 01/27/2025 8:00 AM EDT Office Visit Family Practice [facility] [address] [place] [address] Favian Castellon, DO [address] [place] [address] 01/28/2025 1:46 PM EDT Hospital Encounter [facility], Operating Room [facility] [address] [place], [place] [address] [phone] Thom Palomino, DO [address] [place] [phone] 01/28/2025 1:46 PM EDT - 01/28/2025 2:12 PM EDT Surgery [facility], Operating Room [facility] [address] [place] [phone] Thom Palomino DO [address] [place] [phone] INJECTION TRANSFORAMINAL EPIDURAL LUMBAR OR SACRAL 03/23/2025 8:00 AM EDT Office Visit Pharmacy, [facility] [address] [place] [address] [facility] [address] [place] [address] Scheduled Procedures Name Priority Associated Diagnoses Date/Ti [...] Scan 12/18/2024 12/18/2022, 10/02/2018 TSH 01/21/2025 01/22/2024, 032 05/2023, 06/26/2022, Additional history exists Albumin/Creatinine Ratio 02/24/2025 [...] D LEVEL ONCE IN A LIFETIME-USE SMARTSET# [id number] Completed 11/20/2023, 02/14/2023, 09/15/2019, Additional history exists [...] this encounter Medical Devices Implanted Type Area Shingle Packer Device Identifier Shelf Expiration Date Model / Serial / Lot Lens 24.0 Mx60e - [id number] - [id number] Implanted:Qty : 1 on 04/30/2018 by Martin Donnelly MD at OR [facility] Left: Eye BAUSCH [employer] LOMB 01/10/2021 [id number] / [id number] / [id number] Mx60 +23.0d Implanted:Qty : 1 on 05/12/2018 by Martin Donnelly MD at OR [facility] Right: Eye 07/12/2020 [id number] / [id number] / [id number] Duraclip 16mm Xlg Repostn - [id number] Implanted:Qty : 2 on 08/23/2022 by Sudhakar Martell MD at [facility] CONMED JESSICA 11/28/2023 [id number] / / Port Implant W/8f Poly Cath - [id number] Implanted:Qty : 1 on 09/18/2023 by Marty Quispe Jr., MD at OR [facility] BARD : PERIPHERAL VASCULAR [id number] 03/12/2025 [id number] / / [id number] documented as of this encounter Procedures Procedure Name Priority Date/Time Associated Diagnosis Comments PET CT SKULL BASE TO MID-THIGH Routine 12/29/2024 9:35 AM EDT Breast carcinoma, female, left (HCC) documented in this encounter Results * PET [...] result communication system on 12/29/2024 at 16:17. Eleuterio Zapata MD [facility] NUCLEAR MED Final Re sult documented in this encounter Advance Directives * [...] and were consensually agreed upon. Care Teams Finish Remover Relationship Specialty Start Date End Date Favian Castellon DO [address] [place] [address] PCP - General Family Medicine 10/21/24 documented as of this encounter
--- OUTSIDE RECORDS SUMMARY | 2025-01-19 18:35 | External Medical Summary ---
Author Name Unknown Address Unknown Organization K01:[facility] - [address] [place] [address] Laboratory Report Ordering Provider Test Date Status FIDENCIO GONZALEZ 12/30/2024 03:10:00 Final Warfarin Therapy
INR: 2 .0-3.0 conventional anticoagulation
INR: 2.5- 3.5 high intensity anticoagulation Observation Date Value Abnormality Reference (Units ) Status PT 12/30/2024 03:10:00 12.7 11.6-15.2 (seconds) Final INR 12/30/2024 03:10:00 0.9 0.8-1.2 Final Performing Location LABORATORY C - [address] [place] [address]
--- OUTSIDE RECORDS SUMMARY | 2025-01-19 18:35 | External Medical Summary ---
Author Name Unknown Address Unknown Organization K01:LABORATORY [facility] - [facility] [address] [facility] [address] [place] [place] [address] Laboratory Report Ordering Provider Test Date Status FIDENCIO GONZALEZ 12/31/2024 05:50:00 Final Observation Date Value Abnormality Reference (Units ) Status BUN 12/31/2024 05:50:00 16 6-20 (mg/dL) Final Creatinine 12/31/2024 05:50:00 0.5 0.5-1.0 (mg/dL) Final Glomerular filtration rate/1.73 sq M.predicted [Volume Rate/Area] in Serum, Plasma or Blood by Creatinine-based formula (CKD-EPI) 12/31/2024 05:50:00 >90 >=60 (mL/min) Final eGFR is calculated based on the CKD-EPI 2020 equation. Sodium 12/31/2024 05:50:00 137 135-146 (m mol/L) Final Potassium 12/31/2024 05:50:00 4.9 3.5-5.1 (m mol/L) Final Cl 12/31/2024 05:50:00 101 98-107 (mm ol/L) Final CO2 12/31/2024 05:50:00 20 Below low normal 22- 32 (mmol/L) Final Anion gap 12/31/2024 05:50:00 16 Above high normal 7- 15 (mmol/L) Final Glucose 12/31/2024 05:50:00 202 Above high normal 70 -120 (mg/dL) Final Calcium 12/31/2024 05:50:00 9.4 8.4-10.2 ( mg/dL) Final Performing Location LABORATORY [facility] - [address] [place] [place] [address]
--- OUTSIDE RECORDS SUMMARY | 2025-01-19 18:35 | External Medical Summary ---
Author Name Unknown Address Unknown Organization K01:LABORATORY [address] [address] Laboratory Report Ordering Provider Test Date Status FIDENCIO GONZALEZ 12/31/2024 05:50:00 Final Observation Date Value Abnormality Reference (Units ) Status WBC, Total 12/31/2024 05:50:00 14.58 Above high normal 4.00-10.80 (K/uL) Final RBC 12/31/2024 05:50:00 4.27 3.85-5.15 (M/uL) Final Hemoglobin 12/31/2024 05:50:00 11.7 Below low normal 12.0-15.3 (g/dL) Final HCT 12/31/2024 05:50:00 35.6 Below low normal 36.0-45.2 (%) Final MCV 12/31/2024 05:50:00 83.4 81.5-97.5 (fL) Final MCH 12/31/2024 05:50:00 27.4 27.0-34.0 (pg) Final MCHC 12/31/2024 05:50:00 32.9 32.0-36.0 (g/dL) Final RDW 12/31/2024 05:50:00 14.1 11.5-15.5 (%) Final Platelets 12/31/2024 05:50:00 343 140-400 (K/uL) Final MPV 12/31/2024 05:50:00 9.7 6.6-11.1 (fL) Final Nucleated erythrocytes/100 leukocytes [Ratio] in Blood by Automated count 12/31/2024 05:50:00 0 <=0 (/100 WBCs) Final Performing Location LABORATORY [facility] - [address] [place] [address]
--- OUTSIDE RECORDS SUMMARY | 2025-01-19 18:35 | External Medical Summary ---
Author Name Unknown Address Unknown Organization K01:LABORATORY [facility] - [address] [place] [address] Laboratory Report Ordering Provider Test Date Status FIDENCIO GONZALEZ 12/30/2024 03:11:00 Final Observation Date Value Abnormality Reference (Units ) Status HbA1C 12/30/2024 03:11:00 7.1 Above high normal 4. 0-5.6 (%) Final The use of HbA1c to monitor glycemic status is based on normal hemoglobin and HbA composition. This test should not be used in patients with abnormal hemoglobin that affects the half life of the red blood cell or the in vivo glycation rates. Glucose, estimated average 12/30/2024 03:11:00 157 Above high normal <126 (mg/dL) Bobby murillo Performing Location LABORATORY [facility] [address] [facility] [address]
--- OUTSIDE RECORDS SUMMARY | 2025-01-19 18:35 | External Medical Summary ---
Author Name Unknown Address Unknown Organization : Laboratory Report Ordering Provider Test Date Status FATUMA ARMSTRONG 12/30/2024 11:45:59 Final Observation Date Value Abnormality Reference (Units ) Status Glucose Point of Care 12/30/2024 11:45:59 218 Above high normal 70-120 (mg/dL) Final Performing Location
--- OUTSIDE RECORDS SUMMARY | 2025-01-19 18:35 | External Medical Summary ---
Author Name Unknown Address Unknown Organization K01:[facility] - [address] [place] [address] Laboratory Report Ordering Provider Test Date Status FIDENCIO GONZALEZ 12/31/2024 05:50:00 Final Observation Date Value Abnormality Reference (Units ) Status Magnesium 12/31/2024 05:50:00 2.1 1.5-2.6 (m g/dL) Final Performing Location [facility] - [address] [place] [address]
--- OUTSIDE RECORDS SUMMARY | 2025-01-19 18:35 | External Medical Summary ---
Author Name Unknown Address Unknown Organization : Laboratory Report Ordering Provider Test Date Status OCHOA SAINI 12/30/2024 05:39:11 Final Observation Date Value Abnormality Reference (Units ) Status Glucose Point of Care 12/30/2024 05:39:11 157 Above high normal 70-120 (mg/dL) Final Performing Location
--- OUTSIDE RECORDS SUMMARY | 2025-01-19 18:35 | External Medical Summary | Summary of Care ---
Author Name Unknown Organization [facility] Address [address] [facility] [place] [address] Phone [phone] Care Team Providers Care Station Installation Supervisor Name Role Phone Favian Castellon Primary Care Provider Reason for Visit * Reason Onset Date Comments Seizure Disorder 12/29/2024 Encounter Details Date Type Department Care Team (Late st Contact Info) Description 12/29/2024 Telephone [facility] [place] [address] [place] [address] Amos Sanford MD [address] [place] [address] Seizure Disorder Allergies No known active allergiesdocumented as of [...] on 10/21/2024 Vitamin D (Ergocalciferol) 1.25 MG (61137 UT) Oral Capsule (Drisdol) Take 1 capsule [...] yrs 06/29/2015,01/19/2015,01/19 Pneumococcal Conjugate Vacci ne, 20-valent ([id number]) 06/27/2022 Pneumococcal Polysaccharide PPV23 (Pneumovax) 02/10/2007 Seasonal [...] encounter Miscellaneous Notes * Telephone Encounter - Amos Sanford MD - 12/29/2024 10:31 PM EDT Neurology Telephone Encounter I was called by Dr. Victor located at [facility] on 12/29/2024 at 1030 to discuss Aixa Cruz who presented to their ER with seizures. He reports that she had a seizure after exiting alevism, then had an additional seizure without returning to her normal baseline. He administered 2 mg ativan and 20mg/kg of IV Keppra. She has no prior seizure hx and her head CT revealed a left 2cm x1cm parietal mass with vasogenic edema. He further reports that she is no longer having eye fluttering but is concerned that she is still having "subclinical seizure or non-convulsive status epilepticus." Her documentation reveals "left breast cancer, pathology consistent with complex cystic lesion withthe small detached fragments of adenocarcinoma, ER/SD and HER2 Musa negative. She had clinically stage T2 N0 disease. 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 Patient has pT2 pN1 disease." Today orders placed by hematology/oncology after her PET scan showed widely metastatic disease to the brain, lung, liver, bone and subcutaneous tissues. A prescription was also sent in for decadron 4mg BID. I made the following recommedations: 1) Load with an additional 20 mg/kg of IV Keppra 2) Monitor for continued improvement in neurological status 3) Transfer to [facility] [place] for vEEG and further treatment of NCSE. 4) 10 mg of IV decadron and continue 4 mg q6 hours. 5) Consult in-house neurology, hemeonc, and consider NSGY consult 6) Seizure precautions. If further convulsive seizures are observed repeat 2 mg of IV ativan and ifneeded load with IV fosphenytoin and consider intubation. 7) Obtain MRI brain w/wo contrast Dr. Victor voiced agreement to this plan, ICU Attending was informed and discussed case with transfer center and Dr. Victor. This impression and plan was verbally communicated to the caller. The recommendations provided are based on the information received from the calling provider and donot substitute for a formal neurology consultation including complete examination and history review. If a formal consultation is requested, the patient would need to be transferred to a facility where this could be provided. Total time spent responding to this call, speaking with the outside provider, reviewing images as needed and documenting the above information was 25 minutes. documented in this encounter Plan of Treatment Upcoming Encounters Date Type Department Care Team (Latest Contact Info) Description 12/30/2024 8:45 AM EDT Imaging Radiology [address] [place] [address] 01/12/2025 2:00 PM EDT Office Visit Hematology/Oncolog y [facility] [address] [place] [phone] Eleuterio Zapata MD [address] [place] [address] 01/27/2025 8:00 AM EDT Office Visit [facility] [address] [place] [address] Favian Castellon, DO [address] [place] [address] 01/28/2025 1:46 PM EDT Hospital Encounter [facility], Operating Room [facility] [address] [place] [address] [place] [phone] Thom Palomino, DO [address] [place] [phone] 01/28/2025 1:46 PM EDT - 01/28/2025 2:12 PM EDT Surgery [facility], Operating Room [facility] [address] [place] [address] Thom Palomino DO [address] [place] [phone] INJECTION TRANSFORAMINAL EPIDURAL LUMBAR OR SACRAL 03/23/2025 8:00 AM EDT Office Visit Pharmacy, [facility] [address] [place] [address] [facility] [address] [place] [address] Scheduled Procedures Name Priority Associated Diagnoses Date/Ti [...] D LEVEL ONCE IN A LIFETIME-USE SMARTSET# 44532 Completed 11/20/2023, 02/14/2023, 09/15/2019, Additional history exists [...] this encounter Medical Devices Implanted Type Area Batch And Furnace Operator Device Identifier Shelf Expiration Date Model / Serial / Lot Lens 24.0 Mx60e - [id number] - [id number] Implanted:Qty : 1 on 04/30/2018 by Martin Donnelly MD at OR [facility] Left: Eye [employer]OM[employer] 01/10/2021 [id number]-92.0 / [id number] / [id number] Mx60 +23.0d Implanted:Qty : 1 on 05/12/2018 by Martin Donnelly MD at OR [facility] Right: Eye 07/12/2020 [id number] / [id number] / [id number] Duraclip 16mm Xlg Repostn - [id number] Implanted:Qty : 2 on 08/23/2022 by Sudhakar Martell MD at [facility] [employer]MED JESSICA 11/28/2023 [id number] / / Port Implant W/8f Poly Cath - [id number] Implanted:Qty : 1 on 09/18/2023 by Marty Quispe Jr., MD at [facility] BARD : PERIPHERAL VASCULAR [id number] 03/12/2025 [id number] / / [id number] documented as of this encounter Advance Directives [...] and were consensually agreed upon. Care Teams Station Installation Supervisor Relationship Specialty Start Date End Date Favian Castellon DO [address] [place] [address] PCP - General Family Medicine 10/21/24 documented as of this encounter
--- OUTSIDE RECORDS SUMMARY | 2025-01-19 18:35 | External Medical Summary ---
Author Name Unknown Address Unknown Organization K01:LABORATORY [facility] - [facility] [address] [facility] [address] [place] [address] Laboratory Report Ordering Provider Test Date Status FIDENCIO GONZALEZ 12/30/2024 05:22:00 Final Observation Date Value Abnormality Reference (Units ) Status BUN 12/30/2024 05:22:00 14 6-20 (mg/dL) Final Creatinine 12/30/2024 05:22:00 0.5 0.5-1.0 (mg/dL) Final Glomerular filtration rate/1.73 sq M.predicted [Volume Rate/Area] in Serum, Plasma or Blood by Creatinine-based formula (CKD-EPI) 12/30/2024 05:22:00 >90 >=60 (mL/min) Final eGFR is calculated based on the CKD-EPI 2020 equation. Sodium 12/30/2024 05:22:00 135 135-146 (m mol/L) Final Potassium 12/30/2024 05:22:00 4.5 3.5-5.1 (m mol/L) Final Cl 12/30/2024 05:22:00 101 98-107 (mm ol/L) Final CO2 12/30/2024 05:22:00 21 Below low normal 22- 32 (mmol/L) Final Anion gap 12/30/2024 05:22:00 13 7-15 (mmol /L) Final Glucose 12/30/2024 05:22:00 154 Above high normal 70 -120 (mg/dL) Final Calcium 12/30/2024 05:22:00 9.2 8.4-10.2 ( mg/dL) Final Performing Location LABORATORY [facility] - [address] [place] [address]
--- OUTSIDE RECORDS SUMMARY | 2025-01-19 18:36 | External Medical Summary ---
Author Name Unknown Address Unknown Organization K01:LABORATORY [facility] - [address] [place] [address] Laboratory Report Ordering Provider Test Date Status FIDENCIO GONZALEZ 12/30/2024 03:09:00 Final Observation Date Value Abnormality Reference (Units ) Status Lactic Acid 12/30/2024 03:09:00 1.1 0.4-2.0 (mmol/L) Final Performing Location LABORATORY [facility] - [address] [place] [address]
--- OUTSIDE RECORDS SUMMARY | 2025-01-19 18:36 | External Medical Summary ---
Author Name Unknown Address Unknown Organization K01:LABORATORY [facility] - [address] [place] [address] Laboratory Report Ordering Provider Test Date Status FIDENCIO GONZALEZ 12/30/2024 03:10:00 Final Observation Date Value Abnormality Reference (Units ) Status Magnesium 12/30/2024 03:10:00 2.1 1.5-2.6 (m g/dL) Final Performing Location LABORATORY [facility] - [address] [place] [address]
--- OUTSIDE RECORDS SUMMARY | 2025-01-19 18:36 | External Medical Summary ---
Author Name Unknown Address Unknown Organization K01:[facility] [address] [facility] [address] [facility] [address] Laboratory Report Ordering Provider Test Date Status FIDENCIO GONZALEZ 12/30/2024 03:10:00 Final Observation Date Value Abnormality Reference (Units ) Status WBC, Total 12/30/2024 03:10:00 11.05 Above high normal 4.00-10.80 (K/uL) Final RBC 12/30/2024 03:10:00 4.28 3.85-5.15 (M/uL) Final Hemoglobin 12/30/2024 03:10:00 11.8 Below low normal 12.0-15.3 (g/dL) Final HCT 12/30/2024 03:10:00 37.4 36.0-45.2 (%) Final MCV 12/30/2024 03:10:00 87.4 81.5-97.5 (fL) Final MCH 12/30/2024 03:10:00 27.6 27.0-34.0 (pg) Final MCHC 12/30/2024 03:10:00 31.6 32.0-36.0 (g/dL) Final RDW 12/30/2024 03:10:00 14.3 11.5-15.5 (%) Final Platelets 12/30/2024 03:10:00 299 140-400 (K/uL) Final MPV 12/30/2024 03:10:00 9.4 6.6-11.1 (fL) Final Nucleated erythrocytes/100 leukocytes [Ratio] in Blood by Automated count 12/30/2024 03:10:00 0 <=0 (/100 WBCs) Final Performing Location [facility] [place] [address] [place] [address]
[2025-01-19] MEDS ORDERED: POLYETHYLENE (MIRALAX) 17 GM PACK PO PRN (21:54)
[2025-01-19] MEDS ORDERED: GLUCAGON FOR INJ 1 MG VIAL SQ PRN (21:54)
[2025-01-19] MEDS ORDERED: GLUCOSE 40% GEL 15 GM TUBE PO PRN (21:54)
[2025-01-19] MEDS ORDERED: CARBOHYDRATES FOR HYPOGLYCEMIA PO PRN (21:54)
[2025-01-19] MEDS ORDERED: DEXTROSE 50% 50 ML SYRINGE IV PRN (21:54)
[2025-01-19] MEDS ORDERED: GLUCOSE 10 TAB/TUBE PO PRN (21:54)
[2025-01-19] MEDS: SODIUM CHLORIDE 0.9% 500 ML IV SCH (22:11)
[2025-01-19] MEDS: INSULIN ASPART PER UNIT CHARGE SC SCH (22:20)
[2025-01-19] MEDS: ONDANSETRON INJ 2 MG/ML 2 ML VIAL IV PRN (23:15)
[2025-01-19] MEDS: ACETAMINOPHEN 500 MG TAB PO SCH (23:16)
[2025-01-19] MEDS: ENOXAPARIN INJ 40 MG/0.4 ML SYR SQ SCH (23:17)
[2025-01-19] MEDS: MEMANTINE HCL 5 MG TAB PO SCH (23:18)
[2025-01-19] MEDS: ATENOLOL 25 MG TABLET PO SCH (23:19)
[2025-01-19] MEDS: levETIRAcetam 500 MG TAB PO SCH (23:19)
--- OUTSIDE RECORDS SUMMARY | 2025-01-20 03:03 | External Medical Summary | Summary of Care ---
Author Name Unknown Organization [facility] Address [address] [facility] [place] [address] Phone [phone] Care Team Providers Care Senior Sql Developer Name Role Phone Favian Castellon Primary Care Provider Reason for Visit * Reason Onset Date Comments Outpatient Testing 01/12/2025 PDL1/ MyGenva r Encounter Details Date Type Department Care Team (Late st Contact Info) Description 01/12/2025 Telephone Hematology/Oncology Treatment, [place] [address] [place] [address] Eleuteiro Zapata MD [address] [place] [address] Outpatient Testing (PDL1/ MyGenvar) Allergies No known active allergiesdocumented as of this encounter (statuses as of 01/19/2025) Medications B-D Ultrafine III, 5MM, Pen MISC [...] 24 Active Vitamin D (Ergocalciferol) 1.25 MG (76615 UT) Oral Capsule (Drisdol) Take 1 capsule [...] as of this encounter (statuses as of 01/19/2025) Active Problems Problem Noted Date Diagnosed Date [...] as of this encounter (statuses as of 01/19/2025) Resolved Problems Problem Noted Date Diagnosed Date [...] as of this encounter (statuses as of 01/19/2025) Immunizations Name Administration Dates Next Due COVID-19 mRNA, LNP-s, No Pre serve, 2-Dose Series (Pfizer) 08/15/2021,01/23/2021,12/29/2020 Hepatitis B, 20+ yrs 06/29/2015,01/19/2015,01/19 Pneumococcal Conjugate Vacci ne, 20-valent ([id number]) 06/27/2022 Pneumococcal Polysaccharide PPV23 (Pneumovax) 02/10/2007 Seasonal [...] Telephone Encounter - Sabrina Robles RN - 01/19/2025 10:42 AM EDT Left message #2 for return call. * Telephone Encounter - Sabrina Robles RN [...] to return call to update her that [facility] will not be calling her until next week to schedule. Can offer to get her set up at [facility] for biopsy if she prefers. * Addendum [...] Department Care Team (Latest Contact Info) Description 01/27/2025 8:00 AM EDT Office Visit [facility] [address] [place] [address] Favian Castellon, [address] [place] [address] 01/28/2025 1:28 PM EDT Hospital Encounter [facility], Operating Room [address] [phone] Thom Palomino, [address] [place] [phone] 01/28/2025 1:28 PM EDT - 01/28/2025 1:54 PM EDT Surgery [facility], Operating Room [address] [phone] Thom Palomino, [address] [place] [phone] INJECTION TRANSFORAMINAL EPIDURAL LUMBAR OR SACRAL 01/31/2025 2:30 PM EDT Imaging Radiology [address] [place] [address] 02/02/2025 10:00 AM EDT Office Visit Palliative Medicine [facility] [address] [facility] [place] [phone] Rakel Castillo MD [address] [facility] [address] 02/02/2025 10:30 AM EDT Office Visit Hematology/Oncolog y [facility] [place] [address] [facility] [place] [phone] Eleuterio Zapata MD [address] [facility] [place] [address] 02/07/2025 10:45 AM EDT Office Visit [place]surgery, [place] [address] [place] [address] Clinic, Brain Tumor Mult[facility] [address] [place] [address] 03/23/2025 8:00 AM EDT Office [facility] [address] [facility] [address] [place] [address] 03/24/2025 8:40 AM EDT Office Visit Neurology [facility] [place] [address] [facility] [place] [address] Tanya Mcpherson MD [address] [facility] [place] [address] Scheduled Procedures Name Priority Associated Diagnoses Date/Ti [...] this encounter Medical Devices Implanted Type Area Big Data Admin Device Identifier Shelf Expiration Date Model / Serial / Lot Lens 24.0 Mx60e - [id number] - [id number] Implanted:Qty : 1 on 04/30/2018 by Martin Donnelly MD at OR [facility] Left: Eye BAUSCH 01/10/2021 [id number]-99.0 / [id number] / [id number] Mx60 +23.0d Implanted:Qty : 1 on 05/12/2018 by Martin Donnelly MD at OR [facility] Right: Eye 07/12/2020 [id number] / [id number] / [id number] Duraclip 16mm Xlg Repostn - [id number] Implanted:Qty : 2 on 08/23/2022 by Sudhakar Martell MD at ENDOSCOPY [facility] [employer] JESSICA 11/28/2023 [id number] / / Port Implant W/8f Poly Cath - [id number] Implanted:Qty : 1 on 09/18/2023 by Marty Quispe Jr., MD at OR [facility] BARD : PERIPHERAL VASCULAR [id number] 03/12/2025 [id number] / / [id number] documented as of this encounter Procedures Procedure Name Priority Date/Time Associated Diagnosis Comments ANATOMIC PATHOLOGY (BM/SURGICAL/CYTOLO GY) ADD ON REQUEST Routine 01/12/2025 3:17 PM EDT Breast carcinoma, female, right (HCC) Metastasis to bone (HCC) documented in this encounter Results * ANATOMIC PATHOLOGY (BM/SURGICAL/CYTOLOGY) ADD ON REQUEST (01/12/2025 3:17 PM EDT) 01/12/2025 3:17 PM EDT 01/12/2025 3:17 PM EDT Narrative [facility] [place] 01/18/2025 11:04 AM EDT Testing to be performed in house Eleuterio Zapata MD LAB BLOOD ORDERABLES Fin al Result [facility] [address] [place] [address] documented in this encounter Visit Diagnoses Diagnosis [...] and were consensually agreed upon. Care Teams Senior Sql Developer Relationship Specialty Start Date End Date Favian Castellon DO [address] [place] [address] PCP - General Family Medicine 10/21/24 documented as of this encounter
[2025-01-20] MEDS: LEVOTHYROXINE SODIUM 100 MCG TABLET PO SCH (05:53)
--- NOTE | 2025-01-20 05:59 | Electrocardiogram Report ---
Test Reason : Blood Pressure : */* mmHG Vent. Rate : 93 BPM Atrial Rate : 93 BPM P-R Int : 126 ms QRS Dur : 88 ms QT Int : 366 ms P-R-T Axes : 68 67 69 degrees QTcB Int : 455 ms Normal sinus rhythm Normal ECG When compared with ECG of 29-Dec-2024 20:36, Non-specific change in ST segment in Inferior leads ST no longer depressed in Anterior leads Nonspecific T wave abnormality no longer evident in Inferior leads Confirmed by Yoseph Medina ([id number]) on 01/20/2025 5:59:09 AM Referred By: REFERRED SELF Confirmed By: Yoseph Medina
[2025-01-20 06:49] LABS: Hematocrit (blood only) 31.9 % (37.0-47.0); Hemoglobin 10.3 g/dl (12.0-16.0); Mean Corpuscular Hemoglobin 27.4 pg (25.0-34.0); Mean Corpuscular Hgb Conc 32.3 g/dL (32.0-36.0); Mean Corpuscular Volume 84.8 fL (80.0-100.0); Mean Platelet Volume 9.5 fL (9.4-12.4); Platelet Count 186 K/uL (130-400); RDW Coefficient of Variation 15.3 % (11.5-14.5); RDW Standard Deviation 47.3 fL (36.4-46.3); Red Blood Count 3.76 M/uL (4.20-5.40); White Blood Count 5.04 K/ul (4.8-10.8)
[2025-01-20 07:33] LABS: BUN Creatinine Ratio 22.9 (10-20); Bilirubin,Total 0.4 mg/dl (0.2-1.0); Calcium 8.4 mg/dl (8.6-10.3); Creatinine Clr Calc Pharmacy 95.8 ml/min; Globulin 3.1 gm/dl (2.5-4.0); Potassium 4.4 mmol/L (3.5-5.1); Total Protein 6.1 gm/dl (6.0-8.3)
--- NOTE | 2025-01-20 07:50 | Hospitalist Progress Note ---
Date of Service January 20, 2025 Assessment & Plan (1) Intractable back pain: (2) Nausea & vomiting: (3) Metastasis to spinal column: (4) Breast cancer metastasized to brain: Plan: Patient is 69 year old female with PMH HTN, DM II, hypothyroidism, breast cancer in 2022 s/p bilateral mastectomy, recently diagnosed metastasis to spine, pelvis, liver, spleen, lungs, brain presented to ER with c/o N/V/D x 2 days. Recently diagnosed with metastatic cancer in 12/2024 after developed seizure and was found to have brain metastasis. Continue Keppra, dexamethasone, PPI Continue home oral morphine. (Recently oxycodone changed to morphine for attempt at further pain control). Add Dilaudid IV as needed breakthrough pain. Scheduled Tylenol, lidocaine patch Memantine started by radiation oncology and is currently being uptitrated. Currently on week 2 dose. Receiving radiation oncology with Dr Ly at [facility]. Consulted to determine further radiation recommendations Following with oncology, Dr Zapata. Recently saw [facility] palliative care #N/V/D During ER course patient reports improvement in symptoms and sipping on fluids and tolerating. No further diarrhea. Denies abdominal pain currently. IVF Liquid diet for now, plan to advance as patient tolerates Hold home laxative and monitor for further diarrhea Stool culture ordered if would develop ongoing diarrhea 4/10 Pt had loose stool, but sample not collected No n/v Pt feels much better today and tolerating clear liquid diet (5) Hypertension: Plan: Continue atenolol Hold losartan, HCTZ (6) Diabetes type 2, uncontrolled: Plan: Insulin dependent A1c: 7.1 on 12/30/24 Currently decreased oral intake and liquid diet. Hold home insulin Novolog sliding scale per protocol and monitor. May need to further adjust as diet expands (7) Dyslipidemia: Plan: Continue atorvastatin (8) Hypothyroidism: Plan: Continue levothyroxine DVT Prophylaxis Lovenox SQ Dispo: telemetry Full Code as per discussion with pt. Wants to be full code for now, until further workup and recommendations by oncology Follows with Dr Castellon for routine care Admission and Anticipated Discharge Date Admission Date: January 19, 2025 Subjective Pt seen in follow up admitted d/t n/v/d, hx of metastatic breast ca, sent in to ED from rad onc office Currently sitting up in bed in NAD, reports feeling much better, tolerating clear liquid diet, no n/v She had loose stool - does not seem as sample obtained no fever, chills, chest pain or shortness of breath, no abd. pain Review of Systems Review of Systems: All systems reviewed & are unremarkable except as noted in Subjective Physical Exam Physical Exam: GENERAL: Alert and oriented x3. NAD, on RA. Head tremor. HEENT: NC/AT. Pupils equal, round and reactive to light. Oral mucosa moist. NECK: No JVD, no neck masses. HEART: S1 and S2 heard. Regular rate and rhythm. RESPIRATORY: Normal AP diameter. No accessory muscle use. No wheezing, no crackles. ABDOMEN: Soft, bowel sounds present, nontender, no distention. NEURO: awake, alert, answers appropriately, speech fluent, No facial droop. Speech is clear. Moves extremities. EXTREMITIES: No edema, no erythema seen. Results & Data Results & Data Vital Signs (Past 12 Hours) Vital Signs Temp Pulse Pulse Pulse Resp BP Pulse Ox 01/20/25 07:23 36.4 C L 81 20 121/76 94 01/20/25 02:48 36.4 C L 61 18 125/82 96 01/19/25 21:42 94 H 01/19/25 21:41 01/19/25 21:41 36.9 C 94 H 20 135/83 95 01/19/25 20:45 96 H 20 116/74 94 O2 Del Method 01/20/25 07:23 Room Air 01/20/25 02:48 Room Air 01/19/25 21:42 01/19/25 21:41 Room Air 01/19/25 21:41 Room Air 01/19/25 20:45 Room Air Laboratory Results 01/20/25 01/19/25 01/19/25 Range/Units 06:00 21:59 16:44 WBC 5.04 (4.8-10.8) K/ul RBC 3.76 L (4.20-5.40) M/uL Hgb 10.3 L (12.0-16.0) g/dl Hct 31.9 L (37.0-47.0) % MCV 84.8 (80.0-100.0) fL MCH 27.4 (25.0-34.0) pg MCHC 32.3 (32.0-36.0) g/dL RDW Std Deviation 47.3 H (36.4-46.3) fL RDW Coeff of El 15.3 H (11.5-14.5) % Plt Count 186 (130-400) K/uL MPV 9.5 (9.4-12.4) fL Immature Gran % (Auto) % Neut % (Auto) % Lymph % (Auto) % [place] % (Auto) % Eos % (Auto) % Baso % (Auto) % Neut # (Auto) (1.40-6.50) K/uL Lymph # (Auto) (1.20-3.40) K/uL [place] # (Auto) (0.11-0.59) K/uL Eos # (Auto) (0.00-0.50) K/uL Baso # (Auto) (0.00-0.20) K/uL Immature Gran # (Auto) (0.01-0.20) K/uL PT (9.0-12.0) Seconds INR (0.9-1.1) Sodium 137 (136-145) mmol/L Potassium 4.4 (3.5-5.1) mmol/L Chloride 106 (98-107) mmol/L Carbon Dioxide 27 (21-32) mmol/L Anion Gap 4 (3-11) BUN 11 (6-23) mg/dl Creatinine 0.48 L D (0.6-1.2) mg/dl Est Cr Clr Drug Dosing 95.8 ml/min eGFR 103.75 BUN/Creatinine Ratio 22.9 H (10-20) Glucose 179 H (70-99(Fasting)) mg/dl POC Glucose 121 H (70-99) mg/dl Calcium 8.4 L (8.6-10.3) mg/dl Magnesium (1.7-2.4) mg/dl Total Bilirubin 0.4 (0.2-1.0) mg/dl AST 33 (13-39) U/L ALT 45 (7-52) U/L Alkaline Phosphatase 165 H (34-104) U/L Troponin I High Sens 7.3 (0-14) pg/ml Total Protein 6.1 (6.0-8.3) gm/dl Albumin 3.0 L (3.4-5.0) gm/dl Globulin 3.1 (2.5-4.0) gm/dl Albumin/Globulin Ratio 1.0 (0.9-2) Lipase (11-82) U/L Urine Color Urine Appearance (Clear) Urine pH (4.5-7.5) Ur Specific [place] (1.000-1.030) Urine Protein (Negative) Urine Glucose (UA) (Negative) Urine Ketones (Negative) Urine Blood (Negative) Urine Nitrite (Negative) Urine Bilirubin (Negative) Urine Urobilinogen (Negative) Ur Leukocyte Esterase (Negative) Urine WBC (Auto) (0-5) /hpf Urine RBC (Auto) (0-2) /hpf U Hyaline Cast (Auto) (0-2) /lpf U Epithel Cells (Auto) (0-2) /hpf Urine Bacteria (Auto) (None Seen) Hyaline Casts (None Presnt) /lpf Urine Mucus (None Prsent) Adenovirus (PCR) (NotDetected) B. pertussis DNA (PCR) (NotDetected) B.parapertussis DNA PCR (NotDetected) C. pneumoniae DNA (PCR) (NotDetected) Coronavirus OC43 (PCR) (NotDetected) Coronavirus HKU1 (PCR) (NotDetected) Coronavirus 229E (PCR) (NotDetected) SARS-CoV-2 (PCR) (NotDetected) Coronavirus NL63 (PCR) (NotDetected) Human Metapneumovir PCR (NotDetected) Influenza Type A (PCR) (NotDetected) Influenza Type B (PCR) (NotDetected) M. pneumoniae (PCR) (NotDetected) Parainfluenza 1 (PCR) (NotDetected) Parainfluenza 2 (PCR) (NotDetected) Parainfluenza 3 (PCR) (NotDetected) Parainfluenza 4 (PCR) (NotDetected) RSV (PCR) (NotDetected) Entero/Rhino (PCR) (NotDetected) 01/19/25 01/19/25 01/19/25 Range/Units 14:40 13:20 13:15 WBC 6.36 (4.8-10.8) K/ul RBC 4.43 (4.20-5.40) M/uL Hgb 12.1 (12.0-16.0) g/dl Hct 37.5 (37.0-47.0) % MCV 84.7 (80.0-100.0) fL MCH 27.3 (25.0-34.0) pg MCHC 32.3 (32.0-36.0) g/dL RDW Std Deviation 47.0 H (36.4-46.3) fL RDW Coeff of El 15.5 H (11.5-14.5) % Plt Count 223 (130-400) K/uL MPV 9.7 (9.4-12.4) fL Immature Gran % (Auto) 0.5 % Neut % (Auto) 80.2 % Lymph % (Auto) 8.0 % [place] % (Auto) 8.2 % Eos % (Auto) 2.8 % Baso % (Auto) 0.3 % Neut # (Auto) 5.10 (1.40-6.50) K/uL Lymph # (Auto) 0.51 L (1.20-3.40) K/uL [place] # (Auto) 0.52 (0.11-0.59) K/uL Eos # (Auto) 0.18 (0.00-0.50) K/uL Baso # (Auto) 0.02 (0.00-0.20) K/uL Immature Gran # (Auto) 0.03 (0.01-0.20) K/uL PT 10.9 (9.0-12.0) Seconds INR 1.0 (0.9-1.1) Sodium 137 (136-145) mmol/L Potassium 4.1 (3.5-5.1) mmol/L Chloride 99 (98-107) mmol/L Carbon Dioxide 30 (21-32) mmol/L Anion Gap 8 (3-11) BUN 15 (6-23) mg/dl Creatinine 0.80 (0.6-1.2) mg/dl Est Cr Clr Drug Dosing 59.1 ml/min eGFR 80.71 BUN/Creatinine Ratio 18.8 (10-20) Glucose 123 H (70-99(Fasting)) mg/dl POC Glucose (70-99) mg/dl Calcium 9.6 (8.6-10.3) mg/dl Magnesium 2.2 (1.7-2.4) mg/dl Total Bilirubin 0.5 (0.2-1.0) mg/dl AST 47 H (13-39) U/L ALT 62 H (7-52) U/L Alkaline Phosphatase 211 H (34-104) U/L Troponin I High Sens 9.9 (0-14) pg/ml Total Protein 7.2 (6.0-8.3) gm/dl Albumin 3.8 (3.4-5.0) gm/dl Globulin 3.4 (2.5-4.0) gm/dl Albumin/Globulin Ratio 1.1 (0.9-2) Lipase 10 L (11-82) U/L Urine Color Dark Yellow Urine Appearance Clear (Clear) Urine pH 5.0 (4.5-7.5) Ur Specific [place] 1.025 (1.000-1.030) Urine Protein Trace H (Negative) Urine Glucose (UA) Negative (Negative) Urine Ketones Trace H (Negative) Urine Blood Negative (Negative) Urine Nitrite Negative (Negative) Urine Bilirubin 1+ H (Negative) Urine Urobilinogen Negative (Negative) Ur Leukocyte Esterase Negative (Negative) Urine WBC (Auto) 0-5 (0-5) /hpf Urine RBC (Auto) 0-2 (0-2) /hpf U Hyaline Cast (Auto) >20 H (0-2) /lpf U Epithel Cells (Auto) 6-10 H (0-2) /hpf Urine Bacteria (Auto) None Seen (None Seen) Hyaline Casts Present A (None Presnt) /lpf Urine Mucus Present A (None Prsent) Adenovirus (PCR) Not Detected (NotDetected) B. pertussis DNA (PCR) Not Detected (NotDetected) B.parapertussis DNA PCR Not Detected (NotDetected) C. pneumoniae DNA (PCR) Not Detected (NotDetected) Coronavirus OC43 (PCR) Not Detected (NotDetected) Coronavirus HKU1 (PCR) Not Detected (NotDetected) Coronavirus 229E (PCR) Not Detected (NotDetected) SARS-CoV-2 (PCR) Not Detected (NotDetected) Coronavirus NL63 (PCR) Not Detected (NotDetected) Human Metapneumovir PCR Not Detected (NotDetected) Influenza Type A (PCR) Not Detected (NotDetected) Influenza Type B (PCR) Not Detected (NotDetected) M. pneumoniae (PCR) Not Detected (NotDetected) Parainfluenza 1 (PCR) Not Detected (NotDetected) Parainfluenza 2 (PCR) Not Detected (NotDetected) Parainfluenza 3 (PCR) Not Detected (NotDetected) Parainfluenza 4 (PCR) Not Detected (NotDetected) RSV (PCR) Not Detected (NotDetected) Entero/Rhino (PCR) Not Detected (NotDetected) Medications Administered Current Inpatient Medications Acetaminophen (Acetaminophen 500 Mg Tab) 1,000 mg PO Q8H [facility] Stop: 02/18/25 21:59 Last Admin: 01/20/25 05:53 Dose: 1,000 mg Aspirin (Aspirin 81 Mg Ectab) 81 mg PO QAM [facility] Stop: 02/19/25 08:59 Last Admin: 01/20/25 08:08 Dose: 81 mg Atenolol (Atenolol 25 Mg Tablet) 25 mg PO QAM JODY Stop: 02/18/25 21:53 Last Admin: 01/20/25 08:08 Dose: 25 mg Atorvastatin Calcium (Atorvastatin 40 Mg Tab) 80 mg PO PM JODY Stop: 02/19/25 20:59 Dexamethasone (Dexamethasone 4 Mg Tab) 4 mg PO Q12H JODY Stop: 02/19/25 08:59 Last Admin: 01/20/25 08:08 Dose: 4 mg Dextrose (Dextrose 50% 50 Ml Syringe) 25 - 50 ml IV UD PRN; Protocol PRN Reason: Hypoglycemia Protocol Stop: 02/18/25 21:53 Enoxaparin Sodium (Enoxaparin Inj 40 Mg/0.4 Ml Syr) 40 mg SQ PM JODY Stop: 02/18/25 21:53 Last Admin: 01/19/25 23:17 Dose: 40 mg Glucagon (Glucagon For Inj 1 Mg Vial) 1 mg SQ UD PRN; Protocol PRN Reason: Hypoglycemia Protocol Stop: 02/18/25 21:53 Glucose (Glucose 40% Gel 15 Gm Tube) 15 - 30 gm PO UD PRN; Protocol PRN Reason: Hypoglycemia Protocol Stop: 02/18/25 21:53 Glucose (Glucose 10 Tab/Tube) 4 - 8 tab PO UD PRN; Protocol PRN Reason: Hypoglycemia Protocol Stop: 02/18/25 21:53 Hydromorphone HCl (Hydromorphone Inj 1 Mg/Ml Syringe) 1 mg IV Q6H PRN PRN Reason: Severe Pain (Scale 7, 8, 9,10) Stop: 02/02/25 21:53 Insulin Aspart (Insulin Aspart Per Unit Charge) 0 units SC ACHS [facility] Stop: 02/18/25 21:53 Last Admin: 01/19/25 22:20 Dose: Not Given Levetiracetam (Levetiracetam 500 Mg Tab) 500 mg PO BID [facility] Stop: 02/18/25 21:53 Last Admin: 01/20/25 08:08 Dose: 500 mg Levothyroxine Sodium (Levothyroxine Sodium 100 Mcg Tablet) [facility] Stop: 02/19/25 06:29 Last Admin: 01/20/25 05:53 Dose: 100 mcg Memantine (Memantine Hcl 5 Mg Tab) 5 mg PO BID [facility] Stop: 02/18/25 21:53 Last Admin: 01/20/25 08:08 Dose: 5 mg Miscellaneous (Carbohydrates For Hypoglycemia ) 15 - 30 gm PO UD PRN PRN Reason: Hypoglycemia Protocol Stop: 02/18/25 21:53 Morphine Sulfate (Morphine Sulfate Ir 15 Mg Tab (Immediate Release)) 15 mg PO Q4H PRN PRN Reason: Pain Stop: 02/02/25 21:53 Ondansetron HCl (Ondansetron Inj 2 Mg/Ml 2 Ml Vial) 4 mg IV Q6H PRN PRN Reason: Nausea Stop: 02/18/25 21:53 Last Admin: 01/19/25 23:15 Dose: 4 mg Pantoprazole Sodium (Pantoprazole 40 Mg Tab) 40 mg PO DAILY [facility] Stop: 02/19/25 08:59 Last Admin: 01/20/25 08:08 Dose: 40 mg Polyethylene Glycol (Polyethylene (Miralax) 17 Gm Pack) 17 gm PO DAILY PRN PRN Reason: Constipation Stop: 02/18/25 21:53 (4) Breast cancer metastasized to brain Laterality: left Qualified Code(s): C50.912 - Malignant neoplasm of unspecified site of left female breast; C79.31 - Secondary malignant neoplasm of brain (5) Hypertension Hypertension type: primary hypertension Qualified Code(s): I10 - Essential ( primary) hypertension (6) Diabetes type 2, uncontrolled Glycemic state: with hyperglycemia Qualified Code(s): E11.65 - Type 2 diabetes mellitus with hyperglycemia (8) Hypothyroidism Hypothyroidism type: unspecified Qualified Code(s): E03.9 - Hypothyroidism, unspecified
[2025-01-20] MEDS: ASPIRIN 81 MG ECTAB PO SCH (08:08)
[2025-01-20] MEDS: PANTOprazole 40 MG TAB PO SCH (08:08)
[2025-01-20] MEDS: dexAMETHasone 4 MG TAB PO SCH (08:08)
[2025-01-20 08:51] LABS: Magnesium 1.9 mg/dl (1.7-2.4); Phosphorus 3.2 mg/dl (2.5-4.9)
--- NOTE | 2025-01-20 09:45 | Radiation OncologyConsultation ---
Date of Consultation January 20, 2025 Assessment & Plan (1) Metastatic breast cancer: 69-year-old female with metastatic breast cancer. Metastasis to multiple sites. She is currently undergoing whole brain radiation therapy. She has completed 7 of 10 fractions. She has also had ongoing back pain. She has been simulated and plans are ready to also treat the pelvis and thoracic spine. Patient would like to wait until Friday to restart therapy. She has markedly improved after receiving hydration. Laboratory studies reviewed. She is not having a viral syndrome. We did discuss that her DICOM is in a position that could be affected by radiation. Upon hospitalization the DICOM was removed. I have asked her to place this on her upper posterior arm after she returns home. This will keep the device away from the radiation therapy. ATTENDING ADDENDUM: Patient's case was reviewed with mid-level provider. Plan is to hold radiation therapy until next week at patient's request. History of Present Illness Reason for Consultation: Patient currently undergoing radiation therapy. Admitted for headache, nausea, vomiting and diarrhea. Requesting Physician: Ric Rivera MD Attending Physician: Ric Rivera MD History of Present Illness Ms. Cruz has a family history of breast cancer. The patient's father was diagnosed and treated with lumpectomy and radiation at age 75. She at 89 evidence of breast cancer. On self-examination noted a Left breast mass present for 6 months to 1 year. 04/10/2022. Bilateral screening mammogram. No mammographic evidence of malignancy. BI-RADS Category 2. There was a heterogeneously dense non-mass 17 mm partially circumscribed and partially obscured focal asymmetry in the upper outer posterior depth with partial rim calcification is suggestive of a benign etiology such as a cyst, without significant change. No new dominant mass or cluster of microcalcifications suspicious for malignancy are identified. The mass began as a small mass the size of a pea. This steadily grew to approximately size of a golf ball. 05/29/2023. Diagnostic mammogram and left breast ultrasound. Evaluation for a detected mass in the upper outer quadrant. Impression Left MAMMOGRAM DIAGNOSTIC JANET BILATERAL Left breast 43 mm x 33 mm x 48 mm mass at the upper outer middle position. Assessment: 4 - Suspicious finding. Surgical consultation/biopsy is recommended. US BREAST LIMITED LEFT Left breast mass at the 2 o'clock position. Assessment: 4 - Suspicious finding. Surgical consultation/biopsy is recommended. Right MAMMOGRAM DIAGNOSTIC JANET BILATERAL No mammographic evidence of malignancy. BI-RADS Category: 4 Suspicious . Recommendation Surgical consultation is recommended for the left breast for potential excision as desired by the patient. Resume annual screening mammography is recommended for the right breast. 06/06/2023. Surgical consultation (Dr. Robi Geiger). Ultrasound-guided biopsy of the solid portion of the mass was recommended. 06/24/2023. Ultrasound-guided core needle biopsies of the left breast. Breast, left, Block [id number]: A. Left breast, 2:00 complex cystic lesion, core biopsy: Cores of breast tissue with few small detached fragments of adenocarcinoma Estrogen Receptor (ER) protein expression is NEGATIVE <1% nuclear positivity COMMENT: Assay internal and external control immunoreactivity is appropriate. Progesterone Receptor (OR) protein expression is NEGATIVE <1% nuclear positivity HER2 oncoprotein expression is NEGATIVE ( 0 average membranousintensity) COMMENT: Assay internal and external control immunoreactivity is appropriate. HER2 oncoprotein expression is NEGATIVE ( 0 average membranous intensity) 07/02/2023. Surgical follow-up. Review of pathology. Recommendation for breast MRI. 07/08/2023. Medical oncology consultation (Dr. Zapata). Recommendation to complete breast MRI as well as PET scan. 07/14/2023. Bilateral breast MRI. The biopsy-proven malignancy corresponds to a mixed cystic/solid enhancing mass with mixed kinetics including washout in the upper outer and central left breast measuring approximately 4.2 x 4.0 x 4.2 cm. Low suspicion foci of enhancement are inferior and anterior to the biopsy-proven malignancy.If these represent additional disease, the total disease extent would measure 5.4 cm and 4.5 cmin the maximal anterior-posterior and craniocaudal dimensions respectively. No MRI evidence of malignancy in the right breast. No suspicious axillary or internal mammary lymphadenopathy. 07/23/2023. Surgical follow-up. MRI was reviewed. This demonstrates a large mass in the left breast as well as a satellite lesion. Pathology was reviewed. Options of treatment were reviewed. Patient wishes to proceed with bilateral mastectomies and left sentinel lymph node biopsy. Discussed 08/18/2023. Bilateral mastectomies with left axillary sentinel lymph node biopsy. Path report reveals: FINAL DIAGNOSIS A. Breast, right, mastectomy: - Intraductal papilloma with usual ductal hyperplasia. Fibrocystic change. - One benign-appearing incidental lymph node. B. [place] lymph node #1, left axilla, biopsy: - Metastatic carcinoma involving 1 lymph node (/). - Size of metastasis: 20 mm in greatest dimension. - No extranodal invasion identified. C. [place] lymph node #2, left axilla, biopsy: - Metastatic carcinoma involving 1 lymph node (/). - Size of metastasis: 1.2 mm in greatest dimension. - No extranodal invasion identified. D. [place] lymph node #3, left axilla, biopsy: - Negative for metastatic carcinoma (0/1). E. Breast, left, mastectomy: - Invasive ductal carcinoma. - See synoptic report. F. [place] lymph node #4, left axilla, biopsy: - Negative for metastatic carcinoma (0/1). Clinical History Malignant neoplasm of the left breast. Procedure performed: Bilateral mastectomies with left axillary sentinel lymph node biopsy. Gross Description A. RIGHT BREAST The specimen is received in a container labeled right breast with the patient name. The specimen consists of a mastectomy which weighs 646 g and overall measures 24 x 18 x 3 cm. The skin ellipse measures 16.2 x 6.5 cm with a roughly central, everted and freely movable nipple which measures 1.2 cm in diameter. 4 cm medial to the nipple is a 0.3 x 0.2 cm pale Synoptic Report INVASIVE CARCINOMA OF THE BREAST: Resection SPECIMEN Procedure: Total mastectomy Specimen Laterality: Left TUMOR Histologic Type: Invasive carcinoma of no special type (ductal) Glandular (Acinar) / Tubular Differentiation: Score 3 Nuclear Pleomorphism: Score 3 Mitotic Rate: Score 2 Overall Grade: Grade 3 (scores of 8 or 9) Tumor Size: Greatest dimension of largest invasive focus (Millimeters) - 50 mm Ductal Carcinoma In Situ (DCIS): Present Lymphatic and / or Vascular Invasion: Not identified Treatment Effect in the Breast: No known presurgical therapy MARGINS Margin Status for Invasive Carcinoma: All margins negative for invasive carcinoma Distance from Invasive Carcinoma to Closest Margin: 10 mm Closest Margin(s) to Invasive Carcinoma: Deep margin. Margin Status for DCIS: All margins negative for DCIS Distance from DCIS to Closest Margin: Greater than - 20 mm Closest Margin(s) to DCIS: Deep margin. REGIONAL LYMPH NODES Regional Lymph Node Status: Tumor present in regional lymph node(s) Number of Lymph Nodes with Macrometastases - 1 Number of Lymph Nodes with Micrometastases - 1 Number of Lymph Nodes with Isolated Tumor Cells - 0 Size of Largest [place]isha Metastatic Deposit - 20 mm Extranodal Extension - Not identified Total Number of Lymph Nodes Examined (sentinel and non-sentinel): 4 Number of [place] Nodes Examined: 4 pTNM CLASSIFICATION (AJCC 8th Edition) Reporting of pT, pN, and (when applicable) pM categories is based on information available to the pathologist at the time the report is issued. As per the AJCC (Chapter 1, 8th Ed.) it is the managing physician's responsibility to establish the final pathologic stage based upon all pertinent information, including but potentially not limited to this pathology report. pT Category: pT2 pN Category: pN1a N Suffix: (sn) Comment(s): Paraffin block E3 would be appropriate if any ancillary testing is required. Current Procedural Terminology 09/18/2023. Placement of Port-A-Cath. 09/19/2023. PET/CT. 1. Interval bilateral mastectomies. No FDG PET-CT evidence for residual or metastatic breast cancer. 2. Uncomplicated acute sigmoid diverticulitis. 08/28/2023. Surgical follow-up. Review of pathology. Pain was reviewed. Referral to radiation oncology and medical oncology. 09/01/2023. Medical oncology follow-up. Planning dose dense AC-T. Adjuvant therapy. 09/03/2023. Surgical follow-up. Patient has had excellent postoperative course. She will be following up with medical allergy and radiation oncology. 09/23/2023. Patient seen in radiation oncology for evaluation and discussion of the recommended adjuvant treatment options following surgery and chemotherapy. 09/25/2023. Initiation of systemic treatment with doxorubicin plus cyclophosphamide. Dose dense every 14 days. Followed by paclitaxel weekly for 12 weeks. 10/01/2023. Surgical follow-up. Patient has had an excellent postoperative course. She is starting chemotherapy. This will be followed by radiation. There was slight erythema. She was given Keflex. 10/15/2023. Surgical follow-up. Possible stitch abscess. Did not require any surgical intervention or antibiotic. 10/22/2023. Medical oncology follow-up. She has received 2 cycles of dose dense Adriamycin and Cytoxan. Tolerating this well. Some nausea. Continue current chemotherapy. 10/29/2023. NM brain speck with data scan. Asymmetric dopamine transporter distribution, truncated on the right. Findings suggest Parkinsoniansyndrome, such as Parkinson's disease, multiple systems atrophy, or progressive supranuclear palsy. 10/30/2023. Gastric band adjustment. Bariatric surgery. (Dr. Nichols). Air was released from the band. Has had approximate 50 pound weight loss since placement of the band. 12/18/2023. Surgical follow-up. Continue with nutrition and weight management. Follow-up with bariatric surgery. 12/19/2023. Genetic counseling. Laboratory studies ordered. Genetic testing negative. 12/31/2023. Medical oncology follow-up. He is continue weekly Taxol. Taxol was reduced by 15%. Due to swelling of the extremities. 01/08/2024. Oncology follow-up. Tolerating treatment well. Patient will follow-up with radiation oncology. 01/22/2024. Medical oncology follow-up. Proceed with Taxol at 15% reduction. 02/04/2024. Medical oncology follow-up. Chemotherapy. Will follow-up with radiation. 02/12/2024. Completion of systemic chemotherapy. 02/24/2024. Radiation oncology follow-up. Patient has now completed her chemotherapy. She tolerated this well other than edema of the lower extremities. For this the chemotherapy was reduced by 15% for the Taxol. She has had intermittent issues with her port. There is been an infection on 2 occasions. At this time this was treated with an antibiotic. She stated over the past 2 days this seems to be occurring again. The port area is tender. There is redness of the skin and swelling. She will be seeing Dr. Zapata today as well as the surgeon. Lymphedema was discussed. She was offered a referral. She currently was not inclined to have a preventative evaluation. 06/23/2024. Medical oncology follow-up (Dr. Zapata). She is clinically improved. She is feeling stronger. Did have issues with neuropathy and leg swelling while undergoing chemotherapy. 07/13/2024. Surgical follow-up. Plan for laparoscopy with removal of gastric restrictive device and subcutaneous port components. 08/04/2024. Laparoscopic removal of gastric band and components. Upper GI endoscopy including esophagus, stomach and/or duodenum and jejunum, diagnostic, without collection of specimen. Performed due to his dysphagia. 08/12/2024. Surgical follow-up. Patient is doing well postoperatively. Did not require any pain medication. Had no issues with nausea or vomiting. Some i ssues with constipation. Excellent progress postop. 08/20/2024. Radiation oncology follow-up. Patient had no issues with wet desquamation following treatment. She did have some dry desquamation and peeling. This area healed and there was then a tanning of the skin. She has noted no masses or tenderness and no change of the axilla. She has had no swelling of her arm. She underwent the removal of gastric band. This is doing well other than a small hematoma to of the right mid abdominal incision. 09/22/2024. Medical oncology follow-up. Clinically is feeling better without any new symptoms. Improved energy. Neuropathy overall stable. 12/21/2024. Medical oncology follow-up. Patient has complaints of headache, lightheadedness, dizziness and balance issues. Has noted subcutaneous nodules of the right shoulder and left neck. She has pain at the ribs. Restaging studies were ordered. MRI of the brain and PET/CT. 12/29/2024. PET/CT. Widely disseminated disease. Including brain, lung, liver, bone, nisha and subcutaneous metastasis. 12/30/2024. Emergency room evaluation due to seizure. 12/30/2024. CT of the head. There is a 2.0 x 1.8 cm left parietal mass with moderate surrounding vasogenic edema. Follow-up characterization with MRI brain without and with contrast recommended. Patient was transferred to [facility]. 12/30/2024. Neurology oncology consultation. Patient is on Keppra 500 mg twice daily. She is on dexamethasone. LTM EEG. 1. Left temporoparietal slowing suggesting focal cerebral dysfunction in that region. 2. Diffuse slowing suggesting a mild degree of diffuse or multifocal cerebral dysfunction of nonspecific etiology. CT of the chest abdomen pelvis were ordered. Palliative care consult. Recommended radiation oncology. 12/30/2024. Neurology consultation. Continue Keppra. Agree with steroid therapy. MRI of the brain with and without contrast. 12/30/2024. Brain MRI. 1. Multiple brain metastases in the bilateral cerebral and cerebellar hemispheres, several of them containing small amount of chronic blood products and/or mineralization. 2. The largest metastasis at the left parietooccipital junction measures up to 2.5 cm and in conjunction with moderate surrounding vasogenic edema is producing a local mass effect. All other metastases are subcentimeter in size without significant edema or mass effect. 12/30/2024. CT of the chest abdomen and pelvis. Thoracic and abdominal metastasis involving the lungs, liver, lymph nodes, peritoneum, subcutaneous tissue and bones. 12/30/2024. Palliative care consultation. 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 Multiple areas of metastasis. Consultation and education on advance care planning. Emotional support. 12/31/2024. Radiation oncology consultation (Dr. Lipscomb). Recommendation for palliative whole brain radiation therapy plus or minus hippocampal sparing. Patient would prefer treatment in [place]. Referral to Dr. Alonzo Ly. 01/03/2025. Radiation oncology consultation (Dr. Ly). Patient has had no further surgeries since the hospitalization. She denies headaches today. She does have some feeling of being off balance and veering more to the right side. She notes some issues with memory. She denies nausea. She continues on Decadron 4 mg 3 times daily. Keppra 500 mg twice daily. She was discharged on Senokot as well as Prilosec. 01/10/2025. Initiation of whole brain radiation therapy. 01/19/2025. Patient presented for her radiation therapy. She received 7 of 10 fractions. Following her treatment she asked to be seen. She had been not feeling well over the past 24 to 48 hours she has been eating very little. She has a very poor appetite. She has had ongoing headache. She then developed nausea and vomiting. Throughout the evening prior she had recurrent diarrhea. She denies fever or chills. In our office she was assessed and it was felt that she had dehydration. Recommendation for her to be evaluated in the emergency room and rule out possible viral syndrome. At her on treatment visit headaches were noted and prescription was sent for dexamethasone. The pharmacy did not contact them that it was filled and she therefore had not started the medication. 01/20/2025. Inpatient consultation radiation oncology. Patient is markedly improved today. She denies headache. She has not had any further nausea or vomiting. She received intravenous fluids. She has been voiding. Appetite has improved. We discussed restart of treatment. Allergies Allergy/AdvReac Type Severity Reaction Status Date / Time No Known Allergies Allergy Verified 01/03/25 09:48 Home Medications Medication Instructions Recorded Confirmed Type acetone (urine) test (Ketostix #25 ea 05/11/19 01/10/25 History strips) atorvastatin 80 mg tablet 80 mg PO PM 05/11/19 01/19/25 History ergocalciferol (vitamin D2) 1,250 50,000 units PO WEEKLY #14 caps 05/11/19 01/19/25 History mcg (50,000 unit) capsule insulin aspart U-100 100 unit/mL 5 - 25 units subcut UD 05/11/19 01/19/25 History (3 mL) subcutaneous pen (Novolog FlexPen U-100 Insulin aspart) lancets 33 gauge (OneTouch Delica #100 ea 05/11/19 01/10/25 History Lancets) levothyroxine 100 mcg tablet 100 mcg PO QAM 05/11/19 01/19/25 History pen needle, diabetic 32 gauge x #10 ea 05/11/19 01/10/25 History 5/32" (BD Ultra-Fine [place] Pen Needle) blood sugar diagnostic (FreeStyle #6 Boxes 05/21/19 01/10/25 Rx Precision Humza Strips) aspirin 81 mg tablet,delayed 81 mg PO QAM 08/07/19 01/19/25 History release (Karrie Low Dose Aspirin) FreeStyle Adán 14 Day [place] #1 ea 02/17/20 01/10/25 Rx (flash glucose scanning reader) FreeStyle Adán 14 Day Sensor #7 ea 02/17/20 01/10/25 Rx (flash glucose sensor) atenolol 25 mg tablet 25 mg PO QAM 08/08/23 01/19/25 History losartan 100 1 tab PO PM 08/08/23 01/19/25 History mg-hydrochlorothiazide 25 mg tablet urea 20 % topical cream 1 applic topical BID PRN Other 02/24/24 01/19/25 History insulin glargine 100 unit/mL 30 unit subcut HS 01/03/25 01/19/25 History subcutaneous solution (Lantus U-100 Insulin) dexamethasone 4 mg tablet 4 mg PO Q12H #30 tabs 01/17/25 01/19/25 Rx acetaminophen 500 mg tablet 1,000 mg PO Q8H PRN Pain 01/19/25 01/19/25 History levetiracetam 500 mg tablet 500 mg PO BID 01/19/25 01/19/25 History memantine 5 mg tablet 5 mg PO UD Memory 01/19/25 01/19/25 History morphine 15 mg immediate release 15 mg PO Q4H PRN Pain 01/19/25 01/19/25 History tablet omeprazole 20 mg capsule,delayed 20 mg PO DAILY 01/19/25 01/19/25 History release sennosides 8.6 mg tablet 8.6 mg PO BID 01/19/25 01/19/25 History tirzepatide 12.5 mg/0.5 mL 12.5 mg subcut WK 01/19/25 01/19/25 History subcutaneous pen injector ([place]) Patient History Medical History Port-A-Cath in place (09/18/23) 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 Robi Geiger History of dilatation and curettage History of breast biopsy (06/24/23) Left History of colonoscopy History of tooth extraction History of cataract surgery bilat History of tonsillectomy Hx of laparoscopic gastric banding Family History Mother , Passed Age 90 Breast cancer, Onset Age: 75 Lumpectomy and RT Father No problems noted. Brother No problems noted. Brother No problems noted. Brother No problems noted. Sister No problems noted. Sister No problems noted. Son No problems noted. 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 Results (Rad Onc) Laboratory Results: were reviewed and no pertinent findings Time Spent Midlevel I spent [15] minutes in preparation for this follow up evaluation including reviewing all the clinical records, reviewing laboratory studies, pathology reports and imaging results. I spent [20] minutes with direct face to face interaction with the patient and/or family including performing a physical exam and answering all questions. I spent [15] minutes documenting this patient's visit. PG Care Time/CCT Total # of Minutes Spent Total Time Spent with Patient: Total time spent is greater than 50% in coordination of care (as documented) at patient's floor/unit and/or counseling patient: [place] [address] IN/OBS CONSULT LVL 3,45M Patient Type Established History Problem Focused Exam Problem Focused Medical Decision Making Straight Forward Diagnoses Metastatic breast cancer C50.919
[2025-01-20] MEDS: HYDROmorphone INJ 1 MG/ML SYRINGE IV PRN (15:21)
[2025-01-20] MEDS: ATORVASTATIN 40 MG TAB PO SCH (21:07)
[2025-01-20] MEDS: MoRPHine SULFATE IR 15 MG TAB (IMMEDIATE RELEASE) PO PRN (22:26)
[2025-01-21 07:19] LABS: Hematocrit (blood only) 30.9 % (37.0-47.0); Mean Corpuscular Hemoglobin 27.4 pg (25.0-34.0); Mean Corpuscular Hgb Conc 32.4 g/dL (32.0-36.0); Mean Corpuscular Volume 84.7 fL (80.0-100.0); Mean Platelet Volume 9.5 fL (9.4-12.4); Platelet Count 204 K/uL (130-400); RDW Coefficient of Variation 15.6 % (11.5-14.5); RDW Standard Deviation 47.8 fL (36.4-46.3); Red Blood Count 3.65 M/uL (4.20-5.40); White Blood Count 7.07 K/ul (4.8-10.8)
[2025-01-21 07:39] LABS: BUN Creatinine Ratio 20.8 (10-20); Calcium 8.5 mg/dl (8.6-10.3); Creatinine Clr Calc Pharmacy 96.8 ml/min; Magnesium 1.8 mg/dl (1.7-2.4); Phosphorus 2.7 mg/dl (2.5-4.9); Potassium 4.3 mmol/L (3.5-5.1)
[2025-01-21] MEDS: POLYETHYLENE (MIRALAX) 17 GM PACK PO ONE (09:38)
--- NOTE | 2025-01-21 19:12 | Hospitalist Progress Note ---
Date of Service January 21, 2025 Assessment & Plan (1) Intractable back pain: (2) Nausea & vomiting: (3) Metastasis to spinal column: (4) Breast cancer metastasized to brain: Plan: Patient is 69 year old female with PMH HTN, DM II, hypothyroidism, breast cancer in 2022 s/p bilateral mastectomy, recently diagnosed metastasis to spine, pelvis, liver, spleen, lungs, brain presented to ER with c/o N/V/D x 2 days. Recently diagnosed with metastatic cancer in 12/2024 after developed seizure and was found to have brain metastasis. Continue Keppra, dexamethasone, PPI Continue home oral morphine. (Recently oxycodone changed to morphine for attempt at further pain control). Add Dilaudid IV as needed breakthrough pain. Scheduled Tylenol, lidocaine patch Memantine started by radiation oncology and is currently being uptitrated. Currently on week 2 dose. Receiving radiation oncology with Dr Ly at [facility]. Consulted to determine further radiation recommendations Following with oncology, Dr Zapata. Recently saw [facility] palliative care #N/V/D During ER course patient reports improvement in symptoms and sipping on fluids and tolerating. No further diarrhea. Denies abdominal pain currently. IVF Liquid diet for now, plan to advance as patient tolerates Stool culture ordered 01/20 Pt had loose stool, but sample not collected No n/v Pt feels much better today and tolerating liquid diet 01/21 No vomiting, no BM today. Reports feeling well, but not well enough to go home. Will re-eval tmrw (5) Hypertension: Plan: Continue atenolol Hold losartan, HCTZ (6) Diabetes type 2, uncontrolled: Plan: Insulin dependent A1c: 7.1 on 12/30/24 Currently decreased oral intake and liquid diet. Hold home insulin Novolog sliding scale per protocol and monitor. May need to further adjust as diet expands (7) Dyslipidemia: Plan: Continue atorvastatin (8) Hypothyroidism: Plan: Continue levothyroxine DVT Prophylaxis Lovenox SQ Dispo: telemetry Full Code as per discussion with pt. Wants to be full code for now, until further workup and recommendations by oncology Follows with Dr Castellon for routine care Admission and Anticipated Discharge Date Admission Date: January 19, 2025 Subjective Pt seen in follow up admitted d/t n/v/d, hx of metastatic breast ca, sent in to ED from rad onc office Currently sitting up in bed in NAD, reports feeling much better, tolerating full liquid diet, no n/v She had loose stool yesterday - sample was not obtained. No stool today no fever, chills, chest pain or shortness of breath, no abd. pain Pt feels much better today she says but still does not feel well to go home, will re-eval tmrw Review of Systems Review of Systems: All systems reviewed & are unremarkable except as noted in Subjective Physical Exam Physical Exam: GENERAL: Alert and oriented x3. NAD, on RA. Head tremor. HEENT: NC/AT. Pupils equal, round and reactive to light. Oral mucosa moist. NECK: No JVD, no neck masses. HEART: S1 and S2 heard. Regular rate and rhythm. RESPIRATORY: Normal AP diameter. No accessory muscle use. No wheezing, no crackles. ABDOMEN: Soft, bowel sounds present, nontender, no distention. NEURO: awake, alert, answers appropriately, speech fluent, No facial droop. Speech is clear. Moves extremities. EXTREMITIES: No edema, no erythema seen. Results & Data Results & Data Vital Signs (Past 12 Hours) Vital Signs Temp Pulse Pulse Resp BP Pulse Ox O2 Del Method 01/21/25 15:30 36.8 C 57 L 20 127/86 95 Room Air 01/21/25 10:55 36.9 C 53 L 18 131/79 97 Room Air 01/21/25 08:26 59 L 01/21/25 07:47 36.5 C 57 L 18 109/67 95 Room Air 01/21/25 07:27 Room Air Laboratory Results 01/21/25 01/21/25 01/21/25 Range/Units 17:05 11:58 07:52 WBC (4.8-10.8) K/ul RBC (4.20-5.40) M/uL Hgb (12.0-16.0) g/dl Hct (37.0-47.0) % MCV (80.0-100.0) fL MCH (25.0-34.0) pg MCHC (32.0-36.0) g/dL RDW Std Deviation (36.4-46.3) fL RDW Coeff of El (11.5-14.5) % Plt Count (130-400) K/uL MPV (9.4-12.4) fL Sodium (136-145) mmol/L Potassium (3.5-5.1) mmol/L Chloride (98-107) mmol/L Carbon Dioxide (21-32) mmol/L Anion Gap (3-11) BUN (6-23) mg/dl Creatinine (0.6-1.2) mg/dl Est Cr Clr Drug Dosing ml/min eGFR BUN/Creatinine Ratio (10-20) Glucose (70-99(Fasting)) mg/dl POC Glucose 293 H 201 H 191 H (70-99) mg/dl Calcium (8.6-10.3) mg/dl Phosphorus (2.5-4.9) mg/dl Magnesium (1.7-2.4) mg/dl 01/21/25 01/20/25 Range/Units 07:05 20:24 WBC 7.07 (4.8-10.8) K/ul RBC 3.65 L (4.20-5.40) M/uL Hgb 10.0 L (12.0-16.0) g/dl Hct 30.9 L (37.0-47.0) % MCV 84.7 (80.0-100.0) fL MCH 27.4 (25.0-34.0) pg MCHC 32.4 (32.0-36.0) g/dL RDW Std Deviation 47.8 H (36.4-46.3) fL RDW Coeff of El 15.6 H (11.5-14.5) % Plt Count 204 (130-400) K/uL MPV 9.5 (9.4-12.4) fL Sodium 139 (136-145) mmol/L Potassium 4.3 (3.5-5.1) mmol/L Chloride 107 (98-107) mmol/L Carbon Dioxide 27 (21-32) mmol/L Anion Gap 5 (3-11) BUN 10 (6-23) mg/dl Creatinine 0.48 L (0.6-1.2) mg/dl Est Cr Clr Drug Dosing 96.8 ml/min eGFR 103.75 BUN/Creatinine Ratio 20.8 H (10-20) Glucose 196 H (70-99(Fasting)) mg/dl POC Glucose 272 H (70-99) mg/dl Calcium 8.5 L (8.6-10.3) mg/dl Phosphorus 2.7 (2.5-4.9) mg/dl Magnesium 1.8 (1.7-2.4) mg/dl Medications Administered Current Inpatient Medications Acetaminophen (Acetaminophen 500 Mg Tab) 1,000 mg PO Q8H [facility] Stop: 02/18/25 21:59 Last Admin: 01/21/25 12:53 Dose: 1,000 mg Aspirin (Aspirin 81 Mg Ectab) 81 mg PO QAM [facility] Stop: 02/19/25 08:59 Last Admin: 01/21/25 07:51 Dose: 81 mg Atenolol (Atenolol 25 Mg Tablet) 25 mg PO QAM [facility] Stop: 02/18/25 21:53 Last Admin: 01/21/25 07:51 Dose: 25 mg Atorvastatin Calcium (Atorvastatin 40 Mg Tab) 80 mg PO PM [facility] Stop: 02/19/25 20:59 Last Admin: 01/20/25 21:07 Dose: 80 mg Dexamethasone (Dexamethasone 4 Mg Tab) 4 mg PO Q12H [facility] Stop: 02/19/25 08:59 Last Admin: 01/21/25 07:52 Dose: 4 mg Dextrose (Dextrose 50% 50 Ml Syringe) 25 - 50 ml IV UD PRN; Protocol PRN Reason: Hypoglycemia Protocol Stop: 02/18/25 21:53 Enoxaparin Sodium (Enoxaparin Inj 40 Mg/0.4 Ml Syr) 40 mg SQ PM [facility] Stop: 02/18/25 21:53 Last Admin: 01/20/25 21:08 Dose: 40 mg Glucagon (Glucagon For Inj 1 Mg Vial) 1 mg SQ UD PRN; Protocol PRN Reason: Hypoglycemia Protocol Stop: 02/18/25 21:53 Glucose (Glucose 40% Gel 15 Gm Tube) 15 - 30 gm PO UD PRN; Protocol PRN Reason: Hypoglycemia Protocol Stop: 02/18/25 21:53 Glucose (Glucose 10 Tab/Tube) 4 - 8 tab PO UD PRN; Protocol PRN Reason: Hypoglycemia Protocol Stop: 02/18/25 21:53 Hydromorphone HCl (Hydromorphone Inj 1 Mg/Ml Syringe) 1 mg IV Q6H PRN PRN Reason: Severe Pain (Scale 7, 8, 9,10) Stop: 02/02/25 21:53 Last Admin: 01/21/25 19:00 Dose: 1 mg Insulin Aspart (Insulin Aspart Per Unit Charge) 0 units SC ACHS [facility] Stop: 02/18/25 21:53 Last Admin: 01/21/25 17:45 Dose: 15 units Levetiracetam (Levetiracetam 500 Mg Tab) 500 mg PO BID [facility] Stop: 02/18/25 21:53 Last Admin: 01/21/25 07:52 Dose: 500 mg Levothyroxine Sodium (Levothyroxine Sodium 100 Mcg Tablet) 100 mcg PO DAILYBB [facility] Stop: 02/19/25 06:29 Last Admin: 01/21/25 05:59 Dose: 100 mcg Memantine (Memantine Hcl 5 Mg Tab) 5 mg PO BID [facility] Stop: 02/18/25 21:53 Last Admin: 01/21/25 07:52 Dose: 5 mg Miscellaneous (Carbohydrates For Hypoglycemia ) 15 - 30 gm PO UD PRN PRN Reason: Hypoglycemia Protocol Stop: 02/18/25 21:53 Morphine Sulfate (Morphine Sulfate Ir 15 Mg Tab (Immediate Release)) 15 mg PO Q4H PRN PRN Reason: Pain Stop: 02/02/25 21:53 Last Admin: 01/20/25 22:26 Dose: 15 mg Ondansetron HCl (Ondansetron Inj 2 Mg/Ml 2 Ml Vial) 4 mg IV Q6H PRN PRN Reason: Nausea Stop: 02/18/25 21:53 Last Admin: 01/21/25 06:00 Dose: 4 mg Pantoprazole Sodium (Pantoprazole 40 Mg Tab) 40 mg PO DAILY [facility] Stop: 02/19/25 08:59 Last Admin: 01/21/25 07:52 Dose: 40 mg Polyethylene Glycol (Polyethylene (Miralax) 17 Gm Pack) 17 gm PO DAILY PRN PRN Reason: Constipation Stop: 02/18/25 21:53 (4) Breast cancer metastasized to brain Laterality: left Qualified Code(s): C50.912 - Malignant neoplasm of unspecified site of left female breast; C79.31 - Secondary malignant neoplasm of brain (5) Hypertension Hypertension type: primary hypertension Qualified Code(s): I10 - Essential (primary) hypertension (6) Diabetes type 2, uncontrolled Glycemic state: with hyperglycemia Qualified Code(s): E11.65 - Type 2 diabetes mellitus with hyperglycemia (8) Hypothyroidism Hypothyroidism type: unspecified Qualified Code(s): E03.9 - Hypothyroidism, unspecified
[2025-01-22 07:57] VITALS: RESP 16
[2025-01-22 09:24] LABS: Calcium 8.6 mg/dl (8.6-10.3); Creatinine Clr Calc Pharmacy 90.3 ml/min; Magnesium 1.9 mg/dl (1.7-2.4); Phosphorus 2.6 mg/dl (2.5-4.9); Potassium 4.5 mmol/L (3.5-5.1)
[2025-01-22 09:27] LABS: Hematocrit (blood only) 33.3 % (37.0-47.0); Hemoglobin 10.7 g/dl (12.0-16.0); Mean Corpuscular Hemoglobin 27.2 pg (25.0-34.0); Mean Corpuscular Hgb Conc 32.1 g/dL (32.0-36.0); Mean Corpuscular Volume 84.5 fL (80.0-100.0); Mean Platelet Volume 9.9 fL (9.4-12.4); Platelet Count 231 K/uL (130-400); RDW Coefficient of Variation 15.7 % (11.5-14.5); RDW Standard Deviation 47.8 fL (36.4-46.3); Red Blood Count 3.94 M/uL (4.20-5.40); White Blood Count 6.89 K/ul (4.8-10.8)
--- NOTE | 2025-01-22 11:36 | Discharge Summary ---
Date of Service January 22, 2025 Admission HPI Per Admitting Provider Patient is 69 year old female with PMH HTN, DM II, hypothyroidism, breast cancer in 2022 s/p bilateral mastectomy, recently diagnosed metastasis to spine, pelvis, liver, spleen, lungs, brain presented to ER with c/o N/V/D x 2 days. Recently diagnosed with metastatic cancer in 12/2024 after developed seizure and was found to have brain metastasis. Today was to have radiation to brain, however presented to radiation oncology clinic today with above symptoms so referred to ER. Reports Nausea, vomiting, diarrhea x 2 days. Denies hematemesis, hematochezia, melena. Not eating or drinking well past 3 days. Not taking m edications past couple of days. Was taking sennosides twice daily since being on morphine. Was on oxycodone previously however last week was changed to oral morphine secondary to uncontrolled pain. Having ongoing back pain and abdominal pain. Denies any abdominal pain today. Receiving radiation oncology with Dr Ly at [facility]. Recently saw [facility]. Following with oncology, Dr Zapata. Family reports patient awaiting liver biopsy to determine further course with possible chemo. Family report over past several weeks since the seizure and diagnosis of brain mets patient having increased confusion, forgetfulness. States have seen progressive decline in functional status and now unable to walk and unable to feed herself. Family is hoping to get more assistance at home with wheelchair, possible hospital bed. Patient currently reports is aware of her current diagnosis but every thing just diagnosed so recently is trying to come to terms with diagnosis and figure out next steps. Currently wants to continue investigation and probable ongoing treatment. Is currently on Keppra and denies recurrent seizure. Denies fever/chills, cough, sore throat, CP, syncope, CP, SOB, orthopnea, palpitations, extremity edema, rashes, urinary symptoms. Admission Exam Per Admitting Provider GENERAL: Alert and oriented x3. NAD, on RA. Head tremor. Appears sick/weak/frail. HEENT: No pallor, no icterus. Pupils equal, round and reactive to light. Oral mucosa moist. NECK: No JVD, no neck masses. HEART: S1 and S2 heard. Regular rate and rhythm. No murmur, no gallop. RESPIRATORY SYSTEM: Normal AP diameter. No accessory muscle use. No wheezing, no crackles. ABDOMEN: Soft, bowel sounds present, nontender, no distention. CENTRAL NERVOUS SYSTEM: No facial droop. Speech is clear. Obeys simple commands. Moves extremities. EXTREMITIES: No edema, no erythema seen. Principal Diagnosis Nausea, vomiting, diarrhea in the setting of metastatic breast ca Discharge Exam GENERAL: Alert and oriented x3. NAD, on RA. Head tremor. HEENT: NC/AT. Pupils equal, round and reactive to light. Oral mucosa moist. NECK: No JVD, no neck masses. HEART: S1 and S2 heard. Regular rate and rhythm. RESPIRATORY: Normal AP diameter. No accessory muscle use. No wheezing, no crackles. ABDOMEN: Soft, bowel sounds present, nontender, no distention. NEURO: awake, alert, answers appropriately, speech fluent, No facial droop. Speech is clear. Moves extremities. EXTREMITIES: No edema, no erythema seen. Discharge Data Allergies Allergy/AdvReac Type Severity Reaction Status Date / Time No Known Allergies Allergy Verified 01/03/25 09:48 Consultations 01/19/25 18:40 ED Decision to Admit Stat 01/19/25 21:54 Consult Radiation Oncology Routine Hospital Course (1) Intractable back pain: (2) Nausea & vomiting: (3) Metastasis to spinal column: (4) Breast cancer metastasized to brain: Patient is 69 year old female with PMH HTN, DM II, hypothyroidism, breast cancer in 2022 s/p bilateral mastectomy, recently diagnosed metastasis to spine, pelvis, liver, spleen, lungs, brain presented to ER with c/o N/V/D x 2 days. Recently diagnosed with metastatic cancer in 12/2024 after developed seizure and was found to have brain metastasis. Continue Keppra, dexamethasone, PPI Continue home oral morphine. (Recently oxycodone changed to morphine for attempt at further pain control). Add Dilaudid IV as needed breakthrough pain. Scheduled Tylenol, lidocaine patch Memantine started by radiation oncology and is currently being uptitrated. Currently on week 2 dose. Receiving radiation oncology with Dr Ly at [facility]. Consulted to determine further radiation recommendations Following with oncology, Dr Zapata. Recently saw [facility] palliative care #N/V/D During ER course patient reports improvement in symptoms and sipping on fluids and tolerating. No further diarrhea. Denies abdominal pain currently. IVF Liquid diet for now, plan to advance as patient tolerates Stool culture ordered 01/20 Pt had loose stool, but sample not collected No n/v Pt feels much better today and tolerating liquid diet 01/21 No vomiting, no BM today. Reports feeling well, but not well enough to go home. Will re-eval tmrw 01/22 Feeling well, plan to DC home today. (5) Hypertension: Continue atenolol Hold losartan, HCTZ (6) Diabetes type 2, uncontrolled: Insulin dependent A1c: 7.1 on 12/30/24 Currently decreased oral intake and liquid diet. Hold home insulin Novolog sliding scale per protocol and monitor. May need to further adjust as diet expands (7) Dyslipidemia: Continue atorvastatin (8) Hypothyroidism: Continue levothyroxine Total Time Total Time Spent Total Time Spent (In Minutes): 40 Discharge Plan Discharge Items Patient Disposition: Home - Self-Care Reason For Visit: N/V/D Discharge Diagnosis: Nausea, vomiting, diarrhea in the setting of metastatic breast ca Activity: Per Instructions section Non-emergency contact: Primary Care Provider, Specialist and Oncologist Call non-emergency contact if: you have any medication questions and your symptoms worsen Follow-up/Referrals: Rakel Castillo MD [Outside Practitioners] - (Date & Time 02/02/2025 10:00 AM Provider: Rakel Castillo MD Palliative Medicine [facility] ) Favian Castellon DO [Primary Care Provider] - (Date & Time 01/27/2025 8:00 AM Provider: Favian Castellon DO Family Practice [facility] ) Eleuterio Zapata MD [Hospitalist] - (Date & Time 02/02/2025 10:30 AM Provider: Eleuterio Zapata MD Hematology/Oncology [facility] ) Diet: Regular Addtl Attending Provider Instructions: Follow up with your primary care physician, oncologist and palliative doctor. Make sure to stay well hydrated. Do not take losartan - HCTZ until you discuss with your primary care doctor or oncologist. Pending Studies at Discharge: No Stand-Alone Forms: [employer], Smoking Cessation Medications and DC Order Prescriptions: Continued urea 20 % cream 1 applic topical BID PRN (Reason: Other) insulin glargine [Lantus U-100 Insulin] 100 unit/mL solution 30 unit subcut HS (DME) FreeStyle Precision Humza Strips strip See Dose Instructions .ROUTE .MEDSUPPLY Qty: 6 3RF Dose Instruction: As directed Rx Instructions: test 3 times daily as needed to calibrate meter (DME) FreeStyle Adán 14 Day [place]ier Misc See Dose Instructions .ROUTE .MEDSUPPLY Qty: 1 0RF Dose Instruction: As directed Rx Instructions: For use with FreeStyle Adán 14 Day Sensors (DME) FreeStyle Adán 14 Day Sensor Kit See Dose Instructions .ROUTE .MEDSUPPLY Qty: 7 3RF Dose Instruction: As directed Rx Instructions: For use with FreeStyle Adán 14 day Rainier Device dexamethasone 4 mg tablet 4 mg PO Q12H Qty: 30 2RF (DME) pen needle, diabetic [BD Ultra-Fine Kamala Pen Needle] 32 gauge x 5/32" needle See Dose Instructions .ROUTE .MEDSUPPLY Qty: 10 Rx Instructions: Inject insulin 4 times a day (DME) Ketostix strip See Dose Instructions .ROUTE .MEDSUPPLY Qty: 25 Rx Instructions: Test urine 2-3 times a day Novolog FlexPen U-100 Insulin 100 unit/mL (3 mL) insulin pen 5 - 25 units SQ UD Patient Comments: 45 unit SQ Breakfast =5 and Lunch = 15 units, Dinner = 25 units plus sliding scale ; Rx Instructions: 5 units in am; 15 units lunch; 25 units at dinner (DME) lancets [OneTouch Delica Lancets] 33 gauge misc See Dose Instructions .ROUTE .MEDSUPPLY Qty: 100 Rx Instructions: Test blood sugars 2 times day ergocalciferol (vitamin D2) 50,000 unit capsule 50,000 units PO WEEKLY Qty: 14 Patient Comments: takes on Fridays Rx Instructions: Takes on Fridays aspirin [Karrie Low Dose Aspirin] 81 mg Tablet,Delayed Release (Dr/Ec) 81 mg PO QAM levothyroxine 100 mcg tablet 100 mcg PO QAM Patient Comments: 100 mcg PO TAKE ON AN EMPTY STOMACH WITH A FULL GLASS OF WATER, WAIT 30 MINUTES TO EAT, DRINK, OR TAKE MEDICATIONS; Rx Instructions: 100 mcg PO TAKE ON AN EMPTY STOMACH WITH A FULL GLASS OF WATER, WAIT 30 MINUTES TO EAT, DRINK, OR TAKE MEDICATIONS; atorvastatin 80 mg tablet 80 mg PO PM atenolol 25 mg Tablet 25 mg PO QAM levetiracetam 500 mg tablet 500 mg PO BID morphine 15 mg tablet 15 mg PO Q4H PRN (Reason: Pain) memantine 5 mg tablet 5 mg PO UD Rx Instructions: per son, he thinks she's titrated up to 2 tablets po bid. Titration upward. Instruction sheet given. Instruction sheet faxed to the pharmacy. acetaminophen 500 mg Tablet 1,000 mg PO Q8H PRN (Reason: Pain) omeprazole 20 mg capsule,delayed release(DR/EC) 20 mg PO DAILY Mounjaro 12.5 mg/0.5 mL pen injector 12.5 mg SUBCUT WK Rx Instructions: takes on Fridays sennosides 8.6 mg Tablet 8.6 mg PO BID Held losartan-hydrochlorothiazide 100-25 mg Tablet 1 tab PO PM Hold Instructions: Resume on 01/24/25. discuss w/ your primary care doctor or oncologist before resuming Discharge Orders: Discharge Order (Routine); Ordered 01/22/25 Ordered By: Ric Rivera Admission Data Admit Date/Time: 01/19/25 18:46 Attending Provider: Ric Rivera Admit Provider: Frances Hebert Primary Care Provider: Favian Castellon Other Providers: Frances Hebert; Alonzo Ly
[2025-01-22 11:40] VITALS: BP 134/80; TEMP 98.1; O2SAT 95
[2025-01-22 11:51] VITALS: PULSE 96
== END 2025-01-22 13:59 | disposition home or self-care (01) | DRG 641 ==
LOC: ED 11:38 → SUATTDRO 18:46 → 2N 18:46

== ENCOUNTER 2025-01-26 06:41 | Inpatient (IN) ==
--- NOTE | 2025-01-26 07:04 | Emergency Department Note ---
Impression & Plan Bowel perforation, Metastatic cancer, Acute hyponatremia ED Provider Note NAME: ARCELIA BARBOSA AGE: 69 SEX: F : 1955 ARRIVES VIA: Walk-In INFORMANT: Patient ED PROVIDER(S): Prosper Jackson DO CHIEF COMPLAINT: Abdominal pain HPI: Patient is a 69-year-old female with a PMH HTN, DM II, hypothyroidism, breast cancer in 2022 s/p bilateral mastectomy, recently diagnosed with metastasis to spine, pelvis, liver, spleen, lungs, brain presented to ER for abdominal pain associated with nausea and the inability to vomit. She notes she has been unable to have a bowel movement. She denies any headache or change in vision. Symptoms have significantly worsened since 4 AM this morning but has really been present for the past 4 days. She denies any dysuria, urgency, or frequency. She has not does not feel she is urinating much as she is not eating or drinking. ADDITIONAL HISTORY OBTAINED: present at bedside notes that he cannot care for her currently and he needs help as she is having too much pain Chronic Medical/Social Conditions Affecting Care: Per HPI PAST MEDICAL HISTORY:See Below PAST SURGICAL HISTORY:See Below FAMILY HISTORY:See Below SOCIAL HISTORY:See Below HOME MEDICATIONS:See Below ALLERGIES:See Below VITALS:See Below PHYSICAL EXAMINATION: GENERAL: Sitting up in bed, alert, well appearing, well nourished, no distress, non-toxic EYE EXAM: normal conjunctiva. OROPHARYNX: no exudate, no erythema, lips, buccal mucosa, and tongue normal and mucous membranes are moist NECK: supple, no nuchal rigidity, no adenopathy, non-tender LUNGS: Clear to auscultation. Normal chest wall mechanics HEART: no murmurs, S1 normal and S2 normal ABDOMEN: abdomen soft, non-tender, normo-active bowel sounds, no masses, no rebound or guarding. UPPER EXTREMITIES: upper extremities are grossly normal. LOWER EXTREMITIES: No pitting edema. NEURO EXAM: Normal sensorium, cranial nerves II-XII grossly intact, normal speech, no gross weakness of arms, no gross weakness of legs. MEDICAL DECISION MAKING: Patient is a 69-year-old female who presents to the ER for the above-stated complaint. IV was established and blood work was obtained. Labs showed no significant leukocytosis or anemia. BMP with a with a mild hyponatremia at 134. Bilirubin was unremarkable. LFTs were unremarkable. Lipase was normal. UA was clean. CT abdomen pelvis suggested a microperforation. This was discussed with general surgery who did evaluate the patient. Discussed case with the hospitalist for further evaluation management treatment. She was given multiple doses of IV narcotics as well as IV Zosyn. Patient was updated admitted to the hospital for microperforation. Consults/Care Managements Discussions: Per MDM Triage Nursing notes reviewed. Limited review of prior medical records performed Vital Signs: reviewed and remarkable for no significant abnormalities Differential diagnosis: Differential diagnoses includes but is not limited to gastritis, peptic ulcer disease, GERD, gallbladder disease, pancreatitis, small bowel obstruction, appendicitis, diverticulitis, hernia, urinary tract infection, torsion, perforation, trauma, infectious. ER treatment provided: See below Diagnostics interpreted by me include EKG and cardiac monitoring as listed below: -Cardiac Monitoring: An order was placed for continuous cardiac monitoring. The monitor shows a rate of 90 with sinus rhythm. -ECG: none -Laboratory studies:Interpreted by me as stated above in MDM and shown below. Imaging studies: Xrays: As interpreted by me:none CTs show: CT abdomen pelvis per my preliminary interpretation shows no obvious bowel obstruction CT abdomen pelvis per radiologist described above Procedures:none Critical Care: None Past Med/Surg History Problem List (Updated 01/26/25 @ 12:55 by Prosper Jackson DO) Acute hyponatremia (Acute) Metastatic cancer (Acute) Bowel perforation (Acute) Enteritis Nausea (Acute) Constipation (Acute) Metastatic breast cancer (Acute) Metastasis to spinal column (Acute) Intractable back pain (Acute) Breast cancer metastasized to brain (Acute 12/30/24) Obesity Diabetes (Chronic) Hypertension (Chronic) Dyslipidemia Hypothyroidism Diabetes type 2, uncontrolled 06/24/23 Ha1c: 8.2% Medical History (Updated 01/26/25 @ 12:55 by Prosper Jackson DO) Diarrhea Nausea & vomiting Acute dehydration Malignant neoplasm of upper-outer quadrant of left breast in female, estrogen receptor negative (06/24/23) Cancer of left breast Tremor pt saw neuro 08/2023. tremor is mild; b/l hands and head. 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 Robi Geiger History of dilatation and curettage History of breast biopsy (06/24/23) Left History of colonoscopy History of tooth extraction History of cataract surgery bilat History of tonsillectomy Hx of laparoscopic gastric banding Family History Mother , Passed Age 90 Breast cancer, Onset Age: 75 Lumpectomy and RT Father No problems noted. Brother No problems noted. Brother No problems noted. Brother No problems noted. Sister No problems noted. Sister No problems noted. Son No problems noted. 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 [employer] How many Children do You have: 1 Feels Safe at Home: Yes Childhood Exposure to Second-Hand Smoke: No Diet: regular caffeine: Yes during the past year weight has: remained stable Dental Care, Regularly: Yes Assistive Devices: Cane and Walker Allergies Allergies Allergy/AdvReac Type Severity Reaction Status Date / Time No Known Allergies Allergy Verified 01/03/25 09:48 Home Meds Home Medications Medication Instructions Recorded Confirmed acetone (urine) test (Ketostix #25 ea 05/11/19 01/10/25 strips) atorvastatin 80 mg tablet 80 mg PO PM 05/11/19 01/26/25 ergocalciferol (vitamin D2) 1,250 50,000 units PO WEEKLY #14 caps 05/11/19 01/26/25 mcg (50,000 unit) capsule insulin aspart U-100 100 unit/mL 5 - 25 units subcut UD 05/11/19 01/26/25 (3 mL) subcutaneous pen (Novolog FlexPen U-100 Insulin aspart) lancets 33 gauge (OneTouch Delica #100 ea 05/11/19 01/10/25 Lancets) levothyroxine 100 mcg tablet 100 mcg PO QAM 05/11/19 01/26/25 pen needle, diabetic 32 gauge x #10 ea 05/11/19 01/10/2532" (BD Ultra-Fine Kamala Pen Needle) aspirin 81 mg tablet,delayed 81 mg PO QAM 08/07/19 01/26/25 release (Karrie Low Dose Aspirin) atenolol 25 mg tablet 25 mg PO QAM 08/08/23 01/26/25 losartan 100 1 tab PO PM 08/08/23 01/26/25 mg-hydrochlorothiazide 25 mg tablet urea 20 % topical cream 1 applic topical BID PRN Other 02/24/24 01/26/25 insulin glargine 100 unit/mL 30 unit subcut HS 01/03/25 01/26/25 subcutaneous solution (Lantus U-100 Insulin) acetaminophen 500 mg tablet 1,000 mg PO Q8H PRN Pain 01/19/25 01/26/25 levetiracetam 500 mg tablet 500 mg PO BID 01/19/25 01/26/25 memantine 5 mg tablet 5 mg PO UD Memory 01/19/25 01/26/25 morphine 15 mg immediate release 15 mg PO Q4H PRN Severe Pain 01/19/25 01/26/25 tablet (Scale Score 7-10) omeprazole 20 mg capsule,delayed 20 mg PO DAILY 01/19/25 01/26/25 release sennosides 8.6 mg tablet 8.6 mg PO BID 01/19/25 01/26/25 tirzepatide 12.5 mg/0.5 mL 12.5 mg subcut WK 01/19/25 01/26/25 subcutaneous pen injector ([place]) Previous Rx's Medication Instructions Recorded blood sugar diagnostic (FreeStyle #6 Boxes 05/21/19 Precision Humza Strips) FreeStyle Adán 14 Day Diggs #1 ea 02/17/20 (flash glucose scanning reader) FreeStyle Adán 14 Day Sensor #7 ea 02/17/20 (flash glucose sensor) dexamethasone 4 mg tablet 4 mg PO Q12H #30 tabs 01/17/25 metoclopramide HCl 10 mg tablet 10 mg PO QID 7 days #28 tabs 01/25/25 (Reglan) promethazine 25 mg rectal 25 mg DC Q6H PRN nausea and 01/25/25 suppository vomiting #12 ea Results & Data (ED) Vital Signs Vital Signs - 24 hr 01/26/25 06:43 01/26/25 07:42 01/26/25 08:15 Temperature 36.4 C L Temperature Source Temporal Artery Scan Pulse Rate 91 H 96 H Pulse Rate from SpO2 Sensor 96 H Respiratory Rate 18 15 Blood Pressure 130/89 Blood Pressure Mean 102 Pulse Oximetry 99 97 95 Oxygen Delivery Method Room Air Room Air Sepsis Recent Fever Within 48 Hours No Sepsis New/Unexplained Change in Mental Status No Sepsis Action Taken by Nursing No Action Required 01/26/25 08:18 01/26/25 08:24 01/26/25 08:33 Temperature Temperature Source Pulse Rate 88 94 H 95 H Pulse Rate from SpO2 Sensor 95 H 95 H Respiratory Rate 14 15 Blood Pressure Blood Pressure Mean Pulse Oximetry 93 94 Oxygen Delivery Method Sepsis Recent Fever Within 48 Hours Sepsis New/Unexplained Change in Mental Status Sepsis Action Taken by Nursing 01/26/25 08:48 01/26/25 08:49 01/26/25 08:49 Temperature Temperature Source Pulse Rate 94 H Pulse Rate from SpO2 Sensor 94 H Respiratory Rate 14 Blood Pressure 141/83 H 141/83 H Blood Pressure Mean 92 92 Pulse Oximetry 96 Oxygen Delivery Method Sepsis Recent Fever Within 48 Hours Sepsis New/Unexplained Change in Mental Status Sepsis Action Taken by Nursing 01/26/25 09:00 01/26/25 09:18 01/26/25 09:24 Temperature Temperature Source Pulse Rate 93 H 92 H 92 H Pulse Rate from SpO2 Sensor 93 H 91 H 92 H Respiratory Rate 13 13 13 Blood Pressure Blood Pressure Mean Pulse Oximetry 94 95 95 Oxygen Delivery Method Sepsis Recent Fever Within 48 Hours Sepsis New/Unexplained Change in Mental Status Sepsis Action Taken by Nursing 01/26/25 09:30 01/26/25 09:51 01/26/25 10:36 Temperature Temperature Source Pulse Rate 91 H 95 H 77 Pulse Rate from SpO2 Sensor 92 H 94 H 79 Respiratory Rate 13 13 Blood Pressure Blood Pressure Mean Pulse Oximetry 96 95 95 Oxygen Delivery Method Sepsis Recent Fever Within 48 Hours Sepsis New/Unexplained Change in Mental Status Sepsis Action Taken by Nursing 01/26/25 10:42 01/26/25 11:00 01/26/25 11:12 Temperature Temperature Source Pulse Rate 86 105 H 83 Pulse Rate from SpO2 Sensor 83 Respiratory Rate 15 19 Blood Pressure Blood Pressure Mean Pulse Oximetry 96 Oxygen Delivery Method Sepsis Recent Fever Within 48 Hours Sepsis New/Unexplained Change in Mental Status Sepsis Action Taken by Nursing 01/26/25 11:30 01/26/25 11:42 01/26/25 11:57 Temperature Temperature Source Pulse Rate 86 87 86 Pulse Rate from SpO2 Sensor 87 87 86 Respiratory Rate 17 12 18 Blood Pressure Blood Pressure Mean Pulse Oximetry 94 94 96 Oxygen Delivery Method Sepsis Recent Fever Within 48 Hours Sepsis New/Unexplained Change in Mental Status Sepsis Action Taken by Nursing 01/26/25 12:09 01/26/25 12:09 01/26/25 12:15 Temperature Temperature Source Pulse Rate 86 82 84 Pulse Rate from SpO2 Sensor 83 84 Respiratory Rate 15 17 Blood Pressure Blood Pressure Mean Pulse Oximetry 97 96 Oxygen Delivery Method Sepsis Recent Fever Within 48 Hours Sepsis New/Unexplained Change in Mental Status Sepsis Action Taken by Nursing 01/26/25 12:24 Temperature Temperature Source Pulse Rate 82 Pulse Rate from SpO2 Sensor 81 Respiratory Rate 20 Blood Pressure Blood Pressure Mean Pulse Oximetry 96 Oxygen Delivery Method Sepsis Recent Fever Within 48 Hours Sepsis New/Unexplained Change in Mental Status Sepsis Action Taken by Nursing Laboratory Data 01/26/25 07:32 01/26/25 07:32 Lab Results 01/26/25 01/26/25 01/26/25 Range/Units 07:32 07:40 11:03 WBC 7.02 (4.8-10.8) K/ul RBC 5.11 (4.20-5.40) M/uL Hgb 13.8 (12.0-16.0) g/dl POC Hgb 15.3 (12.0-16.0) g/dl Hct 42.5 (37.0-47.0) % POC Hct 45 (37-47) % MCV 83.2 (80.0-100.0) fL MCH 27.0 (25.0-34.0) pg MCHC 32.5 (32.0-36.0) g/dL RDW Std Deviation 48.0 H (36.4-46.3) fL RDW Coeff of El 16.1 H (11.5-14.5) % Plt Count 391 (130-400) K/uL MPV 9.2 L (9.4-12.4) fL Immature Gran % (Auto) 1.0 % Neut % (Auto) 91.1 % Lymph % (Auto) 3.7 % [place] % (Auto) 3.1 % Eos % (Auto) 1.0 % Baso % (Auto) 0.1 % Neut # (Auto) 6.39 (1.40-6.50) K/uL Lymph # (Auto) 0.26 L (1.20-3.40) K/uL [place] # (Auto) 0.22 (0.11-0.59) K/uL Eos # (Auto) 0.07 (0.00-0.50) K/uL Baso # (Auto) 0.01 (0.00-0.20) K/uL Immature Gran # (Auto) 0.07 (0.01-0.20) K/uL Toxic Vacuolation 2+ Polychromasia 1+ POC Sodium 133 L (135-144) mmol/L Sodium 134 L (136-145) mmol/L POC Potassium 4.2 (3.3-5.0) mmol/L Potassium 4.3 (3.5-5.1) mmol/L POC Chloride 96 L (101-112) mmol/L Chloride 95 L (98-107) mmol/L Carbon Dioxide 31 (21-32) mmol/L POC Total CO2 26 (24-31) mmol/L Anion Gap 8 (3-11) POC Anion Gap 17.0 (16-25) mmol/L POC BUN 28 H (7-18) mg/dl BUN 26 H (6-23) mg/dl Creatinine 0.92 (0.6-1.2) mg/dl POC Creatinine 1.0 (0.6-1.3) mg/dl Est Cr Clr Drug Dosing Not Reportable eGFR 68.25 BUN/Creatinine Ratio 28.3 H (10-20) Glucose 183 H (70-99(Fasting)) mg/dl POC Glucose (other) 189 H (70-99) mg/dl Calcium 9.8 (8.6-10.3) mg/dl POC Ioniz Calcium Kaylynn 1.12 (1.12-1.32) mmol/l Total Bilirubin 0.8 (0.2-1.0) mg/dl AST 60 H (13-39) U/L ALT 65 H (7-52) U/L Alkaline Phosphatase 282 H (34-104) U/L Total Protein 8.2 (6.0-8.3) gm/dl Albumin 4.1 (3.4-5.0) gm/dl Globulin 4.1 H (2.5-4.0) gm/dl Albumin/Globulin Ratio 1.0 (0.9-2) Lipase 33 (11-82) U/L Urine Color Yellow Urine Appearance Clear (Clear) Urine pH 7.0 (4.5-7.5) Ur Specific Midnight > 1.045 H (1.000-1.030) Urine Protein Negative (Negative) Urine Glucose (UA) Negative (Negative) Urine Ketones Negative (Negative) Urine Blood Negative (Negative) Urine Nitrite Negative (Negative) Urine Bilirubin Negative (Negative) Urine Urobilinogen Negative (Negative) Ur Leukocyte Esterase Negative (Negative) Administered Medications Discontinued Medications Bisacodyl (Bisacodyl 10 Mg Supp) 10 mg DC NOW ONE Stop: 01/26/25 11:31 Last Admin: 01/26/25 12:27 Dose: Not Given Documented By: CHERY Dexamethasone (Dexamethasone 4 Mg Tab) 4 mg PO NOW ONE Stop: 01/26/25 11:18 Last Admin: 01/26/25 11:57 Dose: 4 mg Documented By: CHERY Sodium Chloride (Nss) 1,000 mls @ 999 mls/hr IV .Q1H1M JODY Stop: 01/26/25 09:15 Last Admin: 01/26/25 08:47 Dose: 999 mls/hr Documented By: Infusion: 01/26/25 08:42 Dose: Infused Documented By: Admin: 01/26/25 07:34 Dose: 999 mls/hr Documented By: CHERY Piperacillin Sod/Tazobactam Sod (Zosyn) 4.5 gm in 100 mls @ 200 mls/hr IV NOW ONE; Protocol Stop: 01/26/25 09:10 Last Infusion: 01/26/25 09:30 Dose: Infused Documented By: Admin: 01/26/25 08:47 Dose: 200 mls/hr Documented By: CHERY Pantoprazole Sodium (Protonix) 40 mg in 10 mls @ 5 mls/min IV NOW ONE Stop: 01/26/25 11:18 Last Admin: 01/26/25 11:57 Dose: 5 mls/min Documented By: CHERY Ioversol (Optiray 320 100ml) 94 ml IV ONCE ONE Stop: 01/26/25 08:00 Last Admin: 01/26/25 07:59 Dose: 94 ml Documented By: BETZAIDA Levetiracetam (Levetiracetam Oral Soln 100mg/Ml) 500 mg PO NOW ONE Stop: 01/26/25 11:19 Last Admin: 01/26/25 11:56 Dose: 500 mg Documented By: CHERY Morphine Sulfate (Morphine Sulfate 4 Mg/Ml 1 Ml Carp\\Vial) 4 mg IV NOW STA Stop: 01/26/25 07:03 Last Admin: 01/26/25 07:34 Dose: 4 mg Documented By: CHERY Morphine Sulfate (Morphine Sulfate 10 Mg/Ml Carp/Vial) 6 mg IV NOW STA Stop: 01/26/25 08:24 Last Admin: 01/26/25 08:28 Dose: 6 mg Documented By: CHERY Ondansetron HCl (Ondansetron Inj 2 Mg/Ml 2 Ml Vial) 4 mg IV NOW STA Stop: 01/26/25 07:03 Last Admin: 01/26/25 07:34 Dose: 4 mg Documented By: CHERY Sennosides (Senna 8.6 Mg Tab) 8.6 mg PO BID JODY Stop: 02/25/25 11:29 Last Admin: 01/26/25 11:57 Dose: 8.6 mg Documented By: CHERY Imaging Data Radiologist's Impression: Abdomen/Pelvis CT 01/26/25 07:[address] WITH IV CONTRAST CT DOSE: 912.84 mGy.cm HISTORY: Acute generalized abdominal pain worsening abd pain w/ cancer no BM TECHNIQUE: Multiaxial CT images of the abdomen and pelvis were performed following the IV administration of 94 cc of Optiray, A dose lowering technique was utilized adhering to the principles of ALARA. COMPARISON STUDY: 01/24/2025, outside hospital PET/CT from 12/29/2024 FINDINGS: Cardiomegaly with coronary artery calcifications. Partially imaged lower thoracic lymphatic and pulmonary metastasis redemonstrated which are unchanged from the study from 48 hours earlier.r 1.8 cm metastatic nodules in the left lower lobe on image 21 previously measured 1.7 cm on the prior PET/CT. Right lower lobe mucus plugging again noted along with linear right basilar consolidation and small right pleural effusion. No pneumatosis or pneumoperitoneum. 2 cm hypodense focus in the spleen on image 64 series 3 suggestive of metastasis again noted. Mild to moderate atrophy of the pancreas. Unchanged small nodular foci of the adrenal glands again noted measuring up to approximately a centimeter. Cholelithiasis without CT evidence of acute cholecystitis. Multifocal hepatic metastasis again noted. Dominant 4 similar left hepatic lobe lesion on image 122 generally unchanged from the prior PET/CT. Patency of the hepatic and portal veins. Numerous hypodense foci of the kidneys are unchanged, most which are too small to characterize. A 1.7 cm lesion within the inferior pole left kidney appears to demonstrate enhancement. Renal metastasis again are differential consideration. No hydronephrosis. Indeterminate 9 mm hypodense lesion within the posterior uterus on image 242 was hypermetabolic on the prior study. No abdominal aortic aneurysm. Unchanged necrotic lymphatic metastasis of the upper abdomen. Distal esophageal wall thickening. No bowel obstruction. Colonic diverticulosis without acute diverticulitis. Moderate fecal retention of the ascending and transverse colon. Normal appendix. There is mild wall thickening noted involving a loop of jejunum within the abdominal quadrant with adjacent inflammatory stranding, image 92 series 3. Additionally, there are a few locules of eccentrically located air which appear to be outside of the lumen on image 82 series 3. Partially calcified 2.6 cm nodular focus within the subcutaneous anterior abdominal wall again noted. Additionally, there are several subcentimeter subcutaneous nodular foci within the intra-abdominal wall likely representing additional metastasis. He is also unchanged. Multifocal osseous metastasis again noted without acute pathologic fracture. Pathologic fracture of the lateral left ninth rib however has progressed from the prior PET/CT. A few scattered subcentimeter metastatic omental/peritoneal nodules are also again seen. IMPRESSION: 1. Findings compatible with a mild nonspecific enteritis involving a loop of jejunum within the abdominal left upper quadrant. Additionally, there are a few locules of adjacent air which appear to be outside of the lumen suggestive of associated microperforation. 2. Extensive metastatic disease redemonstrated as above. 3. Colonic diverticulosis without acute diverticulitis. 4. Moderate fecal retention within the ascending and transverse colon. 5. Pathologic fracture lateral left ninth rib is again noted which has progressed from the 12/29/2024 PET/CT. ACT 112: Negative or not required by law. The above report was generated using voice recognition software. It may contain grammatical, syntax or spelling errors. Electronically signed by: Hola Lei M.D. 01/26/2025 8:29 AM Discharge Plan Visit Data Chief Complaint: Unable to Void Stated Complaint: VOMITING, CANCER, UNABLE TO VOID, PAIN GENERALIZED ED Provider: Prosper Jackson Discharge Problem: Bowel perforation, Metastatic cancer, Acute hyponatremia Forms Stand Alone Forms: [facility] [employer] Prescriptions Prescriptions: No Action urea 20 % cream 1 applic topical BID PRN (Reason: Other) insulin glargine [Lantus U-100 Insulin] 100 unit/mL solution 30 unit subcut HS (DME) FreeStyle Precision Humza Strips strip See Dose Instructions .ROUTE .MEDSUPPLY Qty: 6 3RF Dose Instruction: As directed Rx Instructions: test 3 times daily as needed to calibrate meter (DME) FreeStyle Adán 14 Day Diggs Misc See Dose Instructions .ROUTE .MEDSUPPLY Qty: 1 0RF Dose Instruction: As directed Rx Instructions: For use with FreeStyle Aádn 14 Day Sensors (DME) FreeStyle Adán 14 Day Sensor Kit See Dose Instructions .ROUTE .MEDSUPPLY Qty: 7 3RF Dose Instruction: As directed Rx Instructions: For use with FreeStyle Adán 14 day Diggs Device dexamethasone 4 mg tablet 4 mg PO Q12H Qty: 30 2RF Rx Instructions: Start Date 01/17/25 x15 day supply (DME) pen needle, diabetic [BD Ultra-Fine Kamala Pen Needle] 32 gauge x 32" needle See Dose Instructions .ROUTE .MEDSUPPLY Qty: 10 Rx Instructions: Inject insulin 4 times a day (DME) Ketostix strip See Dose Instructions .ROUTE .MEDSUPPLY Qty: 25 Rx Instructions: Test urine 2-3 times a day Novolog FlexPen U-100 Insulin 100 unit/mL (3 mL) insulin pen 5 - 25 units SQ UD Patient Comments: 45 unit SQ Breakfast =5 and Lunch = 15 units, Dinner = 25 units plus sliding scale ; Rx Instructions: Last filled 09/10/2024 x84 day supply5 units in am; 15 units lunch; 25 units at dinner (DME) lancets [OneTouch Delica Lancets] 33 gauge misc See Dose Instructions .ROUTE .MEDSUPPLY Qty: 100 Rx Instructions: Test blood sugars 2 times day ergocalciferol (vitamin D2) 50,000 unit capsule 50,000 units PO WEEKLY Qty: 14 Patient Comments: takes on Fridays Rx Instructions: Last filled 08/19/2024 x90 day supply aspirin [Karrie Low Dose Aspirin] 81 mg Tablet,Delayed Release (Dr/Ec) 81 mg PO QAM Rx Instructions: Unable to verify OTC meds at this date/time. levothyroxine 100 mcg tablet 100 mcg PO QAM Patient Comments: 100 mcg PO TAKE ON AN EMPTY STOMACH WITH A FULL GLASS OF WATER, WAIT 30 MINUTES TO EAT, DRINK, OR TAKE MEDICATIONS; Rx Instructions: Last filled 09/11/2024 x90 day supply. 100 mcg PO TAKE ON AN EMPTY STOMACH WITH A FULL GLASS OF WATER, WAIT 30 MINUTES TO EAT, DRINK, OR TAKE MEDICATIONS; atorvastatin 80 mg tablet 80 mg PO PM Rx Instructions: Last filled 09/10/2024 x90 day supply atenolol 25 mg Tablet 25 mg PO QAM Rx Instructions: Last filled 09/11/2024 x90 day supply losartan-hydrochlorothiazide 100-25 mg Tablet 1 tab PO PM Hold Instructions: Resume on 01/24/25. discuss w/ your primary care doctor or oncologist before resuming levetiracetam 500 mg tablet 500 mg PO BID morphine 15 mg tablet 15 mg PO Q4H PRN (Reason: Severe Pain (Scale Score 7-10)) Rx Instructions: Start Date 01/15/25 x3 day supply memantine 5 mg tablet 5 mg PO UD Rx Instructions: Filled 01/03/25 x18 day supply - per son, he thinks she's titrated up to 2 tablets po bid. Titration upward. Instruction sheet given. Instruction sheet faxed to the pharmacy. acetaminophen 500 mg Tablet 1,000 mg PO Q8H PRN (Reason: Pain) Rx Instructions: Unable to verify OTC meds at this date/time. omeprazole 20 mg capsule,delayed release(DR/EC) 20 mg PO DAILY Mounjaro 12.5 mg/0.5 mL pen injector 12.5 mg SUBCUT WK Rx Instructions: takes on Fridays sennosides 8.6 mg Tablet 8.6 mg PO BID Rx Instructions: Unable to verify OTC meds at this date/time. promethazine 25 mg suppository 25 mg DC Q6H PRN (Reason: nausea and vomiting) Qty: 12 0RF metoclopramide HCl [Reglan] 10 mg tablet 10 mg PO QID 7 Days Qty: 28 0RF Referrals Referrals: Favian Castellon DO [Primary Care Provider] - Discharge Problem: Metastatic cancer Qualifiers: Area of secondary neoplastic involvement: unspecified site Qualified Code(s): C 79.9 - Secondary malignant neoplasm of unspecified site
[2025-01-26] MEDS: SODIUM CHLORIDE 0.9% 1,000 ML IV SCH (07:34)
[2025-01-26] MEDS: MoRPHine SULFATE 4 MG/ML 1 ML CARP\\VIAL IV STA (07:34)
[2025-01-26] MEDS: ONDANSETRON INJ 2 MG/ML 2 ML VIAL IV STA (07:34)
[2025-01-26 07:48] LABS: Hematocrit (blood only) 42.5 % (37.0-47.0); Hemoglobin 13.8 g/dl (12.0-16.0); Mean Corpuscular Hgb Conc 32.5 g/dL (32.0-36.0); Mean Corpuscular Volume 83.2 fL (80.0-100.0); Mean Platelet Volume 9.2 fL (9.4-12.4); Platelet Count 391 K/uL (130-400); RDW Coefficient of Variation 16.1 % (11.5-14.5); Red Blood Count 5.11 M/uL (4.20-5.40); White Blood Count 7.02 K/ul (4.8-10.8)
[2025-01-26 07:52] LABS: iSTAT Hemoglobin 15.3 g/dl (12.0-16.0); iSTAT Ionized Calcium 1.12 mmol/l (1.12-1.32); iSTAT Potassium 4.2 mmol/L (3.3-5.0)
[2025-01-26] MEDS: OPTIRAY 320 100ml IV ONE (07:59)
[2025-01-26 08:13] LABS: Basophils # (auto) 0.01 K/uL (0.00-0.20); Basophils % (auto) 0.1 %; Eosinophils # (auto) 0.07 K/uL (0.00-0.50); Immature Granulocytes # (auto) 0.07 K/uL (0.01-0.20); Lymphocytes # (auto) 0.26 K/uL (1.20-3.40); Lymphocytes % (auto) 3.7 %; Monocytes # (auto) 0.22 K/uL (0.11-0.59); Monocytes % (auto) 3.1 %; Neutrophils # (auto) 6.39 K/uL (1.40-6.50); Neutrophils % (auto) 91.1 %; Polychromasia 1+; Toxic Vacuolation 2+
[2025-01-26 08:20] LABS: Albumin Level 4.1 gm/dl (3.4-5.0); Anion Gap 8 (3-11); Bilirubin,Total 0.8 mg/dl (0.2-1.0); Calcium 9.8 mg/dl (8.6-10.3); Carbon Dioxide 31 mmol/L (21-32); Chloride 95 mmol/L (98-107); Potassium 4.3 mmol/L (3.5-5.1); Sodium 134 mmol/L (136-145)
[2025-01-26 08:27] LABS: Alanine Aminotransferase 65 U/L (7-52); Alkaline Phosphatase 282 U/L (34-104); Aspartate Aminotransferase 60 U/L (13-39); BUN Creatinine Ratio 28.3 (10-20); Blood Urea Nitrogen 26 mg/dl (6-23); Globulin 4.1 gm/dl (2.5-4.0); Glucose 183 mg/dl (70-99(Fasting)); Lipase 33 U/L (11-82); Total Protein 8.2 gm/dl (6.0-8.3)
[2025-01-26] MEDS: MoRPHine SULFATE 10 MG/ML CARP/VIAL IV STA (08:28)
--- NOTE | 2025-01-26 08:30 | CT Scan Report ---
ABDOMEN AND PELVIS CT WITH IV CONTRAST CT DOSE: 912.84 mGy.cm HISTORY: Acute generalized abdominal pain worsening abd pain w/ cancer no BM TECHNIQUE: Multiaxial CT images of the abdomen and pelvis were performed following the IV administrat ion of 94 cc of Optiray, A dose lowering technique was utilized adhering to the principles of ALARA. COMPARISON STUDY: 01/24/2025, outside hospital PET/CT from 12/29/2024 FINDINGS: Cardiomegaly with coronary artery calcifications. Partially imaged lower thoracic lymphatic and pulmonary metastasis redemonstrated which are unchanged from the study from 48 hours earlier.r 1 .8 cm metastatic nodules in the left lower lobe on image 21 previously measured 1.7 cm on the prior P ET/CT. Right lower lobe mucus plugging again noted along with linear right basilar consolidation and small right pleural effusion. No pneumatosis or pneumoperitoneum. 2 cm hypodense focus in the spleen on image 64 series 3 suggestive of metastasis again noted. Mild to moderate atrophy of the pancreas. Unchanged small nodular foci of the adrenal glands again noted corazon suring up to approximately a centimeter. Cholelithiasis without CT evidence of acute cholecystitis. M ultifocal hepatic metastasis again noted. Dominant 4 similar left hepatic lobe lesion on image 122 ge nerally unchanged from the prior PET/CT. Patency of the hepatic and portal veins. Numerous hypodense foci of the kidneys are unchanged, most which are too small to characterize. A 1.7 cm lesion within the inferior pole left kidney appears to demonstrate enhancement. Renal metastasis again are differential consideration. No hydronephrosis. Indeterminate 9 mm hypodense lesion within t he posterior uterus on image 242 was hypermetabolic on the prior study. No abdominal aortic aneurysm. Unchanged necrotic lymphatic metastasis of the upper abdomen. Distal esophageal wall thickening. No bowel obstruction. Colonic diverticulosis without acute diverti culitis. Moderate fecal retention of the ascending and transverse colon. Normal appendix. There is mi ld wall thickening noted involving a loop of jejunum within the abdominal quadrant with adjacent infl ammatory stranding, image 92 series 3. Additionally, there are a few locules of eccentrically located air which appear to be outside of the lumen on image 82 series 3. Partially calcified 2.6 cm nodular focus within the subcutaneous anterior abdominal wall again noted. Additionally, there are several subcentimeter subcutaneous nodular foci within the intra-abdominal w all likely representing additional metastasis. He is also unchanged. Multifocal osseous metastasis ag ain noted without acute pathologic fracture. Pathologic fracture of the lateral left ninth rib howeve r has progressed from the prior PET/CT. A few scattered subcentimeter metastatic omental/peritoneal n odules are also again seen. IMPRESSION: 1. Findings compatible with a mild nonspecific enteritis involving a loop of jejunum within the abdom inal left upper quadrant. Additionally, there are a few locules of adjacent air which appear to be ou tside of the lumen suggestive of associated microperforation. 2. Extensive metastatic disease redemonstrated as above. 3. Colonic diverticulosis without acute diverticulitis. 4. Moderate fecal retention within the ascending and transverse colon. 5. Pathologic fracture lateral left ninth rib is again noted which has progressed from the 12/29/2024 PET/CT. ACT 112: Negative or not required by law. The above report was generated using voice recognition software. It may contain grammatical, syntax o r spelling errors. Electronically signed by: Hola Lei M.D. 01/26/2025 8:29 AM
[2025-01-26] MEDS: PIPERACILLIN/TAZOBACTAM 4.5 GM/100 ML BAG IV ONE (08:47)
--- OUTSIDE RECORDS SUMMARY | 2025-01-26 09:08 | External Medical Summary | Summary of Care ---
Author Name Unknown Organization [facility] Address [address] [facility] [place] [address] Phone [phone] Care Team Providers Care Covered Buckle Assembler Name Role Phone Favian Castellon Primary Care Provider Reason for Visit * Reason Onset Date Comments Outpatient Testing 01/12/2025 PDL1/ MyGenva r Encounter Details Date Type Department Care Team (Late st Contact Info) Description 01/12/2025 Telephone Hematology/Oncology Treatment, [place] [address] [place] [address] Eleuterio Zapata MD [address] [place] [address] Outpatient Testing (PDL1/ MyGenvar) Allergies No known active allergiesdocumented as of this encounter (statuses as of 01/25/2025) Medications B-D Ultrafine III, 5MM, Pen MISC [...] 24 Active Vitamin D (Ergocalciferol) 1.25 MG (88359 UT) Oral Capsule (Drisdol) Take 1 capsule [...] as of this encounter (statuses as of 01/25/2025) Active Problems Problem Noted Date Diagnosed Date [...] as of this encounter (statuses as of 01/25/2025) Resolved Problems Problem Noted Date Diagnosed Date [...] as of this encounter (statuses as of 01/25/2025) Immunizations Name Administration Dates Next Due COVID-19 mRNA, LNP-s, No Pre serve, 2-Dose Series (Pfizer) 08/15/2021,01/23/2021,12/29/2020 Hepatitis B, 20+ yrs 06/29/2015,01/19/2015,01/19 Pneumococcal Conjugate Vacci ne, 20-valent ([id number]) 06/27/2022 Pneumococcal Polysaccharide PPV23 (Pneumovax) 02/10/2007 Seasonal [...] of Assessment Author No 12/30/2024 3:10 AM Megna Daniels RN * Do you have serious [...] Telephone Encounter - Sabrina Robles RN - 01/25/2025 11:46 AM EDT Received message from Minoo- patient is scheduled for biopsy 02/02 at noon. Patient is currently scheduled to see Dr Zapata 02/02. Attempted to call patient to see if she wants to keep this appt as scheduled, or if she wants to reschedule for after biopsy results are back. Voicemail full on patients number, left message on husbands number. * Telephone Encounter - Sabrina Robles RN [...] return call to update her that [facility] will not be calling her until next week to schedule. Can offer to get her set up at [facility] for biopsy if she prefers. * [...] Care Team (Late st Contact Info) Description 01/27/2025 8:00 AM EDT Office Visit [facility] [address] [place] [address] Favian Castellon, [address] [place] [address] 01/28/2025 1:07 PM EDT Hospital Encounter [facility], Operating Room [facility] [address] [place], [place] [address] [phone] Thom Palomino, [address] [place] [phone] 01/28/2025 1:07 PM EDT - 01/28/2025 1:33 PM EDT Surgery [facility], Operating Room [facility] [address] [place] [address] Thom Palomino DO [address] [place] [phone] INJECTION TRANSFORAMINAL EPIDURAL LUMBAR OR SACRAL 01/31/2025 2:30 PM EDT Imaging Radiology [address] [place] [address] 02/02/2025 10:00 AM EDT Office Visit Palliative Medicine [facility] [address] [facility] [place] [address] Rakel Castillo MD [address] [place] [address] [place] [address] 02/02/2025 10:30 AM EDT Office Visit Hematology/Oncolo gy [facility] [address] [facility] [place] [phone] Eleuterio Zapata MD [address] [facility] [place] [address] 02/07/2025 10:45 AM EDT Office Visit Neurosurgery, [place] [address] [place] [address] Clinic, Brain Tumor Multidisciplinary [address] [place] [address] 03/23/2025 8:00 AM EDT Office Visit Pharmacy, [facility] [address] [facility] [place] [address] [facility] Clinic [facility] [address] [place] [address] 03/24/2025 8:40 AM EDT Office Visit Neurology [facility] [address] [facility] [place] [address] Tanya Mcpherson MD [address] [facility] [place] [address] 03/24/2025 2:00 PM EDT Scheduled Telephone Interventional Pain Center [facility] [address] [place] [phone] Po Nurse Phone Call Interventional Pain [facility] [address] [place] [address] Scheduled Procedures Name Priority Associated Diagnoses Date/Ti me INJECTION TRANSFORAMINAL EPIDURAL LUMBAR OR SACRAL Lumbar radiculopathy 01/28/2025 1:07 PM EDT COLONOSCOPY FLEXIBLE PROXIMAL DIAGNOSTIC Recall [...] this encounter Medical Devices Implanted Type Area Sweat Band Separator Device Identifier Shelf Expiration Date Model / Serial / Lot Lens 24.0 Mx60e - [id number] - [id number] Implanted:Qty : 1 on 04/30/2018 by Martin Donnelly MD at OR [facility] Left: Eye BAUSCH 01/10/2021 [id number]-49.0 / [id number] / [id number] Mx60 +23.0d Implanted:Qty : 1 on 05/12/2018 by Martin Donnelly MD at OR [facility] Right: Eye 07/12/2020 HN0164.0 / [id number] / [id number] Duraclip 16mm Xlg Repostn - [id number] Implanted:Qty : 2 on 08/23/2022 by Sudhakar Martell MD at ENDOSCOPY [facility] CONMED JESSICA 11/28/2023 [id number] / / Port Implant W/8f Poly Cath - [id number] Implanted:Qty : 1 on 09/18/2023 by Marty Quispe Jr., MD at OR [facility] BARD : PERIPHERAL VASCULAR [id number] 03/12/2025 [id number] / / [id number] documented as of this encounter Procedures Procedure Name Priority Date/Time Associated Diagnosis Comments ANATOMIC PATHOLOGY (BM/SURGICAL/CYTOLO GY) ADD ON REQUEST Routine 01/12/2025 3:17 PM EDT Breast carcinoma, female, right (HCC) Metastasis to bone (HCC) documented in this encounter Results * ANATOMIC PATHOLOGY (BM/SURGICAL/CYTOLOGY) ADD ON REQUEST (01/12/2025 3:17 PM EDT) 01/12/2025 3:17 PM EDT 01/12/2025 3:17 PM EDT Narrative LABORATORY [facility] - 01/18/2025 11:04 AM EDT Testing to be performed in house Eleuterio Zapata MD LAB BLOOD ORDERABLES Fin al Result LABORATORY [facility] [address] [place] [address] documented in this encounter Visit Diagnoses Diagnosis [...] and were consensually agreed upon. Care Teams Covered Buckle Assembler Relationship Specialty Start Date End Date Favian Castellon DO [address] [place] [address] PCP - General Family Medicine 10/21/24 documented as of this encounter
--- OUTSIDE RECORDS SUMMARY | 2025-01-26 09:08 | External Medical Summary | Summary of Care ---
Author Name Unknown Organization [facility] Address [address] [facility] [place] [address] Phone [phone] Care Team Providers Care Construction Accountant Name Role Phone Favian Castellon Primary Care Provider Reason for Visit * Reason Onset Date Comments Hospital Follow-Up 01/24/2025 [facility] 01/22 RJ call Encounter Details Date Type Department Care Team (Late st Contact Info) Description 01/24/2025 Telephone Family Practice [facility] [address] [place] [address] Treasure Larkin, RN Hospital Follow-Up ([facility] 01/22 RJ call) Allergies No known active allergiesdocumented as of this encounter (statuses as of 01/24/2025) Medications B-D Ultrafine III, 5MM, Pen MISC [...] 24 Active Vitamin D (Ergocalciferol) 1.25 MG (39510 UT) Oral Capsule (Drisdol) Take 1 capsule [...] as of this encounter (statuses as of 01/24/2025) Active Problems Problem Noted Date Diagnosed Date [...] as of this encounter (statuses as of 01/24/2025) Resolved Problems Problem Noted Date Diagnosed Date [...] as of this encounter (statuses as of 01/24/2025) Immunizations Name Administration Dates Next Due COVID-19 mRNA, LNP-s, No Pre serve, 2-Dose Series ([employer]) 08/15/2021,01/23/2021,12/29/2020 Hepatitis B, 20+ yrs 06/29/2015,01/19/2015,01/19 Pneumococcal Conjugate Vacci ne, 20-valent ([id number]) 06/27/2022 Pneumococcal Polysaccharide PPV23 (Pneumovax) 02/10/2007 Seasonal [...] encounter Miscellaneous Notes * Telephone Encounter - Treasure Larkin RN - 01/24/2025 1:38 PM EDT Transitions of Care Note Reason for Referral:Recent Admission Phone visit for follow up: RJ Admitted to: [facility], Date: 01/19 Discharged to: home, Date: 01/22 Diagnosis driving hospitalization: N/V/D in the setting of metastatic breast cancer Source/Contact: Patient SUBJECTIVE Consent: Verbal consent for review of hospital discharge: Yes REVIEW OF SYSTEMS Patient/Other Reports: Current patient/caregiver problems or concerns: nothing at this time CV: Denies problems Pulmonary: Denies problems Chills/Sweats/Fever:Denies chills/sweats Denies fever Appetite:pt still having nausea, no vomiting Current diet: as tolerated Bowel: denies problems Bladder: denies problems Wound (If applicable): N/A Pain:Denies Sleep:Denies problems FUNCTIONAL STATUS: ADL'S: Needs Assistance With:Bathing IADL'S: Needs Assistance With:Grocery Shopping, Cooking food, Routine Housework, Using telephone, Taking care of pets, Taking medications, Attending to safety, and Managing money Cognitive and Mental Health: denies problems, alert and oriented x 2, and able to communicate, understand some instructions, process some information MEDICATION RECONCILIATION Medications: No new medications or medication changes ASSESSMENT Medication Risk Assessment: No risks identified Discharge instructions available for review? Yes PLAN Symptom Monitoring Interventions:Member/caregiver education - signs and symptoms to contact PrimaryCare (DO NOT DELETE-Three rabago symptoms patient is to report to PCP) 1. N/V/D 2. Syncope/feeling dizzy 3. hypotension Spring Repairer Helper HandUnit Control Worker of Care interventions/Action Plan: Medication reconciliation and 5 - 7 day follow-up with PCP in place - Date: 01/27 Educated on role of RJ completed with patient/caregiver. Educated patient/caregiver on patient right to have input on RJ plan of care. Verification of Home Health/DME if indicated: Yes Identified Care Gaps: Yes Care Gaps closed this call: Appointment made or confirmed, Medication adherence, and Transition of Care follow-up communication Re-evaluation of Plan of Care and progress towards goals achievement: Patient education this visit: Verbal, as above Plan to follow-up as previously scheduled, instructed to call Primary Care Provider with change in symptoms or as needed before next follow-up, discharge needs met, verbalizes understanding and agrees with plan. Treasure Larkin, RN documented in this encounter Plan of Treatment Upcoming Encounters Date Type Department Care Team (Late st Contact Info) Description 01/27/2025 8:00 AM EDT Office Visit Family Practice [facility] [address] [place] [address] Favian Castellon DO [address] [place] [address] 01/28/2025 1:07 PM EDT Hospital Encounter [facility], Operating Room [facility] [address] [place], [place] [address] [phone] Thom Palomino, [address] [place] [phone] 01/28/2025 1:07 PM EDT - 01/28/2025 1:33 PM EDT Surgery [facility], Operating Room [facility] [address] [place] [address] [place] [address] Thom Palomino DO [address] [place] [phone] INJECTION TRANSFORAMINAL EPIDURAL LUMBAR OR SACRAL 01/31/2025 2:30 PM EDT Imaging Radiology [address] [place] [address] 02/02/2025 10:00 AM EDT Office Visit Palliative Medicine [facility] [address] [place] [phone] Rakel Castillo MD [address] [place] [address] [place] [address] 02/02/2025 10:30 AM EDT Office Visit Hematology/Oncolo gy [facility] [place] [address] [place] [phone] Eleuterio Zapata MD [address] [place] [address] 02/07/2025 10:45 AM EDT Office Visit Neurosurgery, [place] [address] [place] [address] Clinic, Brain Tumor Multidisciplinary [address] [place] [address] 03/23/2025 8:00 AM EDT Office Visit Pharmacy, [facility] [address] [place] [address] [facility] [place] [address] 03/24/2025 8:40 AM EDT Office Visit Neurology [facility] [place] [address] [place] [address] Tanya Mcpherson MD [address] [facility] [place] [address] 03/24/2025 2:00 PM EDT Scheduled Telephone Interventional Pain Center [facility] [address] [place] [phone] Nurse Po Phone Call Interventional Pain [facility] [address] [place] [address] Scheduled Procedures Name Priority Associated Diagnoses Date/Ti [...] this encounter Medical Devices Implanted Type Area Scarf And Anneal Operator Device Identifier Shelf Expiration Date Model / Serial / Lot Lens 24.0 Mx60e - [id number] - [id number] Implanted:Qty : 1 on 04/30/2018 by Martin Donnelly MD at OR [facility] Left: Eye BAUSCH 01/10/2021 [id number]-79.0 / [id number] / [id number] Mx60 +23.0d Implanted:Qty : 1 on 05/12/2018 by Martin Donnelly MD at OR [facility] Right: Eye 07/12/2020 [id number] / [id number] / [id number] Duraclip 16mm Xlg Repostn - [id number] Implanted:Qty : 2 on 08/23/2022 by Sudhakar Martell MD at ENDOSCOPY [facility] CONMED JESSICA 11/28/2023 [id number] / / Port Implant W/8f Poly Cath - [id number] Implanted:Qty : 1 on 09/18/2023 by Marty Quispe Jr., MD at OR [facility] BARD : PERIPHERAL VASCULAR [id number] 03/12/2025 [id number] / / [id number] documented as of this encounter Advance Directives [...] were consensually agreed upon. Care Teams Construction Accountant Relationship Specialty Start Date End Date Favian Castellon DO [address] [place] [address] PCP - General Family Medicine 10/21/24 documented as of this encounter
[2025-01-26 11:52] LABS: Appearance Urine Clear (Clear); Bilirubin Urine Negative (Negative); Blood Urine Negative (Negative); Color Urine Yellow; Glucose Urine UA Negative (Negative); Ketones Urine Negative (Negative); Leukocyte Esterase Urine Negative (Negative); Nitrite Urine Negative (Negative); Protein Urine Negative (Negative); Specific Gravity Urine > 1.045 (1.000-1.030); Urobilinogen Urine Negative (Negative)
[2025-01-26] MEDS: levETIRAcetam ORAL SOLN 100MG/ML PO ONE (11:56)
[2025-01-26] MEDS: dexAMETHasone 4 MG TAB PO ONE (11:57)
[2025-01-26] MEDS: SENNA 8.6 MG TAB PO SCH (11:57)
[2025-01-26] MEDS: PANTOprazole 40 MG/10 ML SYR IV ONE (11:57)
[2025-01-26] MEDS: bisacodyL 10 MG SUPP PR ONE (11:57)
--- NOTE | 2025-01-26 11:57 | Surgery Consultation ---
Date of Consultation January 26, 2025 Assessment & Plan (1) Constipation: Imaging reveals an enteritis with a microperforation of the jejunum. Etiology unclear. She does have a relatively high stool burden as well. WBC normal. She is currently receiving radiation treatments to her back for her metastatic breast cancer. At this point in time there is no urgent indication for surgical intervention. We will monitor closely. I recommend admission with IV fluids, ice chips only by mouth for now, antibiotics, could initiate stool softeners but would hold on laxatives for now, try and minimize narcotics as much as possible.... Supportive care. Discussed with primary service. Will follow along (2) Enteritis: (3) Nausea: (4) Metastatic breast cancer: (5) Metastasis to spinal column: (6) Breast cancer metastasized to brain: History of Present Illness History of Present Illness Aixa is a pleasant 69-year-old female with metastatic breast cancer. She presents to the emergency room with abdominal complaints. She is having some left mid abdominal discomfort and has also been dealing with constipation issues. She was just recently admitted for abdominal pain nausea vomiting and diarrhea. Apparently she was on a laxative which they stopped at that time. She feels as though things have worsened since then. She now has not had a bowel movement in a week. She does have metastatic disease within the abdomen which is multifocal. Allergies Allergy/AdvReac Type Severity Reaction Status Date / Time No Known Allergies Allergy Verified 01/03/25 09:48 Home Medications Medication Instructions Recorded Confirmed Type acetone (urine) test (Ketostix #25 ea 05/11/19 01/10/25 History strips) atorvastatin 80 mg tablet 80 mg PO PM 05/11/19 01/26/25 History ergocalciferol (vitamin D2) 1,250 50,000 units PO WEEKLY #14 caps 05/11/19 01/26/25 History mcg (50,000 unit) capsule insulin aspart U-100 100 unit/mL 5 - 25 units subcut UD 05/11/19 01/26/25 History (3 mL) subcutaneous pen (Novolog FlexPen U-100 Insulin aspart) lancets 33 gauge (OneTouch Delica #100 ea 05/11/19 01/10/25 History Lancets) levothyroxine 100 mcg tablet 100 mcg PO QAM 05/11/19 01/26/25 History pen needle, diabetic 32 gauge x #10 ea 05/11/19 01/10/25 History 5/32" (BD Ultra-Fine Kamala Pen Needle) blood sugar diagnostic (FreeStyle #6 Boxes 05/21/19 01/10/25 Rx Precision Humza Strips) aspirin 81 mg tablet,delayed 81 mg PO QAM 08/07/19 01/26/25 History release (Karrie Low Dose Aspirin) FreeStyle Aádn 14 Day Rozet #1 ea 02/17/20 01/10/25 Rx (flash glucose scanning reader) FreeStyle Adán 14 Day Sensor #7 ea 02/17/20 01/10/25 Rx (flash glucose sensor) atenolol 25 mg tablet 25 mg PO QAM 08/08/23 01/26/25 History losartan 100 1 tab PO PM 08/08/23 01/26/25 History mg-hydrochlorothiazide 25 mg tablet urea 20 % topical cream 1 applic topical BID PRN Other 02/24/24 01/26/25 History insulin glargine 100 unit/mL 30 unit subcut HS 01/03/25 01/26/25 History subcutaneous solution (Lantus U-100 Insulin) dexamethasone 4 mg tablet 4 mg PO Q12H #30 tabs 01/17/25 01/26/25 Rx acetaminophen 500 mg tablet 1,000 mg PO Q8H PRN Pain 01/19/25 01/26/25 History levetiracetam 500 mg tablet 500 mg PO BID 01/19/25 01/26/25 History memantine 5 mg tablet 5 mg PO UD Memory 01/19/25 01/26/25 History morphine 15 mg immediate release 15 mg PO Q4H PRN Severe Pain 01/19/25 01/26/25 History tablet (Scale Score 7-10) omeprazole 20 mg capsule,delayed 20 mg PO DAILY 01/19/25 01/26/25 History release sennosides 8.6 mg tablet 8.6 mg PO BID 01/19/25 01/26/25 History tirzepatide 12.5 mg/0.5 mL 12.5 mg subcut WK 01/19/25 01/26/25 History subcutaneous pen injector ([place]) metoclopramide HCl 10 mg tablet 10 mg PO QID 7 days #28 tabs 01/25/25 01/26/25 Rx (Reglan) promethazine 25 mg rectal 25 mg [place] Q6H PRN nausea and 01/25/25 01/26/25 Rx suppository vomiting #12 ea Patient History Medical History Port-A-Cath in place (09/18/23) 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 Robi Geiger History of dilatation and curettage History of breast biopsy (06/24/23) Left History of colonoscopy History of tooth extraction History of cataract surgery bilat History of tonsillectomy Hx of laparoscopic gastric banding Family History Mother , Passed Age 90 Breast cancer, Onset Age: 75 Lumpectomy and RT Father No problems noted. Brother No problems noted. Brother No problems noted. Brother No problems noted. Sister No problems noted. Sister No problems noted. Son No problems noted. 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 [employer] How many Children do You have: 1 Feels Safe at Home: Yes Childhood Exposure to Second-Hand Smoke: No Diet: regular caffeine: Yes during the past year weight has: remained stable Dental Care, Regularly: Yes Assistive Devices: Cane and Walker Physical Exam Constitutional: WD/WN, vitals as above no acute distress and not ill appearing Eyes: PERRL, conjunctivae normal, anicteric sclerae EOM intact bilaterally ENMT: external ear and nose normal, oropharynx normal Ears: no hearing impairment Neck: trachea midline, no thyromegaly Respiratory: normal respiratory effort; no respiratory distress and does not use accessory muscles Cardiovascular: Rate/Rhythm: regular rate and regular rhythm Gastrointestinal (Abdomen): Soft. Nondistended. Minimal mid to left mid abdominal tenderness. No peritonitis Skin: no rashes, warm and dry Psychiatric: Orientation: alert, oriented x 3 and cooperative Results & Data Vital Signs (Past 12 Hours) Vital Signs Temp Pulse Resp BP Pulse Ox O2 Del Method 01/26/25 11:12 83 96 01/26/25 11:00 105 H 19 01/26/25 10:42 86 15 01/26/25 10:36 77 13 95 01/26/25 09:51 95 H 95 01/26/25 09:30 91 H 13 96 01/26/25 09:24 92 H 13 95 01/26/25 09:18 92 H 13 95 01/26/25 09:00 93 H 13 94 01/26/25 08:49 141/83 H 01/26/25 08:49 141/83 H 01/26/25 08:48 94 H 14 96 01/26/25 08:33 95 H 15 94 01/26/25 08:24 94 H 14 93 01/26/25 08:18 88 01/26/25 08:15 96 H 15 95 01/26/25 07:42 97 Room Air 01/26/25 06:43 36.4 C L 91 H 18 130/89 99 Room Air PG Care Time/CCT Total # of Minutes Spent Total Time Spent with Patient: Total time spent is greater than 50% in coordination of care (as documented) at patient's floor/unit and/or counseling patient: Coding Level of Care Code 53584 IN/OBS CONSULT LVL 4,60M Diagnoses Constipation K59.00 Constipation type: unspecified constipation type Enteritis K52.9 Nausea R11.0 Metastatic breast cancer C50.919 Metastasis to spinal column C79.51 Malignant neoplasm of left breast metastatic to brain C50.912; C79.31 Laterality: left (1) Constipation Constipation type: unspecified constipation type Qualified Code(s): K59.00 - Constipation, unspecified (6) Breast cancer metastasized to brain Laterality: left Qualified Code(s): C50.912 - Malignant neoplasm of unspecified site of left female breast; C79.31 - Secondary malignant neoplasm of brain
--- NOTE | 2025-01-26 12:06 | History & Physical Report ---
Date of Service January 26, 2025 Assessment & Plan (1) Enteritis: (2) Nausea: (3) Constipation: (4) Metastatic breast cancer: (5) Diabetes: (6) Hypertension: (7) Dyslipidemia: (8) Hypothyroidism: Plan 69 year old female with PMH significant for HTN, HLD, DM II, hypothyroidism, breast cancer in 2022 s/p bilateral mastectomy, recently diagnosed metastasis to spine, pelvis, liver, spleen, lungs, brain in December 2024 after developed seizure and was found to have brain metastasis who presented to the ED today with abdominal pain, nausea, and constipation x4 days and was found to have enteritis and microperforation. Enteritis, nausea, constipation CT abdomen revealed enteritis, microperforation, diverticulosis, moderate fecal retention Also re-demonstrated extensive metastatic disease and pathologic fracture lateral left ninth rib Surgery consulted and recommending supportive care, no surgery at this time Plan discussed with Dr. Dukes -NPO with ice chips -MIVF -Zosyn q8hr -IV zofran PRN -stool softner -Bisacodyl supp x1 -Surgery will continue to follow daily Metastatic breast cancer Radiation oncology informed that patient is getting admitted Continue dexamethasone, keppra, memantine per home dosing Pain management with IV tylenol and dilaudid - holding home morphine HTN BPs stable Continue atenolol Holding losartan-HCTZ Monitor BPs and consider restarting losartan if hypertensive DMII Insulin dependent Patient takes lantus and novolog - ordered SSI with correction factor of 25 only since NPO Will need adjustment for carb ratio coverage when no longer NPO Holding Mounjaro while inpt HLD Continue statin per home dosing Hypothyroidism Continue levothyroxine per home dosing DVT Prophylaxis: SQ lovenox Code Status: FULL CODE - As per discussion at bedside with the patient. PCP: Dr Favian Castellon DO Disposition: admit to med/surg with tele Patient seen in collaboration with Dr Fraga. Please see addendum. I spent a total of 80 minutes coordinating, documenting and providing care for this patient excluding time spent in the performance of separately billed se rvices or time spent by another provider/QHP. Admission and Anticipated Discharge Date Admission Date: 01/26/2025 History of Present Illness Chief Complaint: abdominal pain Primary Care Provider: Favian Castellon DO 69 year old female with PMH significant for HTN, HLD, DM II, hypothyroidism, breast cancer in 2022 s/p bilateral mastectomy, recently diagnosed metastasis to spine, pelvis, liver, spleen, lungs, brain in December 2024 after developed seizure and was found to have brain metastasis who presented to the ED today with abdominal pain, nausea, and constipation x4 days. Patient was recently admitted from 01/19 to 01/22 for N/V/D and was managed with supportive care. Her stool softeners were held while she was in the hospital but she resumed them at home. She then came to the ED on 01/24 for constipation after not having a bowel movement since 01/22. Per review of ED note, patient was provided magnesium citrate and scripts for Reglan and Phenergan, but it does not appear that these scripts were filled per med rec. Patient returned to the ED today for ongoing constipation with nausea and abdominal pain. She explains that she tried senna, magnesium citrate, and a Phenergan suppository with no BM. Her abdominal pain is localized to her left side and was initially 10/10 but came down to a 8/10 after IV morphine in the ED. She denies fevers, chills, chest pain, SOB, urinary symptoms. She lives at home with her and uses a cane to walk. She is currently undergoing radiation therapy to her brain and back with Dr. Ly of [place]. She was supposed to receive radiation every day this week. She also follows with Dr. Zapata of [place] [facility] and Dr Castillo of [facility]. Allergies Allergy/AdvReac Type Severity Reaction Status Date / Time No Known Allergies Allergy Verified 01/03/25 09:48 Home Medications Medication Instructions Recorded Confirmed Type acetone (urine) test (Ketostix #25 ea 05/11/19 01/10/25 History strips) atorvastatin 80 mg tablet 80 mg PO PM 05/11/19 01/26/25 History ergocalciferol (vitamin D2) 1,250 50,000 units PO WEEKLY #14 caps 05/11/19 01/26/25 History mcg (50,000 unit) capsule insulin aspart U-100 100 unit/mL 5 - 25 units subcut UD 05/11/19 01/26/25 History (3 mL) subcutaneous pen (Novolog FlexPen U-100 Insulin aspart) lancets 33 gauge (OneTouch Delica #100 ea 05/11/19 01/10/25 History Lancets) levothyroxine 100 mcg tablet 100 mcg PO QAM 05/11/19 01/26/25 History pen needle, diabetic 32 gauge x #10 ea 05/11/19 01/10/25 History 5/32" (BD Ultra-Fine Kamala Pen Needle) blood sugar diagnostic (FreeStyle #6 Boxes 05/21/19 01/10/25 Rx Precision Humza Strips) aspirin 81 mg tablet,delayed 81 mg PO QAM 08/07/19 01/26/25 History release (Karrie Low Dose Aspirin) FreeStyle Adán 14 Day [place] #1 ea 02/17/20 01/10/25 Rx (flash glucose scanning reader) FreeStyle Adán 14 Day Sensor #7 ea 02/17/20 01/10/25 Rx (flash glucose sensor) atenolol 25 mg tablet 25 mg PO QAM 08/08/23 01/26/25 History losartan 100 1 tab PO PM 08/08/23 01/26/25 History mg-hydrochlorothiazide 25 mg tablet urea 20 % topical cream 1 applic topical BID PRN Other 02/24/24 01/26/25 History insulin glargine 100 unit/mL 30 unit subcut HS 01/03/25 01/26/25 History subcutaneous solution (Lantus U-100 Insulin) dexamethasone 4 mg tablet 4 mg PO Q12H #30 tabs 01/17/25 01/26/25 Rx acetaminophen 500 mg tablet 1,000 mg PO Q8H PRN Pain 01/19/25 01/26/25 History levetiracetam 500 mg tablet 500 mg PO BID 01/19/25 01/26/25 History memantine 5 mg tablet 5 mg PO UD Memory 01/19/25 01/26/25 History morphine 15 mg immediate release 15 mg PO Q4H PRN Severe Pain 01/19/25 01/26/25 History tablet (Scale Score 7-10) omeprazole 20 mg capsule,delayed 20 mg PO DAILY 01/19/25 01/26/25 History release sennosides 8.6 mg tablet 8.6 mg PO BID 01/19/25 01/26/25 History tirzepatide 12.5 mg/0.5 mL 12.5 mg subcut WK 01/19/25 01/26/25 History subcutaneous pen injector ([place]) metoclopramide HCl 10 mg tablet 10 mg PO QID 7 days #28 tabs 01/25/25 01/26/25 Rx (Reglan) promethazine 25 mg rectal 25 mg WI Q6H PRN nausea and 01/25/25 01/26/25 Rx suppository vomiting #12 ea Past Med/Surg History Problem List (Updated 01/26/25 @ 12:20 by ALEXANDRIA Rahman) Enteritis Nausea (Acute) Constipation (Acute) Metastatic breast cancer (Acute) Metastasis to spinal column (Acute) Intractable back pain (Acute) Breast cancer metastasized to brain (Acute 12/30/24) Obesity Diabetes (Chronic) Hypertension (Chronic) Dyslipidemia Hypothyroidism Diabetes type 2, uncontrolled 06/24/23 Ha1c: 8.2% Medical History (Updated 01/26/25 @ 12:20 by ALEXANDRIA Rahman) Diarrhea Nausea & vomiting Acute dehydration Malignant neoplasm of upper-outer quadrant of left breast in female, estrogen receptor negative (06/24/23) Cancer of left breast Tremor pt saw neuro 08/2023. tremor is mild; b/l hands and head. per neuro, 'mild and would not treat at this time'; plan to do further testing after breast surgery 2/2 FH of Parkinsons Lumbar radiculopathy receives injections Lower extremity edema mild; takes lasix PRN Port-A-Cath in place (09/18/23) Kevin's palsy hx 2018 > no further problems Breast cancer dx jul 01 2023 [facility] > left breast Anxiety hx of > none at present History of COVID-2021; resolved Hypertension Surgical History History of bilateral mastectomy (08/18/23) Bilateral Mastectomies with Left Axillary [place] Lymph Node Biopsy(Bilateral) Dr. Robi Geiger History of dilatation and curettage History of breast biopsy (06/24/23) Left History of colonoscopy History of tooth extraction History of cataract surgery bilat History of tonsillectomy Hx of laparoscopic gastric banding Family History Mother , Passed Age 90 Breast cancer, Onset Age: 75 Lumpectomy and RT Father No problems noted. Brother No problems noted. Brother No problems noted. Brother No problems noted. Sister No problems noted. Sister No problems noted. Son No problems noted. 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 [employer] How many Children do You have: 1 Feels Safe at Home: Yes Childhood Exposure to Second-Hand Smoke: No Diet: regular caffeine: Yes during the past year weight has: remained stable Dental Care, Regularly: Yes Assistive Devices: Cane and Walker Review of Systems Review of Systems: All systems reviewed & are unremarkable except as noted in HPI & below Physical Exam Physical Exam: General/Psych: WD/WN, sitting up in bed, NAD, conversing easily, euthymic affect Head: normocephalic, atraumatic Eyes: normal inspection, PERRL, conjunctivae pink, anicteric sclerae ENT: external ear and nose normal, oropharynx normal Neck: normal visual inspection, trachea midline, no thyromegaly Respiratory: normal respiratory effort, lungs clear to auscultation, no wheeze/rales/rhonchi, no accessory muscle use Cardiovascular: regular rate and rhythm, no murmur/rub/gallop, no JVD Extremities: no cyanosis or clubbing, normal peripheral pulses, no BLE edema Abdomen/GI: normal bowel sounds, soft, no hepatosplenomegaly, tenderness in LUQ and LLQ on palpation Neurologic/MSK: A+Ox3, thought process is delayed, moves all extremities Skin: no rashes, normal color, warm and dry Results & Data Results & Data Vital Signs (Past 12 Hours) Vital Signs Temp Pulse Resp BP Pulse Ox O2 Del Method 01/26/25 11:12 83 96 01/26/25 11:00 105 H 19 01/26/25 10:42 86 15 01/26/25 10:36 77 13 95 01/26/25 09:51 95 H 95 01/26/25 09:30 91 H 13 96 01/26/25 09:24 92 H 13 95 01/26/25 09:18 92 H 13 95 01/26/25 09:00 93 H 13 94 01/26/25 08:49 141/83 H 01/26/25 08:49 141/83 H 01/26/25 08:48 94 H 14 96 01/26/25 08:33 95 H 15 94 01/26/25 08:24 94 H 14 93 01/26/25 08:18 88 01/26/25 08:15 96 H 15 95 01/26/25 07:42 97 Room Air 01/26/25 06:43 36.4 C L 91 H 18 130/89 99 Room Air Laboratory Results Short CBC 01/26/25 Range/Units 07:32 WBC 7.02 (4.8-10.8) K/ul Hgb 13.8 (12.0-16.0) g/dl Hct 42.5 (37.0-47.0) % Plt Count 391 (130-400) K/uL BMP 01/26/25 07:32 Sodium 134 L Potassium 4.3 Chloride 95 L Carbon Dioxide 31 BUN 26 H Creatinine 0.92 Glucose 183 H Calcium 9.8 Liver Function 01/26/25 Range/Units 07:32 Total Bilirubin 0.8 (0.2-1.0) mg/dl AST 60 H (13-39) U/L ALT 65 H (7-52) U/L Alkaline Phosphatase 282 H (34-104) U/L Albumin 4.1 (3.4-5.0) gm/dl Urine 01/26/25 Range/Units 11:03 Urine Color Yellow Urine Appearance Clear (Clear) Urine pH 7.0 (4.5-7.5) Ur Specific [place] > 1.045 H (1.000-1.030) Urine Protein Negative (Negative) Urine Glucose (UA) Negative (Negative) I have independently reviewed and interpreted patient's admitting labs including CBC, CMP, UA. Diagnostic Findings Abdomen/Pelvis CT 01/26/25 07:[address] WITH IV CONTRAST CT DOSE: 912.84 mGy.cm HISTORY: Acute generalized abdominal pain worsening abd pain w/ cancer no BM TECHNIQUE: Multiaxial CT images of the abdomen and pelvis were performed following the IV administration of 94 cc of Optiray, A dose lowering technique was utilized adhering to the principles of ALARA. COMPARISON STUDY: 01/24/2025, outside hospital PET/CT from 12/29/2024 FINDINGS: Cardiomegaly with coronary artery calcifications. Partially imaged lower thoracic lymphatic and pulmonary metastasis redemonstrated which are unchanged from the study from 48 hours earlier.r 1.8 cm metastatic nodules in the left lower lobe on image 21 previously measured 1.7 cm on the prior PET/CT. Right lower lobe mucus plugging again noted along with linear right basilar consolidation and small right pleural effusion. No pneumatosis or pneumoperitoneum. 2 cm hypodense focus in the spleen on image 64 series 3 suggestive of metastasis again noted. Mild to moderate atrophy of the pancreas. Unchanged small nodular foci of the adrenal glands again noted measuring up to approximately a centimeter. Cholelithiasis without CT evidence of acute cholecystitis. Multifocal hepatic metastasis again noted. Dominant 4 similar left hepatic lobe lesion on image 122 generally unchanged from the prior PET/CT. Patency of the hepatic and portal veins. Numerous hypodense foci of the kidneys are unchanged, most which are too small to characterize. A 1.7 cm lesion within the inferior pole left kidney appears to demonstrate enhancement. Renal metastasis again are differential consideration. No hydronephrosis. Indeterminate 9 mm hypodense lesion within the posterior uterus on image 242 was hypermetabolic on the prior study. No abdominal aortic aneurysm. Unchanged necrotic lymphatic metastasis of the upper abdomen. Distal esophageal wall thickening. No bowel obstruction. Colonic diverticulosis without acute diverticulitis. Moderate fecal retention of the ascending and transverse colon. Normal appendix. There is mild wall thickening noted involving a loop of jejunum within the abdominal quadrant with adjacent inflammatory stranding, image 92 series 3. Additionally, there are a few locules of eccentrically located air which appear to be outside of the lumen on image 82 series 3. Partially calcified 2.6 cm nodular focus within the subcutaneous anterior abdominal wall again noted. Additionally, there are several subcentimeter subcutaneous nodular foci within the intra-abdominal wall likely representing additional metastasis. He is also unchanged. Multifocal osseous metastasis again noted without acute pathologic fracture. Pathologic fracture of the lateral left ninth rib however has progressed from the prior PET/CT. A few scattered subcentimeter metastatic omental/peritoneal nodules are also again seen. IMPRESSION: 1. Findings compatible with a mild nonspecific enteritis involving a loop of jejunum within the abdominal left upper quadrant. Additionally, there are a few locules of adjacent air which appear to be outside of the lumen suggestive of associated microperforation. 2. Extensive metastatic disease redemonstrated as above. 3. Colonic diverticulosis without acute diverticulitis. 4. Moderate fecal retention within the ascending and transverse colon. 5. Pathologic fracture lateral left ninth rib is again noted which has progressed from the 12/29/2024 PET/CT. ACT 112: Negative or not required by law. The above report was generated using voice recognition software. It may contain grammatical, syntax or spelling errors. Electronically signed by: Hola Lei M.D. 01/26/2025 8:29 AM Medications Administered Current Inpatient Medications Hydromorphone HCl (Hydromorphone Inj 0.5 Mg/0.5 Ml Syr) 0.5 mg IV Q2H PRN PRN Reason: Moderate Pain (Scale 4, 5, 6) Stop: 02/09/25 11:44 Hydromorphone HCl (Hydromorphone Inj 1 Mg/Ml Syringe) 1 mg IV Q2H PRN PRN Reason: Severe Pain (Scale 7, 8, 9,10) Stop: 02/09/25 11:32 Sennosides (Senna 8.6 Mg Tab) 8.6 mg PO BID JODY Stop: 02/25/25 11:29 Last Admin: 01/26/25 11:57 Dose: 8.6 mg Code Status & VTE Plan Code Status Full Code VTE Prophylaxis Plan VTE Prophylaxis will be ordered: Yes Supervising Physician Co-Signing Physician Notes Patient seen and examined independently. Discussed with above provider. Patient with medical history of possible metastatic breast cancer presents to the hospital with abdominal pain, nausea and vomiting. CT abdomen pelvis shows mild nonspecific enteritis involving loops of jejunum in the left upper quadrant with possible associated microperforation. Plan for bowel rest, IV fluids, pain management, IV antibiotics, stool softener. Surgery on board for comanagement. I have reviewed the advanced practitioner's documentation, and I agree with, and take responsibility for the plan of care I spent a total of 25 minutes coordinating, documenting, and providing care for this patient excluding time spent in the performance of separately billed services. All of the aforementioned completed while collaborating with the assigned advanced practitioner for a full treatment plan (3) Constipation Constipation type: unspecified constipation type Qualified Code(s): K59.00 - Constipation, unspecified (6) Hypertension Hypertension type: primary hypertension Qualified Code(s): I10 - Essential (primary) hypertension (8) Hypothyroidism Hypothyroidism type: unspecified Qualified Code(s): E03.9 - Hypothyroidism, unspecified
[2025-01-26] MEDS: PIPERACILLIN/TAZOBACTAM 4.5 GM/100 ML BAG IV SCH ×2 (14:09→17:26)
[2025-01-26] MEDS ORDERED: DEXTROSE 50% 50 ML SYRINGE IV PRN (14:19)
[2025-01-26] MEDS ORDERED: CARBOHYDRATES FOR HYPOGLYCEMIA PO PRN (14:19)
[2025-01-26] MEDS ORDERED: GLUCAGON FOR INJ 1 MG VIAL SQ PRN (14:19)
[2025-01-26] MEDS ORDERED: NALOXONE HCL 0.4 MG/1 ML VIAL/CARP IV PRN (14:19)
[2025-01-26] MEDS ORDERED: GLUCOSE 40% GEL 15 GM TUBE PO PRN (14:19)
[2025-01-26] MEDS ORDERED: GLUCOSE 10 TAB/TUBE PO PRN (14:19)
[2025-01-26] MEDS: MAGNESIUM HYDROXIDE SUSP 30 ML UDC PO SCH (14:20)
[2025-01-26] MEDS: LACTATED RINGER'S 1,000 ML IV SCH (15:40)
[2025-01-26] MEDS: ENOXAPARIN INJ 40 MG/0.4 ML SYR SQ SCH (15:44)
[2025-01-26] MEDS: ATENOLOL 25 MG TABLET PO SCH (16:55)
[2025-01-26] MEDS: INSULIN ASPART PER UNIT CHARGE SC SCH (18:07)
[2025-01-26] MEDS: ATORVASTATIN 40 MG TAB PO SCH (22:02)
[2025-01-26] MEDS: dexAMETHasone 4 MG TAB PO SCH (22:03)
[2025-01-26] MEDS: levETIRAcetam 500 MG TAB PO SCH (22:03)
[2025-01-27] MEDS: HYDROmorphone INJ 1 MG/ML SYRINGE IV PRN (00:42)
[2025-01-27] MEDS: LEVOTHYROXINE SODIUM 100 MCG TABLET PO SCH (05:29)
[2025-01-27] MEDS: HYDROmorphone INJ 0.5 MG/0.5 ML SYR IV PRN (06:16)
[2025-01-27 07:56] LABS: Hematocrit (blood only) 31.3 % (37.0-47.0); Hemoglobin 10.2 g/dl (12.0-16.0); Mean Corpuscular Hemoglobin 27.5 pg (25.0-34.0); Mean Corpuscular Hgb Conc 32.6 g/dL (32.0-36.0); Mean Corpuscular Volume 84.4 fL (80.0-100.0); Mean Platelet Volume 9.6 fL (9.4-12.4); Platelet Count 281 K/uL (130-400); RDW Standard Deviation 49.1 fL (36.4-46.3); Red Blood Count 3.71 M/uL (4.20-5.40); White Blood Count 6.07 K/ul (4.8-10.8)
[2025-01-27 08:30] LABS: Calcium 8.2 mg/dl (8.6-10.3); Potassium 4.7 mmol/L (3.5-5.1)
[2025-01-27] MEDS: ACETAMINOPHEN 1,000 MG/100 ML VIAL IV PRN (08:39)
[2025-01-27 08:40] LABS: Creatinine Clr Calc Pharmacy 78.4 ml/min
[2025-01-27] MEDS: DOCUSATE SODIUM 100 MG CAP PO SCH (08:40)
--- NOTE | 2025-01-27 08:47 | Surgery Progress Note ---
Date of Service January 27, 2025 Assessment & Plan (1) Constipation: Plan: Imaging reveals an enteritis with a microperforation of the jejunum. -No urgent surgical intervention indicated at this time, continue conservative management -Patient doing well this morning, denies N/V and passing gas, no BM as of yet. Will initiate clear liquids this afternoon -WBC normal - continue IV abx at this time -Continue stool softeners due to high stool burden on imaging, but would hold on laxatives for now -Continue medical management per primary team, surgery will continue to follow As above. Feeling considerably better today than yesterday. Denies abdominal pain or nausea. Still no bowel function Recommend going very easy on the oral laxatives. Will add a suppository. Continue IV antibiotics for the microperforation of the jejunum. Dr. Zavala covering for the weekend (2) Enteritis: (3) Nausea: (4) Metastatic breast cancer: (5) Metastasis to spinal column: (6) Breast cancer metastasized to brain: Admission and Anticipated Discharge Date Admission Date: January 26, 2025 Subjective Patient doing well this morning, states she feels significantly better than yesterday Denies N/V and is passing gas, no BM yet VSS and afebrile overnight , on IV abx Physical Exam 2 Constitutional: WD/WN, vitals as above Respiratory: normal respiratory effort, lungs clear to auscultation Cardiovascular: RRR, no murmur, no edema Gastrointestinal (Abdomen): Abdomen soft, nondistended, mild TTP over the left mid-abdomen region without rebound, guarding or peritonitis Psychiatric: A+Ox3, euthymic affect Results & Data Vital Signs (Past 12 Hours) Vital Signs Temp Pulse Pulse Resp BP Pulse Ox O2 Del Method 01/27/25 07:33 36.8 C 75 18 144/80 H 96 Room Air 01/27/25 02:09 36.7 C 63 16 134/80 96 Room Air 01/26/25 22:18 Room Air 01/26/25 22:18 36.8 C 72 18 147/85 H 97 Room Air 01/26/25 22:13 36.8 C 72 18 147/85 H 97 Room Air 01/26/25 22:03 66 01/26/25 21:34 75 PG Care Time/CCT Total # of Minutes Spent Total Time Spent with Patient: Total time spent is greater than 50% in coordination of care (as documented) at patient's floor/unit and/or counseling patient: Coding [place] [address] SUB INP/OBS CARE Patient Type Established Diagnoses Constipation K59.00 Constipation type: unspecified constipation type Enteritis K52.9 Nausea R11.0 Metastatic breast cancer C50.919 Metastasis to spinal column C79.51 Malignant neoplasm of left breast metastatic to brain C50.912; C79.31 Laterality: left (1) Constipation Constipation type: unspecified constipation type Qualified Code(s): K59.00 - Constipation, unspecified (6) Breast cancer metastasized to brain Laterality: left Qualified Code(s): C50.912 - Malignant neoplasm of unspecified site of left female breast; C79.31 - Secondary malignant neoplasm of brain
[2025-01-27] MEDS: LACTATED RINGER'S 1,000 ML IV ONE (11:36)
[2025-01-27] MEDS: PANTOprazole 40 MG TAB PO SCH (11:36)
[2025-01-27] MEDS ORDERED: INSULIN ASPART PER UNIT CHARGE SC SCH (12:00)
[2025-01-27] MEDS: INSULIN ASPART PER UNIT CHARGE SC SCH (13:45)
--- NOTE | 2025-01-27 14:23 | Hospitalist Progress Note ---
Date of Service January 27, 2025 Assessment & Plan (1) Enteritis: (2) Nausea: (3) Constipation: (4) Metastatic breast cancer: (5) Diabetes: (6) Hypertension: (7) Dyslipidemia: (8) Hypothyroidism: Plan 69 year old female with PMH significant for HTN, HLD, DM II, hypothyroidism, breast cancer in 2022 s/p bilateral mastectomy, recently diagnosed metastasis to spine, pelvis, liver, spleen, lungs, brain in December 2024 after developed seizure and was found to have brain metastasis who presented to the ED today with abdominal pain, nausea, and constipation x4 days and was found to have enteritis and microperforation. Enteritis with microperforation of jejunum Nausea, constipation --CT abd:revealed enteritis, microperforation, diverticulosis, moderate fecal retention. Also re-demonstrated extensive metastatic disease and pathologic fracture lateral left ninth rib No urgent surgical intervention per surgery Appreciate surgery input Liquid diet for today Continue IV antibiotics, Zosyn Started on stool softeners, will hold off on laxatives for now per surgery Left ninth rib pathological fracture--POA Incentive spirometry Minimize narcotics as able Metastatic breast cancer Ongoing radiation therapy Continue dexamethasone, keppra, memantine Minimize narcotics as able HTN BP slightly elevated likely secondary to pain Continue atenolol Resume losartan hold HCTZ for now Monitor BP DM II Continue insulin while hospitalized Monitor blood glucose levels HLD Continue statin Hypothyroidism Continue levothyroxine DVT Px: SQ Lovenox Code Status: Full Code Disposition: Home as able Admission and Anticipated Discharge Date Admission Date: January 26, 2025 Subjective Patient is seen and examined at bedside Less abdominal pain today Denies any nausea, vomiting, chest pain, dyspnea +Flatus, no BM today Tolerating liquid diet Review of Systems Review of Systems: All systems reviewed & are unremarkable except as noted in Subjective Physical Exam Physical Exam: Physical Exam: Vitals signs as noted above General Appearance:Moderately built and nourished, no apparent distress, chronic ill appearing Head: normocephalic, Atraumatic Eyes: normal inspection, EOMI Neck: supple, Trachea midline Respiratory/Chest: Normal breath sounds, CTA, No accessory muscle use Cardiovascular: S1, S2, No murmur Abdomen/GI:Soft, mildly distended, mild LLQ tender, Bowel sounds present Extremities/Musculoskeletal:normal inspection, no edema Neurologic/Psych:AAOX3, grossly no focal neurological deficits Skin: normal color, warm Results & Data Results & Data Vital Signs (Past 12 Hours) Vital Signs Temp Pulse Pulse Resp BP Pulse Ox O2 Del Method 01/27/25 11:30 37.0 C 78 20 146/85 H 96 Room Air 01/27/25 07:33 36.8 C 75 18 144/80 H 96 Room Air 01/27/25 07:30 82 Laboratory Results Short CBC 01/27/25 Range/Units 07:27 WBC 6.07 (4.8-10.8) K/ul Hgb 10.2 L D (12.0-16.0) g/dl Hct 31.3 L (37.0-47.0) % Plt Count 281 (130-400) K/uL BMP 01/27/25 07:27 Sodium 134 L Potassium 4.7 Chloride 100 Carbon Dioxide 29 BUN 14 Creatinine 0.50 L D Glucose 188 H Calcium 8.2 L (3) Constipation Constipation type: unspecified constipation type Qualified Code(s): K59.00 - Constipation, unspecified (6) Hypertension Hypertension type: primary hypertension Qualified Code(s): I10 - Essential (primary) hypertension (8) Hypothyroidism Hypothyroidism type: unspecified Qualified Code(s): E03.9 - Hypothyroidism, unspecified
[2025-01-27] MEDS: LOSARTAN POTASSIUM 50 MG TAB PO SCH (16:08)
[2025-01-27] MEDS: bisacodyL 10 MG SUPP PR STA (17:08)
[2025-01-27] MEDS: LANTUS PER UNIT CHARGE SQ SCH (20:42)
[2025-01-28] MEDS: ASPIRIN 81 MG ECTAB PO SCH (08:21)
--- NOTE | 2025-01-28 09:46 | Surgery Progress Note ---
Date of Service January 28, 2025 Assessment & Plan (1) Bowel perforation: Plan: clinically improving begin fulls continue bowel regimen Admission and Anticipated Discharge Date Admission Date: January 26, 2025 Subjective much improved, less psain multiple BMs no N/V Review of Systems Constitutional: no fever and no chills Respiratory: no cough and no dyspnea Cardiovascular: no chest pain Gastrointestinal: + abdominal pain and + change in bowel h abits; no nausea and no vomiting Genitourinary: no dysuria Neurologic: no localized weakness and no generalized weakness Psychiatric: no behavioral changes Physical Exam Constitutional: WD/WN, vitals as above Respiratory: normal respiratory effort, lungs clear to auscultation Cardiovascular: RRR, no murmur, no edema Gastrointestinal (Abdomen): Inspection/Auscultation: abdomen normal to inspection and normal bowel sounds; abdomen not distended Percussion/Palpation: + abdomen tender and abdomen soft; no guarding and abdomen not rigid Skin: no rashes, warm and dry Results & Data Vital Signs (Past 12 Hours) Vital Signs Temp Pulse Pulse Resp BP Pulse Ox O2 Del Method 01/28/25 08:05 36.5 C 67 16 153/78 H 97 Room Air 01/28/25 07:39 Room Air 01/28/25 07:11 65 01/28/25 03:33 36.7 C 80 16 153/89 H 94 Room Air 01/28/25 00:12 Room Air 01/28/25 00:11 79 01/27/25 22:50 36.8 C 74 18 144/81 H 95 Room Air
[2025-01-28 12:27] LABS: Hemoglobin 10.4 g/dl (12.0-16.0); Mean Corpuscular Hemoglobin 26.8 pg (25.0-34.0); Mean Corpuscular Hgb Conc 32.5 g/dL (32.0-36.0); Mean Corpuscular Volume 82.5 fL (80.0-100.0); Mean Platelet Volume 9.6 fL (9.4-12.4); Platelet Count 286 K/uL (130-400); RDW Coefficient of Variation 15.9 % (11.5-14.5); RDW Standard Deviation 47.8 fL (36.4-46.3); Red Blood Count 3.88 M/uL (4.20-5.40); White Blood Count 10.03 K/ul (4.8-10.8)
[2025-01-28 12:49] LABS: Albumin Level 3.1 gm/dl (3.4-5.0); Bilirubin Direct 0.1 mg/dl (0-0.2); Bilirubin,Total 0.5 mg/dl (0.2-1.0); Calcium 8.3 mg/dl (8.6-10.3); Creatinine Clr Calc Pharmacy 78.4 ml/min; Magnesium 2.4 mg/dl (1.7-2.4); Potassium 4.3 mmol/L (3.5-5.1)
--- NOTE | 2025-01-28 17:00 | Hospitalist Progress Note ---
Date of Service January 28, 2025 Assessment & Plan (1) Enteritis: (2) Nausea: (3) Constipation: (4) Metastatic breast cancer: (5) Diabetes: (6) Hypertension: (7) Dyslipidemia: (8) Hypothyroidism: Plan 69 year old female with PMH significant for HTN, HLD, DM II, hypothyroidism, breast cancer in 2022 s/p bilateral mastectomy, recently diagnosed metastasis to spine, pelvis, liver, spleen, lungs, brain in December 2024 after developed seizure and was found to have brain metastasis who presented to the ED today with abdominal pain, nausea, and constipation x4 days and was found to have enteritis and microperforation. Enteritis with microperforation of jejunum Nausea, constipation --CT abd:revealed enteritis, microperforation, diverticulosis, moderate fecal retention. Also re-demonstrated extensive metastatic disease and pathologic fracture lateral left ninth rib No urgent surgical intervention per surgery Appreciate surgery input Liquid diet for today Continue IV antibiotics, Zosyn Continue stool softeners--hold for diarrhea Had bowel movements Full liquid diet for today Left ninth rib pathological fracture--POA Incentive spirometry Minimize narcotics as able Metastatic breast cancer Ongoing radiation therapy Continue dexamethasone, keppra, memantine Minimize narcotics as able HTN BP stable Continue atenolol, losartan hold HCTZ for now Monitor BP DM II Continue insulin while hospitalized Monitor blood glucose levels HLD Continue statin Hypothyroidism Continue levothyroxine DVT Px: SQ Lovenox Code Status: Full Code Disposition: Home as able Admission and Anticipated Discharge Date Admission Date: January 26, 2025 Subjective Patient is seen and examined at bedside States feeling a lot better today Abdominal pain almost resolved Had multiple bowel movements Decreased left rib pain Denies any nausea, vomiting, chest pain, dyspnea No other complaints Review of Systems Review of Systems: All systems reviewed & are unremarkable except as noted in Subjective Physical Exam Physical Exam: Physical Exam: Vitals signs as noted above General Appearance:Moderately built and nourished, no apparent distress, chronic ill appearing Head: normocephalic, Atraumatic Eyes: normal inspection, EOMI Neck: supple, Trachea midline Respiratory/Chest: Normal breath sounds, CTA, No accessory muscle use Cardiovascular: S1, S2, No murmur Abdomen/GI:Soft, mildly distended, mild LLQ tender, Bowel sounds present Extremities/Musculoskeletal:normal inspection, no edema Neurologic/Psych:AAOX3, grossly no focal neurological deficits Skin: normal color, warm Results & Data Results & Data Vital Signs (Past 12 Hours) Vital Signs Temp Pulse Pulse Resp BP Pulse Ox O2 Del Method 01/28/25 15:21 36.4 C L 64 16 132/75 94 Room Air 01/28/25 15:08 60 01/28/25 11:24 36.8 C 70 16 136/84 95 Room Air 01/28/25 08:05 36.5 C 67 16 153/78 H 97 Room Air 01/28/25 07:39 Room Air 01/28/25 07:11 65 Laboratory Results Short CBC 01/28/25 Range/Units 11:40 WBC 10.03 (4.8-10.8) K/ul Hgb 10.4 L (12.0-16.0) g/dl Hct 32.0 L (37.0-47.0) % Plt Count 286 (130-400) K/uL BMP 01/28/25 11:40 Sodium 133 L Potassium 4.3 Chloride 101 Carbon Dioxide 28 BUN 13 Creatinine 0.50 L Glucose 165 H Calcium 8.3 L Liver Function 01/28/25 Range/Units 11:40 Total Bilirubin 0.5 (0.2-1.0) mg/dl Direct Bilirubin 0.1 (0-0.2) mg/dl AST 64 H (13-39) U/L ALT 51 (7-52) U/L Alkaline Phosphatase 209 H (34-104) U/L Albumin 3.1 L (3.4-5.0) gm/dl (3) Constipation Constipation type: unspecified constipation type Qualified Code(s): K59.00 - Constipation, unspecified (6) Hypertension Hypertension type: primary hypertension Qualified Code(s): I10 - Essential (primary) hypertension (8) Hypothyroidism Hypothyroidism type: unspecified Qualified Code(s): E03.9 - Hypothyroidism, unspecified
[2025-01-29 07:59] LABS: Hematocrit (blood only) 34.1 % (37.0-47.0); Hemoglobin 11.1 g/dl (12.0-16.0); Mean Corpuscular Hemoglobin 27.1 pg (25.0-34.0); Mean Corpuscular Hgb Conc 32.6 g/dL (32.0-36.0); Mean Corpuscular Volume 83.4 fL (80.0-100.0); Mean Platelet Volume 9.6 fL (9.4-12.4); Platelet Count 272 K/uL (130-400); RDW Coefficient of Variation 15.9 % (11.5-14.5); RDW Standard Deviation 47.7 fL (36.4-46.3); Red Blood Count 4.09 M/uL (4.20-5.40); White Blood Count 7.75 K/ul (4.8-10.8)
[2025-01-29 08:16] LABS: BUN Creatinine Ratio 23.9 (10-20); Calcium 8.5 mg/dl (8.6-10.3); Creatinine Clr Calc Pharmacy 85.2 ml/min; Potassium 4.3 mmol/L (3.5-5.1)
--- NOTE | 2025-01-29 09:40 | Surgery Progress Note ---
Date of Service January 29, 2025 Assessment & Plan (1) Bowel perforation: Plan: would recommend IV abx through tomorrow if does well, then possibly home tomorrow on po abx advance diet Admission and Anticipated Discharge Date Admission Date: January 26, 2025 Subjective no pain passing BMs taking po well Review of Systems Constitutional: no fever and no chills Respiratory: no cough and no dyspnea Cardiovascular: no chest pain Gastrointestinal: no abdominal pain, no nausea, no vomiting and no change in bowel habits Neurologic: no localized weakness and no generalized weakness Psychiatric: no behavioral changes Physical Exam Constitutional: WD/WN, vitals as above Respiratory: normal respiratory effort, lungs clear to auscultation Cardiovascular: RRR, no murmur, no edema Gastrointestinal (Abdomen): Inspection/Auscultation: abdomen normal to inspection and normal bowel sounds; abdomen not distended Percussion/Palpation: abdomen soft; abdomen nontender, no guarding and abdomen not rigid Musculoskeletal: Head/Neck/Chest: normocephalic and head atraumatic Skin: no rashes, warm and dry Results & Data Vital Signs (Past 12 Hours) Vital Signs Temp Pulse Pulse Resp BP Pulse Ox O2 Del Method 01/29/25 07:38 36.8 C 68 18 132/83 97 Room Air 01/29/25 07:00 68 01/29/25 03:53 36.7 C 71 16 124/76 97 Room Air 01/28/25 22:49 36.9 C 72 18 139/78 96 Room Air 01/28/25 21:45 69
[2025-01-29] MEDS: ADVANCED PROBIOTIC 625 MG CAPSULE PO SCH (14:00)
--- NOTE | 2025-01-29 15:44 | Hospitalist Progress Note ---
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 Enteritis with microperforation of jejunum Nausea, constipation --CT abd:revealed enteritis, microperforation, diverticulosis, moderate fecal retention. Also re-demonstrated extensive metastatic disease and pathologic fracture lateral left ninth rib No urgent surgical intervention per surgery Appreciate surgery input Received IV fluids Continue IV antibiotics, Zosyn Continue stool softeners--hold for diarrhea Tolerating regular diet Will likely discharge tomorrow on oral antibiotics Left ninth rib pathological fracture--POA Incentive spirometry Minimize narcotics as able Metastatic breast cancer Ongoing radiation therapy Continue dexamethasone, keppra, memantine Minimize narcotics as able HTN BP stable Continue atenolol, losartan hold HCTZ for now Monitor BP DM II Continue insulin while hospitalized Monitor blood glucose levels HLD Continue statin Hypothyroidism Continue levothyroxine DVT Px: SQ Lovenox Code Status: Full Code Disposition: Home as able Admission and Anticipated Discharge Date Admission Date: January 26, 2025 Subjective Patient is seen and examined at bedside Offers no new complaints today Tolerating diet Eager to get discharged Abdominal pain resolved Having bowel movements Offers no other complaints today Review of Systems Review of Systems: All systems reviewed & are unremarkable except as noted in Subjective Physical Exam Physical Exam: Physical Exam: Vitals signs as noted above General Appearance:Moderately built and nourished, no apparent distress, chronic ill appearing Head: normocephalic, Atraumatic Eyes: normal inspection, EOMI Neck: supple, Trachea midline Respiratory/Chest: Normal breath sounds, CTA, No accessory muscle use Cardiovascular: S1, S2, No murmur Abdomen/GI:Soft, non tender, Bowel sounds present Extremities/Musculoskeletal:normal inspection, no edema Neurologic/Psych:AAOX3, grossly no focal neurological deficits Skin: normal color, warm Results & Data Results & Data Vital Signs (Past 12 Hours) Vital Signs Temp Pulse Pulse Resp BP Pulse Ox O2 Del Method 01/29/25 15:02 69 01/29/25 11:10 36.9 C 66 18 109/71 97 Room Air 01/29/25 07:38 36.8 C 68 18 132/83 97 Room Air 01/29/25 07:00 68 01/29/25 03:53 36.7 C 71 16 124/76 97 Room Air Laboratory Results Short CBC 01/29/25 Range/Units 07:04 WBC 7.75 (4.8-10.8) K/ul Hgb 11.1 L (12.0-16.0) g/dl Hct 34.1 L (37.0-47.0) % Plt Count 272 (130-400) K/uL BMP 01/29/25 07:04 Sodium 135 L Potassium 4.3 Chloride 101 Carbon Dioxide 31 BUN 11 Creatinine 0.46 L Glucose 127 H Calcium 8.5 L (3) Constipation Constipation type: unspecified constipation type Qualified Code(s): K59.00 - Constipation, unspecified (6) Hypertension Hypertension type: primary hypertension Qualified Code(s): I10 - Essential (primary) hypertension (8) Hypothyroidism Hypothyroidism type: unspecified Qualified Code(s): E03.9 - Hypothyroidism, unspecified
[2025-01-29 19:36] VITALS: O2SAT 96
[2025-01-30 04:04] VITALS: RESP 16
[2025-01-30 07:27] VITALS: BP 122/79; PULSE 85; TEMP 98.8
[2025-01-30] MEDS: ONDANSETRON INJ 2 MG/ML 2 ML VIAL IV PRN (08:16)
--- NOTE | 2025-01-30 09:04 | Hospitalist Progress Note ---
Date of Service January 30, 2025 Assessment & Plan (1) Enteritis: (2) Nausea: (3) Constipation: (4) Metastatic breast cancer: (5) Diabetes: (6) Hypertension: (7) Dyslipidemia: (8) Hypothyroidism: Plan 69 year old female with PMH significant for HTN, HLD, DM II, hypothyroidism, breast cancer in 2022 s/p bilateral mastectomy, recently diagnosed metastasis to spine, pelvis, liver, spleen, lungs, brain in December 2024 after developed seizure and was found to have brain metastasis who presented to the ED today with abdominal pain, nausea, and constipation x4 days and was found to have enteritis and microperforation. Enteritis with microperforation of jejunum Nausea, constipation --CT abd:revealed enteritis, microperforation, diverticulosis, moderate fecal retention. Also re-demonstrated extensive metastatic disease and pathologic fracture lateral left ninth rib No urgent surgical intervention per surgery Appreciate surgery input Received IV fluids Continue IV antibiotics, Zosyn Continue stool softeners Tolerating regular diet Discharge on oral antibiotics to complete the course Advised to follow-up with surgery on discharge Left ninth rib pathological fracture--POA Incentive spirometry Minimize narcotics as able Metastatic breast cancer Ongoing radiation therapy Continue dexamethasone, keppra, memantine Minimize narcotics as able Has follow-up with [facility] oncology scheduled HTN BP stable Continue atenolol, losartan Resume HCTZ on discharge Monitor BP DM II Continue insulin while hospitalized Monitor blood glucose levels HLD Continue statin Hypothyroidism Continue levothyroxine DVT Px: SQ Lovenox Code Status: Full Code Disposition: Home Admission and Anticipated Discharge Date Admission Date: January 26, 2025 Subjective Patient is seen and examined at bedside Reports having some back pain and headache this morning Tolerated regular diet with no issues Prefers to be discharged home today Denies any chest pain, dyspnea, nausea, vomiting, abdominal pain Review of Systems Review of Systems: All systems reviewed & are unremarkable except as noted in Subjective Physical Exam Physical Exam: Physical Exam: Vitals signs as noted above General Appearance:Moderately built and nourished, no apparent distress, chronic ill appearing Head: normocephalic, Atraumatic Eyes: normal inspection, EOMI Neck: supple, Trachea midline Respiratory/Chest: Normal breath sounds, CTA, No accessory muscle use Cardiovascular: S1, S2, No murmur Abdomen/GI:Soft, non tender, Bowel sounds present Extremities/Musculoskeletal:normal inspection, no edema Neurologic/Psych:AAOX3, grossly no focal neurological deficits Skin: normal color, warm Results & Data Results & Data Vital Signs (Past 12 Hours) Vital Signs Temp Pulse Pulse Resp BP Pulse Ox O2 Del Method 01/30/25 07:23 37.1 C 85 16 122/79 96 Room Air 01/30/25 07:00 76 01/30/25 03:47 36.7 C 79 16 129/78 96 Room Air 01/29/25 23:09 36.9 C 68 18 125/81 96 Room Air 01/29/25 21:43 67 (3) Constipation Constipation type: unspecified constipation type Qualified Code(s): K59.00 - Constipation, unspecified (6) Hypertension Hypertension type: primary hypertension Qualified Code(s): I10 - Essential (primary) hypertension (8) Hypothyroidism Hypothyroidism type: unspecified Qualified Code(s): E03.9 - Hypothyroidism, unspecified
--- NOTE | 2025-01-30 10:32 | Surgery Progress Note ---
Date of Service January 30, 2025 Assessment & Plan (1) Bowel perforation: Plan: home today on po abx, augmentin regular diet F/U with Dr Dukes in 1-2 weeks will sign off Admission and Anticipated Discharge Date Admission Date: January 26, 2025 Subjective feels well taking po well Review of Systems Constitutional: no fever and no chills Respiratory: no cough and no dyspnea Cardiovascular: no chest pain Gastrointestinal: no abdominal pain, no nausea, no vomiting and no change in bowel habits Genitourinary: no dysuria Neurologic: no localized weakness and no generalized weakness Psychiatric: no behavioral changes Physical Exam Constitutional: WD/WN, vitals as above Respiratory: normal respiratory effort, lungs clear to auscultation Cardiovascular: RRR, no murmur, no edema Gastrointestinal (Abdomen): Inspection/Auscultation: abdomen normal to inspection and normal bowel sounds; abdomen not distended Percussion/Palpation: abdomen soft; abdomen nontender, no guarding and abdomen not rigid Musculoskeletal: Head/Neck/Chest: normocephalic and head atraumatic Skin: no rashes, warm and dry Results & Data Vital Signs (Past 12 Hours) Vital Signs Temp Pulse Pulse Resp BP Pulse Ox O2 Del Method 01/30/25 09:49 Room Air 01/30/25 07:23 37.1 C 85 16 122/79 96 Room Air 01/30/25 07:00 76 01/30/25 03:47 36.7 C 79 16 129/78 96 Room Air 01/29/25 23:09 36.9 C 68 18 125/81 96 Room Air
--- NOTE | 2025-01-30 14:24 | Discharge Summary ---
Date of Service January 30, 2025 Admission HPI Per Admitting Provider 69 year old female with PMH significant for HTN, HLD, DM II, hypothyroidism, breast cancer in 2022 s/p bilateral mastectomy, recently diagnosed metastasis to spine, pelvis, liver, spleen, lungs, brain in December 2024 after developed seizure and was found to have brain metastasis who presented to the ED today with abdominal pain, nausea, and constipation x4 days. Patient was recently admitted from 01/19 to 01/22 for N/V/D and was managed with supportive care. Her stool softeners were held while she was in the hospital but she resumed them at home. She then came to the ED on 01/24 for constipation after not having a bowel movement since 01/22. Per review of ED note, patient was provided magnesium citrate and scripts for Reglan and Phenergan, but it does not appear that these scripts were filled per med rec. Patient returned to the ED today for ongoing constipation with nausea and abdominal pain. She explains that she tried senna, magnesium citrate, and a Phenergan suppository with no BM. Her abdominal pain is localized to her left side and was initially 10/10 but came down to a 8/10 after IV morphine in the ED. She denies fevers, chills, chest pain, SOB, urinary symptoms. She lives at home with her and uses a cane to walk. She is currently undergoing radiation therapy to her brain and back with Dr. Ly of [place]. She was supposed to receive radiation every day this week. She also follows with Dr. Zapata of [facility] and Dr Castillo of [facility]. Admission Exam Per Admitting Provider General/Psych: WD/WN, sitting up in bed, NAD, conversing easily, euthymic affect Head: normocephalic, atraumatic Eyes: normal inspection, PERRL, conjunctivae pink, anicteric sclerae ENT: external ear and nose normal, oropharynx normal Neck: normal visual inspection, trachea midline, no thyromegaly Respiratory: normal respiratory effort, lungs clear to auscultation, no wheeze/rales/rhonchi, no accessory muscle use Cardiovascular: regular rate and rhythm, no murmur/rub/gallop, no JVD Extremities: no cyanosis or clubbing, normal peripheral pulses, no BLE edema Abdomen/GI: normal bowel sounds, soft, no hepatosplenomegaly, tenderness in LUQ and LLQ on palpation Neurologic/MSK: A+Ox3, thought process is delayed, moves all extremities Skin: no rashes, normal color, warm and dry Principal Diagnosis Enteritis with microperforation of jejunum Left ninth rib pathological fracture Metastatic breast cancer Discharge Data Allergies Allergy/AdvReac Type Severity Reaction Status Date / Time No Known Allergies Allergy Verified 01/03/25 09:48 Consultations 01/26/25 09:41 Consult General Surgery Stat ED Decision to Admit Stat Procedures Performed Laboratory Results WBC 7.75 K/ul (4.8-10.8) 01/29/25 07:04 RBC 4.09 M/uL (4.20-5.40) L 01/29/25 07:04 Hgb 11.1 g/dl (12.0-16.0) L 01/29/25 07:04 POC Hgb 15.3 g/dl (12.0-16.0) 01/26/25 07:40 Hct 34.1 % (37.0-47.0) L 01/29/25 07:04 POC Hct 45 % (37-47) 01/26/25 07:40 MCV 83.4 fL (80.0-100.0) 01/29/25 07:04 MCH 27.1 pg (25.0-34.0) 01/29/25 07:04 MCHC 32.6 g/dL (32.0-36.0) 01/29/25 07:04 RDW Std Deviation 47.7 fL (36.4-46.3) H 01/29/25 07:04 RDW Coeff of El 15.9 % (11.5-14.5) H 01/29/25 07:04 Plt Count 272 K/uL (130-400) 01/29/25 07:04 MPV 9.6 fL (9.4-12.4) 01/29/25 07:04 Immature Gran % (Auto) 1.0 % 01/26/25 07:32 Neut % (Auto) 91.1 % 01/26/25 07:32 Lymph % (Auto) 3.7 % 01/26/25 07:32 [place] % (Auto) 3.1 % 01/26/25 07:32 Eos % (Auto) 1.0 % 01/26/25 07:32 Baso % (Auto) 0.1 % 01/26/25 07:32 Neut # (Auto) 6.39 K/uL (1.40-6.50) 01/26/25 07:32 Lymph # (Auto) 0.26 K/uL (1.20-3.40) L 01/26/25 07:32 [place] # (Auto) 0.22 K/uL (0.11-0.59) 01/26/25 07:32 Eos # (Auto) 0.07 K/uL (0.00-0.50) 01/26/25 07:32 Baso # (Auto) 0.01 K/uL (0.00-0.20) 01/26/25 07:32 Immature Gran # (Auto) 0.07 K/uL (0.01-0.20) 01/26/25 07:32 Toxic Vacuolation 2+ 01/26/25 07:32 Polychromasia 1+ 01/26/25 07:32 POC Sodium 133 mmol/L (135-144) L 01/26/25 07:40 Sodium 135 mmol/L (136-145) L 01/29/25 07:04 POC Potassium 4.2 mmol/L (3.3-5.0) 01/26/25 07:40 Potassium 4.3 mmol/L (3.5-5.1) 01/29/25 07:04 POC Chloride 96 mmol/L (101-112) L 01/26/25 07:40 Chloride 101 mmol/L (98-107) 01/29/25 07:04 Carbon Dioxide 31 mmol/L (21-32) 01/29/25 07:04 POC Total CO2 26 mmol/L (24-31) 01/26/25 07:40 Anion Gap 3 (3-11) 01/29/25 07:04 POC Anion Gap 17.0 mmol/L (16-25) 01/26/25 07:40 POC BUN 28 mg/dl (7-18) H 01/26/25 07:40 BUN 11 mg/dl (6-23) 01/29/25 07:04 Creatinine 0.46 mg/dl (0.6-1.2) L 01/29/25 07:04 POC Creatinine 1.0 mg/dl (0.6-1.3) 01/26/25 07:40 Est Cr Clr Drug Dosing 85.2 ml/min 01/29/25 07:04 eGFR 104.82 01/29/25 07:04 BUN/Creatinine Ratio 23.9 (10-20) H 01/29/25 07:04 Glucose 127 mg/dl (70-99(Fasting)) H 01/29/25 07:04 POC Glucose 226 mg/dl (70-99) H 01/30/25 12:22 POC Glucose (other) 189 mg/dl (70-99) H 01/26/25 07:40 Calcium 8.5 mg/dl (8.6-10.3) L 01/29/25 07:04 POC Ioniz Calcium Kaylynn 1.12 mmol/l (1.12-1.32) 01/26/25 07:40 Magnesium 2.4 mg/dl (1.7-2.4) 01/28/25 11:40 Total Bilirubin 0.5 mg/dl (0.2-1.0) 01/28/25 11:40 Direct Bilirubin 0.1 mg/dl (0-0.2) 01/28/25 11:40 AST 64 U/L (13-39) H 01/28/25 11:40 ALT 51 U/L (7-52) 01/28/25 11:40 Alkaline Phosphatase 209 U/L (34-104) H 01/28/25 11:40 Total Protein 6.0 gm/dl (6.0-8.3) 01/28/25 11:40 Albumin 3.1 gm/dl (3.4-5.0) L 01/28/25 11:40 Globulin 4.1 gm/dl (2.5-4.0) H 01/26/25 07:32 Albumin/Globulin Ratio 1.0 (0.9-2) 01/26/25 07:32 Lipase 33 U/L (11-82) 01/26/25 07:32 Urine Color Yellow 01/26/25 11:03 Urine Appearance Clear (Clear) 01/26/25 11:03 Urine pH 7.0 (4.5-7.5) 01/26/25 11:03 Ur Specific [place] > 1.045 (1.000-1.030) H 01/26/25 11:03 Urine Protein Negative (Negative) 01/26/25 11:03 Urine Glucose (UA) Negative (Negative) 01/26/25 11:03 Urine Ketones Negative (Negative) 01/26/25 11:03 Urine Blood Negative (Negative) 01/26/25 11:03 Urine Nitrite Negative (Negative) 01/26/25 11:03 Urine Bilirubin Negative (Negative) 01/26/25 11:03 Urine Urobilinogen Negative (Negative) 01/26/25 11:03 Ur Leukocyte Esterase Negative (Negative) 01/26/25 11:03 Impressions Abdomen/Pelvis CT 01/26/25 07:[address] WITH IV CONTRAST CT DOSE: 912.84 mGy.cm HISTORY: Acute generalized abdominal pain worsening abd pain w/ cancer no BM TECHNIQUE: Multiaxial CT images of the abdomen and pelvis were performed following the IV administration of 94 cc of Optiray, A dose lowering technique was utilized adhering to the principles of ALARA. COMPARISON STUDY: 01/24/2025, outside hospital PET/CT from 12/29/2024 FINDINGS: Cardiomegaly with coronary artery calcifications. Partially imaged lower thoracic lymphatic and pulmonary metastasis redemonstrated which are unchanged from the study from 48 hours earlier.r 1.8 cm metastatic nodules in the left lower lobe on image 21 previously measured 1.7 cm on the prior PET/CT. Right lower lobe mucus plugging again noted along with linear right basilar consolidation and small right pleural effusion. No pneumatosis or pneumoperitoneum. 2 cm hypodense focus in the spleen on image 64 series 3 suggestive of metastasis again noted. Mild to moderate atrophy of the pancreas. Unchanged small nodular foci of the adrenal glands again noted measuring up to approximately a centimeter. Cholelithiasis without CT evidence of acute cholecystitis. Multifocal hepatic metastasis again noted. Dominant 4 similar left hepatic lobe lesion on image 122 generally unchanged from the prior PET/CT. Patency of the hepatic and portal veins. Numerous hypodense foci of the kidneys are unchanged, most which are too small to characterize. A 1.7 cm lesion within the inferior pole left kidney appears to demonstrate enhancement. Renal metastasis again are differential consideration. No hydronephrosis. Indeterminate 9 mm hypodense lesion within the posterior uterus on image 242 was hypermetabolic on the prior study. No abdominal aortic aneurysm. Unchanged necrotic lymphatic metastasis of the upper abdomen. Distal esophageal wall thickening. No bowel obstruction. Colonic diverticulosis without acute diverticulitis. Moderate fecal retention of the ascending and transverse colon. Normal appendix. There is mild wall thickening noted involving a loop of jejunum within the abdominal quadrant with adjacent inflammatory stranding, image 92 series 3. Additionally, there are a few locules of eccentrically located air which appear to be outside of the lumen on image 82 series 3. Partially calcified 2.6 cm nodular focus within the subcutaneous anterior abdominal wall again noted. Additionally, there are several subcentimeter subcutaneous nodular foci within the intra-abdominal wall likely representing additional metastasis. He is also unchanged. Multifocal osseous metastasis again noted without acute pathologic fracture. Pathologic fracture of the lateral left ninth rib however has progressed from the prior PET/CT. A few scattered subcentimeter metastatic omental/peritoneal nodules are also again seen. IMPRESSION: 1. Findings compatible with a mild nonspecific enteritis involving a loop of jejunum within the abdominal left upper quadrant. Additionally, there are a few locules of adjacent air which appear to be outside of the lumen suggestive of associated microperforation. 2. Extensive metastatic disease redemonstrated as above. 3. Colonic diverticulosis without acute diverticulitis. 4. Moderate fecal retention within the ascending and transverse colon. 5. Pathologic fracture lateral left ninth rib is again noted which has progressed from the 12/29/2024 PET/CT. ACT 112: Negative or not required by law. The above report was generated using voice recognition software. It may contain grammatical, syntax or spelling errors. Electronically signed by: Hola Lei M.D. 01/26/2025 8:29 AM Ordered Studies 01/26/25 07:04 CT abd pelvis IV con only Stat Hospital Course (1) Enteritis: (2) Nausea: (3) Constipation: (4) Metastatic breast cancer: (5) Diabetes: (6) Hypertension: (7) Dyslipidemia: (8) Hypothyroidism: Plan 69 year old female with PMH significant for HTN, HLD, DM II, hypothyroidism, breast cancer in 2022 s/p bilateral mastectomy, recently diagnosed metastasis to spine, pelvis, liver, spleen, lungs, brain in December 2024 after developed seizure and was found to have brain metastasis who presented to the ED today with abdominal pain, nausea, and constipation x4 days and was found to have enteritis and microperforation. Enteritis with microperforation of jejunum Nausea, constipation --CT abd:revealed enteritis, microperforation, diverticulosis, moderate fecal retention. Also re-demonstrated extensive metastatic disease and pathologic frac ture lateral left ninth rib No urgent surgical intervention per surgery Appreciate surgery input Received IV fluids Continue IV antibiotics, Zosyn Continue stool softeners Tolerating regular diet Discharge on oral antibiotics to complete the course Advised to follow-up with surgery on discharge Left ninth rib pathological fracture--POA Incentive spirometry Minimize narcotics as able Metastatic breast cancer Ongoing radiation therapy Continue dexamethasone, keppra, memantine Minimize narcotics as able Has follow-up with [facility] oncology scheduled HTN BP stable Continue atenolol, losartan Resume HCTZ on discharge Monitor BP DM II Continue insulin while hospitalized Monitor blood glucose levels HLD Continue statin Hypothyroidism Continue levothyroxine DVT Px: SQ Lovenox Code Status: Full Code Disposition: Home Total Time Total Time Spent Total Time Spent (In Minutes): 53 minutes Discharge Plan Discharge Items Patient Disposition: Home - Self-Care Reason For Visit: ABDOMINAL PAIN Discharge Diagnosis: Enteritis with microperforation of jejunum Left ninth rib pathological fracture Metastatic breast cancer Activity: Per Instructions section Exercise/Sports: Gradually increase as tolerated Non-emergency contact: Primary Care Provider and Surgeon Call non-emergency contact if: you have any medication questions, your symptoms worsen, your pain is concerning for you and you have a fever Follow-up/Referrals: Favian Castellon DO [Primary Care Provider] - (Date & Time 02/04/2025 8:40 AM Provider: Leatha Jennings DO [facility] ) Diet: Carb Consistent or DM2 Addtl Attending Provider Instructions: -- Follow-up with your primary care physician Dr. Favian Castellon on 02/04/2025 8:40 AM -- Follow-up with your surgeon Dr. Dukes in 1-2 weeks --Complete the antibiotic course Augmentin as prescribed Seek immediate medical attention if your symptoms reoccur or worsen Please review medication list provided on discharge for any medication changes as instructed. Please call if you have any questions or problems. You can reach a [facility] hospitalist on duty at [facility] 24 hours a day by calling [phone] Pending Studies at Discharge: No Stand-Alone Forms: My [facility] TeraView, Smoking Cessation Medications and DC Order Prescriptions: New docusate sodium 100 mg Capsule 100 mg PO BID PRN (Reason: Constipation) Qty: 60 0RF Advanced Probiotic 625 mg (10 billion cell) Capsule 1 cap PO DAILY Qty: 10 0RF amoxicillin-pot clavulanate 875-125 mg tablet 1 tab PO BID Qty: 14 0RF Continued urea 20 % cream 1 applic topical BID PRN (Reason: Other) insulin glargine [Lantus U-100 Insulin] 100 unit/mL solution 30 unit subcut HS (DME) FreeStyle Precision Humza Strips strip See Dose Instructions .ROUTE .MEDSUPPLY Qty: 6 3RF Dose Instruction: As directed Rx Instructions: test 3 times daily as needed to calibrate meter (DME) FreeStyle Adán 14 Day [place] Misc See Dose Instructions .ROUTE .MEDSUPPLY Qty: 1 0RF Dose Instruction: As directed Rx Instructions: For use with FreeStyle Adán 14 Day Sensors (DME) FreeStyle Adán 14 Day Sensor Kit See Dose Instructions .ROUTE .MEDSUPPLY Qty: 7 3RF Dose Instruction: As directed Rx Instructions: For use with FreeStyle Adán 14 day [place] Device dexamethasone 4 mg tablet 4 mg PO Q12H Qty: 30 2RF Rx Instructions: Start Date 01/17/25 x15 day supply (DME) pen needle, diabetic [BD Ultra-Fine Kamala Pen Needle] 32 gauge x 5/32" needle See Dose Instructions .ROUTE .MEDSUPPLY Qty: 10 Rx Instructions: Inject insulin 4 times a day (DME) Ketostix strip See Dose Instructions .ROUTE .MEDSUPPLY Qty: 25 Rx Instructions: Test urine 2-3 times a day Novolog FlexPen U-100 Insulin 100 unit/mL (3 mL) insulin pen 5 - 25 units SQ UD Patient Comments: 45 unit SQ Breakfast =5 and Lunch = 15 units, Dinner = 25 units plus sliding scale ; Rx Instructions: Last filled 09/10/2024 x84 day supply5 units in am; 15 units lunch; 25 units at dinner (DME) lancets [OneTouch Delica Lancets] 33 gauge misc See Dose Instructions .ROUTE .MEDSUPPLY Qty: 100 Rx Instructions: Test blood sugars 2 times day ergocalciferol (vitamin D2) 50,000 unit capsule 50,000 units PO WEEKLY Qty: 14 Patient Comments: takes on Fridays Rx Instructions: Last filled 08/19/2024 x90 day supply aspirin [Karrie Low Dose Aspirin] 81 mg Tablet,Delayed Release (Dr/Ec) 81 mg PO QAM Rx Instructions: Unable to verify OTC meds at this date/time. levothyroxine 100 mcg tablet 100 mcg PO QAM Patient Comments: 100 mcg PO TAKE ON AN EMPTY STOMACH WITH A FULL GLASS OF WATER, WAIT 30 MINUTES TO EAT, DRINK, OR TAKE MEDICATIONS; Rx Instructions: Last filled 09/11/2024 x90 day supply. 100 mcg PO TAKE ON AN EMPTY STOMACH WITH A FULL GLASS OF WATER, WAIT 30 MINUTES TO EAT, DRINK, OR TAKE MEDICATIONS; atorvastatin 80 mg tablet 80 mg PO PM Rx Instructions: Last filled 09/10/2024 x90 day supply atenolol 25 mg Tablet 25 mg PO QAM Rx Instructions: Last filled 09/11/2024 x90 day supply losartan-hydrochlorothiazide 100-25 mg Tablet 1 tab PO PM Hold Instructions: Resume on 01/24/25. discuss w/ your primary care doctor or oncologist before resuming levetiracetam 500 mg tablet 500 mg PO BID morphine 15 mg tablet 15 mg PO Q4H PRN (Reason: Severe Pain (Scale Score 7-10)) Rx Instructions: Start Date 01/15/25 x3 day supply memantine 5 mg tablet 5 mg PO UD Rx Instructions: Filled 01/03/25 x18 day supply - per son, he thinks she's titrated up to 2 tablets po bid. Titration upward. Instruction sheet given. Instruction sheet faxed to the pharmacy. acetaminophen 500 mg Tablet 1,000 mg PO Q8H PRN (Reason: Pain) Rx Instructions: Unable to verify OTC meds at this date/time. omeprazole 20 mg capsule,delayed release(DR/EC) 20 mg PO DAILY Mounjaro 12.5 mg/0.5 mL pen injector 12.5 mg SUBCUT WK Rx Instructions: takes on Fridays sennosides 8.6 mg Tablet 8.6 mg PO BID Rx Instructions: Unable to verify OTC meds at this date/time. promethazine 25 mg suppository 25 mg AK Q6H PRN (Reason: nausea and vomiting) Qty: 12 0RF metoclopramide HCl [Reglan] 10 mg tablet 10 mg PO QID 7 Days Qty: 28 0RF Discharge Orders: Discharge Order (Routine); Ordered 01/30/25 Ordered By: Ethan Oh Admission Data Admit Date/Time: 01/26/25 11:04 Attending Provider: Ethan Oh Admit Provider: Anthony Fraga Primary Care Provider: Favian Castellon Other Providers: Shabbir Dukes; Anthony Fraga; [facility] Other Interventions: Discharge Summary Assessment (RN) Last Done: 01/30/25 11:15
== END 2025-01-30 13:59 | disposition home health service (06) | DRG 391 ==
LOC: ED 06:41 → EDINP 11:04 → SUATTDRO 11:04 → 2N 14:19